=== PATIENT | male | born 1950 | race Caucasian/White ===

== ENCOUNTER → 2020-02-20 10:53 | Outpatient (BNVA) | payer MEDICARE, BC, SELFPAY | PROVIDERS: PCP Internal Medicine Endocrinology, Diabetes & Metabolism; Visit Provider Urology | DX: C61 Malignant neoplasm of prostate (principal); E29.1 Testicular hypofunction | CPT/HCPCS: 99212; Q3014 ==

== ENCOUNTER → 2020-08-20 10:01 | Outpatient (BNVA) | payer MEDICARE, SELFPAY | PROVIDERS: PCP Internal Medicine Endocrinology, Diabetes & Metabolism; Visit Provider Urology | DX: C61 Malignant neoplasm of prostate (principal); E29.1 Testicular hypofunction | CPT/HCPCS: 99212 ==

== ENCOUNTER → 2021-04-07 11:38 | Outpatient (BNVA) | payer MEDICARE, BC, SELFPAY | PROVIDERS: PCP Internal Medicine Endocrinology, Diabetes & Metabolism; Visit Provider Urology | DX: Z13.89 Encounter for screening for other disorder (principal) | CPT/HCPCS: 99212 ==

== ENCOUNTER → 2021-10-28 11:50 | Outpatient (BNVA) | payer MEDICARE, BC, SELFPAY | PROVIDERS: PCP Internal Medicine Endocrinology, Diabetes & Metabolism; Visit Provider Urology | DX: E29.1 Testicular hypofunction (principal); C61 Malignant neoplasm of prostate | CPT/HCPCS: Q3014 ==

== ENCOUNTER → 2022-07-20 15:16 | Outpatient (BNVA) | payer MEDICARE, BC, SELFPAY | PROVIDERS: PCP Internal Medicine Endocrinology, Diabetes & Metabolism; Visit Provider Urology | DX: E29.1 Testicular hypofunction (principal); R39.15 Urgency of urination; C61 Malignant neoplasm of prostate | CPT/HCPCS: 99212 ==

== ENCOUNTER 2023-02-08 11:40 | Outpatient (AMB) | payer MEDICARE, BC, SELFPAY ==
--- NOTE | 2023-02-08 11:42 | MHC.OFFVIS ---
Intake Intake Visit Reasons: 6m/labs(set) Intake Note: Patient is Present for Follow Up LABS Urology Medication: Tadalafil, testosterone Antibiotic Allergies: None Blood Thinners: None Allergies No Known Allergies Allergy (Verified 02/08/23 11:46) Medication List - Last Reconciled 02/08/23 by Dante Lemus MD allopurinol 300 mg PO DAILY atorvastatin 80 mg PO DAILY carvedilol 12.5 mg PO BID carvedilol 6.25 mg PO BID colchicine 0.6 mg PO DAILY dorzolamide-timolol 22.3-6.8 mg/mL 1 drp ophthalmic-Right BID fluoxetine 20 mg PO DAILY gabapentin 1,200 mg PO BID imipramine HCl 50 mg PO BID 90 days insulin syringe-needle U-100 (BD Insulin Syringe) As directed ketoconazole 2% topical DAILY PRN ketorolac 0.5% 1 drp ophthalmic (eye) QID latanoprost 0.005% 1 drp ophthalmic-Right DAILY lisinopril 5 mg PO DAILY nitroglycerin mg sublingual ondansetron HCl 4 mg PO Q8H prednisone 10 mg PO QAM spironolactone 25 mg PO DAILY syringe with needle As directed tadalafil 5 mg PO DAILY 90 days testosterone cypionate (Depo-Testosterone) 60 mg (0.3 mL) subcut QWEEK 4 weeks HPI HPI Comments History of Present Illness Details J Carlos is a pleasant male. He is a patient of Dr Dillon. He is seen for the following urologic conditions - hypogonadism - prostate cancer Follow-up from use of daily tadalafil Bladder has stabilized Has refill Will continue on testosterone represcribed Labs 04/15 PSA <0.1, T 400, 02/12 <0.1 T 380 Symptoms remain stable Continue with low-dose testosterone 6 month follow-up lab work Accompanied by Stephanie. She has run out of estradiol and requesting refill. Hypogonadism: T at 0.3 cc subcu weekly Tuesday He presents today for further evaluation and followup of his hypogonadism. Initial symptoms include erectile dysfunction Yes decreased libido Yes change in mood/depression Yes in muscle size/strength Yes increased fatigue/malaise Yes increased abdominal fat No tender breasts/gynecomastia No hair loss No osteopenia No The onset of symptoms has been gradual, over the past few years. 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 Therapeutic plan continue current medication - review in 6m. Prostate cancer: Grade group 3 radical prostatectomy 2008 For ED instructions given for use of MUSE. Can try sildenafil 200 mg. This is the maximum dose. Prescription provided. Prostate cancer was diagnosed 2008 Dr Lemus. Diagnosis was reached by needle biopsy, for elevated PSA, PSA at diagnosis 5.4. The [place] grade is 4+3 = 7, at surgery. TNM Classification of Malignant Tumours (TNM) T1c. The D'Spark[place] (NCCN) risk category is Intermediate Risk (PSA 10-20, Gl 7, T2). Initial therapy included Primary treatment, Prostatectomy (RRP/Robotic) 2008 , Additional treatment, Observation. Recent labs included a PSA (prostate-specific antigen) 2015, < 0.1 05/07 , a PSA (prostate-specific antigen), < 0.1 03/10 , a PSA (prostate-specific antigen), < 0.1 09/07 , a PSA (prostate-specific antigen), < 0.1 08/10 PSA < 0.1, 02/09 <0.1 - 08/11 <0.1 Therapeutic plan: Continue with surveillance [facility] Medical History Gout Hypercholesterolemia Depression Hypogonadism in male Stress incontinence, male HTN (hypertension) Glaucoma Erectile dysfunction after radical prostatectomy Prostate cancer Surgical History History of surgery Review of Systems Const Denies chills and Denies fever(s) Card Reports no additional complaints and Denies syncope Resp Denies cough GI Denies abdominal pain and Denies heartburn Reports as per HPI and Denies change in libido Neuro Denies syncope Psych Denies change in libido Endo Denies change in libido Physical Exam Const General: cooperative, healthy appearing, comfortable and no acute distress Orientation/consciousness: patient oriented x3 HEENT Face and sinus: Yes normal facial exam Mouth: moist mucous membranes Neck Neck: Yes normal visual inspection, Yes full ROM and Yes trachea midline Chest Chest palpation & inspection: normal inspection of the chest Resp Effort & Inspection: normal respiratory effort, able to speak in complete sentences and no respiratory distress GI Inspection: Yes normal to inspection Back/Spine/Pelvis Cervical Spine: normal cervical lordosis Thoracic/Lumbar Spine: thoracic and lumbar spine normal to inspection Skin General skin exam: no rashes or lesions noted Neuro General: patient oriented x3, gait normal, tone normal and moves all extremities Extrem General: Yes normal to inspection and Yes capillary refill normal Assessment & Plan Assessment & Plan (1) Hypogonadism in male: Code(s): E29.1 - Testicular hypofunction (2) Prostate cancer: Code(s): C61 - Malignant neoplasm of prostate Plan Six month follow-up Orders: Orders Prostate Specific Antigen 6 Months E29.1 - Testicular hypofunction Testosterone, Total 6 Months E29.1 - Testicular hypofunction Complete Blood Count no Diff 6 Months E29.1 - Testicular hypofunction Patient Instructions: Imaging studies, laboratory and physical exam results were discussed and reviewed in detail. No major barriers to patient understanding were identified. An opportunity to ask questions regarding the treatment plan was provided. All questions were answered. The patient expressed understanding and agreement with the above treatment plan. The patient is aware they should contact our office by phone for worsening of their current condition or the appearance of new urologic symptoms. Compliance is encouraged with any medications and followup testing that is ordered. It is a privilege to participate in the urologic care of your patient. If you have any questions or concerns regarding treatment for the above conditions, or other urologic issues, please do not hesitate to contact me. The office telephone contact is [phone]. This note is constructed using voice recognition software. While every effort has been made to ensure accuracy players assistant errors may have been included. Yours sincerely, Dr Dante Lemus MD, [facility] - Urology Providers of Expert, Compassionate Care for the Genitourinary System Coding Level of Care Code Est Pt Level 3 (56557) Diagnoses Hypogonadism in male E29.1 Prostate cancer C61
== END 2023-02-08 12:27 | disposition home or self-care (01) ==
PROVIDERS: Visit Provider Urology
DX: E29.1 Testicular hypofunction (principal); C61 Malignant neoplasm of prostate
CPT/HCPCS: 99213

== ENCOUNTER → 2023-02-08 11:40 | Outpatient (BNVA) | payer MEDICARE, BC, OTHER, SELFPAY | PROVIDERS: Visit Provider Urology | DX: E29.1 Testicular hypofunction (principal); C61 Malignant neoplasm of prostate | CPT/HCPCS: 99212 ==

== ENCOUNTER 2024-01-06 14:18 | Outpatient (AMB) | payer MEDICARE, SELFPAY ==
--- NOTE | 2024-01-06 16:10 | MHC.OFFVIS ---
Intake Visit Reasons: PSA/Testo/cbc follow up(set) Intake Note: Patient is present for Telephone Labs follow up= PSA/TESTO/CBC Urology Med: Testosterone, Tadalafil Antibiotic Allergy: None Blood Thinner: None PSA: 11/18/23- <0.1 Testosterone: 11/18/23 61 Hemoglobin A1C 11.8 Application Systems Administrator Required: No Accompanied by: Self / Same As Patient Allergies No Known Allergies Allergy (Verified 01/06/24 16:10) HPI Comments Details: J Carlos is a pleasant male. He is a patient of Dr Dillon. He is seen for the following urologic conditions - hypogonadism - prostate cancer Telemedicine Evaluation 15 min Consultation DoxLensAR Arkesh Video attempted Restarted testosterone last month Labs from October extremely low Bladder is continued to show stabilization with daily tadalafil Does occasionally have episodes where he urinates excessive amounts Labs 04/15 PSA <0.1, T 400, 02/12 <0.1 T 380, 11/14 T 61 <0.1 Symptoms remain stable Continue with low-dose testosterone 6 month follow-up lab work Hypogonadism: T at 0.3 cc subcu weekly Wed He presents today for further evaluation and followup of his hypogonadism. Initial symptoms include erectile dysfunction Yes decreased libido Yes change in mood/depression Yes in muscle size/strength Yes increased fatigue/malaise Yes The onset of symptoms has been gradual, over the past few years. 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 Therapeutic plan continue current medication - review in 6m. Prostate cancer: Grade group 3 radical prostatectomy 2008 For ED instructions given for use of MUSE. Can try sildenafil 200 mg. This is the maximum dose. Prescription provided. Prostate cancer was diagnosed 2008 Dr Lemus. Diagnosis was reached by needle biopsy, for elevated PSA, PSA at diagnosis 5.4. The [place] grade is 4+3 = 7 at surgery. TNM Classification of Malignant Tumours (TNM) T1c. The D'Sparkle (NCCN) risk category is Intermediate Risk (PSA 10-20, Gl 7, T2). Initial therapy included Primary treatment, Prostatectomy (RRP/Robotic) 2008 , Additional treatment, Observation. Recent labs included a PSA (prostate-specific antigen) 2015, < 0.1 05/07 , a PSA (prostate-specific antigen), < 0.1 03/10 , a PSA (prostate-specific antigen), < 0.1 09/07 , a PSA (prostate-specific antigen), < 0.1 08/10 PSA < 0.1, 02/09 <0.1 - 08/11 <0.1 Therapeutic plan: Continue with surveillance [facility] Medical History Gout Hypercholesterolemia Depression Hypogonadism in male Stress incontinence, male HTN (hypertension) Glaucoma Erectile dysfunction after radical prostatectomy Prostate cancer Surgical History History of surgery Review of Systems Const All systems reviewed & are unremarkable except as noted in HPI and below Reports no additional complaints Resp Reports no additional complaints GI Reports no additional complaints Reports as per HPI Musc Reports no additional complaints Physical Exam Telemedicine evaluation Appropriate responses Regular breathing rate and rhythm HEENT Head: Yes normal to inspection Ears: hearing grossly normal bilaterally Eyes General: appearance normal, both eyes and all related structures Neck Neck: Yes normal visual inspection Chest Chest palpation & inspection: normal inspection of the chest Resp Effort & Inspection: normal respiratory effort and able to speak in complete sentences Telehealth Telehealth Telehealth Platform: [facility] Location of provider rendering services: practice address Location of patient: address on file Patient Identification confirmed using: Name, : Yes Telehealth method: video Patient verbally consented to treatment: Yes Patient verbally consented to billing insurance company: Yes Patient informed of any privacy concerns related to visit: Yes Minutes spent on Phone/Video with Pt.: 15 Assessment & Plan Assessment & Plan (1) Prostate cancer: Code(s): C61 - Malignant neoplasm of prostate Category: Medical (2) Urinary urgency: Code(s): R39.15 - Urgency of urination Category: Medical Plan Five month follow-up lab work Orders: Orders Prostate Specific Antigen 5 Months E29.1 - Testicular hypofunction Testosterone, Total 5 Months E29.1 - Testicular hypofunction Complete Blood Count no Diff 5 Months E29.1 - Testicular hypofunction Medications: Discontinued imipramine HCl Discontinued Reason: Patient Completed Course 50 mg PO BID 90 days 180 tabs 2RF Patient Instructions: Imaging studies, laboratory and physical exam results were discussed and reviewed in detail. No major barriers to patient understanding were identified. An opportunity to ask questions regarding the treatment plan was provided. All questions were answered. The patient expressed understanding and agreement with the above treatment plan. The patient is aware they should contact our office by phone for worsening of their current condition or the appearance of new urologic symptoms. Compliance is encouraged with any medications and followup testing that is ordered. It is a privilege to participate in the urologic care of your patient. If you have any questions or concerns regarding treatment for the above conditions, or other urologic issues, please do not hesitate to contact me. The office telephone contact is [phone]. This note is constructed using voice recognition software. While every effort has been made to ensure accuracy arranger assembler errors may have been included. Yours sincerely, Dr Dante Lemus MD, [facility] - Urology Providers of Expert, Compassionate Care for the Genitourinary System Coding Level of Care Code Tele Est Pt Level 4 (30778) Diagnoses Prostate cancer C61 Urinary urgency R39.15
--- OUTSIDE RECORDS SUMMARY | 2024-01-13 12:01 | XMS_ITS | Continuity of Care Document ---
Author Organization [facility] Address [address] [place] [id number]- Care Team Providers Care Mineralogy Teacher Name Role Phone Eve Warren MD, Larissa Medina Primary Care Physic sophia [place] [facility] [place]): [place] 02/10/23 [facility] [address] [place] [id number]- Attending Physician: Isidoro Marx MD Allergies, Adverse Reactions, Alerts No Known Allergies Immunizations Given and Recorded Vaccine Date Status Refusal Reason influenza virus vaccine, inactivated 11/27/14 Give n pneumococcal 23-valent vaccine 1 12/15/10 Given 1Early/Late Reason: Other: Medications acetaminophen 500 mg oral tablet 2 tablet = 1,000 mg, By Mouth, Every 6 hours, 0 Refills, Maintenance, 02/03/23 11:28:00 EST, Partial fill upon patient request if the prescription is for a schedule II opioid drug. Start Date: 02/03/23 Status: Ordered acetaminophen-oxycodone 325 mg-7.5 mg oral tablet 1 tablet, By Mouth, 3 times a day, PRN Pain , Severe, (UP TO THREE TIMES DAILY) Start Date: 04/25/22 Status: Ordered allopurinol 300 mg oral tablet 300 mg, 1, tablet, By Mouth, Daily, Maintenance, 11/19/21 12:17:00 EDT, Partial fill upon patient request if the prescription is for a schedule II opioid drug. Start Date: 11/19/21 Status: Ordered amLODIPine 5 mg oral tablet 1 tablet, By Mouth, Daily, # 90 tablet, 3 Refills, Maintenance, 12/14/22 7:57:00 EDT, [id number], 178, cm, 10/15/22 8:07:00 EDT, Height, 99.3, kg, 08/22/22 14:01:00 EDT, Dry Weight Start Date: 12/14/22 Status: Ordered aspirin 81 mg oral delayed release tablet 81 mg, 1, tablet, By Mouth, Daily, Maintenance, 04/25/22 13:00:00 EST, Partial fill upon patient request if the prescription is for a schedule II opioid drug. Start Date: 04/25/22 Status: Ordered atorvastatin 80 mg oral tablet 1 tablet, By Mouth, Daily, # 90 tablet, 3 Refills, Maintenance, 11/22/22 7:50:00 EDT, [id number], 178, cm, 10/15/22 8:07:00 EDT, Height, 99.3, kg, 08/22/22 14:01:00 EDT, Dry Weight Start Date: 11/22/22 Status: Ordered carvedilol 12.5 mg oral tablet 1, tablet, By Mouth, 2 times a day, # 180 tablet, Refills 3, Maintenance, 02/10/23 15:08:00 EST, Route to Pharmacy Electronically, [id number], 178, cm, 02/03/23 11:28:00 EST, Height, 99.3, kg, 08/22/22 14:01:00 EDT, Dry Weight Start Date: 02/10/23 Status: Ordered CeleBREX 50 mg oral capsule 1 capsule = 50 mg, By Mouth, 2 times a day, 0 Refills, Maintenance, 10/15/22 8:17:00 EDT, Partial fill upon patient request if the prescription is for a schedule II opioid drug. Start Date: 10/15/22 Status: Ordered Chondroitin-Glucosamine 1 tablet, By Mouth, 2 times a day, Maintenance, 04/25/22 13:09:00 EST, Partial fill upon patient request if the prescription is for a schedule II opioid drug. Start Date: 04/25/22 Status: Ordered donepezil 5 mg oral tablet 1, tablet, By Mouth, Daily at bedtime, # 90 tablet, Refills 1, Maintenance, 11/10/22 14:37:00 EDT, Route to Pharmacy Electronically, [id number], 178, cm, 10/15/22 8:07:00 EDT, Height, 99.3, kg, 08/22/22 14:01:00 EDT, Dry Weight Start Date: 11/10/22 Status: Ordered dorzolamide-timolol 2.23%-0.68% ophthalmic solution 1 drops, Eye, Right, 2 times a day Start Date: 11/19/21 Status: Ordered duloxetine 30 mg oral enteric coated capsule 1 capsule = 30 mg, By Mouth, Daily, start taking from 11/28/21, # 30 capsule, 0 Refills, Maintenance, 11/28/21 9:00:00 EDT, [facility], Partial fill upon patient request if the prescription is for a schedule II opioid drug., 187, cm, 10/0... Start Date: 11/28/21 Status: Ordered furosemide 40 mg oral tablet See Instructions, 1 TABLET BY MOUTH EVERY TUESDAY, TUESDAY AND TUESDAY, # 39 tablet, Refills 1, Maintenance, 01/24/23 7:47:00 EST, Instructions Replace Required Details, Route to Pharmacy Electronically, [id number], 178, cm, 10/15/22 8:07:00 EDT,... Start Date: 01/24/23 Status: Ordered gabapentin 300 mg oral capsule 900 mg, 3, capsule, By Mouth, 2 times a day, # 180 capsule, Refills 5, Tot. Refills 5, Maintenance,10/15/22 8:33:00 EDT, Route to Pharmacy Electronically, [facility]/pharmacy #[id number], 178, cm, 10/15/22 8:07:00 EDT, Height, 99.3, kg, 08/22/22 14:01:00 EDT, Dry... Start Date: 10/15/22 Stop Date: 04/13/23 Status: Ordered latanoprost 0.005% ophthalmic solution 1 drops, Eye, Right, Daily at bedtime, 0 Refills, Maintenance, 01/01/18 18:46:39 EST Start Date: 01/01/18 Status: Ordered Multivitamin 1 tab, By Mouth, Daily, 0 Refills, Maintenance, 01/01/18 20:23:10 EST Start Date: 01/01/18 Status: Ordered naloxone 4 mg/0.1 mL nasal spray = 4 mg, Naris, Right, Once, may repeat every 2 to 3 minutes until patient responds, # 2 each, 0 Refills, Soft Stop, 08/22/22 16:30:00 EDT, [facility], Partial fill upon patient request if the prescription is for a schedule II opioid drug... Start Date: 08/22/22 Status: Ordered nitroglycerin 0.4 mg sublingual tablet 1 tablet = 0.4 mg, Sublingual, Every 5 minutes, PRN for chest pain, not to exceed 3 doses/15 min--if pain persists, seek medical attention, # 100 tablet, 1 Refills, Maintenance, 05/29/21 14:41:00 EDT, Tablet, [facility]/pharmacy #[id number], 186, cm, 05/29/21 14:1... Start Date: 05/29/21 Status: Ordered Potassium Chloride (Eqv-K-Tab) 20 mEq oral tablet, extended release 2 tablet = 40 mEq, By Mouth, Every Tuesday, Tuesday and Tuesday, Maintenance, 04/25/22 13:05:00 EST, Partial fill upon patient request if the prescription is for a schedule II opioid drug. Start Date: 04/25/22 Status: Ordered potassium chloride 10 mEq oral tablet, extended release = 20 mEq, By Mouth, Once, # 30 capsule, 0 Refills, Soft Stop, 02/10/23 15:02:00 EST, ER Tablet, [facility]/pharmacy #[id number], Partial fill upon patient request if the prescription is for a schedule II opioid drug., 178, cm, 02/03/23 11:28:00 EST, Height, 99.3,... Start Date: 02/10/23 Status: Ordered rocío stockings 15 to 20 rocío stockings 15 to 20, See Instructions, # 1 each, Refills 0, Tot. Refills 0, Maintenance, rocío stockings 15-20 mmHg, 11/24/21 11:14:00 EDT, Supply, 187, cm, 11/24/21 7:18:00 EDT, Height, 91, kg, 11/20/21 17:55:00 EDT, Dry Weight Start Date: 11/24/21 Status: Ordered Testosterone Cypionate 200 mg/mL intramuscular solution 0.2 mL = 40 mg, Intramuscular, Every Tuesday Start Date: 11/19/21 Status: Ordered thiamine 100 mg oral tablet 100 mg, 1, tablet, By Mouth, 2 times a day, # 60 tablet, Refills 0, Tot. Refills 0, Maintenance, 11/24/21 11:13:00 EDT, Route to Pharmacy Electronically, [facility], Partial fill upon patient request if the prescription is for a schedule... Start Date: 11/24/21 Stop Date: 12/24/21 Status: Ordered Vitamin B12 1 tablet, By Mouth, Daily, Maintenance, 11/19/21 12:36:00 EDT, Partial fill upon patient request ifthe prescription is for a schedule II opioid drug. Start Date: 11/19/21 Status: Ordered Vitamin C 500 mg oral tablet 1 tablet = 500 mg, By Mouth, Daily, 0 Refills, Maintenance, 01/01/18 20:21:31 EST Start Date: 01/01/18 Status: Ordered Vitamin D3 1000 intl units oral capsule 1 capsule = 1,000 International_Units, By Mouth, Daily, 0 Refills, Maintenance, 02/03/18 14:16:59 EST, Capsule Start Date: 02/03/18 Status: Ordered Problem List Condition Confirmation Course Effective Dates Status Health St atus Informant Chronic kidney disease, stage 3 Confirmed Active Coronary artery disease Confirmed Active COVID-19 1 Confirmed 11/24/21 Active Hypertension Confirmed Active Hypokalemia Confirmed Active Cognitive impairment Confirmed Active Obese class I Confirmed Active 1Problem added by Discern Expert Vital Signs Most recent to oldest [Reference Range]: 1 2 Height 178 cm (02/03/23 11:28 AM) 178 cm (02/03/23 11:17 AM) Weight 96.3 kg (02/03/23 11:17 AM) Oxygen Saturation [94-100 %] 99 % (02/03/23 11:17 AM) Pulse Rate [55-90 bpm] 84 bpm (02/03/23 11:28 AM) 80 bpm (02/03/23 11:17 AM) Body Mass Index [18.5-24.99 kg/m2] 30.39 kg/m2 *>HHI* (02/03/23 11:17 AM) Blood Pressure [90-138/55-84 mm Hg] 127/ 74mm Hg (02/03/23 11:28 AM) 142/72mm Hg *H* (02/03/23 11:17 AM) Mode of Delivery (Oxygen) Room air (02/03/23 11:17 AM) Blood pressure sites Arm, right (02/03/23 11:28 AM) Arm, left (02/03/23 11:17 AM) Weight Obtained Via Bed scale (02/03/23 11:17 AM) Social History Social History Type Response Smoking Status Never smoker; Tobacc o user in household: No entered on: 09/03/14 Sex Cardiology Outpatient Note * Araseli CABEZAS, Isidoro Perry: PERFORM Event Display: Cardiology Note Office Authored Date: [id number] Patient: ??KRISTEN BRONSON ? Age:??72 Years?Sex:??Male?:??1950?? Indication for Consult JORDIN follow up History of Present Illness/Interval History It was a pleasure seeing??Kristen??in follow-up.?? He is accompanied by his .?? He had??COVID 15days ago. ??Presented as mostly GI symptoms, especially nausea.?? His had??pulmonary symptoms.??They were both positive for COVID.?? Neither required hospitalization. ??Both are back to baseline now.?? Kristen??has left hip??replacement surgery planned for March [address] Thompson??at [facility]. Review of Systems 10+ system ROS performed, pertinent positives and negatives in HPI and below. ??See scanned patientquestionnaire. Physical Exam Vitals & Measurements HR:??84??(Peripheral)?? BP:??127/74?? SpO2:??99%?? HT:??178??cm?? WT:??96.3??kg?? BMI:??30.39?? Weight lb/oz: 212 lb 5 oz Gen: pleasant, in no distress on room air Resp: lungs clear to auscultation bilaterally CV: normal rate, regular rhythm, no murmurs rubs or gallops. Ext: ??No JVD. ??No lower extremity edema. No carotid bruits.?? Assessment/Plan 72-year-old male with past medical history as below presents for follow-up.?? Had COVID-19 about 2 weeks ago, otherwise doing well from a cardiovascular standpoint. ??Denies??chest pain or shortness of breath with exertion. ??Plan for??left total hip replacement??March 16, 2023 as above. ??Based on the Joseph??perioperative risk calculator, Kristen's expected risks??of intra or??perioperative myocardial infarction or cardiac arrest is??less than 1%. ??This is considered low risk. ??Would??proceed with surgery with no further cardiovascular testing??if this risk is acceptable??to the surgeon. ?? Coronary artery disease: Continue aspirin, high intensity statin Hypertension: Well-controlled. ??Continue amlodipine,??carvedilol??at current doses Class I obesity: Recommend weight loss via diet and exercise. ??He is hoping that??his ability to exercise will be significantly improved after??his hip replacement. ?? 1.??Coronary artery disease 2.??Chronic kidney disease, stage 3 3.??COVID-19 4.??Hypertension 5.??Hypokalemia 6.??Obese class I Total Time Spent I personally spent a total of??33 minutes, including both [id number] and [id number]-face time onthe date of the encounter, addressing the above diagnoses. ? The above note was prepared with the help of voice recognition software. Please excuse any grammatical or spelling errors that may have occurred. ?? Thank you for involving me in the care of this patient. ??Please do not hesitate to contact me withquestions or concerns. ?? Isidoro Marx MD [facility] [phone] ?? [address] [place] [address] Allergies NKA Home Medications acetaminophen 500 mg oral tablet, 1000 mg= 2 tablet, By Mouth, Every 6 hours acetaminophen-oxycodone 325 mg-7.5 mg oral tablet, 1 tablet, By Mouth, 3 times a day, PRN allopurinol 300 mg oral tablet, 300 mg= 1 tablet, By Mouth, Daily amLODIPine 5 mg oral tablet, 1 tablet, By Mouth, Daily aspirin 81 mg oral delayed release tablet, 81 mg= 1 tablet, By Mouth, Daily atorvastatin 80 mg oral tablet, 1 tablet, By Mouth, Daily CeleBREX 50 mg oral capsule, 50 mg= 1 capsule, By Mouth, 2 times a day Chondroitin-Glucosamine, 1 tablet, By Mouth, 2 times a day Coreg 12.5 mg oral tablet, 12.5 mg= 1 tablet, By Mouth, 2 times a day, 3 refills donepezil 5 mg oral tablet, 1 tablet, By Mouth, Daily at bedtime dorzolamide-timolol 2.23%-0.68% ophthalmic solution, 1 drops, Eye, Right, 2 times a day duloxetine 30 mg oral enteric coated capsule, 30 mg= 1 capsule, By Mouth, Daily furosemide 40 mg oral tablet, See Instructions gabapentin 300 mg oral capsule, 900 mg= 3 capsule, By Mouth, 2 times a day, 5 refills latanoprost 0.005% ophthalmic solution, 1 drops, Eye, Right, Daily at bedtime Multivitamin, 1 tab, By Mouth, Daily naloxone 4 mg/0.1 mL nasal spray, 4 mg, Naris, Right, Once nitroglycerin 0.4 mg sublingual tablet, 0.4 mg= 1 tablet, Sublingual, Every 5 minutes, PRN, 1 refills Potassium Chloride (Eqv-K-Tab) 20 mEq oral tablet, extended release, 40 mEq= 2 tablet, By Mouth, Every Tuesday, Tuesday and Tuesday rocío stockings 15 to 20, See Instructions Testosterone Cypionate 200 mg/mL intramuscular solution, 40 mg= 0.2 mL, Intramuscular, Every Tuesday thiamine 100 mg oral tablet, 100 mg= 1 tablet, By Mouth, 2 times a day Vitamin B12, 1 tablet, By Mouth, Daily Vitamin C 500 mg oral tablet, 500 mg= 1 tablet, By Mouth, Daily Vitamin D3 1000 intl units oral capsule, 1000 International_Units= 1 capsule, By Mouth, Daily Lab Results Cardiology Labs WBC: 8.7 k/mm3 (01/24/23) RBC:??4.34 m/mm3??Low (01/24/23) Hgb:??13.5 Gm/dL??Low (01/24/23) Hct: 42.8 % (01/24/23) MCV:??98.6 femtoliters??High (01/24/23) MCH: 31.1 pg (01/24/23) MCHC:??31.5 g/dL??Low (01/24/23) Platelet Count: 228 k/mm3 (01/24/23) RDW-SD:??60.4 femtoliters??High (01/24/23) Nucleated RBC (Automated): 0 #/100 WBC'S (01/24/23) Abs. Neut: 6.4 k/mm3 (01/24/23) Abs. Lymph: 1.3 k/mm3 (01/24/23) Abs. Pinal: 0.8 k/mm3 (01/24/23) Abs. Eo: 0.3 k/mm3 (01/24/23) Abs. Baso: 0.1 k/mm3 (01/24/23) Neut %: 72.7 % (01/24/23) Pinal %: 8.7 % (01/24/23) Eos %: 2.9 % (01/24/23) Baso %: 0.7 % (01/24/23) Imm Gran: 0.5 % (01/24/23) Abs. Imm Gran: 0 k/mm3 (01/24/23) INR:??1.2??High (04/25/22) Protime (PT):??13 seconds??High (04/25/22) Sodium: 145 mmol/L (01/24/23) Potassium: 3.8 mmol/L (01/24/23) Chloride: 106 mmol/L (01/24/23) Bicarbonate Level: 28 mmol/L (01/24/23) Glucose Level:??140 mg/dL??High (01/24/23) BUN: 15 mg/dL (01/24/23) Creatinine-Blood: 1.1 mg/dL (01/24/23) Calcium: 9.2 mg/dL (01/24/23) Protein, Total: 6.2 Gm/dL (01/24/23) Albumin: 4.2 Gm/dL (01/24/23) Alkaline Phosphatase: 114 units/L (01/24/23) AST (SGOT): 17 units/L (01/24/23) ALT (SGPT): 14 units/L (01/24/23) Bilirubin, Total: 0.3 mg/dL (01/24/23) Nt-Probnp:??1890 pg/mL??High (04/25/22) TSH: 1.29 uIU/mL (06/30/22) Diagnostic Impression ECG ECG 12-Lead ?? 07:45:19 Please click on pdf link to open report ?? Signed By: Linus Laughlin MD ?? ECG 12-Lead ?? 07:45:19 Ventricular Rate: 90 BPM Atrial Rate: 90 BPM P-R Interval: 190 ms QRS Duration: 90 ms Q-T Interval: 368 ms QTC Calculation(Bazett): 450 ms P Phoenix: 64 degrees R Phoenix: 1 degrees T Phoenix: 68 degrees Normal sinus rhythm Possible Inferior infarct , age undetermined Abnormal ECG When compared with ECG of 19-NOV-2021 03:57, T wave inversion no longer evident in Inferior leads Nonspecific T wave abnormality now evident in Lateral leads Confirmed by LINUS LAUGHLIN ([id number]) on 04/25/2022 9:17:53 AM ?? Homer: LINUS LAUGHLIN ?? Signed By: Linus Laughlin MD Echo Echocardiogram - Complete ?? 09:16:39 Summary The left ventricle is poorly visualized but improved with contrast enhancement. The apical views are still foreshortened. The left ventricular size is normal. The left ventricular wall thickness is mildly increased. There is mild concentric left ventricular hypertrophy. The LV systolic function is normal . The left ventricular ejection fraction is 60-65 %. There are no regional wall motion abnormalities. Unable to assess diastolic function . ?? The aortic valve is trileaflet . The non-coronary cusp is mildly thickened and calcified . The aortic valve leaflet opening is mildly decreased . There is no significant aortic stenosis. There is no aortic regurgitation. ?? The right ventricle is poorly visualized. The right ventricle is normal in size. Right ventricular systolic function appears preserved. ?? The tricuspid valve is grossly normal. There is moderate tricuspid valve regurgitation. ?? The pulmonary artery systolic pressure estimation is 33 mmHg plus right atrial pressure. ?? Comparison Comparison is made to the study of March 14, 2018. There is moderate tricuspid valve regurgitation. ?? Signature ?? Signed By: Moon CABEZAS, Jerry Andrews Problem List/Past Medical History Ongoing Chronic kidney disease, stage 3 Cognitive impairment Coronary artery disease COVID-19 Hypertension Hypokalemia Obese class I Procedure/Surgical History No qualifying data available. Social History Alcohol Use: Current. Frequency: Daily. Type: Beer. Alcohol use in household: Yes. Tobacco Never smoker, Tobacco user in household: No. Family History Mother: Cancer of breast Father: Liver cancer ?-NOV-2015 23:30:20<$> Brother: Cancer of prostate Patient Care team information Care Team Personnel Name: Christiano Hernandez RN Position: [facility] RN Member Role: Primary Care Nurse Name: Nova Soto RN Position: [facility] ED RN W/OE and Tasks Member Role: Primary Care Nurse Name: Larissa Griggs MD Position: [facility] Physician - Endocrinology Member Role: PCP Address: Address: [address] [place] [address] [facility] [place] [address]- Name: Zara Gongora Position: [facility] Outreach Member Role: Lifetime Consulting Physician Name: China Gomez Position: [facility] RN Member Role: Primary Care Nurse Name: Arpit Davis RN Position: [facility] ED RN W/OE and Tasks Member Role: Primary Care Nurse Name: Gala Schwartz RN Position: [facility] RN Member Role: Primary Care Nurse Name: Marc Sidhu DO Position: [facility] Renal MD Member Role: Lifetime Consulting Physician Address: Address: [address] [place] [address] [address] [facility] [place], [place] [address] Name: Abraham MURRELL, Lonnie Perry Position: [facility] RN Member Role: Primary Care Nurse Name: Jason Anand RN Position: [facility] RN Member Role: Primary Care Nurse Name: Jannette Boyer RN Position: [facility] SN RN Member Role: Primary Care Nurse Name: Sarina Del Rio RN Position: [facility] Onco RN Member Role: Primary Care Nurse Care Team Related Persons Name: TRINIDAD CRUMP Name: ELICIA BRONSON Address: home [address] [place] [address]
--- OUTSIDE RECORDS SUMMARY | 2024-01-13 12:01 | XMS_ITS | Continuity of Care Document ---
Author Organization [facility] ter Address [address] [place] [id number]- Care Team Providers Care Dish Stacker Name Role Phone Eve Warren MD, Larissa Medina Primary Care Physic sophia Encounter [facility] [place] Date(s): 06/21/23 - 06/21/[address] [address]- Encounter Diagnosis Arthritis of right hip(Final) - 06/21/23 Discharge Disposition: A-D/C Home Attending Physician: Rossy Gonzales MD Admitting Physician: Rossy Gonzales MD Referring Physician: Not on Staff, Referring MD Allergies, Adverse Reactions, Alerts No Known [...] opioid drug. Start Date: 02/03/23 Status: Ordered allopurinol 300 mg oral tablet 300 mg, 1, tablet, By Mouth, Daily, Maintenance, 11/19/21 12:17:00 EDT, Partial fill upon patient request if the prescription is for a schedule II opioid drug. Start Date: 11/19/21 Status: Ordered amLODIPine 5 mg oral tablet 5 mg, By Mouth, Daily, Refills 0, Maintenance, 03/17/23 8:20:00 EST, Partial fill upon patient request if the prescription is for a schedule II opioid drug. Start Date: 03/17/23 Status: Ordered Aspirin Tablet 325 mg, By Mouth, 2 times a day, Refills 0, Maintenance, 03/17/23 8:19:00 EST, Partial fill upon patient request if the prescription is for a schedule II opioid drug. Start Date: 03/17/23 Status: Ordered atorvastatin 80 mg oral tablet 1 tablet, By Mouth, Daily, # 90 tablet, 3 Refills, Maintenance, 11/22/22 7:50:00 EDT, [id number], 178, cm, 10/15/22 8:07:00 EDT, Height, 99.3, kg, 08/22/22 14:01:00 EDT, Dry Weight Start Date: 11/22/22 Status: Ordered carvedilol 12.5 mg oral tablet 1, tablet, By Mouth, 2 times a day, # 180 tablet, Refills 3, Maintenance, 02/10/23 15:08:00 EST, Route to Pharmacy Electronically, [id number], 178, cm, 02/03/23 11:28:00 EST, Height, 99.3, kg, 08/22/22 14:01:00 EDT, Dry Weight Start Date: 02/10/23 Status: Ordered celecoxib 200 mg oral capsule = 200 mg, By Mouth, Daily, Paitent was taking at home, monitor kidney function, 0 Refills, Maintenance, 03/17/23 8:19:00 EST, Capsule, Partial fill upon patient request if the prescription is for a schedule II opioid drug. Start Date: 03/17/23 Status: Ordered Colace Capsule 100 mg, 1, capsule, By Mouth, 2 times a day, Refills 0, Maintenance, 03/17/23 8:20:00 EST, Partial fill upon patient request if the prescription is for a schedule II opioid drug. Start Date: 03/17/23 Status: Ordered donepezil 5 mg oral tablet 1, tablet, By Mouth, Daily at bedtime, # 90 tablet, Refills 1, Maintenance, 11/10/22 14:37:00 EDT, Route to Pharmacy Electronically, [id number], 178, cm, 10/15/22 8:07:00 EDT, Height, 99.3, kg, 08/22/22 14:01:00 EDT, Dry Weight Start Date: 11/10/22 Status: Ordered dorzolamide-timolol 2.23%-0.68% ophthalmic solution 1 drops, Eye, Right, 2 times a day Start Date: 11/19/21 Status: Ordered duloxetine 30 mg oral enteric coated capsule 1 capsule = 30 mg, By Mouth, Daily, start taking from 11/28/21, # 30 capsule, 0 Refills, Maintenance, 11/28/21 9:00:00 EDT, [facility], Partial fill upon patient request if the prescription is for a schedule II opioid drug., 187, cm, 100... Start Date: 11/28/21 Status: Ordered furosemide 40 mg oral tablet See Instructions, 1 TABLET BY MOUTH EVERY TUESDAY, TUESDAY AND TUESDAY, # 39 tablet, Refills 1, Maintenance, 01/24/23 7:47:00 EST, Instructions Replace Required Details, Route to Pharmacy Electronically, [id number], 178, cm, 10/15/22 8:07:00 EDT,... Start Date: 01/24/23 Status: Ordered gabapentin 300 mg oral capsule 900 mg, 3, capsule, By Mouth, 2 times a day, # 180 capsule, Refills 5, Tot. Refills 5, Maintenance,10/15/22 8:33:00 EDT, Route to Pharmacy Electronically, [facility]/pharmacy #[id number], 178, cm, 10/15/22 8:07:00 EDT, Height, 99.3, kg, 08/22/22 14:01:00 EDT, Dry... Start Date: 10/15/22 Stop Date: 04/13/23 Status: Ordered gabapentin 300 mg oral capsule 900 mg, 3, capsule, By Mouth, 2 times a day, # 180 capsule, Refills 5, Tot. Refills 5, Maintenance,05/19/23 12:29:00 EDT, Route to Pharmacy Electronically, [id number], 186, cm, 04/20/23 21:24:00 EST, Height, 95.5, kg, 04/20/23 21:24:... Start Date: 05/19/23 Stop Date: 11/15/23 Status: Ordered latanoprost 0.005% ophthalmic solution 1 drops, Eye, Right, Daily at bedtime, 0 Refills, Maintenance, 01/01/18 18:46:39 EST Start Date: 01/01/18 Status: Ordered lidocaine 5% topical film 2 patch, Topically, Daily, remove patches after 12 hours, # 30 patch, 0 Refills, Maintenance, 04/20/23 19:59:00 EST, Film, [facility]/pharmacy #[id number], Partial fill upon patient request if the prescription isfor a schedule II opioid drug., 2 patch Topically D... Start Date: 04/20/23 Status: Ordered MorPHINE Inj 8 mg, Injection, Intramuscular, Every 4 hours, PRN for Pain , Severe, Routine, 06/21/23 15:58:00 EDT Start Date: 06/21/23 Stop Date: 06/28/23 Status: Ordered nitroglycerin 0.4 mg sublingual tablet 1 tablet = 0.4 mg, Sublingual, Every 5 minutes, PRN for chest pain, not to exceed 3 doses/15 min--if pain persists, seek medical attention, # 100 tablet, 1 Refills, Maintenance, 05/29/21 14:41:00 EDT, Tablet, [facility]/pharmacy #[id number], 186, cm, 05/29/21 14:1... Start Date: 05/29/21 Status: Ordered oxyCODONE 5 mg oral capsule 1 capsule = 5 mg, By Mouth, Every 6 hours, PRN for pain, # 28 capsule, 0 Refills, Maintenance, 04/20/23 19:53:00 EST, Capsule, [facility]/pharmacy #[id number], Partial fill upon patient request if the prescription is for a schedule II opioid drug., 186, cm, ... Start Date: 04/20/23 Status: Ordered oxyCODONE 5 mg oral tablet 5 mg, 1, tablet, By Mouth, Every 6 hours, PRN, # 7 tablet, Refills 0, Tot. Refills 0, Acute 06/22/23 15:30:00 EDT, as needed for pain, 06/21/23 15:29:00 EDT, Route to Pharmacy Electronically, [facility], Partial fill upon patient request... Start Date: 06/21/23 Stop Date: 06/22/23 Status: Ordered pantoprazole 40 mg oral delayed release tablet = 40 mg, By Mouth, Daily, 0 Refills, Maintenance, 03/17/23 8:20:00 EST, EC Tablet Start Date: 03/17/23 Status: Ordered Potassium Chloride (Eqv-K-Tab) 20 mEq oral tablet, extended release 2 tablet = 40 mEq, By Mouth, Every Tuesday, Tuesday and Tuesday, # 26 tablet, 0 Refills, Maintenance, 05/18/23 15:11:00 EDT, ER Tablet, [facility]/pharmacy #[id number], Partial fill upon patient request if the prescription is for a schedule II opioid drug., 186, c... Start Date: 05/18/23 Status: Ordered Potassium Chloride (Eqv-K-Tab) 20 mEq oral tablet, extended release See Instructions, 2 TABLET BY MOUTH EVERY TUESDAY, TUESDAY AND TUESDAY, # 26 tablet, 0 Refills, Maintenance, 05/30/23 13:43:00 EDT, [id number], 186, cm, 05/25/23 14:56:00 EDT, Height, 95.5, kg, 04/20/23 21:24:00 EST, Dry Weight Start Date: 05/30/23 Status: Ordered tadalafil 5 mg oral tablet TAKE ONE TABLET BY MOUTH EVERY DAY FOR BLADDED URGE Start Date: 02/11/23 Status: Ordered rocío stockings 15 to 20 rocío stockings 15 to 20, See Instructions, # 1 each, Refills 0, Tot. Refills 0, Maintenance, rocío stockings 15-20 mmHg, 11/24/21 11:14:00 EDT, Supply, 187, cm, 11/24/21 7:18:00 EDT, Height, 91, kg, 11/20/21 17:55:00 EDT, Dry Weight Start Date: 11/24/21 Status: Ordered Testosterone Cypionate 200 mg/mL intramuscular solution 0.3, Intramuscular, Every Tuesday Start Date: 11/19/21 Status: Ordered thiamine 100 mg oral tablet 100 mg, 1, tablet, By Mouth, 2 times a day, # 60 tablet, Refills 0, Tot. Refills 0, Maintenance, 11/24/21 11:13:00 EDT, Route to Pharmacy Electronically, [facility], Partial fill upon patient [...] Hypokalemia Confirmed Active Cognitive impairment Confirmed Active 1Problem added by Discern Expert Vital Signs Most recent to oldest [Reference Range]: 1 2 3 Height 186 cm (06/21/23 3:46 PM) 186 cm (06/21/23 2:53 PM) Oxygen Saturation [94-100 %] 98 % (06/21/23 3:46 PM) 99 % (06/21/23 2:53 PM) Pulse Rate [55-90 bpm] 77 bpm (06/21/23 3:46 PM) 78 bpm (06/21/23 2:53 PM) Blood Pressure [90-138/55-84 mm Hg] 158/70mm Hg *H* (06/21/23 3:46 PM) 159/79mm Hg *H* (06/21/23 2:53 PM) Respiratory Rate [16-30 br/min] 18 br/min (06/21/23 4:08 PM) 18 br/min (06/21/23 3:46 PM) 16 br/min (06/21/23 2:53 PM) Temperature [96.8-100.4 DegF] 98.1 DegF (06/21/23 3:46 PM) 97.9 DegF (06/21/23 2:53 PM) Mode of Delivery (Oxygen) Room air (06/21/23 3:46 PM) Room air (06/21/23 2:53 PM) Blood pressure sites Arm, left (06/21/23 3:46 PM) Arm, left (06/21/23 2:53 PM) Temperature Route Oral (06/21/23 3:46 PM) Oral (06/21/23 2:53 PM) Dry Weight 102 kg (06/21/23 3:46 PM) 102 kg (06/21/23 2:53 PM) Dry Weight Obtained Via Patient/family s tated (06/21/23 2:53 PM) Social History Social History Type Response Smoking Status Never smoker; Tobacc o user in household: No entered on: 09/03/14 Sex Patient Care team information Care Team Personnel Name: Christiano Hernandez RN Position: [facility] RN Member Role: Primary Care Nurse Name: Nova Soto RN Position: [facility] ED RN W/OE and Tasks Member Role: Primary Care Nurse Name: Larissa Griggs MD Position: [facility] Physician - Endocrinology Member Role: PCP Address: Address: [address] [place] [address] [facility] [place], [place] [address] Name: Zara Gongora Position: [facility] Outreach Member Role: Lifetime Consulting Physician Name: China Gomez Position: [facility] RN Member Role: Primary Care Nurse Name: Arpit Davis RN Position: [facility] ED RN W/OE and Tasks Member Role: Primary Care Nurse Name: Gala Schwartz RN Position: [facility] RN Member Role: Primary Care Nurse Name: Marc Sidhu DO Position: [facility] Renal MD Member Role: Lifetime Consulting Physician Address: Address: [address] [place], [place] [address] [place], [place] [address] Name: Lonnie Rosario RN Position: [facility] RN Member Role: Primary Care Nurse Name: Jason Anand RN Position: [facility] RN Member Role: Primary Care Nurse Name: Jannette Boyer RN Position: [facility] AMB Nurse Member Role: Primary Care Nurse Name: Toby Shafer RN Position: [facility] RN Member Role: Primary Care Nurse Name: Lesa Oneill RN Position: [facility] RN Member Role: Primary Care Nurse Name: Sarina Del Rio RN Position: [facility] Onco RN Member Role: Primary Care Nurse Name: Larissa Griggs MD Position: [facility] Physician - Endocrinology Med Service: Endocrinology Member Role: Primary Care Physician Address: Address: [address] [place] [address] [place] [address]- Care Team Related Persons Name: TRINIDAD CRUMP Name: ELICIA BRONSON Address: home [address] [id number]
--- OUTSIDE RECORDS SUMMARY | 2024-01-13 12:02 | XMS_ITS | Continuity of Care Document ---
Author Organization [facility] Address [address] [place] [id number]- Care Team Providers Care Radial Drill Operator Name Role Phone Eve Warren MD, Larissa Medina Primary Care Physic sophia Encounter [facility] [place] Date(s): 02/05/22 - 03/07/22 [facility] [address] [place] [id number]- [place] Allergies, Adverse Reactions, Alerts No Known Allergies Immunizations Given and Recorded Vaccine Date Status Refusal Reason influenza virus vaccine, inactivated 11/27/14 Give n pneumococcal 23-valent vaccine 1 12/15/10 Given 1Early/Late Reason: Other: Medications allopurinol 300 mg oral tablet 300 mg, 1, tablet, By Mouth, Daily, # 30 capsule, Maintenance, 11/19/21 12:17:00 EDT, Partial fill upon patient request if the prescription is for a schedule II opioid drug. Start Date: 11/19/21 Status: Ordered amLODIPine 5 mg oral tablet 1 tablet = 5 mg, By Mouth, Daily, # 90 tablet, 3 Refills, Maintenance, 12/17/21 15:20:00 EDT, Tablet, [facility]/pharmacy #[id number], Partial fill upon patient request if the prescription is for a schedule II opioid drug., 187, cm, 11/24/21 7:18:00 EDT, Height, 9... Start Date: 12/17/21 Stop Date: 12/12/22 Status: Ordered aspirin 81 mg oral delayed release tablet 162 mg, 2, tablet, By Mouth, Daily, Refills 3, Maintenance, 10/23/21 15:22:00 EDT, Partial fill upon patient request if the prescription is for a schedule II opioid drug. Start Date: 10/23/21 Stop Date: 01/21/22 Status: Ordered atorvastatin 80 mg oral tablet 1 tablet, By Mouth, Daily, # 90 tablet, 3 Refills, Maintenance, 11/03/21 16:31:00 EDT, [id number], 186, cm, 10/23/21 14:57:00 EDT, Height, 88.1, kg, 07/01/21 14:48:00 EDT, Dry Weight Start Date: 11/03/21 Status: Ordered Chondroitin = 800 mg, By Mouth, Daily, 0 Refills, Maintenance, 01/07/22 13:54:00 EST, Partial fill upon patientrequest if the prescription is for a schedule II opioid drug. Start Date: 01/07/22 Status: Ordered Coreg 12.5 mg oral tablet 12.5 mg, 1, tablet, By Mouth, 2 times a day, # 180 tablet, Refills 3, Tot. Refills 3, Maintenance, 12/17/21 15:20:00 EDT, Route to Pharmacy Electronically, [facility]/pharmacy #[id number], Partial fill upon patient request if the prescription is for a schedule II... Start Date: 12/17/21 Stop Date: 12/12/22 Status: Ordered dorzolamide-timolol 2.23%-0.68% ophthalmic solution 1 drops, Eye, Right, 2 times a day Start Date: 11/19/21 Status: Ordered duloxetine 30 mg oral enteric coated capsule 1 capsule = 30 mg, By Mouth, Daily, start taking from 11/28/21, # 30 capsule, 0 Refills, Maintenance, 11/28/21 9:00:00 EDT, [facility], Partial fill upon patient request if the prescription is for a schedule II opioid drug., 187, cm, 10/0... Start Date: 11/28/21 Status: Ordered furosemide 40 mg oral tablet 1, tablet, By Mouth, Daily, PRN, LEG SWELLING., # 30 tablet, Refills 3, Maintenance, NEEDED, 02/16/22 7:39:00 EST, Route to Pharmacy Electronically, [id number], 187, cm, 01/26/22 11:24:00 EST, Height, 91, kg, 11/20/21 17:55:00 EDT, Dry Weight Start Date: 02/16/22 Status: Ordered gabapentin 300 mg oral capsule 600 mg, 2, capsule, By Mouth, 2 times a day, # 120 capsule, Refills 5, Tot. Refills 5, Maintenance,02/10/22 15:57:00 EST, [id number] fill upon patient request if the prescription is for a schedule II... Start Date: 02/10/22 Status: Ordered Glucosamine Chondroitin 1 tablet, By Mouth, Daily, 0 Refills, Maintenance, 03/01/19 8:33:00 EST Start Date: 03/01/19 Status: Ordered latanoprost 0.005% ophthalmic solution 1 drops, Eye, Right, Daily at bedtime, 0 Refills, Maintenance, 01/01/18 18:46:39 EST Start Date: 01/01/18 Status: Ordered Multivitamin 1 tab, By Mouth, Daily, 0 Refills, Maintenance, 01/01/18 20:23:10 EST Start Date: 01/01/18 Status: Ordered nitroglycerin 0.4 mg sublingual tablet 1 tablet = 0.4 mg, Sublingual, Every 5 minutes, PRN for chest pain, not to exceed 3 doses/15 min--if pain persists, seek medical attention, # 100 tablet, 1 Refills, Maintenance, 05/29/21 14:41:00 EDT, Tablet, [facility]/pharmacy #[id number], 186, cm, 05/29/21 14:1... Start Date: 05/29/21 Status: Ordered oxyCODONE 5 mg oral tablet 7.5 mg, 1.5, tablet, By Mouth, 3 times a day, Refills 0, Tot. Refills 0 Start Date: 11/19/21 Status: Ordered Potassium Chloride (Eqv-K-Tab) 20 mEq oral tablet, extended release See Instructions, PRN with diuretic, 2 tablet By Mouth Daily 30 days while taking furosemide (Lasix), # 60 capsule, 3 Refills, Maintenance, 02/05/22 15:19:00 EST, [facility]/pharmacy #[id number], 187, cm, 01/26/22 11:24:00 EST, Height, 91, kg, 11/20/21 17:55:00 ED... Start Date: 02/05/22 Status: Ordered rocío stockings 15 to 20 rocío stockings 15 to 20, See Instructions, # 1 each, Refills 0, Tot. Refills 0, Maintenance, rocío stockings 15-20 mmHg, 11/24/21 11:14:00 EDT, Supply, 187, cm, 11/24/21 7:18:00 EDT, Height, 91, kg, 11/20/21 17:55:00 EDT, Dry Weight Start Date: 11/24/21 Status: Ordered Testosterone Cypionate 200 mg/mL intramuscular solution 40 MG (0.2 ML) SUBCUTANEOUSLY EVERY WEEK FOR 4 WEEKS Start Date: 11/19/21 Status: Ordered thiamine 100 mg oral tablet 100 mg, 1, tablet, By Mouth, 2 times a day, # 60 tablet, Refills 0, Tot. Refills 0, Maintenance, 11/24/21 11:13:00 EDT, Route to Pharmacy Electronically, [facility], Partial fill upon patient [...] 1 tablet = 500 mg, By Mouth, 2 times a day, 0 Refills, Maintenance, 01/01/18 20:21:31 EST Start [...] Active Hypertension Confirmed Active Hypokalemia Confirmed Active 1Problem added by Discern Expert Social History Social History Type Response Smoking Status Never smoker; Tobacc o user in household: No entered on: 09/03/14 Sex Patient Care team information Care Team Personnel Name: Elva Briseno RN Position: S RN Member Role: Primary Care Nurse Name: Christinao Hernandez RN Position: S RN Member Role: Primary Care Nurse Name: Nova Soto RN Position: [facility] ED RN W/OE and Tasks Member Role: Primary Care Nurse Name: Larissa Griggs MD Position: [facility] Physician (General Medicine) Member Role: PCP Address: Address: [address] [place] [address] [place] [address]- Name: Zara Gongora Position: [facility] Outreach Member Role: Lifetime Consulting Physician Name: China Gomez Position: [facility] RN Member Role: Primary Care Nurse Name: Arpit Davis RN Position: [facility] ED RN W/OE and Tasks Member Role: Primary Care Nurse Name: Gala Schwartz RN Position: [facility] RN Member Role: Primary Care Nurse Name: Marc Sidhu DO Position: [facility] Renal MD Member Role: Lifetime Consulting Physician Address: Address: [address] [place] [address] [address] [facility] [place] [address]- Name: Jannette Boyer RN Position: [facility] RN Member Role: Primary Care Nurse Name: Quang MURRELL, Sarina Gandara Position: [facility] Onco RN Member Role: Primary Care Nurse Care Team Related Persons Name: TRINIDAD CRUMP Name: ELICIA BRONSON Address: home [address] [place] [address]
--- OUTSIDE RECORDS SUMMARY | 2024-01-13 12:02 | XMS_ITS | Continuity of Care Document ---
Author Organization [facility] Address [address], [address] d Floor, [address] [place] [address]- Care Team Providers Care Cooky Machine Operator Name Role Phone Eve Warren MD, Larissa Medina Primary Care Physic sophia Encounter [facility] [place] Date(s[place] 04/19/23 - 05/19/23 [facility] [address], [address] [place] [address]- Attending Physician: Cristiano Prado Admitting Physician: AdmCristiano buenrostro Referring Physician: AdmtrCristiano Allergies, Adverse Reactions, Alerts No Known Allergies [...] Refills, Maintenance, 11/22/22 7:50:00 EDT, [facility], 178, cm, 10/15/22 8:07:00 EDT, Height, 99.3, kg, 08/22/22 14:01:00 EDT, Dry Weight Start Date: 11/22/22 Status: Ordered carvedilol 12.5 mg oral tablet 1, tablet, By Mouth, 2 times a day, # 180 tablet, Refills 3, Maintenance, 02/10/23 15:08:00 EST, Route to Pharmacy Electronically, [facility], 178, cm, 02/03/23 11:28:00 EST, Height, 99.3, [...] 11/10/22 14:37:00 EDT, Route to Pharmacy Electronically, [facility], 178, cm, 10/15/22 8:07:00 EDT, Height, 99.3, kg, 08/22/22 14:01:00 EDT, Dry Weight Start Date: 11/10/22 Status: Ordered dorzolamide-timolol 2.23%-0.68% ophthalmic solution 1 drops, Eye, Right, 2 times a day Start Date: 11/19/21 Status: Ordered duloxetine 30 mg oral enteric coated capsule 1 capsule = 30 mg, By Mouth, Daily, start taking from 11/28/21, # 30 capsule, 0 Refills, Maintenance, 11/28/21 9:00:00 EDT, [facility], Partial fill upon patient request if the prescription is for a schedule II opioid drug., 187, cm, 0... Start Date: 11/28/21 Status: Ordered furosemide 40 mg oral tablet See Instructions, 1 TABLET BY MOUTH EVERY TUESDAY, TUESDAY AND TUESDAY, # 39 tablet, Refills 1, Maintenance, 01/24/23 7:47:00 EST, Instructions Replace Required Details, Route to Pharmacy Electronically, [facility], 178, cm, 10/15/22 8:07:00 EDT,... Start Date: 01/24/23 Status: Ordered gabapentin 300 mg oral capsule 900 mg, 3, capsule, By Mouth, 2 times a day, # 180 capsule, Refills 5, Tot. Refills 5, Maintenance,10/15/22 8:33:00 EDT, Route to Pharmacy Electronically, [facility]/pharmacy #[id number], 178, cm, 10/15/22 8:07:00 EDT, Height, 99.3, kg, 08/22/22 14:01:00 EDT, Dry... Start Date: 10/15/22 Stop Date: 04/13/23 Status: Ordered gabapentin 300 mg oral capsule 900 mg, 3, capsule, By Mouth, 2 times a day, # 180 capsule, Refills 5, Tot. Refills 5, Maintenance,05/19/23 12:29:00 EDT, Route to Pharmacy Electronically, [facility] #[id number], 186, cm, 04/20/23 21:24:00 EST, Height, 95.5, kg, 04/20/23 21:24:... Start Date: 05/19/23 Stop Date: 11/15/23 Status: Ordered latanoprost 0.005% ophthalmic solution 1 drops, Eye, Right, Daily at bedtime, 0 Refills, Maintenance, 01/01/18 18:46:39 EST Start Date: 01/01/18 Status: Ordered lidocaine 5% topical film 2 patch, Topically, Daily, remove patches after 12 hours, # 30 patch, 0 Refills, Maintenance, 04/20/23 19:59:00 EST, Film, [facility]/pharmacy #0750, Partial fill upon patient request if the prescription isfor a schedule II opioid drug., 2 patch Topically D... Start Date: 04/20/23 Status: Ordered nitroglycerin 0.4 mg sublingual tablet 1 tablet = 0.4 mg, Sublingual, Every 5 minutes, PRN for chest pain, not to exceed 3 doses/15 min--if pain persists, seek medical attention, # 100 tablet, 1 Refills, Maintenance, 05/29/21 14:41:00 EDT, Tablet, [facility]/pharmacy #[id number], 186, cm, 05/29/21 14:1... Start Date: 05/29/21 Status: Ordered oxyCODONE 5 mg oral capsule 1 capsule = 5 mg, By Mouth, Every 6 hours, PRN for pain, # 28 capsule, 0 Refills, Maintenance, 04/20/23 19:53:00 EST, Capsule, [facility]/pharmacy #0750, Partial fill upon patient request if the prescription is for a schedule II opioid drug., 186, cm, ... Start Date: 04/20/23 Status: Ordered pantoprazole 40 mg oral delayed release tablet = 40 mg, By Mouth, Daily, 0 Refills, Maintenance, 03/17/23 8:20:00 EST, EC Tablet Start Date: 03/17/23 Status: Ordered Potassium Chloride (Eqv-K-Tab) 20 mEq oral tablet, extended release 2 tablet = 40 mEq, By Mouth, Every Tuesday, Tuesday and Tuesday, # 26 tablet, 0 Refills, Maintenance, 05/18/23 15:11:00 EDT, ER Tablet, [facility]/pharmacy #[id number], Partial fill upon patient request if the prescription is for a schedule II opioid drug., 186, c... Start Date: 05/18/23 Status: Ordered tadalafil 5 mg oral tablet [...] 11/24/21 11:13:00 EDT, Route to Pharmacy Electronically, [facility], Partial fill upon patient request [...] Most recent to oldest [Reference Range]: 1 Height 186 cm (12/12/18 4:36 PM) Weight 97.0 kg (12/12/18 4:36 PM) Social History Social History Type Response Smoking Status Never smoker; Tobacc o user in household: No entered on: 09/03/14 Sex Patient Care team information Care Team Personnel Name: Christiano Hernandez RN Position: [facility] RN Member Role: Primary Care Nurse Name: Nova Soto RN Position: [facility] ED RN W/OE and Tasks Member Role: Primary Care Nurse Name: Larissa Griggs MD Position: [facility] Physician - Endocrinology Member Role: PCP Address: Address: [address] [place] [address] [place] [address]- [place] Name: Zara Gongora Position: S Outreach Member Role: Lifetime Consulting Physician Name: China Gomez Position: S RN Member Role: Primary Care Nurse Name: Arpit Davis RN Position: [facility] ED RN W/OE and Tasks Member Role: Primary Care Nurse Name: Gala Schwartz RN Position: [facility] RN Member Role: Primary Care Nurse Name: Marc Sidhu DO Position: [facility] Renal MD Member Role: Lifetime Consulting Physician Address: Address: [address] [place], [place] [address] [place] [place] [address]- Name: Lonnie Rosario RN Position: [facility] RN Member Role: Primary Care Nurse Name: Jason Anand RN Position: [facility] RN Member Role: Primary Care Nurse Name: Jannette Boyer RN Position: [facility] SN RN Member Role: Primary Care Nurse Name: Toby Shafer RN Position: [facility] RN Member Role: Primary Care Nurse Name: Lesa Oneill RN Position: [facility] RN Member Role: Primary Care Nurse Name: Sarina Del Rio RN Position: [facility] Onco RN Member Role: Primary Care Nurse Care Team Related Persons Name: ALISIA TRINIDAD Name: ELICIA BRONSON Address: [address] [place] [address]
--- OUTSIDE RECORDS SUMMARY | 2024-01-13 12:02 | XMS_ITS | Continuity of Care Document ---
Author Organization [facility] Address [address] [place] [address]- Care Team Providers Care Patient Service Coordinator Name Role Phone Larissa Griggs MD Primary Care Physic sophia Encounter [facility] [place] Date(s): 04/20/23 - 04/20/[address] [address]- Encounter Diagnosis Right hip pain(Final) - 04/20/23 Discharge Disposition: A-D/C Home Attending Physician: Chantal Butler DO Admitting Physician: Chantal Butler DO Referring Physician: Not on Staff, Referring MD [...] Refills, Maintenance, 11/22/22 7:50:00 EDT, [facility], 178, cm, 10/15/22 8:07:00 EDT, Height, 99.3, kg, 08/22/22 14:01:00 EDT, Dry Weight Start Date: 11/22/22 Status: Ordered carvedilol 12.5 mg oral tablet 1, tablet, By Mouth, 2 times a day, # 180 tablet, Refills 3, Maintenance, 02/10/23 15:08:00 EST, Route to Pharmacy Electronically, [facility], 178, cm, 02/03/23 11:28:00 EST, Height, 99.3, [...] 11/10/22 14:37:00 EDT, Route to Pharmacy Electronically, [facility], 178, cm, 10/15/22 8:07:00 EDT, Height, 99.3, kg, 08/22/22 14:01:00 EDT, Dry Weight Start Date: 11/10/22 Status: Ordered dorzolamide-timolol 2.23%-0.68% ophthalmic solution 1 drops, Eye, Right, 2 times a day Start Date: 11/19/21 Status: Ordered duloxetine 30 mg oral enteric coated capsule 1 capsule = 30 mg, By Mouth, Daily, start taking from 11/28/21, # 30 capsule, 0 Refills, Maintenance, 11/28/21 9:00:00 EDT, [facility], Partial fill upon patient request if the prescription is for a schedule II opioid drug., 187, cm, 10/0... Start Date: 11/28/21 Status: Ordered furosemide 40 mg oral tablet See Instructions, 1 TABLET BY MOUTH EVERY TUESDAY, TUESDAY AND TUESDAY, # 39 tablet, Refills 1, Maintenance, 01/24/23 7:47:00 EST, Instructions Replace Required Details, Route to Pharmacy Electronically, [facility] 49589, 178, cm, 10/15/22 8:07:00 EDT,... Start Date: 01/24/23 Status: Ordered gabapentin 300 mg oral capsule 900 mg, 3, capsule, By Mouth, 2 times a day, # 180 capsule, Refills 5, Tot. Refills 5, Maintenance,10/15/22 8:33:00 EDT, Route to Pharmacy Electronically, [facility]/pharmacy #[id number], 178, cm, 10/15/22 8:07:00 [...] 0 Refills, Maintenance, 04/20/23 19:59:00 EST, Film, [facility]/pharmacy #0750, Partial fill upon patient request if the prescription isfor a schedule II opioid drug., 2 patch Topically D... Start Date: 04/20/23 Status: Ordered MorPHINE Inj 4 mg, Injection, Intramuscular, Once, Routine, 04/20/23 21:00:00 EST, Stop date 04/20/23 21:00:00 EST Start Date: 04/20/23 Stop Date: 04/20/23 Status: Completed nitroglycerin 0.4 mg sublingual tablet 1 tablet = 0.4 mg, Sublingual, Every 5 minutes, PRN for chest pain, not to exceed 3 doses/15 min--if pain persists, seek medical attention, # 100 tablet, 1 Refills, Maintenance, 05/29/21 14:41:00 EDT, Tablet, [facility]/pharmacy #1070, 186, cm, 05/29/21 14:1... Start Date: 05/29/21 Status: Ordered oxyCODONE 5 mg oral capsule 1 capsule = 5 mg, By Mouth, Every 6 hours, PRN for pain, # 28 capsule, 0 Refills, Maintenance, 04/20/23 19:53:00 EST, Capsule, [facility]/pharmacy #0750, Partial fill upon patient request if [...] opioid drug. Start Date: 04/25/22 Status: Ordered tadalafil 5 mg oral tablet TAKE ONE TABLET BY MOUTH EVERY DAY FOR BLADDED URGE Start Date: 02/11/23 Status: Ordered orcío stockings 15 to 20 rocío stockings 15 [...] 11/24/21 11:13:00 EDT, Route to Pharmacy Electronically, [facility], Partial fill upon patient [...] Range]: 1 2 3 Height 186 cm (04/20/23 9:24 PM) 186 cm (04/20/23 4:23 PM) 186 cm (04/20/23 4:07 PM) Weight 95.5 kg (04/20/23 9:24 PM) 95.5 kg (04/20/23 4:23 PM) 95.5 kg (04/20/23 4:07 PM) Oxygen Saturation [94-100 %] 97 % (04/20/23 4:07 PM) 95 % (04/20/23 4:03 PM) Pulse Rate [55-90 bpm] 104 bpm *H* (04/20/23 4:07 PM) 69 bpm (04/20/23 4:03 PM) Body Mass Index [18.5-24.99 kg/m2] 27.6 kg/m2 *H* (04/20/23 4:07 PM) Blood Pressure [90-138/55-84 mm Hg] 181/101mm Hg *H* (04/20/23 4:07 PM) Respiratory Rate [16-30 br/min] 17 br/min (04/20/23 8:52 PM) 18 br/min (04/20/23 4:07 PM) Temperature [96.8-100.4 DegF] 97.1 DegF (04/20/23 4:07 PM) Mode of Delivery (Oxygen) Room air (04/20/23 4:07 PM) Room air (04/20/23 4:03 PM) Blood pressure sites Arm, left (04/20/23 4:07 PM) Temperature Route Oral (04/20/23 4:07 PM) Dry Weight 95.5 kg (04/20/23 9:24 PM) 95.5 kg (04/20/23 4:23 PM) 95.5 kg (04/20/23 4:07 PM) Weight Obtained Via Patient/family state d (04/20/23 4:07 PM) Dry Weight Obtained Via Patient/family s tated (04/20/23 4:07 PM) Social History Social History Type Response Smoking Status Never smoker; Tobacc o user in household: No entered on: 09/03/14 Sex Patient Care team information Care Team Personnel Name: Christiano Hernandez RN Position: [facility] RN Member Role: Primary Care Nurse Name: Nova Soto RN Position: [facility] ED RN W/OE and Tasks Member Role: Primary Care Nurse Name: Larissa Griggs MD Position: [facility] Physician - Endocrinology Member Role: PCP Address: Address: [address] [place] [address] [facility] [address] Name: Zara Gongora Position: S Outreach Member Role: Lifetime Consulting Physician Name: China Gomez Position: [facility] RN Member Role: Primary Care Nurse Name: Arpit Davis RN Position: [facility] ED RN W/OE and Tasks Member Role: Primary Care Nurse Name: Gala Schwartz RN Position: S RN Member Role: Primary Care Nurse Name: Marc Sidhu DO Position: [facility] Renal MD Member Role: Lifetime Consulting Physician Address: Address: [address] [facility] [address] [facility] [place] [address]- [place] Name: Abraham RN, Lonnie Perry Position: [facility] RN Member Role: Primary Care Nurse Name: Jason Anand RN Position: [facility] RN Member Role: Primary Care Nurse Name: Jannette Boyer RN Position: [facility] SN RN Member Role: Primary Care Nurse Name: Toby Shafer RN Position: [facility] RN Member Role: Primary Care Nurse Name: Lesa Oneill RN Position: [facility] RN Member Role: Primary Care Nurse Name: Quang MURRELL, Sarina Gandara Position: [facility] Onco RN Member Role: Primary Care Nurse Name: Eev Warren MD, Larissa Medina Position: [facility] Physician - Endocrinology Med Service: Endocrinology Member Role: Primary Care Physician Address: Address: [address] [facility] [place] [address]- [place] Care Team Related Persons Name: TRINIDAD CRUMP Name: ELICIA BRONSON Address: home [address] [place] [address]
--- OUTSIDE RECORDS SUMMARY | 2024-01-13 12:02 | XMS_ITS | Continuity of Care Document ---
Author Organization [facility] ter Address [address] [place] [address]- Care Team Providers Care Safety Clothing And Equipment Developer Name Role Phone Eve Warren MD, Larissa Medina Primary Care Physic sophia Encounter 10/15/23 - 10/16/[address] [address] Attending Physician: Not on Staff, Attending MD Referring Physician: Not on Staff, Referring [...] Daily, # 90 tablet, 3 Refills, Maintenance, 06/30/23 10:54:00 EDT, [facility] #[id number], 186, cm, 06/21/23 15:46:00 EDT, Height, 102, kg, 06/21/23 15:46:00 EDT, Dry Weight Start Date: 06/30/23 Status: Ordered carvedilol 12.5 mg oral tablet 1, tablet, By Mouth, 2 times a day, # 180 tablet, Refills 3, Maintenance, 02/10/23 15:08:00 EST, Route to Pharmacy Electronically, [facility], 178, cm, 02/03/23 11:28:00 EST, Height, 99.3, [...] bedtime, # 90 tablet, Refills 1, Maintenance, 09/05/23 15:11:00 EDT, Route to Pharmacy Electronically, [facility] 495[facility], 185, cm, 08/09/23 6:22:00 EDT, Height, 97.8, kg, 08/08/23 14:44:00 EDT, Dry Weight Start Date: 09/05/23 Status: Ordered dorzolamide-timolol 2.23%-0.68% ophthalmic solution 1 drops, Eye, Right, 2 times a day Start Date: 11/19/21 Status: Ordered duloxetine 30 mg oral enteric coated capsule 1 capsule = 30 mg, By Mouth, Daily, start taking from 11/28/21, # 30 capsule, 0 Refills, Maintenance, 11/28/21 9:00:00 EDT, [facility], Partial fill upon patient request if the prescription is for a schedule II opioid drug., 187, cm, 10/0... Start Date: 11/28/21 Status: Ordered Eliquis 2.5 mg oral tablet 1 tablet = 2.5 mg, By Mouth, 2 times a day, # 60 tablet, 0 Refills, Maintenance, 08/09/23 8:46:00 EDT, Tablet, [facility], Partial fill upon patient request if the prescription is for aschedule II opioid drug., 185, cm, 08/09/23 6:22:00... Start Date: 08/09/23 Stop Date: 09/08/23 Status: Ordered furosemide 40 mg oral tablet See Instructions, 1 TABLET BY MOUTH EVERY TUESDAY, TUESDAY AND TUESDAY, # 39 tablet, Refills 1, Maintenance, 01/24/23 7:47:00 EST, Instructions Replace Required Details, Route to Pharmacy Electronically, [facility] 32909, 178, cm, 10/15/22 8:07:00 EDT,... Start Date: 01/24/23 Status: Ordered gabapentin 300 mg oral capsule 900 mg, 3, capsule, By Mouth, 2 times a day, # 180 capsule, Refills 5, Tot. Refills 5, Maintenance,10/15/22 8:33:00 EDT, Route to Pharmacy Electronically, [facility]/pharmacy #[id number], 178, cm, 10/15/22 8:07:00 EDT, Height, 99.3, kg, 08/22/22 14:01:00 EDT, Dry... Start Date: 10/15/22 Stop Date: 04/13/23 Status: Ordered latanoprost 0.005% ophthalmic solution 1 drops, Eye, Right, Daily at bedtime, 0 Refills, Maintenance, 01/01/18 18:46:39 EST Start Date: 01/01/18 Status: Ordered nitroglycerin 0.4 mg sublingual tablet 1 tablet = 0.4 mg, Sublingual, Every 5 minutes, PRN for chest pain, not to exceed 3 doses/15 min--if pain persists, seek medical attention, # 100 tablet, 1 Refills, Maintenance, 05/29/21 14:41:00 EDT, Tablet, [facility]/pharmacy #[id number], 186, cm, 05/29/21 14:1... Start Date: 05/29/21 Status: Ordered pantoprazole 40 mg oral delayed release tablet 1 tablet = 40 mg, By Mouth, Daily, # 30 tablet, 0 Refills, Maintenance, 08/08/23 8:48:00 EDT, [facility] Tablet Start Date: 08/08/23 Status: Ordered Potassium Chloride (Eqv-K-Tab) 20 mEq oral tablet, extended release See Instructions, 2 TABLET BY MOUTH EVERY TUESDAY, TUESDAY AND TUESDAY, # 26 tablet, 11 Refills, Maintenance, 09/21/23 16:08:00 EDT, [facility]/pharmacy #[id number], 185, cm, 08/09/23 6:22:00 EDT, Height, 97.8, kg, 08/08/23 14:44:00 EDT, Dry Weight Start Date: 09/21/23 Status: Ordered tadalafil 5 mg oral tablet [...] 11/24/21 11:13:00 EDT, Route to Pharmacy Electronically, [facility], Partial fill upon patient request if [...] Team Personnel Name: Christiano Hernandez RN Position: [facility] RN Member Role: Primary Care Nurse Name: Nova Soto RN Position: [facility] ED RN W/OE and Tasks Member Role: Primary Care Nurse Name: Larissa Griggs MD Position: [facility] Physician - Endocrinology Member Role: PCP Address: Address: [address] [place] [address] [place] [address]- Name: Zara Gongora Position: [facility] Outreach Member Role: Lifetime Consulting Physician Name: China Gomez Position: [facility] RN Member Role: Primary Care Nurse Name: Arpit Davis RN Position: [facility] ED RN W/OE and Tasks Member Role: Primary Care Nurse Name: Gala Schwartz RN Position: [facility] RN Member Role: Primary Care Nurse Name: Marc Sidhu DO Position: [facility] Renal MD Member Role: Lifetime Consulting Physician Address: Address: [address] [place] [address] [address] [facility] [place] [address]- Name: Meseret Rosario RN Position: [facility] RN Member Role: Primary Care Nurse Name: Lonnie Rosario RN Position: [facility] RN Member Role: Primary Care Nurse Name: Kirby Zavala RN Position: [facility] RN Member Role: Primary Care Nurse Name: Jason Anand RN Position: [facility] RN Member Role: Primary Care Nurse Name: Jannette Boyer RN Position: [facility] AMB Nurse Member Role: Primary Care Nurse Name: Toby Shafer RN Position: [facility] RN Member Role: Primary Care Nurse Name: Lesa Oneill RN Position: [facility] RN Member Role: Primary Care Nurse Name: Sarina Del Rio RN Position: [facility] Onco RN Member Role: Primary Care Nurse Care Team Related Persons Name: TRINIDAD CRUMP Name: ELICIA BRONSON Address: home [address] [id number]
--- OUTSIDE RECORDS SUMMARY | 2024-01-13 12:02 | XMS_ITS | Continuity of Care Document ---
Author Organization [facility] Address [address] [place] [address]- Care Team Providers Care Regulatory Coordinator Name Role Phone Eve Warren MD, Larissa Medina Primary Care Physic sophia Encounter [facility] [place] Date(s): 12/28/21 - 01/27/[address] [address]- Attending Physician: Cristiano Prado Admitting Physician: Cristiano Prado Referring Physician: AdmtrCristiano Allergies, Adverse Reactions, Alerts [...] 3 Refills, Maintenance, 12/17/21 15:20:00 EDT, Tablet, [id number], Partial fill upon patient request if [...] tablet, 3 Refills, Maintenance, 11/03/21 16:31:00 EDT, [facility]ORE 81061, 186, cm, 10/23/21 14:57:00 EDT, Height, 88.1, [...] 12/17/21 15:20:00 EDT, Route to Pharmacy Electronically, [facility]/pharmacy #[id number], Partial fill upon patient request [...] capsule, 0 Refills, Maintenance, 11/28/21 9:00:00 EDT, [facility], Partial fill upon patient request if the prescription is for a schedule II opioid drug., 187, cm, 10/0... Start Date: 11/28/21 Status: Ordered furosemide 40 mg oral tablet 40 mg, 1, tablet, By Mouth, Daily, PRN, # 30 tablet, Refills 3, Tot. Refills 3, Maintenance, leg swelling, 01/22/22 9:53:00 EST, Route to Pharmacy Electronically, [facility]/pharmacy #[id number], Partial fill upon patient request if the prescription is for a sched... Start Date: 01/22/22 Stop Date: 05/22/22 Status: Ordered gabapentin 300 mg oral capsule 600 mg, 2, capsule, By Mouth, 2 times a day, Refills 0, Maintenance, 11/23/21 12:48:00 EDT, Partialfill upon patient request if the prescription is for a schedule II opioid drug. Start Date: 11/23/21 Status: Ordered Glucosamine Chondroitin 1 tablet, By [...] 1 Refills, Maintenance, 05/29/21 14:41:00 EDT, Tablet, [facility]/pharmacy #[id number], 186, cm, 05/29/21 14:1... Start [...] (Lasix), # 60 capsule, 3 Refills, Maintenance, 01/22/22 9:55:00 EST, [facility]/pharmacy #[id number], Partial fill uponpatient request if the prescription is for a schedu... Start Date: 01/22/22 Status: Ordered rocío stockings 15 to 20 [...] 11/24/21 11:13:00 EDT, Route to Pharmacy Electronically, [facility], Partial fill upon patient [...] RN Member Role: Primary Care Nurse Name: Christiano Hernandez RN Position: S RN Member Role: Primary Care Nurse Name: Nova Soto RN Position: [facility] ED RN W/OE and Tasks Member Role: Primary Care Nurse Name: Eve Warren MD, Larissa Medina Position: [facility] Physician (General Medicine) Member Role: PCP Address: Address: [address] [place] [address] [place] [address]- Name: Zara Gongora Position: [facility] Outreach Member Role: Lifetime Consulting Physician Name: China Gomez Position: [facility] RN Member Role: Primary Care Nurse Name: Arpit Davis RN Position: [facility] ED RN W/OE and Tasks Member Role: Primary Care Nurse Name: Gala Schwartz RN Position: [facility] RN Member Role: Primary Care Nurse Name: Marc Sidhu DO Position: [facility] Renal MD Member Role: Lifetime Consulting Physician Address: Address: [address] [place], [place] [address] [place] [address]- Name: Jannette Boyer RN Position: [facility] RN Member Role: Primary Care Nurse Name: Sarina Del Rio RN Position: [facility] Onco RN Member Role: Primary Care Nurse Care Team Related Persons Name: TRINIDAD CRUMP Name: ELICIA BRONSON Address: home [address] [place] [address]
--- OUTSIDE RECORDS SUMMARY | 2024-01-13 12:02 | XMS_ITS | Continuity of Care Document ---
Author Organization [facility] Address [address] [place] [address]- Care Team Providers Care Quill Machine Operator Name Role Phone vEe Warren MD, Larissa Medina Primary Care Physic sophia [place] [facility] [place] - 06/17/[address] [address]- Attending Physician: Gertrude SOUZA, Jesús Villareal Allergies, Adverse Reactions, Alerts No Known Allergies Immunizations Given and Recorded Vaccine Date Status Refusal Reason influenza virus vaccine, inactivated 11/27/14 Give n pneumococcal 23-valent vaccine 1 12/15/10 Given 1Early/Late Reason: Other: Medications acetaminophen-oxycodone 325 mg-7.5 mg oral tablet 1 [...] tablet, 3 Refills, Maintenance, 11/03/21 16:31:00 EDT, [facility], 186, cm, 10/23/21 14:57:00 EDT, Height, 88.1, kg, 07/01/21 14:48:00 EDT, Dry Weight Start Date: 11/03/21 Status: Ordered Chondroitin-Glucosamine 1 tablet, By Mouth, 2 times a day, Maintenance, 04/25/22 13:09:00 EST, Partial fill upon patient request if the prescription is for a schedule II opioid drug. Start Date: 04/25/22 Status: Ordered Coreg 12.5 mg oral tablet 12.5 mg, 1, tablet, By Mouth, 2 times a day, # 180 tablet, Refills 3, Tot. Refills 3, Maintenance, 12/17/21 15:20:00 EDT, Route to Pharmacy Electronically, [facility]/pharmacy #[id number], Partial fill upon patient request if [...] capsule, 0 Refills, Maintenance, 11/28/21 9:00:00 EDT, [facility], Partial fill upon patient request if the prescription is for a schedule II opioid drug., 187, cm, 10/0... Start Date: 11/28/21 Status: Ordered furosemide 40 mg oral tablet 40 mg, 1, tablet, By Mouth, Every Tuesday, Tuesday and Tuesday, Maintenance, 04/25/22 13:04:00 EST,Partial fill upon patient request if the prescription is for a schedule II opioid drug. Start Date: 04/25/22 Status: Ordered gabapentin 300 mg oral capsule 600 mg, 2, capsule, By Mouth, 2 times a day, # 120 capsule, Refills 5, Tot. Refills 5, Maintenance,02/10/22 15:57:00 EST, [id number] Partial fill upon patient request if the prescription is for a schedule II... Start Date: 02/10/22 Status: Ordered latanoprost 0.005% ophthalmic solution 1 [...] 1 Refills, Maintenance, 05/29/21 14:41:00 EDT, [id number], cm, 05/29/21 14:1... Start Date: 05/29/21 Status: Ordered Potassium Chloride (Eqv-K-Tab) 20 mEq oral tablet, extended release 2 tablet = 40 mEq, By Mouth, Every Tuesday, Tuesday and Tuesday, Maintenance, 04/25/22 13:05:00 EST, Partial fill upon patient request if the prescription is for a schedule II opioid drug. Start Date: 04/25/22 Status: Ordered rocío stockings 15 to 20 [...] 11/24/21 11:13:00 EDT, Route to Pharmacy Electronically, [facility], Partial fill upon patient request [...] MD Position: [facility] Physician (General Medicine) Member Role: PCP Address: Address: [address] [place] [address] [facility] [address] Name: Zara Gongora Position: [facility] Outreach Member Role: Lifetime Consulting Physician Name: China Gomez Position: [facility] RN Member Role: Primary Care Nurse Name: Arpit Davis RN Position: [facility] ED RN W/OE and Tasks Member Role: Primary Care Nurse Name: Gala Schwartz RN Position: [facility] RN Member Role: Primary Care Nurse Name: Marc Sidhu DO Position: [facility] Renal MD Member Role: Lifetime Consulting Physician Address: Address: [address] [place] [address] [address] [facility] [place], [place] [address] Name: Abraham MURRELL, Lonnie Perry Position: [facility] RN Member Role: Primary Care Nurse Name: Jason Anand RN Position: [facility] RN Member Role: Primary Care Nurse Name: Sarina Del Rio RN Position: [facility] Onco RN Member Role: Primary Care Nurse Name: Emmie Vera Position: [facility] RN Member Role: Primary Care Nurse Care Team Related Persons Name: TRINIDAD CRUMP Name: ELICIA BRONSON Address: home [address] [place] [address]
--- OUTSIDE RECORDS SUMMARY | 2024-01-13 12:02 | XMS_ITS | Continuity of Care Document ---
Author Organization [facility] Address [address] [place] [address]- Care Team Providers Care High School Principal Name Role Phone Eve Warren MD, Larissa Medina Primary Care Physic sophia Encounter [facility] Date(s): 09/03/20 - 10/03/20 [facility] [address] [place] [id number]- Allergies, Adverse Reactions, Alerts Substance Reaction Severity Status NKA Active Immunizations Given and Recorded Vaccine Date Status Refusal Reason influenza virus vaccine, inactivated 11/27/14 Give n pneumococcal 23-valent vaccine 1 12/15/10 Given 1Early/Late Reason: Other: Medications allopurinol 100 mg oral tablet 100 mg, 1, tablet, By Mouth, 3 times a day, Refills 0, Maintenance, 01/01/18 18:43:12 EST Start Date: 01/01/18 Status: Ordered aspirin 500 mg oral tablet 1 tablet = 500 mg, By Mouth, 2 times a day before breakfast and dinne, # 60 tablet, 11 Refills, Maintenance, 05/02/20 17:20:00 EST, Partial fill upon patient request if the prescription is for a schedule II opioid drug. Start Date: 05/02/20 Stop Date: 06/01/20 Status: Ordered atorvastatin 80 mg oral tablet 1 tablet = 80 mg, By Mouth, Daily, # 90 tablet, 3 Refills, Maintenance, 02/12/20 11:35:00 EST, Tablet, [facility]/pharmacy #[id number], 186, cm, 10/19/19 15:51:00 EDT, Height, 97, kg, 06/16/18 9:43:00 EDT, Dry Weight Start Date: 02/12/20 Stop Date: 02/06/21 Status: Ordered colchicine 0.6 mg oral tablet 0.6 mg, 1, tablet, By Mouth, Daily, Refills 0, Maintenance, 01/01/18 18:45:03 EST Start Date: 01/01/18 Status: Ordered Coreg 12.5 mg oral tablet 12.5 mg, 1, tablet, By Mouth, 2 times a day, # 180 tablet, Refills 3, Tot. Refills 3, Maintenance, 05/02/20 13:32:00 EST, Route to Pharmacy Electronically, [facility]/pharmacy #[id number], Partial fill upon patient request if the prescription is for a schedule II... Start Date: 05/02/20 Stop Date: 04/27/21 Status: Ordered Ferrous Sulfate ER See Instructions, takes 65 mg (2 tabs) daily, Refills 0, Maintenance, 01/01/18 20:20:23 EST, Instructions Replace Required Details Start Date: 01/01/18 Status: Ordered gabapentin 300 mg oral capsule 1,200 mg, 4, capsule, By Mouth, 2 times a day, # 240 capsule, Refills 4, Tot. Refills 4, Maintenance, 02/07/20 14:17:00 EST, Route to Pharmacy Electronically, [facility]/pharmacy #[id number], Partial fill upon patient request if the prescription is for a schedule... Start Date: 02/07/20 Stop Date: 07/06/20 Status: Ordered gabapentin 300 mg oral capsule 2 capsule = 600 mg, By Mouth, Daily at bedtime, 0 Refills, Maintenance, 11/26/14 5:22:25 EDT, Capsule Start Date: 11/26/14 Status: Ordered Glucosamine Chondroitin By Mouth, Daily, 0 Refills, Maintenance, 03/01/19 8:33:00 EST Start Date: 03/01/19 Status: Ordered latanoprost 0.005% ophthalmic solution 1 drops, Eye, Right, Daily before dinner, 0 Refills, Maintenance, 01/01/18 18:46:39 EST Start Date: 01/01/18 Status: Ordered lisinopril 5 mg oral tablet 5 mg, 1, tablet, By Mouth, Daily, # 30 tablet, Refills 11, Tot. Refills 11, Maintenance, 01/15/20 14:41:00 EST, Route to Pharmacy Electronically, [facility]/pharmacy #[id number], 186, cm, 10/19/19 15:51:00 EDT, Height, 97, kg, 06/16/18 9:43:00 EDT, Dry Weight Start Date: 01/15/20 Stop Date: 01/09/21 Status: Ordered loperamide 2 mg oral tablet, chewable 1 tablet = 2 mg, Chew, 2 times a day, PRN for loose stool, # 20 tablet, 0 Refills, Maintenance, 08/16/19 18:31:00 EDT, Chew Tablet, [facility]/pharmacy #[id number], 1 tablet Chew 2 times a day,PRN:for loose stool, 186, cm, 03/02/19 8:12:00 EST, Height, 97, kg, 04/... Start Date: 08/16/19 Status: Ordered Multivitamin 1 tab, By Mouth, Daily, 0 Refills, Maintenance, 01/01/18 20:23:10 EST Start Date: 01/01/18 Status: Ordered nitroglycerin 0.4 mg sublingual tablet 1 tablet = 0.4 mg, Sublingual, Every 5 minutes, PRN for chest pain, not to exceed 3 doses/15 min--if pain persists, seek medical attention, # 100 tablet, 1 Refills, Maintenance, 07/17/19 11:37:00 EDT, Tablet, [facility]/pharmacy #[id number], 186, cm, 03/02/19 8:12... Start Date: 07/17/19 Status: Ordered oxyCODONE 5 mg oral tablet TAKE ONE CAPSULE EVERY 8 HOURS NEEDED FOR PAIN*FILL 12/27/17* Start Date: 01/01/18 Status: Ordered spironolactone 50 mg oral tablet 0.5 tablet = 25 mg, By Mouth, Daily, # 30 tablet, 0 Refills, Maintenance, 02/03/18 15:08:51 EST, Tablet Start Date: 02/03/18 Stop Date: 06/01/20 Status: Ordered Testosterone Enanthate 200 mg/mL intramuscular solution INJECT 1 1/4 ML INTRAMUSCULARLY ONCE PER WEEK Start Date: 01/01/18 Status: Ordered Timolol 0.25% Ophth 1 drop, Eye, Right, 2 times a day, Refills 0, Maintenance, 01/01/18 20:11:52 EST Start Date: 01/01/18 Status: Ordered Tofranil 50 mg oral tablet 1 tablet = 50 mg, By Mouth, 2 times a day, 0 Refills, Maintenance, 02/03/15 9:04:10 EST Start Date: 02/03/15 Status: Ordered Vitamin C 500 mg oral tablet 1 tablet = 500 mg, By Mouth, 2 times a day, 0 Refills, Maintenance, 01/01/18 20:21:31 EST Start Date: 01/01/18 Status: Ordered Vitamin D3 1000 intl units oral capsule 1 capsule = 1,000 International_Units, By Mouth, Daily, # 75 capsule, 0 Refills, Maintenance, 02/03/18 14:16:59 EST, Capsule Start Date: 02/03/18 Status: Ordered Zofran 4 mg oral tablet 1 tablet = 4 mg, By Mouth, Every 8 hours, # 12 tablet, 0 Refills, Maintenance, 08/16/19 18:31:00 EDT, Tablet, [facility]/pharmacy #[id number], 186, cm, 03/02/19 8:12:00 EST, Height, 97, kg, 06/16/18 9:43:00 EDT, Dry Weight Start Date: 08/16/19 Status: Ordered Problem List Condition Effective Dates Status Health Status Inform ant Coronary artery disease(Confirmed) Active Hypertension(Confirmed) Active Hypokalemia(Confirmed) Active Social History Social History Type Response Smoking Status Never smoker; Tobacc o user in household: No entered on: 09/03/14 Sex
--- OUTSIDE RECORDS SUMMARY | 2024-01-13 12:02 | XMS_ITS | Continuity of Care Document ---
Author Organization [facility] Address [address] [place] [address]- Care Team Providers Care Linux Network Engineer Name Role Phone Larissa Griggs MD Primary Care Physic sophia [place] [facility] [place](s): 03/09/22 - 03/16/[address] [address]- Attending Physician: Jesús Loredo NP Referring Physician: Larissa Griggs MD Allergies, Adverse Reactions, Alerts No Known [...] 3 Refills, Maintenance, 12/17/21 15:20:00 EDT, Tablet, [facility]/pharmacy #[id number], Partial fill upon [...] tablet, 3 Refills, Maintenance, 11/03/21 16:31:00 EDT, [id number], 186, cm, 10/23/21 14:57:00 EDT, Height, 88.1, [...] 12/17/21 15:20:00 EDT, Route to Pharmacy Electronically, [facility]/pharmacy #[id number], Partial fill upon [...] capsule, 0 Refills, Maintenance, 11/28/21 9:00:00 EDT, [facility], Partial fill upon patient request if the prescription is for a schedule II opioid drug., 187, cm, 10/0... Start Date: 11/28/21 Status: Ordered furosemide 40 mg oral tablet 1, tablet, By Mouth, Daily, PRN, LEG SWELLING., # 30 tablet, Refills 3, Maintenance, NEEDED, 02/16/22 7:39:00 EST, Route to Pharmacy Electronically, [facility] [id number], 187, cm, 01/26/22 11:24:00 EST, Height, 91, kg, 11/20/21 17:55:00 EDT, Dry Weight Start Date: 02/16/22 Status: Ordered gabapentin 300 mg oral capsule 600 mg, 2, capsule, By Mouth, 2 times a day, # 120 capsule, Refills 5, Tot. Refills 5, Maintenance,02/10/22 15:57:00 EST, [id number] fill upon patient request [...] 1 Refills, Maintenance, 05/29/21 14:41:00 EDT, Tablet, [facility]/pharmacy #[id number], 186, cm, 05/29/21 14:1... [...] capsule, 3 Refills, Maintenance, 02/05/22 15:19:00 EST, [facility]/pharm[facility] #[id number], 187, cm, 01/26/22 11:24:00 EST, [...] 11/24/21 11:13:00 EDT, Route to Pharmacy Electronically, [facility], Partial fill upon patient [...] recent to oldest [Reference Range]: 1 Height 187 cm (01/26/22 11:24 AM) Weight 87.0 kg (01/26/22 11:24 AM) Social History Social History Type Response Smoking Status Never smoker; Tobacc o user in household: No entered on: 09/03/14 Sex Patient Care team information Care Team Personnel Name: Elva Briseno RN Position: S RN Member Role: Primary Care Nurse Name: Christiano Hernandez RN Position: [facility] RN Member Role: Primary Care Nurse Name: Nova Soto RN Position: [facility] ED RN W/OE and Tasks Member Role: Primary Care Nurse Name: Larissa Griggs MD Position: [facility] Physician (General Medicine) Member Role: PCP Address: Address: [address] [place] [address] [facility] [place] [address]- Name: Zara Gongora Position: [facility] Outreach Member Role: Lifetime Consulting Physician Name: China Gomez Position: [facility] RN Member Role: Primary Care Nurse Name: Arpit Davis RN Position: [facility] ED RN W/OE and Tasks Member Role: Primary Care Nurse Name: Gala Schwartz RN Position: [facility] RN Member Role: Primary Care Nurse Name: Marc Sidhu DO Position: [facility] Renal MD Member Role: Lifetime Consulting Physician Address: Address: [address] [place] [address] [address] [facility] [place] [address]- Name: Jannette Boyer RN Position: [facility] RN Member Role: Primary Care Nurse Name: Sarina Del Rio RN Position: [facility] Onco RN Member Role: Primary Care Nurse Care Team Related Persons Name: TRINIDAD CRUMP Name: ELICIA BRONSON Address: home [address] [place] [address]
--- OUTSIDE RECORDS SUMMARY | 2024-01-13 12:02 | XMS_ITS | Continuity of Care Document ---
Author Organization [facility] Address [address] [facility], [address] d Floor, [address] [place] [address]- Care Team Providers Care Vest Busheler Name Role Phone Eve Warren MD, Larissa Medina Primary Care Physic sophia Encounter [facility] [place] Date(s): 02/28/19 - 09/19/19 [facility] [address], [address], [address] [place] [address] [facility] Attending Physician: Rosaura Broderick MD Admitting Physician: Rosaura Broderick MD Allergies, Adverse Reactions, Alerts Substance Reaction Severity Status NKA Active Immunizations Given and Recorded Vaccine Date Status Refusal Reason influenza virus vaccine, inactivated 11/27/14 Give n pneumococcal 23-valent vaccine 1 12/15/10 Given 1Early/Late Reason: Other: Medications allopurinol 100 mg oral tablet 100 mg, 1, tablet, By Mouth, 3 times a day, Refills 0, Maintenance, 01/01/18 18:43:12 EST Start Date: 01/01/18 Status: Ordered aspirin 81 mg oral tablet 1 tablet = 81 mg, By Mouth, Daily, 0 Refills, Maintenance, 01/01/18 18:44:36 EST Start Date: 01/01/18 Status: Ordered atorvastatin 80 mg oral tablet 1 tablet = 80 mg, By Mouth, Daily, # 90 tablet, 3 Refills, Maintenance, 02/20/19 13:23:00 EST, Tablet, [id number], 186, cm, 01/30/19 9:20:00 EST, Height, 97, kg, 06/16/18 9:43:00 EDT, Dry Weight Start Date: 02/20/19 Status: Ordered clopidogrel 75 mg oral tablet 75 mg, 1, tablet, By Mouth, Daily, # 30 tablet, Refills 11, Tot. Refills 11, Maintenance, 01/22/19 9:48:15 EST, Route to Pharmacy Electronically, [id number], [facility] #[id number] Start Date: 01/22/19 Stop Date: 01/17/20 Status: Ordered colchicine 0.6 mg oral tablet 0.6 mg, 1, tablet, By Mouth, Daily, Refills 0, Maintenance, 01/01/18 18:45:03 EST Start Date: 01/01/18 Status: Ordered Coreg 6.25 mg oral tablet 6.25 mg, 1, tablet, By Mouth, 2 times a day, # 60 tablet, Refills 11, Tot. Refills 11, Maintenance,02/01/19 9:26:07 EST, Route to Pharmacy Electronically, [id number], [facility]acy #[id number], 186, cm, 01/30/19 9:20:58 EST, Height... Start Date: 02/01/19 Status: Ordered Ferrous Sulfate ER See Instructions, [...] tablet, Refills 11, Tot. Refills 11, Maintenance, 01/22/19 9:48:35 EST, Route to Pharmacy Electronically, [id number], [facility] #[id number] Start Date: 01/22/19 Stop Date: 01/17/20 Status: Ordered loperamide 2 mg oral tablet, chewable 1 tablet = 2 mg, Chew, 2 times a day, PRN for loose stool, # 20 tablet, 0 Refills, Maintenance, 08/16/19 18:31:00 EDT, Chew Tablet, [facility] #[id number], 1 tablet Chew 2 times a [...] 1 Refills, Maintenance, 07/17/19 11:37:00 EDT, Tablet, [facility] #[id number], 186, cm, 03/02/19 8:12... Start Date: 07/17/19 Status: Ordered oxyCODONE 5 mg oral tablet TAKE ONE CAPSULE EVERY 8 HOURS NEEDED FOR PAIN*FILL 12/27/17* Start Date: 01/01/18 Status: Ordered spironolactone 50 mg oral tablet 1 tablet = 50 mg, By Mouth, Daily, # 30 tablet, 0 Refills, Maintenance, 02/03/18 15:08:51 EST, Tablet Start Date: 02/03/18 Status: Ordered Testosterone Enanthate 200 mg/mL intramuscular [...] 0 Refills, Maintenance, 08/16/19 18:31:00 EDT, Tablet, [id number], 186, cm, 03/02/19 8:12:00 EST, Height, [...]
--- OUTSIDE RECORDS SUMMARY | 2024-01-13 12:02 | XMS_ITS | Continuity of Care Document ---
Author Organization [facility] Address [address] [place] [address]- Care Team Providers Care Smasher Hand Name Role Phone Eve Warren MD, Larissa Medina Primary Care Physic sophia Encounter [facility] [place] Date(s): 02/11/23 - 03/13/23 [facility] [address] [place] [address]- Attending Physician: Cristiano Prado Admitting Physician: AdmCristiano [...] opioid drug. Start Date: 11/19/21 Status: Ordered aspirin 81 mg oral delayed release tablet 81 mg, 1, tablet, By Mouth, Daily, Maintenance, 04/25/22 13:00:00 EST, Partial fill upon patient request if the prescription is for a schedule II opioid drug. Start Date: 04/25/22 Status: Ordered atorvastatin 80 mg oral tablet 1 tablet, By Mouth, Daily, # 90 tablet, 3 Refills, Maintenance, 11/22/22 7:50:00 EDT, [facility] 05692, 178, cm, 10/15/22 8:07:00 EDT, Height, 99.3, kg, 08/22/22 14:01:00 EDT, Dry Weight Start Date: 11/22/22 Status: Ordered carvedilol 12.5 mg oral tablet 1, tablet, By Mouth, 2 times a day, # 180 tablet, Refills 3, Maintenance, 02/10/23 15:08:00 EST, Route to Pharmacy Electronically, [facility] 24427, 178, cm, 02/03/23 11:28:00 EST, Height, 99.3, [...] 11/10/22 14:37:00 EDT, Route to Pharmacy Electronically, [facility] 20096, 178, cm, 10/15/22 8:07:00 EDT, Height, 99.3, kg, 08/22/22 14:01:00 EDT, Dry Weight Start Date: 11/10/22 Status: Ordered dorzolamide-timolol 2.23%-0.68% ophthalmic solution 1 drops, Eye, Right, 2 times a day Start Date: 11/19/21 Status: Ordered duloxetine 30 mg oral enteric coated capsule 1 capsule = 30 mg, By Mouth, Daily, start taking from 11/28/21, # 30 capsule, 0 Refills, Maintenance, 11/28/21 9:00:00 EDT, [facility], Partial fill upon patient request if the prescription is for a schedule II opioid drug., 187, cm, 10/0... Start Date: 11/28/21 Status: Ordered furosemide 40 mg oral tablet See Instructions, 1 TABLET BY MOUTH EVERY TUESDAY, TUESDAY AND TUESDAY, # 39 tablet, Refills 1, Maintenance, 01/24/23 7:47:00 EST, Instructions Replace Required Details, Route to Pharmacy Electronically, [facility] 35917, 178, cm, 10/15/22 8:07:00 EDT,... Start Date: 01/24/23 Status: Ordered gabapentin 300 mg oral capsule 900 mg, 3, capsule, By Mouth, 2 times a day, # 180 capsule, Refills 5, Tot. Refills 5, Maintenance,10/15/22 8:33:00 EDT, Route to Pharmacy Electronically, [facility]/pharmacy #[id number], 178, cm, 10/15/22 8:07:00 EDT, [...] 1 Refills, Maintenance, 05/29/21 14:41:00 EDT, Tablet, [facility]/pharmacy #[id number], 186, cm, 05/29/21 14:1... [...] 11/24/21 11:13:00 EDT, Route to Pharmacy Electronically, [facility] 3, Partial fill upon patient request if [...] Team Personnel Name: Christiano Hernandez RN Position: [facility] RN Member Role: Primary Care Nurse Name: Nova Soto RN Position: [facility] ED RN W/OE and Tasks Member Role: Primary Care Nurse Name: Larissa Griggs MD Position: [facility] Physician - Endocrinology Member Role: PCP Address: Address: [address] [place] [address] [place] [address]- Name: Zara Gongora Position: [facility] Outreach Member Role: Lifetime Consulting Physician Name: China Gomez Position: [facility] RN Member Role: Primary Care Nurse Name: Arpit Davis RN Position: [facility] ED RN W/OE and Tasks Member Role: Primary Care Nurse Name: Gala Schwartz RN Position: [facility] RN Member Role: Primary Care Nurse Name: Marc Sidhu DO Position: [facility] Renal MD Member Role: Lifetime Consulting Physician Address: Address: [address] [place], [place] [address] [place] [address]- Name: Lonnie Rosario RN Position: [facility] RN Member Role: Primary Care Nurse Name: Jason Anand RN Position: [facility] RN Member Role: Primary Care Nurse Name: Jannette Boyer RN Position: [facility] SN RN Member Role: Primary Care Nurse Name: Sarina Del Rio RN Position: [facility] Onco RN Member Role: Primary Care Nurse Care Team Related Persons Name: ALISIA TRINIDAD Name: AIYANA ELICIA Address: home [address] [place] [address]
--- OUTSIDE RECORDS SUMMARY | 2024-01-13 12:02 | XMS_ITS | Continuity of Care Document ---
Author Organization [facility] Address [address] [place] [phone]- Care Team Providers Care Nuclear Scientist Name Role Phone Eve [place] MD, Larissa Medina Primary Care Physic sophia Encounter [facility] Date(s): 09/21/23 - 10/21/23 [facility] [address] [place] [address]- [place] Allergies, Adverse Reactions, Alerts No Known [...] tablet, 3 Refills, Maintenance, 06/30/23 10:54:00 EDT, [facility][id number], 186, cm, 06/21/23 15:46:00 EDT, Height, 102, kg, 06/21/23 15:46:00 EDT, Dry Weight Start Date: 06/30/23 Status: Ordered carvedilol 12.5 mg oral tablet 1, tablet, By Mouth, 2 times a day, # 180 tablet, Refills 3, Maintenance, 02/10/23 15:08:00 EST, Route to Pharmacy Electronically, [facility], 178, cm, 02/03/23 11:28:00 EST, Height, 99.3, [...] 09/05/23 15:11:00 EDT, Route to Pharmacy Electronically, [facility] 96100, 185, cm, 08/09/23 6:22:00 EDT, Height, 97.8, kg, 08/08/23 14:44:00 EDT, Dry Weight Start Date: 09/05/23 Status: Ordered dorzolamide-timolol 2.23%-0.68% ophthalmic solution 1 drops, Eye, Right, 2 times a day Start Date: 11/19/21 Status: Ordered duloxetine 30 mg oral enteric coated capsule 1 capsule = 30 mg, By Mouth, Daily, start taking from 11/28/21, # 30 capsule, 0 Refills, Maintenance, 11/28/21 9:00:00 EDT, [facility], Partial fill upon patient request if the prescription is for a schedule II opioid drug., 187, cm, 10/0... Start Date: 11/28/21 Status: Ordered Eliquis 2.5 mg oral tablet 1 tablet = 2.5 mg, By Mouth, 2 times a day, # 60 tablet, 0 Refills, Maintenance, 08/09/23 8:46:00 EDT, Tablet, [facility], Partial fill upon patient request if the prescription is for aschedule II opioid drug., 185, cm, 08/09/23 6:22:00... Start Date: 08/09/23 Stop Date: 09/08/23 Status: Ordered furosemide 40 mg oral tablet See Instructions, 1 TABLET BY MOUTH EVERY TUESDAY, TUESDAY AND TUESDAY, # 39 tablet, Refills 1, Maintenance, 01/24/23 7:47:00 EST, Instructions Replace Required Details, Route to Pharmacy Electronically, [facility], 178, cm, 10/15/22 8:07:00 EDT,... Start Date: 01/24/23 Status: Ordered gabapentin 300 mg oral capsule 900 mg, 3, capsule, By Mouth, 2 times a day, # 180 capsule, Refills 5, Tot. Refills 5, Maintenance,10/15/22 8:33:00 EDT, Route to Pharmacy Electronically, [facility]/pharmacy #[id number], 178, cm, 10/15/22 8:07:00 EDT, Height, [...] 1 Refills, Maintenance, 05/29/21 14:41:00 EDT, Tablet, [facility]/pharmacy #[id number], 186, cm, 05/29/21 14:1... Start Date: [...] tablet, 11 Refills, Maintenance, 09/21/23 16:08:00 EDT, [facility]/pharmacy #[id number], 185, cm, 08/09/23 6:22:00 EDT, Height, [...] 11/24/21 11:13:00 EDT, Route to Pharmacy Electronically, [facility], Partial fill upon patient request if [...] Team Personnel Name: Christiano Hernandez RN Position: [facility] RN Member Role: Primary Care Nurse Name: Nova Soto RN Position: [facility] ED RN W/OE and Tasks Member Role: Primary Care Nurse Name: Larissa Griggs MD Position: [facility] Physician - Endocrinology Member Role: PCP Address: Address: [address] [place] [address] [place] [address]- Name: Zara Gongora Position: [facility] Outreach Member Role: Lifetime Consulting Physician Name: China Gomez Position: [facility] RN Member Role: Primary Care Nurse Name: Arpit Davis RN Position: [facility] ED RN W/OE and Tasks Member Role: Primary Care Nurse Name: Gala Schwartz RN Position: [facility] RN Member Role: Primary Care Nurse Name: Marc Sidhu DO Position: [facility] Renal MD Member Role: Lifetime Consulting Physician Address: Address: [address] [place], [place] [address] [place] [address]- Name: Meseret Rosario RN Position: [facility] RN Member Role: Primary Care Nurse Name: Lonnie Rosario RN Position: [facility] RN Member Role: Primary Care Nurse Name: Kirby Zavala RN Position: [facility] RN Member Role: Primary Care Nurse Name: Jason Anand RN Position: [facility] RN Member Role: Primary Care Nurse Name: Jannette Boyer RN Position: [facility] AMB Nurse Member Role: Primary Care Nurse Name: Toby Shafer RN Position: [facility] RN Member Role: Primary Care Nurse Name: Lesa Oneill RN Position: [facility] RN Member Role: Primary Care Nurse Name: Sarina Del Rio RN Position: [facility] Onco RN Member Role: Primary Care Nurse Care Team Related Persons Name: TRINIDAD CRUMP Name: ELICIA BRONSON Address: home [address] [place], [place] [id number]
--- OUTSIDE RECORDS SUMMARY | 2024-01-13 12:02 | XMS_ITS | Continuity of Care Document ---
Author Organization [facility] Address [address] [place] [address]- Care Team Providers Care Flat Clothier Name Role Phone Eve [place] MD, Larissa Medina Primary Care Physic sophia Encounter [facility] Date(s): 05/10/23 - 07/09/[address] [address]- Attending Physician: Dante Thompson MD Admitting Physician: Dante Thompson MD Referring Physician: Dante Thompson MD Allergies, Adverse Reactions, Alerts No Known [...] tablet, 3 Refills, Maintenance, 06/30/23 10:54:00 EDT, [facility] #[id number], 186, cm, 06/21/23 15:46:00 EDT, Height, 102, kg, 06/21/23 15:46:00 EDT, Dry Weight Start Date: 06/30/23 Status: Ordered carvedilol 12.5 mg oral tablet 1, tablet, By Mouth, 2 times a day, # 180 tablet, Refills 3, Maintenance, 02/10/23 15:08:00 EST, Route to Pharmacy Electronically, [facility] 26229, 178, cm, 02/03/23 11:28:00 EST, Height, 99.3, [...] 11/10/22 14:37:00 EDT, Route to Pharmacy Electronically, [facility] 46868, 178, cm, 10/15/22 8:07:00 EDT, Height, 99.3, kg, 08/22/22 14:01:00 EDT, Dry Weight Start Date: 11/10/22 Status: Ordered dorzolamide-timolol 2.23%-0.68% ophthalmic solution 1 drops, Eye, Right, 2 times a day Start Date: 11/19/21 Status: Ordered duloxetine 30 mg oral enteric coated capsule 1 capsule = 30 mg, By Mouth, Daily, start taking from 11/28/21, # 30 capsule, 0 Refills, Maintenance, 11/28/21 9:00:00 EDT, [facility], Partial fill upon patient request if the prescription is for a schedule II opioid drug., 187, cm, 100... Start Date: 11/28/21 Status: Ordered furosemide 40 mg oral tablet See Instructions, 1 TABLET BY MOUTH EVERY TUESDAY, TUESDAY AND TUESDAY, # 39 tablet, Refills 1, Maintenance, 01/24/23 7:47:00 EST, Instructions Replace Required Details, Route to Pharmacy Electronically, [facility] 39829, 178, cm, 10/15/22 8:07:00 EDT,... Start Date: 01/24/23 Status: Ordered gabapentin 300 mg oral capsule 900 mg, 3, capsule, By Mouth, 2 times a day, # 180 capsule, Refills 5, Tot. Refills 5, Maintenance,10/15/22 8:33:00 EDT, Route to Pharmacy Electronically, [facility]/pharmacy #[id number], 178, cm, 10/15/22 8:07:00 EDT, Height, 99.3, kg, 08/22/22 14:01:00 EDT, Dry... Start Date: 10/15/22 Stop Date: 04/13/23 Status: Ordered gabapentin 300 mg oral capsule 900 mg, 3, capsule, By Mouth, 2 times a day, # 180 capsule, Refills 5, Tot. Refills 5, Maintenance,05/19/23 12:29:00 EDT, Route to Pharmacy Electronically, [facility] #[id number], 186, cm, 04/20/23 21:24:00 EST, Height, 95.5, kg, 04/20/23 21:24:... Start Date: 05/19/23 Stop Date: 11/15/23 Status: Ordered latanoprost 0.005% ophthalmic solution 1 drops, Eye, Right, Daily at bedtime, 0 Refills, Maintenance, 01/01/18 18:46:39 EST Start Date: 01/01/18 Status: Ordered lidocaine 5% topical film 2 patch, Topically, Daily, remove patches after 12 hours, # 30 patch, 0 Refills, Maintenance, 04/20/23 19:59:00 EST, Film, [facility]/pharmacy #0750, Partial fill upon patient request [...] 1 Refills, Maintenance, 05/29/21 14:41:00 EDT, Tablet, [facility]/pharmacy #[id number], 186, cm, 05/29/21 14:1... Start Date: 05/29/21 Status: Ordered oxyCODONE 5 mg oral capsule 1 capsule = 5 mg, By Mouth, Every 6 hours, PRN for pain, # 28 capsule, 0 Refills, Maintenance, 04/20/23 19:53:00 EST, Capsule, [facility]/pharmacy #0750, Partial fill upon patient request [...] Refills, Maintenance, 05/18/23 15:11:00 EDT, ER Tablet, [facility]/pharmacy #[id number], Partial fill upon patient request if the prescription is for a schedule II opioid drug., 186, c... Start Date: 05/18/23 Status: Ordered Potassium Chloride (Eqv-K-Tab) 20 mEq oral tablet, extended release See Instructions, 2 TABLET BY MOUTH EVERY TUESDAY, TUESDAY AND TUESDAY, # 26 tablet, 0 Refills, Maintenance, 05/30/23 13:43:00 EDT, [facility]ORE 09701, 186, cm, 05/25/23 14:56:00 EDT, Height, 95.5, [...] 11/24/21 11:13:00 EDT, Route to Pharmacy Electronically, [facility], Partial fill upon patient [...] Team Personnel Name: Christiano Hernandez RN Position: [facility] RN Member Role: Primary Care Nurse Name: Nova Soto RN Position: [facility] ED RN W/OE and Tasks Member Role: Primary Care Nurse Name: Larissa Griggs MD Position: [facility] Physician - Endocrinology Member Role: PCP Address: Address: [address] [place] [address] [place] [address]- Name: Zara Gongora Position: [facility] Outreach Member Role: Lifetime Consulting Physician Name: China Gomez Position: [facility] RN Member Role: Primary Care Nurse Name: Arpit Davis RN Position: [facility] ED RN W/OE and Tasks Member Role: Primary Care Nurse Name: Gala Schwartz RN Position: S RN Member Role: Primary Care Nurse Name: Marc Sidhu DO Position: [facility] Renal MD Member Role: Lifetime Consulting Physician Address: Address: [address] [place] [address] [address] [facility] [place] [address]- Name: Lonnie Rosario RN Position: [facility] RN Member Role: Primary Care Nurse Name: Jason Anand RN Position: [facility] RN Member Role: Primary Care Nurse Name: Jannette Boyer RN Position: [facility] AMB Nurse Member Role: Primary Care Nurse Name: Toby Shafer RN Position: [facility] RN Member Role: Primary Care Nurse Name: Lesa Oneill RN Position: [facility] RN Member Role: Primary Care Nurse Name: Sarina Del Rio RN Position: [facility] Onco RN Member Role: Primary Care Nurse Care Team Related Persons Name: TRINIDAD CRUMP Name: ELICIA BRONSON Address: home [address] [place] [address]
--- OUTSIDE RECORDS SUMMARY | 2024-01-13 12:02 | XMS_ITS | Continuity of Care Document ---
Author Organization [facility] Address [address] [facility], [address] Floor, [address] [place] [address]- Care Team Providers Care Deputy Director Name Role Phone Eve [place] MD, Larissa Medina Primary Care Physic sophia Encounter [facility] Date(s): 08/19/22 - 09/18/22 [facility] [address], [address], [address] [place] [address]- Allergies, Adverse Reactions, Alerts No Known Allergies [...] tablet, 3 Refills, Maintenance, 11/03/21 16:31:00 EDT, [facility] 71588, 186, cm, 10/23/21 14:57:00 EDT, Height, 88.1, [...] 12/17/21 15:20:00 EDT, Route to Pharmacy Electronically, [facility]/pharmacy #[id number], Partial fill upon patient request if the prescription is for a schedule II... Start Date: 12/17/21 Stop Date: 12/12/22 Status: Ordered donepezil 5 mg oral tablet 1, tablet, By Mouth, Daily at bedtime, # 30 tablet, Refills 5, Maintenance, 07/30/22 16:18:00 EDT, Route to Pharmacy Electronically, [facility] 61990, 187, cm, 05/27/22 14:44:00 EDT, Height, 98, kg, 04/26/22 0:21:00 EST, Dry Weight Start Date: 07/30/22 Status: Ordered dorzolamide-timolol 2.23%-0.68% ophthalmic solution 1 drops, Eye, Right, 2 times a day Start Date: 11/19/21 Status: Ordered duloxetine 30 mg oral enteric coated capsule 1 capsule = 30 mg, By Mouth, Daily, start taking from 11/28/21, # 30 capsule, 0 Refills, Maintenance, 11/28/21 9:00:00 EDT, [facility], Partial fill upon patient request [...] Status: Ordered gabapentin 300 mg oral capsule 2, capsule, By Mouth, 2 times a day, # 120 capsule, Refills 5, Maintenance, 08/19/22 14:52:00 EDT, Route to Pharmacy Electronically, [facility] 63965, 187, cm, 05/27/22 14:44:00 EDT, Height, 98, kg, 04/26/22 0:21:00 EST, Dry Weight Start Date: 08/19/22 Status: Ordered latanoprost 0.005% ophthalmic solution 1 [...] 0 Refills, Soft Stop, 08/22/22 16:30:00 EDT, [facility], Partial fill upon patient request if the prescription is for a schedule II opioid drug... Start Date: 08/22/22 Status: Ordered nitroglycerin 0.4 mg sublingual tablet 1 tablet = 0.4 mg, Sublingual, Every 5 minutes, PRN for chest pain, not to exceed 3 doses/15 min--if pain persists, seek medical attention, # 100 tablet, 1 Refills, Maintenance, 05/29/21 14:41:00 EDT, Tablet, [facility]/pharmacy #[id number], 186, cm, 05/29/21 14:1... Start Date: [...] 11/24/21 11:13:00 EDT, Route to Pharmacy Electronically, [facility], Partial fill upon patient request [...] Team Personnel Name: Christiano Hernandez RN Position: [facility] RN Member Role: Primary Care Nurse Name: Nova Soto RN Position: [facility] ED RN W/OE and Tasks Member Role: Primary Care Nurse Name: Larissa Griggs MD Position: [facility] Physician - Endocrinology Member Role: PCP Address: Address: [address] [place] [address] [place] [address]- Name: Zara Gongora Position: [facility] Outreach Member Role: Lifetime Consulting Physician Name: China Gomez Position: [facility] RN Member Role: Primary Care Nurse Name: Arpit Davis RN Position: [facility] ED RN W/OE and Tasks Member Role: Primary Care Nurse Name: Gala Schwartz RN Position: [facility] RN Member Role: Primary Care Nurse Name: Marc Sidhu DO Position: [facility] Renal MD Member Role: Lifetime Consulting Physician Address: Address: [address] [place], [place] [address] [place] [address]- Name: Lonnie Rosario RN Position: [facility] RN Member Role: Primary Care Nurse Name: Jason Anand RN Position: [facility] RN Member Role: Primary Care Nurse Name: Sarina Del Rio RN Position: [facility] Onco RN Member Role: Primary Care Nurse Care Team Related Persons Name: TRINIDAD CRUMP Name: ELICIA BRONSON Address: [place] [address]
--- OUTSIDE RECORDS SUMMARY | 2024-01-13 12:02 | XMS_ITS | Continuity of Care Document ---
Author Organization [facility] Address [address] [place] [address]- Care Team Providers Care Manufacturing Engineering Technologist Name Role Phone Eve [place] MD, Larissa Medina Primary Care Physic sophia Encounter [facility] Date(s): 05/27/22 - 06/26/22 [facility] [address] [place], [place] [id number]- Attending Physician: Cristiano Prado Admitting Physician: Cristiano Prado Referring Physician: Cristiano Prado Allergies, Adverse Reactions, Alerts No Known Allergies [...] tablet, 3 Refills, Maintenance, 11/03/21 16:31:00 EDT, [facility] 05590, 186, cm, 10/23/21 14:57:00 EDT, Height, 88.1, [...] 12/17/21 15:20:00 EDT, Route to Pharmacy Electronically, [facility]/pharmacy #[id number], Partial fill upon patient request if [...] capsule, 0 Refills, Maintenance, 11/28/21 9:00:00 EDT, [facility], Partial fill upon [...] Maintenance,02/10/22 15:57:00 EST, Route to Pharmacy Electronically, [facility]/pharmacy #[id number], Partial fill upon patient request if [...] 1 Refills, Maintenance, 05/29/21 14:41:00 EDT, Tablet, [facility]/pharmacy #1070, 186, cm, 05/29/21 14:1... Start Date: [...] 11/24/21 11:13:00 EDT, Route to Pharmacy Electronically, [facility], Partial fill upon [...] Griggs MD Position: [facility] Physician (General Medicine) Member Role: PCP Address: Address: [address] [place] [address] Name: Zara Gongora Position: [facility] [...] Member Role: Lifetime Consulting Physician Address: Address: [address] [place] [address] [address] [facility] [place] [place] [address] Name: Abraham MURRELL, Lonnie Perry Position: [facility] RN Member Role: Primary Care Nurse Name: Jason Anand RN Position: [facility] RN Member Role: Primary Care Nurse Name: Sarina Del Rio RN Position: [facility] Onco RN Member Role: Primary Care Nurse Name: Emmie Vera Position: [facility] RN Member Role: Primary Care Nurse Care Team Related Persons Name: TRINIDAD CRUMP Name: ELICIA BRONSON Address: home [address] [place] [address]
--- OUTSIDE RECORDS SUMMARY | 2024-01-13 12:02 | XMS_ITS | Continuity of Care Document ---
Author Organization [facility] Address [address] [place] [address]- Care Team Providers Care Manager Brand Name Role Phone Eve [place] MD, Larissa Medina Primary Care Physic sophia Encounter [facility] Date(s): 01/25/22 - 02/24/[address] [address]- Attending Physician: Cristiano Prado Admitting Physician: AdmCristiano [...] tablet, 3 Refills, Maintenance, 11/03/21 16:31:00 EDT, [facility] ST[facility] 50427, 186, cm, 10/23/21 14:57:00 EDT, Height, 88.1, [...] 12/17/21 15:20:00 EDT, Route to Pharmacy Electronically, [facility]/pharmacy #[id number], Partial fill upon patient request [...] capsule, 0 Refills, Maintenance, 11/28/21 9:00:00 EDT, [facility], Partial fill upon patient request if the prescription is for a schedule II opioid drug., 187, cm, 10/0... Start Date: 11/28/21 Status: Ordered furosemide 40 mg oral tablet 1, tablet, By Mouth, Daily, PRN, LEG SWELLING., # 30 tablet, Refills 3, Maintenance, NEEDED, 02/16/22 7:39:00 EST, Route to Pharmacy Electronically, [facility] 54221, 187, cm, 01/26/22 11:24:00 EST, Height, 91, kg, 11/20/21 17:55:00 EDT, Dry Weight Start Date: 02/16/22 Status: Ordered gabapentin 300 mg oral capsule 600 mg, 2, capsule, By Mouth, 2 times a day, # 120 capsule, Refills 5, Tot. Refills 5, Maintenance,02/10/22 15:57:00 EST, Route to Pharmacy Electronically, [facility]/pharmacy #[id number], Partial fill upon patient request [...] 1 Refills, Maintenance, 05/29/21 14:41:00 EDT, Tablet, [facility]/pharmacy #[id number], 186, cm, 05/29/21 14:1... Start [...] capsule, 3 Refills, Maintenance, 02/05/22 15:19:00 EST, [facility]/pharmacy #[id number], 187, cm, 01/26/22 11:24:00 EST, [...] 11/24/21 11:13:00 EDT, Route to Pharmacy Electronically, [facility], Partial fill upon patient request [...] Team Personnel Name: Elva Briseno RN Position: [facility] RN Member Role: Primary Care Nurse Name: Christiano Hernandez RN Position: [facility] RN Member Role: Primary Care Nurse Name: Nova Soto RN Position: [facility] ED RN W/OE and Tasks Member Role: Primary Care Nurse Name: Larissa Griggs MD Position: [facility] Physician (General Medicine) Member Role: PCP Address: Address: [address] [place] [address]- Name: Zara Gongora Position: [facility] Outreach Member Role: Lifetime Consulting Physician Name: China Gomez Position: [facility] RN Member Role: Primary Care Nurse Name: Arpit Davis RN Position: [facility] ED RN W/OE and Tasks Member Role: Primary Care Nurse Name: Gala Schwartz RN Position: S RN Member Role: Primary Care Nurse Name: Marc Sidhu DO Position: [facility] Renal MD Member Role: Lifetime Consulting Physician Address: Address: [address] [place], [place] [address] [place] [address]- Name: Jannette Boyer RN Position: [facility] RN Member Role: Primary Care Nurse Name: Sarina Del Rio RN Position: [facility] Onco RN Member Role: Primary Care Nurse Care Team Related Persons Name: TRINIDAD CRUMP Name: ELICIA BRONSON Address: home [address] [place] [address]
--- OUTSIDE RECORDS SUMMARY | 2024-01-13 12:03 | XMS_ITS | Continuity of Care Document ---
Author Organization [facility] Address [address] [place] [address]- Care Team Providers Care Online Merchant Name Role Phone Eve Warren MD, Larissa Medina Primary Care Physic sophia Encounter [facility] [place] Date(s): 02/04/21 - 03/06/21 [facility] [address] [place] [address]- [place] Allergies, Adverse Reactions, Alerts No Known [...] Daily, # 90 tablet, 3 Refills, Maintenance, 02/04/21 14:50:00 EST, Tablet, [id number], 186, cm, 11/27/20 13:22:00 EDT, Height Start Date: 02/04/21 Stop Date: 01/30/22 Status: Ordered colchicine 0.6 mg oral tablet 0.6 mg, 1, tablet, By Mouth, Daily, Refills 0, Maintenance, 01/01/18 18:45:03 EST Start Date: 01/01/18 Status: Ordered Coreg 12.5 mg oral tablet 12.5 mg, 1, tablet, By Mouth, 2 times a day, # 180 tablet, Refills 3, Tot. Refills 3, Maintenance, 05/02/20 13:32:00 EST, Route to Pharmacy Electronically, [facility]/pharmacy #[id number], Partial fill upon patient request if the prescription is for a schedule II... Start Date: 05/02/20 Stop Date: 04/27/21 Status: Ordered Ferrous Sulfate ER See Instructions, takes 65 mg (2 tabs) daily, Refills 0, Maintenance, 01/01/18 20:20:23 EST, Instructions Replace Required Details Start Date: 01/01/18 Status: Ordered gabapentin 300 mg oral capsule 4, capsule, By Mouth, 2 times a day, X30 DAYS., # 240 capsule, Refills 5, Route to Pharmacy Electronically, [facility] STORE [id number], 186, cm, 11/27/20 13:22:00 EDT, Height Start Date: 12/29/20 Status: Ordered Glucosamine Chondroitin By Mouth, Daily, 0 Refills, Maintenance, 03/01/19 8:33:00 EST Start Date: 03/01/19 Status: Ordered Hysingla ER 30 mg oral tablet, extended release 1 tablet = 30 mg, By Mouth, Every 24 hours, do not crush or chew, 0 Refills, Maintenance, 11/07/20 13:50:00 EDT, ER Tablet, Partial fill upon patient request if the prescription is for a schedule II opioid drug. Start Date: 11/07/20 Status: Ordered latanoprost 0.005% ophthalmic solution 1 drops, Eye, Right, Daily before dinner, 0 Refills, Maintenance, 01/01/18 18:46:39 EST Start Date: 01/01/18 Status: Ordered lisinopril 5 mg oral tablet 5 mg, 1, tablet, By Mouth, Daily, # 30 tablet, Refills 11, Tot. Refills 11, Maintenance, 01/05/21 13:15:00 EST, Route to Pharmacy Electronically, [facility]/pharmacy #[id number], 186, cm, 11/27/20 13:22:00 EDT, Height Start Date: 01/05/21 Stop Date: 12/31/21 Status: Ordered loperamide 2 mg oral tablet, chewable 1 tablet = 2 mg, Chew, 2 times a day, PRN for loose stool, # 20 tablet, 0 Refills, Maintenance, 08/16/19 18:31:00 EDT, Chew Tablet, [facility]/pharmacy #[id number], 1 tablet Chew 2 times a [...] 1 Refills, Maintenance, 07/17/19 11:37:00 EDT, Tablet, [facility]/pharmacy #[id number], 186, cm, 03/02/19 8:12... Start Date: 07/17/19 Status: Ordered oxyCODONE 5 mg oral tablet TAKE ONE CAPSULE EVERY 8 HOURS NEEDED FOR PAIN*FILL 12/27/17* Start Date: 01/01/18 Status: Ordered PROzac 20 mg oral capsule 20 mg, 1, capsule, By Mouth, Daily, # 30 capsule, Refills 0, Maintenance, 11/07/20 13:50:00 EDT, Partial fill upon patient request if the prescription is for a schedule II opioid drug. Start Date: 11/07/20 Status: Ordered spironolactone 50 mg oral tablet [...] 0 Refills, Maintenance, 08/16/19 18:31:00 EDT, Tablet, [facility]/pharmacy #[id number], 186, cm, 03/02/19 8:12:00 EST, Height, 97, kg, 06/16/18 9:43:00 EDT, Dry Weight Start Date: 08/16/19 Status: Ordered Problem List Condition Effective Dates Status Health Status Inform ant Chronic kidney disease, stag e 3(Confirmed) Active Coronary artery disease(Confirmed) Active Hypertension(Confirmed) Active Hypokalemia(Confirmed) Active Social History Social History Type Response Smoking Status Never smoker; Tobacc o user in household: No entered on: 09/03/14 Sex
--- OUTSIDE RECORDS SUMMARY | 2024-01-13 12:03 | XMS_ITS | Continuity of Care Document ---
Author Organization [facility] Address [address] [place] [address]- Care Team Providers Care School Standards Coach Name Role Phone Eve Warren MD, Larissa Medina Primary Care Physic sophia Encounter [facility] [place] Date(s): 08/02/23 - 09/01/23 [facility] [address] [place] [address]- Attending Physician: Cristiano Prado Admitting Physician: AdmtrCristiano Referring Physician: AdmtrCristiano Allergies, Adverse Reactions, Alerts [...] tablet, 3 Refills, Maintenance, 06/30/23 10:54:00 EDT, [facility] #[id number], 186, cm, 06/21/23 15:46:00 EDT, Height, 102, kg, 06/21/23 15:46:00 EDT, Dry Weight Start Date: 06/30/23 Status: Ordered carvedilol 12.5 mg oral tablet 1, tablet, By Mouth, 2 times a day, # 180 tablet, Refills 3, Maintenance, 02/10/23 15:08:00 EST, Route to Pharmacy Electronically, [facility] [id number], 178, cm, 02/03/23 11:28:00 EST, Height, 99.3, [...] 11/10/22 14:37:00 EDT, Route to Pharmacy Electronically, [facility] STORE [id number], 178, cm, 10/15/22 8:07:00 EDT, Height, 99.3, kg, 08/22/22 14:01:00 EDT, Dry Weight Start Date: 11/10/22 Status: Ordered dorzolamide-timolol 2.23%-0.68% ophthalmic solution 1 drops, Eye, Right, 2 times a day Start Date: 11/19/21 Status: Ordered duloxetine 30 mg oral enteric coated capsule 1 capsule = 30 mg, By Mouth, Daily, start taking from 11/28/21, # 30 capsule, 0 Refills, Maintenance, 11/28/21 9:00:00 EDT, [facility], Partial fill upon patient request if the prescription is for a schedule II opioid drug., 187, cm, 10/0... Start Date: 11/28/21 Status: Ordered Eliquis 2.5 mg oral tablet 1 tablet = 2.5 mg, By Mouth, 2 times a day, # 60 tablet, 0 Refills, Maintenance, 08/09/23 8:46:00 EDT, Tablet, [facility], Partial fill upon patient request if the prescription is for aschedule II opioid drug., 185, cm, 08/09/23 6:22:00... Start Date: 08/09/23 Stop Date: 09/08/23 Status: Ordered furosemide 40 mg oral tablet See Instructions, 1 TABLET BY MOUTH EVERY TUESDAY, TUESDAY AND TUESDAY, # 39 tablet, Refills 1, Maintenance, 01/24/23 7:47:00 EST, Instructions Replace Required Details, Route to Pharmacy Electronically, [facility] STORE [id number], 178, cm, 10/15/22 8:07:00 EDT,... Start Date: 01/24/23 Status: Ordered gabapentin 300 mg oral capsule 900 mg, 3, capsule, By Mouth, 2 times a day, # 180 capsule, Refills 5, Tot. Refills 5, Maintenance,10/15/22 8:33:00 EDT, Route to Pharmacy Electronically, [facility]/pharmacy #[id number], 178, cm, 10/15/22 8:07:00 EDT, [...] 1 Refills, Maintenance, 05/29/21 14:41:00 EDT, Tablet, [facility]/pharmacy #[id number], 186, cm, 05/29/21 14:1... Start [...] TUESDAY, # 26 tablet, 0 Refills, Maintenance, 08/23/23 15:15:00 EDT, [facility]/pharmacy #[id number], 185, cm, 08/09/23 6:22:00 EDT, Height, 97.8, kg, 08/08/23 14:44:00 EDT, Dry Weight Start Date: 08/23/23 Status: Ordered tadalafil 5 mg oral tablet [...] 11/24/21 11:13:00 EDT, Route to Pharmacy Electronically, [facility], Partial fill upon patient [...] Team Personnel Name: Christiano Hernandez RN Position: [facility] RN Member Role: Primary Care Nurse Name: Nova Soto RN Position: [facility] ED RN W/OE and Tasks Member Role: Primary Care Nurse Name: Larissa Griggs MD Position: [facility] Physician - Endocrinology Member Role: PCP Address: Address: [address] [place] [address] [place] [address]- Name: Zara Gongora Position: [facility] Outreach Member Role: Lifetime Consulting Physician Name: China Gomez Position: [facility] RN Member Role: Primary Care Nurse Name: Arpit Davis RN Position: [facility] ED RN W/OE and Tasks Member Role: Primary Care Nurse Name: Gala Schwartz RN Position: [facility] RN Member Role: Primary Care Nurse Name: Marc Sidhu DO Position: [facility] Renal MD Member Role: Lifetime Consulting Physician Address: Address: [address] [place], [place] [address] [place] [address]- Name: Meseret Rosario RN Position: [facility] RN Member Role: Primary Care Nurse Name: Lonnie Rosario RN Position: [facility] RN Member Role: Primary Care Nurse Name: Kirby Zavala RN Position: [facility] RN Member Role: Primary Care Nurse Name: Jason Anand RN Position: [facility] RN Member Role: Primary Care Nurse Name: Jannette Boyer RN Position: [facility] AMB Nurse Member Role: Primary Care Nurse Name: Toby Shafer RN Position: [facility] RN Member Role: Primary Care Nurse Name: Lesa Oneill RN Position: [facility] RN Member Role: Primary Care Nurse Name: Quang MURRELL Sarina Gandara Position: [facility] RN Member Role: Primary Care Nurse Care Team Related Persons Name: TRINIDAD CRUMP Name: ELICIA BRONSON Address: home [address] [place], [place] [id number]
--- OUTSIDE RECORDS SUMMARY | 2024-01-13 12:03 | XMS_ITS | Continuity of Care Document ---
Author Organization [facility] Address [address] [place] [address]- Care Team Providers Care Propagation Worker Name Role Phone Eve Warren MD, Larissa Medina Primary Care Physic sophia Encounter [facility] [place] Date(s): 08/02/23 - 08/09/23 [facility] [address] [place] [address]- Attending Physician: Willa CABEZAS, Vadim Zarate Referring Physician: Jay CABEZAS, Dante Ceron Allergies, Adverse Reactions, Alerts No Known Allergies [...] tablet, 3 Refills, Maintenance, 06/30/23 10:54:00 EDT, [facility] #[id number], 186, cm, 06/21/23 15:46:00 EDT, Height, 102, kg, 06/21/23 15:46:00 EDT, Dry Weight Start Date: 06/30/23 Status: Ordered carvedilol 12.5 mg oral tablet 1, tablet, By Mouth, 2 times a day, # 180 tablet, Refills 3, Maintenance, 02/10/23 15:08:00 EST, Route to Pharmacy Electronically, [facility] [id number], 178, cm, 02/03/23 11:28:00 EST, Height, 99.3, [...] 11/10/22 14:37:00 EDT, Route to Pharmacy Electronically, [facility] 60734, 178, cm, 10/15/22 8:07:00 EDT, Height, 99.3, kg, 08/22/22 14:01:00 EDT, Dry Weight Start Date: 11/10/22 Status: Ordered dorzolamide-timolol 2.23%-0.68% ophthalmic solution 1 drops, Eye, Right, 2 times a day Start Date: 11/19/21 Status: Ordered duloxetine 30 mg oral enteric coated capsule 1 capsule = 30 mg, By Mouth, Daily, start taking from 11/28/21, # 30 capsule, 0 Refills, Maintenance, 11/28/21 9:00:00 EDT, [facility], Partial fill upon patient request if the prescription is for a schedule II opioid drug., 187, cm, 10/0... Start Date: 11/28/21 Status: Ordered Eliquis 2.5 mg oral tablet 1 tablet = 2.5 mg, By Mouth, 2 times a day, # 60 tablet, 0 Refills, Maintenance, 08/09/23 8:46:00 EDT, Tablet, [facility], Partial fill upon patient request if the prescription is for aschedule II opioid drug., 185, cm, 08/09/23 6:22:00... Start Date: 08/09/23 Stop Date: 09/08/23 Status: Ordered furosemide 40 mg oral tablet See Instructions, 1 TABLET BY MOUTH EVERY TUESDAY, TUESDAY AND TUESDAY, # 39 tablet, Refills 1, Maintenance, 01/24/23 7:47:00 EST, Instructions Replace Required Details, Route to Pharmacy Electronically, [facility] STORE [id number], 178, cm, 10/15/22 8:07:00 EDT,... Start Date: 01/24/23 Status: Ordered gabapentin 300 mg oral capsule 900 mg, 3, capsule, By Mouth, 2 times a day, # 180 capsule, Refills 5, Tot. Refills 5, Maintenance,10/15/22 8:33:00 EDT, Route to Pharmacy Electronically, [facility]/pharmacy #[id number], 178, cm, 10/15/22 8:07:00 EDT, [...] Maintenance, 05/29/21 14:41:00 EDT, Tablet, [facility]/pharmacy #[id number], 186, cm, 05/29/21 14:1... Start Date: 05/29/21 Status: Ordered oxyCODONE 5 mg oral tablet See Instructions, PRN, Take 1-2 tablets every 4 hours as needed for moderate to severe pain., # 84 tablet, Refills 0, Tot. Refills 0, Acute 08/18/23 8:00:00 EDT, Pain , Moderate, 08/09/23 8:48:00 EDT, Instructions Replace Required Details, Route to Ph... Start Date: 08/09/23 Stop Date: 08/18/23 Status: Ordered pantoprazole 40 mg oral delayed release tablet 1 tablet = 40 mg, By Mouth, Daily, # 30 tablet, 0 Refills, Maintenance, 08/08/23 8:48:00 EDT, [facility] Tablet Start Date: 08/08/23 Status: Ordered Potassium Chloride (Eqv-K-Tab) 20 mEq oral tablet, extended release See Instructions, 2 TABLET BY MOUTH EVERY TUESDAY, TUESDAY AND TUESDAY, # 26 tablet, 0 Refills, Maintenance, 07/21/23 11:34:00 EDT, [id number], 186, cm, 06/21/23 15:46:00 EDT, Height, 102, kg, 06/21/23 15:46:00 EDT, Dry Weight Start Date: 07/21/23 Status: Ordered tadalafil 5 mg oral tablet [...] 11/24/21 11:13:00 EDT, Route to Pharmacy Electronically, [facility], Partial fill upon patient request if the prescription is for a schedule... Start Date: 11/24/21 Stop Date: 12/24/21 Status: Ordered traMADol 50 mg oral tablet See Instructions, PRN Pain , Mild, take 1-2 tablets every 6 hours as needed for mild pain. not to exceed 400 mg/day, # 56 tablet, 0 Refills, Acute 08/17/23 8:00:00 EDT, 08/09/23 8:49:00 EDT, Tablet, [facility], Partial fill upon patien... 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 Completed Vital Signs Most recent to oldest [Reference Range]: 1 Height 186 cm (08/02/23 1:13 PM) Weight 96.4 kg (08/02/23 1:13 PM) Oxygen Saturation [94-100 %] 100 % (08/02/23 1:13 PM) Pulse Rate [55-90 bpm] 76 bpm (08/02/23 1:13 PM) Body Mass Index [18.5-24.99 kg/m2] 27.86 kg/m2 *H* (08/02/23 1:13 PM) Blood Pressure [90-138/55-84 mm Hg] 138/ 59mm Hg (08/02/23 1:13 PM) Respiratory Rate [16-30 br/min] 18 br/mi n (08/02/23 1:13 PM) Blood pressure sites Arm, left (6/11/24 1:13 PM) Weight Obtained Via Standing scale (08/02/23 1:13 PM) Social History Social History Type Response Smoking Status Never smoker; Tobacc o user in household: No entered on: 09/03/14 Sex EKG study * Event Display: ECG 12-Lead Authored Date: Please click on pdf link to open report * Event Display: ECG 12-Lead Authored Date: Ventricular Rate: 71 BPM Atrial Rate: 71 BPM P-R Interval: 174 ms QRS Duration: 90 ms Q-T Interval: 440 ms QTC Calculation(Bazett): 478 ms P Acton: 42 degrees R Acton: -14 degrees T Acton: 61 degrees Normal sinus rhythm with sinus arrhythmia Right atrial enlargement Inferior infarct , age undetermined Cannot rule out Anterior infarct (cited on or before 02-AUG-2023) Abnormal ECG When compared with ECG of 11-FEB-2023 12:32, Premature ventricular complexes are no longer Present QT has lengthened Confirmed by Lonnie Bean ([id number]) on 08/02/2023 1:30:17 PM [place]: Lonnie Bean Patient Care team information Care Team Personnel Name: Christiano Hernandez RN Position: [facility] RN Member Role: Primary Care Nurse Name: Nova Soto RN Position: [facility] ED RN W/OE and Tasks Member Role: Primary Care Nurse Name: Larissa Griggs MD Position: [facility] Physician - Endocrinology Member Role: PCP Address: Address: [address] [place] [address] [place] [address]- Name: Zara Gongora [facility] [...] Member Role: Lifetime Consulting Physician Address: Address: [address] [place], [place] [address] [place] [address]- Name: Meseret Rosario RN Position: [facility] RN Member Role: Primary Care Nurse Name: Lonnie Rosario RN Position: [facility] RN Member Role: Primary Care Nurse Name: Kirby Zavala RN Position: [facility] RN Member Role: Primary Care Nurse Name: Jason Anand RN Position: [facility] RN Member Role: Primary Care Nurse Name: Jannette Boyer RN Position: [facility] AMB Nurse Member Role: Primary Care Nurse Name: Toby Shafer RN Position: [facility] RN Member Role: Primary Care Nurse Name: Lesa Oneill RN Position: [facility] RN Member Role: Primary Care Nurse Name: Sarina Del Rio RN Position: [facility] Onco RN Member Role: Primary Care Nurse Care Team Related Persons Name: TRINIDAD CRUMP Name: ELICIA BRONSON Address: home [address] [place] [address]
--- OUTSIDE RECORDS SUMMARY | 2024-01-13 12:03 | XMS_ITS | Continuity of Care Document ---
Author Organization [facility] ter Address [address] [place] [address]- Care Team Providers Care Men'S Garment Fitter Name Role Phone Eve Warren MD, Larissa Medina Primary Care Physic sophia Encounter [facility] [place] Date(s): 06/09/23 - 07/09/[address] [address] Attending Physician: Cristiano Prado Admitting Physician: AdmtrCristiano [...] EDT, [facility] #[id number], 186, cm, 06/21/23 15:46:00 EDT, Height, 102, kg, 06/21/23 15:46:00 EDT, Dry Weight Start Date: 06/30/23 Status: Ordered carvedilol 12.5 mg oral tablet 1, tablet, By Mouth, 2 times a day, # 180 tablet, Refills 3, Maintenance, 02/10/23 15:08:00 EST, Route to Pharmacy Electronically, [facility] [id number], 178, cm, 02/03/23 11:28:00 EST, Height, 99.3, [...] 11/10/22 14:37:00 EDT, Route to Pharmacy Electronically, [facility] 66606, 178, cm, 10/15/22 8:07:00 EDT, Height, 99.3, kg, 08/22/22 14:01:00 EDT, Dry Weight Start Date: 11/10/22 Status: Ordered dorzolamide-timolol 2.23%-0.68% ophthalmic solution 1 drops, Eye, Right, 2 times a day Start Date: 11/19/21 Status: Ordered duloxetine 30 mg oral enteric coated capsule 1 capsule = 30 mg, By Mouth, Daily, start taking from 11/28/21, # 30 capsule, 0 Refills, Maintenance, 11/28/21 9:00:00 EDT, [facility], Partial fill upon patient request if the prescription is for a schedule II opioid drug., 187, cm, 100... Start Date: 11/28/21 Status: Ordered furosemide 40 mg oral tablet See Instructions, 1 TABLET BY MOUTH EVERY TUESDAY, TUESDAY AND TUESDAY, # 39 tablet, Refills 1, Maintenance, 01/24/23 7:47:00 EST, Instructions Replace Required Details, Route to Pharmacy Electronically, [facility] 101[facility], 178, cm, 10/15/22 8:07:00 EDT,... Start Date: 01/24/23 Status: Ordered gabapentin 300 mg oral capsule 900 mg, 3, capsule, By Mouth, 2 times a day, # 180 capsule, Refills 5, Tot. Refills 5, Maintenance,10/15/22 8:33:00 EDT, Route to Pharmacy Electronically, [facility]/pharmacy #[id number], 178, cm, 10/15/22 8:07:00 EDT, Height, 99.3, kg, 08/22/22 14:01:00 EDT, Dry... Start Date: 10/15/22 Stop Date: 04/13/23 Status: Ordered gabapentin 300 mg oral capsule 900 mg, 3, capsule, By Mouth, 2 times a day, # 180 capsule, Refills 5, Tot. Refills 5, Maintenance,05/19/23 12:29:00 EDT, Route to Pharmacy Electronically, [facility] #[id number], 186, cm, 04/20/23 21:24:00 EST, Height, 95.5, kg, 04/20/23 21:24:... Start Date: 05/19/23 Stop Date: 11/15/23 Status: Ordered latanoprost 0.005% ophthalmic solution 1 drops, Eye, Right, Daily at bedtime, 0 Refills, Maintenance, 01/01/18 18:46:39 EST Start Date: 01/01/18 Status: Ordered lidocaine 5% topical film 2 patch, Topically, Daily, remove patches after 12 hours, # 30 patch, 0 Refills, Maintenance, 04/20/23 19:59:00 EST, Film, [facility]/pharmacy #0750, Partial fill upon patient request if the prescription isfor a schedule II opioid drug., 2 patch Topically D... Start Date: 04/20/23 Status: Ordered nitroglycerin 0.4 mg sublingual tablet 1 tablet = 0.4 mg, Sublingual, Every 5 minutes, PRN for chest pain, not to exceed 3 doses/15 min--if pain persists, seek medical attention, # 100 tablet, 1 Refills, Maintenance, 05/29/21 14:41:00 EDT, Tablet, [facility]/pharmacy #[id number], 186, cm, 05/29/21 14:1... Start Date: 05/29/21 Status: Ordered oxyCODONE 5 mg oral capsule 1 capsule = 5 mg, By Mouth, Every 6 hours, PRN for pain, # 28 capsule, 0 Refills, Maintenance, 04/20/23 19:53:00 EST, Capsule, [facility]/pharmacy #0750, Partial fill upon patient request if [...] Refills, Maintenance, 05/18/23 15:11:00 EDT, ER Tablet, [facility]/pharmacy #[id number], Partial fill upon patient request if the prescription is for a schedule II opioid drug., 186, c... Start Date: 05/18/23 Status: Ordered Potassium Chloride (Eqv-K-Tab) 20 mEq oral tablet, extended release See Instructions, 2 TABLET BY MOUTH EVERY TUESDAY, TUESDAY AND TUESDAY, # 26 tablet, 0 Refills, Maintenance, 05/30/23 13:43:00 EDT, [facility] [id number], 186, cm, 05/25/23 14:56:00 EDT, Height, 95.5, [...] 11/24/21 11:13:00 EDT, Route to Pharmacy Electronically, [facility], Partial fill upon [...] Team Personnel Name: Christiano Hernandez RN Position: [facility] RN Member Role: Primary Care Nurse Name: Nova Soto RN Position: [facility] ED RN W/OE and Tasks Member Role: Primary Care Nurse Name: Larissa Griggs MD Position: [facility] Physician - Endocrinology Member Role: PCP Address: Address: [address] [place] [address] [facility] [place] [address]- Name: Zara Gongora Position: [facility] Outreach Member Role: Lifetime Consulting Physician Name: China Gomez Position: [facility] RN Member Role: Primary Care Nurse Name: Arpit Davis RN Position: [facility] ED RN W/OE and Tasks Member Role: Primary Care Nurse Name: Gala Schwartz RN Position: S RN Member Role: Primary Care Nurse Name: Marc Sidhu DO Position: [facility] Renal MD Member Role: Lifetime Consulting Physician Address: Address: [address] [place] [address] [address] [facility] [place] [address]- Name: Lonnie Rosario RN Position: [facility] RN Member Role: Primary Care Nurse Name: Jason Anand RN Position: [facility] RN Member Role: Primary Care Nurse Name: Jannette Boyer RN Position: [facility] AMB Nurse Member Role: Primary Care Nurse Name: Toby Shafer RN Position: [facility] RN Member Role: Primary Care Nurse Name: Lesa Oneill RN Position: [facility] RN Member Role: Primary Care Nurse Name: Sarina Del Rio RN Position: [facility] Onco RN Member Role: Primary Care Nurse Care Team Related Persons Name: TRINIDAD CRUMP Name: ELICIA BRONSON Address: [address] [place] [address]
--- OUTSIDE RECORDS SUMMARY | 2024-01-13 12:03 | XMS_ITS | Continuity of Care Document ---
Author Organization [facility] ter Address [address] [place] [address]- Care Team Providers Care Licensed Mental Health Counselor Name Role Phone Eve Warren MD, Larissa Medina Primary Care Physic sophia Encounter [facility] Date(s): 08/22/22 - 08/22/[address] [address]- Encounter Diagnosis Left hip pain(Final) - 08/22/22 Discharge Disposition: A-D/C Home Attending Physician: Jasmyne Mcintosh DO Admitting Physician: Jasmyne Mcintosh DO Referring Physician: Not on Staff, Referring [...] tablet, 3 Refills, Maintenance, 11/03/21 16:31:00 EDT, [facility] ST[facility] [id number], 186, cm, 10/23/21 14:57:00 EDT, Height, 88.1, [...] 12/17/21 15:20:00 EDT, Route to Pharmacy Electronically, [facility]/pharmacy #[id number], Partial fill upon patient request if the prescription is for a schedule II... Start Date: 12/17/21 Stop Date: 12/12/22 Status: Ordered donepezil 5 mg oral tablet 1, tablet, By Mouth, Daily at bedtime, # 30 tablet, Refills 5, Maintenance, 07/30/22 16:18:00 EDT, Route to Pharmacy Electronically, [facility] [id number], 187, cm, 05/27/22 14:44:00 EDT, Height, 98, kg, 04/26/22 0:21:00 EST, Dry Weight Start Date: 07/30/22 Status: Ordered dorzolamide-timolol 2.23%-0.68% ophthalmic solution 1 drops, Eye, Right, 2 times a day Start Date: 11/19/21 Status: Ordered duloxetine 30 mg oral enteric coated capsule 1 capsule = 30 mg, By Mouth, Daily, start taking from 11/28/21, # 30 capsule, 0 Refills, Maintenance, 11/28/21 9:00:00 EDT, [facility], Partial fill upon patient [...] 08/19/22 14:52:00 EDT, Route to Pharmacy Electronically, [facility] [id number], 187, cm, 05/27/22 14:44:00 EDT, Height, 98, kg, 04/26/22 0:21:00 EST, Dry Weight Start Date: 08/19/22 Status: Ordered latanoprost 0.005% ophthalmic solution 1 drops, Eye, Right, Daily at bedtime, 0 Refills, Maintenance, 01/01/18 18:46:39 EST Start Date: 01/01/18 Status: Ordered morphine 15 mg oral tablet, immediate release 1 tablet = 15 mg, By Mouth, Every 8 hours, PRN as needed for pain, for 3 days, # 10 tablet, 0 Refills, Acute 08/25/22 16:26:00 EDT, 08/22/22 16:26:00 EDT, Tablet, [facility], Partial fill upon patient request if the prescription is for a... Start Date: 08/22/22 Stop Date: 08/25/22 Status: Ordered Multivitamin 1 tab, By Mouth, Daily, 0 Refills, Maintenance, 01/01/18 20:23:10 EST Start Date: 01/01/18 Status: Ordered naloxone 4 mg/0.1 mL nasal spray = 4 mg, Naris, Right, Once, may repeat every 2 to 3 minutes until patient responds, # 2 each, 0 Refills, Soft Stop, 08/22/22 16:30:00 EDT, [facility], Partial fill upon patient request if the prescription is for a schedule II opioid drug... Start Date: 08/22/22 Status: Ordered nitroglycerin 0.4 mg sublingual tablet 1 tablet = 0.4 mg, Sublingual, Every 5 minutes, PRN for chest pain, not to exceed 3 doses/15 min--if pain persists, seek medical attention, # 100 tablet, 1 Refills, Maintenance, 05/29/21 14:41:00 EDT, Tablet, [facility]/pharmacy #[id number], 186, cm, 05/29/21 14:1... Start Date: 05/29/21 Status: Ordered Potassium Chloride (Eqv-K-Tab) 20 mEq oral tablet, extended release 2 tablet = 40 mEq, By Mouth, Every Tuesday, Tuesday and Tuesday, Maintenance, 04/25/22 13:05:00 EST, Partial fill upon patient request if the prescription is for a schedule II opioid drug. Start Date: 04/25/22 Status: Ordered Senna 8.6 mg oral tablet 8.6 mg, 1, tablet, By Mouth, Daily at bedtime, for 14 days, # 14 tablet, Refills 0, Tot. Refills 0,Acute, 09/05/22 16:26:00 EDT, 08/22/22 16:26:00 EDT, Route to Pharmacy Electronically, [facility], Partial fill upon patient request if t... Start Date: 08/22/22 Stop Date: 09/05/22 Status: Ordered rocío stockings 15 to 20 [...] 11/24/21 11:13:00 EDT, Route to Pharmacy Electronically, [facility], Partial fill upon patient [...] Confirmed Active 1Problem added by Discern Expert Results Radiology Reports * Exam Date Time Procedure Performing Provider Status 08/22/22 3:50 PM XR Hip w/Pelvis 2-3 View Left Grace Carr (Verified) Notes: (XR Hip w/Pelvis 2-3 View Left) Reason For Exam: With Pain;Trauma RESULT: XR Hip w/Pelvis 2-3 View Left XR Hip w/Pelvis 2-3 View Left Hx of Present Illness: pt c o one week of L hip pain, pt reports injuries in the past but no recentinjury. pt had a cortisone injection on 07 16 with no relief. pt was taking Meloxicam for pain, stopped med due to blood in stools. pt had one small BM with bright red blood.; Reason: Trauma; With Pain; Clinical Question(s): Fracture COMPARISON: None. FINDINGS: There is no fracture or dislocation. Bilateral hip osteoarthritis, left worse than right. There is moderate narrowing of the joint spaces with subchondral sclerosis and osteophytes. Moderate degenerative changes in the left sacroiliac joint. There are numerous pelvic phleboliths. Surgical clips are seen in the visualized scrotum. IMPRESSION: Degenerative changes but no acute abnormality. WSN: [id number] Ordering Physician: Jasmyne Mcintosh Dictated By: Apryl Mills MD Dictated Date/Time: 08/22/22 4:01 pm Reviewed By: Apryl Mills MD Signed By: Apryl Mills MD Signed Date/Time: 08/22/22 4:01 pm Transcribed By: MY Transcribed Date/Time: 08/22/22 3:58 pm Vital Signs Most recent to oldest [Reference Range]: 1 2 3 Height 178 cm (08/22/22 2:01 PM) 178 cm (08/22/22 12:11 PM) Oxygen Saturation [94-100 %] 99 % (08/22/22 4:43 PM) 99 % (08/22/22 12:11 PM) 98 % (08/22/22 12:00 PM) Pulse Rate [55-90 bpm] 78 bpm (08/22/22 4:43 PM) 68 bpm (08/22/22 12:11 PM) 119 bpm *H* (08/22/22 12:00 PM) Blood Pressure [90-138/55-84 mm Hg] 158/88mm Hg *H* (08/22/22 4:43 PM) 161/89mm Hg *H* (08/22/22 12:11 PM) Respiratory Rate [16-30 br/min] 18 br/min (08/22/22 4:43 PM) 18 br/min (08/22/22 12:11 PM) Temperature [96.8-100.4 DegF] 98.4 DegF (08/22/22 4:43 PM) 98.2 DegF (08/22/22 12:11 PM) Mode of Delivery (Oxygen) Room air (08/22/22 4:43 PM) Room air (08/22/22 12:11 PM) Room air (08/22/22 12:00 PM) Blood pressure sites Arm, left (08/22/22 4:43 PM) Arm, left (08/22/22 12:11 PM) Temperature Route Oral (08/22/22 4:43 PM) Oral (08/22/22 12:11 PM) Dry Weight 99.3 kg (08/22/22 2:01 PM) 99.3 kg (08/22/22 12:11 PM) Dry Weight Obtained Via Standing scale (08/22/22 12:11 PM) Social History Social History Type Response Smoking Status Never smoker; Tobacc o user in household: No entered on: 09/03/14 Sex Note * Gayle Aguilar DO: PERFORM Event Display: Patient Education Leaflets Authored Date: [id number] Osteoarthritis ?? [id number] Osteoarthritis Osteoarthritis happens??when the cartilage in a joint becomes damaged and worn. This may be from age, wear and tear, overuse of the joint, obesity, or other problems. Osteoarthritis??can affect any joint, but it's most common in??hands, knees, spine, hips, and feet. Symptoms include joint stiffness, and pain. It's also called degenerative joint disease. Home care ??? When a joint is more sore than usual, rest it for 1 or 2 days. ??? Heat can help relieve stiffness. Take a hot bath or apply a heating pad for up to 30 minutes at a time. If symptoms are worse in the morning, using heat just after awakening can help relax the muscle and soothe the joints.? Ice helps relieve pain. It's often used after activity. Use a cold pack wrapped in a thin cloth on the joint for 10 to 15 minutes at a time.? Alternating hot and cold can also help relieve pain. Try this for 20 minutes at a time, several times per day. ??? Exercise helps prevent the muscles and ligaments around the joint from becoming weak.??It also helps maintain function in the joint.??Be as active as you can. Talk to your healthcare provider about what activity program is bestfor you. ??? Excess weight puts a lot of extra strain on weight-bearing joints of the lower back, hips, knees, feet, and ankles. If you are overweight, talk to your provider about a safe and effective weight loss program. ??? Use anti-inflammatory medicines as prescribed for pain. This includes acetaminophen or NSAIDs (nonsteroidal anti-inflammatory drugs) such as ibuprofen or naproxen. Don't take NSAIDs if your provider has told you that you can't take NSAIDS because of other health problems. If needed, topical or injected medicines may be advised. Talk with your provider if these choices aren't enough to manage your pain. Follow the directions on all xmos-kir-phstrxc medicines. If you're t aking NSAIDs routinely, talk to your provider. ??? Talk with your provider about devices that mighthelp improve your function and reduce pain. ??? Talk with your provider about physical therapy to help strengthen your joints and the nearby muscles. ?? Follow-up care Follow up with your healthcare provider, or as advised. ?? When to get medical advice Call your healthcare provider right away if any of the following occur: ??? Redness or swelling of a painful joint ??? Discharge or pus from a painful joint ??? Fever of??100.4??F (38??C)??or higher,or as directed by your healthcare provider ??? Joint pain that gets worse ??? Decreased ability to move the joint or bear weight on the joint ?? Last Reviewed Date: 2021 ?? 1843-7113 [employer]. All rights reserved. This information is not intended as a substitute for professional medical care. Always follow your healthcare professional's instructions. ?? * Gayle Aguilar DO Jillian: PERFORM Event Display: Patient Education Leaflets Authored Date: [id number] All About Arthritis ?? All About Arthritis - Video Arthritis refers to a group of disorders that involve the body???s joints and have similar symptoms, including pain, stiffness, and swelling. Learn about the different types of arthritis and their treatment. To view the video go to this web address: [email or web address] Or, scan this QR code with your smart phone Last Reviewed Date: 2019 ?? 2898-5197 [employer]. All rights reserved. This information is not intended as a substitute for professional medical care. Always follow your healthcare professional's instructions. ?? * Gayle Aguilar DO: PERFORM Event Display: Patient Education Leaflets Authored Date: [id number] Physical Therapy Referral ?? 250 ?? This page is FOR PRESCRIBERS Only, ? DO NOT GIVE TO THE PATIENT? Physical Therapy Referral Program for Management of Pain In an effort to reduce narcotic use, some of our ED patients will benefit from a direct [facility].?? [facility] will see INSURED patients and has a system in place to avoid sending follow up paperwork to the ED prescribers.? Note: Non-[facility] physical therapy services will probably NOT be able to handle ED generated PT referrals. ?? Patients should still follow up with their PCP as soon as possible regarding their ongoing care. Inform patients that [facility] care will discuss insurance when they call.?? Some insurance plans limit the amount of PT a patient can receive each year. ?? Complete the FIRST PAGE of the patient???s referral sheet. [place] or write in diagnosis Modify the timing for treatment, if needed List any major precautions (i.e.?? Non-weight bearing limb), if needed Sign, date and print your name at the bottom ? Physical Therapy Referral Form Patient Instructions: You are being referred to physical therapy.?? This form is your referral and MUST be brought to your appointment. You need to call to set up your appointment. ?? This form can be used at any [facility] Therapy location.?? A list of locations is attached.?? 1)?? DIAGNOSIS/ICD-10 ([place] one) Cervicalgia: M54.2 ? Strain of muscle, fascia and tendon at neck level: S16.1XXD? Radiculopathy, cervical region: M54.12? Mid back pain: M54.9 ? Low back pain:?? M54.5 Strain of muscle, fascia and tendon of lower back: S39.012D Radiculopathy, lumbosacral region: M54.17 Other:? 2)? [? ]? Evaluate and Treat 2 Times/Week for 4 weeks as needed [? ]?Other: 3)? [? ]? No Precautions [? ]?Precautions: ?? I hereby certify these services as medically necessary for the patient???s plan of care. Physician???s Signature Date Physician Name (printed)? Locations You can call any location below.?? Tell them you were seen in a [facility] Emergency Department and have a referral form.?? Remember to bring your referral form with you to the appointment. JOANNA Dukes [address]? JOANNA Webb [address] [place] [address], [address]? [address] Phone: [phone]? JOANNA [place]ter ? [place] [address]? [address] ? [place] [address]? [place] [address]? [address] ? [place] [address]? [place] [address]? [address]? [facility] ? [address] ? Patient Care team information Care Team Personnel Name: Christiano Hernandez RN Position: S RN Member Role: Primary Care Nurse Name: Nova Soto RN Position: [facility] ED RN W/OE and Tasks Member Role: Primary Care Nurse Name: Larissa Griggs MD Position: [facility] Physician - Endocrinology Member Role: PCP Address: Address: [address] [place] [address] [facility] [place] [address]- Name: Zara Gongora Position: S Outreach Member Role: Lifetime Consulting Physician Name: China Gomez Position: S RN Member Role: Primary Care Nurse Name: Arpit Davis RN Position: [facility] ED RN W/OE and Tasks Member Role: Primary Care Nurse Name: Gala Schwartz RN Position: S RN Member Role: Primary Care Nurse Name: Marc Sidhu DO Position: [facility] Renal MD Member Role: Lifetime Consulting Physician Address: Address: [address] [place] [address] [address] [facility] [place] [address]- Name: Abraham MURRELL, Lonnie Perry Position: [facility] RN Member Role: Primary Care Nurse Name: Jason Anand RN Position: [facility] RN Member Role: Primary Care Nurse Name: Quang MURRELL, Sarina Gandara Position: [facility] Onco RN Member Role: Primary Care Nurse Name: Emmie Vera Position: [facility] RN Member Role: Primary Care Nurse Name: Gayle Aguilar DO Position: [facility] Resident Member Role: ED Resident Address: Address: [address] [place] [address]- Name: Eloy Blevins RN Position: [facility] ED RN W/OE and Tasks Member Role: Patient Care Provider Name: Jasmyne Mcintosh DO Position: [facility] ED Medicine MD Member Role: Admitting Physician Address: Address: [address] [place] [address]- Care Team Related Persons Name: TRINIDAD CRUMP Name: ELICIA BRONSON Address: home [address] [place] [address]
--- OUTSIDE RECORDS SUMMARY | 2024-01-13 12:03 | XMS_ITS | Continuity of Care Document ---
Author Organization [facility] ter Address [address] [place] [address]- Care Team Providers Care Maintenance And Engineering Manager Name Role Phone Eve Warren MD, Larissa Medina Primary Care Physic sophia Encounter [facility] Date(s): 08/16/19 - 08/16/[address] [address]- [facility] Encounter Diagnosis Diarrhea(Final) - 08/16/19 Discharge Disposition: A-D/C Home Attending Physician: Kenneth Meza MD Admitting Physician: Kenneth Meza MD Referring Physician: Not on Staff, Referring MD Allergies, Adverse Reactions, Alerts Substance Reaction [...] 01/22/19 9:48:15 EST, Route to Pharmacy Electronically, [id number], [facility]/pharmacy #[id number] Start Date: 01/22/19 Stop Date: 01/17/20 Status: Ordered colchicine 0.6 mg oral tablet 0.6 mg, 1, tablet, By Mouth, Daily, Refills 0, Maintenance, 01/01/18 18:45:03 EST Start Date: 01/01/18 Status: Ordered Coreg 6.25 mg oral tablet 6.25 mg, 1, tablet, By Mouth, 2 times a day, # 60 tablet, Refills 11, Tot. Refills 11, Maintenance,02/01/19 9:26:07 EST, Route to Pharmacy Electronically, [id number], [facility]/pharmacy #[id number], 186, cm, 01/30/19 9:20:58 EST, Height... [...] 01/22/19 9:48:35 EST, Route to Pharmacy Electronically, [id number], [facility]/pharmacy #[id number] Start Date: 01/22/19 Stop Date: 01/17/20 Status: Ordered loperamide 2 mg oral tablet, chewable 1 tablet = 2 mg, Chew, 2 times a day, PRN for loose stool, # 20 tablet, 0 Refills, Maintenance, 08/16/19 18:31:00 EDT, Chew Tablet, [facility]/pharmacy #[id number], 1 tablet Chew 2 times [...] 1 Refills, Maintenance, 07/17/19 11:37:00 EDT, Tablet, [facility]/pharmacy #1070, 186, cm, 03/02/19 8:12... Start [...] artery disease(Confirmed) Active Hypertension(Confirmed) Active Hypokalemia(Confirmed) Active Vital Signs Most recent to oldest [Reference Range]: 1 2 Oxygen Saturation [94-100 %] 98 % (08/16/19 4:49 PM) 98 % (08/16/19 4:39 PM) Pulse Rate [55-90 bpm] 88 bpm (08/16/19 4:49 PM) 114 bpm *H* (08/16/19 4:39 PM) Blood Pressure [90-138/55-84 mm Hg] 175/ 80mm Hg *H* (08/16/19 4:49 PM) Respiratory Rate [16-30 br/min] 17 br/mi n (08/16/19 4:39 PM) Temperature [96.8-100.4 DegF] 98.7 DegF (08/16/19 4:49 PM) Mode of Delivery (Oxygen) Room air (08/16/19 4:49 PM) Blood pressure sites Arm, right (08/16/19 4:49 PM) Temperature Route Oral (08/16/19 4:49 PM) Social History Social History Type Response Smoking Status Never smoker; Tobacc o user in household: No entered on: 09/03/14 Sex
--- OUTSIDE RECORDS SUMMARY | 2024-01-13 12:03 | XMS_ITS | Continuity of Care Document ---
Author Organization [facility] Address [address] [place] [address]- Care Team Providers Care Legal Operations Manager Name Role Phone Eve Warren MD, Larissa Medina Primary Care Physic sophia Encounter [facility] Date(s): 12/17/21 - 01/16/22 [facility] [address] [place] [address]- [place] Allergies, Adverse Reactions, Alerts No Known [...] 3 Refills, Maintenance, 12/17/21 15:20:00 EDT, Tablet, [facility]/pharmacy #[id number], Partial fill upon patient request [...] tablet, 3 Refills, Maintenance, 11/03/21 16:31:00 EDT, [facility] 29813, 186, cm, 10/23/21 14:57:00 EDT, Height, 88.1, [...] 12/17/21 15:20:00 EDT, Route to Pharmacy Electronically, [facility]/pharmacy #[id number], Partial fill upon patient request [...] capsule, 0 Refills, Maintenance, 11/28/21 9:00:00 EDT, [facility], Partial fill upon patient request if the prescription is for a schedule II opioid drug., 187, cm, 10/0... Start Date: 11/28/21 Status: Ordered gabapentin 300 mg oral capsule [...] 1 Refills, Maintenance, 05/29/21 14:41:00 EDT, Tablet, [facility]/pharmacy #1070, 186, cm, 05/29/21 14:1... Start Date: 05/29/21 Status: Ordered oxyCODONE 5 mg oral tablet 7.5 mg, 1.5, tablet, By Mouth, 3 times a day, Refills 0, Tot. Refills 0 Start Date: 11/19/21 Status: Ordered rocío stockings 15 to 20 [...] 11/24/21 11:13:00 EDT, Route to Pharmacy Electronically, [facility], Partial fill upon patient request [...] Team Personnel Name: Elva Briseno RN Position: [facility] RN Member Role: Primary Care Nurse Name: Christiano Hernandez RN Position: [facility] RN Member Role: Primary Care Nurse Name: Nova Soto RN Position: [facility] ED RN W/OE and Tasks Member Role: Primary Care Nurse Name: Larissa Griggs MD Position: [facility] Physician (General Medicine) Member Role: PCP Address: Address: [address] [place] [address] [place] [address]- Name: Zara Gongora Position: [facility] Outreach Member Role: Lifetime Consulting Physician Name: China Gomez Position: [facility] RN Member Role: Primary Care Nurse Name: Arpit Davis RN Position: [facility] ED RN W/OE and Tasks Member Role: Primary Care Nurse Name: Gala Schwartz RN Position: S RN Member Role: Primary Care Nurse Name: Marc Sidhu DO Position: [facility] Renal MD Member Role: Lifetime Consulting Physician Address: Address: [address] [place] [address] [address] [facility] [place] [address]- Name: Jannette Boyer RN Position: S RN Member Role: Primary Care Nurse Name: Sarina Del Rio RN Position: [facility] Onco RN Member Role: Primary Care Nurse Care Team Related Persons Name: TRINIDAD CRUMP Name: ELICIA BRONSON Address: home [address] [place] [address]
--- OUTSIDE RECORDS SUMMARY | 2024-01-13 12:03 | XMS_ITS | Continuity of Care Document ---
Author Organization [facility] Address [address] [place] [address]- Care Team Providers Care Lending Activities Supervisor Name Role Phone Eve Warren MD, Larissa Medina Primary Care Physic sophia Encounter [facility] Date(s): 06/15/22 - 07/15/[address] [address]- Attending Physician: Cristiano Prado Admitting Physician: AdmtrCristiano [...] 3 Refills, Maintenance, 12/17/21 15:20:00 EDT, Tablet, [facility]/pharmacy #[id number], Partial fill upon patient request [...] tablet, 3 Refills, Maintenance, 11/03/21 16:31:00 EDT, [facility] STORE [id number], 186, cm, 10/23/21 14:57:00 EDT, Height, 88.1, [...] 12/17/21 15:20:00 EDT, Route to Pharmacy Electronically, [facility]/pharmacy #[id number], Partial fill upon patient request if the prescription is for a schedule II... Start Date: 12/17/21 Stop Date: 12/12/22 Status: Ordered donepezil 5 mg oral tablet 5 mg, 1, tablet, By Mouth, Daily at bedtime, # 30 tablet, Refills 1, Tot. Refills 1, Maintenance, 07/05/22 10:14:00 EDT, Route to Pharmacy Electronically, [facility]/pharmacy #[id number], Partial fill upon patient request if the prescription is for a schedule II o... Start Date: 07/05/22 Status: Ordered dorzolamide-timolol 2.23%-0.68% ophthalmic solution 1 drops, Eye, Right, 2 times a day Start Date: 11/19/21 Status: Ordered duloxetine 30 mg oral enteric coated capsule 1 capsule = 30 mg, By Mouth, Daily, start taking from 11/28/21, # 30 capsule, 0 Refills, Maintenance, 11/28/21 9:00:00 EDT, [facility], Partial fill upon patient request [...] Maintenance,02/10/22 15:57:00 EST, Route to Pharmacy Electronically, [facility]/pharmacy #[id number], Partial fill upon patient request [...] 1 Refills, Maintenance, 05/29/21 14:41:00 EDT, Tablet, [facility]/pharmacy #[id number], 186, cm, 05/29/21 14:1... Start [...] 11/24/21 11:13:00 EDT, Route to Pharmacy Electronically, [facility], Partial fill upon patient [...] Team Personnel Name: Christiano Hernandez RN Position: [facility] RN Member Role: Primary Care Nurse Name: Nova Soto RN Position: [facility] ED RN W/OE and Tasks Member Role: Primary Care Nurse Name: Larissa rGiggs MD Position: [facility] Physician (General Medicine) Member Role: PCP Address: Address: [address] [place] [address] [facility] [place] [address]- Name: Zara Gongora Position: [facility] Outreach Member Role: Lifetime Consulting Physician Name: China Gomez Position: [facility] RN Member Role: Primary Care Nurse Name: Arpit Davis RN Position: [facility] ED RN W/OE and Tasks Member Role: Primary Care Nurse Name: Gala Schwartz RN Position: [facility] RN Member Role: Primary Care Nurse Name: Marc Sidhu DO Position: [facility] Renal MD Member Role: Lifetime Consulting Physician Address: Address: [address] [place] [address] [address] [facility] [place] [address]- Name: Abraham MURRELL, Lonnie Perry Position: [facility] RN Member Role: Primary Care Nurse Name: Jason Anand RN Position: [facility] RN Member Role: Primary Care Nurse Name: Quang MURRELL, Sarina Gandara Position: [facility] Onco RN Member Role: Primary Care Nurse Name: Emmie Vera Position: [facility] RN Member Role: Primary Care Nurse Care Team Related Persons Name: TRINIDAD CRUMP Name: ELICIA BRONSON Address: home [address] [place] [address]
--- OUTSIDE RECORDS SUMMARY | 2024-01-13 12:03 | XMS_ITS | Continuity of Care Document ---
Author Organization [facility] Address [address] [place] [address]- Care Team Providers Care Dry Charge Process Attendant Name Role Phone Eve Warren MD, Larissa Medina Primary Care Physic sophia Encounter [facility] [place] [place] Date(s): 11/27/21 - 12/27/[address] [address]- Allergies, Adverse Reactions, Alerts No Known Allergies [...] 3 Refills, Maintenance, 12/17/21 15:20:00 EDT, Tablet, [facility]/pharmacy #[id number], Partial fill upon patient [...] tablet, 3 Refills, Maintenance, 11/03/21 16:31:00 EDT, [facility] STORE [id number], 186, cm, 10/23/21 14:57:00 EDT, Height, 88.1, kg, 07/01/21 14:48:00 EDT, Dry Weight Start Date: 11/03/21 Status: Ordered Coreg 12.5 mg oral tablet 12.5 mg, 1, tablet, By Mouth, 2 times a day, # 180 tablet, Refills 3, Tot. Refills 3, Maintenance, 12/17/21 15:20:00 EDT, Route to Pharmacy Electronically, [facility]/pharmacy #[id number], Partial fill upon patient [...] capsule, 0 Refills, Maintenance, 11/28/21 9:00:00 EDT, [facility], Partial fill upon patient [...] 1 Refills, Maintenance, 05/29/21 14:41:00 EDT, Tablet, [facility]/pharmacy #[id number], 186, cm, 05/29/21 [...] 11/24/21 11:13:00 EDT, Route to Pharmacy Electronically, [facility], Partial fill upon patient [...] on: 09/03/14 Sex Patient Care team information Personnel Name: Eve Warren MD, Larissa Medina Address: Address: [address] [place] [address] [facility] [place], [place] [address]
--- OUTSIDE RECORDS SUMMARY | 2024-01-13 12:03 | XMS_ITS | Continuity of Care Document ---
Author Organization [facility] Address Unknown Care Team Providers Care Timber Hewer Name Role Phone Eve Warren MD, Larissa Medina Primary Care Physic sophia [id number] Date(s): 02/27/21 - 03/29/21 [facility] Allergies, Adverse Reactions, Alerts No Known Allergies [...] 3 Refills, Maintenance, 02/04/21 14:50:00 EST, Tablet, [facility]/pharmacy #[id number], 186, cm, 11/27/20 13:22:00 EDT, Height [...] 05/02/20 13:32:00 EST, Route to Pharmacy Electronically, [facility]/pharmacy #[id number], Partial fill upon patient request if [...] capsule, Refills 5, Route to Pharmacy Electronically, [facility] STORE 12659, 186, cm, 11/27/20 13:22:00 EDT, Height Start [...] 01/05/21 13:15:00 EST, Route to Pharmacy Electronically, [facility]/pharmacy #[id number], 186, cm, 11/27/20 13:22:00 EDT, Height Start Date: 01/05/21 Stop Date: 12/31/21 Status: Ordered loperamide 2 mg oral tablet, chewable 1 tablet = 2 mg, Chew, 2 times a day, PRN for loose stool, # 20 tablet, 0 Refills, Maintenance, 08/16/19 18:31:00 EDT, Chew Tablet, [facility]/pharmacy #[id number], 1 tablet Chew 2 times a [...] 1 Refills, Maintenance, 07/17/19 11:37:00 EDT, Tablet, [facility]/pharmacy #[id number], 186, cm, 03/02/19 8:12... Start Date: [...]
--- OUTSIDE RECORDS SUMMARY | 2024-01-13 12:03 | XMS_ITS | Continuity of Care Document ---
Author Organization [facility] Address [address] [place] [address]- Care Team Providers Care Inspector Aligning Name Role Phone Eve Warren MD, Larissa Medina Primary Care Physic sophia Encounter [facility] Date(s): 11/10/22 - 01/09/23 [facility] [address] [place], [place] [address] Attending Physician: Vadim Crouch MD Admitting Physician: Vadim Crouch MD Referring Physician: Dante Thompson MD Allergies, [...] Refills, Maintenance, 12/14/22 7:57:00 EDT, [facility] STORE [id number], 178, cm, 10/15/22 8:07:00 EDT, Height, 99.3, [...] tablet, 3 Refills, Maintenance, 11/22/22 7:50:00 EDT, [facility] STORE 94237, 178, cm, 10/15/22 8:07:00 EDT, Height, 99.3, kg, 08/22/22 14:01:00 EDT, Dry Weight Start Date: 11/22/22 Status: Ordered CeleBREX 50 mg oral capsule [...] 12/17/21 15:20:00 EDT, Route to Pharmacy Electronically, [facility]/pharmacy #[id number], Partial fill upon patient request if the prescription is for a schedule II... Start Date: 12/17/21 Stop Date: 12/12/22 Status: Ordered donepezil 5 mg oral tablet 1, tablet, By Mouth, Daily at bedtime, # 90 tablet, Refills 1, Maintenance, 11/10/22 14:37:00 EDT, Route to Pharmacy Electronically, [facility] STORE 62590, 178, cm, 10/15/22 8:07:00 EDT, Height, 99.3, kg, 08/22/22 14:01:00 EDT, Dry Weight Start Date: 11/10/22 Status: Ordered dorzolamide-timolol 2.23%-0.68% ophthalmic solution 1 drops, Eye, Right, 2 times a day Start Date: 11/19/21 Status: Ordered duloxetine 30 mg oral enteric coated capsule 1 capsule = 30 mg, By Mouth, Daily, start taking from 11/28/21, # 30 capsule, 0 Refills, Maintenance, 11/28/21 9:00:00 EDT, [facility], Partial fill upon patient request if the prescription is for a schedule II opioid drug., 187, cm, 10/0... Start Date: 11/28/21 Status: Ordered furosemide 40 mg oral tablet 40 mg, 1, tablet, By Mouth, Every Tuesday, Tuesday and Tuesday, # 13 tablet, Refills 3, Tot. Refills 3, Maintenance, 09/20/22 16:42:00 EDT, Route to Pharmacy Electronically, [facility]/pharmacy #[id number], Partial fill upon patient request if the prescription is... Start Date: 09/20/22 Status: Ordered gabapentin 300 mg oral capsule [...] 0 Refills, Soft Stop, 08/22/22 16:30:00 EDT, [facility], Partial fill upon patient request [...] 11/24/21 11:13:00 EDT, Route to Pharmacy Electronically, [facility], Partial fill upon [...] Team Personnel Name: Christiano Hernandez RN Position: [facility] RN Member Role: Primary Care Nurse Name: Nova Soto RN Position: [facility] ED RN W/OE and Tasks Member Role: Primary Care Nurse Name: Larissa Griggs MD Position: [facility] Physician - Endocrinology Member Role: PCP Address: Address: [address] [place] [address] [facility] [place], [place] [address] Name: Zara Gongora Position: [facility] Outreach Member Role: Lifetime Consulting Physician Name: China Gomez Position: [facility] RN Member Role: Primary Care Nurse Name: Arpit Davis RN Position: [facility] ED RN W/OE and Tasks Member Role: Primary Care Nurse Name: Gala Schwartz RN Position: [facility] RN Member Role: Primary Care Nurse Name: Marc Sidhu DO Position: [facility] Renal MD Member Role: Lifetime Consulting Physician Address: Address: [address] [place] [address] [address] [facility] [place] [address]- Name: Lonnie Rosario RN Position: [facility] RN Member Role: Primary Care Nurse Name: Jason Anand RN Position: S RN Member Role: Primary Care Nurse Name: Jannette Boyer RN Position: [facility] SN RN Member Role: Primary Care Nurse Name: Sarina Del Rio RN Position: [facility] Onco RN Member Role: Primary Care Nurse Care Team Related Persons Name: ALISIA TRINIDAD Name: ELICIA BRONSON Address: home [address] [place] [address]
--- OUTSIDE RECORDS SUMMARY | 2024-01-13 12:03 | XMS_ITS | Continuity of Care Document ---
Author Organization [facility] Address [address] [place] [address]- Care Team Providers Care Armored Car Messenger Name Role Phone Eve Warren MD, Larissa Medina Primary Care Physic sophia Encounter [facility] Date(s): 09/20/22 - 10/20/22 [facility] [address] [place] [address] [place] Allergies, Adverse Reactions, Alerts No Known [...] tablet, 3 Refills, Maintenance, 11/03/21 16:31:00 EDT, [facility] STORE 53366, 186, cm, 10/23/21 14:57:00 EDT, Height, 88.1, kg, 07/01/21 14:48:00 EDT, Dry Weight Start Date: 11/03/21 Status: Ordered CeleBREX 50 mg oral capsule [...] 12/17/21 15:20:00 EDT, Route to Pharmacy Electronically, [facility]/pharmacy #[id number], Partial fill upon patient request if the prescription is for a schedule II... Start Date: 12/17/21 Stop Date: 12/12/22 Status: Ordered donepezil 5 mg oral tablet 1, tablet, By Mouth, Daily at bedtime, # 30 tablet, Refills 5, Maintenance, 07/30/22 16:18:00 EDT, Route to Pharmacy Electronically, [facility] STORE 27412, 187, cm, 05/27/22 14:44:00 EDT, Height, 98, kg, 04/26/22 0:21:00 EST, Dry Weight Start Date: 07/30/22 Status: Ordered dorzolamide-timolol 2.23%-0.68% ophthalmic solution 1 drops, Eye, Right, 2 times a day Start Date: 11/19/21 Status: Ordered duloxetine 30 mg oral enteric coated capsule 1 capsule = 30 mg, By Mouth, Daily, start taking from 11/28/21, # 30 capsule, 0 Refills, Maintenance, 11/28/21 9:00:00 EDT, [facility], Partial fill upon patient request if the prescription is for a schedule II opioid drug., 187, cm, 10/0... Start Date: 11/28/21 Status: Ordered furosemide 40 mg oral tablet 40 mg, 1, tablet, By Mouth, Every Tuesday, Tuesday and Tuesday, # 13 tablet, Refills 3, Tot. Refills 3, Maintenance, 09/20/22 16:42:00 EDT, Route to Pharmacy Electronically, [facility]/pharmacy #[id number], Partial fill upon patient request if the prescription is... Start Date: 09/20/22 Status: Ordered gabapentin 300 mg oral capsule 900 mg, 3, capsule, By Mouth, 2 times a day, # 180 capsule, Refills 5, Tot. Refills 5, Maintenance,10/15/22 8:33:00 EDT, Route to Pharmacy Electronically, [facility]/pharmacy #[id number], 178, cm, 10/15/22 8:07:00 EDT, [...] 0 Refills, Soft Stop, 08/22/22 16:30:00 EDT, [facility], Partial fill upon patient request if the prescription is for a schedule II opioid drug... Start Date: 08/22/22 Status: Ordered nitroglycerin 0.4 mg sublingual tablet 1 tablet = 0.4 mg, Sublingual, Every 5 minutes, PRN for chest pain, not to exceed 3 doses/15 min--if pain persists, seek medical attention, # 100 tablet, 1 Refills, Maintenance, 05/29/21 14:41:00 EDT, Tablet, [facility]/pharmacy #[id number], 186, cm, 05/29/21 14:1... Start [...] 11/24/21 11:13:00 EDT, Route to Pharmacy Electronically, [facility] 3, Partial fill upon patient request [...] Team Personnel Name: Christiano Hernandez RN Position: [facility] RN Member Role: Primary Care Nurse Name: Nova Soto RN Position: [facility] ED RN W/OE and Tasks Member Role: Primary Care Nurse Name: Larissa Griggs MD Position: [facility] Physician - Endocrinology Member Role: PCP Address: Address: [address] [place] [address] [facility] [place], [place] [address] Name: Zara Gongora Position: [facility] Outreach Member Role: Lifetime Consulting Physician Name: China Gomez Position: [facility] RN Member Role: Primary Care Nurse Name: Arpit Davis RN Position: [facility] ED RN W/OE and Tasks Member Role: Primary Care Nurse Name: Gala Schwartz RN Position: [facility] RN Member Role: Primary Care Nurse Name: Marc Sihdu DO Position: [facility] Renal MD Member Role: Lifetime Consulting Physician Address: Address: [address] [place], [place] [address] [place] [address]- Name: Lonnie Rosario RN Position: [facility] RN Member Role: Primary Care Nurse Name: Jason Anand RN Position: S RN Member Role: Primary Care Nurse Name: Jannette Boyer RN Position: [facility] SN RN Member Role: Primary Care Nurse Name: Sarina Del Rio RN Position: [facility] Onco RN Member Role: Primary Care Nurse Care Team Related Persons Name: ALISIA TRINIDAD Name: ELICIA BRONSON Address: [place] [address]
--- OUTSIDE RECORDS SUMMARY | 2024-01-13 12:03 | XMS_ITS | Continuity of Care Document ---
Author Organization [facility] Address [address] [place] [address]- Care Team Providers Care Linen Room Custodian Name Role Phone Larissa Griggs MD Primary Care Physic sophia Encounter [facility] [place] Date(s): 12/28/21 - 01/04/22 [facility] [address] [place] [address]- Attending Physician: Janell Kovacs MD Admitting Physician: Janell Kovacs MD Referring Physician: Larissa Griggs MD Allergies, Adverse [...] tablet, 3 Refills, Maintenance, 11/03/21 16:31:00 EDT, [facility] STORE 60549, 186, cm, 10/23/21 14:57:00 EDT, Height, 88.1, kg, 07/01/21 14:48:00 EDT, Dry Weight Start Date: 11/03/21 Status: Ordered Coreg 12.5 mg oral tablet 12.5 mg, 1, tablet, By Mouth, 2 times a day, # 180 tablet, Refills 3, Tot. Refills 3, Maintenance, 12/17/21 15:20:00 EDT, Route to Pharmacy Electronically, [facility]/pharmacy #[id number], Partial fill upon patient [...] capsule, 0 Refills, Maintenance, 11/28/21 9:00:00 EDT, [facility], Partial fill upon patient [...] 1 Refills, Maintenance, 05/29/21 14:41:00 EDT, Tablet, [facility]/pharmacy #[id number], 186, cm, 05/29/21 14:1... [...] 11/24/21 11:13:00 EDT, Route to Pharmacy Electronically, [facility], Partial fill upon patient [...] oldest [Reference Range]: 1 Height 187 cm (12/28/21 1:40 PM) Weight 86.1 kg (12/28/21 1:40 PM) Oxygen Saturation [94-100 %] 98 % (12/28/21 1:40 PM) Pulse Rate [55-90 bpm] 65 bpm (12/28/21 1:40 PM) Body Mass Index [18.5-24.99 kg/m2] 24.62 kg/m2 (12/28/21 1:40 PM) Blood Pressure [90-138/55-84 mm Hg] 147/ 64mm Hg *H* (12/28/21 1:40 PM) Blood pressure sites Arm, left (12/28/21 1:40 PM) Weight Obtained Via Bed scale (12/28/21 1:40 PM) Social History Social History Type Response Smoking Status Never smoker; Tobacc o user in household: No entered on: 09/03/14 Sex Patient Care team information Care Team Personnel Name: Elva Briseno RN Position: [facility] RN Member Role: Primary Care Nurse Name: Christiano Hernandez RN Position: [facility] RN Member Role: Primary Care Nurse Name: Nova Soto RN Position: [facility] ED RN W/OE and Tasks Member Role: Primary Care Nurse Name: Larissa Griggs MD Position: [facility] Physician (General Medicine) Member Role: PCP Address: Address: [address] [place] [address] [facility] [address] Name: Zara Gongora Position: [facility] Outreach Member Role: Lifetime Consulting Physician Name: China Gomez Position: [facility] RN Member Role: Primary Care Nurse Name: Arpit Davis RN Position: [facility] ED RN W/OE and Tasks Member Role: Primary Care Nurse Name: Gala Schwartz RN Position: [facility] RN Member Role: Primary Care Nurse Name: Marc Sidhu DO Position: [facility] Renal MD Member Role: Lifetime Consulting Physician Address: Address: [address] [place], [place] [address] [place], [place] [address] Name: Jannette Boyer RN Position: [facility] RN Member Role: Primary Care Nurse Name: Quang MURRELL, Sarina Gandara Position: [facility] Onco RN Member Role: Primary Care Nurse Care Team Related Persons Name: TRINIDAD CRUMP Name: ELICIA BRONSON Address: [place] [address]
--- OUTSIDE RECORDS SUMMARY | 2024-01-13 12:03 | XMS_ITS | Continuity of Care Document ---
Author Organization [facility] Address [address] [place] [address]- Care Team Providers Care Conduit Installer Name Role Phone Larissa Griggs MD Primary Care Physic sophia En[place] [facility] [place](s): 08/21/21 - 12/19/21 [facility] [address] [place] [address]- Attending Physician: Isidoro Marx MD Referring Physician: Larissa Griggs MD Allergies, [...] 3 Refills, Maintenance, 12/17/21 15:20:00 EDT, Tablet, [facility]/pharmacy #[id number], Partial fill upon patient request if [...] 3 Refills, Maintenance, 11/03/21 16:31:00 EDT, [facility] STORE [id number], 186, cm, 10/23/21 14:57:00 EDT, Height, 88.1, kg, 07/01/21 14:48:00 EDT, Dry Weight Start Date: 11/03/21 Status: Ordered Coreg 12.5 mg oral tablet 12.5 mg, 1, tablet, By Mouth, 2 times a day, # 180 tablet, Refills 3, Tot. Refills 3, Maintenance, 12/17/21 15:20:00 EDT, Route to Pharmacy Electronically, [facility]/pharmacy #[id number], Partial fill upon patient request if [...] capsule, 0 Refills, Maintenance, 11/28/21 9:00:00 EDT, [facility], Partial fill upon patient request [...] Refills, Maintenance, 05/29/21 14:41:00 EDT, Tablet, [facility]/pharmacy #[id number], 186, cm, 05/29/21 14:1... Start Date: [...] 11/24/21 11:13:00 EDT, Route to Pharmacy Electronically, [facility], Partial fill upon patient request [...] Eve Warren MD, Larissa Medina Address: Address: [address] [place] [address] [facility] [place], [place] [address]
--- OUTSIDE RECORDS SUMMARY | 2024-01-13 12:03 | XMS_ITS | Continuity of Care Document ---
Author Organization [facility] Address [address] [place] [id number]- Care Team Providers Care Environmental Research Scientist Name Role Phone Eve Warren MD, Larissa Medina Primary Care Physic sophia [place] [facility] [place] 05/02/20 - 05/09/20 [facility] [address] [place] [id number]- Encounter Diagnosis Coronary artery disease(Discharge Diagnosis) - 05/02/20 Hypertension(Discharge Diagnosis) - 05/02/20 Hypokalemia(Discharge Diagnosis) - 05/02/20 Attending Physician: Isidoro Marx MD Referring Physician: Larissa Griggs MD Allergies, Adverse Reactions, Alerts Substance Reaction [...] 3 Refills, Maintenance, 02/12/20 11:35:00 EST, Tablet, [id number], 186, cm, 10/19/19 15:51:00 EDT, Height, 97, [...] 05/02/20 13:32:00 EST, Route to Pharmacy Electronically, [facility]/pharmacy #[id number], Partial fill upon patient request [...] 02/07/20 14:17:00 EST, Route to Pharmacy Electronically, [facility]/pharmacy #[id number], Partial fill upon patient request [...] By Mouth, Daily, # 30 tablet, Refills 11 Tot. Refills 11, Maintenance, 01/15/20 14:41:00 EST, Route to Pharmacy Electronically, [facility]/pharmacy #[id number], 186, cm, 10/19/19 15:51:00 EDT, Height, 97, kg, 06/16/18 9:43:00 EDT, Dry Weight Start Date: 01/15/20 Stop Date: 01/09/21 Status: Ordered loperamide 2 mg oral tablet, chewable 1 tablet = 2 mg, Chew, 2 times a day, PRN for loose stool, # 20 tablet, 0 Refills, Maintenance, 08/16/19 18:31:00 EDT, Chew Tablet, [facility]/pharmacy #[id number], 1 tablet Chew 2 times a day,PRN:for loose stool, 186, cm, 03/02/19 8:12:00 EST, Height, 97, kg, ... Start Date: 08/16/19 Status: Ordered Multivitamin 1 tab, By Mouth, Daily, 0 Refills, Maintenance, 01/01/18 20:23:10 EST Start Date: 01/01/18 Status: Ordered nitroglycerin 0.4 mg sublingual tablet 1 tablet = 0.4 mg, Sublingual, Every 5 minutes, PRN for chest pain, not to exceed 3 doses/15 min--if pain persists, seek medical attention, # 100 tablet, 1 Refills, Maintenance, 07/17/19 11:37:00 EDT, Tablet, [facility]/pharmacy #[id number], 186, cm, 03/02/19 8:12... Start [...] 0 Refills, Maintenance, 08/16/19 18:31:00 EDT, Tablet, [facility]/pharmacy #[id number], 186, cm, 03/02/19 8:12:00 EST, Height, 97, kg, 06/16/18 9:43:00 EDT, Dry Weight Start Date: 08/16/19 Status: Ordered Problem List Condition Effective Dates Status Health Status Inform ant Coronary artery disease(Confirmed) Active Hypertension(Confirmed) Active Hypokalemia(Confirmed) Active Diagnosis Diagnosis Type Effective Dates Health Status Clinical Service Informant Coronary artery disease Discharge Diagnosis 05/02/20 Hypertension Discharge Diagnosis 05/02/20 Hypokalemia Discharge Diagnosis 05/02/20 Social History Social History Type Response Smoking Status Never smoker; Tobacc o user in household: No entered on: 09/03/14 Sex
--- OUTSIDE RECORDS SUMMARY | 2024-01-13 12:03 | XMS_ITS | Continuity of Care Document ---
Author Organization [facility] Address [address] [facility], [address] d Floor, [address] [place] [id number]- Care Team Providers Care Ramp Service Employee Name Role Phone Eve Warren MD, Larissa Medina Primary Care Physic vivek Encounter [facility] [place] Date(s): 01/19/23 - 05/19/23 [facility] [address], [address] [place] [address]- Attending Physician: Vivek Mcfarlane MD Admitting Physician: Vivek Mcfarlane MD Allergies, Adverse Reactions, Alerts No Known [...] Refills, Maintenance, 11/22/22 7:50:00 EDT, [id number], 178, cm, 10/15/22 8:07:00 EDT, Height, 99.3, kg, 08/22/22 14:01:00 EDT, Dry Weight Start Date: 11/22/22 Status: Ordered carvedilol 12.5 mg oral tablet 1, tablet, By Mouth, 2 times a day, # 180 tablet, Refills 3, Maintenance, 02/10/23 15:08:00 EST, Route to Pharmacy Electronically, [facility], 178, cm, 02/03/23 11:28:00 EST, Height, 99.3, [...] 11/10/22 14:37:00 EDT, Route to Pharmacy Electronically, [facility], 178, cm, 10/15/22 8:07:00 EDT, Height, 99.3, kg, 08/22/22 14:01:00 EDT, Dry Weight Start Date: 11/10/22 Status: Ordered dorzolamide-timolol 2.23%-0.68% ophthalmic solution 1 drops, Eye, Right, 2 times a day Start Date: 11/19/21 Status: Ordered duloxetine 30 mg oral enteric coated capsule 1 capsule = 30 mg, By Mouth, Daily, start taking from 11/28/21, # 30 capsule, 0 Refills, Maintenance, 11/28/21 9:00:00 EDT, [facility], Partial fill upon patient request if the prescription is for a schedule II opioid drug., 187, cm, 0... Start Date: 11/28/21 Status: Ordered furosemide 40 mg oral tablet See Instructions, 1 TABLET BY MOUTH EVERY TUESDAY, TUESDAY AND TUESDAY, # 39 tablet, Refills 1, Maintenance, 01/24/23 7:47:00 EST, Instructions Replace Required Details, Route to Pharmacy Electronically, [id number], 178, cm, 10/15/22 8:07:00 EDT,... Start Date: 01/24/23 Status: Ordered gabapentin 300 mg oral capsule 900 mg, 3, capsule, By Mouth, 2 times a day, # 180 capsule, Refills 5, Tot. Refills 5, Maintenance,10/15/22 8:33:00 EDT, Route to Pharmacy Electronically, [facility]/pharmacy #[id number], 178, cm, 10/15/22 8:07:00 EDT, Height, 99.3, kg, 08/22/22 14:01:00 EDT, Dry... Start Date: 10/15/22 Stop Date: 04/13/23 Status: Ordered gabapentin 300 mg oral capsule 900 mg, 3, capsule, By Mouth, 2 times a day, # 180 capsule, Refills 5, Tot. Refills 5, Maintenance,05/19/23 12:29:00 EDT, Route to Pharmacy Electronically, [id number], 186, cm, 04/20/23 21:24:00 EST, Height, 95.5, kg, 04/20/23 21:24:... Start Date: 05/19/23 Stop Date: 11/15/23 Status: Ordered latanoprost 0.005% ophthalmic solution 1 drops, Eye, Right, Daily at bedtime, 0 Refills, Maintenance, 01/01/18 18:46:39 EST Start Date: 01/01/18 Status: Ordered lidocaine 5% topical film 2 patch, Topically, Daily, remove patches after 12 hours, # 30 patch, 0 Refills, Maintenance, 04/20/23 19:59:00 EST, Film, [facility]/pharmacy #0750, Partial fill upon patient [...] 1 Refills, Maintenance, 05/29/21 14:41:00 EDT, Tablet, [facility]/pharmacy #[id number], 186, cm, 05/29/21 14:1... Start Date: 05/29/21 Status: Ordered oxyCODONE 5 mg oral capsule 1 capsule = 5 mg, By Mouth, Every 6 hours, PRN for pain, # 28 capsule, 0 Refills, Maintenance, 04/20/23 19:53:00 EST, Capsule, [facility]/pharmacy #0750, Partial fill upon patient [...] Refills, Maintenance, 05/18/23 15:11:00 EDT, ER Tablet, [facility]/pharmacy #[id number], Partial fill upon patient [...] 11/24/21 11:13:00 EDT, Route to Pharmacy Electronically, [facility], Partial fill upon patient [...] Team Personnel Name: Christiano Hernandez RN Position: [facility] RN Member Role: Primary Care Nurse Name: Nova Soto RN Position: [facility] ED RN W/OE and Tasks Member Role: Primary Care Nurse Name: Larissa Griggs MD Position: [facility] Physician - Endocrinology Member Role: PCP Address: Address: [address] [place] [address] [facility] [address]- Name: aZra Gongora Position: S Outreach Member Role: Lifetime Consulting Physician Name: China Gomez Position: S RN Member Role: Primary Care Nurse Name: Arpit Davis RN Position: [facility] ED RN W/OE and Tasks Member Role: Primary Care Nurse Name: Gala Schwartz RN Position: S RN Member Role: Primary Care Nurse Name: Macr Sidhu DO Position: [facility] Renal MD Member Role: Lifetime Consulting Physician Address: Address: [address] [place] [address] [address] [facility] [place] [address]- Name: Abraham RNLonnie Position: [facility] RN Member Role: Primary Care Nurse Name: Jason Anand RN Position: [facility] RN Member Role: Primary Care Nurse Name: Jannette Boyer RN Position: [facility] SN RN Member Role: Primary Care Nurse Name: Toby Shafer RN Position: S RN Member Role: Primary Care Nurse Name: Lesa Oneill RN Position: [facility] RN Member Role: Primary Care Nurse Name: Sarina Del Rio RN Position: [facility] Onco RN Member Role: Primary Care Nurse Care Team Related Persons Name: TRINIDAD CRUMP Name: ELICIA BRONSON Address: home [address] [place] [address]
--- OUTSIDE RECORDS SUMMARY | 2024-01-13 12:03 | XMS_ITS | Continuity of Care Document ---
Author Organization [facility] Address [address] [place] [phone]- Care Team Providers Care Qa Test Analyst Name Role Phone Larissa Griggs MD Primary Care Physic sophia Encounter [facility] [place](s): 05/27/22 - 06/03/22 [facility] [address] [place] [id number]- Encounter Diagnosis Coronary artery disease(Discharge Diagnosis) - 05/27/22 Chronic kidney disease, stage 3(Discharge Diagnosis) - 05/27/22 Hypertension(Discharge Diagnosis) - 05/27/22 Cognitive impairment(Discharge Diagnosis) - 05/27/22 Attending Physician: Isidoro Marx MD Referring Physician: [...] tablet, 3 Refills, Maintenance, 11/03/21 16:31:00 EDT, [facility] 298[facility], 186, cm, 10/23/21 14:57:00 EDT, Height, 88.1, [...] 12/17/21 15:20:00 EDT, Route to Pharmacy Electronically, [facility]/pharmacy #[id number], Partial fill upon [...] capsule, 0 Refills, Maintenance, 11/28/21 9:00:00 EDT, [facility], Partial fill upon [...] Maintenance,02/10/22 15:57:00 EST, Route to Pharmacy Electronically, [facility]/pharmacy #[id number], Partial fill upon [...] 1 Refills, Maintenance, 05/29/21 14:41:00 EDT, Tablet, [facility]/pharmacy #[id number], 186, cm, 05/29/21 [...] 11/24/21 11:13:00 EDT, Route to Pharmacy Electronically, [facility], Partial fill upon [...] Confirmed Active 1Problem added by Discern Expert Diagnosis Diagnosis Type Effective Dates Health Status Clinical Service Informant Coronary artery disease Discharge Diagnosis 05/27/22 Chronic kidney disease, stage 3 Discharge Diagnosis 05/27/22 Hypertension Discharge Diagnosis 05/27/22 Cognitive impairment Discharge Diagnosis 05/27/22 Vital Signs Most recent to oldest [Reference Range]: 1 Height 187 cm (05/27/22 2:44 PM) Weight 96 kg (05/27/22 2:44 PM) Oxygen Saturation [94-100 %] 100 % (05/27/22 2:44 PM) Pulse Rate [55-90 bpm] 66 bpm (05/27/22 2:44 PM) Body Mass Index [18.5-24.99 kg/m2] 27.45 kg/m2 *H* (05/27/22 2:44 PM) Blood Pressure [90-138/55-84 mm Hg] 132/ 80mm Hg (05/27/22 2:44 PM) Blood pressure sites Arm, right (05/27/22 2:44 PM) Social History Social History Type Response Smoking Status Never smoker; Tobacc o user in household: No entered on: 09/03/14 Sex Cardiology Outpatient Note * Araseli CABEZAS, Isidoro Perry: PERFORM Event Display: Cardiology Note Office Authored Date: Patient: ??KRISTEN BRONSON ? Age:??71 Years?Sex:??Male?:??1950?? Indication for Consult follow up care History of Present Illness/Interval History It was a pleasure seeing Kristen in follow-up. ??He is accompanied by his .?? He has been hospitalized twice (both times at [facility])??since our last visit. ??In November he was hospitalized with COVID-19.?? His states that the care was terrible and that they were very dissatisfied. ??He was also hospitalized??in early April after presenting with??pneumonia.?? He was treated with antibiotics and discharged.?? He states that I feel great. Just discharged from home care. ??Blood pressure control was difficult in the hospital but it is??now better than it has been in a while. ??Also??he had??significant peripheral edema which is vastly improved and he has recently??decreased??furosemide to 3 times a week at the??instruction of his PCP.? Review of Systems 10+ system ROS performed, pertinent positives and negatives in HPI and below. ??See scanned patientquestionnaire. Physical Exam Vitals & Measurements MA:??66?? BP:??132/80?? SpO2:??100%?? HT:??187??cm?? WT:??96??kg?? BMI:??27.45?? Weight lb/oz: 211 lb 10 oz Gen: pleasant, in no distress on room air Resp: lungs clear to auscultation bilaterally CV: normal rate, regular rhythm, no murmurs rubs or gallops. Ext: ??No JVD. ??No lower extremity edema. No carotid bruits.?? Assessment/Plan 71-year-old male with history of coronary disease, CKD 3, hypertension,??and cognitive impairment??unclear cause possibly??dementia versus alcohol use presents for follow-up.?? 2 hospitalizations with acute illness,??first for??COVID-19 in November 2021 and??more recently for pneumonia??as above. ??D oing remarkably well now considering. ??Blood pressure is as well-controlled as I have seen it in the recent past.?? Edema has basically resolved. ??He feels well. ??We will make no changes??at this time. 1.??Coronary artery disease Continue aspirin indefinitely, high intensity statin. 2.??Chronic kidney disease, stage 3 Continue furosemide??3 times per week??as listed above.?? Instructed??to weigh every day, if more than 2 pound weight gain in 1 day or 5 pounds in a week should increase furosemide back to daily and??let my clinic and his PCP know 3.??Hypertension Good control on current medications, no changes. ??If hypertensive in the future could consider??increasing amlodipine 4.??Cognitive impairment Seems to be relatively stable. ??No obvious culprits on his list of??cardiovascular medications. 6-month follow-up with me Total Time Spent I personally spent a total of??33 minutes, including both aibb-jb-uroz and pbj-dkqw-bt-face time onthe date of the encounter, addressing the above diagnoses. ? The above note was prepared with the help of voice recognition software. Please excuse any grammatical or spelling errors that may have occurred. ?? Thank you for involving me in the care of this patient. ??Please do not hesitate to contact me withquestions or concerns. ?? Isidoro Marx MD [facility] [phone] ?? [address] [id number] Allergies NKA Home Medications acetaminophen-oxycodone 325 mg-7.5 mg oral tablet, 1 tablet, By Mouth, 3 times a day, PRN, (UP TO THREE TIMES DAILY) allopurinol 300 mg oral tablet, 300 mg= 1 tablet, By Mouth, Daily amLODIPine 5 mg oral tablet, 5 mg= 1 tablet, By Mouth, Daily, 3 refills aspirin 81 mg oral delayed release tablet, 81 mg= 1 tablet, By Mouth, Daily atorvastatin 80 mg oral tablet, 1 tablet, By Mouth, Daily Chondroitin-Glucosamine, 1 tablet, By Mouth, 2 times a day Coreg 12.5 mg oral tablet, 12.5 mg= 1 tablet, By Mouth, 2 times a day, 3 refills dorzolamide-timolol 2.23%-0.68% ophthalmic solution, 1 drops, Eye, Right, 2 times a day duloxetine 30 mg oral enteric coated capsule, 30 mg= 1 capsule, By Mouth, Daily, start taking from 11/28/21 furosemide 40 mg oral tablet, 40 mg= 1 tablet, By Mouth, Every Tuesday, Tuesday and Tuesday gabapentin 300 mg oral capsule, 600 mg= 2 capsule, By Mouth, 2 times a day, 5 refills latanoprost 0.005% ophthalmic solution, 1 drops, Eye, Right, Daily at bedtime Multivitamin, 1 tab, By Mouth, Daily nitroglycerin 0.4 mg sublingual tablet, 0.4 mg= 1 tablet, Sublingual, Every 5 minutes, PRN, 1 refills, not to exceed 3 doses/15 min--if pain persists, seek medical attention Potassium Chloride (Eqv-K-Tab) 20 mEq oral tablet, extended release, 40 mEq= 2 tablet, By Mouth, Every Tuesday, Tuesday and Tuesday rocío stockings 15 to 20, See Instructions, rocío stockings 15-20 mmHg Testosterone Cypionate 200 mg/mL intramuscular solution, 40 [...] By Mouth, Daily Lab Results Cardiology Labs WBC:??11.6 k/mm3??High (05/03/22) RBC:??3.79 m/mm3??Low (05/03/22) Hgb:??11.7 Gm/dL??Low (05/03/22) Hct:??35.7 %??Low (05/03/22) MCV:??94.2 femtoliters??High (05/03/22) MCH: 30.9 pg (05/03/22) MCHC:??32.8 g/dL??Low (05/03/22) Platelet Count: 395 k/mm3 (05/03/22) RDW-SD:??52.9 femtoliters??High (05/03/22) Nucleated RBC (Automated): 0 #/100 WBC'S (05/03/22) Abs. Neut:??8.1 k/mm3??High (05/03/22) Abs. Lymph: 1.8 k/mm3 (05/03/22) Abs. [place]: 0.7 k/mm3 (05/03/22) Abs. Eo:??0.6 k/mm3??High (05/03/22) Abs. Baso: 0.1 k/mm3 (05/03/22) Neut %: 70.2 % (05/03/22) [place] %: 5.7 % (05/03/22) Eos %: 4.9 % (05/03/22) Baso %: 0.6 % (05/03/22) Imm Gran: 2.8 % (05/03/22) Abs. Imm Gran: 0.3 k/mm3 (05/03/22) INR:??1.2??High (04/25/22) Protime (PT):??13 seconds??High (04/25/22) Sodium: 139 mmol/L (05/03/22) Potassium:??3.4 mmol/L??Low (05/03/22) Chloride: 100 mmol/L (05/03/22) Bicarbonate Level: 27 mmol/L (05/03/22) Glucose Level:??101 mg/dL??High (04/29/22) BUN: 8 mg/dL (05/03/22) Creatinine-Blood: 0.9 mg/dL (05/03/22) Calcium: 8.8 mg/dL (04/29/22) Protein, Total:??5.4 Gm/dL??Low (04/29/22) Albumin:??3 Gm/dL??Low (04/29/22) Alkaline Phosphatase:??139 units/L??High (04/29/22) AST (SGOT):??45 units/L??High (04/29/22) ALT (SGPT): 38 units/L (04/29/22) Bilirubin, Total: 0.7 mg/dL (04/29/22) Troponin T Quant: <0.01 (11/19/21) Nt-Probnp:??1890 pg/mL??High (04/25/22) TSH: 0.47 uIU/mL (11/19/21) Free T4: 1.13 ng/dL (06/19/21) Diagnostic Impression ECG ECG 12-Lead ?? 07:45:19 Please click on pdf link to open report ?? Signed By: Linus Laughlin MD ?? ECG 12-Lead ?? 07:45:19 Ventricular Rate: 90 BPM Atrial Rate: 90 BPM P-R Interval: 190 ms QRS Duration: 90 ms Q-T Interval: 368 ms QTC Calculation(Bazett): 450 ms P Warren: 64 degrees R Warren: 1 degrees T Warren: 68 degrees Normal sinus rhythm Possible Inferior infarct , age undetermined Abnormal ECG When compared with ECG of 19-NOV-2021 03:57, T wave inversion no longer evident in Inferior leads Nonspecific T wave abnormality now evident in Lateral leads Confirmed by LINUS LAUGHLIN ([id number]) on 04/25/2022 9:17:53 AM ?? [place]: LINUS LAUGHLIN ?? Signed By: Linus Laughlin [...] impairment Coronary artery disease COVID-19 Hypertension Hypokalemia Historical No qualifying data Procedure/Surgical History No qualifying data available. Social History Alcohol Use: Current. Frequency: Daily. Type: Beer. Alcohol use in household: Yes., 04/26/2022 Tobacco Never smoker, Tobacco user in household: No., 09/03/2014 Family History Mother: Cancer of breast Father: Liver cancer ?05-DEC-2015 23:30:20<$> Brother: Cancer of prostate Patient Care team information Care Team Personnel Name: Christiano Hernandez RN Position: [facility] RN Member Role: Primary Care Nurse Name: Nova Soto RN Position: [facility] ED RN W/OE and Tasks Member Role: Primary Care Nurse Name: Larissa Griggs MD Position: [facility] Physician (General Medicine) Member Role: PCP Address: Address: [address] [place] [address] [facility] [place] [address]- Name: Zara Gongora Position: [facility] Outreach Member Role: Lifetime Consulting Physician Name: Cora Johns RN Position: [facility] RN Member Role: Primary Care Nurse Name: China Gomez Position: [facility] RN Member Role: Primary Care Nurse Name: Arpit Davis RN Position: [facility] ED RN W/OE and Tasks Member Role: Primary Care Nurse Name: Gala Schwartz RN Position: [facility] RN Member Role: Primary Care Nurse Name: Marc Sidhu DO Position: [facility] Renal MD Member Role: Lifetime Consulting Physician Address: Address: [address] [place] [address] [address] [facility] [place] [address]- Name: Lonnie Rosario RN Position: [facility] RN Member Role: Primary Care Nurse Name: Jason Anand RN Position: [facility] RN Member Role: Primary Care Nurse Name: Sarina Del Rio RN Position: [facility] Onco RN Member Role: Primary Care Nurse Name: Emmie Vera Position: S RN Member Role: Primary Care Nurse Care Team Related Persons Name: TRINIDAD CRUMP Name: ELICIA BRONSON Address: home [address] [place] [address]
--- OUTSIDE RECORDS SUMMARY | 2024-01-13 12:03 | XMS_ITS | Continuity of Care Document ---
Author Organization [facility] ter Address [address] [place] [address]- Care Team Providers Care Automotive Maintenance Technician Name Role Phone Eve Warren MD, Larissa Medina Primary Care Physic sophia Encounter [facility] Date(s): 02/02/19 - 02/02/[address] [address]- [facility] Attending Physician: Dante Lemus MD Allergies, Adverse Reactions, Alerts Substance Reaction [...] = 80 mg, By Mouth, Daily, # 30 tablet, 11 Refills, Maintenance, Tablet, Route to Pharmacy Electronically, [id number], [facility]/pharmacy #[id number] Start Date: 02/18/18 Status: Ordered clopidogrel 75 mg oral tablet 75 mg, 1, tablet, By Mouth, Daily, # 30 tablet, Refills 11, Tot. Refills 11, Maintenance, 01/22/19 9:48:15 EST, Route to Pharmacy Electronically, [id number], [facility]/pharmacy #[id number] Start Date: 01/22/19 Stop Date: 01/17/20 Status: Ordered colchicine 0.6 mg oral tablet 0.6 mg, 1, tablet, By Mouth, Daily, Refills 0, Maintenance, 01/01/18 18:45:03 EST Start Date: 01/01/18 Status: Ordered Coreg 6.25 mg oral tablet 6.25 mg, 1, tablet, By Mouth, 2 times a day, # 60 tablet, Refills 11, Tot. Refills 11, Maintenance,02/01/19 9:26:07 EST, Route to Pharmacy Electronically, [id number], [facility]/pharmacy #[id number], 186, cm, 01/30/19 9:20:58 EST, Height... [...] EDT, Capsule Start Date: 11/26/14 Status: Ordered latanoprost 0.005% ophthalmic solution 1 drops, Eye, Right, Daily before dinner, 0 Refills, Maintenance, 01/01/18 18:46:39 EST Start Date: 01/01/18 Status: Ordered lisinopril 5 mg oral tablet 5 mg, 1, tablet, By Mouth, Daily, # 30 tablet, Refills 11, Tot. Refills 11, Maintenance, 01/22/19 9:48:35 EST, Route to Pharmacy Electronically, [id number], [facility]/pharmacy #[id number] Start Date: 01/22/19 Stop Date: 01/17/20 Status: Ordered Multivitamin 1 tab, By Mouth, Daily, 0 Refills, Maintenance, 01/01/18 20:23:10 EST Start Date: 01/01/18 Status: Ordered nitroglycerin 0.4 mg sublingual tablet 1 tablet = 0.4 mg, Sublingual, Every 5 minutes, PRN for chest pain, not to exceed 3 doses/15 min--if pain persists, seek medical attention, # 100 tablet, 11 Refills, Maintenance, 06/16/18 10:29:48 EDT, Tablet Start Date: 06/16/18 Status: Ordered oxyCODONE 5 mg oral tablet TAKE ONE CAPSULE EVERY 8 HOURS NEEDED FOR PAIN*FILL 12/27/17* Start Date: 01/01/18 Status: Ordered Silvadene 1% cream 1 application, Topically, Daily, right great toe burn, # 50 Gm, 0 Refills, Maintenance, 01/01/18 20:25:42 EST, Cream Start Date: 01/01/18 Status: Ordered Spironolactone By Mouth, 0 Refills, Maintenance, 02/03/18 15:08:09 EST Start Date: 02/03/18 Status: Ordered spironolactone 50 mg oral tablet [...] EST, Capsule Start Date: 02/03/18 Status: Ordered Vitamin D3 oral tablet 1 tablet = 400 International_Units, By Mouth, Daily, # 30 tablet, 0 Refills, Maintenance, 01/01/18 20:28:23 EST, Tablet Start Date: 01/01/18 Status: Ordered Problem List Condition Effective Dates Status Health Status Inform ant Coronary artery disease(Confirmed) Active Hypertension(Confirmed) Active Hypokalemia(Confirmed) Active Social History Social History Type Response Smoking Status Never smoker; Tobacc o user in household: No entered on: 09/03/14 Sex
--- OUTSIDE RECORDS SUMMARY | 2024-01-13 12:04 | XMS_ITS | Continuity of Care Document ---
Author Organization [facility] ter Address [address] [place] [id number]- Care Team Providers Care Curtain Roller Assembler Name Role Phone Eve Warren MD, Larissa Medina Primary Care Physic soph[place] [facility] [place] 12/14/[address] [address]- Allergies, Adverse Reactions, Alerts No Known Allergies [...] tablet, 3 Refills, Maintenance, 06/30/23 10:54:00 EDT, [id number], 186, cm, 06/21/23 15:46:00 EDT, Height, 102, kg, 06/21/23 15:46:00 EDT, Dry Weight Start Date: 06/30/23 Status: Ordered carvedilol 12.5 mg oral tablet 1, tablet, By Mouth, 2 times a day, # 180 tablet, Refills 3, Maintenance, 02/10/23 15:08:00 EST, Route to Pharmacy Electronically, [id number], 178, cm, 02/03/23 11:28:00 EST, Height, 99.3, [...] 09/05/23 15:11:00 EDT, Route to Pharmacy Electronically, [id number], 185, cm, 08/09/23 6:22:00 EDT, Height, 97.8, kg, 08/08/23 14:44:00 EDT, Dry Weight Start Date: 09/05/23 Status: Ordered dorzolamide-timolol 2.23%-0.68% ophthalmic solution 1 drops, Eye, Right, 2 times a day Start Date: 11/19/21 Status: Ordered duloxetine 30 mg oral enteric coated capsule 1 capsule = 30 mg, By Mouth, Daily, start taking from 11/28/21, # 30 capsule, 0 Refills, Maintenance, 11/28/21 9:00:00 EDT, [facility], Partial fill upon patient request if the prescription is for a schedule II opioid drug., 187, cm, 10/0... Start Date: 11/28/21 Status: Ordered Eliquis 2.5 mg oral tablet 1 tablet = 2.5 mg, By Mouth, 2 times a day, # 60 tablet, 0 Refills, Maintenance, 08/09/23 8:46:00 EDT, Tablet, [facility], Partial fill upon [...] Required Details, Route to Pharmacy Electronically, [id number], 178, cm, 10/15/22 8:07:00 EDT,... Start Date: 01/24/23 Status: Ordered gabapentin 300 mg oral capsule 900 mg, 3, capsule, By Mouth, 2 times a day, # 180 capsule, Refills 5, Tot. Refills 5, Maintenance,10/15/22 8:33:00 EDT, Route to Pharmacy Electronically, [facility]/pharmacy #[id number], 178, cm, 10/15/22 8:07:00 [...] Refills, Maintenance, 05/29/21 14:41:00 EDT, Tablet, [facility]/pharmacy #[id number], 186, cm, 05/29/21 14:1... [...] tablet, 11 Refills, Maintenance, 09/21/23 16:08:00 EDT, [facility]/pharmacy #[id number], 185, cm, 08/09/23 6:22:00 EDT, [...] 11/24/21 11:13:00 EDT, Route to Pharmacy Electronically, [facility], Partial fill upon patient request [...] International_Units, By Mouth, Daily, 0 Refills, Maintenance, 12/14/18 14:16:59 EST, Capsule Start Date: 02/03/18 Status: [...] Team Personnel Name: Christiano Hernandez RN Position: [facility] RN Member Role: Primary Care Nurse Name: Nova Soto RN Position: [facility] ED RN W/OE and Tasks Member Role: Primary Care Nurse Name: Larissa Griggs MD Position: [facility] Physician - Endocrinology Member Role: PCP Address: Address: [address] [place] [address] [place] [address]- Name: Zara Gongora Position: [facility] Outreach Member Role: Lifetime Consulting Physician Name: China Gomez Position: [facility] RN Supv Member Role: Primary Care Nurse Name: Arpit Davis RN Position: [facility] ED RN W/OE and Tasks Member Role: Primary Care Nurse Name: Gala Schwartz RN Position: [facility] RN Member Role: Primary Care Nurse Name: Marc Sidhu DO Position: [facility] Renal MD Member Role: Lifetime Consulting Physician Address: Address: [address] [place] [address] [address] [facility] [place] [address]- Name: Meseret Rosario RN Position: [facility] RN Member Role: Primary Care Nurse Name: Lonnie Rosario RN Position: [facility] RN Member Role: Primary Care Nurse Name: Kirby Zavala RN Position: [facility] RN Member Role: Primary Care Nurse Name: Jason Anand RN Position: [facility] RN Member Role: Primary Care Nurse Name: Jannette Boyer RN Position: [facility] AMB Nurse Member Role: Primary Care Nurse Name: Toby Shafer RN Position: [facility] RN Member Role: Primary Care Nurse Name: Lesa Oneill RN Position: [facility] RN Member Role: Primary Care Nurse Name: Sarina Del Rio RN Position: [facility] Onco RN Member Role: Primary Care Nurse Care Team Related Persons Name: TRINIDAD CRUMP Name: ELICIA BRONSON Address: [address] [place] [address]
--- OUTSIDE RECORDS SUMMARY | 2024-01-13 12:04 | XMS_ITS | Continuity of Care Document ---
Author Organization [facility] Address Unknown Care Team Providers Care Family Day Carer Name Role Phone Eve Warren MD, Larissa Medina Primary Care Physic sophia Encounter [facility] [id number] Date(s): 06/18/21 - 07/18/21 [facility] Attending Physician: Cristiano Prado Admitting Physician: Cristiano [...] 18:43:12 EST Start Date: 01/01/18 Status: Ordered atorvastatin 80 mg oral tablet 1 tablet = 80 mg, By Mouth, Daily, # 90 tablet, 3 Refills, Maintenance, 02/04/21 14:50:00 EST, Tablet, [facility]/pharmacy #[id number], 186, cm, 11/27/20 13:22:00 EDT, Height Start Date: 02/04/21 Stop Date: 01/30/22 Status: Ordered Coreg 6.25 mg oral tablet 6.25 mg, 1, tablet, By Mouth, 2 times a day, # 180 tablet, Refills 3, Tot. Refills 3, Maintenance, 07/09/21 11:14:00 EDT, Route to Pharmacy Electronically, [facility]/pharmacy #[id number], Partial fill upon patient request if the prescription is for a schedule II... Start Date: 07/09/21 Stop Date: 07/04/22 Status: Ordered Ferrous Sulfate ER See Instructions, takes 65 mg (2 tabs) daily, Refills 0, Maintenance, 01/01/18 20:20:23 EST, Instructions Replace Required Details Start Date: 01/01/18 Status: Ordered gabapentin 300 mg oral capsule 4, capsule, By Mouth, 2 times a day, X30 DAYS., # 240 capsule, Refills 5, Tot. Refills 5, 06/23/21 12:42:00 EDT, Route to Pharmacy Electronically, [facility]/pharmacy #[id number], 186, cm, 06/18/21 14:24:00 EDT, Height Start Date: 06/23/21 Status: Ordered Glucosamine Chondroitin By Mouth, Daily, [...] EST, Tablet Start Date: 02/03/18 Stop Date: 4/11/21 Status: Ordered Testosterone Enanthate 200 mg/mL intramuscular [...] Date: 02/03/18 Status: Ordered Problem List Condition Effective Dates [...]
--- OUTSIDE RECORDS SUMMARY | 2024-01-13 12:04 | XMS_ITS | Continuity of Care Document ---
Author Organization [facility] ter Address [address] [place] [id number]- Care Team Providers Care Experimental Flight Test Mechanic Name Role Phone Eve Warren MD, Larissa Medina Primary Care Physic sophia Encounter [facility] Date(s): 04/25/22 - 05/03/[address] [id number]- Encounter Diagnosis Pneumonia(Final) - 04/25/22 Hypoxia(Final) - 04/25/22 Discharge Disposition: A-Transfer VNA/Home Health Attending Physician: Arvind CABEZAS, Mora Admitting Physician: Omer Faria MD Referring Physician: Not on Staff, Referring [...] Date: 12/17/21 Stop Date: 12/12/22 Status: Ordered amLODIPine 5 mg oral tablet 5 mg, Tablet, By Mouth, 05/03/22 9:00:00 EDT Start Date: 05/03/22 Stop Date: 05/03/22 Status: Completed amoxicillin-clavulanate 875 mg-125 mg oral tablet = 875 mg, By Mouth, 2 times a day, for 2 days, # 4 tablet, 0 Refills, Acute 05/05/22 9:34:00 EDT, 05/03/22 9:34:00 EDT, Tablet, [facility]/pharmacy #[id number], Partial fill upon patient request if the prescription is for a schedule II opioid drug., 187, cm, 05/03... Start Date: 05/03/22 Stop Date: 05/05/22 Status: Ordered aspirin 81 mg oral delayed release tablet 81 mg, 1, tablet, By Mouth, Daily, Maintenance, 04/25/22 13:00:00 EST, Partial fill upon patient request if the prescription is for a schedule II opioid drug. Start Date: 04/25/22 Status: Ordered atorvastatin 80 mg oral tablet 1 tablet, By Mouth, Daily, # 90 tablet, 3 Refills, Maintenance, 11/03/21 16:31:00 EDT, [id number], 186, cm, 10/23/21 14:57:00 EDT, Height, 88.1, [...] 12/17/21 15:20:00 EDT, Route to Pharmacy Electronically, [facility]/pharmacy #[id number], Partial fill upon patient request if the prescription is for a schedule II... Start Date: 12/17/21 Stop Date: 12/12/22 Status: Ordered Coreg 12.5 mg oral tablet 12.5 mg, Tablet, By Mouth, 05/03/22 9:00:00 EDT Start Date: 05/03/22 Stop Date: 05/03/22 Status: Completed dorzolamide-timolol 2.23%-0.68% ophthalmic solution 1 drops, Eye, Right, 2 times a day Start Date: 11/19/21 Status: Ordered doxycycline monohydrate 100 mg oral tablet = 100 mg, By Mouth, Every 12 hours, for 2 days, # 4 tablet, 0 Refills, Acute 05/05/22 9:35:00 EDT, 05/03/22 9:35:00 EDT, Tablet, [facility]/pharmacy #[id number], Partial fill upon patient request if the prescription is for a schedule II opioid drug., 187, cm, 04/21... Start Date: 05/03/22 Stop Date: 05/05/22 Status: Ordered duloxetine 30 mg oral enteric coated capsule 1 capsule = 30 mg, By Mouth, Daily, start taking from 11/28/21, # 30 capsule, 0 Refills, Maintenance, 11/28/21 9:00:00 EDT, [facility], Partial fill upon patient request if the prescription is for a schedule II opioid drug., 187, cm, ... Start Date: 11/28/21 Status: Ordered furosemide 40 [...] Maintenance,02/10/22 15:57:00 EST, Route to Pharmacy Electronically, [facility]/pharmacy #[id number], Partial fill upon patient request if the prescription is for a schedule II... Start Date: 02/10/22 Status: Ordered Gabapentin 50 mg/ml Liquid 300 mg, Liquid, By Mouth, 05/03/22 9:00:00 EDT Start Date: 05/03/22 Stop Date: 05/03/22 Status: Completed latanoprost 0.005% ophthalmic solution 1 drops, Eye, [...] Refills, Maintenance, 05/29/21 14:41:00 EDT, Tablet, [facility]/pharmacy #[id number], 186, cm, 05/29/21 14:1... Start [...] 11/24/21 11:13:00 EDT, Route to Pharmacy Electronically, [facility], Partial fill upon patient request [...] Active 1Problem added by Discern Expert Results Orders for Microbiology Reports Name Date Blood Culture 04/25/22 Blood Culture #2 04/25/22 Microbiology Reports TEST:Blood Culture STATUS:Auth (Verified) BODY SITE: SOURCE:Blood COLLECTED DATE/TIME:04/25/22 3:15 PM Blood Culture SPECIMEN DESCRIPTION : BLOOD R HAND SPECIAL REQUESTS : NONE CULTURE : NO GROWTH 5 DAYS. REPORT STATUS : FINAL 04/30/2022 TEST:Blood Culture, Second Order STATUS:Auth (Verified) BODY SITE: SOURCE:Blood COLLECTED DATE/TIME:04/25/22 3:15 PM Blood Culture, Second Order SPECIMEN DESCRIPTION : BLOOD R ARM SPECIAL REQUESTS : NONE CULTURE : NO GROWTH 5 DAYS. REPORT STATUS : FINAL 04/30/2022 Radiology Reports * Exam Date Time Procedure Performing Provider Status 04/30/22 10:20 AM Chest Portable Luis Alfredo Kulkarni; Auth (Verified) Notes: (Chest Portable) Reason For Exam: persistebtly increased O 2 requirement;Other: RESULT: Chest Portable Chest Portable INDICATION: Shortness of breath, increased oxygen requirement. COMPARISON: Multiple prior radiographs, most recent 04/25/2022. FINDINGS: LINES AND TUBES: None. LUNGS AND PLEURA: Slightly increased airspace opacities in the mid and lower lung regions. New hazy opacification of the right upper lung. Small left pleural effusion. No pneumothorax. HEART, MEDIASTINUM AND TAVO: Mild prominence of the cardiac silhouette, unchanged. BONES AND SOFT TISSUES: No acute abnormality. IMPRESSION: Slightly increased airspace opacities in the mid and lower lung regions as well as new hazy opacification of the right upper lung, concerning for worsening pneumonia. Small left pleural effusion. I have personally reviewed the images and I agree with this report. WSN: [id number] Ordering Physician: Mora Samuels Dictated By: Toby De Leon MD Dictated Date/Time: 04/30/22 11:33 a Reviewed By: Gerson Servin MD, V Signed By: Gerson Servin MD, V Signed Date/Time: 04/30/22 11:38 am Transcribed By: MY Transcribed Date/Time: 04/30/22 11:31 am * Exam Date Time Procedure Performing Provider Status 04/28/22 7:[address] Chest W/O Contrast Teer Dailey; Auth (Verified) Notes: (CT Chest W/O Contrast) Reason For Exam: Respiratory Failure;Other: RESULT: CT Chest W/O Contrast CT Chest W/O Contrast INDICATION: Reason: Other:; Respiratory Failure; Clinical Question(s): Chronic Interstitial Lung Disease; Order Comment: TECHNIQUE: Helical CT scan of the chest without IV contrast, formatted in 3 planes. Weight-based protocol was performed using automatic exposure control. CTDIvol Body: 7.60 mGy, DLP Body: 490 mGy*cm. COMPARISON: None. FINDINGS: Cooking Casing And Drying Supervisor view findings, lines and tubes: None. Trachea and airways: Patent without evidence of tracheal or endobronchial lesion. Lungs and pleura: There are prominent bilateral groundglass opacities both lungs. I do not see evidence of honeycombing. Trace pleural fluid identified. Differential includes pneumonia and pulmonary edema. No bronchiectasis appreciated. Mediastinum and tavo: No mass or hematoma. No mediastinal or hilar lymphadenopathy. No esophageal abnormality. Heart: Moderate cardiomegaly. No pericardial effusion. Aorta: No aortic aneurysm. Pulmonary arteries: Normal caliber. Chest wall soft tissues: No acute abnormality. Diaphragm: Intact. Upper abdomen: No significant abnormality. Bones: No acute abnormality. IMPRESSION: Bilateral groundglass opacities with trace bilateral pleural effusions. Findings most suggestive ofpneumonia. Pulmonary edema is also in the differential. No findings to indicate interstitial lung disease. WSN: [id number] Ordering Physician: Sari Bob Dictated By: Adam Rene MD Dictated Date/Time: 04/28/22 11:27 p Reviewed By: Adam Rene MD Signed By: Adam Rene MD Signed Date/Time: 04/28/22 11:27 pm Transcribed By: MY Transcribed Date/Time: 04/28/22 11:23 pm * Exam Date Time Procedure Performing Provider Status 04/25/22 8:19 AM Chest 2 Views Frontal and Lat Carlyle i , Rachel F; Auth (Verified) Notes: (Chest 2 Views Frontal and Lat) Reason For Exam: Shortness of Breath, Fever;Other: RESULT: Chest 2 Views Frontal and Lat Chest 2 Views Frontal and Lat Hx of Present Illness: reports having a sinus infection for the past 3d. endorses h a, sob, cough, nasal congestion, sore throat, headache. 101.5 temp upon arrival. denies use of antipyretics.; Reason: Other:; Shortness of Breath, Fever; Clinical Question(s): Pneumonia COMPARISON: None. FINDINGS: LINES AND TUBES: None. LUNGS AND PLEURA: There are airspace opacities in the mid to lower lung ruth bilaterally. There is mild blunting of the right costophrenic angle compatible with a small pleural effusion. There is pulmonary vascular congestion. There is no evidence of a pneumothorax. HEART, MEDIASTINUM AND TAVO: The cardiomediastinal silhouette is prominent. BONES AND SOFT TISSUES: No acute abnormality. IMPRESSION: Bilateral patchy airspace lung opacities. Differential considerations include pneumonia versus other infectious, inflammatory or neoplastic etiologies. Mild pulmonary vascular congestion. Findings suggestive of a small right pleural effusion. WSN: [id number] Ordering Physician: Rossy Fong Dictated By: Shellie Dunaway MD Dictated Date/Time: 04/25/22 8:32 am Reviewed By: Shellie Dunaway MD Signed By: Shellie Dunaway MD Signed Date/Time: 04/25/22 8:32 am Transcribed By: MY Transcribed Date/Time: 04/25/22 8:27 am Vital Signs Most recent to oldest [Reference Range]: 1 2 3 Height 187 cm (05/03/22 2:59 AM) 187 cm (05/02/22 11:28 PM) 187 cm (05/02/22 3:48 PM) Weight 94.9 kg (04/28/22 3:00 PM) 89.0 kg (04/26/22 12:00 AM) Oxygen Saturation [94-100 %] 94 % (05/03/22 11:00 AM) 91 % *L* (05/03/22 7:00 AM) 96 % (05/03/22 2:59 AM) Pulse Rate [55-90 bpm] 77 bpm (05/03/22 11:00 AM) 84 bpm (05/03/22 7:58 AM) 86 bpm (05/03/22 7:00 AM) Blood Pressure [90-138/55-84 mm Hg] 135/72mm Hg (05/03/22 11:00 AM) 132/68mm Hg (05/03/22 8:00 AM) 132/68mm Hg (05/03/22 7:58 AM) Respiratory Rate [16-30 br/min] 18 br/min (05/03/22 11:00 AM) 19 br/min (05/03/22 8:56 AM) 18 br/min (05/03/22 7:56 AM) Temperature [96.8-100.4 DegF] 97.9 DegF (05/03/22 11:00 AM) 97.7 DegF (05/03/22 7:00 AM) 98.0 DegF (05/03/22 2:59 AM) Liters per Minute 3 L/min (04/30/22 9:00 AM) 5 L/min (04/30/22 3:47 AM) 5 L/min (04/30/22 12:08 AM) Mode of Delivery (Oxygen) Room air (05/03/22 11:00 AM) Room air (05/03/22 7:00 AM) Room air (05/03/22 2:59 AM) Blood pressure sites Arm, right (05/03/22 11:00 AM) Arm, right (05/03/22 7:00 AM) Arm, right (05/03/22 2:59 AM) Temperature Route Oral (05/03/22 11:00 AM) Oral (05/03/22 7:00 AM) Oral (05/03/22 2:59 AM) Dry Weight 98 kg (04/26/22 12:21 AM) Weight Obtained Via Bed scale (04/28/22 3:00 PM) Bed scale (04/26/22 12:21 AM) Social History Social History Type Response Smoking Status Never smoker; Tobacc o user in household: No entered on: 09/03/14 Sex History and physical note * Ayad CABEZAS, Richie Coon: PERFORM Event Display: History and Physical Hospital Authored Date: Patient: ??KRISTEN BRONSON ? Age:??71 Years?Sex:??Male?:??1950?? Chief Complaint/Reason for Consultation Cough, SOB History of Present Illness This is a 71 yo M with a history of mild cognitive impairment/early dementia, CAD, HTN, JORDIN on CPAP, chronic low back pain on opiates, gout, OCD, prostate Ca s/p prostatectomy. He comes into the hospital with cough, SOB and hypoxia. ?? The patient is A+Ox3 but defers to his to give most of the history. She tells me that 4 days prior to admission the patient had some upper respiratory symptoms including nasal congestion and sinus pain. The day prior to admission the patient developed a cough and mild SOB. His checked an O2 sat which was 85% but the patient refused to come to the hospital He did agree to come to the hospital today ?? In the ED the patient the patient was found to be febrile with sats of 88% on room air CXR was consistent with multifocal pneumonia He has received ceftriaxone and azithromycin His oxygen saturation has improved with placement of O2 via a face mask ?? SHx lives with non-smoker 1-2 beers per day no illicit drugs walks without cane/walker ?? FHx Father with CAD Review of Systems ?Constitutional:??fevers. no chills/rigors ?Eyes: no pain, no vision changes ?ENT: no ear pain, no change in hearing ?Cardiovasc: no chest pain, no palpitations, no PND, no orthopnoea ?Resp:??cough with some phlegm. 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 Vital Signs?? Temperature: 99.3 DegF (04/25/22 13:22:00) Temperature Route: Oral (04/25/22 13:22:00) Pulse Rate: 89 bpm (04/25/22 07:39:00) Respiratory Rate: 18 br/min (04/25/22 15:34:00) Systolic Blood Pressure: 122 mm Hg (04/25/22 15:25:00) Diastolic Blood Pressure: 77 mm Hg (04/25/22 15:25:00) Blood pressure sites: Arm, left (04/25/22 15:25:00) Mean Arterial Pressure: 87 mm Hg (04/25/22 07:39:00) Pulse Pressure: 45 mm Hg (04/25/22 15:25:00) Oxygen Saturation: 97 % (04/25/22 15:25:00) Liters per Minute: 5 L/min (04/25/22 15:25:00) Mode of Delivery (Oxygen): Simple face mask (04/25/22 15:25:00) Early Warning Score: 6 (04/25/22 15:35:46) ? Intake/Output? 04/25 09:49 04/25 07:00 04/24 07:00 04/23 07:00 04/22 07:00 ?? 04/25 16:13 04/25 16:13 04/25 06:59 04/24 06:59 04/23 06:59 Intake ?200 ?200 ?0 ?0 ?0 Output ?0 ?0 ?0 ?0 ?0 Net Total ?200 ?200 ?0 ?0 ?0 ? Physical Exam General:??no acute distress Mental Status:??Oriented to person, place and time. Normal affect. Head:??Normocephalic. Ear, Nose and Throat:??Oropharynx clear, mucous membranes dry Neck:??Supple, Full range of motion. Respiratory:??bilateral crackles Cardiovascular:??Heart sounds normal. No thrills. Regular rate and rhythm, no murmurs Gastrointestinal:??Abdomen soft, non-tender, non-distended. Normal bowel sounds Genitourinary:??No costovertebral angle tenderness. Neurologic:??Cranial nerves II-XII grossly intact. power 5/5 throughout. Sensation intact bilaterally. Skin:??No rashes or lesions. Musculoskeletal:??No gross deformities. Normal range of motion. Lymphatics:??Palpation of neck reveals no swelling or tenderness of neck nodes Ext trace oedema Assessment/Plan Assessment:??This is a 71 yo M with a history of mild cognitive impairment/early dementia, CAD, HTN, JORDIN on CPAP, chronic low back pain on opiates, gout, OCD, prostate Ca s/p prostatectomy. He comes into the hospital with cough, SOB and hypoxia. Found to have evidence of sepsis secondary to community acquired pneumonia ?? Acute respiratory failure with hypoxia (J96.01):??. Sepsis (A41.9):??. Pneumonia (J18.9):?? Presents with fever, cough and SOB Hypoxic to 88% on room air WCC 19 and elevated procalcitonin multi-focal infiltrates on CXR Plan: Ceftriaxone, azithromycin wean O2 as able obtain BCs, sputum culture and urinary??antigens ?? Acute kidney injury (N17.9): Baseline Cr of around 1 Cr 1.3 on presentation will hold diuretic at present avoid nephrotoxins and monitor ?? HTN (hypertension) (I10): on amlodipine and carvedilol at home will hold amlodipine at present monitor BP ?? Coronary artery disease (I25.10): continue aspirin, statin and beta eddie ?? Chronic back pain (M54.9): continue oxycodone and gabapentin ?? Glaucoma (H40.9): continue eye drops ?? VTE Prophylaxis:??enoxaparin ?VTE Prophylaxis Assessment:??VTE Prophylaxis Ordered ?? Code Status:??Full - discussed with patient and ?Order Code Status:??Code Status Ordered Histories Allergies Allergies ?(Active and Proposed Allergies Only) NKA? (Severity: Unknown severity, Onset: Unknown) ? Past Medical History/Problem List Active Problems??(5) Chronic kidney disease, stage 3 Coronary artery disease COVID-19 Hypertension Hypokalemia ? Past Surgical History No surgery history documented. ? Social History Tobacco Details:??Never smoker, Tobacco user in household: No. ? Family History Mother: Cancer of breast Father: Liver cancer ?05-DEC-2015 23:30:20<$> Brother: Cancer of prostate ? Medications Home Medications Allopurinol (allopurinol 300 mg oral tablet)?300?Milligram?1?tablet?By Mouth?Daily Amlodipine (amLODIPine 5 mg oral tablet)?1?tab(s)?5?Milligram?By Mouth?Daily?for 90?Days Ascorbic Acid (Vitamin C 500 mg oral tablet)?1?tab(s)?500?Milligram?By Mouth?Daily Aspirin (aspirin 81 mg oral delayed release tablet)?81?Milligram?1?tablet?By Mouth?Daily Atorvastatin (atorvastatin 80 mg oral tablet)?1?tab(s)?By Mouth?Daily Carvedilol (Coreg 12.5 mg oral tablet)?12.5?Milligram?1?tablet?By Mouth?2 times aday?for 90?Days Cholecalciferol (Vitamin D3 1000 intl units oral capsule)?1?capsule?1,000?InternationalUnit?By Mouth?Daily Chondroitin-Glucosamine?1?tab(s)?By Mouth?2 times a day Cyanocobalamin (Vitamin B12)?1?tab(s)?By Mouth?Daily Dorzolamide-Timolol Ophthalmic (dorzolamide-timolol 2.23%-0.68% ophthalmic solution)?1?Drops?Eye, Right?2 times a day Duloxetine (duloxetine 30 mg oral enteric coated capsule)?1?capsule?30?Milligram?By Mouth?Daily?start taking from 11/28/21 Furosemide (furosemide 40 mg oral tablet)?40?Milligram?1?tablet?By Mouth?Every Tuesday, Tuesday and Tuesday Gabapentin (gabapentin 300 mg oral capsule)?600?Milligram?2?capsule?By Mouth?2 times a day Latanoprost Ophthalmic (latanoprost 0.005% ophthalmic solution)?1?Drops?Eye, Right?Daily at bedtime Miscellaneous Rx (rocío stockings 15 to 20)?See Instructions?rocío stockings 15-20 mmHg Multivitamin?1 tab?By Mouth?Daily Nitroglycerin (nitroglycerin 0.4 mg sublingual tablet)?1?tab(s)?0.4?Milligram?Sublingual?Every 5 minutes?as needed?for chest pain?not to exceed 3 doses/15 min--if pain persists, seek medical attention Oxycodone / Acetaminophen (acetaminophen-oxycodone 325 mg-7.5 mg oral tablet)?1?tab(s)?By Mouth?3 times a day?as needed?Pain , Severe?(UP TO THREE TIMES DAILY) Potassium Chloride (Potassium Chloride (Eqv-K-Tab) 20 mEq oral tablet, extended release)?2?tab(s)?40?Milliequivalent?By Mouth?Every Tuesday, Tuesday and Tuesday Testosterone (Testosterone Cypionate 200 mg/mL intramuscular solution)?0.2?Milliliter?40?Milligram?Intramuscular?Every Tuesday Thiamine (thiamine 100 mg oral tablet)?100?Milligram?1?tablet?By Mouth?2 times a day?for 30?Days ? Results Recent Labs BLOOD COUNT & DIFF WBC 19.5 k/mm3 (High)?? 04/25/2022 08:42 RBC 4.07 m/mm3 (Low)?? 04/25/2022 08:42 Hgb 13.0 Gm/dL (Low)?? 04/25/2022 08:42 Hct 38.4 % (Low)?? 04/25/2022 08:42 MCV 94.3 femtoliters (High)?? 04/25/2022 08:42 MCH 31.9 pg ()?? 04/25/2022 08:42 MCHC 33.9 g/dL ()?? 04/25/2022 08:42 Platelet Count 203 k/mm3 ()?? 04/25/2022 08:42 RDW-SD 47.9 femtoliters (High)?? 04/25/2022 08:42 MPV 11.8 femtoliters ()?? 04/25/2022 08:42 Nucleated RBC (Automated) 0.0 #/100 WBC'S ()?? 04/25/2022 08:42 Abs. NRBC 0.0 k/mm3 ()?? 04/25/2022 08:42 Abs. Neut 16.8 k/mm3 (High)?? 04/25/2022 08:42 Abs. Lymph 1.0 k/mm3 ()?? 04/25/2022 08:42 Abs. Callaway 1.2 k/mm3 ()?? 04/25/2022 08:42 Abs. Eo 0.0 k/mm3 ()?? 04/25/2022 08:42 Abs. Baso 0.0 k/mm3 ()?? 04/25/2022 08:42 Neut % 44.0 % ()?? 04/25/2022 08:42 Lymph % 3.0 % (Low)?? 04/25/2022 08:42 Callaway % 6.0 % ()?? 04/25/2022 08:42 Eos % 0.0 % ()?? 04/25/2022 08:42 Baso % 0.0 % ()?? 04/25/2022 08:42 Metamyelocyte % 3.0 % (High)?? 04/25/2022 08:42 Band % 42.0 % (High)?? 04/25/2022 08:42 Atypical Lymph % 2.0 % ()?? 04/25/2022 08:42 Platelet Estimate ADEQUATE ()?? 04/25/2022 08:42 ?? CARDIAC Nt-Probnp 1890 pg/mL (High)?? 04/25/2022 08:43 High Sensitivity Troponin (HSTnT) 25 ng/L (High)?? 04/25/2022 10:47 ?? CHEM GENERAL Sodium 139 mmol/L ()?? 04/25/2022 08:43 Potassium 3.0 mmol/L (Low)?? 04/25/2022 08:43 Chloride 98 mmol/L ()?? 04/25/2022 08:43 Bicarbonate Level 28 mmol/L ()?? 04/25/2022 08:43 Anion Gap 13 ()?? 04/25/2022 08:43 Glucose Level 121 mg/dL (High)?? 04/25/2022 08:43 BUN 27 mg/dL (High)?? 04/25/2022 08:43 Creatinine-Blood 1.3 mg/dL (High)?? 04/25/2022 08:43 Estimated GFR Creatinine 58 ML/MIN/1.73 M2 ()?? 04/25/2022 08:43 Calcium 8.8 mg/dL ()?? 04/25/2022 08:43 Protein, Total 5.0 Gm/dL (Low)?? 04/25/2022 12:09 Albumin 3.1 Gm/dL (Low)?? 04/25/2022 12:09 Alkaline Phosphatase 96 units/L ()?? 04/25/2022 12:09 AST (SGOT) 26 units/L ()?? 04/25/2022 12:09 ALT (SGPT) 16 units/L ()?? 04/25/2022 12:09 Bilirubin, Total 0.4 mg/dL ()?? 04/25/2022 12:09 Bilirubin, Direct 0.2 mg/dL ()?? 04/25/2022 12:09 Bilirubin, Indirect 0.2 mg/dL ()?? 04/25/2022 12:09 Lactate 1.8 mmol/L ()?? 04/25/2022 12:09 ?? COAG INR 1.2 (High)?? 04/25/2022 12:09 Protime (PT) 13.0 seconds (High)?? 04/25/2022 12:09 ?? HEME OTHER Hold Blue Top SPECIMEN DISCARDED AFTER 4 HOURS. ()?? 04/25/2022 08:42 ?? MISC. CHEMISTRY Procalcitonin 3.70 ng/mL ()?? 04/25/2022 12:09 ?? VIROLOGY Influenza A PCR NEGATIVE ()?? 04/25/2022 08:46 Influenza B PCR NEGATIVE ()?? 04/25/2022 08:46 RSV PCR NEGATIVE ()?? 04/25/2022 08:46 COVID-19 PCR Specimen Source NASAL ()?? 04/25/2022 08:46 COVID-19 PCR Result NEGATIVE ()?? 04/25/2022 08:46 ? Imaging(s) ?Chest 2 Views Frontal and Lat ?? 04/25/2022 08:19??by Gume CABEZAS, [facility] ? FINDINGS: ?? LINES AND TUBES: None. ?? LUNGS AND PLEURA: There are airspace opacities in the mid to lower lung ruth bilaterally. There is mild blunting of the right costophrenic angle compatible with a small pleural effusion. There is pulmonary vascular congestion. There is no evidence of a pneumothorax. ?? HEART, MEDIASTINUM AND TAVO: The cardiomediastinal silhouette is prominent. ?? BONES AND SOFT TISSUES: No acute abnormality. ?? IMPRESSION: ?? Bilateral patchy airspace lung opacities. Differential considerations include pneumonia versus other infectious, inflammatory or neoplastic etiologies. ?? Mild pulmonary vascular congestion. ?? Findings suggestive of a small right pleural effusion. ? EKG study * Event Display: EKG Authored Date: * Event Display: EKG Authored Date: * Event Display: ECG 12-Lead Authored Date: Please click on pdf link to open report * Event Display: ECG 12-Lead Authored Date: Ventricular Rate: 90 BPM Atrial Rate: 90 BPM P-R Interval: 190 ms QRS Duration: 90 ms Q-T Interval: 368 ms QTC Calculation(Bazett): 450 ms P [place]: 64 degrees R [place]: 1 degrees T [place]: 68 degrees Normal sinus rhythm Possible Inferior infarct , age undetermined Abnormal ECG When compared with ECG of 19-NOV-2021 03:57, T wave inversion no longer evident in Inferior leads Nonspecific T wave abnormality now evident in Lateral leads Confirmed by BRUNILDA LAUGHLIN ([id number]) on 04/25/2022 9:17:53 AM [place]: BRUNILDA LAUGHLIN Note * Event Display: Cardiac Rhythm Strips Authored Date: * Rachel Madera RN: PERFORM Event Display: Discharge/Transfer Note Hospital Authored Date: [id number] Nursing Discharge Note Entered On: 05/03/2022 15:20 EDT Performed On: 05/03/2022 15:19 EDT by Rachel Madera RN Nursing Discharge Note 2 Discharge Time : 05/03/2022 14:40 EDT Discharge Level of Care at Discharge : Homehealth/VNA Discharge VNA/Hospice/Home Care([id number]) : Juarez Thomas ([facility]) Patient Left Unit Via : Wheelchair Patient Accompanied Off Unit with : Significant other, Responsible adult DC Instructions Provided & Signed by Pt : Yes Patient Understands D/C Instructions : Yes Verbalized Understanding of D/C Plan By : Significant other Patient Instructions Discharge Signed : Yes Discharge Comments : PIV discontinued; Discharge paperwork education done; patient sent with all belongings including I.S. and acapella. Did Pt have Specialty Bed or Wound Vac : Tarsha Madera RN, Rachel - 05/03/2022 15:19 EDT * Arvind CABEZAS, Trevonedilma: MODIFY, PERFORM Event Display: Discharge/Transfer Note Hospital Authored Date: [id number] Patient: ??KRISTEN BRONSON ? Age:??71 Years?Sex:??Male?:??1950?? Patient Information Discharge Location: W4 Primary Care Physician: Eve Warren MD, Larissa Medina Admit Date/Time: 04/25/22 09:49 Discharge Disposition Discharge Disposition: ?? Discharge Diagnosis ?? Community acquired pneumonia (J18.9) Sepsis (A41.9) Acute respiratory failure with hypoxia (J96.01) Diarrhea (R19.7) Hypokalemia (E87.6) Delirium (R41.0) Acute kidney injury (N17.9) Chronic back pain (M54.9) Coronary artery disease (I25.10) Glaucoma (H40.9) HTN (hypertension) (I10) _ Discharge Medications Allopurinol (allopurinol 300 mg oral tablet)?300?Milligram?1?tablet?By Mouth?Daily Amlodipine (amLODIPine 5 mg oral tablet)?1?tab(s)?5?Milligram?By Mouth?Daily?for 90?Days Amoxicillin-Clavulanate (amoxicillin-clavulanate 875 mg-125 mg oral tablet)?875?Milligram?By Mouth?2 times a day?for 2?Days Ascorbic Acid (Vitamin C 500 mg oral tablet)?1?tab(s)?500?Milligram?By Mouth?Daily Aspirin (aspirin 81 mg oral delayed release tablet)?81?Milligram?1?tablet?By Mouth?Daily Atorvastatin (atorvastatin 80 mg oral tablet)?1?tab(s)?By Mouth?Daily Carvedilol (Coreg 12.5 mg oral tablet)?12.5?Milligram?1?tablet?By Mouth?2 times aday?for 90?Days Cholecalciferol (Vitamin D3 1000 intl units oral capsule)?1?capsule?1,000?InternationalUnit?By Mouth?Daily Chondroitin-Glucosamine?1?tab(s)?By Mouth?2 times a day Cyanocobalamin (Vitamin B12)?1?tab(s)?By Mouth?Daily Dorzolamide-Timolol Ophthalmic (dorzolamide-timolol 2.23%-0.68% ophthalmic solution)?1?Drops?Eye, Right?2 times a day Doxycycline (doxycycline monohydrate 100 mg oral tablet)?100?Milligram?By Mouth?Every 12 hours?for 2?Days Duloxetine (duloxetine 30 mg oral enteric coated capsule)?1?capsule?30?Milligram?By Mouth?Daily?start taking from 11/28/21 Furosemide (furosemide 40 mg oral tablet)?40?Milligram?1?tablet?By Mouth?Every Tuesday, Tuesday and Tuesday Gabapentin (gabapentin 300 mg oral capsule)?600?Milligram?2?capsule?By Mouth?2 times a day Latanoprost Ophthalmic (latanoprost 0.005% ophthalmic solution)?1?Drops?Eye, Right?Daily at bedtime Miscellaneous Rx (rocío stockings 15 to 20)?See Instructions?rocío stockings 15-20 mmHg Multivitamin?1 tab?By Mouth?Daily Nitroglycerin (nitroglycerin 0.4 mg sublingual tablet)?1?tab(s)?0.4?Milligram?Sublingual?Every 5 minutes?as needed?for chest pain?not to exceed 3 doses/15 min--if pain persists, seek medical attention Oxycodone / Acetaminophen (acetaminophen-oxycodone 325 mg-7.5 mg oral tablet)?1?tab(s)?By Mouth?3 times a day?as needed?Pain , Severe?(UP TO THREE TIMES DAILY) Potassium Chloride (Potassium Chloride (Eqv-K-Tab) 20 mEq oral tablet, extended release)?2?tab(s)?40?Milliequivalent?By Mouth?Every Tuesday, Tuesday and Tuesday Testosterone (Testosterone Cypionate 200 mg/mL intramuscular solution)?0.2?Milliliter?40?Milligram?Intramuscular?Every Tuesday Thiamine (thiamine 100 mg oral tablet)?100?Milligram?1?tablet?By Mouth?2 times a day?for 30?Days ? Medications Started Augmentin 875/125 Mg p.o. twice daily??for 2 more days, Doxycycline 100 mg p.o. twice daily??for 2 more days???to complete??10 days of therapy Medications Discontinued None Doses Changed None PCP Follow-Up/Heads-Up Follow-up resolution of pneumonia and diarrhea Future Appointments Tuesday 1:30 PM EDT ?? With: Gertrude SOUZA, Jesús Villareal Where: [facility] [address] [place] [address]- 2022 2:40 PM EDT ?? With: Araseli CABEZAS, Isidoro Perry Where: [facility] [address] [facility] [address] [place] [address]- Hospital Course ?? 71 yo M with a history of mild cognitive impairment/dementia, CAD, HTN, JORDIN on CPAP, chronic low back pain on opiates, gout, OCD, prostate Ca s/p prostatectomy. He comes into the hospital with cough, SOB and hypoxia. Found to have evidence of pneumonia. ?? Acute respiratory failure with hypoxia (J96.01): . Sepsis (A41.9): . Community acquired pneumonia (J18.9): ?? Presents with fever, cough and SOB. Hypoxic to 88% on room air. WBC elevated, procalcitonin level 3.7. Chest x-ray showed multifocal infiltrates. MRSA PCR positive. Extended viral respiratory panel??negative.??Strep pneumonia/ Legionella urine antigen negative. Blood cx NTD. S/p Azihtro 500 mg qd x 3 days 04/25-04/27. - IV Vanc??and Zosyn?? was started, now??deescalated to po??, -??F/u final sputum ,Blood culture results neg - Procalcitonin- 3.70 - Oxygen as needed, wean off, was on 5 l NC, weaned off now - CT chest- Bilateral groundglass opacities with trace bilateral pleural effusions. Findings most suggestive of pneumonia. Pulmonary edema is also in the differential. ?No findings to indicate interstitial lung disease. -Patient has remained afebrile,??WBC has since improved,??remains off oxygen, switched to??p.o. Augmentin and Doxy, BC, no growth, vitals remain??stable To complete??treatment with??Augmentin and doxycycline??over next??2 days,??on discharge??to complete??10 days of therapy??(given extensive??changes on??CT??chest, due to pneumonia) ?? Hypokalemia? Replete K , replete as needed mag wnl, few beats of vtach were reported, no recurrences ?? Diarrhea ?? Secondary likely to antibiotic use,??C. difficile tested negative Continues to have few loose stools, as??on antibiotics Potassium is being repleted??as needed We will give??p.o.??KCl 20 mEq??for next??few days,??while he still continues to have few loose stools Adequate hydration recommended ?? Altered mental status/agitation delirium Moderate dementia Alcohol use ?? Mental status worsened likely due to acute medical issues versus hospital- acquired delirium. Alcohol consumption has significant decreased over the last years as per with only 1-2 beers at a time and last drink about 7 days prior to admission - doubt alcohol withdrawal. - Reorientation - 1:1 - Restraints as needed (pt pulling out lines) - Avoid sedatives / benzodiazepines / antihistamines / anticholinergics.?? improved, holding off on??Leti consult, no suggestible need as patient's mental status is at baseline ?? CKD stage III ?? Baseline??creatinine of 1.3. Stable. -??Avoid nephrotoxins, -??Monitor BMP ???renal function stable Will resume Lasix as per outpatient schedule??discharge ? HTN (hypertension) (I10): ?? -??Continue amlodipine, Coreg, Lasix 3x/week ?? Coronary artery disease (I25.10): ?? - continue aspirin, statin and beta eddie ? Chronic back pain (M54.9): ?? -??scheduled oxycodone 7.5 every 8 hours along with gabapentin 600 every 12 hours. Due to patient'sconfusion, oxycodone changed to 5 mg every 8 hours as needed -??Continue scheduled gabapentin 300 every 12 hours at decreased dose Opioids as per??schedule??prior to admission, no prescriptions given ? Glaucoma (H40.9): - continue eye drops ? Discharge Planning:??home with services??as per PT recommendation ?? Above documentation was done using [employer] software, please do not hesitate to contact the author for clarification of any unintentional errors, should it be needed ? Objective Assessment and Plan ? Vital Signs?? Temperature: 97.7 DegF (05/03/22 07:00:00) Temperature Route: Oral (05/03/22 07:00:00) Pulse Rate: 84 bpm (05/03/22 07:58:00) Respiratory Rate: 18 br/min (05/03/22 07:56:00) Systolic Blood Pressure: 132 mm Hg (05/03/22 08:00:00) Diastolic Blood Pressure: 68 mm Hg (05/03/22 08:00:00) Blood pressure sites: Arm, right (05/03/22 07:00:00) Mean Arterial Pressure: 96 mm Hg (05/03/22 02:59:00) Pulse Pressure: 80 mm Hg (05/03/22 07:00:00) Oxygen Saturation:??91 %??Low (05/03/22 07:00:00) Mode of Delivery (Oxygen): Room air (05/03/22 07:00:00) Early Warning Score: 4 (05/03/22 08:16:08) ? . Physical Exam General: Alert,??awake and communicative, improved mental status,??speaking in??full sentences, frail/fatigued in no acute distress. HEENT Normocephalic. Pupils are equal, round and reactive to light. Extraocular muscles intact. Oropharynx clear, moist mucous membranes moist.?? Neck: Supple, Full range of motion. Trachea midline. No JVD or bruits. Respiratory:??Improved bilateral air entry,??scattered crackles,??decreased breath sounds at bases Cardiovascular: S1-S2 regular, no MRG Gastrointestinal: Abdomen soft, non-tender, non-distended. Normal bowel sounds. No pulsatile mass. No hepatosplenomegaly. Extremities: No lower extremity pitting pedal edema. No cyanosis or clubbing. Neurologic: Gross intact motor and sensory exam,??speaking full sentences, no obvious facial droop,??mental status improving.?? Pending Results Add On Lab Order ordered on 04/25/2022 Add On Lab Order ordered on 04/30/2022 Add On Lab Order ordered on 04/30/2022 BUN ordered on 04/30/2022 CBC w/ Differential ordered on 05/03/2022 COVID-19 (2019 Novel Coronavirus) PCR ordered on 05/03/2022 Creatinine ordered on 04/30/2022 Electrolytes ordered on 04/30/2022 Sputum Culture w/ Gram Smear ordered on 04/27/2022 Post Discharge Care Diet: Cardiac diet Activity: Ambulate with assistance ??as per PT instructions at home Code Status: ?? Full Resuscitation Condition: Good Prognosis: Good Discharge ?05/03/22 11:10:00 EDT Discharge Prescriptions ?ePrescribed, ??05/03/22 11:10:00 EDT Home Health Face to Face ^HomeHealthFTF Results Discharge Labs BACTERIOLOGY MRSA PCR Result Positive, MRSA target DNA detected. ()?? 04/27/2022 08:30 S Aureus ??PCR Result Positive, SA target DNA detected. ()?? 04/27/2022 08:30 ?? BLOOD COUNT & DIFF WBC 13.1 k/mm3 (High)?? 05/02/2022 03:28 RBC 3.78 m/mm3 (Low)?? 05/02/2022 03:28 Hgb 11.4 Gm/dL (Low)?? 05/02/2022 03:28 Hct 35.1 % (Low)?? 05/02/2022 03:28 MCV 92.9 femtoliters ()?? 05/02/2022 03:28 MCH 30.2 pg ()?? 05/02/2022 03:28 MCHC 32.5 g/dL (Low)?? 05/02/2022 03:28 Platelet Count 349 k/mm3 ()?? 05/02/2022 03:28 RDW-SD 51.2 femtoliters (High)?? 05/02/2022 03:28 MPV 10.0 femtoliters ()?? 05/02/2022 03:28 Nucleated RBC (Automated) 0.0 #/100 WBC'S ()?? 05/02/2022 03:28 Abs. NRBC 0.0 k/mm3 ()?? 05/02/2022 03:28 Abs. Neut 9.1 k/mm3 (High)?? 05/02/2022 03:28 Abs. Lymph 1.8 k/mm3 ()?? 05/02/2022 03:28 Abs. Callaway 0.9 k/mm3 ()?? 05/02/2022 03:28 Abs. Eo 0.5 k/mm3 (High)?? 05/02/2022 03:28 Abs. Baso 0.1 k/mm3 ()?? 05/02/2022 03:28 Neut % 70.0 % ()?? 05/02/2022 03:28 Lymph % 14.1 % (Low)?? 05/02/2022 03:28 Callaway % 6.7 % ()?? 05/02/2022 03:28 Eos % 3.7 % ()?? 05/02/2022 03:28 Baso % 0.6 % ()?? 05/02/2022 03:28 Promyelocyte % 1.0 % ()?? 04/29/2022 05:54 Myelocytes % 3.0 % ()?? 05/01/2022 03:32 Metamyelocyte % 4.0 % (High)?? 05/01/2022 03:32 Band % 1.0 % ()?? 05/01/2022 03:32 Atypical Lymph % 1.0 % ()?? 04/30/2022 00:30 RBC Morphology MODERATE ()?? 04/29/2022 05:54 Platelet Estimate ADEQUATE ()?? 05/01/2022 03:32 Platelet Comment MODERATE ()?? 04/28/2022 01:13 Imm Gran 4.9 % ()?? 05/02/2022 03:28 Abs. Imm Gran 0.6 k/mm3 ()?? 05/02/2022 03:28 ?? CARDIAC Nt-Probnp 1890 pg/mL (High)?? 04/25/2022 08:43 High Sensitivity Troponin (HSTnT) 25 ng/L (High)?? 04/25/2022 10:47 ?? CHEM GENERAL Sodium 143 mmol/L ()?? 05/02/2022 03:28 Potassium 3.5 mmol/L (Low)?? 05/02/2022 03:28 Chloride 103 mmol/L ()?? 05/02/2022 03:28 Bicarbonate Level 30 mmol/L (High)?? 05/02/2022 03:28 Anion Gap 10 ()?? 05/02/2022 03:28 Glucose Level 101 mg/dL (High)?? 04/29/2022 05:54 BUN 11 mg/dL ()?? 05/02/2022 03:28 Creatinine-Blood 0.9 mg/dL ()?? 05/02/2022 03:28 Estimated GFR Creatinine 87 ML/MIN/1.73 M2 ()?? 05/02/2022 03:28 Calcium 8.8 mg/dL ()?? 04/29/2022 05:54 Magnesium 2.0 mg/dL ()?? 04/30/2022 10:44 Protein, Total 5.4 Gm/dL (Low)?? 04/29/2022 05:54 Albumin 3.0 Gm/dL (Low)?? 04/29/2022 05:54 AG Ratio 1.3 ()?? 04/29/2022 05:54 Alkaline Phosphatase 139 units/L (High)?? 04/29/2022 05:54 AST (SGOT) 45 units/L (High)?? 04/29/2022 05:54 ALT (SGPT) 38 units/L ()?? 04/29/2022 05:54 Bilirubin, Total 0.7 mg/dL ()?? 04/29/2022 05:54 Bilirubin, Direct 0.2 mg/dL ()?? 04/25/2022 12:09 Bilirubin, Indirect 0.2 mg/dL ()?? 04/25/2022 12:09 Lactate 1.8 mmol/L ()?? 04/25/2022 12:09 ? COAG INR 1.2 (High)?? 04/25/2022 12:09 Protime (PT) 13.0 seconds (High)?? 04/25/2022 12:09 ?? HEME OTHER Hold Blue Top SPECIMEN DISCARDED AFTER 4 HOURS. ()?? 04/25/2022 08:42 ? MISC. CHEMISTRY Ammonia, Venous 27 ??mole/L ()?? 04/26/2022 17:25 Procalcitonin 0.65 ng/mL ()?? 04/29/2022 05:54 ?? SEROLOGY INF DISEASE C.difficile Toxin Negative. C.Difficile bacterial antigen and toxin not detected. A (N)?? 05/01/2022 14:37 Legionella pneumophila Antigen NEGATIVE ()?? 04/25/2022 13:30 S. Pneumococcus Urinary Ag NEGATIVE ()?? 04/25/2022 13:30 ? TOXICOLOGY/TDM Vancomycin Level, Random 6.7 mg/L (Low)?? 04/30/2022 10:44 ? VIROLOGY Influenza A PCR NEGATIVE ()?? 04/25/2022 08:46 Influenza B PCR NEGATIVE ()?? 04/25/2022 08:46 RSV PCR NEGATIVE ()?? 04/25/2022 08:46 Adenovirus by PCR NEGATIVE ()?? 04/27/2022 08:30 Coronavirus 229E by PCR (not COVID-19) NEGATIVE ()?? 04/27/2022 08:30 Coronavirus HKU1 by PCR (not COVID-19) NEGATIVE ()?? 04/27/2022 08:30 Coronavirus NL63 by PCR (not COVID-19) NEGATIVE ()?? 04/27/2022 08:30 Coronavirus OC43 by PCR (not COVID-19) NEGATIVE ()?? 04/27/2022 08:30 Human Metapneumovirus by PCR NEGATIVE ()?? 04/27/2022 08:30 Rhinovirus/Enterovirus by PCR NEGATIVE ()?? 04/27/2022 08:30 Influenza A by PCR NEGATIVE ()?? 04/27/2022 08:30 Influenza B by PCR NEGATIVE ()?? 04/27/2022 08:30 Parainfluenza 1 by PCR NEGATIVE ()?? 04/27/2022 08:30 Parainfluenza 2 by PCR NEGATIVE ()?? 04/27/2022 08:30 Parainfluenza 3 by PCR NEGATIVE ()?? 04/27/2022 08:30 Parainfluenza 4 by PCR NEGATIVE ()?? 04/27/2022 08:30 RSV by PCR NEGATIVE ()?? 04/27/2022 08:30 Bordetella Pertussis by PCR NEGATIVE ()?? 04/27/2022 08:30 Chlamydophila Pneumoniae by PCR NEGATIVE ()?? 04/27/2022 08:30 Mycoplasma Pneumoniae by PCR NEGATIVE ()?? 04/27/2022 08:30 COVID-19 PCR Specimen Source NASAL ()?? 04/29/2022 05:30 COVID-19 PCR Result NEGATIVE ()?? 04/29/2022 05:30 COVID-19 (SARS-CoV-2) by PCR NEGATIVE ()?? 04/27/2022 08:30 Bordetella Parapertussis by PCR NEGATIVE ()?? 04/27/2022 08:30 ? _45 minutes spent on discharge * Ladonna Mccormack RN: PERFORM Event Display: Patient Education/Instruction Authored Date: [id number] Inpatient Adult Discharge Instructions [address] [address] Name: KRISTEN BRONSON : 1950 Visit: 04/25/2022 09:49:00 Current Date: 05/03/2022 12:45 Account: [id number] Inpatient Adult Discharge Instructions We would like to thank you for allowing us to assist you with your healthcare needs. The following includes patient education materials and information regarding your injury/illness. Our entire staffstrives to provide an excellent experience for our patients and their families. PLEASE ENSURE YOU FOLLOW-UP PER THE INSTRUCTIONS BELOW! ?? YOUR OPINION IS IMPORTANT TO US! Please complete the survey you may receive by mail or email. Your feedback will be used to make improvements to the healthcare experiences of our patients and their families. Surveys are administered by [email or web address] ?? If further treatment with your primary care physician or another doctor is recommended, it is important for you to keep the appointment. Call your primary care physician or return to the Emergency Department immediately if your condition worsens, fails to improve, or new symptoms develop. If you need to find a doctor, you can call [facility] [employer] for a referral at [phone] or toll free at [phone]) or log in to [email or web address].. ?? You can view and manage your care through the patient portal or by using a health care crissy of your choosing. [employer] is a website that allows you to securely view your medical information including your hospital discharge summary, office visit summaries, medications and follow-up visits. You can also request appointments, renew medications, and request access to your medical information using a health care crissy of your choosing, or just ask a question. You can enroll at [email or web address] or register during your next office visit. You have been discharged from [facility], Patient Care Unit: W4. If you have any questions regarding these instructions after you leave, please call us and we will be happy to assist you. [facility] Your Care Team Attending Physician Mora Samuels MD Discharging Providers Mora Samuels MD Reason for Admission Cough, SOB Your Diagnosis Sepsis Pneumonia Hypoxia Acute respiratory failure with hypoxia HTN (hypertension) Coronary artery disease Glaucoma Chronic back pain Acute kidney injury Community acquired pneumonia Diarrhea Hypokalemia Delirium Tests Performed Below is a partial list of the tests performed during your hospitalization. You may have had other tests and procedures not included in this list. Please discuss all test results with your provider. Ammonia Venous Basic Metabolic Panel Blood Urea Nitrogen BUN CBC w/ Differential Cdiff Rapid Toxin Assay Comprehensive Metabolic Panel COVID-19 (2019 Novel Coronavirus) PCR COVID-19, RSV, and Flu A/B, Rapid PCR Creatinine Electrolytes HEPATIC FUNCTION PANEL High??Sensitivity??Troponin T Hold Blue Top Tube Lactate Level Legionella Antigen Urine Lytes Magnesium Level MRSA PCR Nasal Swab Potassium Level ProBNP Procalcitonin Level PT (INR) Respiratory Pathogen PCR with COVID-19 Sputum Culture w/ Gram Smear?-- Results Pending -- Strep Pneumoniae Urinary Ag VANC-RANDOM CT Chest W/O Contrast CXR Portable XR Chest 2 Views Frontal and Lat ? You will be contacted within 72 hours with your results. Primary Care Provider Larissa Griggs MD Advance Directive Health Care Proxy on File Yes - Health Care Proxy Discharge Vitals Temperature: 97.9 DegF Height: 187 cm Pulse Rate: 77 bpm Weight: 94.9 kg Respiratory Rate: 18 br/min ?? Systolic Blood Pressure: 135 mm Hg ?? Diastolic Blood Pressure: 72 mm Hg ?? Oxygen Saturation: 94 % ?? Studies Pending All tests and labs ordered during this hospital stay have been completed unless listed below. Please discuss all pending results with your provider listed above in these instructions. ?? Add On Lab Order BUN COVID-19 (2019 Novel Coronavirus) PCR Creatinine Electrolytes Sputum Culture w/ Gram Smear What to do next Instructions From Your Doctor Discharge Orders Diet:??Cardiac diet Activity:??Ambulate with assistance as per PT instructions at home Code Status:?? Full Resuscitation Condition:??Good Prognosis:??Good Scheduled Follow-Up Appointments Tuesday 1:30 PM EDT ?? With: Gertrude SOUZA, Jesús Villareal Where: [facility] [address] [place] [address]- 2022 2:40 PM EDT ?? With: Araseli CABEZAS, Isidoro Perry Where: [facility] [address] [facility] [address] [place] [address]- Discharge Medications KRISTEN BRONSON :1950 Visit Date:04/25/2022 Medications: Please continue your medications until treatment is completed or stopped by your provider. Medications not listed below should be discontinued. Discuss any questions related to medications with your provider. What How Much When Why Instructions Next Dose New Amoxicillin-Clavulanate (amoxicillin-clavulanate 875 mg-125 mg oral tablet) 875 Milligram Oral Twice a day Duration: [address] [facility]/pharmacy #[id number] Tonight 8pm New Doxycycline (doxycycline monohydrate 100 mg oral tablet) 100 Milligram Oral Every 12 hours Duration: [address] [facility]/pharmacy #[id number] Tonight 8pm Unchanged Allopurinol (allopurinol 300 mg oral tablet) 1 tab(s) Oral Daily Tuesday Unchanged Amlodipine (amLODIPine 5 mg oral tablet) 1 tab(s) Oral Daily Duration: 90 Days Tuesday Unchanged Ascorbic Acid (Vitamin C 500 mg oral tablet) 1 tab(s) Oral Daily Tuesday Unchanged Aspirin (aspirin 81 mg oral delayed release tablet) 1 tab(s) Oral Daily Tuesday Unchanged Atorvastatin (atorvastatin 80 mg oral tablet) 1 tab(s) Oral Daily Tuesday Unchanged Carvedilol (Coreg 12.5 mg oral tablet) 1 tab(s) Oral Twice a day Duration: 90 Days Tonight 9pm Unchanged Cholecalciferol (Vitamin D3 1000 intl units oral capsule) 1 capsule Oral Daily Tuesday Unchanged Chondroitin-Glucosamine 1 tab(s) Oral Twice a day Tonight 9pm Unchanged Cyanocobalamin (Vitamin B12) 1 tab(s) Oral Daily Tuesday Unchanged Dorzolamide-Timolol Ophthalmic (dorzolamide-timolol 2.23%-0.68% ophthalmic solution) 1 Drops Right eye Twice a day Tonight 9pm Unchanged Duloxetine (duloxetine 30 mg oral enteric coated capsule) 1 capsule Oral Daily ?? Tuesday 9a Unchanged Furosemide (furosemide 40 mg oral tablet) 1 tab(s) Oral Tuesday, Tuesday and Tuesday 9am Unchanged Gabapentin (gabapentin 300 mg oral capsule) 2 capsule Oral Twice a day Tonight 9pm Unchanged Latanoprost Ophthalmic (latanoprost 0.005% ophthalmic solution) 1 Drops Right eye Daily at Bedtime Tonight 9pm Unchanged Multivitamin 1 tab Oral Daily Tuesday Unchanged Nitroglycerin (nitroglycerin 0.4 mg sublingual tablet) 1 tab(s) Sublingual Every 5 minutes as needed for for chest pain Coronary artery disease not to exceed 3 doses/ 15 min--if pain persists, seek medical attention ?? Unchanged Oxycodone / Acetaminophen (acetaminophen-oxycodone 325 mg-7.5 mg oral tablet) 1 tab(s) Oral 3 times a day as needed for Pain , Severe (UP TO THREE TIMES DAILY) ?? as needed Unchanged Potassium Chloride (Potassium Chloride (Eqv-K-Tab) 20 mEq oral tablet, extended release) 2 tab(s) Oral Tuesday, Tuesday and Tuesday 9a Unchanged Testosterone (Testosterone Cypionate 200 mg/ mL intramuscular solution) 0.2 Milliliter Intramuscular Every Tuesday Unchanged Thiamine (thiamine 100 mg oral tablet) 1 tab(s) Oral Twice a day Duration: 30 Days Tonight 9pm Pharmacy Information [facility]/pharmacy #[id number]: [address], [place] [id number] [phone] - 2011 Test Results Below is a partial list of the most recent Laboratory test results done prior to this discharge. You may have had other tests and procedures not included in this list. Please discuss all test resultswith your provider. Ammonia Venous (04/26/2022) ???Ammonia, Venous - 27 ??mole/L Basic Metabolic Panel (04/25/2022) ???Sodium - 139 mmol/L???Potassium - 3.0 mmol/L???Chloride - 98 mmol/L???Bicarbonate Level - 28 mmol/L???Anion Gap - 13???Glucose Level - 121 mg/dL???BUN - 27 mg/dL???Creatinine-Blood - 1.3 mg/dL???Estimated GFR Creatinine - 58 ML/MIN/1.73 M2???Calcium - 8.8 mg/dL Blood Urea Nitrogen (04/26/2022) ???BUN - 28 mg/dL BUN (05/03/2022) ???BUN - 8 mg/dL CBC w/ Differential (05/03/2022) ???WBC - 11.6 k/mm3???RBC - 3.79 m/mm3???Hgb - 11.7 Gm/dL???Hct - 35.7 %???MCV - 94.2 femtoliters???MCH - 30.9 pg???MCHC - 32.8 g/dL???Platelet Count - 395 k/mm3???RDW-SD - 52.9 femtoliters???MPV - 10.4 femtoliters???Nucleated RBC (Automated) - 0.0 #/100 WBC'S???Abs. NRBC - 0.0 k/mm3???Abs. Neut - 8.1 k/mm3???Abs. Lymph - 1.8 k/mm3???Abs. Callaway - 0.7 k/mm3???Abs. Eo - 0.6 k/mm3???Abs. Baso - 0.1 k/mm3???Neut % - 70.2 %???Lymph % - 15.8 %???Callaway % - 5.7 %???Eos % - 4.9 %???Baso % - 0.6 %???Imm Gran - 2.8 %???Abs. Imm Gran - 0.3 k/mm3 Cdiff Rapid Toxin Assay (05/01/2022) ???C.difficile Toxin - Negative. C.Difficile bacterial antigen and toxin not detected. A Comprehensive Metabolic Panel (04/29/2022) ???Sodium - 143 mmol/L???Potassium - 3.1 mmol/L???Chloride - 99 mmol/L???Bicarbonate Level - 30 mmol/L???Anion Gap - 14???Glucose Level - 101 mg/dL???BUN - 17 mg/dL???Creatinine-Blood - 1.0 mg/dL???Estimated GFR Creatinine - 82 ML/MIN/1.73 M2???Calcium - 8.8 mg/dL???Protein, Total - 5.4 Gm/dL???Albumin - 3.0 Gm/dL???AG Ratio - 1.3???Alkaline Phosphatase - 139 units/L???AST (SGOT) - 45 units/L???ALT (SGPT) - 38 units/L???Bilirubin, Total - 0.7 mg/dL COVID-19 (2019 Novel Coronavirus) PCR (04/29/2022) ???COVID-19 PCR Specimen Source - NASAL???COVID-19 PCR Result - NEGATIVE COVID-19, RSV, and Flu A/B, Rapid PCR (04/25/2022) ???Influenza A PCR - NEGATIVE???Influenza B PCR - NEGATIVE???RSV PCR - NEGATIVE???COVID-19 PCR Specimen Source - NASAL???COVID-19 PCR Result - NEGATIVE Creatinine (05/03/2022) ???Creatinine-Blood - 0.9 mg/dL???Estimated GFR Creatinine - 90 ML/MIN/1.73 M2 Electrolytes (05/03/2022) ???Sodium - 139 mmol/L???Potassium - 3.4 mmol/L???Chloride - 100 mmol/L???Bicarbonate Level - 27 mmol/L???Anion Gap - 12 HEPATIC FUNCTION PANEL (04/25/2022) ???Protein, Total - 5.0 Gm/dL???Albumin - 3.1 Gm/dL???Alkaline Phosphatase - 96 units/L???AST (SGOT) - 26 units/L???ALT (SGPT) - 16 units/L???Bilirubin, Total - 0.4 mg/dL???Bilirubin, Direct - 0.2 mg/dL???Bilirubin, Indirect - 0.2 mg/dL High??Sensitivity??Troponin T (04/25/2022) ???High Sensitivity Troponin (HSTnT) - 25 ng/L Hold Blue Top Tube (04/25/2022) ???Hold Blue Top - SPECIMEN DISCARDED AFTER 4 HOURS. Lactate Level (04/25/2022) ???Lactate - 1.8 mmol/L Legionella Antigen Urine (04/25/2022) ???Legionella pneumophila Antigen - NEGATIVE Lytes (04/28/2022) ???Sodium - 142 mmol/L???Potassium - 3.3 mmol/L???Chloride - 99 mmol/L???Bicarbonate Level - 33 mmol/L???Anion Gap - 10 Magnesium Level (04/30/2022) ???Magnesium - 2.0 mg/dL MRSA PCR Nasal Swab (04/27/2022) ???MRSA PCR Result - Positive, MRSA target DNA detected.???S Aureus PCR Result - Positive, SA target DNA detected. Potassium Level (04/30/2022) ???Potassium - 3.2 mmol/L ProBNP (04/25/2022) ???Nt-Probnp - 1890 pg/mL Procalcitonin Level (04/29/2022) ???Procalcitonin - 0.65 ng/mL PT (INR) (04/25/2022) ???INR - 1.2???Protime (PT) - 13.0 seconds Respiratory Pathogen PCR with COVID-19 (04/27/2022) ???Adenovirus by PCR - NEGATIVE???Coronavirus 229E by PCR (not COVID-19) - NEGATIVE???Coronavirus HKU1 by PCR (not COVID-19) - NEGATIVE???Coronavirus NL63 by PCR (not COVID-19) - NEGATIVE???Coronavirus OC43 by PCR (not COVID-19) - NEGATIVE???Human Metapneumovirus by PCR - NEGATIVE???Rhinovirus/Enterovirus by PCR - NEGATIVE???Influenza A by PCR - NEGATIVE???Influenza B by PCR - NEGATIVE???Parainfluenza 1 by PCR - NEGATIVE???Parainfluenza 2 by PCR - NEGATIVE???Parainfluenza 3 by PCR - NEGATIVE???Parainfluenza 4 by PCR - NEGATIVE???RSV by PCR - NEGATIVE???Bordetella Pertussis by PCR - NEGATIVE??? Chlamydophila Pneumoniae by PCR - NEGATIVE???Mycoplasma Pneumoniae by PCR - NEGATIVE???COVID-19 (SARS-CoV-2) by PCR - NEGATIVE???Bordetella Parapertussis by PCR - NEGATIVE Strep Pneumoniae Urinary Ag (04/25/2022) ???S. Pneumococcus Urinary Ag - NEGATIVE VANC-RANDOM (04/30/2022) ???Vancomycin Level, Random - 6.7 mg/L Allergies (NKA means No Known Allergies) NKA Problems Active Problems??(5) Chronic kidney disease, stage 3?? Coronary artery disease?? COVID-19?? Hypertension?? Hypokalemia?? Education Materials Below is the list of Educational Leaflet Providered with your Discharge Instructions. Valuables and Belongings I fully understand and agree that [facility] accepts no responsibility for all my personal property including clothing, toilet articles, radios, jewelry, dentures, hearing aids, rings, money, or any other property that is in my possession or is brought to me after admission. I understand certain valuables may be placed in a hospital safe for a short period of time. I understand that the hospital is not liable for loss or damage due to accident, fire, or other natural occurrence while said property is in the safe. I accept full responsibility for any personal property that I keep with me, and will not hold the hospital responsible in case of loss or disappearance. I acknowledge that i have been encouraged to send valuables and belongings home. ?? Review of Valuable and Belonging List: With patient, With witness Possessions released to: belongings sent to w4 04/28 at 1500 Date for Pt to Sign Valuables/Belongings: 04/28/22 15:06:00 ?? Other Discharge Information ? Case Management Discharge Plan?? Discharge Plan?? Discharge Agency Information?? Discharge Level of Care at Discharge: Homehealth/VNA Name of Agency #1: [facility] ([facility]) Phone:[phone]- Discharge VNA/Hospice/Home Care: [facility] ([facility]) Service Categories #1: Physical Therapy, Retirement ?? Service Comments #1: [facility] will contact you 24/48hrs after discharge to arrange an in home visit. If you do not hear from them with in this time frame, please call the number provided ?? Pulmonary Rehab Status?? Pulmonary Rehab Discharge Status?? CPAP/BiPAP Mask Type: Full CPAP/BiPAP Mask Size: Medium Respiratory Rate: 18 br/min ? Common Emergency Awareness Tips IS IT A STROKE? Act FAST and Check for these signs: FACE Does the face look uneven? ARM Does one arm drift down? SPEECH Does their speech sound strange? TIME Call at any sign of stroke ?? Heart Attack Signs Chest discomfort: Most heart attacks involve discomfort in the center of the chest and lasts more than a few minutes, or goes away and comes back. It can feel like uncomfortable pressure, squeezing, fullness or pain. Discomfort in upper body: Symptoms can include pain or discomfort in one or both arms, back, neck, jaw or stomach. Shortness of breath: With or without discomfort. Other signs: Breaking out in a cold sweat, nausea, or lightheaded. Remember, MINUTES DO MATTER. If you experience any of these heart attack warning signs, call to get immediate medical attention! ?? Smoking can increase your chances of developing chronic health problems and can cause harmful effects to other family members in your house. If you smoke, you are strongly encouraged to quit. Please call [facility] at [phone] or [phone] ([phone]) or log in to [email or web address] for referrals to smoking cessation programs. ?? The National Suicide Prevention Hotline is available 13/09 if you or someone you know needs to find a reason to keep living. By calling 5-384-954-[employer] (4323) you'll be connected to a skilled, trained counselor at a crisis center in your area. INPATIENT DISCHARGE INSTRUCTIONS SIGNATURE PAGE AIYANAJERAMIEKRISTEN Location:[facility] Registration Date and Time:04/25/2022 09:49 EST Primary Care Physician: Eve Warren MD, Larissa Medina, I KRISTEN BRONSON, have received the above patient education materials/instructions and have verbalized understanding. If ambulance or transport services are being used I further acknowledge being given a choice of service. ?? If you need to contact me, please call me at this number: . Patient/Hostage Negotiator Name: Patient/Hostage Negotiator Signature: Relationship to Patient: Witness Name/Signature: Date: * [facility] , CIS S: TRANSCRIBE Gume CABEZAS, Shellie O: VERIFY Event Display: Result: Authored Date: [id number] Chest 2 Views Frontal and Lat Hx of Present Illness: reports having a sinus infection for the past 3d. endorses h a, sob, cough, nasal congestion, sore throat, headache. 101.5 temp upon arrival. denies use of antipyretics.; Reason: Other:; Shortness of Breath, Fever; Clinical Question(s): Pneumonia COMPARISON: None. FINDINGS: LINES AND TUBES: None. LUNGS AND PLEURA: There are airspace opacities in the mid to lower lung ruth bilaterally. There is mild blunting of the right costophrenic angle compatible with a small pleural effusion. There is pulmonary vascular congestion. There is no evidence of a pneumothorax. HEART, MEDIASTINUM AND TAVO: The cardiomediastinal silhouette is prominent. BONES AND SOFT TISSUES: No acute abnormality. IMPRESSION: Bilateral patchy airspace lung opacities. Differential considerations include pneumonia versus other infectious, inflammatory or neoplastic etiologies. Mild pulmonary vascular congestion. Findings suggestive of a small right pleural effusion. WSN: [id number] Ordering Physician: Rossy Fong Dictated By: Shellie Dunaway MD Dictated Date/Time: 04/25/22 8:32 am Reviewed By: Shellie Dunaway MD Signed By: Shellie Dunaway MD Signed Date/Time: 04/25/22 8:32 am Transcribed By: MY Transcribed Date/Time: 04/25/22 8:27 am Hospital Progress note * Mora Samuels MD: PERFORM Event Display: Progress Note Hospital Authored Date: Patient: ??KRISTEN BRONSON ? Age:??71 Years?Sex:??Male?:??1950?? Subjective Saw patient at bedside??05/02 Feeling much better Patient wants to go home Leukocytosis improved,??however??PT to reevaluate patient PT OT evaluated patient later in the evening,??patient was able to navigate stairs, home with services??was later recommended However??per coordination with in the morning,??she wanted??home services to be set up,??due to being on later discharge in the evening,?? was??not comfortable getting him home??in the evening Review of Systems Denies any discomfort Improved cough No fevers/respiratory discomfort No acute events reported per staff Objective Vital Signs?? Temperature: 98.1 DegF (05/02/22 15:48:00) Temperature Route: Oral (05/02/22 15:48:00) Pulse Rate: 73 bpm (05/02/22 15:48:00) Respiratory Rate: 18 br/min (05/02/22 15:48:00) Systolic Blood Pressure:??149 mm Hg??High (05/02/22 15:48:00) Diastolic Blood Pressure: 59 mm Hg (05/02/22 15:48:00) Blood pressure sites: Arm, right (05/02/22 15:48:00) Mean Arterial Pressure: 89 mm Hg (05/02/22 15:48:00) Pulse Pressure: 90 mm Hg (05/02/22 15:48:00) Oxygen Saturation: 99 % (05/02/22 15:48:00) Mode of Delivery (Oxygen): Room air (05/02/22 15:48:00) Early Warning Score: 0 (05/02/22 15:48:13) ? Physical Exam General: Alert,??awake and communicative, improved mental status,??speaking in??full sentences, frail/fatigued in no acute distress. HEENT Normocephalic. Pupils are equal, round and reactive to light. Extraocular muscles intact. Oropharynx clear, moist mucous membranes moist.?? Neck: Supple, Full range of motion. Trachea midline. No JVD or bruits. Respiratory:??Improved bilateral air entry,??scattered crackles,??decreased breath sounds at bases Cardiovascular: S1-S2 regular, no MRG Gastrointestinal: Abdomen soft, non-tender, non-distended. Normal bowel sounds. No pulsatile mass. No hepatosplenomegaly. Extremities: No lower extremity pitting pedal edema. No cyanosis or clubbing. Neurologic: Gross intact motor and sensory exam,??speaking full sentences, no obvious facial droop,??mental status improving.?? Results Abnormal Labs ?? BLOOD COUNT & DIFF ??Abs. Eo ??0.5 k/mm3 (High) ??05/02/2022 03:28 ??Abs. Imm Gran ??0.6 k/mm3 () ??05/02/2022 03:28 ??Abs. NRBC ??0.0 k/mm3 () ??05/02/2022 03:28 ??Abs. Neut ??9.1 k/mm3 (High) ??05/02/2022 03:28 ??Hct ??35.1 % (Low) ??05/02/2022 03:28 ??Hgb ??11.4 Gm/dL (Low) ??05/02/2022 03:28 ??Imm Gran ??4.9 % () ??05/02/2022 03:28 ??Lymph % ??14.1 % (Low) ??05/02/2022 03:28 ??MCHC ??32.5 g/dL (Low) ??05/02/2022 03:28 ??Nucleated RBC (Automated) ??0.0 #/100 WBC'S () ??05/02/2022 03:28 ??RBC ??3.78 m/mm3 (Low) ??05/02/2022 03:28 ??RDW-SD ??51.2 femtoliters (High) ??05/02/2022 03:28 ??WBC ??13.1 k/mm3 (High) ??05/02/2022 03:28 ? CHEM GENERAL ??Bicarbonate Level ??30 mmol/L (High) ??05/02/2022 03:28 ??Estimated GFR Creatinine ??87 ML/MIN/1.73 M2 () ??05/02/2022 03:28 ??Potassium ??3.5 mmol/L (Low) ??05/02/2022 03:28 ? Note: Critical results are displayed in red. ? CBC, CBC w/Diff?? CBC?? Differential?? WBC:??13.1 k/mm3??High (:28) Abs. Neut:??9.1 k/mm3??High (:) RBC:??3.78 m/mm3??Low (:28) Abs. Lymph: 1.8 k/mm3 (:28) Hct:??35.1 %??Low (:28) Abs. Callaway: 0.9 k/mm3 (:) RDW-SD:??51.2 femtoliters??High (:28) Abs. Eo:??0.5 k/mm3??High (:28) Nucleated RBC (Automated): 0 #/100 WBC'S (:) Abs. Baso: 0.1 k/mm3 (:) Abs. NRBC: 0 k/mm3 (:) Neut %: 70 % (:) ?? Lymph %:??14.1 %??Low (:) ?? Callaway %: 6.7 % (:28) ?? Eos %: 3.7 % (:) ?? Baso %: 0.6 % (:) ?? Imm Gran: 4.9 % (:) ?? Abs. Imm Gran: 0.6 k/mm3 (:) ? BMP, Mg, and Phos Anion Gap: 10 (:) Bicarbonate Level:??30 mmol/L??High (:) BUN: 11 mg/dL (:) Chloride: 103 mmol/L (:) Creatinine-Blood: 0.9 mg/dL (:) Estimated GFR Creatinine: 87 ML/MIN/1.73 M2 (:) Potassium:??3.5 mmol/L??Low (:) Sodium: 143 mmol/L (:) ?? LFT?? No qualifying data available. ?? Assessment/Plan 71 yo M with a history of mild cognitive impairment/dementia, CAD, HTN, JORDIN on CPAP, chronic low back pain on opiates, gout, OCD, prostate Ca s/p prostatectomy. He comes into the hospital with cough, SOB and hypoxia. Found to have evidence of pneumonia. ?? Acute respiratory failure with hypoxia (J96.01): . Sepsis (A41.9): . Pneumonia (J18.9): ?? Presents with fever, cough and SOB. Hypoxic to 88% on room air. WBC elevated, procalcitonin level 3.7. Chest x-ray showed multifocal infiltrates. MRSA PCR positive. Extended viral respiratory panel??negative.??Strep pneumonia/ Legionella urine antigen negative. Blood cx NTD. S/p Azihtro 500 mg qd x 3 days 04/25-04/27. - IV Vanc??and Zosyn?? was started, now??deescalated to po??, -??F/u final sputum ,Blood culture results neg - Procalcitonin- 3.70 - Oxygen as needed, wean off, was on 5 l NC, weaned off now - CT chest- Bilateral groundglass opacities with trace bilateral pleural effusions. Findings most suggestive of pneumonia. Pulmonary edema is also in the differential. ?No findings to indicate interstitial lung disease. ?? 05/02-improved WBC,??remains??afebrile, off oxygen, on p.o. Augmentin and Doxy, BC remain??neg , vitals stable ?? Hypokalemia? Replete K , replete as needed ?? mag wnl, few beats of vtach were reported ?? Diarrhea ?? Few loose stools yesterday Diarrhea worsened today replete electrolytes,??rule out Cdiff ?? 05/02-C. difficile negative, diarrhea resolved ?? Altered mental status/agitation delirium Moderate dementia Alcohol use ?? Mental status worsened likely due to acute medical issues versus hospital- acquired delirium. Alcohol consumption has significant decreased over the last years as per with only 1-2 beers at a time and last drink about 7 days prior to admission - doubt alcohol withdrawal. - Reorientation - 1:1 - Restraints as needed (pt pulling out lines) - Avoid sedatives / benzodiazepines / antihistamines / anticholinergics.?? 04/30- improved, holding Leti to see him for now, may see him on Tuesday if needed, no aguggestible need currently ?? CKD stage III ?? Baseline??creatinine of 1.3. Stable. -??Avoid nephrotoxins, -??Monitor BMP ???renal function stable Will resume Lasix as per outpatient schedule ?? Hypokalemia ?? Replete K , monitor electrolytes ?? 05/02???replete potassium ?? HTN (hypertension) (I10): ?? -??Continue amlodipine, Coreg, Lasix 3x/week ?? Coronary artery disease (I25.10): ?? - continue aspirin, statin and beta eddie ? Chronic back pain (M54.9): ?? -??scheduled oxycodone 7.5 every 8 hours along with gabapentin 600 every 12 hours. Due to patient'sconfusion, oxycodone changed to 5 mg every 8 hours as needed -??Continue scheduled gabapentin 300 every 12 hours at decreased dose ? Glaucoma (H40.9): - continue eye drops ? Discharge Planning:?? is planning on taking him back home tomorrow,??PT evaluated patient, recommends??home with services??(patient was able to navigate stairs),??plan to switch to??PO abx,, diarrhea??resolved??C. difficile negative,, electrolyte repletion , ? * Chantal Saucedo RN: VERIFY, PERFORM, SIGN Event Display: Progress Note Hospital Authored Date: Patient: KRISTEN BRONSON Age: 71 years Sex: Male : 1950 Associated Diagnoses: None Author: Chantal Saucedo RN Findings Narrative/Incidental Patient is alert and oriented times 4. Patient took all medications this morning and refused cough syrup. Patient is in a chair watching tv. Call ordaz is within reach. Patient is on telly nsr hr 78. Patient is a possible discharge today and will work with pt today, was at the bedside with patient. Patient is stable at this time safety precautions in place no interventions needed at this moment. . Discharge Information Rehabilitation Discharge : Rehab Discharge Index 04/29/2022 9:00 EST Comments on treatment indicated 71 y/o M presents to the hospital with cough, SOBand hypoxia. Found to have evidence of sepsis secondary to community acquired pneumonia WBAT. See for transfers, gait, therex and balance. Rec rehab. Walker: distance 10-20 Distance pt will ambulate ~50' with RW and good balance Full chart review completed Yes Hospital course Hospital course Plan of care PT Gait training, Transfer training, Therapeutic exercise, Functional Activities, Balance training * Arvind CABEZAS, Mora: PERFORM Event Display: Progress Note Hospital Authored Date: [id number] Patient: ??KRISTEN BRONSON ? Age:??71 Years?Sex:??Male?:??1950?? Subjective Saw patient at bedside??3/ Continues to have diarrhea has had 3??loose??watery stools this morning Patient??was weaned off oxygen,??will switch to p.o. antibiotics this morning,??as leukocytosis improving, afebrile, C. difficile??testing??pending,??under isolation Review of Systems Denies any abdominal discomfort Denies any nausea vomiting Improved??mental status,??breathing status, Continues to have some loose watery stools, no bleeding in stools No fevers reported Objective Vital Signs?? Temperature: 97.7 DegF (05/01/22 07:42:00) Temperature Route: Oral (05/01/22 07:42:00) Pulse Rate: 87 bpm (05/01/22 09:13:00) Respiratory Rate: 18 br/min (05/01/22 12:58:00) Systolic Blood Pressure:??140 mm Hg??High (05/01/22 09:13:00) Systolic Blood Pressure:??140 mm Hg??High (05/01/22 09:13:00) Diastolic Blood Pressure: 70 mm Hg (05/01/22 09:13:00) Diastolic Blood Pressure: 70 mm Hg (05/01/22 09:13:00) Blood pressure sites: Arm, left (05/01/22 07:42:00) Mean Arterial Pressure: 93 mm Hg (05/01/22 07:42:00) Pulse Pressure: 70 mm Hg (05/01/22 07:42:00) Oxygen Saturation: 95 % (05/01/22 07:42:00) Mode of Delivery (Oxygen): Room air (05/01/22 07:42:00) Early Warning Score: 7 (05/01/22 13:00:29) ? Physical Exam General: Alert,??awake and communicative, improved mental status,??speaking in??full sentences, frail/fatigued in no acute distress. HEENT Normocephalic. Pupils are equal, round and reactive to light. Extraocular muscles intact. Oropharynx clear, moist mucous membranes moist.?? Neck: Supple, Full range of motion. Trachea midline. No JVD or bruits. Respiratory:??Improved bilateral air entry,??scattered crackles,??decreased breath sounds at bases Cardiovascular: S1-S2 regular, no MRG Gastrointestinal: Abdomen soft, non-tender, non-distended. Normal bowel sounds. No pulsatile mass. No hepatosplenomegaly. Extremities: No lower extremity pitting pedal edema. No cyanosis or clubbing. Neurologic: Gross intact motor and sensory exam,??speaking full sentences, no obvious facial droop,??mental status improving.?? Results Abnormal Labs ?? BLOOD COUNT & DIFF ??Abs. Baso ??0.2 k/mm3 (High) ??05/01/2022 03:32 ??Abs. NRBC ??0.0 k/mm3 () ??05/01/2022 03:32 ??Abs. Neut ??14.5 k/mm3 (High) ??05/01/2022 03:32 ??Hct ??35.0 % (Low) ??05/01/2022 03:32 ??Hgb ??11.6 Gm/dL (Low) ??05/01/2022 03:32 ??Lymph % ??9.0 % (Low) ??05/01/2022 03:32 ??Metamyelocyte % ??4.0 % (High) ??05/01/2022 03:32 ??Callaway % ??2.0 % (Low) ??05/01/2022 03:32 ??Myelocytes % ??3.0 % () ??05/01/2022 03:32 ??Neut % ??78.0 % (High) ??05/01/2022 03:32 ??Nucleated RBC (Automated) ??0.1 #/100 WBC'S () ??05/01/2022 03:32 ??Platelet Estimate ??ADEQUATE () ??05/01/2022 03:32 ??RBC ??3.78 m/mm3 (Low) ??05/01/2022 03:32 ??RDW-SD ??50.0 femtoliters (High) ??05/01/2022 03:32 ??WBC ??18.3 k/mm3 (High) ??05/01/2022 03:32 ? CHEM GENERAL ??Bicarbonate Level ??30 mmol/L (High) ??05/01/2022 03:32 ??Estimated GFR Creatinine ??80 ML/MIN/1.73 M2 () ??05/01/2022 03:32 ??Potassium ??3.2 mmol/L (Low) ??05/01/2022 03:32 ? Note: Critical results are displayed in red. ? CBC, CBC w/Diff?? CBC?? Differential?? WBC:??18.3 k/mm3??High (03:32) Abs. Neut:??14.5 k/mm3??High (03:32) RBC:??3.78 m/mm3??Low (03:32) Abs. Lymph: 1.7 k/mm3 (03:32) Hct:??35 %??Low (03:32) Abs. Callaway: 0.4 k/mm3 (03:32) RDW-SD:??50 femtoliters??High (03:32) Abs. Eo: 0.4 k/mm3 (03:32) Nucleated RBC (Automated): 0.1 #/100 WBC'S (:32) Abs. Baso:??0.2 k/mm3??High (03:32) Abs. NRBC: 0 k/mm3 (03:32) Neut %:??78 %??High (03:32) ?? Lymph %:??9 %??Low (03:32) ?? Callaway %:??2 %??Low (03:32) ?? Eos %: 2 % (03:32) ?? Baso %: 1 % (03:32) ?? Myelocytes %: 3 % (03:32) ?? Metamyelocyte %:??4 %??High (03:32) ?? Band %: 1 % (03:32) ?? Platelet Estimate: ADEQUATE (03:32) ? BMP, Mg, and Phos Anion Gap: 11 (03:32) Bicarbonate Level:??30 mmol/L??High (03:32) BUN: 12 mg/dL (03:32) Chloride: 99 mmol/L (03:32) Creatinine-Blood: 1 mg/dL (03:32) Estimated GFR Creatinine: 80 ML/MIN/1.73 M2 (03:32) Potassium:??3.2 mmol/L??Low (03:32) Sodium: 140 mmol/L (03:32) ?? LFT?? No qualifying data available. ?? Assessment/Plan ?? 71 yo M with a history of mild cognitive impairment/dementia, CAD, HTN, JORDIN on CPAP, chronic low back pain on opiates, gout, OCD, prostate Ca s/p prostatectomy. He comes into the hospital with cough, SOB and hypoxia. Found to have evidence of pneumonia. ?? Acute respiratory failure with hypoxia (J96.01): . Sepsis (A41.9): . Pneumonia (J18.9): ?? Presents with fever, cough and SOB. Hypoxic to 88% on room air. WBC elevated, procalcitonin level 3.7. Chest x-ray showed multifocal infiltrates. MRSA PCR positive. Extended viral respiratory panel??negative.??Strep pneumonia/ Legionella urine antigen negative. Blood cx NTD. S/p Azihtro 500 mg qd x 3 days 04/25-04/27. - IV Vanc??and Zosyn?? was started, now??deescalated to po??, -??F/u final sputum ,Blood culture results neg - Procalcitonin- 3.70 - Oxygen as needed, wean off, was on 5 l NC, weaned off now - CT chest- Bilateral groundglass opacities with trace bilateral pleural effusions. Findings most suggestive of pneumonia. Pulmonary edema is also in the differential. ?No findings to indicate interstitial lung disease. ?? 05/01-?? improving WBC ,afebrile, clinically improving, weaned off??O 2 , will dc vanc and zosyn for now, change to Augmentin and Doxy, BC neg , vitals stable ?? Hypokalemia? Replete K , replete as needed ?? mag wnl, few beats of vtach were reported ?? Diarrhea ?? Few loose stools yesterday Diarrhea worsened today replete electrolytes,??rule out Cdiff ?? Altered mental status/agitation delirium Moderate dementia Alcohol use ?? Mental status worsened likely due to acute medical issues versus hospital- acquired delirium. Alcohol consumption has significant decreased over the last years as per with only 1-2 beers at a time and last drink about 7 days prior to admission - doubt alcohol withdrawal. - Reorientation - 1:1 - Restraints as needed (pt pulling out lines) - Avoid sedatives / benzodiazepines / antihistamines / anticholinergics.?? 04/30- improved, holding Leti to see him for now, may see him on Tuesday if needed, no aguggestible need currently ?? CKD stage III ?? Baseline??creatinine of 1.3. Stable. -??Avoid nephrotoxins, -??Monitor BMP ???renal function stable ?? Hypokalemia ?? Replete K , monitor electrolytes ?? HTN (hypertension) (I10): ?? -??Continue amlodipine, Coreg, Lasix 3x/week ?? Coronary artery disease (I25.10): ?? - continue aspirin, statin and beta eddie ? Chronic back pain (M54.9): ?? -??scheduled oxycodone 7.5 every 8 hours along with gabapentin 600 every 12 hours. Due to patient'sconfusion, oxycodone changed to 5 mg every 8 hours as needed -??Continue scheduled gabapentin 300 every 12 hours at decreased dose ? Glaucoma (H40.9): - continue eye drops ? Discharge Planning:?? is planning on taking him back home once recovered,??PT - recommends rehab, switched to PO abx,, diarrhea ongoing, electrolyte repletion , pending Cdiff ? Portable XR Chest Views * [facility] , CIS S: TRANSCRIBE Moises CABEZAS, Toby: NAOMI Servin MD, Gerson V: VERIFY Event Display: Result: Authored Date: Chest Portable INDICATION: Shortness of breath, increased oxygen requirement. COMPARISON: Multiple prior radiographs, most recent 04/25/2022. FINDINGS: LINES AND TUBES: None. LUNGS AND PLEURA: Slightly increased airspace opacities in the mid and lower lung regions. New hazy opacification of the right upper lung. Small left pleural effusion. No pneumothorax. HEART, MEDIASTINUM AND TAVO: Mild prominence of the cardiac silhouette, unchanged. BONES AND SOFT TISSUES: No acute abnormality. IMPRESSION: Slightly increased airspace opacities in the mid and lower lung regions as well as new hazy opacification of the right upper lung, concerning for worsening pneumonia. Small left pleural effusion. I have personally reviewed the images and I agree with this report. WSN: [id number] Ordering Physician: Mora Samuels Dictated By: Toby De Leon MD Dictated Date/Time: 04/30/22 11:33 a Reviewed By: Gerson Servin MD, V Signed By: Gerson Servin MD, V Signed Date/Time: 04/30/22 11:38 am Transcribed By: MY Transcribed Date/Time: 04/30/22 11:[address] Chest WO contrast * [facility] , CIS S: TRANSCRIBE Adam Rene MD: VERIFY Event Display: Result: Authored Date: [id number] CT Chest W/O Contrast INDICATION: Reason: Other:; Respiratory Failure; Clinical Question(s): Chronic Interstitial Lung Disease; Order Comment: TECHNIQUE: Helical CT scan of the chest without IV contrast, formatted in 3 planes. Weight-based protocol was performed using automatic exposure control. CTDIvol Body: 7.60 mGy, DLP Body: 490 mGy*cm. COMPARISON: None. FINDINGS: [employer] Supervisor view findings, lines and tubes: None. Trachea and airways: Patent without evidence of tracheal or endobronchial lesion. Lungs and pleura: There are prominent bilateral groundglass opacities both lungs. I do not see evidence of honeycombing. Trace pleural fluid identified. Differential includes pneumonia and pulmonary edema. No bronchiectasis appreciated. Mediastinum and tavo: No mass or hematoma. No mediastinal or hilar lymphadenopathy. No esophageal abnormality. Heart: Moderate cardiomegaly. No pericardial effusion. Aorta: No aortic aneurysm. Pulmonary arteries: Normal caliber. Chest wall soft tissues: No acute abnormality. Diaphragm: Intact. Upper abdomen: No significant abnormality. Bones: No acute abnormality. IMPRESSION: Bilateral groundglass opacities with trace bilateral pleural effusions. Findings most suggestive ofpneumonia. Pulmonary edema is also in the differential. No findings to indicate interstitial lung disease. WSN: [id number] Ordering Physician: Sari Bob Dictated By: Adam Rene MD Dictated Date/Time: 04/28/22 11:27 p Reviewed By: Adam Rene MD Signed By: Adam Rene MD Signed Date/Time: 04/28/22 11:27 pm Transcribed By: MY Transcribed Date/Time: 04/28/22 11:23 pm Patient Care team information Care Team Personnel Name: Elva Briseno RN Position: [facility] RN Member Role: Primary Care Nurse Name: Christiano Hernandez RN Position: [facility] RN Member Role: Primary Care Nurse Name: Nova Soto RN Position: [facility] ED RN W/OE and Tasks Member Role: Primary Care Nurse Name: Larissa Griggs MD Position: [facility] Physician (General Medicine) Member Role: PCP Address: Address: [address] [facility] [place] [address]- [place] Name: Zara Gongora Position: [facility] Outreach Member Role: Lifetime Consulting Physician Name: Cora Johns RN Position: [facility] RN Member Role: Primary Care Nurse Name: China Gomez Position: [facility] RN Member Role: Primary Care Nurse Name: Arpit Davis RN Position: [facility] ED RN W/OE and Tasks Member Role: Primary Care Nurse Name: Gala Schwartz RN Position: [facility] RN Member Role: Primary Care Nurse Name: Marc Sidhu DO Position: [facility] Renal MD Member Role: Lifetime Consulting Physician Address: Address: [address] [place] [address] [address] [facility] [place] [address]- Name: Lonnie Rosario RN Position: [facility] RN Member Role: Primary Care Nurse Name: Jason Anand RN Position: [facility] RN Member Role: Primary Care Nurse Name: Sarina Del Rio RN Position: [facility] Onco RN Member Role: Primary Care Nurse Name: Emmie Vera Position: [facility] RN Member Role: Primary Care Nurse Name: Rishi GRIMES Attending Position: [facility] ED Medicine MD Name: Rossy Fong MD Position: [facility] Resident Member Role: ED Resident Address: Address: [address] [place] [address] [place] [address]- [place] Name: Valerie Sauceda RN Position: [facility] ED RN W/OE and Tasks Member Role: Patient Care Provider Name: Jenny Koehler Position: [facility] ED OA Charge Member Role: ED Associate Name: Kelsey Brewer Position: [facility] ED TA [facility] Member Role: Patient Care Provider Care Team Related Persons Name: TRINIDAD CRUMP Name: ELICIA BRONSON Address: home [address] [place] [address]
--- OUTSIDE RECORDS SUMMARY | 2024-01-13 12:04 | XMS_ITS | Continuity of Care Document ---
Author Organization [facility] Address [address] [place] [address]- Care Team Providers Care Cytopathologist Name Role Phone Eve Warren MD, Larissa Medina Primary Care Physic sophia Encounter [facility] Date(s): 01/31/20 - 03/01/20 [facility] [address] [place] [phone]- Allergies, Adverse Reactions, Alerts Substance Reaction Severity [...] Refills, Maintenance, 02/12/20 11:35:00 EST, Tablet, [id number], 186, cm, 10/19/19 15:51:00 EDT, Height, [...] 60 tablet, Refills 11, Tot. Refills 11, Maintenance,01/31/20 10:05:00 EST, Route to Pharmacy Electronically, [facility]acy #[id number], 186, cm, 10/19/19 15:51:00 EDT, Height, 97, kg, 06/16/18 9:43:00 EDT, Dry... Start Date: 01/31/20 Status: Ordered Ferrous Sulfate ER See Instructions, takes 65 mg (2 tabs) daily, Refills 0, Maintenance, 01/01/18 20:20:23 EST, Instructions Replace Required Details Start Date: 01/01/18 Status: Ordered gabapentin 300 mg oral capsule 1,200 mg, 4, capsule, By Mouth, 2 times a day, # 240 capsule, Refills 4, Tot. Refills 4, Maintenance, 02/07/20 14:17:00 EST, [id number] Partial fill upon patient request [...] 01/15/20 14:41:00 EST, Route to Pharmacy Electronically, [facility]/pharmacy #[id number], 186, cm, 10/19/19 15:51:00 EDT, Height, 97, kg, 06/16/18 9:43:00 EDT, Dry Weight Start Date: 01/15/20 Stop Date: 01/09/21 Status: Ordered loperamide 2 mg oral tablet, chewable 1 tablet = 2 mg, Chew, 2 times a day, PRN for loose stool, # 20 tablet, 0 Refills, Maintenance, 08/16/19 18:31:00 EDT, Chew Tablet, [facility]/pharmacy #[id number], 1 tablet Chew 2 times [...] 1 Refills, Maintenance, 07/17/19 11:37:00 EDT, Tablet, [facility]/pharmacy #[id number], 186, cm, 03/02/19 8:12... Start [...] 0 Refills, Maintenance, 08/16/19 18:31:00 EDT, Tablet, [facility]/pharmacy #[id number], 186, cm, 03/02/19 8:12:00 EST, [...]
--- OUTSIDE RECORDS SUMMARY | 2024-01-13 12:04 | XMS_ITS | Continuity of Care Document ---
Author Organization [facility] Address [address] [place] [address]- Care Team Providers Care Certified Adaptive Physical Educator Name Role Phone Eve Warren MD, Larissa Medina Primary Care Physic sophia Encounter [facility] Date(s): 05/20/23 - 09/17/23 [facility] [address] [place], [place] [id number]- Attending Physician: Araseli CABEZAS, Isidoro Perry Referring Physician: Larissa Griggs MD Allergies, Adverse [...] tablet, 3 Refills, Maintenance, 06/30/23 10:54:00 EDT, [id number], 186, cm, 06/21/23 15:46:00 EDT, Height, 102, kg, 06/21/23 15:46:00 EDT, Dry Weight Start Date: 06/30/23 Status: Ordered carvedilol 12.5 mg oral tablet 1, tablet, By Mouth, 2 times a day, # 180 tablet, Refills 3, Maintenance, 02/10/23 15:08:00 EST, Route to Pharmacy Electronically, [id number], 178, cm, 02/03/23 11:28:00 EST, Height, 99.3, [...] 09/05/23 15:11:00 EDT, Route to Pharmacy Electronically, [id number], 185, cm, 08/09/23 6:22:00 EDT, Height, 97.8, kg, 08/08/23 14:44:00 EDT, Dry Weight Start Date: 09/05/23 Status: Ordered dorzolamide-timolol 2.23%-0.68% ophthalmic solution 1 drops, Eye, Right, 2 times a day Start Date: 11/19/21 Status: Ordered duloxetine 30 mg oral enteric coated capsule 1 capsule = 30 mg, By Mouth, Daily, start taking from 11/28/21, # 30 capsule, 0 Refills, Maintenance, 11/28/21 9:00:00 EDT, [facility], Partial fill upon patient request if the prescription is for a schedule II opioid drug., 187, cm, 10/0... Start Date: 11/28/21 Status: Ordered Eliquis 2.5 mg oral tablet 1 tablet = 2.5 mg, By Mouth, 2 times a day, # 60 tablet, 0 Refills, Maintenance, 08/09/23 8:46:00 EDT, Tablet, [facility], Partial fill upon patient request if the prescription is for aschedule II opioid drug., 185, cm, 08/09/23 6:22:00... Start Date: 08/09/23 Stop Date: 09/08/23 Status: Ordered furosemide 40 mg oral tablet See Instructions, 1 TABLET BY MOUTH EVERY TUESDAY, TUESDAY AND TUESDAY, # 39 tablet, Refills 1, Maintenance, 01/24/23 7:47:00 EST, Instructions Replace Required Details, Route to Pharmacy Electronically, [facility] [id number], 178, cm, 10/15/22 8:07:00 EDT,... Start Date: 01/24/23 Status: Ordered gabapentin 300 mg oral capsule 900 mg, 3, capsule, By Mouth, 2 times a day, # 180 capsule, Refills 5, Tot. Refills 5, Maintenance,10/15/22 8:33:00 EDT, Route to Pharmacy Electronically, [facility]/pharmacy #[id number], 178, cm, 10/15/22 8:07:00 EDT, [...] Refills, Maintenance, 05/29/21 14:41:00 EDT, Tablet, [facility]/pharmacy #[id number], 186, cm, 05/29/21 14:1... Start [...] tablet, 0 Refills, Maintenance, 08/23/23 15:15:00 EDT, [facility]/pharmacy #[id number], 185, cm, 08/09/23 6:22:00 EDT, [...] 11/24/21 11:13:00 EDT, Route to Pharmacy Electronically, [facility], Partial fill upon patient request [...] Personnel Name: Christiano Hernandez RN Position: [facility] RN Member Role: Primary Care Nurse Name: Nova Soto RN Position: [facility] ED RN W/OE and Tasks Member Role: Primary Care Nurse Name: Larissa Griggs MD Position: [facility] Physician - Endocrinology Member Role: PCP Address: Address: [address] [place] [address] [facility] [place], [place] [address] Name: Zara Gongora Position: [facility] Outreach Member Role: Lifetime Consulting Physician Name: China Gomez Position: [facility] RN Member Role: Primary Care Nurse Name: Arpit Davis RN Position: [facility] ED RN W/OE and Tasks Member Role: Primary Care Nurse Name: Gala Schwartz RN Position: [facility] RN Member Role: Primary Care Nurse Name: Marc Sidhu DO Position: [facility] Renal MD Member Role: Lifetime Consulting Physician Address: Address: [address] [place] [address] [address] [facility] [place] [address]- Name: Meseret Rosario RN Position: [facility] RN Member Role: Primary Care Nurse Name: Lonnie Rosario RN Position: [facility] RN Member Role: Primary Care Nurse Name: Kirby Zavala RN Position: [facility] RN Member Role: Primary Care Nurse Name: Jason Anand RN Position: [facility] RN Member Role: Primary Care Nurse Name: Jannette Boyer RN Position: [facility] AMB Nurse Member Role: Primary Care Nurse Name: Toby Shafer RN Position: [facility] RN Member Role: Primary Care Nurse Name: Lesa Oneill RN Position: [facility] RN Member Role: Primary Care Nurse Name: Sarina Del Rio RN Position: [facility] Onco RN Member Role: Primary Care Nurse Care Team Related Persons Name: TRINIDAD CRUMP Name: ELICIA BRONSON Address: home [address] [address]
--- OUTSIDE RECORDS SUMMARY | 2024-01-13 12:04 | XMS_ITS | Continuity of Care Document ---
Author Organization [facility] Address [address] [place] [address]- Care Team Providers Care Machine Set Up Name Role Phone Eve Warren MD, Larissa Medina Primary Care Physic sophia Encounter [facility] Date(s): 07/09/21 - 08/08/21 [facility] [address] [place] [phone]- [place] Allergies, Adverse Reactions, Alerts No Known [...] 3 Refills, Maintenance, 02/04/21 14:50:00 EST, Tablet, [facility]/pharmacy #[id number], 186, cm, 11/27/20 13:22:00 EDT, Height Start Date: 02/04/21 Stop Date: 01/30/22 Status: Ordered Coreg 6.25 mg oral tablet 6.25 mg, 1, tablet, By Mouth, 2 times a day, # 180 tablet, Refills 3, Tot. Refills 3, Maintenance, 07/09/21 11:14:00 EDT, Route to Pharmacy Electronically, [facility]/pharmacy #[id number], Partial fill upon patient [...] 06/23/21 12:42:00 EDT, Route to Pharmacy Electronically, [facility]/pharmacy #[id number], 186, cm, 06/18/21 14:24:00 [...] 1 Refills, Maintenance, 05/29/21 14:41:00 EDT, Tablet, [facility]/pharmacy #1620, 186, cm, 05/29/21 14:1... Start Date: 05/29/21 [...]
--- OUTSIDE RECORDS SUMMARY | 2024-01-13 12:04 | XMS_ITS | Continuity of Care Document ---
Author Organization [facility] Address [address] [place] [phone]- Care Team Providers Care Engineering Executive Name Role Phone Eve Warren MD, Larissa Medina Primary Care Physic sophia Encounter [facility] Date(s): 05/18/23 - 06/17/23 [facility] [address] [place] [phone]- [place] Allergies, Adverse Reactions, Alerts No Known [...] tablet, 3 Refills, Maintenance, 11/22/22 7:50:00 EDT, [facility] 10363, 178, cm, 10/15/22 8:07:00 EDT, Height, 99.3, kg, 08/22/22 14:01:00 EDT, Dry Weight Start Date: 11/22/22 Status: Ordered carvedilol 12.5 mg oral tablet 1, tablet, By Mouth, 2 times a day, # 180 tablet, Refills 3, Maintenance, 02/10/23 15:08:00 EST, Route to Pharmacy Electronically, [facility], 178, cm, 02/03/23 11:28:00 EST, Height, 99.3, [...] 11/10/22 14:37:00 EDT, Route to Pharmacy Electronically, [facility] 575[facility], 178, cm, 10/15/22 8:07:00 EDT, Height, 99.3, kg, 08/22/22 14:01:00 EDT, Dry Weight Start Date: 11/10/22 Status: Ordered dorzolamide-timolol 2.23%-0.68% ophthalmic solution 1 drops, Eye, Right, 2 times a day Start Date: 11/19/21 Status: Ordered duloxetine 30 mg oral enteric coated capsule 1 capsule = 30 mg, By Mouth, Daily, start taking from 11/28/21, # 30 capsule, 0 Refills, Maintenance, 11/28/21 9:00:00 EDT, [facility], Partial fill upon patient request if the prescription is for a schedule II opioid drug., 187, cm, 0... Start Date: 11/28/21 Status: Ordered furosemide 40 mg oral tablet See Instructions, 1 TABLET BY MOUTH EVERY TUESDAY, TUESDAY AND TUESDAY, # 39 tablet, Refills 1, Maintenance, 01/24/23 7:47:00 EST, Instructions Replace Required Details, Route to Pharmacy Electronically, [facility] 92194, 178, cm, 10/15/22 8:07:00 EDT,... Start Date: 01/24/23 Status: Ordered gabapentin 300 mg oral capsule 900 mg, 3, capsule, By Mouth, 2 times a day, # 180 capsule, Refills 5, Tot. Refills 5, Maintenance,10/15/22 8:33:00 EDT, Route to Pharmacy Electronically, [facility]/pharmacy #[id number], 178, cm, 10/15/22 8:07:00 EDT, Height, 99.3, kg, 08/22/22 14:01:00 EDT, Dry... Start Date: 10/15/22 Stop Date: 04/13/23 Status: Ordered gabapentin 300 mg oral capsule 900 mg, 3, capsule, By Mouth, 2 times a day, # 180 capsule, Refills 5, Tot. Refills 5, Maintenance,05/19/23 12:29:00 EDT, Route to Pharmacy Electronically, [facility] #[id number], 186, cm, 04/20/23 21:24:00 EST, Height, 95.5, kg, 04/20/23 21:24:... Start Date: 05/19/23 Stop Date: 11/15/23 Status: Ordered latanoprost 0.005% ophthalmic solution 1 drops, Eye, Right, Daily at bedtime, 0 Refills, Maintenance, 01/01/18 18:46:39 EST Start Date: 01/01/18 Status: Ordered lidocaine 5% topical film 2 patch, Topically, Daily, remove patches after 12 hours, # 30 patch, 0 Refills, Maintenance, 04/20/23 19:59:00 EST, Film, [facility]/pharmacy #0750, Partial fill upon patient [...] Refills, Maintenance, 05/29/21 14:41:00 EDT, Tablet, [facility]/pharmacy #1070, 186, willie, 05/29/21 14:1... Start Date: 05/29/21 Status: Ordered oxyCODONE 5 mg oral capsule 1 capsule = 5 mg, By Mouth, Every 6 hours, PRN for pain, # 28 capsule, 0 Refills, Maintenance, 04/20/23 19:53:00 EST, Capsule, [facility]/pharmacy #0750, Partial fill upon patient request if the prescription is for a schedule II opioid drug., 186willie, ... Start Date: 04/20/23 Status: Ordered pantoprazole [...] Refills, Maintenance, 05/18/23 15:11:00 EDT, ER Tablet, [facility]/pharmacy #[id number], Partial fill upon patient request if the prescription is for a schedule II opioid drug., 186, c... Start Date: 05/18/23 Status: Ordered Potassium Chloride (Eqv-K-Tab) 20 mEq oral tablet, extended release See Instructions, 2 TABLET BY MOUTH EVERY TUESDAY, TUESDAY AND TUESDAY, # 26 tablet, 0 Refills, Maintenance, 05/30/23 13:43:00 EDT, [facility], 186, willie, 05/25/23 14:56:00 EDT, Height, 95.5, kg, 04/20/23 [...] 11/24/21 11:13:00 EDT, Route to Pharmacy Electronically, [facility], Partial fill upon patient [...] Name: Nova Soto RN Position: [facility] ED RN W/OE and Tasks Member Role: Primary Care Nurse Name: Larissa Griggs MD Position: [facility] Physician - Endocrinology Member Role: PCP Address: Address: [address] [place] [address] [place] [address]- [place] Name: Zara Gongora Position: [facility] Outreach Member Role: Lifetime Consulting Physician Name: China Gomez Position: [facility] RN Member Role: Primary Care Nurse Name: Arpit Davis RN Position: [facility] ED RN W/OE and Tasks Member Role: Primary Care Nurse Name: Gala Schwartz RN Position: [facility] RN Member Role: Primary Care Nurse Name: Marc Sidhu DO Position: [facility] Renal MD Member Role: Lifetime Consulting Physician Address: Address: [address] [place] [address] [address] [facility] [place] [address]- Name: Lonnie Rosario RN Position: [facility] RN Member Role: Primary Care Nurse Name: Jason Anand RN Position: [facility] RN Member Role: Primary Care Nurse Name: Jannette Boyer RN Position: [facility] AMB Nurse Member Role: Primary Care Nurse Name: Toby Shafer RN Position: [facility] RN Member Role: Primary Care Nurse Name: Lesa Oneill RN Position: [facility] RN Member Role: Primary Care Nurse Name: Sarina Del Rio RN Position: [facility] Onco RN Member Role: Primary Care Nurse Care Team Related Persons Name: ALISIA TRINIDAD Name: ELICIA BRONSON Address: home [address] [place] [address]
--- OUTSIDE RECORDS SUMMARY | 2024-01-13 12:04 | XMS_ITS | Continuity of Care Document ---
Author Organization [facility] Address [address] [facility], [address] Floor, [address] [place] [phone]- Care Team Providers Care Awning Finisher Name Role Phone Eve Warren MD, Larissa Medina Primary Care Physic sophia Encounter [facility] Date(s): 11/10/22 - 12/10/22 [facility] [address], [address], [address] [place] [phone]- Allergies, Adverse Reactions, Alerts No Known Allergies [...] tablet, 3 Refills, Maintenance, 11/22/22 7:50:00 EDT, [facility] 04048, 178, cm, 10/15/22 8:07:00 EDT, Height, 99.3, [...] 12/17/21 15:20:00 EDT, Route to Pharmacy Electronically, [facility]acy #[id number], Partial fill upon patient request if the prescription is for a schedule II... Start Date: 12/17/21 Stop Date: 12/12/22 Status: Ordered donepezil 5 mg oral tablet 1, tablet, By Mouth, Daily at bedtime, # 90 tablet, Refills 1, Maintenance, 11/10/22 14:37:00 EDT, Route to Pharmacy Electronically, [facility] 77139, 178, cm, 10/15/22 8:07:00 EDT, Height, 99.3, kg, 08/22/22 14:01:00 EDT, Dry Weight Start Date: 11/10/22 Status: Ordered dorzolamide-timolol 2.23%-0.68% ophthalmic solution 1 drops, Eye, Right, 2 times a day Start Date: 11/19/21 Status: Ordered duloxetine 30 mg oral enteric coated capsule 1 capsule = 30 mg, By Mouth, Daily, start taking from 11/28/21, # 30 capsule, 0 Refills, Maintenance, 11/28/21 9:00:00 EDT, [facility], Partial fill upon patient request if the prescription is for a schedule II opioid drug., 187, cm, 10/0... Start Date: 11/28/21 Status: Ordered furosemide 40 mg oral tablet 40 mg, 1, tablet, By Mouth, Every Tuesday, Tuesday and Tuesday, # 13 tablet, Refills 3, Tot. Refills 3, Maintenance, 09/20/22 16:42:00 EDT, Route to Pharmacy Electronically, [facility]/pharmacy #[id number], Partial fill upon patient request if the prescription is... Start Date: 09/20/22 Status: Ordered gabapentin 300 mg oral capsule 900 mg, 3, capsule, By Mouth, 2 times a day, # 180 capsule, Refills 5, Tot. Refills 5, Maintenance,10/15/22 8:33:00 EDT, Route to Pharmacy Electronically, [facility]/pharmacy #[id number], 178, cm, 10/15/22 8:07:00 EDT, [...] 0 Refills, Soft Stop, 08/22/22 16:30:00 EDT, [facility], Partial fill upon patient request if the prescription is for a schedule II opioid drug... Start Date: 08/22/22 Status: Ordered nitroglycerin 0.4 mg sublingual tablet 1 tablet = 0.4 mg, Sublingual, Every 5 minutes, PRN for chest pain, not to exceed 3 doses/15 min--if pain persists, seek medical attention, # 100 tablet, 1 Refills, Maintenance, 05/29/21 14:41:00 EDT, Tablet, [facility]/pharmacy #[id number], 186, cm, 05/29/21 14:1... Start [...] 11/24/21 11:13:00 EDT, Route to Pharmacy Electronically, [facility], Partial fill upon patient [...] Team Personnel Name: Christiano Hernandez RN Position: [facility] RN Member Role: Primary Care Nurse Name: Nova Soto RN Position: [facility] ED RN W/OE and Tasks Member Role: Primary Care Nurse Name: Larissa Griggs MD Position: [facility] Physician - Endocrinology Member Role: PCP Address: Address: [address] [place] [address] [facility] [place], [place] [address] Name: Zara Gongora Position: [facility] Outreach Member Role: Lifetime Consulting Physician Name: China Gomez Position: [facility] RN Member Role: Primary Care Nurse Name: Arpit Davis RN Position: [facility] ED RN W/OE and Tasks Member Role: Primary Care Nurse Name: Gala Schwartz RN Position: [facility] RN Member Role: Primary Care Nurse Name: Marc Sidhu DO Position: [facility] Renal MD Member Role: Lifetime Consulting Physician Address: Address: [address] [place], [place] [address] [place] [address]- Name: Lonnie Rosario RN Position: [facility] RN Member Role: Primary Care Nurse Name: Jason Anand RN Position: S RN Member Role: Primary Care Nurse Name: Jannette Boyer RN Position: [facility] SN RN Member Role: Primary Care Nurse Name: Sarina Del Rio RN Position: [facility] Onco RN Member Role: Primary Care Nurse Care Team Related Persons Name: TRINIDAD CRUMP Name: ELICIA BRONSON Address: home [address] [place] [address]
--- OUTSIDE RECORDS SUMMARY | 2024-01-13 12:04 | XMS_ITS | Continuity of Care Document ---
Author Organization [facility] Address [address] [facility], [address] Floor, [address] [place] [id number]- Care Team Providers Care Testing And Regulating Technician Name Role Phone Eve Warren MD, Larissa Medina Primary Care Physic sophia [place] [facility] [place]): [place] - [place]/22 [facility] [address], [address], [address] [place] [id number] [[email or web address]] Attending Physician: Cristiano Prado Admitting Physician: AdmCristiano buenrostro Referring Physician: Admtr, Cristiano Allergies, Adverse Reactions, Alerts No Known Allergies [...] 16:31:00 EDT, [facility] STORE [id number], 186, cm, 10/23/21 14:57:00 EDT, Height, 88.1, [...] capsule, 0 Refills, Maintenance, 11/28/21 9:00:00 EDT, [facility], Partial fill upon patient request if the prescription is for a schedule II opioid drug., 187, cm, 10/0... Start Date: 11/28/21 Status: Ordered furosemide 40 mg oral tablet 40 mg, 1, tablet, By Mouth, Daily, PRN, # 30 tablet, Refills 3, Tot. Refills 3, Maintenance, leg swelling, 01/22/22 9:53:00 EST, Route to Pharmacy Electronically, [facility] [...] capsule, 3 Refills, Maintenance, 02/05/22 15:19:00 EST, [facility]/pharmacy #[id number], 187, cm, 01/26/22 11:24:00 EST, Height, [...] 11/24/21 11:13:00 EDT, Route to Pharmacy Electronically, [facility], Partial fill upon patient [...] Name: Elva Briseno RN Position: [facility] RN Member Role: Primary Care Nurse Name: Christiano Hernandez RN Position: S RN Member Role: Primary Care Nurse Name: Nova Soto RN Position: [facility] ED RN W/OE and Tasks Member Role: Primary Care Nurse Name: Larissa Griggs MD Position: [facility] Physician (General Medicine) Member Role: PCP Address: Address: [address] [place] [address] [place] [address]- Name: Zara Gongora Position: [facility] Outreach Member Role: Lifetime Consulting Physician Name: China Gomez Position: [facility] RN Member Role: Primary Care Nurse Name: Arpit Davis RN Position: [facility] ED RN W/OE and Tasks Member Role: Primary Care Nurse Name: Gala Schwartz RN Position: [facility] RN Member Role: Primary Care Nurse Name: Marc Sidhu DO Position: [facility] Renal MD Member Role: Lifetime Consulting Physician Address: Address: [address] [place], [place] [address] [place] [address]- Name: Jannette Boyer RN Position: [facility] RN Member Role: Primary Care Nurse Name: Sarina Del Rio RN Position: [facility] Onco RN Member Role: Primary Care Nurse Care Team Related Persons Name: TRINIDAD CRUMP Name: ELICIA BRONSON Address: [place] [address]
--- OUTSIDE RECORDS SUMMARY | 2024-01-13 12:04 | XMS_ITS | Continuity of Care Document ---
Author Organization [facility] ter Address [address] [place] [id number]- Care Team Providers Care Assurance Auditor Name Role Phone Eve Warren MD, Larissa Medina Primary Care Physic sophia Encounter [facility] Date(s): 08/08/23 - 08/09/[address] [address]- Discharge Disposition: A-Transfer VNA/Home Health Attending Physician: Dante Thompson MD Admitting Physician: [...] tablet, 3 Refills, Maintenance, 06/30/23 10:54:00 EDT, [id number], 186, cm, 06/21/23 15:46:00 EDT, Height, 102, kg, 06/21/23 15:46:00 EDT, Dry Weight Start Date: 06/30/23 Status: Ordered carvedilol 12.5 mg oral tablet 1, tablet, By Mouth, 2 times a day, # 180 tablet, Refills 3, Maintenance, 02/10/23 15:08:00 EST, Route to Pharmacy Electronically, [id number], 178, cm, 02/03/23 11:28:00 EST, Height, 99.3, kg, 08/22/22 14:01:00 EDT, Dry Weight Start Date: 02/10/23 Status: Ordered carvedilol 12.5 mg oral tablet 12.5 mg, Tablet, By Mouth, 08/09/23 9:00:00 EDT Start Date: 08/09/23 Stop Date: 08/09/23 Status: Completed celecoxib 200 mg oral capsule = 200 [...] 11/10/22 14:37:00 EDT, Route to Pharmacy Electronically, [id number], 178, cm, 10/15/22 8:07:00 EDT, Height, 99.3, kg, 08/22/22 14:01:00 EDT, Dry Weight Start Date: 11/10/22 Status: Ordered dorzolamide-timolol 2.23%-0.68% ophthalmic solution 1 drops, Eye, Right, 2 times a day Start Date: 11/19/21 Status: Ordered duloxetine 30 mg oral enteric coated capsule 1 capsule = 30 mg, By Mouth, Daily, start taking from 11/28/21, # 30 capsule, 0 Refills, Maintenance, 11/28/21 9:00:00 EDT, [facility], Partial fill upon patient request if the prescription is for a schedule II opioid drug., 187, cm, ... Start Date: 11/28/21 Status: Ordered Eliquis 2.5 mg oral tablet 1 tablet = 2.5 mg, By Mouth, 2 times a day, # 60 tablet, 0 Refills, Maintenance, 08/09/23 8:46:00 EDT, Tablet, [facility], Partial fill upon patient request if the prescription is for aschedule II opioid drug., 185, cm, 08/09/23 6:22:00... Start Date: 08/09/23 Stop Date: 09/08/23 Status: Ordered furosemide 40 mg oral tablet See Instructions, 1 TABLET BY MOUTH EVERY TUESDAY, TUESDAY AND TUESDAY, # 39 tablet, Refills 1, Maintenance, 01/24/23 7:47:00 EST, Instructions Replace Required Details, Route to Pharmacy Electronically, [id number], 178, cm, 10/15/22 8:07:00 EDT,... Start Date: 01/24/23 Status: Ordered gabapentin 300 mg oral capsule 900 mg, 3, capsule, By Mouth, 2 times a day, # 180 capsule, Refills 5, Tot. Refills 5, Maintenance,10/15/22 8:33:00 EDT, Route to Pharmacy Electronically, [facility] #[id number], 178, cm, 10/15/22 8:07:00 EDT, Height, 99.3, kg, 08/22/22 14:01:00 EDT, Dry... Start Date: 10/15/22 Stop Date: 04/13/23 Status: Ordered gabapentin 300 mg oral capsule 900 mg, Capsule, By Mouth, 08/09/23 9:00:00 EDT Start Date: 08/09/23 Stop Date: 08/09/23 Status: Completed latanoprost 0.005% ophthalmic solution 1 [...] Refills, Maintenance, 05/29/21 14:41:00 EDT, Tablet, [facility] #[id number], 186, cm, 05/29/21 14:1... Start [...] Date: 08/09/23 Stop Date: 08/18/23 Status: Ordered OxyCODONE IR Tablet 10 mg, Tablet, By Mouth, Every 4 hours, PRN for Pain , Severe, Routine, 08/08/23 12:29:00 EDT Start Date: 08/08/23 Stop Date: 08/09/23 Status: Discontinued pantoprazole 40 mg oral delayed release tablet 1 tablet = 40 mg, By Mouth, Daily, # 30 tablet, 0 Refills, Maintenance, 08/08/23 8:48:00 EDT, EC Tablet Start Date: 08/08/23 Status: Ordered Potassium Chloride (Eqv-K-Tab) 20 mEq oral tablet, extended release See Instructions, 2 TABLET BY MOUTH EVERY TUESDAY, TUESDAY AND TUESDAY, # 26 tablet, 0 Refills, Maintenance, 07/21/23 11:34:00 EDT, [id number], 186, cm, 06/21/23 15:46:00 EDT, Height, 102, [...] 11/24/21 11:13:00 EDT, Route to Pharmacy Electronically, [facility], Partial fill upon patient request if the prescription is for a schedule... Start Date: 11/24/21 Stop Date: 12/24/21 Status: Ordered traMADol 50 mg oral tablet See Instructions, PRN Pain , Mild, take 1-2 tablets every 6 hours as needed for mild pain. not to exceed 400 mg/day, # 56 tablet, 0 Refills, Acute 08/17/23 8:00:00 EDT, 08/09/23 8:49:00 EDT, Tablet, [facility], Partial fill upon patien... [...] Exam Date Time Procedure Performing Provider Status 08/08/23 1:01 PM Pelvis 1 or 2 Views Rycox southi , Jacquel ine; Auth (Verified) Notes: (Pelvis 1 or 2 Views) Reason For Exam: Postop Prosthesis RESULT: Pelvis 1 or 2 Views Pelvis 1 or 2 Views, 1 view Reason: Postop Prosthesis; Clinical Question(s): Status of Hip Prosthesis; Special Instructions: RIGHT Hip - To be done in PACU COMPARISON: Multiple prior studies, most recently March 16, 2023. FINDINGS: Early postoperative frontal views following right hip total arthroplasty with expected subcutaneousemphysema but no evidence of hardware complication. Left hip arthroplasty hardware is noted. Vasectomy clips. Mild to moderate degenerative changes of the lumbar spine. IMPRESSION: Expected early postoperative appearance following right hip total arthroplasty without evidence of hardware complication. WSN: [id number] Ordering Physician: Isidoro Cantu Dictated By: Richie Saucedo MD Dictated Date/Time: 08/08/23 5:22 pm Reviewed By: Richie Saucedo MD Signed By: Richie Saucedo MD Signed Date/Time: 08/08/23 5:22 pm Transcribed By: MY Transcribed Date/Time: 08/08/23 5:21 pm * Exam Date Time Procedure Performing Provider Status 08/08/23 11:32 AM C-Arm < 1 Hour Diann Soto; Juan Joés ( Verified) Notes: (C-Arm < 1 Hour) Reason For Exam: RT HIP OA Right Anterior Hip RESULT: C-Arm < 1 Hour Pelvis 1 or 2 Views, C-Arm < 1 Hour INDICATION: Reason: OA RT HIP COMPARISONS: None TECHNIQUE: Fluoroscopy support was provided. There was no radiologist in attendance. FLUOROSCOPY TIME: 08.4 seconds EXPOSURE: .5076 Gycm2 (Dose Area Product) TECHNOLOGIST TIME: 33 minutes FINDINGS: Multiple fluoroscopic images of the lower pelvis are obtained by the portable image intensifier in the operating room are available for review and interpretation. A cementless total right hip arthroplasty has been performed using computer- assisted musculoskeletal navigational techniques and software. The acetabular and femoral components of it could position. Please refer to the operative report for more details. Old cementless left hip arthroplasty. IMPRESSION: See above. WSN: [id number] Ordering Physician: Dante Thompson Dictated By: Gerson Servin MD, V Dictated Date/Time: 08/08/23 12:23 p Reviewed By: Gerson Servin MD, V Signed By: Gerson Servin MD, V Signed Date/Time: 08/08/23 12:23 pm Transcribed By: MY Transcribed Date/Time: 08/08/23 12:20 pm * Exam Date Time Procedure Performing Provider Status 08/08/23 11:32 AM Pelvis 1 or 2 Views Marc Nieves ; Juan José (Verified) Notes: (Pelvis 1 or 2 Views) Reason For Exam: OA RT HIP RESULT: Pelvis 1 or 2 Views Pelvis 1 or 2 Views, C-Arm < 1 Hour INDICATION: Reason: OA RT HIP COMPARISONS: None TECHNIQUE: Fluoroscopy support was provided. There was no radiologist in attendance. FLUOROSCOPY TIME: 08.4 seconds EXPOSURE: .5076 Gycm2 (Dose Area Product) TECHNOLOGIST TIME: 33 minutes FINDINGS: Multiple fluoroscopic images of the lower pelvis are obtained by the portable image intensifier in the operating room are available for review and interpretation. A cementless total right hip arthroplasty has been performed using computer- assisted musculoskeletal navigational techniques and software. The acetabular and femoral components of it could position. Please refer to the operative report for more details. Old cementless left hip arthroplasty. IMPRESSION: See above. WSN: [id number] Ordering Physician: Dante Thompson Dictated By: Gerson Servin MD, V Dictated Date/Time: 08/08/23 12:23 p Reviewed By: Gerson Servin MD, V Signed By: Gerson Servin MD, V Signed Date/Time: 08/08/23 12:23 pm Transcribed By: MY Transcribed Date/Time: 08/08/23 12:20 pm Vital Signs Most recent to oldest [Reference Range]: 1 2 3 Height 185 cm (08/09/23 6:22 AM) 185 cm (08/09/23 2:40 AM) 185 cm (08/08/23 11:20 PM) Weight 97.8 kg (08/08/23 2:44 PM) Oxygen Saturation [94-100 %] 97 % (08/09/23 6:22 AM) 98 % (08/09/23 2:40 AM) 98 % (08/09/23 1:27 AM) Pulse Rate [55-90 bpm] 8 bpm *L* (08/09/23 7:06 AM) 78 bpm (08/09/23 6:22 AM) 75 bpm (08/09/23 2:40 AM) Body Mass Index [18.5-24.99 kg/m2] 28.58 kg/m2 *H* (08/08/23 2:44 PM) Blood Pressure [90-138/55-84 mm Hg] 147/64mm Hg *H* (08/09/23 7:06 AM) 147/67mm Hg *H* (08/09/23 6:22 AM) 156/62mm Hg *H* (08/09/23 2:40 AM) Respiratory Rate [16-30 br/min] 18 br/min (08/09/23 10:46 AM) 18 br/min (08/09/23 8:07 AM) 18 br/min (08/09/23 8:06 AM) Temperature [96.8-100.4 DegF] 97.5 DegF (08/09/23 6:22 AM) 97.7 DegF (08/09/23 2:40 AM) 98.0 DegF (08/08/23 11:20 PM) Liters per Minute 1 L/min (08/08/23 1:30 PM) 1 L/min (08/08/23 1:00 PM) Mode of Delivery (Oxygen) Room air (08/09/23 6:22 AM) CPAP (08/09/23 2:40 AM) Room air (08/08/23 11:20 PM) Blood pressure sites Arm, left (08/09/23 6:22 AM) Arm, left (08/09/23 2:40 AM) Arm, left (08/08/23 11:20 PM) Temperature Route Oral (08/09/23 6:22 AM) Axillary (08/09/23 2:40 AM) Oral (08/08/23 11:20 PM) Dry Weight 97.8 kg (08/08/23 2:44 PM) 97.8 kg (08/08/23 9:45 AM) Dry Weight Obtained Via Standing scale (08/08/23 9:45 AM) Social History Social History Type Response Smoking Status Never smoker; Tobacc o user in household: No entered on: 09/03/14 Sex History and physical note * Event Display: History and Physical Hospital Authored Date: * Anna Berry NP: MODIFY Event Display: History and Physical Hospital Authored Date: [id number] SURGICAL HISTORY AND PHYSICAL DATE: 08/08/2023 PRIMARY DIAGNOSIS: Osteoarthritis of the right hip. REASON FOR ADMISSION: The patient is being admitted for right total anterior hip arthroplasty by Dr. Thompson on 08/08/2023. HISTORY OF PRESENT ILLNESS: Mr. Munguia is a very pleasant 72-year-old male well known to the practice with complaints of right sided hip pain. He had his previous left hip replaced in 02/2023. He was discharged to rehab the next day. He has been very happy with the outcome of his left hip. He did recently suffer a fall in June and reported increased pain to his left hip, which was evaluated by Dr. Thompson and found not to have a fracture. He states that his left hip is feeling better and now reports increasing pain to his right hip. He also has bilateral bruising to his knees from his fall. The patient has failed anti- inflammatory pain medications, Tylenol, and home exercise program and he is now ready to pursue a right total anterior hip arthroplasty for definite relief of pain from his osteoarthritis and is scheduled for 08/08/2023. PAST MEDICAL HISTORY: 1. 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 2. Prostate cancer. He is status post prostatectomy and now reports urinary incontinence. 3. History of previous spontaneous left sided pneumothorax. 4. Past ruptured cervical disk with surgical treatment and residual chronic back pain. 5. History of adenomatous polyps and diverticulosis. 6. Obstructive sleep apnea, where the patient wears a CPAP at night. He will bring his settings with him to the hospital. 7. Early stages of dementia. 8. Hard of hearing without hearing aids. 9. Gout. 10. OCD. 11. Chronic kidney disease stage III, where the patient takes Celebrex at baseline. 12. Slight cognitive impairment. 13. Obesity with a BMI of 31.4. 14. Duodenal ulcer. The patient was following up with GI. He is currently on iron replacement and Protonix. PAST SURGICAL HISTORY: 1. He had a left hip replaced by Dr. Thompson in 02/2023. He was discharged to rehab on postoperative day #1 as his , who is recovering from a tib-fib surgery. 2. Radical prostatectomy. 3. History of disk surgery. 4. Cardiac catheterization in 2018. 5. Right thoracotomy. 6. Right hand pin. 7. Skin cancer removal. 8. Right rotator cuff repair in 2018. MEDICATIONS: Current list of medications includes, 1. Lipitor 80 mg once daily. 2. Carvedilol 12.5 mg twice a day. 3. Allopurinol 300 mg in the morning. 4. Gabapentin 300 mg, he takes 3 capsules twice a day. 5. Aricept 5 mg at bedtime. 6. Cymbalta 30 mg in the morning. 7. Tadalafil 5 mg, he uses 1 tablet every day for bladder urgency. 8. Lasix. He uses 40 mg Tuesday, Tuesday, and Tuesday. 9. Potassium chloride 20 mEq one tab Tuesday, Tuesday, and Tuesday. 10. Latanoprost eyedrops 0.005% one drop to right eye every day. 11. Dorzolamide HCL/timolol maleate one drop to right eye twice a day. 12. Glucosamine and chondroitin and a multivitamin, which he has discontinued in preparation for surgery. 13. Vitamin C. 14. Vitamin D. 15. Vitamin B. 16. Celebrex 200 mg daily. 17. Protonix 40 mg daily. 18. Testosterone cypionate 0.3 mg injection once weekly. 19. Tylenol as needed for pain. 20. Aspirin 81 mg. 21. Iron 65 mg daily. 22. Robaxin 750 mg q.i.d. as needed. 23. Zyrtec 10 mg as needed. ALLERGIES: No known drug allergies. 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 He lives with his . He has 2 children. One of which had a hip replacement by Dr. Thompson. He admits to two alcoholic beveragesa day. Denies any tobacco or illicit drug use. PHYSICIANS: The patient's primary care physician is Dr. Larissa Dillon. He also follows with Dr. Marx from Cardiology. REVIEW OF SYSTEMS: The patient reports baseline neuropathy. He has a little bit of short-term memory issues. He has baseline urinary incontinence and chronic back pain. Denies any current issues withhis skin. PHYSICAL EXAMINATION: VITAL SIGNS: Height is 71 inches tall, weight is 210 pounds. Temperature is 96.7, blood pressure 150/85, and pulse is 66. GENERAL: Alert and oriented. Normal insight, affect, and grooming. SKIN: Intact without rash or lesions. Nails without clubbing or cyanosis. Left hip with a well-healed incision. NECK: Supple. No lymphadenopathy. CHEST: Lungs are clear to auscultation bilaterally and breathing is unlabored. CARDIOVASCULAR: Heart has a regular rate and rhythm with normal S1, S2. No murmurs, rubs or gallopsappreciated. ABDOMEN: Obese, soft, nontender. EXTREMITIES: Lower extremities, the patient has a negative straight leg raise test bilaterally. Bilateral knees currently with full range of motion with minimal pain due to his fall and bruising. Right hip without erythema, abrasion or edema noted. Skin temperature is normal and swelling is not present. Lower extremity alignment is neutral. The patient is not experiencing hip tenderness to palpation, no pain with log roll. No pain in the lower back or sacroiliac. The patient is not experiencingradiating pain, no pop or click. Range of motion, extension is 0 degrees, flexion is 100-110 degrees, internal rotation and flexion is 5-15 degrees, external rotation and flexion is 30-35 degrees, abd uction is 30-40 degrees and adduction is 10-15 degrees. Calves are supple and nontender. Ankle motion is satisfactory. Pedal pulses palpable bilaterally and skin about the feet is intact. PREOPERATIVE DIAGNOSTIC DATA: Orthopedic x-rays demonstrate end-stage osteoarthritis of the right hip. There is [id number] articulation, subchondral sclerosis, and osteophyte formation. EKG Sinus rhythm with sinus arrhythmia with a right atrial enlargement with an inferior infarct ageundetermined. LABORATORY DATA: CBCs demonstrate an RBCs 2.94 with an H&H 12.6 and 37.4 chemistry panel withinnormal limits glucose is 108 hemoglobin A1c is 5.98 PTT is 23 ASSESSMENT AND PLAN: The patient has advanced osteoarthritis of the right hip and is now scheduled for right total anterior hip arthroplasty by Dr. Thompson in 08/08/2023. The patient On the med consultation for preoperative clearance who considered the patient's risk for major adverse cardiac events as low. He has a low pulmonary risk as well. He is at a high risk for delirium and standard precautions should be placed. The patient will receive IV TXA and be placed on Eliquis 2.5 mg twice a dayfor 30 days due to his recent diagnosis of duodenal ulcer. He denies any current dental infections.We will order a CPAP for him while he is inpatient and monitor him on pulse ox overnight. The patient is already taking Celebrex, and therefore, he should continue and we will monitor his kidney function. We will monitor him on telemetry throughout his length of stay. Discharge plans will be to home with services at this time. He will stay overnight. He has been counseled regarding the risks and benefits of the proposed procedure. His questions have been answered and he acknowledges understanding. The patient wishes to proceed with surgery. CONTACTS: His , Elicia, with a phone number of [phone] and a cell phone number of [phone]. Prescriptions given at time of the visit include tramadol, Colace, and Tylenol. He will require a prescription for Eliquis and pain medicine upon discharge from the hospital. Dictated by: Anna Berry N.P. Signing Clinician: Dante Thompson M.D. Dictated: 08/02/2023 11:48:35 Transcribed: 08:03:19 AM Transcribed by: JOSE/ZOHAIB DocID: [id number] PRELIMINARY REPORT UNLESS MANUALLY/ELECTRONICALLY SIGNED Cardiology * Event Display: Cardiac Rhythm Strips Authored Date: Hospital Progress note * Meseret Rosario RN: PERFORM, SIGN, VERIFY Event Display: Progress Note Hospital Authored Date: [id number] Patient: KRISTEN MUNGUIA Age: 72 years Sex: Male : 1950 Associated Diagnoses: None Author: Meseret Rosario RN Findings Problem Related to Alteration in Musculoskeletal : Alteration in Musculoskeletal Func/new 08/09/2023 1:00 EDT Alteration in Musculoskeletal Related to Mobility, Total joint replacement, Other: R anterior hip 08/07 Dr. Thompson Goals & Outcomes, Musculoskeletal Affected extremity will maintain color/motion/sensation, Pt able to perform ADL's to best of ability, Pt demonstrates precautions/exercise/ transfers per protocol, Pt will ambulate safely with assistive device, Pt will be free from complications of immobility, Pt will demonstrate ability to participate in ADL's, Pt will report acceptable level of comfort/painrelief Interventions, Musculoskeletal Monitor patients ambulation status, monitor Color/Motion/Sensation, Encourage deep breathing & coughing exercises, Teach & Encourage use of Incentive spirometer, Teach pt/caregiver on use of pain scale, Teach Pt/caregiver on safety precautions Goals/Interventions, Musculoskeletal Yes Musculoskeletal, Problem Start 08/08/2023 18:28 Reviewed Plan with, Musculoskeletal Patient Patient Progression, Musculoskeletal Pt progressing according to plan . Evaluation P-as per musculoskeletal plan of care I-as per updated plan of care E-Patient is alert and oriented x4, POD 1 right hip. Incision is surgical aquacel that is clean, dry and intact this morning. Anterior approach Dr. Thompson. He is ambulating with a walker and cleared PT/OT this morning for home with [facility]. He has +1 edema to the ankles bilaterally. His pain has been well controlled with oxycodone 10mg po q 4 hours and tylenol. He is voiding in the BR, his LBM is reported to be 6/12 and at this time he emptied out with a lot of loose stool. I offered miralax and MOM this am, he was adamant to not take. He does have +BS all 4 quadrants. Vitals and labs are stable. Discharge summary reviewed with patient. IV discontinued without complication. Escorted to [facility] by staff member. . * Kirby Zavala RN: PERFORM, SIGN, VERIFY Event Display: Progress Note Hospital Authored Date: Patient: KRISTEN MUNGUIA Age: 72 years Sex: Male : 1950 Associated Diagnoses: None Author: Kirby Zavala RN Findings Problem Related to Alteration in Comfort : Alteration in Comfort/new 08/09/2023 1:00 EDT Alteration in Comfort Related to Surgery Goals & Outcomes: Comfort Pt will report acceptable level of comfort & pain control, Pt will state importance of adhering to pain strategy regime, Pt will demonstrate necessary skills to manage pain, Non-verbal indicators will indicate comfort/pain control Interventions Implemented: Comfort Assess pain using appropriate pain scale/tools, Assess aggravating factors & prevent them accordingly, Assess alleviating factors & promote them accordingly Goals/Interventions, Comfort Yes Comfort, Problem Start 08/09/2023 1:29 Reviewed plan with, Comfort Patient Patient Progression, Comfort Plan Initiation Comfort, Problem Ongoing Yes . Alteration in Musculoskeletal : Alteration in Musculoskeletal Func/new 08/09/2023 1:00 EDT Alteration in Musculoskeletal Related to Mobility, Total joint replacement, Other: R anterior hip 08/07 Dr. Thompson Goals & Outcomes, Musculoskeletal Affected extremity will maintain color/motion/sensation, Pt able to perform ADL's to best of ability, Pt demonstrates precautions/exercise/ transfers per protocol, Pt will ambulate safely with assistive device, Pt will be free from complications of immobility, Pt will demonstrate ability to participate in ADL's, Pt will report acceptable level of comfort/painrelief Interventions, Musculoskeletal Monitor patients ambulation status, monitor Color/Motion/Sensation, Encourage deep breathing & coughing exercises, Teach & Encourage use of Incentive spirometer, Teach pt/caregiver on use of pain scale, Teach Pt/caregiver on safety precautions BH Goals/Interventions, Musculoskeletal Yes Musculoskeletal, Problem Start 08/08/2023 18:28 Reviewed Plan with, Musculoskeletal Patient Patient Progression, Musculoskeletal Pt progressing according to plan . Evaluation P: Alteration in comfort/ Alteration in musculoskeletal I: as listed above interventions E: Post-op day 1 right anterior THR. Alert and oriented x3. No sob, encouraged use of incentive spirometer, use CPAP at night. On laboratory monitor, SR, HR 80's- 90's, with trace of pedal edema, +pp. Nonausea or vomiting, last BM 08/02/13, given scheduled bowel meds. Right anterior aquacel dressing CDI, with bruising, +cms, with strong D/P flexion. Ambulating with the use of walker with 1-2 assist, gait steady. Medicated with scheduled acetaminophen and prn oxycodone for 8/10 pain with relief. Voiding good amount of clear yellow urine. Wearing compression boots and will start on eliquis POD1 forDVT prophylaxis. Right elbow and forearm with abrasions from recent fall, right hand with edema. Resting quietly at this time. Call light within reach and know how to use it.. * Juan MURRELL, Benito: PERFORM, SIGN, VERIFY Event Display: Progress Note Hospital Authored Date: [id number] Patient: KRISTEN MUNGUIA Age: 72 years Sex: Male : 1950 Associated Diagnoses: None Author: Juan MURRELL, Benito Findings Problem Related to Alteration in Musculoskeletal : Alteration in Musculoskeletal Func/new 08/08/2023 18:00 EDT Alteration in Musculoskeletal Related to Total joint replacement, Other: R anterior hip 08/07 Dr. Thompson Goals & Outcomes, Musculoskeletal Affected extremity will maintain color/motion/sensation, Pt able to perform ADL's to best of ability, Pt demonstrates precautions/exercise/ transfers per protocol, Pt will ambulate safely with assistive device, Pt will be free from complications of immobility, Pt will demonstrate ability to participate in ADL's, Pt will report acceptable level of comfort/painrelief Interventions, Musculoskeletal Monitor patients ambulation status, monitor Color/Motion/Sensation, Assist with repositioning, Encourage deep breathing & coughing exercises, Notify MD immediately if tissue perfusion deteriorates, Obtain assistive devices as needed, Teach & Encourage use of Incentive spirometer, Teach Pt/caregiver on ADL's & adaptive equipment, Teach Pt/caregiver on exercises, Teach pt/caregiver on use of pain scale, Teach Pt/caregiver complications of immobility, Teach Pt/caregiver techniques to increase mobility, Teach Pt/caregiver on safety precautions BH Goals/Interventions, Musculoskeletal Yes Musculoskeletal, Problem Start 08/08/2023 18:28 Reviewed Plan with, Musculoskeletal Patient Patient Progression, Musculoskeletal Pt progressing according to plan . Evaluation P: Alteration in musculoskeletal system I: See above for updated careplan E: Patient up from [facility] at 1500 s/p right anterior hip replacement by Dr. Thompson. Patient with +PF/DF, +CMS, +pedal pulses bilaterally to lower extremities. Aquacell to right hip clean, dry and intact. Patient able to ambulate times 2 asisst with use of rollgin walker from stretcher to chair in ro om, slightly unsteady gait. Patient with 7-8/10 pain to right hip, medicated with 5mg Oxycodone, scheduled Tylenol and scheduled Gabapentin with fair effect. Patient voiding large amounts in urinal without difficulty. Patient reporting multiplr recent falls, scrapes throughout RUE and back from falls. Patient without SOB/CP, VSS. +bowel sounds, abdomen soft/nontender, LBm 08/02, patient reporting long bout of diarrhea in days leading up to 08/02 and has not had bowel movement since. Patient with afternoon PT session, to be reevaluated for discharge home in AM by PT/OT. Plan of care ongoing. . Discharge Information Case Management Discharge Plan : Case Management Discharge Plan Data 08/08/2023 11:35 EDT Discharge Level of Care at Discharge Homehealth/VNA Service Categories #1 Occupational Therapy, Physical Therapy Service Comments #1 [facility] will contact you to set up a visit time after discharge. Please call [phone] if you don't hear from them. Rehabilitation Discharge : Rehab Discharge Index 08/08/2023 15:49 EDT Comments on treatment indicated OT to address ADL's, transfers, safetty, AE edu Full chart review completed Yes Hospital course PROCEDURE: Pt s/p right anterior hip arthroplasty by Dr. Thompson on 08/08/2023. Transfer tub/shower OT Plan Supervision 08/08/2023 15:11 EDT Comments on treatment indicated 72 F with early dementia right total anterior hip arthroplasty by Dr. Thompson on 08/08/2023. WBAT. PT for strength, endurance, ambulation, balance, stairs. Rec home c serv Distance pt will ambulate 50 ft Full chart review completed Yes Hospital course Hospital course Other findings see comment Plan of care PT Gait training, Transfer training, Therapeutic exercise, Functional Activities, Balance training Note * Meseret Rosario RN: PERFORM Event Display: Discharge/Transfer Note Hospital Authored Date: [id number] Nursing Discharge Note Entered On: 08/09/2023 12:28 EDT Performed On: 08/09/2023 12:27 EDT by Meseret Rosario RN Nursing Discharge Note 2 Discharge Time : 08/09/2023 12:27 EDT Discharge Level of Care at Discharge : Homehealth/VNA Patient Left Unit Via : Wheelchair Patient Accompanied Off Unit with : Other: PCT DC Instructions Provided & Signed by Pt : Yes Patient Understands D/C Instructions : Yes Patient Instructions Discharge Signed : Yes Did Pt have Specialty Bed or Wound Vac : No Meseret Rosario RN - 08/09/2023 12:27 EDT * Anna Berry NP: PERFORM, SIGN, VERIFY Event Display: Discharge/Transfer Note Hospital Authored Date: [id number] Patient: KRISTEN MUNGUIA Age: 72 years Sex: Male : 1950 Associated Diagnoses: None Author: Jamal SOUZA, Anna Discharge Summary Admission Date: 08/08/2023 Discharge Date: 08/09/2023 Admitting Diagnosis: Right hip osteoarthritis Discharge Diagnosis: Right hip osteoarthritis Final Diagnosis : Right hip osteoarthritis Procedure: Right total hip arthroplasty Surgeon: Dr. Dante Thompson Past Medical History: 1. 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 2. Prostate cancer. He is status post prostatectomy and now reports urinary incontinence. 3. History of previous spontaneous left sided pneumothorax. 4. Past ruptured cervical disk with surgical treatment and residual chronic back pain. 5. History of adenomatous polyps and diverticulosis. 6. Obstructive sleep apnea, where the patient wears a CPAP at night. He will bring his settings with him to the hospital. 7. Early stages of dementia. 8. Hard of hearing without hearing aids. 9. Gout. 10. OCD. 11. Chronic kidney disease stage III, where the patient takes Celebrex at baseline. 12. Slight cognitive impairment. 13. Obesity with a BMI of 31.4. 14. Duodenal ulcer. The patient was following up with GI. He is currently on iron replacement and Protonix. PAST SURGICAL HISTORY: 1. He had a left hip replaced by Dr. Thompson in 02/2023. He was discharged to rehab on postoperative day #1 as his , who is recovering from a tib-fib surgery. 2. Radical prostatectomy. 3. History of disk surgery. 4. Cardiac catheterization in 2018. 5. Right thoracotomy. 6. Right hand pin. 7. Skin cancer removal. 8. Right rotator cuff repair in 2018. Orthopedics: The patient is status post right total hip arthroplasty. It is anticipated that they will be discharged home today pending PT, OT clearance. The patient is doing well from a surgical standpoint. Their incision is healing well. Neurovascular status is intact. Calves are supple and nontender. Making good progress with Physical Therapy and Occupational therapy. Supervision with ambulation walking 30 feet , ambulating with a walker WBAT. Pain is well controlled on their current regimen, Acetaminophen 650 mg every 6 hours, Tramadol as needed for mild pain, and Oxycodone as needed for moderate to severe pain. a Patient is tolerating this well. They will be sent home with a prescription for this medication. Prescription: Tramadol 50 mg tablet. Take 1-2 tablets every 6 hours as needed for pain x 7 days. # 56 tablet. Oxycodone IR 5mg tablet. Take 1-2 tablets every 4 hours as needed for pain x 7 days. # 84 tablet. Hospital course: Relatively uneventful medically. The patient denies any nausea or vomiting and has been able to tolerate their diet. Pain is controlled now. Patient is voiding spontaneously. + bowel sounds. Bowels medications given with anticipation of a BM. No other issues. No calf tenderness. Current Medication List: Acetaminophen (acetaminophen 500 mg oral tablet) 2 tab(s) 1,000 Milligram By Mouth Every 6 hours Allopurinol (allopurinol 300 mg oral tablet) 300 Milligram 1 tablet By Mouth Daily Amlodipine (amLODIPine 5 mg oral tablet) 5 Milligram By Mouth Daily apixaban (Eliquis 2.5 mg oral tablet) 1 tab(s) 2.5 Milligram By Mouth 2 times a day for 30 Days Ascorbic Acid (Vitamin C 500 mg oral tablet) 1 tab(s) 500 Milligram By Mouth Daily Atorvastatin (atorvastatin 80 mg oral tablet) 1 tab(s) By Mouth Daily Carvedilol (carvedilol 12.5 mg oral tablet) 1 tablet By Mouth 2 times a day Celecoxib (celecoxib 200 mg oral capsule) 200 Milligram By Mouth Daily Paitent was taking at home, monitor kidney function Cholecalciferol (Vitamin D3 1000 intl units oral capsule) 1 capsule 1,000 International Unit By Mouth Daily Cyanocobalamin (Vitamin B12) 1 tab(s) By Mouth Daily Donepezil (donepezil 5 mg oral tablet) 1 tablet By Mouth Daily at bedtime Dorzolamide-Timolol Ophthalmic (dorzolamide-timolol 2.23%-0.68% ophthalmic solution) 1 Drops Eye, Right 2 times a day Duloxetine (duloxetine 30 mg oral enteric coated capsule) 1 capsule 30 Milligram By Mouth Daily start taking from 11/28/21 Furosemide (furosemide 40 mg oral tablet) See Instructions 1 TABLET BY MOUTH EVERY TUESDAY, TUESDAY AND TUESDAY Gabapentin (gabapentin 300 mg oral capsule) 900 Milligram 3 capsule By Mouth 2 times a day for 30 Days Latanoprost Ophthalmic (latanoprost 0.005% ophthalmic solution) 1 Drops Eye, Right Daily at bedtime Miscellaneous Rx (rocío stockings 15 to 20) See Instructions rocío stockings 15-20 mmHg Nitroglycerin (nitroglycerin 0.4 mg sublingual tablet) 1 tab(s) 0.4 Milligram Sublingual Every 5 minutes as needed for chest pain not to exceed 3 doses/15 min--if pain persists, seek medical attention Oxycodone (oxyCODONE 5 mg oral tablet) See Instructions as needed Take 1-2 tablets every 4 hours asneeded for moderate to severe pain. Pain , Moderate Pantoprazole (pantoprazole 40 mg oral delayed release tablet) 1 tab(s) 40 Milligram By Mouth Daily Potassium Chloride (Potassium Chloride (Eqv-K-Tab) 20 mEq oral tablet, extended release) See Instructions 2 TABLET BY MOUTH EVERY TUESDAY, TUESDAY AND TUESDAY tadalafil (tadalafil 5 mg oral tablet) TAKE ONE TABLET BY MOUTH EVERY DAY FOR BLADDED URGE Testosterone (Testosterone Cypionate 200 mg/mL intramuscular solution) 0.3 Intramuscular Every Tuesday Thiamine (thiamine 100 mg oral tablet) 100 Milligram 1 tablet By Mouth 2 times a day for 30 Days Tramadol (traMADol 50 mg oral tablet) See Instructions as needed Pain , Mild take 1-2 tablets every6 hours as needed for mild pain. not to exceed 400 mg/day Allergies: Allergies (Active and Proposed Allergies Only) NKA (Severity: Unknown severity, Onset: Unknown) Current Labs: Basic Metabolic Panel: Hematology: Sodium: 141 mmol/L (08/09/23) Hgb: 10.9 Gm/dL (08/09/23) Potassium (POC): 3.8 mmol/L (08/09/23) Hemoglobin A1C (Monitoring): ------ Phosphorus: ------ WBC: 14.5 k/mm3 (08/09/23) Magnesium: ------ Platelets: 142 k/mm3 (08/09/23) BUN (POC) POC Cartridge: 14 mg/dL (08/09/23) INR Level: ------ Creatinine-Blood: 0.86 mg/dL (08/09/23) Creatinine Clearance: ------ Additional - Last 24 Hours Abs. NRBC: 0.0 k/mm3 (08/09/23) Anion Gap: 12 (08/09/23) Bicarbonate Level: 27 mmol/L (08/09/23) BUN: BUN (08/09/23) Chloride: 102 mmol/L (08/09/23) Creatinine, Blood: Creatinine, Blood (08/09/23) Est Creatinine Clearance: 84.76 (08/09/23) Estimated GFR Creatinine: 91 ML/MIN/1.73 M2 (08/09/23) Hct: 33.4 % (08/09/23) MCH: 31.8 pg (08/09/23) MCHC: 32.6 g/dL (08/09/23) MCV: 97.4 femtoliters (08/09/23) MPV: 11.4 femtoliters (08/09/23) Nucleated RBC (Automated): 0.0 #/100 WBC'S (08/09/23) RBC: 3.43 m/mm3 (08/09/23) RDW-SD: 53.5 femtoliters (08/09/23) DVT prophylaxis Eliquis 2.5 mg p o bid x 30 days Disposition: Anticipates being discharged today to home. Follow up at [facility] in two weeks , patient is aware of this. The patient has an Aquacel dressing in place. They may shower with it and the dressing can be discontinued on POD 14. Oxycodone is meant to be used sparingly and for breakthrough pain. It is encouraged to use tramadolin between doses of oxycodone in order to try and reduce the amount and frequency of oxycodone thatyou need to take. Ice and elevation are keller to controlling pain after a knee replacement surgery. If you are having enough pain that you need to take oxycodone please make sure you are elevating yourknee above your heart and applying ice liberally. Discharge Information Admission Date: 08/08/2023 Principal Discharge Diagnosis Discharge Plan Discharge Disposition Discharge: home with VNA. Home Health Face to Face I certify that this patient is under my care and that I or an allowed non- physician practitioner working with me, had a [id number] encounter with the patient on this date: 08/09/2023. The encounter with the patient was in whole, or in part, for the following medical condition, whichis the primary reason for home health care: Osteoarthritis of right hip. Physical Therapy: Functional mobility training, Home exercise program to strengthen, increase ROM, Falls prevention training. Occupational Therapy: ADL Management, Fall prevention training. Homebound due to: Inability to leave home without assistance/supervision, Inability to ambulate without assistance. Physician Signature: Jay CABEZAS, Dante Burgess * Abraham MURRELL, Meseret: PERFORM Event Display: Patient Education/Instruction Authored Date: [id number] Inpatient Adult Discharge Instructions. [address] [address] Name: KRISTEN MUNGUIA : 1950?? Visit: 08/08/2023 06:12?? Current Date: 08/09/2023 10:54 ?? Account: [id number]?? Inpatient Adult Discharge Instructions We would like [...] and their families. Surveys are administered by [employer] ?? If further treatment with your primary care physician or another doctor is recommended, it is important for you to keep the appointment. Call your primary care physician or return to the Emergency Department immediately if your condition worsens, fails to improve, or new symptoms develop. If you need to find a doctor, you can call [facility] [employer] Link for a referral at [phone] or toll free at [phone]) or log in to [email or web address].. ?? [facility], in keeping with [facility] guidance, no longer requires face masks for staff, patientsor visitors in most situations. Similiar to time spent indoors at other locations, there is the chance that you were exposed to repiratory viruses during your time with us (such as flu or COVID-19). If you develop symptoms concerning for a viral respiratory infection, please seek testing (and treatment if indicated) from your medical provider or home test kit. ?? You can view and manage your care through the patient portal or by using a health care crissy of your choosing. [employer] is a website that allows you to securely view your medical information including your hospital discharge summary, office visit summaries, medications and follow-up visits. You can also request appointments, renew medications, and request access to your medical information using a health care crissy of your choosing, or just ask a question. You can enroll at [email or web address] or register during your next office visit. You have been discharged from [facility], Patient Care Unit: SW7??. If you have any questions regarding these instructions, including results of studies pending, afteryou leave, please call us and we will be happy to assist you 13/09. [facility] Your Care Team Attending Physician Jay CABEZAS, Dante Ceron?? Consulting Providers Jay CABEZAS, Dante Ceron?? Discharging Providers Jamal SOUZA, Anna Your Diagnosis Osteoarthritis of right hip Tests Performed Below is a partial list of the tests performed during your hospitalization. You may have had other tests and procedures not included in this list. Please discuss all test results with your provider. BUN CBC Creatinine Electrolytes XR C-Arm < 1 Hour XR Pelvis 1 or 2 Views BUN?? CBC?? Creatinine?? Electrolytes?? Pathology Tissue Request ()?? Primary Care Provider Eve Warren MD, Larissa Medina? Advance Directive Health Care Proxy on File Yes - Health Care Proxy Discharge Vitals Temperature: 97.5 DegF Height: 185 cm Pulse Rate:??8 bpm??Low Weight: 97.8 kg Respiratory Rate: 18 br/min Body Mass Index:??28.58 kg/m2??High Systolic Blood Pressure:??147 mm Hg??High Body surface area: 2.24 Diastolic Blood Pressure: 64 mm Hg ?? Oxygen Saturation: 97 % ?? Studies Pending All studies ordered during this hospital stay have been completed unless listed below. Please discuss all pending results with your provider listed above in these instructions. ?? BUN?? CBC?? Creatinine?? Electrolytes?? Pathology Tissue Request ()?? What to do next Instructions From Your Doctor ?? Orders?? Unit Discharge Criteria Met, ??08/09/23 8:52:00 EDT?? Prescriptions??, ??08/09/23 8:52:00 EDT?? Scheduled Follow-Up Appointments 2023 9:20 AM EDT ?? With: Araseli CABEZAS, Isidoro Perry Where: [facility] [address] [place] [address] [address] [place] [address]- Status: Pending You Need to Schedule the Following Appointments Follow Up with??[facility] When:??Within 1 to 2 weeks Discharge Medications KRISTEN MUNGUIA :1950 Visit Date:08/08/2023 Medications: Please continue your medications until treatment is completed or stopped by your provider. Medications not listed below should be discontinued. Discuss any questions related to medications with your provider. What How Much When Why Instructions Next Dose New apixaban (Eliquis 2.5 mg oral tablet) 1 tab(s) Oral Twice a day Duration: 30 Days Pickup at [facility] 3 Next due tonight 8pm New Oxycodone (oxyCODONE 5 mg oral tablet) See instructions Take 1-2 tablets every 4 hours as needed for moderate to severe pain., As needed for Pain , Moderate ?? Pickup at [facility] 3 Took 10mg at 11am ?? Due 3pm today New Tramadol (traMADol 50 mg oral tablet) See instructions take 1-2 tablets every 6 hours as needed for mild pain. not to exceed 400 mg/ day, As needed for Pain , Mild ?? Pickup at [facility] 3 You did not take today. For mild pain ?? *Do not take at the very same time as oxycodone, space out doses if you take this medicine as can make you too sleepy. ? Changed Gabapentin (gabapentin 300 mg oral capsule) 3 capsule Oral Twice a day Duration: 30 Days Due today 8pm Unchanged Acetaminophen (acetaminophen 500 mg oral tablet) 2 tab(s) Oral Every 6 hours Due today at 5pm Unchanged Allopurinol (allopurinol 300 mg oral tablet) 1 tab(s) Oral Daily Due 08/09 9am Unchanged Amlodipine (amLODIPine 5 mg oral tablet) 5 Milligram Oral Daily Due 08/09 9am Unchanged Ascorbic Acid (Vitamin C 500 mg oral tablet) 1 tab(s) Oral Daily Due 08/09 9am Unchanged Atorvastatin (atorvastatin 80 mg oral tablet) 1 tab(s) Oral Daily Due 08/09 9am Unchanged Carvedilol (carvedilol 12.5 mg oral tablet) 1 tab(s) Oral Twice a day Due today at 8pm Unchanged Celecoxib (celecoxib 200 mg oral capsule) 200 Milligram Oral Daily Paitent was taking at home, monitor kidney function ?? Due 08/09 9am Unchanged Cholecalciferol (Vitamin D3 1000 intl units oral capsule) 1 capsule Oral Daily Due 08/09 9am Unchanged Cyanocobalamin (Vitamin B12) 1 tab(s) Oral Daily Due 08/09 9am Unchanged Donepezil (donepezil 5 mg oral tablet) 1 tab(s) Oral Daily at Bedtime Due tonight at 9pm Unchanged Dorzolamide-Timolol Ophthalmic (dorzolamide-timolol 2.23%-0.68% ophthalmic solution) 1 Drops Right eye Twice a day Unchanged Duloxetine (duloxetine 30 mg oral enteric coated capsule) 1 capsule Oral Daily start taking from ?? Unchanged Furosemide (furosemide 40 mg oral tablet) See instructions 1 TABLET BY MOUTH EVERY TUESDAY, TUESDAY AND TUESDAY ?? Take on Tuesday and Tuesday this week Unchanged Latanoprost Ophthalmic (latanoprost 0.005% ophthalmic solution) 1 Drops Right eye Daily at Bedtime Unchanged Miscellaneous Rx (rocío stockings 15 to 20) See instructions rocío stockings 15-20 mmHg ?? Unchanged Nitroglycerin (nitroglycerin 0.4 mg sublingual tablet) 1 tab(s) Sublingual Every 5 minutes as needed for for chest pain Coronary artery disease not to exceed 3 doses/ 15 min--if pain persists, seek medical attention ?? Unchanged Pantoprazole (pantoprazole 40 mg oral delayed release tablet) 1 tab(s) Oral Daily Due 08/09 9pm Unchanged Potassium Chloride (Potassium Chloride (Eqv-K-Tab) 20 mEq oral tablet, extended release) See instructions 2 TABLET BY MOUTH EVERY TUESDAY, TUESDAY AND TUESDAY ?? As directed Unchanged tadalafil (tadalafil 5 mg oral tablet) TAKE ONE TABLET BY MOUTH EVERY DAY FOR BLADDED URGE ?? Unchanged Testosterone (Testosterone Cypionate 200 mg/ mL intramuscular solution) 0.3 Intramuscular Every Tuesday Unchanged Thiamine (thiamine 100 mg oral tablet) 1 tab(s) Oral Twice a day Duration: 30 Days Due 08/09 8pm Pharmacy Information [facility] 3: [address] [place] [place], [place] [id number] [phone] ?? What How Much When Comments Stop Taking Aspirin (aspirin 81 mg oral capsule) 1 capsule Oral Daily do not exceed 48 capsules in 24 hours ?? Prescription Given During Visit Oxycodone (oxyCODONE 5 mg oral tablet) - , # 84 tablet, 0 Refills, Take 1-2 tablets every 4 hours as needed for moderate to severe pain., [facility] 3, [address] [place] [phone]?? Tramadol (traMADol 50 mg oral tablet) - , # 56 tablet, 0 Refills, take 1-2 tablets every 6 hours asneeded for mild pain. not to exceed 400 mg/day, [facility] 3, [address] [place] [phone]?? apixaban (Eliquis 2.5 mg oral tablet) - 1 tablet = 2.5 mg, By Mouth, 2 times a day, # 60 tablet, 0 Refills, [facility] 3, [address] [place] [phone]?? Laboratory Results Below is a partial list of the most recent Laboratory test results done prior to this discharge. You may have had other tests and procedures not included in this list. Please discuss all test resultswith your provider. Est Creatinine Clearance - 84.76 mL/min (08/09/2023) BUN (08/09/2023) ???BUN - 14 mg/dL CBC (08/09/2023) ???WBC - 14.5 k/mm3???RBC - 3.43 m/mm3???Hgb - 10.9 Gm/dL???Hct - 33.4 %???MCV - 97.4 femtoliters???MCH - 31.8 pg???MCHC - 32.6 g/dL???Platelet Count - 142 k/mm3???RDW-SD - 53.5 femtoliters???MPV - 11.4 femtoliters???Nucleated RBC (Automated) - 0.0 #/100 WBC'S???Abs. NRBC - 0.0 k/mm3 Creatinine (08/09/2023) ???Creatinine-Blood - 0.86 mg/dL???Estimated GFR Creatinine - 91 ML/MIN/1.73 M2 Electrolytes (08/09/2023) ???Sodium - 141 mmol/L???Potassium - 3.8 mmol/L???Chloride - 102 mmol/L???Bicarbonate Level - 27 mmol/L???Anion Gap - 12 Allergies (NKA means No Known Allergies) NKA Problems Active Problems??(6) Chronic kidney disease, stage 3?? Cognitive impairment?? Coronary artery disease?? COVID-19?? Hypertension?? Hypokalemia?? Education Materials Below is the list of Educational Leaflet Providered with your Discharge Instructions. Valuables and Belongings I fully understand and agree that [facility] accepts no responsibility for all my personal [...] Review of Valuable and Belonging List: With patient Disposition of Belongings: Other: PACU closet Date for Pt to Sign Valuables/Belongings: 08/08/23 14:46:00 ?? Other Discharge Information ? Case Management Discharge Plan?? Discharge Plan?? Discharge Agency Information?? Discharge Level of Care at Discharge: Homehealth/VNA Service Categories #1: Occupational Therapy, Physical Therapy ?? Service Comments #1: [facility] will contact you to set up a visit time after discharge. Please call [phone] if you don't hear from them. ?? Pulmonary Rehab Status?? Pulmonary Rehab Discharge Status?? CPAP/BiPAP Mask Type: Full CPAP/BiPAP Mask Size: Large Respiratory Rate: 18 br/min ? Common Emergency [...] are strongly encouraged to quit. Please call [facility] [employer] Link at [phone] or [phone] ([phone]) or log in to [email or web address] for referrals to smoking cessation programs. ?? 391 Suicide & Crisis Lifeline is available 13/09 if you or someone you know needs to find a reason to keep living. By calling 479 you'll be connected to a skilled, trained counselor at a crisis center in your area. INPATIENT DISCHARGE INSTRUCTIONS SIGNATURE PAGE AIYANAKRISTEN PENG Location:[facility] Registration Date and Time:08/08/2023 06:12 EDT Primary Care Physician: Eve Warren MD, Larissa Medina, Attending Physician: Jay CABEZAS, Dante Ceron, I KRISTEN MUNGUIA, have received the above patient education materials/instructions and have verbalized understanding. If ambulance or transport services are being used I further acknowledge being given a choice of service. ?? If you need to contact me, please call me at this number: . Patient/Research Epidemiologist Name: Patient/Research Epidemiologist Signature: Relationship to Patient: Witness Name/Signature: Date: Patient Care team information Care Team Personnel Name: Christiano Hernandez RN Position: [facility] RN Member Role: Primary Care Nurse Name: Nova Soto RN Position: [facility] ED RN W/OE and Tasks Member Role: Primary Care Nurse Name: Larissa Griggs MD Position: [facility] Physician - Endocrinology Member Role: PCP Address: Address: [address] [place] [address] [facility] [place] [address]- Name: Zara Gongora Position: S Outreach Member Role: [employer] Consult[employer] Physician Name: China Gomez Position: [facility] RN Member Role: Primary Care Nurse Name: Arpit Davis RN Position: [facility] ED RN W/OE and Tasks Member Role: Primary Care Nurse Name: Gala Schwartz RN Position: [facility] RN Member Role: Primary Care Nurse Name: Marc Sidhu DO Position: [facility] Renal MD Member Role: Lifetime Consulting Physician Address: Address: [address] [place], [place] [address] [place] [address]- Name: Meseret Rosario RN Position: [facility] RN Member Role: Primary Care Nurse Name: Lonnie Rosario RN Position: [facility] RN Member Role: Primary Care Nurse Name: Kirby Zavala RN Position: [facility] RN Member Role: Primary Care Nurse Name: Jason Anand RN Position: [facility] RN Member Role: Primary Care Nurse Name: Jannette Boyer RN Position: [facility] AMB Nurse Member Role: Primary Care Nurse Name: Toby Shafer RN Position: [facility] RN Member Role: Primary Care Nurse Name: Lesa Oneill RN Position: [facility] RN Member Role: Primary Care Nurse Name: Sarina Del Rio RN Position: [facility] Onco RN Member Role: Primary Care Nurse Care Team Related Persons Name: TRINIDAD CRUMP Name: ELICIA MUNGUIA Address: [place] [address]
--- OUTSIDE RECORDS SUMMARY | 2024-01-13 12:04 | XMS_ITS | Continuity of Care Document ---
Author Organization [facility] Address [address] [place] [id number]- Care Team Providers Care Case Management Manager Name Role Phone Eve Warren MD, Larissa Medina Primary Care Physic sophia Encounter [facility] Date(s): 01/15/20 - 02/14/20 [facility] [address] [place] [id number]- Allergies, Adverse Reactions, Alerts Substance Reaction Severity [...] Maintenance,01/31/20 10:05:00 EST, Route to Pharmacy Electronically, [facility]/pharmacy #[id number], 186, cm, 10/19/19 15:51:00 EDT, [...] 02/07/20 14:17:00 EST, [facility] 01/15/20 14:41:00 EST, Route to Pharmacy Electronically, [facility]/pharmacy #[id number], 186, cm, 10/19/19 15:51:00 EDT, Height, 97, kg, 06/16/18 9:43:00 EDT, Dry Weight Start Date: 01/15/20 Stop Date: 01/09/21 Status: Ordered loperamide 2 mg oral tablet, chewable 1 tablet = 2 mg, Chew, 2 times a day, PRN for loose stool, # 20 tablet, 0 Refills, Maintenance, 08/16/19 18:31:00 EDT, Chew Tablet, [facility]/pharmacy #[id number], 1 tablet Chew 2 times [...] 1 Refills, Maintenance, 07/17/19 11:37:00 EDT, Tablet, [facility]/pharmacy #[id number], 186, cm, 03/02/19 8:12... Start [...] 0 Refills, Maintenance, 08/16/19 18:31:00 EDT, Tablet, [facility]/pharmacy #[id number], 186, cm, 03/02/19 8:12:00 EST, [...]
--- OUTSIDE RECORDS SUMMARY | 2024-01-13 12:04 | XMS_ITS | Continuity of Care Document ---
Author Organization [facility] Address [address] [place] [id number]- Care Team Providers Care Human Relations Professor Name Role Phone Larissa Griggs MD Primary Care Physic sophia Encounter [facility] Date(s): 09/04/21 - 02/24/22 [facility] [address] [place] [id number]- Attending Physician: Tracy Keller MD Admitting Physician: Tracy Keller MD Referring Physician: Larissa Griggs MD Allergies, [...] Refills, Maintenance, 11/03/21 16:31:00 EDT, [id number], 186, cm, 10/23/21 14:57:00 EDT, Height, 88.1, [...] EDT, Route to Pharmacy Electronically, [facility]/pharmacy #[id number], Partial fill upon patient request if [...] capsule, 0 Refills, Maintenance, 11/28/21 9:00:00 EDT, [facility], Partial fill upon patient request if the prescription is for a schedule II opioid drug., 187, cm, 10/0... Start Date: 11/28/21 Status: Ordered furosemide 40 mg oral tablet 1, tablet, By Mouth, Daily, PRN, LEG SWELLING., # 30 tablet, Refills 3, Maintenance, NEEDED, 02/16/22 7:39:00 EST, Route to Pharmacy Electronically, [id number], 187, cm, 01/26/22 11:24:00 EST, Height, 91, kg, 11/20/21 17:55:00 EDT, Dry Weight Start Date: 02/16/22 Status: Ordered gabapentin 300 mg oral capsule 600 mg, 2, capsule, By Mouth, 2 times a day, # 120 capsule, Refills 5, Tot. Refills 5, Maintenance,02/10/22 15:57:00 EST, [id number], Partial fill upon patient request if [...] Maintenance, 05/29/21 14:41:00 EDT, Tablet, [facility]/pharmacy #[id number], 186, cm, 05/29/21 14:1... Start Date: [...] capsule, 3 Refills, Maintenance, 02/05/22 15:19:00 EST, [facility]/pharmacy #[id number], 187, cm, 01/26/22 11:24:00 EST, Height, [...] 11/24/21 11:13:00 EDT, Route to Pharmacy Electronically, [facility], Partial fill upon patient request if [...] Team Personnel Name: Elva Briseno RN Position: [facility] RN Member Role: Primary Care Nurse Name: Christiano Hernandez RN Position: S RN Member Role: Primary Care Nurse Name: Nova Soto RN Position: [facility] ED RN W/OE and Tasks Member Role: Primary Care Nurse Name: Larissa Griggs MD Position: [facility] Physician (General Medicine) Member Role: PCP Address: Address: [address] [place] [address] [place] [address]- Name: Zara Gongora Position: [facility] Outreach Member Role: Lifetime Consulting Physician Name: China Gomez Position: [facility] RN Member Role: Primary Care Nurse Name: Arpit Davis RN Position: [facility] ED RN W/OE and Tasks Member Role: Primary Care Nurse Name: Gala Schwartz RN Position: S RN Member Role: Primary Care Nurse Name: Marc Sidhu DO Position: [facility] Renal MD Member Role: Lifetime Consulting Physician Address: Address: [address] [place], [place] [address] [place] [address]- Name: Jannette Boyer RN Position: S RN Member Role: Primary Care Nurse Name: Sarina Del Rio RN Position: [facility] Onco RN Member Role: Primary Care Nurse Care Team Related Persons Name: TRINIDAD CRUMP Name: ELICIA BRONSON Address: home [address] [place] [address]
--- OUTSIDE RECORDS SUMMARY | 2024-01-13 12:04 | XMS_ITS | Continuity of Care Document ---
Author Organization [facility] ter Address [address] [place] [id number]- Care Team Providers Care Ground Hand Name Role Phone Eve Warren MD, Larissa Medina Primary Care Physic sophia Encounter [facility] Date(s): 03/16/23 - 03/17/[address] [address] Discharge Disposition: A-Transfer SNF Attending Physician: Dante Thompson MD Admitting Physician: [...] opioid drug. Start Date: 02/03/23 Status: Ordered Acetaminophen Tablet 650 mg, Tablet, By Mouth, 03/17/23 15:00:00 EST Start Date: 03/17/23 Stop Date: 03/17/23 Status: Completed allopurinol 300 mg oral tablet 300 mg, [...] opioid drug. Start Date: 03/17/23 Status: Ordered amLODIPine 5 mg oral tablet 5 mg, Tablet, By Mouth, Hold for: SBP less than 130, 03/17/23 9:00:00 EST Start Date: 03/17/23 Stop Date: 03/17/23 Status: Completed Aspirin Tablet 325 mg, By Mouth, 2 times a day, Refills 0, Maintenance, 03/17/23 8:19:00 EST, Partial fill upon patient request if the prescription is for a schedule II opioid drug. Start Date: 03/17/23 Status: Ordered atorvastatin 80 mg oral tablet 1 tablet, By Mouth, Daily, # 90 tablet, 3 Refills, Maintenance, 11/22/22 7:50:00 EDT, [id number], 178, cm, 10/15/22 8:07:00 EDT, Height, 99.3, kg, 08/22/22 14:01:00 EDT, Dry Weight Start Date: 11/22/22 Status: Ordered carvedilol 12.5 mg oral tablet 1, tablet, By Mouth, 2 times a day, # 180 tablet, Refills 3, Maintenance, 02/10/23 15:08:00 EST, Route to Pharmacy Electronically, [id number], 178, cm, 02/03/23 11:28:00 EST, Height, 99.3, kg, 08/22/22 14:01:00 EDT, Dry Weight Start Date: 02/10/23 Status: Ordered carvedilol 12.5 mg oral tablet 12.5 mg, Tablet, By Mouth, 03/17/23 9:00:00 EST Start Date: 03/17/23 Stop Date: 03/17/23 Status: Completed celecoxib 200 mg oral capsule [...] 11/10/22 14:37:00 EDT, Route to Pharmacy Electronically, [id number], 178, cm, 10/15/22 8:07:00 EDT, Height, 99.3, [...] Replace Required Details, Route to Pharmacy Electronically, [facility], 178, cm, 10/15/22 8:07:00 EDT,... Start Date: 01/24/23 Status: Ordered gabapentin 300 mg oral capsule 900 mg, 3, capsule, By Mouth, 2 times a day, # 180 capsule, Refills 5, Tot. Refills 5, Maintenance,10/15/22 8:33:00 EDT, Route to Pharmacy Electronically, [id number], 178, cm, 10/15/22 8:07:00 EDT, Height, [...] tablet, Refills 0, Tot. Refills 0, Acute 03/24/23 8:00:00 EST, Pain , Severe, 03/17/23 8:18:00 EST, Instructions Replace Required Details, Print Requisi... Start Date: 03/17/23 Stop Date: 03/24/23 Status: Ordered OxyCODONE IR Tablet 10 mg, Tablet, By Mouth, Every 4 hours, PRN for Pain , Severe, Routine, 03/16/23 14:46:00 EST Start Date: 03/16/23 Stop Date: 03/23/23 Status: Ordered pantoprazole 40 mg oral delayed [...] EDT, Route to Pharmacy Electronically, [facility], Partial fill upon patient request if the prescription is for a schedule... Start Date: 11/24/21 Stop Date: 12/24/21 Status: Ordered traMADol 50 mg oral tablet See Instructions, PRN Pain , Mild, Take 1-2 tablets every 6 hours as needed for mild pain not to exceed 400 mg/day, # 56 tablet, 0 Refills, Acute 03/24/23 8:00:00 EST, 03/17/23 8:17:00 EST, Tablet, Partial fill upon patient request if the prescripti... Start Date: 03/17/23 Stop Date: 03/24/23 Status: Ordered Vitamin B12 1 tablet, By [...] Exam Date Time Procedure Performing Provider Status 03/16/23 3:55 PM Pelvis 1 or 2 Views Reeter , Ronaldo; Aut h (Verified) Notes: (Pelvis 1 or 2 Views) Reason For Exam: Postop Prosthesis RESULT: Pelvis 1 or 2 Views Pelvis 1 or 2 Views Reason: Postop Prosthesis; Clinical Question(s): Status of Hip Prosthesis; Special Instructions: LEFT Hip - To be done in PACU COMPARISON: 08/22/2022. FINDINGS: A single postop frontal view of the pelvis obtained postoperatively shows evidence of a cementless left hip arthroplasty appearing since the prior examination with the acetabular and femoral components in excellent position. There are expected postoperative changes laterally. ? Possible vasectomies. Moderate degenerative change right hip with marginal spurring of the lateral acetabulum. This is stable in appearance. IMPRESSION: Satisfactory post operative appearance of a cementless left hip arthroplasty as described above. WSN: [id number] Ordering Physician: Shahab Trevizo Dictated By: Gerson Servin MD, V Dictated Date/Time: 03/16/23 4:02 pm Reviewed By: Gerson Servin MD, V Signed By: Gerson Servin MD, V Signed Date/Time: 03/16/23 4:02 pm Transcribed By: MY Transcribed Date/Time: 03/16/23 4:00 pm * Exam Date Time Procedure Performing Provider Status 03/16/23 1:47 PM C-Arm < 1 Hour Virgen Riley; Juan José (Verified) Notes: (C-Arm < 1 Hour) Reason For Exam: Left Anterior Hip RESULT: C-Arm < 1 Hour Pelvis 1 or 2 Views, C-Arm < 1 Hour INDICATION: Reason: osteoarthritis, left total hip replacement, anterior approach COMPARISONS: None TECHNIQUE: Fluoroscopy support was provided. There was no radiologist in attendance. FLUOROSCOPY TIME: 09.2 seconds EXPOSURE: 0.5365 Gycm2 (Dose Area Product) TECHNOLOGIST TIME: 30 minutes FINDINGS: Multiple fluoroscopic images of the lower pelvis are obtained by the portable image intensifier into the were submitted for review and interpretation. A cementless total left hip arthroplasty was performed using computer aided musculoskeletal navigational techniques. The acetabular and femoral components and in excellent position. Please refer to the operative report for more details. IMPRESSION: See above. WSN: [id number] Ordering Physician: Dante Thompson Dictated By: Gerson Servin MD, V Dictated Date/Time: 03/16/23 1:54 pm Reviewed By: Gerson Servin MD, V Signed By: Gerson Servin MD, V Signed Date/Time: 03/16/23 1:54 pm Transcribed By: MY Transcribed Date/Time: 03/16/23 1:52 pm * Exam Date Time Procedure Performing Provider Status 03/16/23 1:47 PM Pelvis 1 or 2 Views Virgen Riley; Auth (Verified) Notes: (Pelvis 1 or 2 Views) Reason For Exam: osteoarthritis, left total hip replacement, anterior approach RESULT: Pelvis 1 or 2 Views Pelvis 1 or 2 Views, C-Arm < 1 Hour INDICATION: Reason: osteoarthritis, left total hip replacement, anterior approach COMPARISONS: None TECHNIQUE: Fluoroscopy support was provided. There was no radiologist in attendance. FLUOROSCOPY TIME: 09.2 seconds EXPOSURE: 0.5365 Gycm2 (Dose Area Product) TECHNOLOGIST TIME: 30 minutes FINDINGS: Multiple fluoroscopic images of the lower pelvis are obtained by the portable image intensifier into the were submitted for review and interpretation. A cementless total left hip arthroplasty was performed using computer aided musculoskeletal navigational techniques. The acetabular and femoral components and in excellent position. Please refer to the operative report for more details. IMPRESSION: See above. WSN: [id number] Ordering Physician: Dante Thompson Dictated By: Gerson Servin MD, V Dictated Date/Time: 03/16/23 1:54 pm Reviewed By: Gerson Servin MD, V Signed By: Gerson Servin MD, V Signed Date/Time: 03/16/23 1:54 pm Transcribed By: MY Transcribed Date/Time: 03/16/23 1:52 pm Vital Signs Most recent to oldest [Reference Range]: 1 2 3 Height 185 cm (03/17/23 12:49 PM) 185 cm (03/17/23 6:31 AM) 185 cm (03/17/23 2:48 AM) Weight 98 kg (03/16/23 4:54 PM) 99.3 kg (03/16/23 4:45 PM) Oxygen Saturation [94-100 %] 100 % (03/17/23 12:49 PM) 98 % (03/17/23 6:31 AM) 96 % (03/17/23 3:18 AM) Pulse Rate [55-90 bpm] 66 bpm (03/17/23 12:49 PM) 76 bpm (03/17/23 8:42 AM) 76 bpm (03/17/23 6:31 AM) Body Mass Index [18.5-24.99 kg/m2] 28.63 kg/m2 *H* (03/16/23 4:54 PM) 29.01 kg/m2 *H* (03/16/23 4:45 PM) Blood Pressure [90-138/55-84 mm Hg] 138/56mm Hg (03/17/23 12:49 PM) 154/56mm Hg *H* (03/17/23 8:42 AM) 154/56mm Hg *H* (03/17/23 8:42 AM) Respiratory Rate [16-30 br/min] 18 br/min (03/17/23 3:55 PM) 18 br/min (03/17/23 3:54 PM) 18 br/min (03/17/23 2:08 PM) Temperature [96.8-100.4 DegF] 98.3 DegF (03/17/23 12:49 PM) 98 DegF (03/17/23 6:31 AM) 98.7 DegF (03/17/23 2:48 AM) Mode of Delivery (Oxygen) Room air (03/17/23 12:49 PM) Room air (03/17/23 6:31 AM) Nasal CPAP (03/17/23 2:48 AM) Blood pressure sites Arm, left (03/17/23 12:49 PM) Arm, left (03/17/23 6:31 AM) Arm, left (03/17/23 2:48 AM) Temperature Route Oral (03/17/23 12:49 PM) Oral (03/17/23 6:31 AM) Oral (03/17/23 2:48 AM) Dry Weight 98 kg (03/16/23 4:54 PM) 99.3 kg (03/16/23 4:45 PM) Weight Obtained Via Patient/family stated (03/16/23 4:54 PM) Patient/family stated (03/16/23 4:45 PM) Dry Weight Obtained Via Patient/family stated (03/16/23 4:54 PM) Patient/family stated (03/16/23 4:45 PM) Social History Social History Type Response Smoking Status Never smoker; Tobacc o user in household: No entered on: 09/03/14 Sex Note * Event Display: Adult Preadmission Health Questionnaire Authored Date: * Lesa Oneill RN: PERFORM Event Display: Discharge/Transfer Note Hospital Authored Date: [id number] Nursing Discharge Note Entered On: 03/17/2023 15:56 EST Performed On: 03/17/2023 15:55 EST by Lesa Oneill RN Nursing Discharge Note 2 Discharge Time : 03/17/2023 15:50 EST Discharge Level of Care at Discharge : [facility] facility Discharge Nursing Homes/Rehab Facilities : [facility] Patient Left Unit Via : Wheelchair Patient Accompanied Off Unit with : Responsible adult DC Instructions Provided & Signed by Pt : Yes Patient Understands D/C Instructions : Yes Patient Instructions Discharge Signed : Yes Did Pt have Specialty Bed or Wound Vac : No Lesa Oneill RN - 03/17/2023 15:55 EST * Anna Berry NP: PERFORM, SIGN, VERIFY Kel Layton NP: MODIFY, SIGN Kel Layton NP: SIGN Event Display: Discharge/Transfer Note Hospital Authored Date: [id number] Patient: KRISTEN MUNGUIA Age: 72 years Sex: Male : 1950 Associated Diagnoses: None Author: Anna Berry NP Discharge Summary Admission Date: March 16, 2023 Discharge Date: March 17, 2023 Admitting Diagnosis: Left hip osteoarthritis Discharge Diagnosis: Left hip osteoarthritis Final Diagnosis : Left hip osteoarthritis Procedure: Left total hip arthroplasty Surgeon: Dr. Dante Thompson Past Medical History: 1. 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 2. Prostate cancer. He is status post prostatectomy and now reports urinary incontinence. 3. Previous spontaneous left sided pneumothorax. 4. Past ruptured cervical disk with surgical treatment and residual chronic back pain. 5. History of adenomatous polyps in diverticulosis. 6. Obstructive sleep apnea, where the patient wears a CPAP at night. 7. Early stages of dementia. 8. Hard of hearing without hearing aids. 9. Gout. 10. OCD. 11. Chronic kidney disease stage III. 12. Slight cognitive impairment. 13. Obesity with a BMI of 31.4. PAST SURGICAL HISTORY: 1. Radical prostatectomy. 2. History of disk surgery. 3. Cardiac catheterization in 2018. 4. Right thoracotomy. 5. Right hand pin. 6. Skin cancer removal. 7. Right rotator cuff repair in 2018. Orthopedics: The patient is status post left total hip arthroplasty. It is anticipated that they will be discharged to rehab today pending PT, OT clearance. The patient is doing well from a surgical standpoint. Their incision is healing well. Neurovascular status is intact. Calves are supple and non tender. Making good progress with Physical Therapy and Occupational therapy. Supervision with ambulation walking 30 feet , ambulating with a walker WBAT. Pain is well controlled on their current regimen, Acetaminophen 650 mg every 6 hours, Celebrex 200mg daily, Tramadol as needed for mild pain, andOxycodone as needed for moderate to severe pain. a Patient is tolerating this well. They will be sent to rehab with a prescription for this medication. Prescription: Tramadol 50 mg tablet. Take 1-2 tablets every 6 hours as needed for pain x 7 days. # 56 tablet. Oxycodone IR 5mg tablet. Take 1-2 tablets every 4 hours as needed for pain x 7 days. # 84 tablet. Hospital course: Relatively uneventful medically. Telemetry stable throughout length of stay. Patient was taking Celebrex prior to surgery. He was cautioned to monitor his kidney function while concurrently taking Celebrex due to his chronic kidney disease. The patient denies any nausea or vomiting [...] oral tablet) 5 Milligram By Mouth Daily Ascorbic Acid (Vitamin C 500 mg oral tablet) 1 tab(s) 500 Milligram By Mouth Daily Aspirin (Aspirin Tablet) 325 Milligram By Mouth 2 times a day Atorvastatin (atorvastatin 80 mg oral tablet) 1 tab(s) By Mouth Daily Carvedilol (carvedilol 12.5 mg oral tablet) 1 tablet By Mouth 2 times a day Celecoxib (celecoxib 200 mg oral capsule) 200 Milligram By Mouth Daily Patient was taking at home, monitor kidney function Cholecalciferol (Vitamin D3 1000 intl units oral capsule) 1 capsule 1,000 International Unit By Mouth Daily Cyanocobalamin (Vitamin B12) 1 tab(s) By Mouth Daily Docusate (Colace Capsule) 100 Milligram 1 capsule By Mouth 2 times a day Donepezil (donepezil 5 mg oral tablet) 1 [...] for moderate to severe pain. Pain , Severe Pantoprazole (pantoprazole 40 mg oral delayed release tablet) 40 Milligram By Mouth Daily Potassium Chloride (Potassium Chloride (Eqv-K-Tab) 20 mEq oral tablet, extended release) 2 tab(s) 40 Milliequivalent By Mouth Every Tuesday, Tuesday and Tuesday tadalafil (tadalafil 5 mg oral tablet) TAKE ONE TABLET BY MOUTH EVERY DAY FOR BLADDED URGE Testosterone (Testosterone Cypionate 200 mg/mL intramuscular solution) 0.3 Intramuscular Every Tuesday Thiamine (thiamine 100 mg oral tablet) 100 Milligram 1 tablet By Mouth 2 times a day for 30 Days Tramadol (traMADol 50 mg oral tablet) See Instructions as needed Pain , Mild Take 1-2 tablets every6 hours as needed for mild pain not to exceed 400 mg/day Allergies: Allergies (Active and Proposed Allergies Only) NKA (Severity: Unknown severity, Onset: Unknown) Current Labs: Basic Metabolic Panel: Hematology: Sodium: 137 mmol/L (03/17/23) Hgb: 11.6 Gm/dL (03/17/23) Potassium (POC): 4.3 mmol/L (03/17/23) Hemoglobin A1C (Monitoring): ------ Phosphorus: ------ WBC: 14.4 k/mm3 (03/17/23) Magnesium: ------ Platelets: 161 k/mm3 (03/17/23) BUN (POC) POC Cartridge: 12 mg/dL (03/17/23) INR Level: ------ Creatinine-Blood: 1.0 mg/dL (03/17/23) Creatinine Clearance: ------ Additional - Last 24 Hours Abs. NRBC: 0.0 k/mm3 (03/17/23) Anion Gap: 10 (03/17/23) Bicarbonate Level: 28 mmol/L (03/17/23) BUN: BUN (03/17/23) Chloride: 99 mmol/L (03/17/23) Creatinine, Blood: Creatinine, Blood (03/17/23) Est Creatinine Clearance: 72.89 (03/17/23) Estimated GFR Creatinine: 83 ML/MIN/1.73 M2 (03/17/23) Glucose, POC: Glucose, POC (03/16/23) Hct: 35.3 % (03/17/23) MCH: 31.5 pg (03/17/23) MCHC: 32.9 g/dL (03/17/23) MCV: 95.9 femtoliters (03/17/23) MPV: 11.9 femtoliters (03/17/23) Nucleated RBC (Automated): 0.0 #/100 WBC'S (03/17/23) RBC: 3.68 m/mm3 (03/17/23) RDW-SD: 49.8 femtoliters (03/17/23) Surgical Pathology: Surgical Pathology (03/16/23) DVT prophylaxis ASA EC 325 mg p o bid x 30 days Disposition: Anticipates being discharged today to rehab. Follow up at [facility] in two weeks , patient is aware of this. The patient has an Aquacel dressing in place. They may shower with it and the dressing can be discontinued on POD 14. Stay at the rehab is expected to be less than 30 days. Discharge Information Admission Date: 03/16/2023 Principal Discharge Diagnosis Discharge Plan Discharge Disposition Discharge: . * Rebecca Ramires RN: PERFORM, SIGN, VERIFY Event Display: Case Management Discharge Plan Authored Date: [id number] Patient: KRISTEN MUNGUIA Age: 72 years Sex: Male : 1950 Associated Diagnoses: None Author: Rebecca Ramires RN Discharge Plan Case Management Discharge Plan : Case Management Discharge Plan Data 03/17/2023 14:26 EST Discharge Level of Care at Discharge [facility] Discharge Nursing Homes/Rehab Facilities Hernesto Zarate [facility] Discharge Arranged Transport Date/Time 03/17/2023 15:30 Mode of Transportation Arranged Other Agency Public Health Program Manager #1 Intake Service Categories #1 Occupational Therapy, Physical Therapy Service Comments #1 You are going to rehab at [facility] in [place]. Name of Person Notified of Transfer Pt. and Elicia Munguia * Nino MURRELL, Lesa Medina: PERFORM, MODIFY Event Display: Patient Education/Instruction Authored Date: [id number] Inpatient Adult Discharge Instructions [address] [address] Name: KRISTEN MUNGUIA : 1950 Visit: 03/16/2023 13:46:00 Current Date: 03/17/2023 15:18 Account: [id number] Inpatient Adult Discharge Instructions We would like [...] and their families. Surveys are administered by [employer] ?? If further treatment with your primary care physician or another doctor is recommended, it is important for you to keep the appointment. Call your primary care physician or return to the Emergency Department immediately if your condition worsens, fails to improve, or new symptoms develop. If you need to find a doctor, you can call [facility] Link for a referral at [phone] or toll free at [phone]) or log in to [email or web address] ?? [facility], in keeping with [facility] guidance, no longer requires face masks [...] a health care crissy of your choosing. [employer] is a website that allows you to securely view your medical information including your hospital discharge summary, office visit summaries, medications and follow-up visits. You can also request appointments, renew medications, and request access to your medical information using a health care crissy of your choosing, or just ask a question. You can enroll at [email or web address] or register during your next office visit. You have been discharged from [facility], Patient Care Unit: SW7. If you have any questions regarding these instructions after you leave, please call us and we will be happy to assist you. [facility] Your Care Team Attending Physician Jay CABEZAS, Dante Ceron Consulting Providers Jay CABEZAS, Dante Ceron Discharging Providers Jamal SOUZA, Anna Reason for Admission OA LEFT HIP VANCE Your Diagnosis Unilateral primary osteoarthritis, left hip Tests Performed Below is a partial list of the tests performed during your hospitalization. You may have had other tests and procedures not included in this list. Please discuss all test results with your provider. [id number] BUN CBC Creatinine Electrolytes GLUCOSE POC XR C-Arm < 1 Hour XR Pelvis 1 or 2 Views Primary Care Provider Eve Warren MD, Larissa Medina Advance Directive Health Care Proxy on File Yes - Health Care Proxy Discharge Vitals Temperature: 98.3 DegF Height: 185 cm Pulse Rate: 66 bpm Weight: 98 kg Respiratory Rate: 18 br/min Body Mass Index:??28.63 kg/m2??High Systolic Blood Pressure: 138 mm Hg Body surface area: 2.24 Diastolic Blood Pressure: 56 mm Hg ?? Oxygen Saturation: 100 % ?? Studies Pending All tests and labs ordered during this hospital stay have been completed unless listed below. Please discuss all pending results with your provider listed above in these instructions. ?? BUN CBC Creatinine Electrolytes What to do next Instructions From Your Doctor Discharge Orders Scheduled Follow-Up Appointments Tuesday 8:15 AM EST ?? With: Maeve CABEZAS, Sophia Andrews Where: [facility] [address] [place] [address], [address] [place] [id number]- Status: Pending Tuesday 3:00 PM EDT ?? With: Bethanie CABEZAS, Janell Cope Where: [facility] [address] [place] [address] [place] [id number]- Status: Pending You Need to Schedule the Following Appointments Follow Up with??[facility] When:??Within 1 to 2 weeks Where: [address] [place] [address] [address] [place] [address]- Discharge Medications KRISTEN MUNGUIA :1950 Visit Date:03/16/2023 Medications: Please continue your medications until treatment is completed or stopped by your provider. Medications not listed below should be discontinued. Discuss any questions related to medications with your provider. What How Much When Why Instructions Next Dose New Amlodipine (amLODIPine 5 mg oral tablet) 5 Milligram Oral Daily am tomorrow New Docusate (Colace Capsule) 100 Milligram Oral Twice a day hold for loose stool 8pm todigh New Oxycodone (oxyCODONE 5 mg oral tablet) See instructions Take 1-2 tablets every 4 hours as needed for moderate to severe pain., As needed for Pain , Severe ?? Printed Prescription 6pm tonight New Pantoprazole (pantoprazole 40 mg oral delayed release tablet) 40 Milligram Oral Daily am tomorrow New Tramadol (traMADol 50 mg oral tablet) See instructions Take 1-2 tablets every 6 hours as needed for mild pain not to exceed 400 mg/ day, As needed for Pain , Mild ?? Printed Prescription as directed Changed Aspirin (Aspirin Tablet) 325 Milligram Oral Twice a day 8pm tonight Changed Celecoxib (celecoxib 200 mg oral capsule) 200 Milligram Oral Daily Paitent was taking at home, monitor kidney function ?? am tomorrow Unchanged Acetaminophen (acetaminophen 500 mg oral tablet) 2 tab(s) Oral Every 6 hours 8pm tonight Unchanged Allopurinol (allopurinol 300 mg oral tablet) 1 tab(s) Oral Daily am tomorrow Unchanged Ascorbic Acid (Vitamin C 500 mg oral tablet) 1 tab(s) Oral Daily am tomorrow Unchanged Atorvastatin (atorvastatin 80 mg oral tablet) 1 tab(s) Oral Daily am tomorrow Unchanged Carvedilol (carvedilol 12.5 mg oral tablet) 1 tab(s) Oral Twice a day 8pm today Unchanged Cholecalciferol (Vitamin D3 1000 intl units oral capsule) 1 capsule Oral Daily am tomorrow Unchanged Cyanocobalamin (Vitamin B12) 1 tab(s) Oral Daily am tomorrow Unchanged Donepezil (donepezil 5 mg oral tablet) 1 tab(s) Oral Daily at Bedtime bedtime today Unchanged Dorzolamide-Timolol Ophthalmic (dorzolamide-timolol 2.23%-0.68% ophthalmic solution) 1 Drops Right eye Twice a day pm tonight Unchanged Duloxetine (duloxetine 30 mg oral enteric coated capsule) 1 capsule Oral Daily start taking from ?? am tomorrow Unchanged Furosemide (furosemide 40 mg oral tablet) See instructions 1 TABLET BY MOUTH EVERY TUESDAY, TUESDAY AND TUESDAY ?? as directed Unchanged Gabapentin (gabapentin 300 mg oral capsule) 3 capsule Oral Twice a day Duration: 30 Days pm tonight Unchanged Latanoprost Ophthalmic (latanoprost 0.005% ophthalmic solution) 1 Drops Right eye Daily at Bedtime bedtime Unchanged Miscellaneous Rx (rocío stockings 15 to 20) See instructions bedtime rocío stockings 15-20 mmHg ?? Unchanged Nitroglycerin (nitroglycerin 0.4 mg sublingual tablet) 1 tab(s) Sublingual Every 5 minutes as needed for for chest pain Coronary artery disease not to exceed 3 doses/ 15 min--if pain persists, seek medical attention ?? as needed Unchanged Potassium Chloride (Potassium Chloride (Eqv-K-Tab) 20 mEq oral tablet, extended release) 2 tab(s) Oral Tuesday, Tuesday and Tuesday as directed Unchanged tadalafil (tadalafil 5 mg oral tablet) TAKE ONE TABLET BY MOUTH EVERY DAY FOR BLADDED URGE ?? as directed Unchanged Testosterone (Testosterone Cypionate 200 mg/ mL intramuscular solution) 0.3 Intramuscular Every Tuesday as directed Unchanged Thiamine (thiamine 100 mg oral tablet) 1 tab(s) Oral Twice a day Duration: 30 Days as directed ?? What How Much When Comments Stop Taking Chondroitin-Glucosamine 1 tab(s) Oral Twice a day Stop Taking Multivitamin 1 tab Oral Daily Test Results Below is a partial list of the most recent Laboratory test results done prior to this discharge. You may have had other tests and procedures not included in this list. Please discuss all test resultswith your provider. Est Creatinine Clearance - 72.89 mL/min (03/17/2023) [address] (03/16/2023) ? ?Surgical Pathology - Patient Name: KRISTEN MUNGUIA
Lab
Patient : 1950 (Age: 72)
Collection Date: 03/16/2023
Accession Date: 03/16/2023
Sign Out Date: 03/16/2023

T issue Source:
1:LEFT FEMORAL HEAD

Final Diagnosis:<br/& gt;Femoral head, left, excision:
- Femoral head with degenerative changes of articular cartilaginous surface and eburnation consistent with severe osteoarthritis (gross examination).

Primary Pathologist:Luis Alfredo Duncan M.D.
electronicallysigned out by: Luis Alfredo Duncan M.D. / PARRISH

Clinical History:
Osteoarthritis left hip

Gross Description:
Labeled left femoral head . Received in formalin is a 5.2 x 4.5x 4.5 cm femoral head with up to 1.7 cm of attached femoral neck. The margin of transection is smooth. The articular surface ranges from pink-red, granular to barragan-yellow, glistening. Minimal eburnation and pitting are present. Osteophytes are identified. Sectioning reveals yellow-red, trabecular cut surfaces. No sections are submitted. Gross exam only. (KM)*

Phone #: [phone], On-Call Pathologist: [id number] BUN (03/17/2023) ???BUN - 12 mg/dL CBC (03/17/2023) ???WBC - 14.4 k/mm3???RBC - 3.68 m/mm3???Hgb - 11.6 Gm/dL???Hct - 35.3 %???MCV - 95.9 femtoliters???MCH - 31.5 pg???MCHC - 32.9 g/dL???Platelet Count - 161 k/mm3???RDW-SD - 49.8 femtoliters???MPV - 11.9 femtoliters???Nucleated RBC (Automated) - 0.0 #/100 WBC'S???Abs. NRBC - 0.0 k/mm3 Creatinine (03/17/2023) ???Creatinine-Blood - 1.0 mg/dL???Estimated GFR Creatinine - 83 ML/MIN/1.73 M2 Electrolytes (03/17/2023) ???Sodium - 137 mmol/L???Potassium - 4.3 mmol/L???Chloride - 99 mmol/L???Bicarbonate Level - 28 mmol/L???Anion Gap - 10 GLUCOSE POC (03/16/2023) ???Glucose, POC - 245 mg/dL Allergies (NKA means No Known Allergies) NKA Problems Active Problems??(6) Chronic kidney disease, stage 3?? Cognitive impairment?? Coronary artery disease?? COVID-19?? Hypertension?? Hypokalemia?? Education Materials Below is the list of Educational Leaflet Providered with your Discharge Instructions. Valuables and Belongings I fully understand and agree that [facility] accepts no responsibility for all my [...] of Valuable and Belonging List: With patient Possessions released to: to pacu Date for Pt to Sign Valuables/Belongings: 03/16/23 12:44:00 ?? Other Discharge Information ? Case Management Discharge Plan?? Discharge Plan?? Discharge Agency Information?? Discharge Level of Care at Discharge: [facility] Agency Public Health Program Manager #1: Intake Mode of Transportation Arranged: Other Service Categories #1: Occupational Therapy, Physical Therapy Discharge Arranged Transport Date/Time: 03/17/23 15:30:00 Service Comments #1: You are going to rehab at [facility] Discharge Nursing Homes/Rehab Facilities: [facility] Name of Person Notified of Transfer: Pt. and Elicia Munguia ?? Pulmonary Rehab Status?? Pulmonary Rehab Discharge Status?? CPAP/BiPAP Mask Type: Nasal CPAP/BiPAP Mask Size: Medium Respiratory Rate: 18 [...] are strongly encouraged to quit. Please call [facility] [email or web address] Link at [phone] or [phone] ([phone]) or log in to [email or web address] for referrals to smoking cessation programs. ?? 888 Suicide & Crisis Lifeline is available 13/09 if you or someone you know needs to find a reason to keep living. By calling 047 you'll be connected to a skilled, trained counselor at a crisis center in your area. INPATIENT DISCHARGE INSTRUCTIONS SIGNATURE ROSETTA AIYANAJERAMIEKRISTEN Location:[facility] Registration Date and Time:03/16/2023 13:46 EST Primary Care Physician: Eve Warren MD, Larissa Medina, Attending Physician: Jay CABEZAS, Dante Ceron, I KRISTEN MUNGUIA, have received the above patient education materials/instructions and have verbalized understanding. If ambulance or transport services are being used I further acknowledge being given a choice of service. ?? If you need to contact me, please call me at this number: . Patient/Teacher Home Therapy Name: Patient/Teacher Home Therapy Signature: Relationship to Patient: Witness Name/Signature: Date: * Lesa Oneill RN: PERFORM Event Display: Patient Education Leaflets Authored Date: [id number] Total Hip Replacement Discharge Instructions ?? 666 Total Hip Replacement Discharge Instructions ? Please read and review your Total Hip Replacement Book for detailed information ??? Your appetite may be decreased but try to maintain a good balanced diet Incision ?Your incision is closed with absorbable stitches and surgical glue. ?The dressing is waterproof. You may shower the next day. ??? Your dressing will stay on for 1-2 weeks ?You cannot go in a bath, pool, ocean, pond, gallo or jacuzzi for 6 weeks. This is to reduce your risk of infection ? You may have some numbness around the incision. This is normal and will improve with time. Some patients have numbness that does not completely go away. ??? You may have skin discoloration (yellowish or bruising) around your incision which may develop. ??? Ice and elevation ? Ice is important to help keep swelling down. ?Keep your leg elevated as much as possible. ?Ice your hip 4 times a day for 20 minutes each time. Be sure not to put the ice/ice pack directly on your skin. Use a dishtowel or something similar between your skin and the ice. ??? Nelli Solares, and Dixie???Riley patients: The blue wedge is to be used between your knees when sleeping and sitting in a chair for the first few weeks. This keeps your hip in the proper position ? Moving ? Moving is especially important. This helps to prevent blood clots. Take short frequent walks. ? Exercises as per physical therapy ??? No driving until approved by your surgeon ??? Continue to move your foot up and down, these exercises help to prevent blood clots and help to decrease swelling in your hip. ?? When to call the Surgeon?CALL [phone] ? If you have shortness of breath or chestpain, call 911 or go to the nearest emergency department. ??? If you have drainage and/or redness around your wound. ??? If you have a fever greater than 101.5 (38.5 degrees Celsius). ??? If you havepersistent calf pain or swelling (This could be a blood clot). ??? If your pain is worsening. ? If you have any difficulty with urination or burning with urination. ?? * Nino MURRELL, Lesa Medina: PERFORM Event Display: Patient Education Leaflets Authored Date: [id number] Total Hip Replacement Discharge Instructions ?? 666 Total Hip Replacement Discharge Instructions ? Please read and review your Total Hip Replacement Book for detailed information ??? Your appetite may be decreased but try to maintain a good balanced diet Incision ?Your incision is closed with absorbable stitches and surgical glue. ?The dressing is waterproof. You may shower the next day. ??? Your dressing will stay on for 1-2 weeks ?You cannot go in a bath, pool, ocean, pond, gallo or jacuzzi for 6 weeks. This is to reduce your risk of infection ? You may have some numbness around the incision. This is normal and will improve with time. Some patients have numbness that does not completely go away. ??? You may have skin discoloration (yellowish or bruising) around your incision which may develop. ??? Ice and elevation ? Ice is important to help keep swelling down. ?Keep your leg elevated as much as possible. ?Ice your hip 4 times a day for 20 minutes each time. Be sure not to put the ice/ice pack directly on your skin. Use a dishtowel or something similar between your skin and the ice. ??? Nelli Solares, and Dixie???Riley patients: The blue wedge is to be used between your knees when sleeping and sitting in a chair for the first few weeks. This keeps your hip in the proper position ? Moving ? Moving is especially important. This helps to prevent blood clots. Take short frequent walks. ? Exercises as per physical therapy ??? No driving until approved by your surgeon ??? Continue to move your foot up and down, these exercises help to prevent blood clots and help to decrease swelling in your hip. ?? When to call the Surgeon?CALL [phone] ? If you have shortness of breath or chestpain, call 911 or go to the nearest emergency department. ??? If you have drainage and/or redness around your wound. ??? If you have a fever greater than 101.5 (38.5 degrees Celsius). ??? If you havepersistent calf pain or swelling (This could be a blood clot). ??? If your pain is worsening. ? If you have any difficulty with urination or burning with urination. ?? Cardiology * Event Display: Cardiac Rhythm Strips Authored Date: * Event Display: Cardiac Rhythm Strips Authored Date: Hospital Progress note * Nino MURRELL, Lesa Medina: PERFORM, MODIFY, SIGN, VERIFY Event Display: Progress Note Hospital Authored Date: Patient: KRISTEN MUNGUIA Age: 72 years Sex: Male : 1950 Associated Diagnoses: None Author: Lesa Oneill RN Findings Problem Related to Alteration in Musculoskeletal : Alteration in Musculoskeletal Func/new 03/17/2023 9:00 EST Alteration in Musculoskeletal Related to Mobility, Orthopedic Procedure, Total joint replacement, Other: A-L THR 03/[address] Thompson Goals & Outcomes, Musculoskeletal Affected extremity will maintain color/motion/sensation, Pt able to perform ADL's to best of ability, Pt demonstrates precautions/exercise/ transfers per protocol, Pt will ambulate safely with assistive device, Pt will be free from complications of immobility, Pt will demonstrate ability to participate in ADL's, Pt will report acceptable level of comfort/painrelief Interventions, Musculoskeletal monitor Color/Motion/Sensation, Teach pt/caregiver on use of pain scale Goals/Interventions, Musculoskeletal Yes Musculoskeletal, Problem Start 03/16/2023 21:00 Reviewed Plan with, Musculoskeletal Patient Patient Progression, Musculoskeletal Pt progressing according to plan . Nursing Data Biophysical Data. Narrative/Incidental Pt a&ox3, hx of early dimentia noted, bed and chair alarm activated, Lungs clear, i/s encouraged, tele monitor, NSR, HR 70's, Pt denies cp or sob, abd soft, +bs +flatus,thanh PO, LBM 1/3. Pt recused colace and miralax, left hip aquacel dressing cd&i, asa for DVT prophylaxis, Plan for home vs rehab when discharged.. Evaluation Good pain control with tylenol 650, gabapent 900 and oxy 10 mg, Pt rates pain 5/10 +pp +cap refill,+df.pf. * Toby Shafer RN: PERFORM, MODIFY, MODIFY, SIGN, VERIFY Event Display: Progress Note Hospital Authored Date: [id number] Patient: KRISTEN MUNGUIA Age: 72 years Sex: Male : 1950 Associated Diagnoses: None Author: Toby Shafer RN Findings Problem Related to Alteration in Comfort : Alteration in Comfort/new 03/16/2023 21:00 EST Alteration in Comfort Related to Surgery, Other: A-L THR 03/16 with De. Thompson Goals & Outcomes: Comfort Pt will report [...] accordingly Goals/Interventions, Comfort Yes Comfort, Problem Start 03/16/2023 21:00 Reviewed plan with, Comfort Patient, Children Patient Progression, Comfort Plan Initiation Comfort, Problem Ongoing Yes . Alteration in Musculoskeletal : Alteration in Musculoskeletal Func/new 03/16/2023 21:00 EST Alteration in Musculoskeletal Related to Mobility, Orthopedic Procedure, Total joint replacement, Other: A-L THR 03/[address] Thompson Goals & Outcomes, Musculoskeletal Affected [...] of immobility, Teach Pt/caregiver techniques to increase mobility Goals/Interventions, Musculoskeletal Yes Musculoskeletal, Problem Start 03/16/2023 21:00 Reviewed Plan with, Musculoskeletal Patient, Children Patient Progression, Musculoskeletal Plan Initiation . Nursing Data Vital Signs : VITAL SIGNS SECTION 03/17/2023 2:48 EST Early Warning Score 0.00 03/17/2023 2:48 EST Temperature 98.7 DegF Temperature Route Oral Pulse Rate 68 bpm Respiratory Rate 17 br/min Systolic Blood Pressure 124 mm Hg Diastolic Blood Pressure 50 mm Hg L Blood pressure sites Arm, left Mean Arterial Pressure 75 mm Hg Pulse Pressure 74 mm Hg Oxygen Saturation 96 % Mode of Delivery (Oxygen) Nasal CPAP . Narrative/Incidental Patient is A/Ox 3. VVS. Patient is assist x 1 with a walker. CTA. No complaints of CP or SOB. Patient complained of 8/10 pain managed with PRN Oxycodone with positive effect. Patient tolerated all medications whole. pvc monitor in place showing NSR ~80's. Patient voiding in urinal without issue. Last BM on 03/15. +BS abdomen is SRNT. No complaints of N/V. Left hip aquacel C/D/I with A block in place. +CMS. +PP, +PF, +DF. C-boots on. All safety measures in place. Bed in lowest position withwheels locked. Call ordaz on bed and within reach and frequent, purposeful rounding completed. Patient resting comfortably in bed, rise and fall of chest noted. No further issues at this time. CPAP onovernight. . * Alma Shelton RN: SIGN, VERIFY, PERFORM Event Display: Progress Note Hospital Authored Date: Patient: KRISTEN MUNGUIA Age: 72 years Sex: Male : 1950 Associated Diagnoses: None Author: Alma Shelton RN Findings Evaluation Pt arrived from [facility] approximately 4:54PM s/p L aTHR on 03/16 by , +PP, +CMS, D/P flexion, denies numbness, tingling, or calf pain. Pt able to ambulate from stretcher Aquacel on anterior hip, CDI, no s/sx of bleeding or infection noted. Ambulate with 1 assist with walker, steady gait noted. Pt A+Ox4, forgetful at times but redirectable, hx of slight cognitive impairment, early stage dementia, speech is clear, follows simple and complex commands. Visual field intact. Pt takes pills whole with water, tolerating well. Denies TORREZ, dizziness, N/V. NSR on telemetry, no edema noted. LS CTA,denies CP, SOB, no s/sx of respiratory distress noted. Continent for bowel and bladder, last BM 03/15/2023, +BSx4, soft and nontender abdomen noted. Voiding without pain or difficulty using urinal. C/O 9/10 R hip pain, PRN 0.5mg IV Dilaudid administered as ordered, ice pack applied, +effect. IV access on L wrist patent. Aspirin for DVT prophylaxis, Cboots in place. Pending PT/OT evaluation. Bed inlowest position, bed alarm on functioning, call ordaz in reach, hourly rounding maintained, will continue to monitor and document changes in CIS. Pt's daughter at bedside(Cecile Miles [phone]) stating pt [facility](d/t dementia, pt's can't take care of patient), will pass to lead coater, ok to call her overnight if help needed. Patient Care team information Care Team Personnel Name: Christiano Hernandez RN Position: S RN Member Role: Primary Care Nurse Name: Nova Soto RN Position: [facility] ED RN W/OE and Tasks Member Role: Primary Care Nurse Name: Larissa Griggs MD Position: [facility] Physician - Endocrinology Member Role: PCP Address: Address: [address] [place] [address] [place] [address]- Name: Zara Gongora Position[facility] Member Role: Lifetime Consulting Physician Address: Address: [address] [place], [place] [address] [place] [address]- Name: Lonnie Rosario RN Position: S RN Member Role: Primary Care Nurse Name: Jason Anand RN Position: S RN Member Role: Primary Care Nurse Name: Jannette Boyer RN Position: [facility] SN RN Member Role: Primary Care Nurse Name: Toby Shafer RN Position: S RN Member Role: Primary Care Nurse Name: Lesa Oneill RN Position: S RN Member Role: Primary Care Nurse Name: Sarina Del Rio RN Position: [facility] Onco RN Member Role: Primary Care Nurse Care Team Related Persons Name: CECILE MILES Name: AIYANAELICIA Address: [place] [address]
--- OUTSIDE RECORDS SUMMARY | 2024-01-13 12:04 | XMS_ITS | Continuity of Care Document ---
Author Organization [facility] Address [address] [place] [id number]- Care Team Providers Care Forestry Supervisor Name Role Phone Eve Warren MD, Larissa Medina Primary Care Physic sophia Encounter [facility] Date(s): 01/05/21 - 02/04/21 [facility] [address] [place] [id number]- [place] Allergies, Adverse Reactions, Alerts Substance Reaction Severity [...] 3 Refills, Maintenance, 02/04/21 14:50:00 EST, Tablet, [facility]/pharmacy #[id number], 186, cm, 11/27/20 13:22:00 EDT, Height [...] 05/02/20 13:32:00 EST, Route to Pharmacy Electronically, [facility]/pharmacy #[id number], Partial fill upon patient request [...] capsule, Refills 5, Route to Pharmacy Electronically, [id number], 186, cm, 11/27/20 13:22:00 EDT, Height Start [...] 01/05/21 13:15:00 EST, Route to Pharmacy Electronically, [facility]/pharmacy #[id number], 186, cm, 11/27/20 13:22:00 EDT, Height Start Date: 01/05/21 Stop Date: 12/31/21 Status: Ordered loperamide 2 mg oral tablet, chewable 1 tablet = 2 mg, Chew, 2 times a day, PRN for loose stool, # 20 tablet, 0 Refills, Maintenance, 08/16/19 18:31:00 EDT, Chew Tablet, [facility]/pharmacy #[id number], 1 tablet Chew 2 times [...] 1 Refills, Maintenance, 07/17/19 11:37:00 EDT, Tablet, [facility]/pharmacy #[id number], 186, cm, 03/02/19 8:12... Start [...] 0 Refills, Maintenance, 08/16/19 18:31:00 EDT, Tablet, [facility]/pharmacy #[id number], 186, cm, 03/02/19 8:12:00 EST, [...]
--- OUTSIDE RECORDS SUMMARY | 2024-01-13 12:04 | XMS_ITS | Continuity of Care Document ---
Author Organization [facility] Address [address] [facility], [address] Floor, [address] [place] [id number]- Care Team Providers Care Label Designer Name Role Phone Eve Warren MD, Larissa Medina Primary Care Physic sophia Encounter [facility] Date(s): 01/23/20 - 03/08/20 [facility] [address], [address], [address] [place] [address]- Attending Physician: Sophia Mcfarlane MD Admitting Physician: Sophia Mcfarlane MD Allergies, Adverse Reactions, Alerts Substance Reaction [...] Maintenance,01/31/20 10:05:00 EST, Route to Pharmacy Electronically, [facility]/pharmacy #[id number], 186, cm, 10/19/19 15:51:00 EDT, Height, [...] 02/07/20 14:17:00 EST, Route to Pharmacy Electronically, [facility]/pharmacy #[id number], Partial fill upon patient request if [...] 01/15/20 14:41:00 EST, Route to Pharmacy Electronically, [facility]/pharmacy #[id number], 186, cm, 10/19/19 15:51:00 EDT, Height, 97, kg, 06/16/18 9:43:00 EDT, Dry Weight Start Date: 01/15/20 Stop Date: 01/09/21 Status: Ordered loperamide 2 mg oral tablet, chewable 1 tablet = 2 mg, Chew, 2 times a day, PRN for loose stool, # 20 tablet, 0 Refills, Maintenance, 08/16/19 18:31:00 EDT, Chew Tablet, [facility]/pharmacy #[id number], 1 tablet Chew 2 times a day,PRN:for loose stool, 186, cm, 03/02/19 8:12:00 EST, Height, 97, kg, 04... Start Date: 08/16/19 Status: Ordered Multivitamin 1 tab, By Mouth, Daily, 0 Refills, Maintenance, 01/01/18 20:23:10 EST Start Date: 01/01/18 Status: Ordered nitroglycerin 0.4 mg sublingual tablet 1 tablet = 0.4 mg, Sublingual, Every 5 minutes, PRN for chest pain, not to exceed 3 doses/15 min--if pain persists, seek medical attention, # 100 tablet, 1 Refills, Maintenance, 07/17/19 11:37:00 EDT, Tablet, [facility]/pharmacy #[id number], 186, cm, 03/02/19 8:12... Start Date: [...] 0 Refills, Maintenance, 08/16/19 18:31:00 EDT, Tablet, [facility]/pharmacy #[id number], 186, cm, 03/02/19 8:12:00 EST, Height, [...]
--- OUTSIDE RECORDS SUMMARY | 2024-01-13 12:04 | XMS_ITS | Continuity of Care Document ---
Author Organization [facility] Address Unknown Care Team Providers Care Merchandising Execution Associate Name Role Phone Eve Warren MD, Larissa Medina Primary Care Physic sophia [id number] Date[facility]18[facility]21 - 04/17/21 [facility] Allergies, Adverse Reactions, Alerts No [...] 3 Refills, Maintenance, 02/04/21 14:50:00 EST, Tablet, [facility]/pharmacy #[id number], 186, cm, 11/27/20 13:22:00 EDT, [...] 05/02/20 13:32:00 EST, Route to Pharmacy Electronically, [facility]/pharmacy #[id number], Partial fill upon patient [...] capsule, Refills 5, Route to Pharmacy Electronically, [facility] [id number], 186, cm, 11/27/20 13:22:00 EDT, Height Start [...] 01/05/21 13:15:00 EST, Route to Pharmacy Electronically, [facility]/pharmacy #[id number], 186, cm, 11/27/20 13:22:00 EDT, Height Start Date: 01/05/21 Stop Date: 12/31/21 Status: Ordered loperamide 2 mg oral tablet, chewable 1 tablet = 2 mg, Chew, 2 times a day, PRN for loose stool, # 20 tablet, 0 Refills, Maintenance, 08/16/19 18:31:00 EDT, Chew Tablet, [facility]/pharmacy #[id number], 1 tablet Chew 2 times [...] 1 Refills, Maintenance, 07/17/19 11:37:00 EDT, Tablet, [facility]/pharmacy #[id number], 186, cm, 03/02/19 8:12... Start [...]
--- OUTSIDE RECORDS SUMMARY | 2024-01-13 12:05 | XMS_ITS | Continuity of Care Document ---
Author Organization [facility] ter Address [address] [place] [address]- Care Team Providers Care Geography Head Name Role Phone Eve Warren MD, Larissa Medina Primary Care Physic sophia Encounter [facility] Date(s): 02/02/23 - 03/04/[address] [address] Attending Physician: Cristiano Prado Admitting Physician: AdmCristiano [...] tablet, 3 Refills, Maintenance, 11/22/22 7:50:00 EDT, [facility] STORE [id number], 178, cm, 10/15/22 8:07:00 EDT, Height, 99.3, kg, 08/22/22 14:01:00 EDT, Dry Weight Start Date: 11/22/22 Status: Ordered carvedilol 12.5 mg oral tablet 1, tablet, By Mouth, 2 times a day, # 180 tablet, Refills 3, Maintenance, 02/10/23 15:08:00 EST, Route to Pharmacy Electronically, [facility] 10818, 178, cm, 02/03/23 11:28:00 EST, Height, 99.3, [...] 11/10/22 14:37:00 EDT, Route to Pharmacy Electronically, [facility] 10961, 178, cm, 10/15/22 8:07:00 EDT, Height, 99.3, [...] Refills, Maintenance, 11/28/21 9:00:00 EDT, [facility], Partial fill upon patient request if the prescription is for a schedule II opioid drug., 187, cm, 10/0... Start Date: 11/28/21 Status: Ordered furosemide 40 mg oral tablet See Instructions, 1 TABLET BY MOUTH EVERY TUESDAY, TUESDAY AND TUESDAY, # 39 tablet, Refills 1, Maintenance, 01/24/23 7:47:00 EST, Instructions Replace Required Details, Route to Pharmacy Electronically, [facility] STORE [id number], 178, cm, 10/15/22 8:07:00 EDT,... Start Date: 01/24/23 Status: Ordered gabapentin 300 mg oral capsule 900 mg, 3, capsule, By Mouth, 2 times a day, # 180 capsule, Refills 5, Tot. Refills 5, Maintenance,10/15/22 8:33:00 EDT, Route to Pharmacy Electronically, [facility]/pharmacy #[id number], 178, cm, 10/15/22 8:07:00 [...] 1 Refills, Maintenance, 05/29/21 14:41:00 EDT, Tablet, [facility]/pharmacy #[id number], 186, cm, 05/29/21 14:1... [...] EDT, Route to Pharmacy Electronically, [facility], Partial fill upon [...] Team Personnel Name: Christiano Hernandez RN Position: [facility] RN Member Role: Primary Care Nurse Name: Nova Soto RN Position: [facility] ED RN W/OE and Tasks Member Role: Primary Care Nurse Name: Larissa Griggs MD Position: [facility] Physician - Endocrinology Member Role: PCP Address: Address: [address] [place] [address] [place] [address]- Name: Zara Gongora Position: [facility] Outreach Member Role: Lifetime Consulting Physician Name: China Gomez Position: [facility] RN Member Role: Primary Care Nurse Name: Arpit Davis RN Position: [facility] ED RN W/OE and Tasks Member Role: Primary Care Nurse Name: Gala Schwartz RN Position: [facility] RN Member Role: Primary Care Nurse Name: Marc Sidhu DO Position: [facility] Renal MD Member Role: Lifetime Consulting Physician Address: Address: [address] [place], [place] [address] [place] [address]- Name: Lonnie Rosario RN Position: [facility] RN Member Role: Primary Care Nurse Name: Jason Anand RN Position: [facility] RN Member Role: Primary Care Nurse Name: Jannette Boyer RN Position: [facility] SN RN Member Role: Primary Care Nurse Name: Sarina Del Rio RN Position: [facility] Onco RN Member Role: Primary Care Nurse Care Team Related Persons Name: ALISIA TRINIDAD Name: AIYANA ELICIA Address: home [address] [place] [address]
--- OUTSIDE RECORDS SUMMARY | 2024-01-13 12:05 | XMS_ITS | Continuity of Care Document ---
Author Organization [facility] Address [address] [place] [address]- Care Team Providers Care Stocking Inspector Name Role Phone Eve Warren MD, Larissa Medina Primary Care Physic sophia Encounter [facility] Date(s): 02/11/23 - 02/18/23 [facility] [address], [place] [address] Attending Physician: Willa CABEZAS, Vadim Zarate Referring Physician: Dante Thompson MD Allergies, Adverse [...] Refills, Maintenance, 11/22/22 7:50:00 EDT, [facility], 178, cm, 10/15/22 8:07:00 EDT, Height, 99.3, kg, 08/22/22 14:01:00 EDT, Dry Weight Start Date: 11/22/22 Status: Ordered carvedilol 12.5 mg oral tablet 1, tablet, By Mouth, 2 times a day, # 180 tablet, Refills 3, Maintenance, 02/10/23 15:08:00 EST, Route to Pharmacy Electronically, [facility] 96837, 178, cm, 02/03/23 11:28:00 EST, Height, 99.3, [...] 11/10/22 14:37:00 EDT, Route to Pharmacy Electronically, [facility] 26785, 178, cm, 10/15/22 8:07:00 EDT, Height, 99.3, kg, 08/22/22 14:01:00 EDT, Dry Weight Start Date: 11/10/22 Status: Ordered dorzolamide-timolol 2.23%-0.68% ophthalmic solution 1 drops, Eye, Right, 2 times a day Start Date: 11/19/21 Status: Ordered duloxetine 30 mg oral enteric coated capsule 1 capsule = 30 mg, By Mouth, Daily, start taking from 11/28/21, # 30 capsule, 0 Refills, Maintenance, 11/28/21 9:00:00 EDT, [facility], Partial fill upon patient request if the prescription is for a schedule II opioid drug., 187, cm, 10/0... Start Date: 11/28/21 Status: Ordered furosemide 40 mg oral tablet See Instructions, 1 TABLET BY MOUTH EVERY TUESDAY, TUESDAY AND TUESDAY, # 39 tablet, Refills 1, Maintenance, 01/24/23 7:47:00 EST, Instructions Replace Required Details, Route to Pharmacy Electronically, [facility] 09854, 178, cm, 10/15/22 8:07:00 EDT,... Start Date: 01/24/23 Status: Ordered gabapentin 300 mg oral capsule 900 mg, 3, capsule, By Mouth, 2 times a day, # 180 capsule, Refills 5, Tot. Refills 5, Maintenance,10/15/22 8:33:00 EDT, [id number] 178, cm, 10/15/22 8:07:00 EDT, Height, [...] 11/24/21 11:13:00 EDT, Route to Pharmacy Electronically, [facility], Partial fill upon patient request if [...] Procedure Date Related Diagnosis Body Site Status History of radical prostatectomy Completed Vital Signs Most recent to oldest [Reference Range]: 1 Height 178 cm (02/11/23 12:15 PM) Weight 99.6 kg (02/11/23 12:15 PM) Oxygen Saturation [94-100 %] 97 % (02/11/23 12:15 PM) Pulse Rate [55-90 bpm] 72 bpm (02/11/23 12:15 PM) Body Mass Index [18.5-24.99 kg/m2] 31.44 kg/m2 *>HHI* (02/11/23 12:15 PM) Blood Pressure [90-138/55-84 mm Hg] 144/ 70mm Hg *H* (02/11/23 12:15 PM) Respiratory Rate [16-30 br/min] 16 br/mi n (02/11/23 12:15 PM) Blood pressure sites Arm, left (02/11/23 12:15 PM) Weight Obtained Via Standing scale (02/11/23 12:15 PM) Social History Social History Type Response Smoking Status Never smoker; Tobacc o user in household: No entered on: 09/03/14 Sex EKG study * Event Display: ECG 12-Lead Authored Date: Please click on pdf link to open report * Event Display: ECG 12-Lead Authored Date: Ventricular Rate: 62 BPM Atrial Rate: 62 BPM P-R Interval: 182 ms QRS Duration: 92 ms Q-T Interval: 414 ms QTC Calculation(Bazett): 420 ms P [place]: 47 degrees R [place]: -9 degrees T [place]: 57 degrees Sinus rhythm with marked sinus arrhythmia with occasional Premature ventricular complexes Right atrial enlargement Abnormal ECG When compared with ECG of 25-APR-2022 20:31, Fusion complexes are no longer Present Premature ventricular complexes are now Present Vent. rate has decreased BY 43 BPM Confirmed by YIN DAVIS ([id number]) on 02/11/2023 3:23:42 PM Payette: YIN DAVIS Patient Care team information Care Team Personnel Name: Christiano Hernandez RN Position: S RN Member Role: Primary Care Nurse Name: Nova Soto RN Position: [facility] ED RN W/OE and Tasks Member Role: Primary Care Nurse Name: Larissa Griggs MD Position: [facility] Physician - Endocrinology Member Role: PCP Address: Address: [address] [place] [address] [place] [address]- Name: Rolan Zara Position: [facility] Outreach Member Role: Lifetime Consulting Physician Name: China Gomez Position: [facility] RN Member Role: Primary Care Nurse Name: Arpit Davis RN Position: [facility] ED RN W/OE and Tasks Member Role: Primary Care Nurse Name: Gala Schwartz RN Position: S RN Member Role: Primary Care Nurse Name: Marc Sidhu DO Position: [facility] Renal MD Member Role: Lifetime Consulting Physician Address: Address: [address] [place] [address] [address] [facility] [place] [address]- Name: Lonnie Rosario RN Position: [facility] RN Member Role: Primary Care Nurse Name: Jason Anand RN Position: [facility] RN Member Role: Primary Care Nurse Name: Jannette Boyer RN Position: [facility] SN RN Member Role: Primary Care Nurse Name: Sarina Del Rio RN Position: [facility] Onco RN Member Role: Primary Care Nurse Care Team Related Persons Name: TRINIDAD CRUMP Name: ELICIA BRONSON Address: home [address] [place] [address]
--- OUTSIDE RECORDS SUMMARY | 2024-01-13 12:05 | XMS_ITS | Continuity of Care Document ---
Author Organization [facility] Address [address] [facility], [address] d Floor, [address] [place] [address]- Care Team Providers Care Recreation Therapy Teacher Name Role Phone Eve Warren MD, Larissa Medina Primary Care Physic sophia Encounter [facility] Date(s): 02/10/22 - 03/12/22 [facility] [address], [address] Floor, [address] [place] [address]- Allergies, Adverse Reactions, Alerts No Known Allergies [...] Maintenance, 12/17/21 15:20:00 EDT, Tablet, [facility]/pharmacy #[id number], Partial fill upon patient [...] Refills, Maintenance, 11/03/21 16:31:00 EDT, [facility], 186, cm, 10/23/21 14:57:00 EDT, Height, 88.1, [...] EDT, Route to Pharmacy Electronically, [facility]/pharmacy #[id number], Partial fill upon patient [...] capsule, 0 Refills, Maintenance, 11/28/21 9:00:00 EDT, [facility], Partial fill upon patient request if the prescription is for a schedule II opioid drug., 187, cm, 10/0... Start Date: 11/28/21 Status: Ordered furosemide 40 mg oral tablet 1, tablet, By Mouth, Daily, PRN, LEG SWELLING., # 30 tablet, Refills 3, Maintenance, NEEDED, 02/16/22 7:39:00 EST, Route to Pharmacy Electronically, [facility] STORE 02106, 187, cm, 01/26/22 11:24:00 EST, Height, 91, kg, 11/20/21 17:55:00 EDT, Dry Weight Start Date: 02/16/22 Status: Ordered gabapentin 300 mg oral capsule 600 mg, 2, capsule, By Mouth, 2 times a day, # 120 capsule, Refills 5, Tot. Refills 5, Maintenance,02/10/22 15:57:00 EST, [id number] Partial fill upon patient request [...] Maintenance, 05/29/21 14:41:00 EDT, Tablet, [facility]/pharmacy #[id number], 186, cm, 05/29/21 14:1... [...] 3 Refills, Maintenance, 02/05/22 15:19:00 EST, [facility]/pharmacy #[id number], 187, cm, 01/26/22 11:24:00 EST, Height, [...] 11/24/21 11:13:00 EDT, Route to Pharmacy Electronically, [facility], Partial fill upon patient [...] Member Role: Primary Care Nurse Name: Nova Soot RN Position: [facility] ED RN W/OE and Tasks Member Role: Primary Care Nurse Name: Larissa Griggs MD Position: [facility] Physician (General Medicine) Member Role: PCP Address: Address: [address] [place] [address] [place] [address]- Name: Zara Gongora Position: [facility] Outreach Member Role: Lifetime Consulting Physician Name: China Gomez Position: [facility] RN Member Role: Primary Care Nurse Name: Arpit Davis RN Position: [facility] ED RN W/OE and Tasks Member Role: Primary Care Nurse Name: Gala Schwartz RN Position: [facility] RN Member Role: Primary Care Nurse Name: Marc Sidhu DO Position: [facility] Renal MD Member Role: Lifetime Consulting Physician Address: Address: [address] [place], [place] [address] [place] [address]- Name: Jannette Boyer RN Position: S RN Member Role: Primary Care Nurse Name: Sarina Del Rio RN Position: [facility] Onco RN Member Role: Primary Care Nurse Care Team Related Persons Name: TRINIDAD CRUMP Name: ELICIA BRONSON Address: home [address] [place] [address]
--- OUTSIDE RECORDS SUMMARY | 2024-01-13 12:05 | XMS_ITS | Continuity of Care Document ---
Author Organization [facility] Address [address] [place] [address]- Care Team Providers Care Ship Cleaner Name Role Phone Eve Warren MD, Larissa Medina Primary Care Physic sophia Encounter [facility] Date(s): 10/19/19 - 10/26/19 [facility] [address] [place] [address] [facility] Encounter Diagnosis Coronary artery disease(Discharge Diagnosis) - 10/19/19 Hypertension(Discharge Diagnosis) - 10/19/19 Hypokalemia(Discharge Diagnosis) - 10/19/19 Heart failure with reduced ejection fraction(Discharge Diagnosis) - 10/19/19 Attending Physician: Isidoro Marx MD Referring Physician: [...] Dry Weight Start Date: 02/20/19 Status: Ordered colchicine 0.6 mg oral tablet 0.6 mg, 1, tablet, By Mouth, Daily, Refills 0, Maintenance, 01/01/18 18:45:03 EST Start Date: 01/01/18 Status: Ordered Coreg 6.25 mg oral tablet 6.25 mg, 1, tablet, By Mouth, 2 times a day, # 60 tablet, Refills 11, Tot. Refills 11, Maintenance,02/01/19 9:26:07 EST, Route to Pharmacy Electronically, [id number], [facility]/pharmacy #[id number], 186, cm, 01/30/19 9:20:58 EST, Height... [...] 01/22/19 9:48:35 EST, Route to Pharmacy Electronically, [id number], [facility]/pharmacy #[id number] Start Date: 01/22/19 Stop Date: 01/17/20 Status: Ordered loperamide 2 mg oral tablet, chewable 1 tablet = 2 mg, Chew, 2 times a day, PRN for loose stool, # 20 tablet, 0 Refills, Maintenance, 08/16/19 18:31:00 EDT, Chew Tablet, [facility]/pharmacy #[id number], 1 tablet Chew 2 times a [...] Refills, Maintenance, 07/17/19 11:37:00 EDT, Tablet, [facility]/pharmacy #1070, 186, cm, 03/02/19 8:12... Start Date: [...] Service Informant Coronary artery disease Discharge Diagnosis 10/19/19 Hypertension Discharge Diagnosis 10/19/19 Hypokalemia Discharge Diagnosis 10/19/19 Heart failure with reduced ejection fraction Discharge Diagnosis 10/19/19 Vital Signs Most recent to oldest [Reference Range]: 1 Height 186 cm (10/19/19 3:51 PM) Weight 91.5 kg (10/19/19 3:51 PM) Oxygen Saturation [94-100 %] 98 % (10/19/19 3:51 PM) Pulse Rate [55-90 bpm] 84 bpm (10/19/19 3:51 PM) Body Mass Index [18.5-24.99] 26.45 *H* (10/19/19 3:51 PM) Blood Pressure [90-138/55-84 mm Hg] 124/ 68mm Hg (10/19/19 3:51 PM) Temperature [96.8-100.4 DegF] 98.0 DegF (10/19/19 3:51 PM) Blood pressure sites Arm, right (10/19/19 3:51 PM) Temperature Route Temporal (10/19/19 3:51 PM) Social History Social History Type Response Smoking Status Never smoker; Tobacc o user in household: No entered on: 09/03/14 Sex
--- OUTSIDE RECORDS SUMMARY | 2024-01-13 12:05 | XMS_ITS | Continuity of Care Document ---
Author Organization [facility] Address [address] [place] [address]- Care Team Providers Care Commercial Manager Name Role Phone Eve Warren MD, Larissa Medina Primary Care Physic sophia En[place] [facility] Date(s): 02/05/22 - 03/07/22 [facility] [address] [place] [address]- [place] Allergies, Adverse Reactions, Alerts No Known [...] 3 Refills, Maintenance, 12/17/21 15:20:00 EDT, Tablet, [facility]/pharmacy #[id number], Partial fill upon patient request [...] tablet, 3 Refills, Maintenance, 11/03/21 16:31:00 EDT, [facility] STORE 81367, 186, cm, 10/23/21 14:57:00 EDT, Height, 88.1, [...] 15:20:00 EDT, Route to Pharmacy Electronically, [facility]/pharmacy #[id number], Partial fill upon patient request [...] capsule, 0 Refills, Maintenance, 11/28/21 9:00:00 EDT, [facility], Partial fill upon patient request if the prescription is for a schedule II opioid drug., 187, cm, 10/0... Start Date: 11/28/21 Status: Ordered furosemide 40 mg oral tablet 1, tablet, By Mouth, Daily, PRN, LEG SWELLING., # 30 tablet, Refills 3, Maintenance, NEEDED, 02/16/22 7:39:00 EST, Route to Pharmacy Electronically, [facility] STORE 27454, 187, cm, 01/26/22 11:24:00 EST, Height, 91, kg, 11/20/21 17:55:00 EDT, Dry Weight Start Date: 02/16/22 Status: Ordered gabapentin 300 mg oral capsule 600 mg, 2, capsule, By Mouth, 2 times a day, # 120 capsule, Refills 5, Tot. Refills 5, Maintenance,02/10/22 15:57:00 EST, Route [facility] Pharmacy Electron[facility], [facility] [...] capsule, 3 Refills, Maintenance, 02/05/22 15:19:00 EST, [facility]/pharmacy #[id number], 187, cm, 01/26/22 11:24:00 EST, Height, [...] 11/24/21 11:13:00 EDT, Route to Pharmacy Electronically, [facility], Partial fill upon [...] Nurse Name: Nova Soto RN Position: [facility] ED RN W/OE and Tasks Member Role: Primary Care Nurse Name: Larissa Griggs MD Position: [facility] Physician (General Medicine) Member Role: PCP Address: Address: [address] [place] [address] [place] [address]- Name: Zara Gongora Position: [facility] Outreach Member Role: Lifetime Consulting Physician Name: China Gomez Position: [facility] RN Member Role: Primary Care Nurse Name: Arpit Davis RN Position: [facility] ED RN W/OE and Tasks Member Role: Primary Care Nurse Name: Gala Schwartz RN Position: [facility] RN Member Role: Primary Care Nurse Name: Marc Sidhu DO Position: [facility] Renal MD Member Role: Lifetime Consulting Physician Address: Address: [address] [place] [address] [address] [facility] [place] [address]- Name: Jannette Boyer RN Position: [facility] RN Member Role: Primary Care Nurse Name: Quang MURRELL, Sarina Gandara Position: [facility] Onco RN Member Role: Primary Care Nurse Care Team Related Persons Name: TRINIDAD CRUMP Name: ELICIA BRONSON Address: home [address] [place] [address]
--- OUTSIDE RECORDS SUMMARY | 2024-01-13 12:05 | XMS_ITS | Continuity of Care Document ---
Author Organization [facility] Address [address] [place] [address]- Care Team Providers Care Mixing Tumbler Operator Name Role Phone Eve Warren MD, Larissa Medina Primary Care Physic sophia Encounter [facility] Date(s): 11/20/21 - 12/20/[address] [address] Allergies, Adverse Reactions, Alerts No Known Allergies [...] 3 Refills, Maintenance, 12/17/21 15:20:00 EDT, Tablet, [facility]/pharmacy #[id number], Partial fill upon patient request [...] tablet, 3 Refills, Maintenance, 11/03/21 16:31:00 EDT, [facility] STORE 96941, 186, cm, 10/23/21 14:57:00 EDT, Height, 88.1, kg, 07/01/21 14:48:00 EDT, Dry Weight Start Date: 11/03/21 Status: Ordered Coreg 12.5 mg oral tablet 12.5 mg, 1, tablet, By Mouth, 2 times a day, # 180 tablet, Refills 3, Tot. Refills 3, Maintenance, 12/17/21 15:20:00 EDT, Route to Pharmacy Electronically, [facility]/pharmacy #[id number], Partial fill upon patient request [...] capsule, 0 Refills, Maintenance, 11/28/21 9:00:00 EDT, [facility], Partial fill upon [...] 1 Refills, Maintenance, 05/29/21 14:41:00 EDT, Tablet, [facility]/pharmacy #[id number], 186, cm, 05/29/21 14:1... Start [...] 11/24/21 11:13:00 EDT, Route to Pharmacy Electronically, [facility], Partial fill upon [...] Eve Warren MD, Larissa Medina Address: Address: [address] [place] [address] [facility] [place], [place] [address]
--- OUTSIDE RECORDS SUMMARY | 2024-01-13 12:05 | XMS_ITS | Continuity of Care Document ---
Author Organization [facility] Address [address] [place] [phone]- Care Team Providers Care Dance Director Name Role Phone Eve Warren MD, Larissa Medina Primary Care Physic sophia Encounter [facility] Date(s): 06/30/23 - 07/30/23 [facility] [address] [place] [address]- [place] Allergies, Adverse Reactions, Alerts No Known [...] tablet, 3 Refills, Maintenance, 06/30/23 10:54:00 EDT, [facility] #[id number], 186, cm, 06/21/23 15:46:00 EDT, Height, 102, kg, 06/21/23 15:46:00 EDT, Dry Weight Start Date: 06/30/23 Status: Ordered carvedilol 12.5 mg oral tablet 1, tablet, By Mouth, 2 times a day, # 180 tablet, Refills 3, Maintenance, 02/10/23 15:08:00 EST, Route to Pharmacy Electronically, [facility], 178, cm, 02/03/23 11:28:00 EST, Height, 99.3, [...] 11/10/22 14:37:00 EDT, Route to Pharmacy Electronically, [facility], 178, cm, 10/15/22 8:07:00 EDT, Height, 99.3, kg, 08/22/22 14:01:00 EDT, Dry Weight Start Date: 11/10/22 Status: Ordered dorzolamide-timolol 2.23%-0.68% ophthalmic solution 1 drops, Eye, Right, 2 times a day Start Date: 11/19/21 Status: Ordered duloxetine 30 mg oral enteric coated capsule 1 capsule = 30 mg, By Mouth, Daily, start taking from 11/28/21, # 30 capsule, 0 Refills, Maintenance, 11/28/21 9:00:00 EDT, [facility], Partial fill upon patient request if the prescription is for a schedule II opioid drug., 187, cm, 100... Start Date: 11/28/21 Status: Ordered furosemide 40 mg oral tablet See Instructions, 1 TABLET BY MOUTH EVERY TUESDAY, TUESDAY AND TUESDAY, # 39 tablet, Refills 1, Maintenance, 01/24/23 7:47:00 EST, Instructions Replace Required Details, Route to Pharmacy Electronically, [facility], 178, cm, 10/15/22 8:07:00 EDT,... Start Date: 01/24/23 Status: Ordered gabapentin 300 mg oral capsule 900 mg, 3, capsule, By Mouth, 2 times a day, # 180 capsule, Refills 5, Tot. Refills 5, Maintenance,10/15/22 8:33:00 EDT, Route to Pharmacy Electronically, [facility]/pharmacy #1070, 178, cm, 10/15/22 8:07:00 EDT, Height, 99.3, kg, 08/22/22 14:01:00 EDT, Dry... Start Date: 10/15/22 Stop Date: 04/13/23 Status: Ordered gabapentin 300 mg oral capsule 900 mg, 3, capsule, By Mouth, 2 times a day, # 180 capsule, Refills 5, Tot. Refills 5, Maintenance,05/19/23 12:29:00 EDT, [id number], 186, cm, 04/20/23 21:24:00 EST, Height, 95.5, [...] Refills, Maintenance, 04/20/23 19:59:00 EST, Film, [facility]/pharmacy #0750, Partial fill upon patient request if [...] Refills, Maintenance, 05/29/21 14:41:00 EDT, Tablet, [facility]/pharmacy #1070, 186, cm, 05/29/21 14:1... Start Date: 05/29/21 Status: Ordered oxyCODONE 5 mg oral capsule 1 capsule = 5 mg, By Mouth, Every 6 hours, PRN for pain, # 28 capsule, 0 Refills, Maintenance, 04/20/23 19:53:00 EST, Capsule, [facility]/pharmacy #0750, Partial fill upon patient request if [...] Refills, Maintenance, 07/21/23 11:34:00 EDT, [facility], 186, cm, 06/21/23 15:46:00 EDT, Height, 102, [...] 11/24/21 11:13:00 EDT, Route to Pharmacy Electronically, [facility], Partial fill upon patient [...] Team Personnel Name: Christiano Hernandez RN Position: [facility] RN Member Role: Primary Care Nurse Name: Nova Soto RN Position: [facility] ED RN W/OE and Tasks Member Role: Primary Care Nurse Name: Larissa Griggs MD Position: [facility] Physician - Endocrinology Member Role: PCP Address: Address: [address] [place] [address] [facility] [address] Name: Zara Gongora Position: [facility] Outreach Member Role: Lifetime Consulting Physician Name: China Gomez Position: [facility] RN Member Role: Primary Care Nurse Name: Arpit Davis RN Position: [facility] ED RN W/OE and Tasks Member Role: Primary Care Nurse Name: Gala Schwartz RN Position: [facility] RN Member Role: Primary Care Nurse Name: Marc Sidhu DO Position: [facility] Renal MD Member Role: Lifetime Consulting Physician Address: Address: [address] [place] [address] [address] [facility] [place], [place] [address] Name: Lonnie Rosario RN Position: [facility] RN Member Role: Primary Care Nurse Name: Jason Anand RN Position: [facility] RN Member Role: Primary Care Nurse Name: Jannette Boyer RN Position: [facility] AMB Nurse Member Role: Primary Care Nurse Name: Toby Shafer RN Position: [facility] RN Member Role: Primary Care Nurse Name: Lesa Oneill RN Position: [facility] RN Member Role: Primary Care Nurse Name: Sarina Del Rio RN Position: [facility] Onco RN Member Role: Primary Care Nurse Care Team Related Persons Name: TRINIDAD CRMUP Name: ELICIA BRONSON Address: [address] [place] [address]
--- OUTSIDE RECORDS SUMMARY | 2024-01-13 12:05 | XMS_ITS | Continuity of Care Document ---
Author Organization [facility] Address [address] [place] [address]- Care Team Providers Care Lamp Cleaner Name Role Phone Eve Warren MD, Larissa Medina Primary Care Physic sophia Encounter [facility] [place] Date(s): 07/20/23 - 08/19/23 [facility] [address] [place] [address]- [place] Allergies, Adverse Reactions, Alerts No Known [...] tablet, 3 Refills, Maintenance, 06/30/23 10:54:00 EDT, [facility][id number], 186, cm, 06/21/23 15:46:00 EDT, Height, 102, kg, 06/21/23 15:46:00 EDT, Dry Weight Start Date: 06/30/23 Status: Ordered carvedilol 12.5 mg oral tablet 1, tablet, By Mouth, 2 times a day, # 180 tablet, Refills 3, Maintenance, 02/10/23 15:08:00 EST, Route to Pharmacy Electronically, [facility], 178, cm, 02/03/23 11:28:00 EST, Height, 99.3, [...] 11/10/22 14:37:00 EDT, Route to Pharmacy Electronically, [facility], 178, cm, 10/15/22 8:07:00 EDT, Height, 99.3, kg, 08/22/22 14:01:00 EDT, Dry Weight Start Date: 11/10/22 Status: Ordered dorzolamide-timolol 2.23%-0.68% ophthalmic solution 1 drops, Eye, Right, 2 times a day Start Date: 11/19/21 Status: Ordered duloxetine 30 mg oral enteric coated capsule 1 capsule = 30 mg, By Mouth, Daily, start taking from 11/28/21, # 30 capsule, 0 Refills, Maintenance, 11/28/21 9:00:00 EDT, [facility], Partial fill upon patient request if the prescription is for a schedule II opioid drug., 187, cm, 10/0... Start Date: 11/28/21 Status: Ordered Eliquis 2.5 mg oral tablet 1 tablet = 2.5 mg, By Mouth, 2 times a day, # 60 tablet, 0 Refills, Maintenance, 08/09/23 8:46:00 EDT, Tablet, [facility], Partial fill upon patient request if the prescription is for aschedule II opioid drug., 185, cm, 08/09/23 6:22:00... Start Date: 08/09/23 Stop Date: 09/08/23 Status: Ordered furosemide 40 mg oral tablet See Instructions, 1 TABLET BY MOUTH EVERY TUESDAY, TUESDAY AND TUESDAY, # 39 tablet, Refills 1, Maintenance, 01/24/23 7:47:00 EST, Instructions Replace Required Details, Route to Pharmacy Electronically, [facility] 611[facility], 178, cm, 10/15/22 8:07:00 EDT,... Start Date: 01/24/23 Status: Ordered gabapentin 300 mg oral capsule 900 mg, 3, capsule, By Mouth, 2 times a day, # 180 capsule, Refills 5, Tot. Refills 5, Maintenance,10/15/22 8:33:00 EDT, Route to Pharmacy Electronically, [facility]/pharmacy #[id number], 178, cm, 10/15/22 8:07:00 EDT, [...] Refills, Maintenance, 05/29/21 14:41:00 EDT, Tablet, [facility]/pharmacy #[id number], 186, cm, 05/29/21 14:1... Start [...] Refills, Maintenance, 07/21/23 11:34:00 EDT, [facility], 186, cm, 06/21/23 15:46:00 EDT, Height, 102, [...] 11/24/21 11:13:00 EDT, Route to Pharmacy Electronically, [facility], Partial fill upon patient [...] Name: Nova Soto RN Position: [facility] ED RN W/OE and Tasks Member Role: Primary Care Nurse Name: Larissa Griggs MD Position: [facility] Physician - Endocrinology Member Role: PCP Address: Address: [address] [place] [address] [facility] [address]- Name: Zara Gongora Position: [facility] Outreach Member Role: Lifetime Consulting Physician Name: China Gomez Position: [facility] RN Member Role: Primary Care Nurse Name: Arpit Davis RN Position: [facility] ED RN W/OE and Tasks Member Role: Primary Care Nurse Name: Gala Schwartz RN Position: [facility] RN Member Role: Primary Care Nurse Name: Marc Sidhu DO Position: [facility] Renal MD Member Role: Lifetime Consulting Physician Address: Address: [address] [place], [place] [address] [place] [address]- Name: Meseret Rosario RN Position: [facility] RN Member Role: Primary Care Nurse Name: Lonnie Rosario RN Position: [facility] RN Member Role: Primary Care Nurse Name: Kirby Zavala RN Position: [facility] RN Member Role: Primary Care Nurse Name: Jason Anand RN Position: S RN Member Role: Primary Care Nurse Name: Jannette Boyer RN Position: [facility] AMB Nurse Member Role: Primary Care Nurse Name: Toby Shafer RN Position: [facility] RN Member Role: Primary Care Nurse Name: Lesa Oneill RN Position: S RN Member Role: Primary Care Nurse Name: Sarina Del Rio RN Position: [facility] Onco RN Member Role: Primary Care Nurse Care Team Related Persons Name: TRINIDAD CRUMP Name: ELICIA BRONSON Address: [address] [place] [address]
--- OUTSIDE RECORDS SUMMARY | 2024-01-13 12:05 | XMS_ITS | Continuity of Care Document ---
Author Organization [facility] Address [address] [place] [address]- Care Team Providers Care Disease Education Specialist Name Role Phone Eve Warren MD, Larissa Medina Primary Care Physic sophia Encounter [facility] Date(s): 06/15/22 - 06/22/[address] [address]- Attending Physician: Gertrude SOUZA, Jesús Villareal Allergies, [...] tablet, 3 Refills, Maintenance, 11/03/21 16:31:00 EDT, [facility] 123[facility], 186, cm, 10/23/21 14:57:00 EDT, Height, 88.1, [...] 12/17/21 15:20:00 EDT, Route to Pharmacy Electronically, [facility]/pharmacy #[id number], Partial fill upon patient [...] capsule, 0 Refills, Maintenance, 11/28/21 9:00:00 EDT, [facility] 3, Partial fill upon patient request [...] Maintenance,02/10/22 15:57:00 EST, [id number] Partial fill upon patient request if [...] Refills, Maintenance, 05/29/21 14:41:00 EDT, Tablet, [facility]/pharmacy #[id number], 186, cm, 05/29/21 14:1... Start Date: [...] 11/24/21 11:13:00 EDT, Route to Pharmacy Electronically, [facility], Partial fill upon patient [...] Team Personnel Name: Christiano Hernandez RN Position: [facility] RN Member Role: Primary Care Nurse Name: Nova Soto RN Position: [facility] ED RN W/OE and Tasks Member Role: Primary Care Nurse Name: Larissa Griggs MD Position: [facility] Physician (General Medicine) Member Role: PCP Address: Address: [address] [place] [address] [facility] [address] Name: Zara Gongora Position: [facility] Outreach Member Role: Lifetime Consulting Physician Name: China Gomez Position: [facility] RN Member Role: Primary Care Nurse Name: Arpit Davis RN Position: [facility] ED RN W/OE and Tasks Member Role: Primary Care Nurse Name: Gala Schwartz RN Position: [facility] RN Member Role: Primary Care Nurse Name: Marc Sidhu DO Position: [facility] Renal MD Member Role: Lifetime Consulting Physician Address: Address: [address] [place] [address] [address] [facility] [place], [place] [address] Name: Abraham MURRELL, Lonnie Perry Position: [facility] RN Member Role: Primary Care Nurse Name: Jason Anand RN Position: [facility] RN Member Role: Primary Care Nurse Name: Sarina Del Rio RN Position: [facility] Onco RN Member Role: Primary Care Nurse Name: Emmie Vera Position: [facility] RN Member Role: Primary Care Nurse Care Team Related Persons Name: TRINIDAD CRUMP Name: ELICIA BRONSON Address: [address] [place] [address]
--- OUTSIDE RECORDS SUMMARY | 2024-01-13 12:05 | XMS_ITS | Continuity of Care Document ---
Author Organization [facility] Address [address] [place] [phone]- Care Team Providers Care Checkroom Chief Name Role Phone Eve Warren MD, Larissa Medina Primary Care Physic sophia [place] [facility] [place] 02/05/22 - 03/07/22 [facility] [address] [place] [phone]- [place] Allergies, Adverse Reactions, Alerts No Known [...] 3 Refills, Maintenance, 12/17/21 15:20:00 EDT, Tablet, [facility]/pharmacy #[id number], Partial fill upon patient request if [...] tablet, 3 Refills, Maintenance, 11/03/21 16:31:00 EDT, [facility] 22130, 186, cm, 10/23/21 14:57:00 EDT, Height, 88.1, [...] 12/17/21 15:20:00 EDT, Route to Pharmacy Electronically, [facility]/pharmacy #[id number], Partial fill upon patient request if [...] capsule, 0 Refills, Maintenance, 11/28/21 9:00:00 EDT, [facility], Partial fill upon patient request if the prescription is for a schedule II opioid drug., 187, cm, 10/0... Start Date: 11/28/21 Status: Ordered furosemide 40 mg oral tablet 1, tablet, By Mouth, Daily, PRN, LEG SWELLING., # 30 tablet, Refills 3, Maintenance, NEEDED, 02/16/22 7:39:00 EST, Route to Pharmacy Electronically, [facility]607, 187, cm, 01/26/22 11:24:00 EST, Height, 91, kg, 11/20/21 17:55:00 EDT, Dry Weight Start Date: 02/16/22 Status: Ordered gabapentin 300 mg oral capsule 600 mg, 2, capsule, By Mouth, 2 times a day, # 120 capsule, Refills 5, Tot. Refills 5, Maintenance,02/10/22 15:57:00 EST, [id number] Partial fill upon patient request [...] 1 Refills, Maintenance, 05/29/21 14:41:00 EDT, Tablet, [facility]/pharmacy #1070, 186, cm, 05/29/21 14:1... Start Date: [...] capsule, 3 Refills, Maintenance, 02/05/22 15:19:00 EST, [facility]/pharmacy #[id number], 187, cm, 01/26/22 11:24:00 EST, Height, [...] 11/24/21 11:13:00 EDT, Route to Pharmacy Electronically, [facility], Partial fill upon patient [...] Medicine) Member Role: PCP Address: Address: [address] [place] [address] [place] [address]- Name: Zara Gonogra Position: [facility] Outreach Member Role: Lifetime Consulting Physician Name: China Gomez Position: [facility] RN Member Role: Primary Care Nurse Name: Arpit Davis RN Position: [facility] ED RN W/OE and Tasks Member Role: Primary Care Nurse Name: Gala Schwartz RN Position: [facility] RN Member Role: Primary Care Nurse Name: Marc Sidhu DO Position: [facility] Renal MD Member Role: Lifetime Consulting Physician Address: Address: [address] [place] [address] [address] [facility] [place] [address]- Name: Jannette Boyer RN Position: [facility] RN Member Role: Primary Care Nurse Name: Quang MURRELL, Sarina Gandara Position: [facility] Onco RN Member Role: Primary Care Nurse Care Team Related Persons Name: TRINIDAD CRUMP Name: ELICIA BRONSON Address: home [address] [place] [address]
--- OUTSIDE RECORDS SUMMARY | 2024-01-13 12:05 | XMS_ITS | Continuity of Care Document ---
Author Organization [facility] Address [address] [place] [address]- Care Team Providers Care Acute Care Nurse Name Role Phone Eve Warren MD, Larissa Medina Primary Care Physic sophia [place] [facility](s[place] 03/30/22 - 06/03/[address] [address]- Attending Physician: Gertrude SOUZA, Jesús Villareal Allergies, [...] tablet, 3 Refills, Maintenance, 11/03/21 16:31:00 EDT, [facility] 02315, 186, cm, 10/23/21 14:57:00 EDT, Height, 88.1, [...] 12/17/21 15:20:00 EDT, Route to Pharmacy Electronically, [facility]/pharmacy #[id number], Partial fill [...] Maintenance, 11/28/21 9:00:00 EDT, [facility], Partial fill [...] Maintenance,02/10/22 15:57:00 EST, [id number] Partial fill upon patient request [...] 05/29/21 14:41:00 EDT, Tablet[id number] 186, cm, 05/29/21 14:1... Start [...] MD Position: [facility] Physician (General Medicine) Member Role: PCP Address: Address: [address] [place] [address] [facility] [address] Name: Zara Gongora Position: [facility] Outreach Member Role: Lifetime Consulting Physician Name: Cora Johns RN Position: [facility] RN Member Role: Primary Care Nurse Name: China Gomez [facility] [...] Role: Lifetime Consulting Physician Address: Address: [address] [place] [address] [address] [facility] [place], [place] [address] Name: Abraham MURRELL, Lonnie Perry Position: S RN Member Role: Primary Care Nurse Name: Jason Anand RN Position: [facility] RN Member Role: Primary Care Nurse Name: Sarina Del Rio RN Position: [facility] Onco RN Member Role: Primary Care Nurse Name: Emmie Vera Position: [facility] RN Member Role: Primary Care Nurse Care Team Related Persons Name: TRINIDAD CRUMP Name: ELICIA BRONSON Address: [place] [address]
--- OUTSIDE RECORDS SUMMARY | 2024-01-13 12:05 | XMS_ITS | Continuity of Care Document ---
Author Organization [facility] Address [address] [place] [address]- Care Team Providers Care Post Acute Care Nurse Name Role Phone Larissa Griggs MD Primary Care Physic sophia Encounter [facility] Date(s): 10/23/21 - 10/30/21 [facility] [address] [place] [phone]- Encounter Diagnosis Coronary artery disease(Discharge Diagnosis) - 10/23/21 Hypertension(Discharge Diagnosis) - 10/23/21 Chronic kidney disease, stage 3(Discharge Diagnosis) - 10/23/21 Attending Physician: Isidoro Marx MD Referring Physician: [...] 01/01/18 Status: Ordered aspirin 81 mg oral delayed release tablet 162 mg, 2, tablet, By Mouth, Daily, # 30 tablet, Refills 3, Maintenance, 10/23/21 15:22:00 EDT, Partial [...] 07/09/21 11:14:00 EDT, Route to Pharmacy Electronically, [facility]/pharmacy #[id number], Partial fill upon patient request if [...] 06/23/21 12:42:00 EDT, Route to Pharmacy Electronically, [facility]/pharmacy #0150, 186, cm, 06/18/21 14:24:00 EDT, Height Start [...] Maintenance, 05/29/21 14:41:00 EDT, Tablet, [facility]/pharmacy #[id number], 186, cm, 05/29/21 14:1... Start Date: 05/29/21 [...] opioid drug. Start Date: 11/07/20 Status: Ordered Testosterone Enanthate 200 mg/mL intramuscular [...] Service Informant Coronary artery disease Discharge Diagnosis 10/23/21 Hypertension Discharge Diagnosis 10/23/21 Chronic kidney disease, stage 3 Discharge Diagnosis 10/23/21 Vital Signs Most recent to oldest [Reference Range]: 1 2 Height 186 cm (10/23/21 2:57 PM) 186 cm (10/23/21 2:54 PM) Weight 87.3 kg (10/23/21 2:54 PM) Pulse Rate [55-90 bpm] 73 bpm (10/23/21 2:54 PM) Body Mass Index [18.5-24.99] 25.23 *H* (10/23/21 2:54 PM) Blood Pressure [90-138/55-84 mm Hg] 169/ 78mm Hg *H* (10/23/21 2:57 PM) 172/84mm Hg *H* (10/23/21 2:54 PM) Blood pressure sites Arm, right (10/23/21 2:57 PM) Arm, left (10/23/21 2:54 PM) Social History Social History Type Response Smoking Status Never smoker; Tobacc o user in household: No entered on: 09/03/14 Sex Care Team Personnel Name: Eve Warren MD, Larissa Medina Address: [address] [place] [address] [facility] [address]
--- OUTSIDE RECORDS SUMMARY | 2024-01-13 12:05 | XMS_ITS | Continuity of Care Document ---
Author Organization [facility] Address [address] [place] [address]- Care Team Providers Care Case Filler Name Role Phone Eve Warren MD, Larissa Medina Primary Care Physic sophia Encounter [facility] [place] Date(s): 05/25/19 - 06/01/[address] [address]- [facility] Attending Physician: Yasmin Salcido MD Admitting Physician: Yasmin Salcido MD Referring Physician: Larissa Griggs MD Allergies, [...] 01/22/19 9:48:15 EST, Route to Pharmacy Electronically, [id number], [facility]/pharmacy #[id number] Start Date: 01/22/19 Stop Date: 01/17/20 Status: Ordered colchicine 0.6 mg oral tablet 0.6 mg, 1, tablet, By Mouth, Daily, Refills 0, Maintenance, 01/01/18 18:45:03 EST Start Date: 01/01/18 Status: Ordered Coreg 6.25 mg oral tablet 6.25 mg, 1, tablet, By Mouth, 2 times a day, # 60 tablet, Refills 11, Tot. Refills 11, Maintenance,02/01/19 9:26:07 EST, Route to Pharmacy Electronically, [id number], [facility]/pharmacy #[id number], 186, cm, 01/30/19 9:20:58 EST, Height... [...] 01/22/19 9:48:35 EST, Route to Pharmacy Electronically, [id number], [facility]/pharmacy #[id number] Start Date: 01/22/19 Stop Date: 01/17/20 [...]
--- OUTSIDE RECORDS SUMMARY | 2024-01-13 12:05 | XMS_ITS | Continuity of Care Document ---
Author Organization [facility] Address [address] [facility], 3r d Floor, [address] [place] [address]- Care Team Providers Care Cake Mixer Name Role Phone Eve Warren MD, Larissa Medina Primary Care Physic sophia Encounter [facility] [place] Date(s): 11/25/21 - 12/25/21 [facility] [address], 3rd Floor, [address] [place] [address]- Allergies, Adverse Reactions, Alerts No Known Allergies [...] Maintenance, 12/17/21 15:20:00 EDT, Tablet, [facility]/pharmacy #[id number], Partial fill upon patient [...] Refills, Maintenance, 11/03/21 16:31:00 EDT, [facility] STORE [id number], 186, cm, 10/23/21 14:57:00 EDT, Height, 88.1, kg, 07/01/21 14:48:00 EDT, Dry Weight Start Date: 11/03/21 Status: Ordered Coreg 12.5 mg oral tablet 12.5 mg, 1, tablet, By Mouth, 2 times a day, # 180 tablet, Refills 3, Tot. Refills 3, Maintenance, 12/17/21 15:20:00 EDT, Route to Pharmacy Electronically, [facility]/pharmacy #[id number], Partial fill upon patient [...] capsule, 0 Refills, Maintenance, 11/28/21 9:00:00 EDT, [facility], Partial fill upon patient [...] Maintenance, 05/29/21 14:41:00 EDT, Tablet, [facility]/pharmacy #[id number], 186, cm, 05/29/21 14:1... [...] 11/24/21 11:13:00 EDT, Route to Pharmacy Electronically, [facility], Partial fill upon patient [...] Eve Warren MD, Larissa Medina Address: Address: [address] [place] [address] [facility], [place] [address]
--- OUTSIDE RECORDS SUMMARY | 2024-01-13 12:05 | XMS_ITS | Continuity of Care Document ---
Author Organization [facility] ter Address [address] [place] [id number]- Care Team Providers Care Angle Shear Set Up Operator Name Role Phone Eve Warren MD, Larissa Medina Primary Care Physic sophia [place] [facility] [place] Date(s): 11/22/21 - 11/24/[address] [id number] Discharge Disposition: A-D/C Home Attending Physician: Kelvin CABEZAS, Lee Ann Admitting Physician: Arvind CABEZAS, Trevonedilma Referring Physician: Not on Staff, Referring MD [...] = 5 mg, By Mouth, Daily, # 30 tablet, 0 Refills, Maintenance, 11/24/21 11:11:00 EDT, Tablet, [facility], Partial fill upon patient request if the prescription is for a scheduleII opioid drug., 187, cm, 11/24/21 7:18:00 EDT, Hei... Start Date: 11/24/21 Stop Date: 12/24/21 Status: Ordered amLODIPine 5 mg oral tablet 5 mg, Tablet, By Mouth, 11/24/21 9:00:00 EDT Start Date: 11/24/21 Stop Date: 11/24/21 Status: Completed aspirin 81 mg oral delayed release tablet [...] Refills, Maintenance, 11/03/21 16:31:00 EDT, [facility] STORE [id number], 186, cm, 10/23/21 14:57:00 EDT, Height, 88.1, kg, 07/01/21 14:48:00 EDT, Dry Weight Start Date: 11/03/21 Status: Ordered Coreg 12.5 mg oral tablet 12.5 mg, 1, tablet, By Mouth, 2 times a day, # 60 tablet, Refills 0, Tot. Refills 0, Maintenance, 11/24/21 11:07:00 EDT, Route to Pharmacy Electronically, [facility], Partial fill upon patient request if the prescription is for a schedul... Start Date: 11/24/21 Status: Ordered Coreg 12.5 mg oral tablet 12.5 mg, Tablet, By Mouth, 11/24/21 9:00:00 EDT Start Date: 11/24/21 Stop Date: 11/24/21 Status: Completed dorzolamide-timolol 2.23%-0.68% ophthalmic solution 1 drops, Eye, Right, 2 times a day Start Date: 11/19/21 Status: Ordered duloxetine 30 mg oral enteric coated capsule 1 capsule = 30 mg, By Mouth, Daily, start taking from 11/28/21, # 30 capsule, 0 Refills, Maintenance, 11/28/21 9:00:00 EDT, [facility], Partial fill upon patient [...] opioid drug. Start Date: 11/23/21 Status: Ordered gabapentin 300 mg oral capsule 600 mg, Capsule, By Mouth, 11/24/21 9:00:00 EDT Start Date: 11/24/21 Stop Date: 11/24/21 Status: Completed Glucosamine Chondroitin 1 tablet, By Mouth, Daily, [...] Maintenance, 05/29/21 14:41:00 EDT, Tablet, [facility]/pharmacy #[id number], 186, cm, 05/29/21 14:1... Start Date: 05/29/21 Status: Ordered oxyCODONE 5 mg oral tablet 7.5 mg, 1.5, tablet, By Mouth, 3 times a day, Refills 0, Tot. Refills 0 Start Date: 11/19/21 Status: Ordered oxyCODONE 5 mg oral tablet 7.5 mg, Tablet, By Mouth, Every 8 hours, PRN for Pain , Severe, Routine, 11/19/21 14:23:00 EDT Start Date: 11/19/21 Stop Date: 11/24/21 Status: Discontinued rocío stockings 15 to 20 rocío stockings [...] 11/24/21 11:13:00 EDT, Route to Pharmacy Electronically, [facility], Partial fill upon patient [...] Exam Date Time Procedure Performing Provider Status 11/19/21 3:43 AM Chest 2 Views Frontal and Lat Jie Muniz; Auth (Verified) Notes: (Chest 2 Views Frontal and Lat) Reason For Exam: Chest Pain;Other: RESULT: Chest 2 Views Frontal and Lat Chest 2 Views Frontal and Lat HX OF PRESENT ILLNESS: covid + at home; Reason: Chest pain COMPARISON: 07/04/2018 FINDINGS: LINES AND TUBES: None. LUNGS AND PLEURA: Clear lungs. Normal pulmonary vascularity. No pleural effusion. No pneumothorax. HEART, MEDIASTINUM AND KAREN: Heart is normal in size. Normal mediastinal and hilar contour. BONES AND SOFT TISSUES: No acute abnormality. No significant change in expansile lesion in the left posterior sixth rib. Suture anchors in the right shoulder. IMPRESSION: No evidence of acute abnormality. WSN: [id number] Ordering Physician: Rossy Gonzales Dictated By: Vernon Lowe MD Dictated Date/Time: 11/19/21 7:55 am Reviewed By: Vernon Lowe MD Signed By: Vernon Lowe MD Signed Date/Time: 11/19/21 7:55 am Transcribed By: MY Transcribed Date/Time: 11/19/21 7:53 am Vital Signs Most recent to oldest [Reference Range]: 1 2 3 Height 187 cm (11/24/21 7:18 AM) 187 cm (11/24/21 4:13 AM) 187 cm (11/23/21 7:42 PM) Weight 91 kg (11/20/21 3:00 PM) 91 kg (11/19/21 11:37 AM) 91 kg (11/19/21 4:54 AM) Oxygen Saturation [94-100 %] 100 % (11/24/21:18 AM) 96 % (11/24/21 4:13 AM) 98 % (11/23/21 7:42 PM) Pulse Rate [55-90 bpm] 74 bpm (11/24/21 9:02 AM) 78 bpm (11/24/21 8:30 AM) 74 bpm (11/24/21 7:18 AM) Body Mass Index [18.5-24.99 kg/m2] 26.02 kg/m2 *H* (11/20/21 3:00 PM) 26.02 kg/m2 *H* (11/19/21 11:37 AM) 26.02 kg/m2 *H* (11/19/21 4:54 AM) Blood Pressure [90-138/55-84 mm Hg] 154/76mm Hg *H* (11/24/21 10:43 AM) 154/76mm Hg *H* (11/24/21 9:03 AM) 154/76mm Hg *H* (11/24/21 9:02 AM) Respiratory Rate [16-30 br/min] 18 br/min (11/24/21 10:43 AM) 18 br/min (11/24/21 9:04 AM) 18 br/min (11/24/21 9:02 AM) Temperature [96.8-100.4 DegF] 98.5 DegF (11/24/21 7:18 AM) 98.3 DegF (11/24/21 4:13 AM) 97.3 DegF (11/23/21 7:42 PM) Liters per Minute 0 L/min (11/19/21 11:37 AM) Mode of Delivery (Oxygen) Room air (11/24/21 7:18 AM) Room air (11/24/21 4:13 AM) Room air (11/23/21 7:42 PM) Blood pressure sites Arm, left (11/24/21 7:18 AM) Arm, right (11/24/21 4:13 AM) Arm, left (11/23/21 7:42 PM) Temperature Route Oral (11/24/21 7:18 AM) Oral (11/24/21 4:13 AM) Oral (11/23/21 7:42 PM) Dry Weight 91 kg (11/20/21 3:00 PM) 91 kg (11/19/21 11:37 AM) 91 kg (11/19/21 4:54 AM) Weight Obtained Via Patient/family state d (11/19/21 12:46 AM) Dry Weight Obtained Via Patient/family s tated (11/19/21 12:46 AM) Social History Social History Type Response Smoking Status Never smoker; Tobacc o user in household: No entered on: 09/03/14 Sex Note * BHSPowerscribe , CIS S: TRANSCRIBE Vernon Lowe MD S: VERIFY Event Display: Result: Authored Date: [id number] Chest 2 Views Frontal and Lat HX OF PRESENT ILLNESS: covid + at home; Reason: Chest pain COMPARISON: 07/04/2018 FINDINGS: LINES AND TUBES: None. LUNGS AND PLEURA: Clear lungs. Normal pulmonary vascularity. No pleural effusion. No pneumothorax. HEART, MEDIASTINUM AND KAREN: Heart is normal in size. Normal mediastinal and hilar contour. BONES AND SOFT TISSUES: No acute abnormality. No significant change in expansile lesion in the left posterior sixth rib. Suture anchors in the right shoulder. IMPRESSION: No evidence of acute abnormality. WSN: [id number] Ordering Physician: Rossy Gonzales Dictated By: Vernon Lowe MD Dictated Date/Time: 11/19/21 7:55 am Reviewed By: Vernon Lowe MD Signed By: Vernon Lowe MD Signed Date/Time: 11/19/21 7:55 am Transcribed By: MY Transcribed Date/Time: 11/19/21 7:53 am Patient Care team information Personnel Name: Larissa Griggs MD Address: Address: [address] [place] [address] [facility] [address]
--- OUTSIDE RECORDS SUMMARY | 2024-01-13 12:05 | XMS_ITS | Continuity of Care Document ---
Author Organization [facility] Address [address] [place] [address]- Care Team Providers Care Machinist 2Nd Shift Name Role Phone Eve Warren MD, Larissa Medina Primary Care Physic sophia [place] [facility] [place] Date(s): 02/10/23 - 03/12/23 [facility] [address] [place] [address]- [place] Allergies, Adverse Reactions, Alerts No Known [...] Refills, Maintenance, 11/22/22 7:50:00 EDT, [id number], 178, cm, 10/15/22 8:07:00 EDT, Height, 99.3, kg, 08/22/22 14:01:00 EDT, Dry Weight Start Date: 11/22/22 Status: Ordered carvedilol 12.5 mg oral tablet 1, tablet, By Mouth, 2 times a day, # 180 tablet, Refills 3, Maintenance, 02/10/23 15:08:00 EST, Route to Pharmacy Electronically, [facility] 28149, 178, cm, 02/03/23 11:28:00 EST, Height, 99.3, [...] 11/10/22 14:37:00 EDT, Route to Pharmacy Electronically, [facility] ST[facility] 75493, 178, cm, 10/15/22 8:07:00 EDT, Height, 99.3, kg, 08/22/22 14:01:00 EDT, Dry Weight Start Date: 11/10/22 Status: Ordered dorzolamide-timolol 2.23%-0.68% ophthalmic solution 1 drops, Eye, Right, 2 times a day Start Date: 11/19/21 Status: Ordered duloxetine 30 mg oral enteric coated capsule 1 capsule = 30 mg, By Mouth, Daily, start taking from 11/28/21, # 30 capsule, 0 Refills, Maintenance, 11/28/21 9:00:00 EDT, [facility], Partial fill upon patient request if the prescription is for a schedule II opioid drug., 187, cm, 10/0... Start Date: 11/28/21 Status: Ordered furosemide 40 mg oral tablet See Instructions, 1 TABLET BY MOUTH EVERY TUESDAY, TUESDAY AND TUESDAY, # 39 tablet, Refills 1, Maintenance, 01/24/23 7:47:00 EST, Instructions Replace Required Details, Route to Pharmacy Electronically, [facility] STORE 64265, 178, cm, 10/15/22 8:07:00 EDT,... Start Date: 01/24/23 Status: Ordered gabapentin 300 mg oral capsule 900 mg, 3, capsule, By Mouth, 2 times a day, # 180 capsule, Refills 5, Tot. Refills 5, Maintenance,10/15/22 8:33:00 EDT, [id number], cm, 10/15/22 8:07:00 EDT, Height, [...] 1 Refills, Maintenance, 05/29/21 14:41:00 EDT, Tablet, [facility]/pharmacy #[id number], 186, cm, 05/29/21 [...] 11/24/21 11:13:00 EDT, Route to Pharmacy Electronically, [facility], Partial fill upon patient [...] Care Nurse Name: Nova Soto RN Position: [facility] ED RN W/OE and Tasks Member Role: Primary Care Nurse Name: Eve Warren MD, Larissa Medina Position: [facility] Physician - Endocrinology Member Role: PCP Address: Address: [address] [place] [address] [place] [address]- Name: Zara Gongora Position: S Outreach Member Role: Lifetime Consulting Physician Name: China Gomez Position: [facility] RN Member Role: Primary Care Nurse Name: Arpit Davis RN Position: [facility] ED RN W/OE and Tasks Member Role: Primary Care Nurse Name: Gala Schwartz RN Position: [facility] RN Member Role: Primary Care Nurse Name: Marc Sidhu DO Position: [facility] Renal MD Member Role: Lifetime Consulting Physician Address: Address: [address] [place], [place] [address] [place] [address]- Name: Lonnie Rosario RN Position: [facility] RN Member Role: Primary Care Nurse Name: Jason Anand RN Position: [facility] RN Member Role: Primary Care Nurse Name: Jannette Boyer RN Position: [facility] SN RN Member Role: Primary Care Nurse Name: Sarina Del Rio RN Position: [facility] Onco RN Member Role: Primary Care Nurse Care Team Related Persons Name: TRINIDAD CRUMP Name: ELICIA BRONSON Address: home [address] [place] [address]
--- OUTSIDE RECORDS SUMMARY | 2024-01-13 12:05 | XMS_ITS | Continuity of Care Document ---
Author Organization [facility] Address [address] [place] [address] [place] [address]- Care Team Providers Care Termite Control Representative Name Role Phone Eve Warren MD, Larissa Medina Primary Care Physic sophia En[place] [facility] [place](s): 05/25/23 - 06/01/23 [facility] [address] [address]- Attending Physician: Janell Kovacs MD Admitting Physician: [...] Refills, Maintenance, 11/22/22 7:50:00 EDT, [facility], 178, cm, 10/15/22 8:07:00 EDT, Height, 99.3, kg, 08/22/22 14:01:00 EDT, Dry Weight Start Date: 11/22/22 Status: Ordered carvedilol 12.5 mg oral tablet 1, tablet, By Mouth, 2 times a day, # 180 tablet, Refills 3, Maintenance, 02/10/23 15:08:00 EST, Route to Pharmacy Electronically, [facility] 99585, 178, cm, 02/03/23 11:28:00 EST, Height, 99.3, [...] 11/10/22 14:37:00 EDT, Route to Pharmacy Electronically, [facility] 22722, 178, cm, 10/15/22 8:07:00 EDT, Height, 99.3, [...] Refills, Maintenance, 11/28/21 9:00:00 EDT, [facility], Partial fill upon patient request if the prescription is for a schedule II opioid drug., 187, cm, 100... Start Date: 11/28/21 Status: Ordered furosemide 40 mg oral tablet See Instructions, 1 TABLET BY MOUTH EVERY TUESDAY, TUESDAY AND TUESDAY, # 39 tablet, Refills 1, Maintenance, 01/24/23 7:47:00 EST, Instructions Replace Required Details, Route to Pharmacy Electronically, [facility] 96789, 178, cm, 10/15/22 8:07:00 EDT,... Start Date: 01/24/23 Status: Ordered gabapentin 300 mg oral capsule 900 mg, 3, capsule, By Mouth, 2 times a day, # 180 capsule, Refills 5, Tot. Refills 5, Maintenance,10/15/22 8:33:00 EDT, Route to Pharmacy Electronically, [facility]/pharmacy #[id number], 178, cm, 10/15/22 8:07:00 EDT, Height, 99.3, kg, 08/22/22 14:01:00 EDT, Dry... Start Date: 10/15/22 Stop Date: 04/13/23 Status: Ordered gabapentin 300 mg oral capsule 900 mg, 3, capsule, By Mouth, 2 times a day, # 180 capsule, Refills 5, Tot. Refills 5, Maintenance,05/19/23 12:29:00 EDT, Route to Pharmacy Electronically, [facility] #[id number], 186, cm, 04/20/23 21:24:00 EST, Height, 95.5, kg, 04/20/23 21:24:... Start Date: 05/19/23 Stop Date: 11/15/23 Status: Ordered latanoprost 0.005% ophthalmic solution 1 drops, Eye, Right, Daily at bedtime, 0 Refills, Maintenance, 01/01/18 18:46:39 EST Start Date: 01/01/18 Status: Ordered lidocaine 5% topical film 2 patch, Topically, Daily, remove patches after 12 hours, # 30 patch, 0 Refills, Maintenance, 04/20/23 19:59:00 EST, Film, [facility]/pharmacy #0750, Partial fill upon patient request if the prescription isfor a schedule II opioid drug., 2 patch Topically D... Start Date: 04/20/23 Status: Ordered nitroglycerin 0.4 mg sublingual tablet 1 tablet = 0.4 mg, Sublingual, Every 5 minutes, PRN for chest pain, not to exceed 3 doses/15 min--if pain persists, seek medical attention, # 100 tablet, 1 Refills, Maintenance, 05/29/21 14:41:00 EDT, Tablet, [facility]/pharmacy #[id number], 186, cm, 05/29/21 14:1... Start Date: 05/29/21 Status: Ordered oxyCODONE 5 mg oral capsule 1 capsule = 5 mg, By Mouth, Every 6 hours, PRN for pain, # 28 capsule, 0 Refills, Maintenance, 04/20/23 19:53:00 EST, Capsule, [facility]/pharmacy #0750, Partial fill upon patient request if [...] Refills, Maintenance, 05/18/23 15:11:00 EDT, ER Tablet, [facility]/pharmacy #[id number], Partial fill upon patient request if the prescription is for a schedule II opioid drug., 186, c... Start Date: 05/18/23 Status: Ordered Potassium Chloride (Eqv-K-Tab) 20 mEq oral tablet, extended release See Instructions, 2 TABLET BY MOUTH EVERY TUESDAY, TUESDAY AND TUESDAY, # 26 tablet, 0 Refills, Maintenance, 05/30/23 13:43:00 EDT, [facility] STORE 62552, 186, cm, 05/25/23 14:56:00 EDT, Height, 95.5, [...] EDT, Route to Pharmacy Electronically, [facility], Partial fill upon patient [...] oldest [Reference Range]: 1 Height 186 cm (05/25/23 2:56 PM) Weight 93.9 kg (05/25/23 2:56 PM) Oxygen Saturation [94-100 %] 97 % (05/25/23 2:56 PM) Pulse Rate [55-90 bpm] 62 bpm (05/25/23 2:56 PM) Body Mass Index [18.5-24.99 kg/m2] 27.14 kg/m2 *H* (05/25/23 2:56 PM) Blood Pressure [90-138/55-84 mm Hg] 158/ 79mm Hg *H* (05/25/23 2:56 PM) Mode of Delivery (Oxygen) Room air (05/25/23 2:56 PM) Blood pressure sites Arm, left (05/25/23 2:56 PM) Weight Obtained Via Bed scale (05/25/23 2:56 PM) Social History Social History Type Response Smoking Status Never smoker; Tobacc o user in household: No entered on: 09/03/14 Sex Patient Care team information Care Team Personnel Name: Christiano Hernandez RN Position: [facility] RN Member Role: Primary Care Nurse Name: Nova Soto RN Position: [facility] ED RN W/OE and Tasks Member Role: Primary Care Nurse Name: Larissa Griggs MD Position: [facility] Physician - Endocrinology Member Role: PCP Address: Address: [address] [place] [address] [facility] [address] Name: Zara Gongora Position: [facility] Outreach Member Role: Lifetime Consulting Physician Name: China Gomez Position: [facility] RN Member Role: Primary Care Nurse Name: Arpit Davis RN Position: [facility] ED RN W/OE and Tasks Member Role: Primary Care Nurse Name: Gala Schwartz RN Position: [facility] RN Member Role: Primary Care Nurse Name: Marc Sidhu DO Position: [facility] Renal MD Member Role: Lifetime Consulting Physician Address: Address: [address] [place], [place] [address] [place] [place] [address] Name: Lonnie Rosario RN Position: [facility] RN Member Role: Primary Care Nurse Name: Jason Anand RN Position: [facility] RN Member Role: Primary Care Nurse Name: Jannette Boyer RN Position: [facility] SN RN Member Role: Primary Care Nurse Name: Toby Shafer RN Position: [facility] RN Member Role: Primary Care Nurse Name: Lesa Oneill RN Position: [facility] RN Member Role: Primary Care Nurse Name: Sarina Del Rio RN Position: [facility] Onco RN Member Role: Primary Care Nurse Care Team Related Persons Name: TRINIDAD CRUMP Name: ELICIA BRONSON Address: home [address] [place] [address]
--- OUTSIDE RECORDS SUMMARY | 2024-01-13 12:05 | XMS_ITS | Continuity of Care Document ---
Author Organization [facility] Address [address] [facility], [address]r d Floor, [address] [place] [address]- Care Team Providers Care Steam And Gas Turbines Assembler Name Role Phone Eve Warren MD, Larissa Medina Primary Care Physic sophia Encounter [facility] Date(s): 01/22/20 - 02/21/20 [facility] [address], [address] Floor, [address] [place] [address]- Allergies, Adverse Reactions, Alerts Substance Reaction Severity [...] Maintenance,01/31/20 10:05:00 EST, Route to Pharmacy Electronically, [facility]/pharmacy #[id number], 186, cm, 10/19/19 15:51:00 EDT, Height, [...] 02/07/20 14:17:00 EST, [id number] Partial [facility] upon [...] 01/15/20 14:41:00 EST, Route to Pharmacy Electronically, [facility]/pharmacy #[id number], 186, cm, 10/19/19 15:51:00 EDT, Height, 97, kg, 06/16/18 9:43:00 EDT, Dry Weight Start Date: 01/15/20 Stop Date: 01/09/21 Status: Ordered loperamide 2 mg oral tablet, chewable 1 tablet = 2 mg, Chew, 2 times a day, PRN for loose stool, # 20 tablet, 0 Refills, Maintenance, 08/16/19 18:31:00 EDT, Chew Tablet, [facility]/pharmacy #[id number], 1 tablet Chew 2 [...] 1 Refills, Maintenance, 07/17/19 11:37:00 EDT, Tablet, [facility]/pharmacy #[id number], 186, cm, 03/02/19 8:12... [...]
--- OUTSIDE RECORDS SUMMARY | 2024-01-13 12:06 | XMS_ITS | Continuity of Care Document ---
Author Organization [facility] Address [address] [place] [address]- Care Team Providers Care Detacker Name Role Phone Eve Warren MD, Larissa Medina Primary Care Physic sophia [place] [facility] [place]/09/23 [facility] [address] [place], [place] [address] Attending Physician: Willa CABEZAS, Vadim Zarate Referring [...] Refills, Maintenance, 12/14/22 7:57:00 EDT, [id number], 178, cm, 10/15/22 8:07:00 EDT, Height, 99.3, [...] tablet, 3 Refills, Maintenance, 11/22/22 7:50:00 EDT, [facility] STORE 79539, 178, cm, 10/15/22 8:07:00 EDT, Height, 99.3, [...] to Pharmacy Electronically, [facility]/pharmacy #[id number], Partial fill upon patient request if the prescription is for a schedule II... Start Date: 12/17/21 Stop Date: 12/12/22 Status: Ordered donepezil 5 mg oral tablet 1, tablet, By Mouth, Daily at bedtime, # 90 tablet, Refills 1, Maintenance, 11/10/22 14:37:00 EDT, Route to Pharmacy Electronically, [facility] STORE 76154, 178, cm, 10/15/22 8:07:00 EDT, Height, 99.3, kg, 08/22/22 14:01:00 EDT, Dry Weight Start Date: 11/10/22 Status: Ordered dorzolamide-timolol 2.23%-0.68% ophthalmic solution 1 drops, Eye, Right, 2 times a day Start Date: 11/19/21 Status: Ordered duloxetine 30 mg oral enteric coated capsule 1 capsule = 30 mg, By Mouth, Daily, start taking from 10/8/22, # 30 capsule, 0 Refills, Maintenance, 11/28/21 9:00:00 EDT, [facility], Partial fill upon patient request if the prescription is for a schedule II opioid drug., 187, cm, 10/0... Start Date: 11/28/21 Status: Ordered furosemide 40 mg oral tablet 40 mg, 1, tablet, By Mouth, Every Tuesday, Tuesday and Tuesday, # 13 tablet, Refills 3, Tot. Refills 3, Maintenance, 09/20/22 16:42:00 EDT, Route to Pharmacy Electronically, [facility]/pharmacy #[id number], Partial fill upon patient request if the prescription is... Start Date: 09/20/22 Status: Ordered gabapentin 300 mg oral capsule 900 mg, 3, capsule, By Mouth, 2 times a day, # 180 capsule, Refills 5, Tot. Refills 5, Maintenance,10/15/22 8:33:00 EDT, Route to Pharmacy Electronically, [facility]/pharmacy #[id number], 178, cm, 10/15/22 8:07:00 EDT, Height, [...] 0 Refills, Soft Stop, 08/22/22 16:30:00 EDT, [facility], Partial fill upon patient [...] 11/24/21 11:13:00 EDT, Route to Pharmacy Electronically, [facility], Partial fill upon patient [...] Team Personnel Name: Christiano Hernandez RN Position: [facility] RN Member Role: Primary Care Nurse Name: Nova Soto RN Position: [facility] ED RN W/OE and Tasks Member Role: Primary Care Nurse Name: Larissa Griggs MD Position: [facility] Physician - Endocrinology Member Role: PCP Address: Address: [address] [place] [address] [facility] [place], [place] [address] Name: Zara Gongora Position: [facility] [...] Member Role: Lifetime Consulting Physician Address: Address: [address] [place], [place] [address] [place] [address]- Name: Lonnie Rosario RN Position: [facility] RN Member Role: Primary Care Nurse Name: Jason Anand RN Position: S RN Member Role: Primary Care Nurse Name: Jannette Boyer RN Position: [facility] SN RN Member Role: Primary Care Nurse Name: Sarina Del Rio RN Position: [facility] Onco RN Member Role: Primary Care Nurse Care Team Related Persons Name: TRINIDAD CRUMP Name: ELICIA BRONSON Address: [place] [address]
--- OUTSIDE RECORDS SUMMARY | 2024-01-13 12:06 | XMS_ITS | Continuity of Care Document ---
Author Organization [facility] Address [address] [place] [address]- Care Team Providers Care Neurology Hospitalist Name Role Phone Eve Warren MD, Larissa Medina Primary Care Physic sophia [place] [facility] [place] 01/20/22 - 02/19/22 [facility] [address] [place] [address] [place] Allergies, Adverse Reactions, Alerts No Known [...] 3 Refills, Maintenance, 12/17/21 15:20:00 EDT, Tablet, [facility]/pharmacy #[id number], Partial fill upon patient request [...] tablet, 3 Refills, Maintenance, 11/03/21 16:31:00 EDT, [facility] STORE 82079, 186, cm, 10/23/21 14:57:00 EDT, Height, 88.1, [...] 12/17/21 15:20:00 EDT, Route to Pharmacy Electronically, [facility]/pharmacy #[id number], Partial fill upon patient request [...] Refills, Maintenance, 11/28/21 9:00:00 EDT, [facility], Partial fill upon patient request if the prescription is for a schedule II opioid drug., 187, cm, 10/0... Start Date: 11/28/21 Status: Ordered furosemide 40 mg oral tablet 1, tablet, By Mouth, Daily, PRN, LEG SWELLING., # 30 tablet, Refills 3, Maintenance, NEEDED, 02/16/22 7:39:00 EST, Route to Pharmacy Electronically, [facility] STORE 17051, 187, cm, 01/26/22 11:24:00 EST, Height, 91, kg, 11/20/21 17:55:00 EDT, Dry Weight Start Date: 02/16/22 Status: Ordered gabapentin 300 mg oral capsule 600 mg, 2, capsule, By Mouth, 2 times a day, # 120 capsule, Refills 5, Tot. Refills 5, Maintenance,02/10/22 15:57:00 EST, [id number] Partial fill upon patient [...] 1 Refills, Maintenance, 05/29/21 14:41:00 EDT, Tablet, [facility]/pharmacy #[id number], 186, cm, 05/29/21 14:1... Start [...] capsule, 3 Refills, Maintenance, 02/05/22 15:19:00 EST, [facility]/pharmacy #[id number], 187, cm, 01/26/22 11:24:00 EST, [...] Care Nurse Name: Nova Soto RN Position: [facility] ED RN W/OE and Tasks Member Role: Primary Care Nurse Name: Larissa Griggs MD Position: [facility] Physician (General Medicine) Member Role: PCP Address: Address: [address] [place] [address] [place] [address]- Name: Zara Gongora Position: [facility] Outreach Member Role: Lifetime Consulting Physician Name: China Gomez Position: [facility] RN Member Role: Primary Care Nurse Name: Arpit Davis RN Position: [facility] ED RN W/OE and Tasks Member Role: Primary Care Nurse Name: Gala Schwartz RN Position: [facility] RN Member Role: Primary Care Nurse Name: Marc Sidhu DO Position: [facility] Renal MD Member Role: Lifetime Consulting Physician Address: Address: [address] [place] [address] [address] [facility] [place] [address]- Name: Jannette Boyer RN Position: [facility] RN Member Role: Primary Care Nurse Name: Quang MURRELL, Sarina Gandara Position: [facility] Onco RN Member Role: Primary Care Nurse Care Team Related Persons Name: TRINIDAD CRUMP Name: ELICIA BRONSON Address: home [address] [place] [address]
--- OUTSIDE RECORDS SUMMARY | 2024-01-13 12:06 | XMS_ITS | Continuity of Care Document ---
Author Organization [facility] Address [address] [place] [address] [place] [address]- Care Team Providers Care Cotton Converter Name Role Phone Eve Warren MD, Larissa Medina Primary Care Physic sophia Encounter [facility] Date(s): 05/25/23 - 06/24/23 [facility] [address] [address] Attending Physician: Cristiano Prado Admitting Physician: AdmCristiano [...] Refills, Maintenance, 11/22/22 7:50:00 EDT, [facility], 178, cm, 10/15/22 8:07:00 EDT, Height, 99.3, kg, 08/22/22 14:01:00 EDT, Dry Weight Start Date: 11/22/22 Status: Ordered carvedilol 12.5 mg oral tablet 1, tablet, By Mouth, 2 times a day, # 180 tablet, Refills 3, Maintenance, 02/10/23 15:08:00 EST, Route to Pharmacy Electronically, [facility] 50716, 178, cm, 02/03/23 11:28:00 EST, Height, 99.3, [...] 11/10/22 14:37:00 EDT, Route to Pharmacy Electronically, [facility] 64314, 178, cm, 10/15/22 8:07:00 EDT, Height, 99.3, [...] Replace Required Details, Route to Pharmacy Electronically, [facility] 70151, 178, cm, 10/15/22 8:07:00 EDT,... Start Date: 01/24/23 Status: Ordered gabapentin 300 mg oral capsule 900 mg, 3, capsule, By Mouth, 2 times a day, # 180 capsule, Refills 5, Tot. Refills 5, Maintenance,10/15/22 8:33:00 EDT, Route to Pharmacy Electronically, [facility]/pharmacy #[id number], 178, cm, 10/15/22 8:07:00 EDT, Height, 99.3, kg, 08/22/22 14:01:00 EDT, Dry... Start Date: 10/15/22 Stop Date: 04/13/23 Status: Ordered gabapentin 300 mg oral capsule 900 mg, 3, capsule, By Mouth, 2 times a day, # 180 capsule, Refills 5, Tot. Refills 5, Maintenance,05/19/23 12:29:00 EDT, Route to Pharmacy Electronically, [id number], 186, cm, 04/20/23 21:24:00 EST, Height, 95.5, kg, 04/20/23 21:24:... Start Date: 05/19/23 Stop Date: 11/15/23 Status: Ordered latanoprost 0.005% ophthalmic solution 1 drops, Eye, Right, Daily at bedtime, 0 Refills, Maintenance, 01/01/18 18:46:39 EST Start Date: 01/01/18 Status: Ordered lidocaine 5% topical film 2 patch, Topically, Daily, remove patches after 12 hours, # 30 patch, 0 Refills, Maintenance, 04/20/23 19:59:00 EST, Film, [facility]/pharmacy #[id number], Partial fill upon patient request [...] 1 Refills, Maintenance, 05/29/21 14:41:00 EDT, Tablet, [facility]/pharmacy #[id number], 186, cm, 05/29/21 14:1... Start Date: 05/29/21 Status: Ordered oxyCODONE 5 mg oral capsule 1 capsule = 5 mg, By Mouth, Every 6 hours, PRN for pain, # 28 capsule, 0 Refills, Maintenance, 04/20/23 19:53:00 EST, Capsule, [facility]/pharmacy #0750, Partial fill upon patient request [...] Refills, Maintenance, 05/18/23 15:11:00 EDT, ER Tablet, [facility]/pharmacy #[id number], Partial fill upon patient request if the prescription is for a schedule II opioid drug., 186, c... Start Date: 05/18/23 Status: Ordered Potassium Chloride (Eqv-K-Tab) 20 mEq oral tablet, extended release See Instructions, 2 TABLET BY MOUTH EVERY TUESDAY, TUESDAY AND TUESDAY, # 26 tablet, 0 Refills, Maintenance, 05/30/23 13:43:00 EDT, [facility] STORE 18545, 186, cm, 05/25/23 14:56:00 EDT, Height, 95.5, [...] Care Nurse Name: Nova Soto RN Position: [facility] ED RN W/OE and Tasks Member Role: Primary Care Nurse Name: Larissa Griggs MD Position: [facility] Physician - Endocrinology Member Role: PCP Address: Address: [address] [place] [address] [place] [address]- Name: Zara Gongora Position: [facility] Outreach Member Role: Lifetime Consulting Physician Name: China Gomez Position: [facility] RN Member Role: Primary Care Nurse Name: Arpit Davis RN Position: [facility] ED RN W/OE and Tasks Member Role: Primary Care Nurse Name: Gala Schwartz RN Position: S RN Member Role: Primary Care Nurse Name: Marc Sidhu DO Position: [facility] Renal MD Member Role: Lifetime Consulting Physician Address: Address: [address] [place] [address] [address] [facility] [place] [address]- Name: Lonnie Rosario RN Position: [facility] RN Member Role: Primary Care Nurse Name: Jason Anand RN Position: [facility] RN Member Role: Primary Care Nurse Name: Jannette Boyer RN Position: [facility] AMB Nurse Member Role: Primary Care Nurse Name: Toby Shafer RN Position: S RN Member Role: Primary Care Nurse Name: Lesa Oneill RN Position: [facility] RN Member Role: Primary Care Nurse Name: Sarina Del Rio RN Position: [facility] Onco RN Member Role: Primary Care Nurse Care Team Related Persons Name: TRINIDAD CRUMP Name: ELICIA BRONSON Address: home [address] [place] [address]
--- OUTSIDE RECORDS SUMMARY | 2024-01-13 12:06 | XMS_ITS | Continuity of Care Document ---
Author Organization [facility] Address [address] [place] [address]- Care Team Providers Care Main Galley Scullion Name Role Phone Larissa Griggs MD Primary Care Physic sophia [place] [facility] [place] 06/05/21 [facility] [address] [place] [address]- Encounter Diagnosis Coronary artery disease(Discharge Diagnosis) - 05/29/21 Chronic kidney disease, stage 3(Discharge Diagnosis) - 05/29/21 Hypertension(Discharge Diagnosis) - 05/29/21 Attending Physician: Isidoro Marx MD Referring Physician: [...] 3 Refills, Maintenance, 02/04/21 14:50:00 EST, Tablet, [facility]/pharmacy #[id number], 186, cm, 11/27/20 13:22:00 EDT, Height Start Date: 02/04/21 Stop Date: 01/30/22 Status: Ordered Coreg 12.5 mg oral tablet 6.25 mg, 0.5, tablet, By Mouth, 2 times a day, # 90 tablet, Refills 3, Tot. Refills 3, Maintenance,05/02/20 13:32:00 EST, Route to Pharmacy Electronically, [facility] [...] capsule, Refills 5, Route to Pharmacy Electronically, [facility] STORE 36103, 186, cm, 11/27/20 13:22:00 EDT, Height Start [...] 1 Refills, Maintenance, 05/29/21 14:41:00 EDT, Tablet, [facility]/pharmacy #[id number], 186, cm, 05/29/21 [...] Service Informant Coronary artery disease Discharge Diagnosis 05/29/21 Chronic kidney disease, stage 3 Discharge Diagnosis 05/29/21 Hypertension Discharge Diagnosis 05/29/21 Vital Signs Most recent to oldest [Reference Range]: 1 Height 186 cm (05/29/21 2:17 PM) Weight 84.8 kg (05/29/21 2:17 PM) Oxygen Saturation [94-100 %] 98 % (05/29/21 2:17 PM) Pulse Rate [55-90 bpm] 71 bpm (05/29/21 2:17 PM) Body Mass Index [18.5-24.99] 24.51 (05/29/21 2:17 PM) Blood Pressure [90-138/55-84 mm Hg] 114/ 66mm Hg (05/29/21 2:17 PM) Blood pressure sites Arm, left (05/29/21 2:17 PM) Social History Social History Type Response Smoking Status Never smoker; Tobacc o user in household: No entered on: 09/03/14 Sex
--- OUTSIDE RECORDS SUMMARY | 2024-01-13 12:06 | XMS_ITS | Continuity of Care Document ---
Author Organization [facility] Address [address] [facility], [address] d Floor, [address] [place] [address]- Care Team Providers Care Counterintelligence/Humint Specialist Name Role Phone Eve Warren MD, Larissa Medina Primary Care Physic sophia Encounter [facility] [place](s): 08/16/23 - 09/15/23 [facility] [address] [place] [address], [address] [place] [id number] Allergies, Adverse Reactions, Alerts No Known Allergies [...] tablet, 3 Refills, Maintenance, 06/30/23 10:54:00 EDT, [facility] #[id number], 186, cm, 06/21/23 15:46:00 EDT, Height, 102, kg, 06/21/23 15:46:00 EDT, Dry Weight Start Date: 06/30/23 Status: Ordered carvedilol 12.5 mg oral tablet 1, tablet, By Mouth, 2 times a day, # 180 tablet, Refills 3, Maintenance, 02/10/23 15:08:00 EST, Route to Pharmacy Electronically, [email or web address] 18142, 178, cm, 02/03/23 11:28:00 EST, Height, 99.3, [...] 09/05/23 15:11:00 EDT, Route to Pharmacy Electronically, [email or web address] 75678, 185, cm, 08/09/23 6:22:00 EDT, Height, 97.8, kg, 08/08/23 14:44:00 EDT, Dry Weight Start Date: 09/05/23 Status: Ordered dorzolamide-timolol 2.23%-0.68% ophthalmic solution 1 drops, Eye, Right, 2 times a day Start Date: 11/19/21 Status: Ordered duloxetine 30 mg oral enteric coated capsule 1 capsule = 30 mg, By Mouth, Daily, start taking from 11/28/21, # 30 capsule, 0 Refills, Maintenance, 11/28/21 9:00:00 EDT, [facility], Partial fill upon patient request if the prescription is for a schedule II opioid drug., 187, cm, 10/0... Start Date: 11/28/21 Status: Ordered Eliquis 2.5 mg oral tablet 1 tablet = 2.5 mg, By Mouth, 2 times a day, # 60 tablet, 0 Refills, Maintenance, 08/09/23 8:46:00 EDT, Tablet, [facility], Partial fill [...] Replace Required Details, Route to Pharmacy Electronically, [facility] 07981, 178, cm, 10/15/22 8:07:00 EDT,... Start Date: 01/24/23 Status: Ordered gabapentin 300 mg oral capsule 900 mg, 3, capsule, By Mouth, 2 times a day, # 180 capsule, Refills 5, Tot. Refills 5, Maintenance,10/15/22 8:33:00 EDT, Route to Pharmacy Electronically, [facility]/pharmacy #[id number], 178, cm, 10/15/22 8:07:00 EDT, [...] 1 Refills, Maintenance, 05/29/21 14:41:00 EDT, Tablet, [facility]/pharmacy #[id number], 186, cm, 05/29/21 14:1... Start [...] tablet, 0 Refills, Maintenance, 08/23/23 15:15:00 EDT, [facility]/pharmacy #[id number], 185, cm, 08/09/23 6:22:00 EDT, [...] 11/24/21 11:13:00 EDT, Route to Pharmacy Electronically, [facility], Partial fill [...] Team Personnel Name: Christiano Hernandez RN Position: [facility] RN Member Role: Primary Care Nurse Name: Nova Soto RN Position: [facility] ED RN W/OE and Tasks Member Role: Primary Care Nurse Name: Larissa Griggs MD Position: [facility] Physician - Endocrinology Member Role: PCP Address: Address: [address] [place] [address] [facility] [place] [address]- Name: Zara Gongora Position: [facility] Outreach Member Role: Lifetime Consulting Physician Name: China Gomez Position: [facility] RN Member Role: Primary Care Nurse Name: Arpit Davis RN Position: [facility] ED RN W/OE and Tasks Member Role: Primary Care Nurse Name: Gala Schwartz RN Position: [facility] RN Member Role: Primary Care Nurse Name: Marc Sidhu DO Position: [facility] Renal MD Member Role: Lifetime Consulting Physician Address: Address: [address] [place], [place] [address] [place] [address]- Name: Meseret Rosario RN Position: [facility] RN Member Role: Primary Care Nurse Name: Lonnie Rosario RN Position: [facility] RN Member Role: Primary Care Nurse Name: Kirby Zavala RN Position: [facility] RN Member Role: Primary Care Nurse Name: Jason Anand RN Position: [facility] RN Member Role: Primary Care Nurse Name: Jannette Boyer RN Position: [facility] AMB Nurse Member Role: Primary Care Nurse Name: Toby Shafer RN Position: [facility] RN Member Role: Primary Care Nurse Name: Lesa Oneill RN Position: [facility] RN Member Role: Primary Care Nurse Name: Sarina Del Rio RN Position: [facility] Onco RN Member Role: Primary Care Nurse Care Team Related Persons Name: TRINIDAD CRUMP Name: ELICIA BRONSON Address: home [address] [id number]
--- OUTSIDE RECORDS SUMMARY | 2024-01-13 12:06 | XMS_ITS | Continuity of Care Document ---
Author Organization [facility] Address [address] [place] [address]- Care Team Providers Care Regional Geodetic Advisor Name Role Phone Larissa Griggs MD Primary Care Physic sophia Encounter 07/22/22 - 07/29/22 [facility] [address], [address] [place] [address]- Attending Physician: Larissa Griggs MD Admitting Physician: Larissa Griggs MD Referring Physician: Larissa Griggs MD Allergies, [...] 11/03/21 16:31:00 EDT, [id number], 186, cm, 10/23/21 14:57:00 EDT, Height, 88.1, [...] 07/05/22 10:14:00 EDT, [facility], [facility] [...] Refills, Maintenance, 11/28/21 9:00:00 EDT, [facility], Partial fill upon patient [...] Maintenance,02/10/22 15:57:00 EST, Route to Pharmacy Electronically, [facility]/pharmacy [...] Exam Date Time Procedure Performing Provider Status 07/22/22 2:49 PM US Soft Tissue Head/Neck Fredo Louis in; Auth (Verified) Notes: (US Soft Tissue Head/Neck) Reason For Exam: E04.2 NONTOXIC MULTINODULAR GOITER RESULT: US Soft Tissue Head/Neck US Soft Tissue Head/Neck Reason: E04.2 NONTOXIC MULTINODULAR GOITER; Clinical Question(s): Other: COMPARISON: Multiple priors, most recent on 10/30/2018. FINDINGS: RIGHT THYROID LOBE: 6.3 x 2.5 x 2.7 cm, volume 22.3 cc, not significantly changed. Nodule findings detailed below. Surrounding thyroid demonstrates heterogeneous echotexture. Normal parenchymal vascularity. Nodule #1: Mid-gland, 2.1 x 1.3 x 1.6 cm cm, solid, isoechoic, not rhheau-[id number], ill-defined margin, no echogenic foci. TI-RADS Category 3. Only marginal increase in size since 2016, where it measured 1.9 cm. LEFT THYROID LOBE: 6.5 x 2.4 x 2.6 cm, volume 21.1 cc, left significantly changed. There are numerous nodules throughout the left lobe. Several of them are cystic with findings suggesting colloid cysts. Surrounding thyroid demonstrates heterogeneous echotexture. Normal parenchymal vascularity. Inventory Control Analyst nodule #1: Mid-gland, 1.6 x 1.1 x 1.1 cm cm, mixed cystic and solid, isoechoic, not mvqttv-gvka-qifu, smooth margin, no echogenic foci. TI- RADS Category 2. This nodule measured up to 1.1 cm previously in 2016. ISTHMUS: Thickness: 1 cm. IMPRESSION: Multinodular goiter. The index nodule in the right lobe measures up to 2.1 cm and demonstrates sonographic features of TI-RADS Category 3 nodule. The size has only marginally increased since 2016. Routine follow-up is not required per ACR guidelines. TI-RADS 2017 reference: Bashir FN, Lesly WD, Anatoly EG, et al. ACR Thyroid Imaging, Reporting and Data System (TI-RADS): White Paper of the ACR TI-RADS Committee. J Am Maddie Radiol. Volume 14, Issue 5 , 587 - 595. https://doi.org/10.1016/j.jacr.2017.01.046 ACR TI-RADS recommendations: TR1 and TR2: No FNA or follow-up. TR3: FNA if greater than 2.4 cm, follow-up if 1.5-2.4 cm in 1, 3 and 5 years. TR4: FNA if greater than 1.4 cm, follow-up if 1.0-1.4 cm in 1, 2, 3 and 5 years. TR5: FNA if greater than 0.9 cm, follow-up if 0.5-0.9 cm every year for 5 years. TI-RADS calculator: http://tiradscalculator.com/ WSN: [id number] Ordering Physician: Larissa Griggs Dictated By: Apryl Mills MD Dictated Date/Time: 07/22/22 4:12 pm Reviewed By: Apryl Mills MD Signed By: Apryl Mills MD Signed Date/Time: 07/22/22 4:12 pm Transcribed By: MY Transcribed Date/Time: 07/22/22 4:05 pm Social History Social History Type Response Smoking Status Never smoker; Tobacc o user in household: No entered on: 09/03/14 Sex US Head and neck soft tissue * BHSPowerscribe , CIS S: TRANSCRIBE Apryl Mills MD: VERIFY Event Display: Result: Authored Date: [id number] US Soft Tissue Head/Neck Reason: E04.2 NONTOXIC MULTINODULAR GOITER; Clinical Question(s): Other: COMPARISON: Multiple priors, most recent on 10/30/2018. FINDINGS: RIGHT THYROID LOBE: 6.3 x 2.5 x 2.7 cm, volume 22.3 cc, not significantly changed. Nodule findings detailed below. Surrounding thyroid demonstrates heterogeneous echotexture. Normal parenchymal vascularity. Nodule #1: Mid-gland, 2.1 x 1.3 x 1.6 cm cm, solid, isoechoic, not rclbna-jvls-ufvs, ill-defined margin, no echogenic foci. TI-RADS Category 3. Only marginal increase in size since 2016, where it measured 1.9 cm. LEFT THYROID LOBE: 6.5 x 2.4 x 2.6 cm, volume 21.1 cc, left significantly changed. There are numerous nodules throughout the left lobe. Several of them are cystic with findings suggesting colloid cysts. Surrounding thyroid demonstrates heterogeneous echotexture. Normal parenchymal vascularity. Inventory Control Analyst nodule #1: Mid-gland, 1.6 x 1.1 x 1.1 cm cm, mixed cystic and solid, isoechoic, not hmdwtp-dhvb-fcir, smooth margin, no echogenic foci. TI- RADS Category 2. This nodule measured up to 1.1 cm previously in 2016. ISTHMUS: Thickness: 1 cm. IMPRESSION: Multinodular goiter. The index nodule in the right lobe measures up to 2.1 cm and demonstrates sonographic features of TI-RADS Category 3 nodule. The size has only marginally increased since 2016. Routine follow-up is not required per ACR guidelines. TI-RADS 2017 reference: Izzysler FN, Lesly WD, Anatoly EG, et al. ACR Thyroid Imaging, Reporting and Data System (TI-RADS): White Paper of the ACR TI-RADS Committee. J Am Maddie Radiol. Volume 14, Issue 5 , 587 595. https://doi.org/10.1016/j.jacr.2017.01.046 ACR TI-RADS recommendations: TR1 and TR2: No FNA or follow-up. TR3: FNA if greater than 2.4 cm, follow-up if 1.5-2.4 cm in 1, 3 and 5 years. TR4: FNA if greater than 1.4 cm, follow-up if 1.0-1.4 cm in 1, 2, 3 and 5 years. TR5: FNA if greater than 0.9 cm, follow-up if 0.5-0.9 cm every year for 5 years. TI-RADS calculator: http://tiradscalculator.com/ WSN: [id number] Ordering Physician: Larissa Griggs Dictated By: Apryl Mills MD Dictated Date/Time: 07/22/22 4:12 pm Reviewed By: Apryl Mills MD Signed By: Apryl Mills MD Signed Date/Time: 07/22/22 4:12 pm Transcribed By: MY Transcribed Date/Time: 07/22/22 4:05 pm Patient Care team information Care Team Personnel Name: Christiano Hernandez RN Position: S RN Member Role: Primary Care Nurse Name: Nova Soto RN Position: [facility] ED RN W/OE and Tasks Member Role: Primary Care Nurse Name: Larissa Griggs MD Position: [facility] Physician - Endocrinology Member Role: PCP Address: Address: [address] [place] [address] [facility] [address] Name: Zara Gongora Position: [facility] Outreach Member Role: Lifetime Consulting Physician Name: China Gomez Position: [facility] RN Member Role: Primary Care Nurse Name: Arpit Davis RN Position: [facility] ED RN W/OE and Tasks Member Role: Primary Care Nurse Name: Gala Schwartz RN Position: [facility] RN Member Role: Primary Care Nurse Name: Marc Sidhu DO Position: [facility] Renal MD Member Role: Lifetime Consulting Physician Address: Address: [address] [place], [place] [address] [place] [address]- Name: Lonnie Rosario RN Position: [facility] RN Member Role: Primary Care Nurse Name: Jason Anand RN Position: [facility] RN Member Role: Primary Care Nurse Name: Sarina Del Rio RN Position: [facility] Onco RN Member Role: Primary Care Nurse Name: Emmie Vera Position: [facility] RN Member Role: Primary Care Nurse Name: Eve Warren MD, Larissa Medina Position: [facility] Physician - Endocrinology Med Service: Endocrinology Member Role: Referring Physician Address: Address: [address] [place] [address] [place] [address]- Care Team Related Persons Name: TRINIDAD CRUMP Name: ELICIA BRONSON Address: [address] [place] [address]
--- OUTSIDE RECORDS SUMMARY | 2024-01-13 12:06 | XMS_ITS | Continuity of Care Document ---
Author Organization [facility] Address [address], [address] [place] [id number]- Care Team Providers Care Editor News Name Role Phone Eve Warren MD, Larissa Medina Primary Care Physic sophia Encounter [facility] Date(s): 03/31/20 - 04/30/20 [facility] [address], [address], [address] [place] [address]- Attending Physician: AdmCristiano buenrostro Admitting Physician: AdmtrCristiano Referring Physician: Admtr, Ar8 Allergies, Adverse Reactions, Alerts Substance Reaction Severity [...] 3 Refills, Maintenance, 02/12/20 11:35:00 EST, Tablet, [facility]/pharmacy #[id number], 186, cm, 10/19/19 [...] Maintenance,01/31/20 10:05:00 EST, Route to Pharmacy Electronically, [facility]/pharmacy #[id number], 186, cm, 10/19/19 [...] Route to Pharmacy Electronically, [facility]/pharmacy #[id number], Partial fill upon [...] 01/15/20 14:41:00 EST, Route to Pharmacy Electronically, [facility]/pharmacy #[id number], 186, cm, 10/19/19 15:51:00 EDT, Height, 97, kg, 06/16/18 9:43:00 EDT, Dry Weight Start Date: 01/15/20 Stop Date: 01/09/21 Status: Ordered loperamide 2 mg oral tablet, chewable 1 tablet = 2 mg, Chew, 2 times a day, PRN for loose stool, # 20 tablet, 0 Refills, Maintenance, 08/16/19 18:31:00 EDT, Chew Tablet, [facility]/pharmacy #[id number], 1 tablet Chew [...] 1 Refills, Maintenance, 07/17/19 11:37:00 EDT, Tablet, [facility]/pharmacy #[id number], 186, cm, 03/02/19 [...] 0 Refills, Maintenance, 08/16/19 18:31:00 EDT, Tablet, [facility]/pharmacy #[id number], 186, cm, 03/02/19 [...]
--- OUTSIDE RECORDS SUMMARY | 2024-01-13 12:06 | XMS_ITS | Continuity of Care Document ---
Author Organization [facility] Address [address] [place] [id number]- Care Team Providers Care Smoke Tester Name Role Phone Larissa Griggs MD Primary Care Physic sophia En[place] [facility] Date(s): 11/07/20 - 11/14/20 [facility] [address] [place] [id number]- Encounter Diagnosis Coronary artery disease(Discharge Diagnosis) - 11/07/20 Hypertension(Discharge Diagnosis) - 11/07/20 Hypokalemia(Discharge Diagnosis) - 11/07/20 Chronic kidney disease, stage 3(Discharge Diagnosis) - 11/07/20 Attending Physician: Isidoro Marx MD Referring Physician: [...] Refills, Maintenance, 02/12/20 11:35:00 EST, Tablet, [id number], 186, cm, 10/19/19 15:51:00 EDT, Height, 97, [...] 05/02/20 13:32:00 EST, Route to Pharmacy Electronically, [facility]/pharmacy #[id number], Partial fill upon [...] 02/07/20 14:17:00 EST, Route to Pharmacy Electronically, [facility]/pharmacy #[id number], Partial fill upon [...] 01/15/20 14:41:00 EST, Route to Pharmacy Electronically, [facility]/pharmacy #[id number], 186, cm, 10/19/19 15:51:00 EDT, Height, 97, kg, 06/16/18 9:43:00 EDT, Dry Weight Start Date: 01/15/20 Stop Date: 01/09/21 Status: Ordered loperamide 2 mg oral tablet, chewable 1 tablet = 2 mg, Chew, 2 times a day, PRN for loose stool, # 20 tablet, 0 Refills, Maintenance, 08/16/19 18:31:00 EDT, Chew Tablet, [facility]/pharmacy #[id number], 1 tablet Chew [...] 1 Refills, Maintenance, 07/17/19 11:37:00 EDT, Tablet, [facility]/pharmacy #[id number], 186, cm, 03/02/19 [...] 0 Refills, Maintenance, 08/16/19 18:31:00 EDT, Tablet, [facility]/pharmacy #[id number], 186, cm, 03/02/19 8:12:00 EST, Height, 97, kg, 06/16/18 9:43:00 EDT, Dry Weight Start Date: 08/16/19 Status: Ordered Problem List Condition Effective Dates Status Health Status Inform ant Chronic kidney disease, stag e 3(Confirmed) Active Coronary artery disease(Confirmed) Active Hypertension(Confirmed) Active Hypokalemia(Confirmed) Active Diagnosis Diagnosis Type Effective Dates Health Status Clinical Service Informant Coronary artery disease Discharge Diagnosis 11/07/20 Hypertension Discharge Diagnosis 11/07/20 Hypokalemia Discharge Diagnosis 11/07/20 Chronic kidney disease, stage 3 Discharge Diagnosis 11/07/20 Vital Signs Most recent to oldest [Reference Range]: 1 Height 186 cm (11/07/20 1:39 PM) Weight 89.6 kg (11/07/20 1:39 PM) Oxygen Saturation [94-100 %] 99 % (11/07/20 1:39 PM) Pulse Rate [55-90 bpm] 70 bpm (11/07/20 1:39 PM) Body Mass Index [18.5-24.99] 25.9 *H* (11/07/20 1:39 PM) Blood Pressure [90-138/55-84 mm Hg] 126/ 64mm Hg (11/07/20 1:39 PM) Temperature [96.8-100.4 DegF] 98.1 DegF (11/07/20 1:39 PM) Blood pressure sites Arm, right (11/07/20 1:39 PM) Temperature Route Temporal (11/07/20 1:39 PM) Social History Social History Type Response Smoking Status Never smoker; Tobacc o user in household: No entered on: 09/03/14 Sex
== END 2024-01-06 16:30 | disposition home or self-care (01) ==
LOC: HO.HUSH 14:18
PROVIDERS: PCP Internal Medicine Endocrinology, Diabetes & Metabolism; Visit Provider Urology
DX: C61 Malignant neoplasm of prostate (principal); R39.15 Urgency of urination
CPT/HCPCS: 99214

== ENCOUNTER 2024-05-22 11:17 | Outpatient (AMB) | payer MEDICARE, OTHER, SELFPAY ==
--- NOTE | 2024-05-22 12:01 | A.OFFVIS_ITS ---
Intake Visit Reasons: 5M/ labs Intake Note: Patient is present for 5M/LABS Urology Medication:TESTOSTERONE,TADALAFIL,ALLOPURINOL Antibiotic Allergy:NONE Blood Thinner:NONE Machine Pan Greaser Required: No Allergies No Known Allergies Allergy (Verified 05/22/24 12:02) HPI Comments Details: J Carlos is a pleasant male. He is a patient of Dr Dillon. He is seen for the following urologic conditions - hypogonadism - prostate cancer Testosterone on-call Bladder is continued to show stabilization with daily tadalafil Does occasionally have episodes where he urinates excessive amounts Labs 04/15 PSA <0.1, T 400, 02/12 <0.1 T 380, 11/14 T 61 <0.1, 05/15 T 870 Symptoms remain stable Continue with low-dose testosterone 6 month follow-up lab work Hypogonadism: T at 0.3 cc subcu weekly Wed He presents today for further evaluation and followup of his hypogonadism. Initial symptoms include erectile dysfunction Yes decreased libido Yes change in mood/depression Yes in muscle size/strength Yes increased fatigue/malaise Yes The onset of symptoms has been gradual, over the past few years. 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 Therapeutic plan continue current medication - review in 6m. Prostate cancer: Grade group 3 radical prostatectomy 2008 For ED instructions given for use of MUSE. Can try sildenafil 200 mg. This is the maximum dose. Prescription provided. Prostate cancer was diagnosed 2008 Dr Lemus. Diagnosis was reached by needle biopsy, for elevated PSA, PSA at diagnosis 5.4. The Shaheen grade is 4+3 = 7 at surgery. TNM Classification of Malignant Tumours (TNM) T1c. The D'Sparkle (NCCN) risk category is Intermediate Risk (PSA 10-20, Gl 7, T2). Initial therapy included Primary treatment, Prostatectomy (RRP/Robotic) 2008 , Additional treatment, Observation. Recent labs included a PSA (prostate-specific antigen) 2015, < 0.1 05/07 , a PSA (prostate-specific antigen), < 0.1 03/10 , a PSA (prostate-specific antigen), < 0.1 09/07 , a PSA (prostate-specific antigen), < 0.1 08/10 PSA < 0.1, 02/09 <0.1 - 08/11 <0.1 Therapeutic plan: Continue with surveillance [facility] Medical History (Updated 05/22/24 @ 12:26 by Dante Lemus MD) Gout Hypercholesterolemia Depression Hypogonadism in male Stress incontinence, male HTN (hypertension) Glaucoma Erectile dysfunction after radical prostatectomy Prostate cancer Surgical History History of surgery Review of Systems Const Denies chills and Denies fever(s) Card Reports no additional complaints and Denies syncope Resp Denies cough GI Denies abdominal pain and Denies heartburn Reports as per HPI and Denies change in libido Neuro Denies syncope Psych Denies change in libido Endo Denies change in libido Physical Exam Const General: cooperative, healthy appearing, comfortable and no acute distress Orientation/consciousness: patient oriented x3 HEENT Face and sinus: Yes normal facial exam Mouth: moist mucous membranes Neck Neck: Yes normal visual inspection, Yes full ROM and Yes trachea midline Chest Chest palpation & inspection: normal inspection of the chest Resp Effort & Inspection: normal respiratory effort, able to speak in complete sentences and no respiratory distress GI Inspection: Yes normal to inspection Back/Spine/Pelvis Cervical Spine: normal cervical lordosis Thoracic/Lumbar Spine: thoracic and lumbar spine normal to inspection Skin General skin exam: no rashes or lesions noted Neuro General: patient oriented x3, gait normal, tone normal and moves all extremities Extrem General: Yes normal to inspection and Yes capillary refill normal Assessment & Plan Assessment & Plan (1) Hypogonadism in male: Code(s): E29.1 - Testicular hypofunction Category: Medical (2) Prostate cancer: Code(s): C61 - Malignant neoplasm of prostate Category: Medical (3) Erectile dysfunction after radical prostatectomy: Code(s): N52.31 - Erectile dysfunction following radical prostatectomy Category: Medical Plan Six-month follow-up lab work Orders: Orders Prostate Specific Antigen 6 Months E29.1 - Testicular hypofunction Testosterone, Total 6 Months E29.1 - Testicular hypofunction Complete Blood Count no Diff 6 Months E29.1 - Testicular hypofunction Medications: New sildenafil administer 60 minutes before intended activity - [id number] [facility] [id number] 100 mg PO ONCE PRN 30 tabs 1RF sexual activity 30 days N52.31 - Erectile dysfunction following radical prostatectomy Patient Instructions: This note is constructed using voice recognition software. While every effort has been made to ensure accuracy cement finishing supervisor errors may have been included. Imaging studies, laboratory and physical exam results were discussed and reviewed in detail. No major barriers to patient understanding were identified. An opportunity to ask questions regarding the treatment plan was provided. All questions were answered. The patient expressed understanding and agreement with the above treatment plan. The patient is aware they should contact our office by phone for worsening of their current condition or the appearance of new urologic symptoms. Compliance is encouraged with any medications and followup testing that is ordered. It is a privilege to participate in the urologic care of your patient. If you have any questions or concerns regarding treatment for the above conditions, or other urologic issues, please do not hesitate to contact me. The office telephone contact is [phone]. Sincerely, Dr Dante Lemus MD, [facility] - Urology Compassionate Specialist Care for the Genitourinary System Coding Level of Care Code Est Pt Level 3 (09578) Complex EM visit Add On G2211 Diagnoses Hypogonadism in male E29.1 Prostate cancer C61 Erectile dysfunction after radical prostatectomy N52.31
--- OUTSIDE RECORDS SUMMARY | 2024-05-22 13:39 | XMS_ITS | Clinical Summary ---
Author Organization [facility], Address [address] [place] [address] [place] [address] Phone Care Team Providers Care Director Stage Name Role Phone Larissa Dillon MD Primary Care Provider Allergies No known active allergies Medications acetaminophen (TYLENOL) 325 MG tablet Take 650 mg by mouth every 4 (four) hours if needed Active allopurinol (ZYLOPRIM) 300 MG tablet Take 300 mg by mouth 1 (one) time each day Active aspirin 81 MG tablet Take 81 mg by mouth 1 (one) time each day Active atorvastatin (LIPITOR) 80 MG tablet Take 80 mg by mouth 1 (one) time each day Active Cholecalciferol (VITAMIN D) 25 MCG (1000 UT) tablet Take 1,000 Units by mouth 1 (one) time each day Active colchicine 0.6 MG tablet Take 0.6 mg by mouth 1 (one) time each day Active gabapentin (NEURONTIN) 300 MG capsule Take 900 mg by mouth twice a day Active imipramine (TOFRANIL) 50 MG tablet Take 50 mg by mouth twice a day Active testosterone enanthate (DELATESTRYL) 200 MG/ML injection Inject into the shoulder, thigh, or buttocks every 14 (fourteen) days Active carvedilol (COREG) 12.5 MG tablet Take 12.5 mg by mouth in the morning and 12.5 mg in the evening. Take with meals. 12/24/2020 Active furosemide (LASIX) 40 MG tablet Take 40 mg by mouth 3 times weekly: Tue and Tuesday morning Active prochlorperazin e (COMPAZINE) 10 MG tablet Take 1 tablet (10 mg total) by mouth every 6 (six) hours if needed for vomiting or nausea 16 tablet 07/13/2022 Active amLODIPine (NORVASC) 5 MG tablet Take 5 mg by mouth 1 (one) time each day Active nitroglycerin (NITROSTAT) 0.[address] 0.4 mg under the tongue every 5 (five) minutes if needed for chest pain Active potassium chloride (KLOR-CON M20) 20 MEQ CR tablet Take 40 mEq by mouth 3 times weekly: Tue and Tuesday morning Do not crush or chew. 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 Chronic kidney disease, stage 2 (mild) 0 Essential hypertension Anemia Hypokalemia Hyperlipidemia Gout Diastolic dysfunction Coronary artery disease due to calcified coronar y lesion Resolved Problems Problem Noted Date Diagnosed Date Resolved Date Nausea 03/24/2022 03/02/2023 Hyponatremia 10/22/2022 Overview (06/25/2019): due to EtOH consumption beer potomania Cancer of skin 06/23/2021 Overview (01/02/2020): neck, head, scalp Carcinoma of prostate 2023 Encounters Date Type Department Care Team Description 02/29/2024 2:30 PM EST [facility] [address] [place] [phone] Marc Sidhu DO Hypertension secondary to endocrine disorder (Primary Dx); 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 (HCC); Hypokalemia; Diastolic dysfunction 02/28/2024 Documentation Only [facility] [address] [place] [phone] Marc Sidhu DO 02/28/2024 Documentation Only [facility] [address] [place] [phone] Marc Sidhu DO from Last 3 Months Immunizations Name Administration Dates Next Due Influenza Split High Dose Pr eservative Free IM 10/11/2019,11/28/2015,11/26/2014 Influenza, MDCK, PF, Quadrivalent 12/01/2018 Influenza, Unspecified 11/27/2014 Pneumococcal Conjugate 13-Valent 11/06/2015 Pneumococcal Polysaccharide 12/15/2010 Family History Medical History Relation Comments Prostate cancer Brother Liver cancer Father Breast cancer Mother Relation Status Comments Brother Father Mother Social History Tobacco Use Types Packs/Day Years Used Date Smoking Tobacco: Never Alcohol Use Standard Drinks/Week Comments Yes 0 (1 standard drink = 0.6 oz pure alcohol) Alcoholic Drinks/day: 1-2 drinks per day Sex and Gender Information Value Date Recorded Sex Assigned at Male 03/11/2023 3:55 PM EST Legal Sex Male 4:33 PM EST Gender Identity Male 03/11/2023 3:55 PM EST Sexual Orientation Not on file Last Filed Vital Signs Vital Sign Reading Time Taken Comments Blood Pressure 124/68 02/29/2024 2:58 PM EST Pulse 72 02/29/2024 2:58 PM EST Temperature - - Respiratory Rate - - Oxygen Saturation - - Inhaled Oxygen Concentration - - Weight 94.3 kg (208 lb) 11/01/2018 12:00 PM EDT Height 185.4 cm (6' 1 ) 11/01/2018 12:00 PM EDT Body Mass Index 27.44 11/01/2018 12:00 PM EDT Plan of Treatment Upcoming Encounters Date Type Department Care Team (Late st Contact Info) Description 11/02/2024 1:45 PM EDT Office Visit [facility], [address] [facility] [place] [phone] Marc Sidhu DO [address] [place] [phone] Health Maintenance Due Date Last Done Comments Colorectal Cancer Screening: Annual FOBT 1997 Colorectal Cancer Screening: Colonoscopy 1997 Colorectal Cancer Screening: Sigmoidoscopy 1997 Pneumococcal Vaccine: 65+ Years (3 of 3 - PPSV23 or PCV20) 01/01/2016 11/06/2015, 12/15/2010 Influenza Vaccine (#1) 2023 , 12/01/2018, 11/28/2015, Additional history exists Hepatitis B Vaccine Aged Out No longe r eligible based on patient's age to complete this topic Insurance MEDICARE [facility] Care Teams Director Stage Relationship Specialty Start Date End Date Larissa Dillon MD [address] [place] [address] [address] [place] [phone] PCP - General 12/26/18
--- OUTSIDE RECORDS SUMMARY | 2024-05-22 13:39 | XMS_ITS | Clinical Summary ---
Author Organization [address] Address [address] [place] [phone] Care Team Providers Care Semiconductor Processor Name Role Phone Larissa Dillon MD Primary Care Provider Allergies No known active allergies Medications acetaminophen (TYLENOL) 500 mg tablet 2 tablet NEEDED (route: oral) 08/09/2023 Active allopurinoL (ZYLOPRIM) 300 mg tablet 05/26/2023 Active ascorbic acid, vitamin C, (STRAWBERRY C) 500 mg Chew Take by mouth. Active atorvastatin (LIPITOR) 80 mg tablet 06/30/2023 Active carvediloL (COREG) 6.25 mg Immediate Release tablet Take 2 tablets (12.5 mg total) by mouth. Active CELEBREX 200 mg capsule Take by mouth. 03/17/2023 Active cholecalciferol , vitamin D3, 25 mcg (1,000 unit) tablet Take 1 tablet (1,000 Units total) by mouth daily. Active cyanocobalamin 1000 MCG tablet Take by mouth. Active donepeziL (ARICEPT) 5 mg tablet Take by mouth. 09/05/2023 Active dorzolamide-mariya oloL (COSOPT) 22.3-6.8 mg/mL ophthalmic solution Active DULoxetine (CYMBALTA) 30 mg capsule Take 1 capsule (30 mg total) by mouth daily. 10/31/2023 Active ferrous sulfate (FEOSOL) 325 mg (65 mg iron) tablet Take by mouth. Active gabapentin (NEURONTIN) 300 mg capsule Take by mouth. Active furosemide (LASIX) 40 mg tablet 01/24/2023 Active glucosamine-cho ndroitin 500-400 mg Cap Take 1 capsule by mouth daily. Active methocarbamoL (ROBAXIN) 750 mg tablet Take 1 tablet (750 mg total) by mouth 4 (four) times daily. Active pantoprazole (PROTONIX) 40 mg tablet Take 1 tablet (40 mg total) by mouth daily. Active testosterone enanthate (DELATESTRYL) 200 mg/mL injection Inject 0.25 mLs (50 mg total) into the muscle every 14 (fourteen) days. Active thiamine (VITAMIN B-1) 100 mg tablet Take 1 tablet (100 mg total) by mouth daily with breakfast. Active multivitamin with minerals tablet Take 1 tablet by mouth daily. Active tadalafiL (CIALIS) 5 mg tablet Take 1 tablet (5 mg total) by mouth as needed for erectile dysfunction. Active latanoprost (XALATAN) 0.005 % ophthalmic solution Place 1 drop into both eyes nightly. Active Active Problems No known active problems Social History Tobacco Use Types Packs/Day Years Used Date Smoking Tobacco: Never Passive Smoke Exposure: Never Smokeless Tobacco: Never Tobacco Cessation:Counseling Given: Not Answered Alcohol Use Standard Drinks/Week Comments Not Currently 0 (1 standard drink = 0.6 oz pur e alcohol) Sex and Gender Information Value Date Recorded Sex Assigned at Not on file Legal Sex Male 5:57 PM EDT Gender Identity Not on file Sexual Orientation Not on file Last Filed Vital Signs Vital Sign Reading Time Taken Comments Blood Pressure 159/88 11/10/2023 8:14 AM EDT Pulse 85 11/10/2023 8:14 AM EDT Temperature - - Respiratory Rate 18 11/10/2023 8:14 AM EDT Oxygen Saturation 96% 11/10/2023 8:14 AM EDT Inhaled Oxygen Concentration - - Weight 99.8 kg (220 lb) 11/10/2023 8:14 AM EDT Height 185.4 cm (6' 1 ) 11/10/2023 8:14 AM EDT Body Mass Index 29.03 11/10/2023 8:14 AM EDT Plan of Treatment Health Maintenance Due Date Last Done Comments HIV screening 1961 Hepatitis C screening 1966 Tetanus adult (Td q 10,TDAP once) 1968 Lipid disorder screening 1988 Colon cancer screening, Colonoscopy 1993 Diabetes screening 1993 Shingles vaccine (Shingrix) (1 of 2 - Shingrix (RZV) 2 Dose Standard Series) 1998 Pneumococcal Vaccine (50+ years) (3 of 3 - PPSV23 or PCV20) 11/05/2020 11/06/2015, 12/15/2010 Influenza vaccine 09/22/2023 10/11/2019, , 11/28/2015, Additional history exists RSV Immunization (1 - 1-dose 75+ series) 10/10/2023 Covid-19 vaccine series ( - 2023- season) 2023 Meningococcal Vaccine Aged Out No coleman dolly eligible based on patient's age to complete this topic Insurance MEDICARE [employer] MEDICARE [employer] MEDICARE [employer] Care Teams Semiconductor Processor Relationship Specialty Start Date End Date Larissa Dillon MD [address] [place] [address] [place] [phone] PCP - General Endocrinology, Diabetes & Metabolism 11/10/23
--- OUTSIDE RECORDS SUMMARY | 2024-05-22 13:39 | XMS_ITS | Encounter Summary ---
Author Organization [facility] Address [address] [place] [address] Phone Care Team Providers Care Physician Specialist Name Role Phone Larissa Dillon MD Primary Care Provider Encounter Details Date Type Department Care Team (Late st Contact Info) Description 06/23/2021 Documentation Only [facility] [address] [place] [address] Zara Gongora [address] [place] [address] Social History Tobacco Use Types Packs/Day Years [...] PM EST Sexual Orientation Not on file documented as of this encounter Plan of Treatment Upcoming Encounters Date Type Department Care Team (Late st Contact Info) Description 11/02/2024 1:45 PM EDT Office Visit [facility] [address] [place] [address] Marc Sidhu [address] [place] [address] documented as of this encounter Visit Diagnoses Not on filedocumented in this encounter Care Teams Physician Specialist Relationship Specialty Start Date End Date Larissa Dillon MD [address] [place] [address] PCP - General 12/26/18 documented as of this encounter
--- OUTSIDE RECORDS SUMMARY | 2024-05-22 13:39 | XMS_ITS | Encounter Summary ---
Author Organization [facility] Address [address] [place] [address] Phone Care Team Providers Care Oil And Gas Well Treatment Operator Name Role Phone Larissa Dillon MD Primary Care Provider Encounter Details Date Type Department Care Team (Late st Contact Info) Description 02/03/2023 Documentation Only [facility] [address] [facility] [address] Marc Sidhu DO [address] [facility] [place] [address] Social History Tobacco Use Types Packs/Day Years [...] Visit [facility] [address] [facility] [address] Marc Sidhu DO [address] [facility] [place] [address] documented as of this encounter Visit Diagnoses Not on filedocumented in this encounter Care Teams Oil And Gas Well Treatment Operator Relationship Specialty Start Date End Date Larissa Dillon MD [address] [address] [place] [address] PCP - General 12/26/18 documented as of this encounter
--- OUTSIDE RECORDS SUMMARY | 2024-05-22 13:39 | XMS_ITS | Clinical Summary ---
Author Organization [facility] Address [address] [place] [address] Care Team Providers Care Distribution Analyst Name Role Phone Larissa Dillon MD Primary Care Provid er Surgical History Surgery Date Site/Laterality Comments HAND SURGERY PROCEDURE:HAND SURGERY LUNG SURGERY PROCEDURE:LUNG SURGERY PLANTAR FASCIA SURGERY PROCEDURE:PLANTAR FASCIA SURGERY OTHER SURGICAL HISTORY PROCEDURE: PA ARTHRP ACETBLR/PROX FEM PROSTC AGRFT/ALGRFT ROTATOR CUFF REPAIR 03/2017 Right PROCEDURE: HISTORICAL ROTATOR CUFF REPAIR PROSTATE SURGERY 2008 PROCEDURE: HISTORICAL PROSTATE SURGERY; COMMENT: prostatectomy BACK SURGERY 10/19/2023 PROCEDURE: HISTORICAL BACK SURGERY; COMMENT: T11 kyphoplasty, Dr. Henderson Medical History Medical History Date Comments Cancer (CMS/HCC) DX:Cancer (HCC) Angina pectoris DX:Angina pector is (HCC) Hypertension DX:Hypertension Gout DX:Gout Heart attack (CMS/HCC) DX:Heart attack (HCC) Anxiety state DX:Anxiety state Depressive disorder DX:Depressiv e disorder Glaucoma DX:Glaucoma Essential hypertension DX:Essent ial hypertension Cataract DX:Cataract Heart attack (CMS/HCC) 2017 DX:Heart attack (HCC) Family History Medical History Relation Name Comments Cancer Brother Clotting disorder Brother Cancer Father Cancer Mother Relation Name Status Comments Brother Father Mother Social History Tobacco Use Types Packs/Day Years Used Date Smoking Tobacco: Never Smokeless Tobacco: Never Alcohol Use Standard Drinks/Week Comments No 0 (1 standard drink = 0.6 oz pur e alcohol) Sex and Gender Information Value Date Recorded Sex Assigned at Male 12/22/2023 1:20 PM EDT Legal Sex Male 1:18 AM EST Gender Identity Male 12/22/2023 1:20 PM EDT Sexual Orientation Straight 12/22/2023 1: 20 PM EDT Obstetrics History Last Filed Vital Signs Vital Sign Reading Time Taken Comments Blood Pressure - - Pulse - - Temperature - - Respiratory Rate - - Oxygen Saturation - - Inhaled Oxygen Concentration - - Weight 99.8 kg (220 lb) 10/21/2023 10:51 AM EDT Height 185.4 cm (6' 1 ) 10/21/2023 10:51 AM EDT Body Mass Index 29.03 10/21/2023 10:51 AM EDT Plan of Treatment Health Maintenance Due Date Last Done Comments COVID-19 Vaccine (#1) 1953 DTaP,Tdap,and Td Vaccines (1 - Tdap) 10/10/1967 Pneumococcal Vaccine: 50+ Ye ars (1 of 1 - PCV) 1998 Zoster Vaccines (1 of 2) 1998 Cholesterol Screening (Lipid Panel) 01/24/2022 Colorectal Cancer Screening: Colonoscopy 01/24/2022 Depression Screening 01/24/2022 Falls Risk Assessment 01/24/2022 Hepatitis C Screening 01/24/2022 Social Influencers of Health Screening 01/24/2022 RSV Immunization Patients 60 + Years Old (1 - 1-dose 75+ series) 10/10/2023 Influenza Vaccine (#1) 2023 HIB Vaccines Aged Out No longer eligi ble based on patient's age to complete this topic HPV Vaccines Aged Out No longer eligi ble based on patient's age to complete this topic Hepatitis A Vaccines Aged Out No long er eligible based on patient's age to complete this topic Hepatitis B Vaccines Aged Out No long er eligible based on patient's age to complete this topic IPV Vaccines Aged Out No longer eligi ble based on patient's age to complete this topic MMR Vaccines Aged Out No longer eligi ble based on patient's age to complete this topic Meningococcal ACWY Vaccine Aged Out N o longer eligible based on patient's age to complete this topic Meningococcal B Vacine Aged Out No lo nger eligible based on patient's age to complete this topic RSV Immunization Patients Un kang 20 months Aged Out No longer eligible b ased on patient's age to complete this topic Varicella Vaccines Aged Out No longer eligible based on patient's age to complete this topic Care Teams Distribution Analyst Relationship Specialty Start Date End Date Larissa Dillon MD [address] [place] [address] [address] [place] [phone] PCP - General Gastroenterology 04/08/20
--- OUTSIDE RECORDS SUMMARY | 2024-05-22 13:39 | XMS_ITS | Encounter Summary ---
Author Organization [facility] Address [address] [place] [address] Phone Care Team Providers Care Information Systems Architect Name Role Phone Larissa Dillon MD Primary Care Provider Encounter Details Date Type Department Care Team (Late st Contact Info) Description 01/24/2023 Documentation Only [facility] [address] [place] [address] Marc Sidhu DO [address] [facility] [place] [address] Social History Tobacco Use Types [...] Visit [facility] [address] [place] [address] Marc Sidhu DO [address] [facility] [place] [address] documented as of this encounter Visit Diagnoses Not on filedocumented in this encounter Care Teams Information Systems Architect Relationship Specialty Start Date End Date Larissa Dillon MD [address] [address] [place] [address] PCP - General 12/26/18 documented as of this encounter
--- OUTSIDE RECORDS SUMMARY | 2024-05-22 13:39 | XMS_ITS | Encounter Summary ---
Author Organization [facility] Address [address] [place] [address] Phone Care Team Providers Care Roller Mill Operator Name Role Phone Larissa Dillon MD Primary Care Provider Encounter Details Date Type Department Care Team (Late st Contact Info) Description 02/28/2024 Documentation Only [facility] [address] [place] [address] Marc Sidhu DO [address] [facility] [place] [address] Social History Tobacco Use Types [...] Visit [facility] [address] [place] [address] Marc Sidhu DO [address] [facility] [place] [address] documented as of this encounter Visit Diagnoses Not on filedocumented in this encounter Care Teams Roller Mill Operator Relationship Specialty Start Date End Date Larissa Dillon MD [address] [address] [place] [address] PCP - General 12/26/18 documented as of this encounter
--- OUTSIDE RECORDS SUMMARY | 2024-05-22 13:39 | XMS_ITS | Encounter Summary ---
Author Organization [facility] Address [address] [place] [address] Phone Care Team Providers Care Churn Driller Name Role Phone Larissa Dillon MD Primary Care Provider Encounter Details Date Type Department Care Team (Late st Contact Info) Description 04/19/2023 Documentation Only [facility] [address] [facility] [place] [address] Marc Sidhu DO [address] [facility] [place] [address] Social History Tobacco Use Types [...] Visit [facility] [address] [facility] [place] [address] Marc Sidhu DO [address] [facility] [place] [address] documented as of this encounter Visit Diagnoses Not on filedocumented in this encounter Care Teams Churn Driller Relationship Specialty Start Date End Date Larissa Dillon MD [address] [facility] [facility] [address] [place] [address] PCP - General 12/26/18 documented as of this encounter
--- OUTSIDE RECORDS SUMMARY | 2024-05-22 13:39 | XMS_ITS | Clinical Summary ---
Author Organization [facility] Address [address] [place] [address] Care Team Providers Care Security Controls Assessor Name Role Phone Larissa Dillon MD Primary Care Provid er Allergies No known active allergies Medications Medication Sig Dispensed Refills Start Date End Date Status allopurinol (ZYLOPRIM) 100 MG tablet Take 100 mg by mouth 3 (three) times a day. 0 02/13/2020 Active atorvastatin (LIPITOR) tablet 80 mg Take 80 mg by mouth daily. 0 02/12/2020 Active carvedilol (COREG) 6.25 MG tablet Take 6.25 mg by mouth 2 (two) times a day. 0 01/31/2020 Active COLCRYS 0.6 MG tablet Take 0.6 mg by mouth daily. 0 01/19/2020 Active dorzolamide-timolol (COSOPT) 22.3-6.8 MG/ML ophthalmic solution INSTILL 1 DROP IN RIGHT EYE TWICE A DAY 0 03/31/2020 Active gabapentin (NEURONTIN) 300 MG capsule Take 900 mg by mouth 2 (two) times a day. 0 03/02/2020 Active HYSINGLA ER 40 MG T24A Take 1 tablet by mouth daily. 0 03/31/2020 Active imipramine (TOFRANIL) 50 MG tablet 0 04/05/2020 Active ketoconazole (NIZORAL) 2 % shampoo USE DIRECTED WHEN NEEDED ONCE DAILY 0 03/17/2020 Active latanoprost (XALATAN) 0.005 % ophthalmic solution INSTILL 1 DROP INTO RIGHT EYE EVERY DAY 0 02/11/2020 Active lisinopril (PRINIVIL,ZESTRIL) tablet 5 mg Take 5 mg by mouth daily. 0 01/15/2020 Active oxyCODONE (ROXICODONE) 5 MG immediate release tablet Take 5 mg by mouth every 8 (eight) hours as needed. for pain 0 03/17/2020 Active spironolactone (ALDACTONE) tablet 25 mg Take 25 mg by mouth daily. 0 03/18/2020 Active testosterone cypionate (DEPO-TESTOSTERONE CYPIONATE) injection 200 mg/mL INJECT 0.2ML ONCE A WEEK FOR 4 WEEKS 0 02/20/2020 Active B-D TB SYRINGE 1CC/25GX5/8 25G X 5/8 1 ML MISC DIRECTED 0 02/20/2020 Active oxyCODONE-acetaminoph en (PERCOCET) 5-325 MG per tablet Take 1 tablet by mouth every 4 (four) hours as needed for pain. 12 tablet 0 07/27/2022 Active methylPREDNISolone (MEDROL DOSEPACK) 4 MG tablet follow package directions 21 tablet 0 08/06/2022 Active ibuprofen 800 MG tablet Take 1 tablet (800 mg total) by mouth every 8 (eight) hours as needed for pain for up to 15 doses. 15 tablet 0 05/10/2023 Active acetaminophen (TYLENOL) 325 MG tablet Take 3 tablets (975 mg total) by mouth every 8 (eight) hours as needed for pain for up to 15 doses. 15 tablet 0 05/10/2023 Active lidocaine (LIDODERM) 5 % Place 1 patch onto the skin daily. Remove & Discard patch within 12 hours or as directed by MD 30 patch 0 05/10/2023 Active ondansetron (ZOFRAN-ODT) 4 MG disintegrating tablet Take 1 tablet (4 mg total) by mouth every 8 (eight) hours as needed for nausea. 15 tablet 0 11/10/2023 Active Active Problems No known active problems Family History Medical History Relation Name Comments Cancer Brother Clotting disorder Brother Cancer Father Cancer Mother Relation Name Status Comments Brother Father Mother Social History Tobacco Use Types Packs/Day Years Used Date Smoking Tobacco: Never Smokeless Tobacco: Never Tobacco Cessation:Counseling Given: Not Answered Alcohol Use Standard Drinks/Week Comments No 0 (1 standard drink = 0.6 oz pur e alcohol) Sex and Gender Information Value Date Recorded Sex Assigned at Male 08/06/2022 11:41 AM EDT Gender Identity Not on file Sexual Orientation Not on file Job Start Date Occupation Industry Not on file Not on file Not on file Last Filed Vital Signs Vital Sign Reading Time Taken Comments Blood Pressure 171/93 11/10/2023 4:30 PM EDT Pulse 109 11/10/2023 4:30 PM EDT Temperature 36.7 ??C (98 ??F) 11/10/2023 4:30 PM EDT Respiratory Rate 20 11/10/2023 4:30 PM EDT Oxygen Saturation 95% 11/10/2023 4:30 PM EDT Inhaled Oxygen Concentration - - Weight 99.8 kg (220 lb) 11/10/2023 9:12 AM EDT Height 185.4 cm (6' 1 ) 11/10/2023 9:12 AM EDT Body Mass Index 29.03 11/10/2023 9:12 AM EDT Plan of Treatment Health Maintenance Due Date Last Done Comments Hepatitis C Screening 1950 Depression Screening 1960 Preventative Health Evaluation 1966 Colon Cancer Screening (Colonoscopy) 1993 Fall Risk Assessment 2013 RSV Adult > 60+ Yrs or (1 - 1-dose 75+ series) 10/10/2023 COVID-19 Vaccine (2 - season) 2023 07/24/2021 Influenza Vaccine (#1) 2023 2, 12/09/2020, 10/11/2019, Additional history exists DTap / Tdap / Td (2 - Td or Tdap) 08/14/2027 08/13/2017 Shingrix-Zoster Vaccine Completed 12/02/2017, 08/15 Pneumococcal Vaccine Completed 12/08/2017, 12/09/2016, 11/06/2015, Additional history exists Hepatitis B Vaccines Aged Out No long er eligible based on patient's age to complete this topic RSV Ped < 20 months Aged Out No longe r eligible based on patient's age to complete this topic Care Teams Security Controls Assessor Relationship Specialty Start Date End Date Larissa Dillon MD [address] [place] [address] Drive [address] [place] [address] PCP - General Gastroenterology 04/08/20
--- OUTSIDE RECORDS SUMMARY | 2024-05-22 13:39 | XMS_ITS | Clinical Summary ---
Author Organization [facility] Address [address] [place] [address] Care Team Providers Care Stain Remover Name Role Phone Unavailable Primary Care Provider Unavailabl e Social History Tobacco Use Types Packs/Day Years Used Date Smoking Tobacco: Never Assessed Sex and Gender Information Value Date Recorded Sex Assigned at Not on file Gender Identity Not on file Sexual Orientation Not on file Plan of Treatment Health Maintenance Due Date Last Done Comments Hepatitis C Virus Screening 1950 DTaP/Tdap/Td Vaccines (1 - Tdap) 10/10/1967 Pneumococcal Vaccines 50+ (1 of 1 - PCV) 1998 Zoster (Shingles) Vaccine (1 of 2) 1998 RSV Vaccine 60 years and older and Patients (1 - 1-dose 75+ series) 10/10/2023 COVID-19 Vaccine (2023- season) 2023 11/17/2022, 07/24/2021, 12/15/2020, Additional history exists Hepatitis B Vaccines Aged Out No long er eligible based on patient's age to complete this topic
--- OUTSIDE RECORDS SUMMARY | 2024-05-22 13:39 | XMS_ITS | Encounter Summary ---
Author Organization [facility] Address [address] [place] [address] Phone Care Team Providers Care Bobbin Winder Name Role Phone Larissa Dillon MD Primary Care Provider Encounter Details Date Type Department Care Team (Late st Contact Info) Description 02/28/2024 Documentation Only [facility] [address] [place] [place] [address] Marc Sidhu DO [address] [place] [address] Social History Tobacco Use Types [...] Visit [facility] [address] [place] [address] Marc Sidhu DO [address] [place] [address] documented as of this encounter Visit Diagnoses Not on filedocumented in this encounter Care Teams Bobbin Winder Relationship Specialty Start Date End Date Larissa Dillon MD [address] [place] [address] PCP - General 12/26/18 documented as of this encounter
--- OUTSIDE RECORDS SUMMARY | 2024-05-22 13:39 | XMS_ITS | Encounter Summary ---
Author Organization [facility] Address [address] [place] [address] Phone Care Team Providers Care Bpm Solution Architect Name Role Phone Larissa Dillon MD Primary Care Provider Encounter Details Date Type Department Care Team (Late st Contact Info) Description 08/31/2023 Documentation Only [facility] [address] [place] [address] [address]y [address] [place] [phone] Social History Tobacco Use Types Packs/Day [...] Visit [facility] [address] [place] [address] Marc Sidhu [address] [place] [address] documented as of this encounter Visit Diagnoses Not on filedocumented in this encounter Care Teams Bpm Solution Architect Relationship Specialty Start Date End Date Larissa Dillon MD [address] [place] [address] PCP - General 12/26/18 documented as of this encounter
--- OUTSIDE RECORDS SUMMARY | 2024-05-22 13:39 | XMS_ITS | Continuity of Care Document ---
Author Organization [facility] [address] [place] [address] Phone [phone] Care Team Providers Care Epic Trainer Name Role Phone Larissa Dillon M.D. Care Team Informati on Layout Designer [phone] Problems Active Problems Provider Date Adenocarcinoma of prostate Larissa pinto M.D. Onset: 03/19/2022 Essential hypertension Girma Brennan Onset: 03/19/2022 Multinodular goiter Larissa Dillon M.D. Onset: 03/19/2022 Dyslipidemia Larissa Dillon M.D. Ons et: 03/19/2022 Chronic back pain Larissa Dillon M.D. O nset: 03/19/2022 Posttraumatic stress disorder Larissa perez M.D. Onset: 03/19/2022 Anxiety Larissa Dillon M.D. Ons et: 03/19/2022 Depressive disorder Larissa Dillon M.D. Onset: 03/19/2022 Erectile dysfunction Lorene Brennan Onset: 03/19/2022 Glaucoma Larissa Dillon M.D. Ons et: 03/19/2022 Basal cell carcinoma of skin Larissa pablo M.D. Onset: 03/19/2022 Coronary atherosclerosis Larissa Dillon M.D. Onset: 03/19/2022 Osteoarthritis Larissa Dillon M.D. Ons et: 03/19/2022 Gout Larissa Dillon M.D. Ons et: 03/19/2022 Mixed sleep apnea Larissa Dillon M.D. O nset: 03/19/2022 Carpal tunnel syndrome Girma Brennan Onset: 03/19/2022 Steatohepatitis Larissa Dillon M.D. Ons et: 03/19/2022 Spontaneous pneumothorax Larissa Dillon M.D. Onset: 03/19/2022 Mild cognitive disorder Larissa Dillon M.D. Onset: 03/19/2022 Orthostatic hypotension Larissa Dillon M.D. Onset: 03/19/2022 Lumbar spondylosis Larissa Dillon M.D. Onset: 03/19/2022 History of non-ST segment el evation myocardial infarction Larissa Dillon M.D. Onset: 03/19/2022 Left ventricular hypertrophy Larissa pablo M.D. Onset: 03/19/2022 Chronic anemia Larissa Dillon M.D. Ons et: 03/19/2022 Hypogonadotropic hypogonadism Larissa perez M.D. Onset: 03/19/2022 Chronic kidney disease Girma Brennan Onset: 03/19/2022 Chronic kidney disease stage 2 Larissa greene M.D. Onset: 06/24/2023 Pathological fracture of vertebra Larissa Mars M.D. 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 05/17/2024 Iywaweq700ld/1.17ML Soln Prefill Syringe inject 2 syringes under the skin once every month for a total dose of 210 mg 7.02ml Larissa Dillon M.D. 04/26/2024 Nrpibptsykg1yr Tablets Dispers 1 tablet by mouth every 8 hours as needed for nausea 30tabs Larissa Dillon M.D. 11/21/2023 Potassium Chloride IY34Yan Tablets ER Take 2 tablets with furosemide 3 x week Larissa Dillon M.D. 06/30/2022 Vitamin C3989qj Tablets 1 by mouth twice daily 180tabs Larissa Dillon M.D. 12/18/2021 Duloxetine RMQ25wh Caps Part Take 1 Capsule By Mouth Every Day 90elvia Dillon M.D. 11/27/2021 Amlodipine Peifarrp6dr Tablets 1 by mouth every day Larissa Dillon M.D. 11/27/2021 Khcjfjktsl54.5mg Tablets 1 by mouth twice a day Larissa Dillon M.D. 11/27/2021 Glucosamine Chondroitin 1500 Qzxqhik0803But Capsules 1 by mouth twice a day Larissa Dillon M.D. Aspirin Ec Low Mcji35it Tablets 1 by mouth every day Larissa Dillon M.D. Multivitamin Adults 50+Adlt 50+ Tablets 1 by mouth every day Larissa Dillon M.D. Vitamin Z511670zok Tablets ER 1 by mouth every day Larissa Dillon M.D. Pantoprazole Eqmbms31yx Tablets DR 1 by mouth every day Unknown Ferrous Qiyhbox054(65Fe) mg Tablets 1 by mouth every day Larissa Dillon M.D. Ecoltcsvmt384ls Capsules take 3 tablets by mouth 2 times a day Unknown Donepezil HCL5mg Tablets take 1 tablet by mouth daily. Unknown Modharwtf0hz Tablets 1 by mouth every day Unknown Orrrbinfgol135fm Tablets 2 by mouth every other day alternating with 300 mg Unknown Vitamin P624nog (1000 Ut) Capsules 1 by mouth every day 100elvia Dillon M.D. Vitamin C500mg Chewtabs 1 by mouth twice a day Larissa Dillon M.D. Tylenol Extra Dbjigtzn253uu Tablets 2 by mouth three times a day as needed Larissa Dillon M.D. Nitroglycerin0.4mg Tablets Sub Please See Attached For Detailed Directions Unknown Testosterone Sggwwybpt687jx/ml Solution 0.3 ml q week Dante Lemus Latanoprost0.005% Solution apply one drop to each eye at bedtime. Lc San Atorvastatin Pwmhxiq94rs Tablets Take 1 Tablet By Mouth Every Day Unknown Ktogrlfgulw517zo Tablets Take 1 Tablet By Mouth Every Other Day Alternating With 200 MG Unknown Ijhaqvnpvh04bc Tablets 1 Tablet By Mouth 3 x week Unknown Dorzolamide HCL/Timolol Rhfylme70.3-6.8mg/ml Solution Instill 1 Drop Into Right Eye Twice Daily Lc San History Medications Oxycodone HCL5mg Taba 1 qhs prn 20tabs Larissa Warren M.D. 12/23/2023 - 12/26/2023 Pmmabhkmhqd9gi Tablets Dispers 1 tablet by mouth every 8 hours as needed for nausea 20tabs Larissa sanchez M.D. 06/13/2023 - 11/21/2023 Vital Signs Date Vital Result Comment 04/26/2024 2:37pm BP Systolic 134 mmHg BP Diastolic 70 mmHg Heart Rate 74 /min Height 73 inches 6'1 Weight 208.50 lb BMI (Body Mass Index) 27.5 kg/m2 Results Test Acquired Date Facility Test Result H/L Range Note Hemoglobin A1c 04/26/2024 Inhouse Hemoglobin A1c 5.8 Basic Metabolic Panel (8) 04/26/2024 [facility] Glucose 84 mg/dL 70-99 BUN 12 mg/dL 8-27 Creatinine 0.83 mg/dL 0.76-1.27 eGFR 91 mL/min/1.7 3 >59 BUN/Creatinine Ratio 14 10-24 Sodium 142 mmol/L 134-144 Potassium 3.6 mmol/L 3.5-5.2 Chloride 102 mmol/L 96-106 Carbon Dioxide, Total 25 mmol/L 20-29 Calcium 9.6 mg/dL 8.6-10.2 CBC With Differential/Pl atelet 04/26/2024 [facility] WBC 8.9 x10E3/uL 3.4-10.8 RBC 4.13 x10E6/uL Low 4.14-5.80 Hemoglobin 13.3 g/dL 13.0-17.7 Hematocrit 39.6 % 37.5-51.0 MCV 96 fL 79-97 MCH 32.2 pg 26.6-33.0 MCHC 33.6 g/dL 31.5-35.7 RDW 13.9 % 11.6-15.4 Platelets 178 x10E3/uL 150-450 Neutrophils 57 % Not Estab. Lymphs 22 % Not Estab. Monocytes 10 % Not Estab. Eos 10 % Not Estab. Basos 1 % Not Estab. Immature Cells TNP Neutrophils (Absolute) 5.1 x10E3/uL 1.4-7.0 Lymphs (Absolute) 1.9 x10E3/uL 0.7-3.1 Monocytes(Absol u te) 0.9 x10E3/uL 0.1-0.9 Eos (Absolute) 0.9 x10E3/uL High 0.0-0.4 Baso (Absolute) 0.1 x10E3/uL 0.0-0.2 Immature Granulocytes 0 % Not Estab. Immature Grans (Abs) 0.0 x10E3/uL 0.0-0.1 NRBC TNP Hematology Comments: TNP Glucose Fingerstick 04/26/2024 Inhouse Glucose Fingerstick 104 Calcium 02/10/2024 [facility] Calcium 9.3 mg/dL 8.6-10.2 Albumin 02/10/2024 [facility] Albumin 4.2 g/dL 3.8-4.8 Phosphorus 02/10/2024 [facility] Phosphorus 2.7 mg/dL Low 2.8-4.1 Calcium 01/12/2024 [facility] Calcium <pending> Albumin 01/12/2024 [facility] Albumin <pending> Phosphorus 01/12/2024 [facility] Phosphorus <pending> TSH Rfx on Abnormal to Free T4 01/11/2024 [facility] TSH Rfx on Abnormal to Free T4 0.773 uIU/mL 0.450-4.5 00 PTH, Intact 01/11/2024 [facility] PTH, Intact 44 pg/mL 15-65 Phosphorus 01/11/2024 [facility] Phosphorus 2.3 mg/dL Low 2.8-4.1 Vitamin D, 25-Hydroxy 01/11/2024 [facility] Vitamin D, 25-Hydroxy 47.7 ng/mL 30.0-100. 0 1 Hemoglobin A1c 01/11/2024 [facility] Hemoglobin A1c 5.6 % 4.8-5.6 2 CMP14 01/11/2024 [facility] Glucose 118 mg/dL High 70-99 BUN 6 mg/dL Low 8-27 Creatinine 0.73 mg/dL Low 0.76-1.27 eGFR 95 mL/min/1.7 3 >59 Sodium 146 mmol/L High 134-144 Potassium 4.1 mmol/L 3.5-5.2 Chloride 105 mmol/L 96-106 Carbon Dioxide, Total 25 mmol/L 20-29 Calcium 8.9 mg/dL 8.6-10.2 Protein, Total 5.5 g/dL Low 6.0-8.5 Albumin 3.4 g/dL Low 3.8-4.8 Globulin, Total 2.1 g/dL 1.5-4.5 Bilirubin, Total 0.3 mg/dL 0.0-1 .2 Alkaline Phosphatase 154 IU/L High 44-121 Ast (Sgot) 16 IU/L 0-40 Alt (SGPT) 11 IU/L 0-44 CBC With Differential/Pl atelet 01/11/2024 [facility] WBC 6.8 x10E3/uL 3.4-10.8 3 RBC 3.76 x10E6/uL Low 4.14-5.80 Hemoglobin 11.9 g/dL Low 13.0-17.7 Hematocrit 36.4 % Low 37.5-51.0 MCV 97 fL 79-97 MCH 31.6 pg 26.6-33.0 MCHC 32.7 g/dL 31.5-35.7 RDW 14.4 % 11.6-15.4 Platelets 275 x10E3/uL 150-450 Neutrophils 64 % Not Estab. Lymphs 19 % Not Estab. Monocytes 11 % Not Estab. Eos 5 % Not Estab. Basos 1 % Not Estab. Immature Cells TNP Neutrophils (Absolute) 4.4 x10E3/uL 1.4-7.0 Lymphs (Absolute) 1.3 x10E3/uL 0.7-3.1 Monocytes(Absol u te) 0.8 x10E3/uL 0.1-0.9 Eos (Absolute) 0.3 x10E3/uL 0.0-0.4 Baso (Absolute) 0.1 x10E3/uL 0.0-0.2 Immature Granulocytes 0 % Not Estab. Immature Grans (Abs) 0.0 x10E3/uL 0.0-0.1 NRBC TNP Hematology Comments: TNP Vitamin D, 25-Hydroxy 12/23/2023 [facility] Vitamin D, 25-Hydroxy <pending> PTH, Intact 12/23/2023 [facility] PTH, Intact <pending> Phosphorus 12/23/2023 [facility] Phosphorus <pending> TSH RFX On Abnormal To Free T4 12/23/2023 [facility] TSH RFX On Abnormal To Free T4 <pending> Glucose Fingerstick 12/23/2023 Inhouse Glucose Fingerstick 95 Basic Metabolic Panel (8) 11/24/2023 [facility] Glucose 117 mg/dL High 70-99 BUN 22 mg/dL 8-27 Creatinine 1.51 mg/dL High 0.76-1.27 eGFR 48 mL/min/1.7 3 Low >59 BUN/Creatinine Ratio 15 10-24 Sodium 138 mmol/L 134-144 Potassium 3.5 mmol/L 3.5-5.2 Chloride 99 mmol/L 96-106 Carbon Dioxide, Total 21 mmol/L 20-29 Calcium 8.8 mg/dL 8.6-10.2 Hemoglobin A1c 06/22/2023 Inhouse Hemoglobin A1c 6.4% TSH With Reflex To FT4 06/30/2022 [facility] TSH With Reflex To FT4 1.29 uIU/mL (0.4-4.2) 1 Vitamin D deficiency has been defined by the [place] of [employer] and an Endocrine Society practice guideline as a level of serum 25-OH vitamin D less than 20 ng/mL (1,2). The Endocrine Society went on to further define vitamin D insufficiency as a level between 21 and 29 ng/mL (2). 1. IOM ([place] of [employer]). 2010. Dietary reference intakes for calcium and D. [place]: The National Academies Press. 2. Mohan MF, Chance NC, Isaias TORREZ, et al. Evaluation, treatment, and prevention of vitamin D deficiency: an Endocrine Society clinical practice guideline. JCEM. 2010; 96(7):1911-30. 2 Prediabetes: 5.7 - 6 .4 Diabetes: >6.4 Glycemic control for adults with diabetes: <7.0 3 Effective January 23, 2024 profile [id number] WBC will be made non-orderable as a stand-alone order code. Procedures Date Code Description Status 04/26/2024 06764 Collection Of Venous Blood B y Venipuncture Completed 06/30/2022 22830 Collection Of Venous Blood B y Venipuncture Completed 05/04/2022 G0180 Physician Certification Serv ices, Per Certification Period Completed Medical Devices Description No Information Available Encounters Type Date Location Provider Dx Diagnosis Office Visit 02/28/2024 10:56a Main Office Larissa Dillon M.D. I10 Essential (primary) hypertension N18.30 Chronic kidney disea se, stage 3 unspecified Assessments Date Code Description Provider 04/26/2024 R73.03 Prediabetes Larissa Gleason M.D. 04/26/2024 D50.9 Iron deficiency anemia, unsp ecified Larissa Dillon M.D. 04/26/2024 I10 Essential (primary) hyperten krissy Larissa Dillon M.D. 04/26/2024 N18.2 Chronic kidney d isease, stage 2 (mild) Larissa Dillon M.D. 04/26/2024 M81.0 Age-related oste oporosis without current pathological fracture Larissa Dillon M.D. 04/26/2024 I25.10 Atherosclerotic heart disease of inupiat coronary artery without angina pectoris Larissa Dillon M.D. 04/26/2024 M15.9 Polyosteoarthritis, unspecif ied Larissa Dillon M.D. 04/26/2024 E04.2 Nontoxic multinodular goiter Larissa Dillon M.D. 04/26/2024 G31.84 Mild cognitive disorder NOS Larissa Dillon M.D. 04/26/2024 G47.33 Obstructive slee p apnea (adult) (pediatric) Larissa Dillon M.D. 04/26/2024 Z87.310 Personal history of (healed) osteoporosis fracture Larissa Dillon M.D. 04/26/2024 M47.896 Other spondylosis, lumbar re ariana Dillon M.D. Plan of Treatment Future Appointment(s):* 09/07/2024 2:30 pm - Larissa Dillon M.D. at Main Office 04/26/2024 - Larissa Dillon M.D.* R73.03 Prediabetes * D50.9 Iron deficiency anemia, unspecified * I10 Essential (primary) hypertension * N18.2 Chronic kidney disease, stage 2 (mild) * M81.0 Age-related osteoporosis without current pathological fracture * I25.10 Atherosclerotic heart disease of inupiat coronary artery without angina pectoris * M15.9 Polyosteoarthritis, unspecified * E04.2 Nontoxic multinodular goiter * G31.84 Mild cognitive disorder NOS * G47.33 Obstructive sleep apnea (adult) (pediatric) * Z87.310 Personal history of (healed) osteoporosis fracture * M47.896 Other spondylosis, lumbar region * Functional Status Description No Information Available Mental Status Description No Information Available Referrals Refer to Reason for Referral Status Appt Deuce e [facility] Psychiatric OCD Pat ient Declined 09/23/[address] [place] [address] [phone]
== END 2024-05-22 12:30 | disposition home or self-care (01) ==
LOC: HO.HUSH 11:17
PROVIDERS: PCP Internal Medicine Endocrinology, Diabetes & Metabolism; Visit Provider Urology
DX: E29.1 Testicular hypofunction (principal); C61 Malignant neoplasm of prostate; N52.31 Erectile dysfunction following radical prostatectomy
CPT/HCPCS: 99213; G2211

== ENCOUNTER → 2024-05-22 11:17 | Outpatient (BNVA) | payer MEDICARE, OTHER, SELFPAY | PROVIDERS: PCP Internal Medicine Endocrinology, Diabetes & Metabolism; Visit Provider Urology | DX: E29.1 Testicular hypofunction (principal); C61 Malignant neoplasm of prostate; N52.31 Erectile dysfunction following radical prostatectomy | CPT/HCPCS: 99212 ==

== ENCOUNTER 2025-01-03 09:01 | Outpatient (AMB) | payer MEDICARE, OTHER, SELFPAY ==
--- OUTSIDE RECORDS SUMMARY | 2025-01-01 11:15 | XMS_ITS | Encounter Summary ---
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 Name Role Phone Unavailable Primary Care Provider Unavailabl e Reason for Visit * Reason Comments Wound Care Encounter Details Date Type Department Care Team (Late st Contact Info) Description 01/01/2025 11:15 AM EST Office Visit [facility] [place] [address] [place] [address] Melinda Bhat, HARLEY [address] [place] [address] Pressure injury of back, stage 3 (CMS/HCC V24, CMS/HCC V28) (Primary Dx) Social History Tobacco Use Types Packs/Day Years [...] Orientation Straight 12/22/2023 1: 20 PM EDT documented as of this encounter Last Filed Vital Signs Vital Sign Reading Time Taken Comments Blood Pressure 169/81 01/01/2025 11:00 AM EST Patient took blood pressure meds 30 minutes ago. Asymptomatic. Pulse 74 01/01/2025 11:00 AM EST Temperature 36.9 C (98.5 F) 01/01/2025 11:00 AM EST Respiratory Rate 16 01/01/2025 11:0 0 AM EST Oxygen Saturation 98% 01/01/2025 11: 00 AM EST Inhaled Oxygen Concentration - - Weight - - Height - - Body Mass Index - - documented in this encounter Progress Notes * Pablo Martin RN - 01/01/2025 11:15 AM EST PHYSICIAN ORDERS and applied as treatment in wound care center at today's visit. Provider Order: Patient to return to office for Nurse visit to change dressings as needed. Date of 1950 Go to ER if present with fever, shaking, chills, increased redness, or excess drainage. If you have any questions or concerns, please contact the wound center at Dept: [phone] Additional tests ordered today: 12/24/24: placed order for wound vac [facility]: Fax orders to Home Health Change treatment to include Triad to periwound and primary dressing to Santyl Hand Hygiene: (W)sony hands before and after wound care. Call Wound Center at Dept: [phone] you have signs and symptoms of infection such as fever, chills, unusual or increased drainage, increasing odor, or unusual redness. WOUND #1 (Back) 3x per week by VNA Location of wound #1: Back Dressing Change Frequency: three times weekly Cleanse wound with: Normal saline NPWT White foam pack at 12 o'clock Changed 01/01/25 Type of Wound Vac:: Genadyne Constant pressure amount 150mmHG Sponge/ Dressing type: Hybrid foam(peel and place) please order White Foam: 1 Quantity of sponges: 1 Hybrid foam dressing 1 White foam wick to 12 o'clock tunnel Canister changed = NA Notes: If the vac is in the off position for greater than 2 hours, remove the wound vac and foam. Place moist gauze into wound bed. Then cover with dry dressing to cover wound bed. Call wound center or Home Care Agency. Off-Loading: Off Loading: Keep pressure off affected area as much as possible. Dancer pads recommended Education provided at today visit Diet: Increase protein intake Zinc 220mg daily to assist in wound healing. Vitamin C * Melinda Bhat NP - 01/01/2025 11:15 AM EST Images from the original note were not included. Office Visit Visit Date: 01/01/2025 Patient Name: J Carlos Munguia Date of : 1950 PCP: No primary care provider on file. HPI: 74-year-old male with history of hypertension, gout, S/P SC presents for follow-up evaluation and management of mid lower back ulceration. He has tolerated his dressing changes well. Awaiting closure of his back wound for right knee replacement. He is here today for VAC application. Denies feve r/chills Medical History[1] Problem List[2] Medications Ordered Prior to Encounter[3] ROS Review of Systems Constitutional: Negative. HENT: Negative. Respiratory: Negative. Cardiovascular: Negative. Gastrointestinal: Negative. Skin: Positive for wound. Psychiatric/Behavioral: Negative. Vital Signs: Visit Vitals BP (!) 169/81 Comment: Patient took blood pressure meds 30 minutes ago. Asymptomatic. Pulse 74 Temp 36.9 ??C (98.5 ??F) Resp 16 SpO2 98% Smoking Status Never PHYSICAL EXAM Physical Exam Constitutional: Appearance: Normal appearance. HENT: Head: Normocephalic and atraumatic. Cardiovascular: Rate and Rhythm: Normal rate. Pulmonary: Effort: Pulmonary effort is normal. Abdominal: Palpations: Abdomen is soft. Musculoskeletal: General: Normal range of motion. Skin: General: Skin is warm and dry. Findings: Wound present. Comments: Full-thickness wound of the mid back with tunneling extending to 6.9 cm at 12:00. No advancing erythema, streaking or purulence noted. Neurological: Mental Status: He is alert. Psychiatric: Mood and Affect: Mood normal. Behavior: Behavior normal. Wound: Chronic pressure wound of the mid back stable and without signs of infection. VAC therapy tobegin today. WOUND ASSESSMENT If photograph of wound not visible on this note, please check under Media tab. Wound Pressure Injury 09/03/24 Back Mid (Active) Wound Image 12/13/24 1318 Wound Bed Tissue Assessment Red 01/01/25 1100 Ramonita-Wound Assessment Erythematous 12/13/24 1300 Shape Irregular 01/01/25 1100 Wound Length (cm) 1.5 cm 01/01/25 1100 Wound Width (cm) 0.9 cm 01/01/25 1100 Wound Surface Area (cm^2) 1.06 cm^2 01/01/25 1100 Wound Depth (cm) 0.5 cm 01/01/25 1100 Wound Volume (cm^3) 0.353 cm^3 01/01/25 1100 Wound Healing % 75 01/01/25 1100 Drainage Description Serosanguineous 01/01/25 1100 Drainage Amount Moderate 01/01/25 1100 Treatments Cleansed;Site care 01/01/25 1100 Dressing Changed Changed 10/15/24 0900 Dressing Status Shadow 10/15/24 0900 Wound Bed Granulation (%) 90 % 01/01/25 1100 Wound Bed Slough (%) 10 % 01/01/25 1100 Tunneling 1.8 cm 12/13/24 1300 Tunneling Clock Position of Wound 12 o'clock 12/13/24 1300 Undermining 6.9 cm 01/01/25 1100 Underming Start Clock Position of Wound 12 o'clock 01/01/25 1100 Underming End Clock Position of Wound 12 o'clock 01/01/25 1100 Edges Well-defined edges 01/01/25 1100 Non-staged Wound Description Full thickness 01/01/25 1100 Pertinent Labs: No results found for: ALB , WBC , PREALBUMIN , HEMOGLOBIN A1C , POCT GLUCOSE Debridement Note: Procedures PLAN OF CARE 1. Pressure injury of back, stage 3 (CMS/HCC V24, CMS/[facility] V28) Provider Orders: Patient Instructions PHYSICIAN ORDERS and applied as treatment in wound care center at today's visit. Provider Order: Patient to return to office for Nurse visit to change dressings as needed. Date of 1950 Go to ER if present with fever, shaking, chills, increased redness, or excess drainage. If you have any questions or concerns, please contact the wound center at Dept: [phone] Additional tests ordered today: 12/24/24: placed order for wound vac Home Health: [facility]: Fax orders to Home Health Change treatment to include Triad to periwound and primary dressing to Santyl Hand Hygiene: (W)sony hands before and after wound care. Call Wound Center at Dept: [phone] you have signs and symptoms of infection such as fever, chills, unusual or increased drainage, increasing odor, or unusual redness. WOUND #1 (Back) 3x per week by VNA Location of wound #1: Back Dressing Change Frequency: three times weekly Cleanse wound with: Normal saline NPWT White foam pack at 12 o'clock Changed 01/01/25 Type of Wound Vac:: Genadyne Constant pressure amount 150mmHG Sponge/ Dressing type: Hybrid foam(peel and place) please order White Foam: 1 Quantity of sponges: 1 Hybrid foam dressing 1 White foam wick to 12 o'clock tunnel Canister changed = NA Notes: If the vac is in the off position for greater than 2 hours, remove the wound vac and foam. Place moist gauze into wound bed. Then cover with dry dressing to cover wound bed. Call wound center or Home Care Agency. Off-Loading: Off Loading: Keep pressure off affected area as much as possible. Dancer pads recommended Education provided at today visit Diet: Increase protein intake Zinc 220mg daily to assist in wound healing. Vitamin C Goals for the wound(s): -Healing goal is a reduction in wound volume of 30% at 4 weeks, 50% at 8 weeks, 75% at 12 weeks, and 100% at 16 weeks. Will continually reassess and adjust the treatment strategy if not on the healing curve. Potential to heal: Good potential to Heal Plan: Wound plan of care as above. All questions were answered to his satisfaction. He was counseled regarding my impressions, instructions for management, and the importance of compliance with treatment. The wound will be continually assessed for the presence of infection. If infection is suspected, appropriate intervention or referral to infection disease specialist will be considered. The patient has been educated concerning the need for increased protein in his diet for wound healing. It is also recommended that he work with his PCP to optimize his metabolic status and glycemic control as appropriate. Follow up in about 1 week (around 01/08/2025), or if symptoms worsen or fail to improve. 01/01/2025 12:37 PM RUY Bhat NP [1] Past Medical History: Diagnosis Date Angina pectoris ([facility] V24) DX:Angina pectoris (HCC) Anxiety state DX:Anxiety state Cancer ([facility] V24, [facility] V28) DX:Cancer (HCC) Cataract DX:Cataract Depressive disorder DX:Depressive disorder Essential hypertension DX:Essential hypertension Glaucoma DX:Glaucoma Gout DX:Gout Heart attack (CMS/HCC V24, [facility] V28) DX:Heart attack (HCC) Heart attack ([facility] V24, [facility] V28) 2017 DX:Heart attack (HCC) Hypertension DX:Hypertension [2] Patient Active Problem List Diagnosis Pressure injury of back, stage 3 ([facility] V24, [facility] V28) [3] Current Outpatient Medications on File Prior to Visit Medication Sig Dispense Refill acetaminophen (TYLENOL) 500 mg tablet Take 500 mg by mouth every 6 (six) hours. Indications: pain allopurinoL (ZYLOPRIM) 300 mg tablet Take 300 mg by mouth every other day. Indications: treatment to prevent acute gout attack amLODIPine (NORVASC) 5 mg tablet Take 5 mg by mouth 1 (one) time each day. Indications: high blood pressure ascorbic acid (VITAMIN C) 500 mg tablet Take 500 mg by mouth 1 (one) time each day. Indications: inadequate vitamin C aspirin 81 mg EC tablet Take 81 mg by mouth 1 (one) time each day. Indications: treatment to prevent a heart attack atorvastatin (LIPITOR) 80 mg tablet Take 80 mg by mouth at bedtime. Indications: high cholesterol brimonidine (ALPHAGAN) 0.2 % ophthalmic solution Administer 1 drop into the right eye 2 (two) timesa day. Indications: increased pressure in the eye, wide- angle glaucoma CALCIUM CITRATE ORAL Take 500 mg by mouth 2 (two) times a day. Indications: Dietary calcium deficiency carvediloL (COREG) 12.5 mg tablet Take 12.5 mg by mouth 2 (two) times a day with meals. Indications: high blood pressure cholecalciferol (VITAMIN D-3) 25 mcg (1,000 unit) tablet Take 1,000 Units by mouth 1 (one) time each day. Indications: prevention of vitamin D deficiency donepeziL (ARICEPT) 5 mg tablet Take 5 mg by mouth at bedtime. Indications: mild to moderate Alzheimer's type dementia dorzolamide HCl/timolol maleat (DORZOLAMIDE-TIMOLOL OPHT) Administer 1 drop into the right eye 2 (two) times a day. Indications: glaucoma, an increased pressure in the eye DULoxetine (CYMBALTA) [address] capsule Take 30 mg by mouth 1 (one) time each day. Indications: major depressive disorder ferrous sulfate 325 mg (65 mg elemental iron) tablet Take 325 mg by mouth 1 (one) time each day. Indications: anemia from inadequate iron folic acid (FOLVITE) 1 mg tablet Take 1 mg by mouth 1 (one) time each day. Indications: inadequate folic acid furosemide (LASIX) 40 mg tablet Take 40 mg by mouth 3 (three) times a week. ON Tuesday Indications: visible water retention gabapentin (NEURONTIN) 300 mg capsule Take 900 mg by mouth 1 (one) time each day. 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 Indications: vitamin deficiency glucosamine HCl 1,500 mg tablet Take 1,500 mg by mouth 1 (one) time each day. Indications: vitamin deficiency latanoprost (XALATAN) 0.005 % ophthalmic solution Administer 1 drop into the right eye at bedtime. Indications: wide-angle glaucoma METHOTREXATE ORAL Take 7.5 mg by mouth 1 (one) time per week. on tuesday Indications: pain associated with arthritis multivitamine, geriatric, (CENTRUM SILVER) tablet Take 1 tablet by mouth 1 (one) time each day. Indications: vitamin deficiency nitroglycerin (NITROSTAT) 0.[address] 0.4 mg under the tongue every 5 (five) minutes if needed for chest pain. Indications: acute attack of angina pantoprazole (PROTONIX) 40 mg EC tablet Take 1 tablet (40 mg total) by mouth 1 (one) time each day.90 tablet 1 polyethylene glycol (MIRALAX) 17 gram packet Take 17 g by mouth 1 (one) time each day. Indications:emptying of the bowel potassium chloride (KLOR-CON M20) 20 mEq CR tablet Take 40 mEq by mouth 3 (three) times a week. on tuesday and tuesday Indications: prevention of low potassium in the blood senna (SENOKOT) 8.6 mg tablet Take 1 tablet by mouth 2 (two) times a day. Indications: constipation tadalafiL (CIALIS) 5 mg tablet Take 5 mg by mouth 1 (one) time each day. Indications: enlarged prostate with urination problem testosterone cypionate (DEPOTESTOTERONE CYPIONATE) 200 mg/mL injection Inject 200 mg into the shoulder, thigh, or buttocks 1 (one) time per week. give 0.3ml on tuesday Indications: deficiency of a substance that promotes masculinization thiamine (VITAMIN B-1) 100 mg tablet Take 100 mg by mouth 2 (two) times a day. Indications: deficiency in thiamine or vitamin B1 No current facility-administered medications on file prior to visit. documented in this encounter Plan of Treatment Upcoming Encounters Date Type Department Care Team (Late st Contact Info) Description 01/07/2025 10:00 AM EST Office Visit [facility] [place] [address] [place] [id number] Melinda Bhat NP [address] [place] [address] 01/14/2025 10:00 AM EST Office Visit [facility] [place] [address] [place] [id number] Melinda Bhat NP [address] [place], [place] [id number] documented as of this encounter Goals Goal Patient Goal Type Associated Problems Recent Progress Patient-Stated? Author Decrease Wound Volume by X% by date (in notes) Care Plan Impaired Tissue No Pablo Martin RN Patient and Caregiver Understand Wound Care Education Care Plan Impaired Tissue No Pablo Martin call center operator volume breakdown reduced by X% by week 4 Care Plan Impaired Tissue No Pablo Martin RN Wound volume breakdown reduced by X% by week 8 Care Plan Impaired Tissue No Pablo Martin RN Wound volume breakdown reduced by X% by week 12 Care Plan Impaired Tissue No Pablo Martin RN Note: Wound to heal 80% by week 12 Quit using tobacco (cigarettes, smokeless, etc) Care Plan Education needed on impact of smoking on wound No Pablo Martin RN Reduce tobacco use (cigarettes, smokeless, etc) Care Plan Education needed on impact of smoking on wound No Pablo Martin RN Decrease Wound Volume by X% by date (in notes) Care Plan Education needed on impact of smoking on wound No Pablo Martin RN Patient and Caregiver Understand Wound Care Education Care Plan Education needed related to ulceration/compr omised skin integrity. No Pablo Martin RN documented as of this encounter Visit Diagnoses Diagnosis Pressure injury of back, stage 3 (CMS/[facility] V24, CMS/[facility] V28)- Primary documented in this encounter Additional Health Concerns Active Problems Noted Date Diagnosed Date Impaired Tissue 09/20/2024 Education needed on impact of smoking on wound 0 09/20/2024 Education needed related to ulceration/compromised skin integrity. 09/20/2024 documented as of this encounter
--- NOTE | 2025-01-03 09:22 | A.OFFVIS_ITS ---
Intake Visit Reasons: 6m/labs Intake Note: Patient is present for 6M/LABS Urology Medication:TESTOSTERONE,TADALAFIL,ALLOPURINOL Antibiotic Allergy:NONE Blood Thinner:NONE Labs done : 12/20/24 : PSA <0.1, Testosterone :29 Nut Tightener Required: No Accompanied by: Spouse Allergies No Known Allergies Allergy (Verified 01/03/25 09:23) HPI Comments Details: J Carlos is a pleasant male. He is a patient of Dr Dillon. He is seen for the following urologic conditions - hypogonadism - prostate cancer Testosterone has been low Has been unable to use hand dexterity to draw up and inject Does better when testosterone is higher We will see if xyosted is covered Bladder is continued to show stabilization with daily tadalafil Does occasionally have episodes where he urinates excessive amounts Labs 04/15 PSA <0.1, T 400, 02/12 <0.1 T 380, 11/14 T 61 <0.1, 05/15 T 870, 12/15 <0.1 T 29 Symptoms remain stable Continue with low-dose testosterone 6 month follow-up lab work Hypogonadism: T at 0.3 cc subcu weekly Wed He presents today for further evaluation and followup of his hypogonadism. Initial symptoms include erectile dysfunction Yes decreased libido Yes change in mood/depression Yes in muscle size/strength Yes increased fatigue/malaise Yes The onset of symptoms has been gradual, over the past few years. Laboratory results baseline, testosterone 85 ng 04/09 , testosterone 570, , PSA < 0.1, 09/06 , testosterone 440, , Hct 42, 03/10 , testosterone 596, Hct 43, 09/07 T 94 04/11 T 713 PSA < 0.1 CBC normal, 10/09 T 1200 PSA < 0.1, 02/08 T 700 08/10 T 500, 02/09 T850, 08/11 T 105, 04/13 T 399 PSA <0.1, 10/12 T 734 <0.1 39 Current therapy includes injectable exogenous testosterone - 0.2cc weekly subcutaneous Diagnosis based on history and laboratory results combined testicular ins ufficiency. Therapeutic plan continue current medication - review in 6m. Prostate cancer: Grade group 3 radical prostatectomy 2008 For ED instructions given for use of MUSE. Can try sildenafil 200 mg. This is the maximum dose. Prescription provided. Prostate cancer was diagnosed 2008 Dr Lemus. Diagnosis was reached by needle biopsy, for elevated PSA, PSA at diagnosis 5.4. The Shaheen grade is 4+3 = 7 at surgery. TNM Classification of Malignant Tumours (TNM) T1c. The D'Sparkle (NCCN) risk category is Intermediate Risk (PSA 10-20, Gl 7, T2). Initial therapy included Primary treatment, Prostatectomy (RRP/Robotic) 2008 , Additional treatment, Observation. Recent labs included a PSA (prostate-specific antigen) 2015, < 0.1 05/07 , a PSA (prostate-specific antigen), < 0.1 03/10 , a PSA (prostate-specific antigen), < 0.1 09/07 , a PSA (prostate-specific antigen), < 0.1 08/10 PSA < 0.1, 02/09 <0.1 - 08/11 <0.1 Therapeutic plan: Continue with surveillance [facility] Medical History (Updated 05/22/24 @ 12:26 by Dante Lemus MD) Gout Hypercholesterolemia Depression Hypogonadism in male Stress incontinence, male HTN (hypertension) Glaucoma Erectile dysfunction after radical prostatectomy Prostate cancer Surgical History History of surgery Review of Systems Const Denies chills and Denies fever(s) Card Reports no additional complaints and Denies syncope Resp Denies cough GI Denies abdominal pain and Denies heartburn Reports as per HPI and Denies change in libido Neuro Denies syncope Psych Denies change in libido Endo Denies change in libido Physical Exam Const General: cooperative, healthy appearing, comfortable and no acute distress Orientation/consciousness: patient oriented x3 HEENT Face and sinus: Yes normal facial exam Mouth: moist mucous membranes Neck Neck: Yes normal visual inspection, Yes full ROM and Yes trachea midline Chest Chest palpation & inspection: normal inspection of the chest Resp Effort & Inspection: normal respiratory effort, able to speak in complete sentences and no respiratory distress GI Inspection: Yes normal to inspection Back/Spine/Pelvis Cervical Spine: normal cervical lordosis Thoracic/Lumbar Spine: thoracic and lumbar spine normal to inspection Skin General skin exam: no rashes or lesions noted Neuro General: patient oriented x3, gait normal, tone normal and moves all extremities Extrem General: Yes normal to inspection and Yes capillary refill normal Assessment & Plan Assessment & Plan (1) Prostate cancer: Code(s): C61 - Malignant neoplasm of prostate Category: Medical (2) Hypogonadism in male: Code(s): E29.1 - Testicular hypofunction Category: Medical Plan Xyosted prescription Orders: Orders Testosterone, Total 5 Months E29.1 - Testicular hypofunction Prostate Specific Antigen 5 Months E29.1 - Testicular hypofunction Medications: New oxycodone Partial Fill upon patient request. 5 mg PO Q8H PRN 20 tabs 0RF pain 20 days E29.1 - Testicular hypofunction, N20.0 - Calculus of kidney Patient Instructions: This note is constructed using voice recognition software. While every effort has been made to ensure accuracy certified nurse practitioner errors may have been included. Imaging studies, laboratory and physical exam results were discussed and reviewed in detail. No major barriers to patient understanding were identified. An opportunity to ask questions regarding the treatment plan was provided. All questions were answered. The patient expressed understanding and agreement with the above treatment plan. The patient is aware they should contact our office by phone for worsening of their current condition or the appearance of new urologic symptoms. Compliance is encouraged with any medications and followup testing that is ordered. It is a privilege to participate in the urologic care of your patient. If you have any questions or concerns regarding treatment for the above conditions, or other urologic issues, please do not hesitate to contact me. The office telephone contact is [phone]. Sincerely, Dr Dante Lemus MD, [facility] - Urology Compassionate Specialist Care for the Genitourinary System Coding Level of Care Code Est Pt Level 3 (42740) Complex EM visit Add On G2211 Diagnoses Prostate cancer C61 Hypogonadism in male E29.1
--- OUTSIDE RECORDS SUMMARY | 2025-01-03 09:47 | XMS_ITS | Encounter Summary ---
Author Organization [facility] Address [address] [address] Phone Care Team Providers Care Bridges Supervisor Name Role Phone Larissa Dillon MD Primary Care Prov ider Larissa Dillon MD Unavailable + Gisela Martinez MD Unavailable Kaela Méndez Unavailable [phone] Reason for Visit * Reason Onset Date Comments Labs 12/10/2024 Encounter Details Date Type Department Care Team ([facility] st Contact Info) Description 12/10/2024 Telephone [facility] Pulmonary, Allergy and Critical Care Medicine [address] [place], [place] [id number] Diann [email or web address] Social History Tobacco Use Types Packs/Day Years Used Date Smoking Tobacco: Never Smokeless Tobacco: Never Alcohol Use Standard Drinks/Week Comments Yes 0 (1 standard drink = 0.6 oz pur e alcohol) 1-2 beers daily Education Answer Date Recorded Are you interested in more education? Not on ye e 06/18/2022 Are you concerned about learning? Not on file 06/18/2022 No 06/18/2022 No 06/18/2022 Digital Access Answer Date Recorded No 07/13/2022 No 07/13/2022 Reliable internet access at home? Not on file 07/13/2022 Device with a working camera? Not on file Sex and Gender Information Value Date Recorded Sex Assigned at Not on file Legal Sex Male 10:37 PM EDT Gender Identity Not on file Sexual Orientation Not on file documented as of this encounter Progress Notes * Rbeeka Stanton CMA - 12/10/2024 4:29 PM EDT Faxed via Surik[employer] to number provided * Diann Gregorio - 12/10/2024 3:18 PM EDT Pt is requesting that lab orders be resent to [facility] located in [place], [place]. Central Support Sybase Developer (Please do not reply to this user; this inbox is not monitored.) Thank you. documented in this encounter Plan of Treatment Upcoming Encounters Date Type Department Care Team (Late st Contact Info) Description 01/04/2025 9:00 AM EST Office Visit [facility] Rheumatology [address] [place] [address] [place] [address] Gisela Martinez MD [address] [place] [address], [address] [place] [address] [email or web address] documented as of this encounter Visit Diagnoses Not on filedocumented in this encounter Care Teams Bridges Supervisor Relationship Specialty Start Date End Date Larissa Dillon MD [address] [place] [address] [place] [address] PCP - General 12/09/16 Larissa Dillon MD [address] [place] [address] [place] [address] Historical LMR Provider 12/11/16 Gisela Martinez MD [address] [place] [address], [address] [place] [address] [email or web address] Historical LMR Provider 12/11/16 Kaela Méndez PA [address] [place] [address] [email or web address] Switchboard And Control Room Operator 06/23/20 documented as of this encounter Additional Source Comments The information contained in this document represents components of the legal health record. It is not the complete legal health record.[facility]
--- OUTSIDE RECORDS SUMMARY | 2025-01-03 09:48 | XMS_ITS | Encounter Summary ---
Author Organization [facility] Address [address] [place] [address] Phone Care Team Providers Care Exhaust Worker Name Role Phone Larissa Dillon MD Primary Care Provider Encounter Details Date Type Department Care Team (Late st Contact Info) Description 08/31/2023 Documentation Only [facility] [address] [place] [address] Destiny Nagy [address] [place] [phone] Social History Tobacco Use Types Packs/Day [...] on file documented as of this encounter Functional Status documented as of this encounter Plan of Treatment Upcoming Encounters Date Type Department Care Team (Late st Contact Info) Description 01/30/2025 4:15 PM EST Office Visit [facility] [address] [place] [address] Marc Sidhu [address] [place] [address] documented as of this encounter Visit Diagnoses Not on filedocumented in this encounter Care Teams Exhaust Worker Relationship Specialty Start Date End Date Larissa Dillon MD [address] [place] [address] [address] [place] [address] PCP - General 12/26/18 documented as of this encounter
--- OUTSIDE RECORDS SUMMARY | 2025-01-03 09:48 | XMS_ITS | Encounter Summary ---
Author Organization [facility] Address [address] [place] [address] Phone Care Team Providers Care Ortho Nurse Name Role Phone Larissa Dillon MD Primary Care Provider Encounter Details Date Type Department Care Team (Late st Contact Info) Description 04/19/2023 Documentation Only [facility] [address] [place] [address] Marc Sidhu DO [address] [place] [address] Social History Tobacco Use Types [...] Visit [facility] [address] [place] [address] Marc Sidhu DO [address] [place] [address] documented as of this encounter Visit Diagnoses Not on filedocumented in this encounter Care Teams Ortho Nurse Relationship Specialty Start Date End Date Larissa Dillon MD [address] [place] [address] [address] [place] [address] PCP - General 12/26/18 documented as of this encounter
--- OUTSIDE RECORDS SUMMARY | 2025-01-03 09:48 | XMS_ITS | Encounter Summary ---
Author Organization [facility] Address [address] [place] [address] Phone Care Team Providers Care Environmental Advisor Name Role Phone Larissa Dillon MD Primary Care Prov ider Larissa Dillon MD Unavailable + Gisela Martinez MD Unavailable [phone] Kaela Méndez Unavailable [phone] Reason for Referral * MRI/CAT Scan - Closed Specialty Diagnoses / Procedures Referred By Doug jacobs Referred To Contact Procedures MRI Outside Upper Extremity (No Interpretation) System, Provider Not In, [place] [address] Referral ID Status Reason Start Date Expiration Date Visits Re quested Visits Authorized [id number] Closed 08/09/2017 08/09/2018 1 1 Encounter Details Date Type Department Care Team (Late st Contact Info) Description 08/09/2017 Ancillary Orders [facility],Outside Imaging [address] [place] [address] System, Provider Not In, [facility] [address] [address] Social History Tobacco Use Types Packs/Day Years Used Date Smoking Tobacco: Never Smokeless Tobacco: Never Alcohol Use Standard Drinks/Week Comments Yes 2 (1 standard drink = 0.6 oz pur e alcohol) Weekly Sex and Gender Information Value Date Recorded Sex Assigned at Not on file Legal Sex Male 10:37 PM EDT Gender Identity Not on file Sexual Orientation Not on file documented as of this encounter Plan of Treatment Upcoming Encounters Date Type Department Care Team (Late st Contact Info) Description 01/04/2025 9:00 AM EST Office Visit [facility] Rheumatology [address] [place] [address] Gisela Martinez MD [address] [place] [address], [address] [place] [address] documented as of this encounter Results * MRI Outside Upper Extremity (No Interpretation) (03/03/2017 12:00 AM EST) Narrative SYSTEMGENERATED, DOCUMENTATION - 08/09/2017 10:36 AM EDT This study is for PACS storage only and not for interpretation. us Provider Not In System PhD IMG OUTSIDE IMAGING W /OUT INTERPRETATION Final Result documented in this encounter Visit Diagnoses Not on filedocumented in this encounter Care Teams Environmental Advisor Relationship Specialty Start Date End Date Larissa Dillon MD [address] [place] [address] [place] [address] PCP - General 12/09/16 Larissa Dillon MD [address] [place] [address] [place] [address] Historical LMR Provider 12/11/16 Gisela Martinez MD [address] [place] [address], [address] [place] [address] Historical LMR Provider 12/11/16 Kaeal Méndez PA [address] [place] [address] [place] [address] [email or web address] 06/23/20 documented as of this encounter Additional Source Comments The information contained in this document represents components of the legal health record. It is not the complete legal health record.[facility]
--- OUTSIDE RECORDS SUMMARY | 2025-01-03 09:48 | XMS_ITS | Clinical Summary ---
Author Organization [facility] Address [address] [place] [address] Care Team Providers Care Car Rental Agent Name Role Phone Unavailable Primary Care Provider Unavailabl e Social History Tobacco Use Types Packs/Day Years Used Date Smoking Tobacco: Never Assessed Sex and Gender Information Value Date Recorded Sex Assigned at Not on file Legal Sex Male 6:09 PM EST Gender Identity Not on file Sexual Orientation Not on file Plan of Treatment Health Maintenance Due Date Last Done Comments Advance Care Planning 1950 Hepatitis C Virus Screening 1950 DTaP/Tdap/Td Vaccines (1 - Tdap) 10/10/1967 Pneumococcal Vaccines 50+ (1 of 1 - PCV) 1998 Zoster (Shingles) Vaccine (1 of 2) 1998 RSV Vaccine 50 years and older and Patients (1 - 1-dose 75+ series) 10/10/2023 COVID-19 Vaccine ( - season) 2024 11/17/2022, 07/24/2021, 12/15/2020, Additional history exists Hepatitis B Vaccines Aged Out No long er eligible based on patient's age to complete this topic
--- OUTSIDE RECORDS SUMMARY | 2025-01-03 09:48 | XMS_ITS | Encounter Summary ---
Author Organization [facility] Address [address] [place] [address] Phone Care Team Providers Care Portrait Artist Name Role Phone Larissa Dillon MD Primary Care Provider Encounter Details Date Type Department Care Team (Late st Contact Info) Description 06/23/2021 Documentation Only [facility] [address] [place] [address] Zara Gongora [address] [place] [phone] Social History Tobacco Use Types Packs/Day [...] documented as of this encounter Functional Status * BP Location Answer Date of Assessment Author Left upper arm 06/24/2021 4:30 PM EDT Irma Sidhu DO * BP Location Answer Date of Assessment Author Left upper arm 06/24/2021 4:30 PM EDT Irma Sidhu DO documented as of this encounter Plan of Treatment Upcoming Encounters Date Type Department Care Team (Late st Contact Info) Description 01/30/2025 4:15 PM EST Office Visit [facility] [address] [place] [address] Marc Sidhu DO [address] [place] [phone] documented as of this encounter Visit Diagnoses Not on filedocumented in this encounter Care Teams Portrait Artist Relationship Specialty Start Date End Date Larissa Dillon MD [address] [place] [address] [address] [place] [address] PCP - General 12/26/18 documented as of this encounter
--- OUTSIDE RECORDS SUMMARY | 2025-01-03 09:48 | XMS_ITS | Clinical Summary ---
Author Organization [address] Address [address] [place] [phone] Care Team Providers Care Filler Sifter Machine Name Role Phone Larissa Dillon MD Primary [...] 10,TDAP once) 1968 Lipid disorder screening 1988 Diabetes screening 1993 Shingles vaccine (Shingrix) (1 of 2 - Shingrix (RZV) 2 Dose Standard Series) 1998 Pneumococcal Vaccine (50+ years) (3 of 3 - PCV20 or PCV21) 11/05/2020 11/06/2015, 12/15/2010 RSV Immunization (1 - 1-dose 75+ series) 10/10/2023 Influenza vaccine 09/21/2024 10/11/2019, , 11/28/2015, Additional history exists Covid-19 vaccine series (2024- season) 2024 Colon cancer screening, Colonoscopy Discontinued Meningococcal B Vaccine Aged Out No l onger eligible based on patient's age to complete this topic Meningococcal Vaccine Aged Out No coleman dolly eligible based on patient's age to complete this topic Insurance MEDICARE HUMANA MEDICARE HUMANA MEDICARE HU[employer] Care Teams Filler Sifter Machine Relationship Specialty Start Date End Date Larissa Dillon MD [address] [place] [address] [place] [address] PCP - General Endocrinology, Diabetes & Metabolism 11/10/23
--- OUTSIDE RECORDS SUMMARY | 2025-01-03 09:48 | XMS_ITS | Clinical Summary ---
Author Organization [facility] [address] [facility] Address [address] [place] [address] Phone Care Team Providers Care Case Loader Operator Name Role Phone Unavailable Primary Care Provider Unavailabl e Allergies No known active allergies Medications pantoprazole (PROTONIX) 40 mg EC tabletIndicatio ns:gastric ulcer Take 1 tablet (40 mg total) by mouth 1 (one) time each day. 90 tablet 1 05/30/19 25 Active polyethylene glycol (MIRALAX) 17 gram packetIndicatio ns:bowel evacuation Take 17 g by mouth 1 (one) time each day. Indications: emptying of the bowel 08/07/19 25 Active senna (SENOKOT) 8.6 mg tabletIndicatio ns:constipation Take 1 tablet by mouth 2 (two) times a day. Indications: constipation 08/07/19 25 Active allopurinoL (ZYLOPRIM) 300 mg tabletIndicatio ns:prevention of acute gout attack Take 300 mg by mouth every other day. Indications: treatment to prevent acute gout attack 08/07/19 25 Active acetaminophen (TYLENOL) 500 mg tabletIndicatio ns:pain Take 500 mg by mouth every 6 (six) hours. Indications: pain 08/07/19 25 Active amLODIPine (NORVASC) 5 mg tabletIndicatio ns:hypertension Take 5 mg by mouth 1 (one) time each day. Indications: high blood pressure 08/07/19 25 Active ascorbic acid (VITAMIN C) 500 mg tabletIndicatio ns:vitamin C deficiency Take 500 mg by mouth 1 (one) time each day. Indications: inadequate vitamin C 08/07/19 25 Active atorvastatin (LIPITOR) 80 mg tabletIndicatio ns:hypercholest erolemia Take 80 mg by mouth at bedtime. Indications: high cholesterol 08/07/19 25 Active CALCIUM CITRATE ORALIndications :Dietary calcium deficiency Take 500 mg by mouth 2 (two) times a day. Indications: Dietary calcium deficiency 08/07/19 25 Active folic acid (FOLVITE) 1 mg tabletIndicatio ns:folate deficiency Take 1 mg by mouth 1 (one) time each day. Indications: inadequate folic acid 08/07/19 25 Active thiamine (VITAMIN B-1) 100 mg tabletIndicatio ns:thiamine deficiency Take 100 mg by mouth 2 (two) times a day. Indications: deficiency in thiamine or vitamin B1 08/08/19 25 Active testosterone cypionate (DEPOTESTOTERON E CYPIONATE) 200 mg/mL injectionIndica tions:androgen deficiency Inject 200 mg into the shoulder, thigh, or buttocks 1 (one) time per week. give 0.3ml on tuesday Indications: deficiency of a substance that promotes masculinization 08/07/19 25 Active tadalafiL (CIALIS) 5 mg tabletIndicatio ns:benign prostatic hyperplasia with lower urinary tract sx Take 5 mg by mouth 1 (one) time each day. Indications: enlarged prostate with urination problem 08/07/19 25 Active potassium chloride (KLOR-CON M20) 20 mEq CR tabletIndicatio ns:hypokalemia prevention Take 40 mEq by mouth 3 (three) times a week. on tuesday and tuesday Indications: prevention of low potassium in the blood 08/08/19 25 Active multivitamine, geriatric, (CENTRUM SILVER) tabletIndicatio ns:vitamin deficiency Take 1 tablet by mouth 1 (one) time each day. Indications: vitamin deficiency 08/07/19 25 Active nitroglycerin (NITROSTAT) 0.4 mg SL tabletIndicatio ns:acute episode of anginal pain Place 0.4 mg under the tongue every 5 (five) minutes if needed for chest pain. Indications: acute attack of angina 08/07/19 25 Active METHOTREXATE ORALIndications :arthritic pain Take 7.5 mg by mouth 1 (one) time per week. on tuesday Indications: pain associated with arthritis 08/07/19 25 Active carvediloL (COREG) 12.5 mg tabletIndicatio ns:hypertension Take 12.5 mg by mouth 2 (two) times a day with meals. Indications: high blood pressure 08/07/19 25 Active latanoprost (XALATAN) 0.005 % ophthalmic solutionIndicat ions:open angle glaucoma Administer 1 drop into the right eye at bedtime. Indications: wide-angle glaucoma 08/08/19 25 Active cholecalciferol (VITAMIN D-3) 25 mcg (1,000 unit) tabletIndicatio ns:prevention of vitamin D deficiency Take 1,000 Units by mouth 1 (one) time each day. Indications: prevention of vitamin D deficiency 08/07/19 25 Active glucosamine HCl 1,500 mg tabletIndicatio ns:vitamin deficiency Take 1,500 mg by mouth 1 (one) time each day. Indications: vitamin deficiency 08/07/19 25 Active furosemide (LASIX) 40 mg tabletIndicatio ns:edema Take 40 mg by mouth 3 (three) times a week. ON Tuesday Indications: visible water retention 08/07/19 25 Active DULoxetine (CYMBALTA) [address] capsuleIndicati ons:major depressive disorder Take 30 mg by mouth 1 (one) time each day. 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 Indications: mild to moderate Alzheimer's type dementia 08/07/19 25 Active glucos sul 2KCl/msm/chond/ C/Mn (GLUCOSAMINE CHONDROITIN ORAL)Indication s:vitamin deficiency Take 1,200 mg by mouth 1 (one) time each day. Indications: vitamin deficiency 08/07/19 25 Active ferrous sulfate 325 mg (65 mg elemental iron) tabletIndicatio ns:iron deficiency anemia Take 325 mg by mouth 1 (one) time each day. Indications: anemia from inadequate iron 08/07/19 25 Active dorzolamide HCl/timolol maleat (DORZOLAMIDE-TI MOLOL OPHT)Indication s:glaucoma Administer 1 drop into the right eye 2 (two) times a day. Indications: glaucoma, an increased pressure in the eye 08/07/19 25 Active gabapentin (NEURONTIN) 300 mg capsuleIndicati ons:postherpeti c neuralgia Take 900 mg by mouth 1 (one) time each day. 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 Indications: treatment to prevent a heart attack 08/16/19 25 Active brimonidine (ALPHAGAN) 0.2 % ophthalmic solutionIndicat ions:ocular hypertension,op en angle glaucoma Administer 1 drop into the right eye 2 (two) times a day. Indications: increased pressure in the eye, wide-angle glaucoma 09/01/19 Active collagenase (SantyL) 250 unit/gram ointment Apply topically 1 (one) time each day. 30 g 2 09/21/19 25 025 Active Problems Problem Noted Date Diagnosed Date Pressure injury of back, stage 3 ([facility] V24, [facility] V28) 09/20/2024 Encounters Date Type Department Care Team Description 01/01/2025 11:15 AM EST Office Visit [facility] [address] [place] [phone] Melinda Bhat, REFRIGERATOR REPAIR TECHNICIAN Pressure injury of back, stage 3 ([facility] V24, CMS/HCC V28) (Primary Dx) 12/24/2024 11:00 AM EST Office Visit [facility] [address] [place] [phone] Melinda Bhat, REFRIGERATOR REPAIR TECHNICIAN Pressure injury of back, stage 3 (CMS/HCC V24, CMS/HCC V28) (Primary Dx) 12/13/2024 1:15 PM EDT Office Visit [facility] [address] [place] [phone] Melinda Bhat, REFRIGERATOR REPAIR TECHNICIAN Pressure injury of back, stage 3 (CMS/HCC V24, CMS/HCC V28) (Primary Dx) 11/29/2024 2:00 PM EDT Office Visit [facility] [place] [address] [place] [phone] Melinda Bhat, REFRIGERATOR REPAIR TECHNICIAN Pressure injury of back, stage 3 (CMS/HCC V24, CMS/HCC V28) (Primary Dx) 11/14/2024 12:30 PM EDT Office Visit [facility] [place] [address] [place] [phone] Melinda Bhat C, REFRIGERATOR REPAIR TECHNICIAN Pressure injury of back, stage 3 (CMS/HCC V24, CMS/HCC V28) (Primary Dx) 11/08/2024 2:00 PM EDT Office Visit [facility] [place] [address] [place] [phone] Melinda Bhat C, REFRIGERATOR REPAIR TECHNICIAN Pressure injury of back, stage 3 (CMS/HCC V24, CMS/HCC V28) (Primary Dx) 10/24/2024 2:00 PM EDT Office Visit [facility] [place] [address] [place] [phone] Melinda Bhat C, REFRIGERATOR REPAIR TECHNICIAN Pressure injury of back, stage 3 (CMS/HCC V24, CMS/HCC V28) (Primary Dx) 10/15/2024 8:45 AM EDT Office Visit [facility] [place] [address] [place] [phone] Melinda Bhat C, REFRIGERATOR REPAIR TECHNICIAN Pressure injury of back, stage 3 (CMS/HCC V24, CMS/HCC V28) (Primary Dx) 10/05/2024 Home Care Visit [facility] [address] [phone] Josselin Ramires RN 10/04/2024 1:30 PM EDT Office Visit [facility] [place] [address] [place] [phone] Melinda Bhat C, REFRIGERATOR REPAIR TECHNICIAN Pressure injury of back, stage 3 ([facility], [facility] V28) (Primary Dx) 10/04/2024 11:00 AM EDT Home Care Visit [facility] [address] [place] [phone] Larissa Warner RN 10/03/2024 1:15 PM EDT Home Care Visit [facility] [address] [place] [phone] Jeffrey Oneal LPN from Last 3 Months Surgical History Surgery Date Site/Laterality Comments HAND SURGERY PROCEDURE:HAND SURGERY LUNG SURGERY PROCEDURE:LUNG SURGERY PLANTAR FASCIA SURGERY PROCEDURE:PLANTAR FASCIA SURGERY OTHER SURGICAL HISTORY PROCEDURE: WI ARTHRP ACETBLR/PROX FEM PROSTC AGRFT/ALGRFT ROTATOR CUFF REPAIR 03/2017 Right PROCEDURE: HISTORICAL ROTATOR CUFF REPAIR PROSTATE SURGERY 2008 PROCEDURE: HISTORICAL PROSTATE SURGERY; COMMENT: prostatectomy BACK SURGERY 10/19/2023 PROCEDURE: HISTORICAL BACK SURGERY; COMMENT: T11 kyphoplasty, Dr. Henderson Medical History Medical History Date Comments Cancer ([facility], [facility] V28) DX:Cancer ([facility]) Angina pectoris ([facility] V24) DX :Angina pectoris ([facility]) Hypertension DX:Hypertension Gout DX:Gout Heart attack ([facility] V24, [facility] V28) DX:Heart attack ([facility]) Anxiety state DX:Anxiety state Depressive disorder DX:Depressiv e disorder Glaucoma DX:Glaucoma Essential hypertension DX:Essent ial hypertension Cataract DX:Cataract Heart attack ([facility] V24, [facility] V28) 2017 DX:Heart attack ([facility]) Family History Medical History Relation Name Comments [...] EST Inhaled Oxygen Concentration - - Weight 80.7 kg (178 lb) 10/01/2024 2:21 PM EDT Height 185.4 cm (6' 1 ) 08/06/2024 1:23 PM EDT Body Mass Index 23.48 08/06/2024 1:23 PM EDT Plan of Treatment Upcoming Encounters Date Type Department Care Team (Late st Contact Info) Description 01/07/2025 10:00 AM EST Office Visit [facility] [place] [address] [place] [phone] Melinda Bhat, REFRIGERATOR REPAIR TECHNICIAN [address] [place], [place] [phone] 01/14/2025 10:00 AM EST Office Visit [facility] [place] [address] [place] [phone] Melinda Bhat, REFRIGERATOR REPAIR TECHNICIAN [address] [place], [place] [phone] Health Maintenance Due Date Last Done Comments Hepatitis A Vaccines (1 of 2 - Risk 2-dose series) 10/10/1969 Hepatitis B Vaccines (1 of 3 - Risk 3-dose series) 2008 Cholesterol Screening (Lipid Panel) 01/24/2022 Hepatitis C Screening 01/24/2022 Medicare Annual Wellness Visit 01/24/2022 Social Influencers of Health Screening 01/24/2022 Depression Screening 02/22/2024 COVID-19 Vaccine ( season) 2024 11/18/2023, 11/17/2022, 07/24/2021, Additional history exists Influenza Vaccine (#1) 2024 , 11/17/2022, 12/14/2021, Additional history exists Hypertension/CHF/CAD Annual BMP Blood Test 11/09/2024 11/10/2023, 11/10/2023, 06/29/2023, Additional history exists Falls Risk Assessment 12/13/2025 12/13/2024, 025 DTaP,Tdap,and Td Vaccines (2 - Td or Tdap) 08/14/2027 08/13/2017 Zoster Vaccines Completed 12/02/2017, 08/15/2017 Pneumococcal Vaccine: 50+ Years Completed 12/08/2017, 12/09/2016, 11/06/2015, Additional history exists RSV Immunization Adult Patients Completed 04/17/2024 HIB Vaccines Aged Out No longer eligi [...] age to complete this topic Meningococcal B Vaccine Aged Out No l onger eligible based on patient's age to complete this topic RSV Immunization Patients Under 20 months Aged Out No longer eligible based on patient's age to complete this topic Varicella Vaccines Aged Out No longer eligible based on patient's age to complete this topic Goals Goal Patient Goal Type Associated Problems Recent Progress Patient-Stated? Author Decrease Wound Volume by X% by date (in notes) Care Plan Impaired Tissue Pablo Valenzuela, HANDY Patient and Caregiver Understand Wound Care Education Care Plan Impaired Tissue Pablo Valenzuela, demolition expert volume breakdown reduced by X% by week 4 Care Plan Impaired Tissue Pablo Valenzuela, demolition expert volume breakdown reduced by X% by week 8 Care Plan Impaired Tissue Pablo Valenzuela, demolition expert volume breakdown reduced by X% by week 12 Care Plan Impaired Tissue Pablo Valenzuela, RN Note: Wound to heal 80% by [...] omised skin integrity. No Pablo Martin RN Procedures Procedure Name Priority Date/Time Associated Diagnosis Comments DEBRIDEMENT Routine 12/13/2024 1:15 PM EDT Pressure injury of back, stage 3 (CMS/HCC V24, CMS/HCC V28) DEBRIDEMENT Routine 11/14/2024 12:30 PM EDT Pressure injury of back, stage 3 (CMS/HCC V24, CMS/HCC V28) DEBRIDEMENT Routine 11/08/2024 2:00 PM EDT Pressure injury of back, stage 3 (CMS/HCC V24, CMS/HCC V28) DEBRIDEMENT Routine 10/24/2024 2:00 PM EDT Pressure injury of back, stage 3 (CMS/HCC V24, CMS/HCC V28) DEBRIDEMENT Routine 10/15/2024 8:45 AM EDT Pressure injury of back, stage 3 (CMS/HCC V24, CMS/HCC V28) DEBRIDEMENT Routine 10/04/2024 1:30 PM EDT Pressure injury of back, stage 3 (CMS/HCC V24, CMS/HCC V28) from Last 3 Months Results * Debridement Pressure Injury Mid Back (12/13/2024 1:15 PM EDT) Narrative Melinda Bhat NP - 12/13/2024 1:15 PM EDT Melinda Bhat NP 12/13/2024 2:42 PM Debridement Pressure Injury Mid Back Performed by: Melinda Bhat NP Authorized by: Melinda Bhat NP Associated wounds: Wound Pressure Injury 09/03/24 Back Mid Consent: Consent obtained: Written Consent given by: Patient Risks discussed: Yes Time out: Immediately prior to the procedure a time out was called Time out performed at: 12/13/2024 2:08 PM Debridement Details: Performed by: HARLEY Type: conservative sharp Pain control: Lidocaine 5% Pain control administration: topical anesthesia Severity of Tissue Pre Debridement: Fat layer exposed Severity of Tissue Post Debridement: Fat layer exposed Time taken: 12/13/2024 1:00 PM Length (cm): 0.8 Width (cm): 0.9 Depth (cm): 0.3 Area (cm^2): 0.57 Time taken: 12/13/2024 1:01 PM Length (cm): 0.8 Width (cm): 0.9 Depth (cm): 0.3 Percent Debrided (%): 100 Surface Area (cm^2): 0.72 Area Debrided (cm^2): 0.72 Volume (cm^3): 0.22 Tissue and other material debrided: subcutaneous tissue Devitalized tissue debrided: exudate, fibrin and slough Instrument: Curette Amount of bleeding: small Hemostasis obtained with: Pressure Procedural pain: 0 Post-procedural pain: 0 Response to treatment: Procedure was tolerated well Melinda Bhat NP IN CLINIC/BEDSIDE ORDERABLES Final Result * Debridement Pressure Injury Mid Back (11/14/2024 12:30 PM EDT) Melinda Thomas NP - 11/14/2024 12:30 PM EDT Melinda Bhat NP 11/14/2024 1:40 PM Debridement Pressure Injury Mid Back Performed by: Melinda Bhat NP Authorized by: Melinda Bhat NP Associated wounds: Wound Pressure Injury 09/03/24 Back Mid Consent: Consent obtained: Written Consent given by: Patient Risks discussed: Yes Time out: Immediately prior to the procedure a time out was called Time out performed at: 11/14/2024 1:39 PM Debridement Details: Performed by: HARLEY Type: conservative sharp Pain control: Lidocaine 5% Pain control administration: topical anesthesia Severity of Tissue Pre Debridement: Fat layer exposed Severity of Tissue Post Debridement: Fat layer exposed Time taken: 11/14/2024 12:56 PM Length (cm): 1 Width (cm): 1 Depth (cm): 0.5 Area (cm^2): 1 Time taken: 11/14/2024 12:57 PM Length (cm): 1 Width (cm): 1 Depth (cm): 0.5 Percent Debrided (%): 100 Surface Area (cm^2): 1 Area Debrided (cm^2): 1 Volume (cm^3): 0.5 Tissue and other material debrided: subcutaneous tissue Devitalized tissue debrided: exudate, fibrin and slough Instrument: Curette Amount of bleeding: small Hemostasis obtained with: Pressure Procedural pain: 0 Post-procedural pain: 0 Response to treatment: Procedure was tolerated well us Melinda Bhat NP IN CLINIC/BEDSIDE ORDERABLES Final Result * Debridement Pressure Injury Mid Back (11/08/2024 2:00 PM EDT) Melinda Thomas NP - 11/08/2024 2:00 PM EDT Melinda Bhat NP 11/12/2024 9:30 AM Debridement Pressure Injury Mid Back Performed by: Melinda Bhat NP Authorized by: Melinda Bhat NP Associated wounds: Wound Pressure Injury 09/03/24 Back Mid Consent: Consent obtained: Written Consent given by: Patient Risks discussed: Yes Time out: Immediately prior to the procedure a time out was called Time out performed at: 11/08/2024 2:30 PM Debridement Details: Performed by: REFRIGERATOR REPAIR TECHNICIAN Type: conservative sharp Pain control: Lidocaine 5% Pain control administration: topical anesthesia Severity of Tissue Pre Debridement: Fat layer exposed Severity of Tissue Post Debridement: Fat layer exposed Time taken: 11/08/2024 2:00 PM Length (cm): 1 Width (cm): 1.1 Depth (cm): 0.5 Area (cm^2): 1.1 Time taken: 11/08/2024 2:01 PM Length (cm): 1 Width (cm): 1.1 Depth (cm): 0.5 Percent Debrided (%): 100 Surface Area (cm^2): 1.1 Area Debrided (cm^2): 1.1 Volume (cm^3): 0.55 Tissue and other material debrided: subcutaneous tissue Devitalized tissue debrided: exudate, fibrin and slough Instrument: Curette Amount of bleeding: small Hemostasis obtained with: Pressure Procedural pain: 2 Post-procedural pain: 0 Response to treatment: Procedure was tolerated well Melinda Bhat REFRIGERATOR REPAIR TECHNICIAN IN CLINIC/BEDSIDE ORDERABLES Final Result * Debridement Pressure Injury Mid Back (10/24/2024 2:00 PM EDT) Melinda Thomas NP - 10/24/2024 2:00 PM EDT Melinda Bhat NP 10/24/2024 4:15 PM Debridement Pressure Injury Mid Back Performed by: Melinda Bhat NP Authorized by: Melinda Bhat NP Associated wounds: Wound Pressure Injury 09/03/24 Back Mid Consent: Consent obtained: Written Consent given by: Patient Risks discussed: Yes Time out: Immediately prior to the procedure a time out was called Time out performed at: 10/24/2024 3:06 PM Debridement Details: Performed by: REFRIGERATOR REPAIR TECHNICIAN Type: conservative sharp Pain control: Lidocaine 5% Pain control administration: topical anesthesia Severity of Tissue Pre Debridement: Fat layer exposed Severity of Tissue Post Debridement: Fat layer exposed Time taken: 10/24/2024 2:00 PM Length (cm): 1.4 Width (cm): 1.9 Depth (cm): 0.3 Area (cm^2): 2.66 Time taken: 10/24/2024 2:01 PM Length (cm): 1.4 Width (cm): 1.9 Depth (cm): 0.5 Percent Debrided (%): 100 Surface Area (cm^2): 2.66 Area Debrided (cm^2): 2.66 Volume (cm^3): 1.33 Tissue and other material debrided: subcutaneous tissue Devitalized tissue debrided: exudate, fibrin and slough Instrument: Curette Amount of bleeding: small Hemostasis obtained with: Pressure Procedural pain: 0 Post-procedural pain: 0 Response to treatment: Procedure was tolerated well Result [facility] Melinda Bhat REFRIGERATOR REPAIR TECHNICIAN IN CLINIC/BEDSIDE ORDERABLES Final Result * Debridement Pressure Injury Mid Back (10/15/2024 8:45 AM EDT) Melinda Thomas NP - 10/15/2024 8:45 AM EDT Melinda Bhat NP 10/15/2024 9:57 AM Debridement Pressure Injury Mid Back Performed by: Melinda Bhat NP Authorized by: Melinda Bhat NP Associated wounds: Wound Pressure Injury 09/03/24 Back Mid Consent: Consent obtained: Written Consent given by: Patient Risks discussed: Yes Time out: Immediately prior to the procedure a time out was called Time out performed at: 10/15/2024 9:49 AM Debridement Details: Performed by: REFRIGERATOR REPAIR TECHNICIAN Type: conservative sharp Pain control: Lidocaine 5% Pain control administration: topical anesthesia Severity of Tissue Pre Debridement: Fat layer exposed Severity of Tissue Post Debridement: Fat layer exposed Time taken: 10/15/2024 9:00 AM Length (cm): 1.6 Width (cm): 2 Depth (cm): 0.2 Area (cm^2): 3.2 Time taken: 10/15/2024 9:01 AM Length (cm): 1.6 Width (cm): 2 Depth (cm): 0.2 Percent Debrided (%): 100 Surface Area (cm^2): 3.2 Area Debrided (cm^2): 3.2 Volume (cm^3): 0.64 Tissue and other material debrided: dermis, epidermis and subcutaneous tissue Devitalized tissue debrided: exudate, fibrin and slough Instrument: Curette Amount of bleeding: small Hemostasis obtained with: Pressure Procedural pain: 2 Post-procedural pain: 0 Response to treatment: Procedure was tolerated well Melinda Bhat NP IN CLINIC/BEDSIDE ORDERABLES Final Result * Debridement Pressure Injury Mid Back (10/04/2024 1:30 PM EDT) Melinda Thomas NP - 10/04/2024 1:30 PM EDT Melinda Bhat NP 10/04/2024 2:58 PM Debridement Pressure Injury Mid Back Performed by: Melinda Bhat NP Authorized by: Melinda Bhat NP Associated wounds: Wound Pressure Injury 09/03/24 Back Mid Consent: Consent obtained: Written Consent given by: Patient Risks discussed: Yes Time out: Immediately prior to the procedure a time out was called Time out performed at: 10/04/2024 2:55 PM Debridement Details: Performed by: REFRIGERATOR REPAIR TECHNICIAN Type: conservative sharp Pain control: Lidocaine 5% Pain control administration: topical anesthesia Severity of Tissue Pre Debridement: Fat layer exposed Severity of Tissue Post Debridement: Fat layer exposed Time taken: 10/04/2024 1:00 PM Length (cm): 1.8 Width (cm): 2 Depth (cm): 0.2 Area (cm^2): 3.6 Time taken: 10/04/2024 1:01 PM Length (cm): 1.8 Width (cm): 2 Depth (cm): 0.2 Percent Debrided (%): 100 Surface Area (cm^2): 3.6 Area Debrided (cm^2): 3.6 Volume (cm^3): 0.72 Tissue and other material debrided: dermis, epidermis and subcutaneous tissue Devitalized tissue debrided: exudate, fibrin and slough Instrument: Curette Amount of bleeding: small Hemostasis obtained with: Pressure Procedural pain: 2 Post-procedural pain: 0 Response to treatment: Procedure was tolerated well Melinda Bhat REFRIGERATOR REPAIR TECHNICIAN IN CLINIC/BEDSIDE ORDERABLES Final Result from Last 3 Months Additional Health Concerns Active Problems Noted Date Diagnosed Date Impaired Tissue 09/20/2024 Education needed on impact of smoking on wound 0 09/20/2024 Education needed related to ulceration/compromised skin integrity. 09/20/2024 Insurance MEDICARE [facility] Advance Directives * Full Code - Confirmed (Latest Code Status on File) Date Activated Date Inactivated Comments 08/06/2024 2:18 PM
--- OUTSIDE RECORDS SUMMARY | 2025-01-03 09:48 | XMS_ITS | Encounter Summary ---
Author Organization [facility], Address [address] [place] [address] Phone Care Team Providers Care Cullet Washer Name Role Phone Larissa Dillon MD Primary Care Provider Encounter Details Date Type Department Care Team (Late st Contact Info) Description 02/28/2024 Documentation Only [facility], [address] [place] [phone] Marc Sidhu DO [address] [place] [phone] Social History Tobacco Use Types Packs/Day Years [...] of this encounter Functional Status * BP Answer Date of Assessment Author Seymour/Shirley 02/29/2024 2:58 PM Irma Rodrigues DO * Pulse Answer Date of Assessment Author 70 02/29/2024 2:58 PM Irma Rodrigues DO * BP Answer Date of Assessment Author Seymour/Shirley 02/29/2024 2:58 PM Irma Rodrigues DO documented as of this encounter Plan of Treatment Upcoming Encounters Date Type Department Care Team (Late st Contact Info) Description 01/30/2025 4:15 PM EST Office Visit [facility], [address] [place] [phone] Marc Sidhu DO [address] [place] [phone] documented as of this encounter Visit Diagnoses Not on filedocumented in this encounter Care Teams Cullet Washer Relationship Specialty Start Date End Date Larissa Dillon MD [address] [place] [address] [address] [place] [address] PCP - General 12/26/18 documented as of this encounter
--- OUTSIDE RECORDS SUMMARY | 2025-01-03 09:48 | XMS_ITS | Clinical Summary ---
Author Organization [facility], Address [address] [place] [address] [place] [address] Phone Care Team Providers Care Enterprise Cloud Architect Name Role Phone Larissa Dillon MD [...] Encounters Date Type Department Care Team Description 10/31/2024 Telephone [facility], [address] [place] [address] Jas Monet [place] from Last 3 Months Immunizations Immunization Administration Dates Next Due Influenza Split High [...] Visit [facility], [address] [place] [address] Marc Sidhu DO [address] [facility] [place] [phone] Health Maintenance Due Date Last Done Comments Pneumococcal Vaccine: 50+ Years (3 of 3 - PCV20 or PCV21) 01/01/2016 11/06/2015, 12/15/2010 Influenza Vaccine (#1) 2024 0, 12/01/2018, 11/28/2015, Additional history exists Pneumococcal Vaccine: Peds (0 to 5 Years) and At-Risk Patients (6 to 49 Years) Discontinued 11/06/2015, 12/15/2010 Hepatitis B Vaccine Aged Out No longe r eligible based on patient's age to complete this topic Insurance Medicare [facility] Care Teams Enterprise Cloud Architect Relationship Specialty Start Date End Date Larissa Dillon MD [address] [place] [address] [address] [place] [address] PCP - General 12/26/18
--- OUTSIDE RECORDS SUMMARY | 2025-01-03 09:48 | XMS_ITS | Continuity of Care Document ---
Author Organization [facility] Address [address] [place] [address] Phone [phone] Care Team Providers Care Milanese Knitting Machine Operator Name Role Phone Larissa Dillon M.D. 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 12/14/2024 Methotrexate Sodium2.5mg Tablets 3/week Larissa Dillon M.D. 09/07/2024 Khywapq604ku/1.17ML Soln Prefill Syringe inject 2 syringes under the skin once every month for a total dose of 210 mg 7.02ml Larissa Dillon M.D. 04/26/2024 Lfrkzjolqiu4fj Tablets Dispers 1 tablet by mouth every 8 hours as needed for nausea 30tabs Larissa Dillon M.D. 11/21/2023 Potassium Chloride NH63Ign Tablets ER Take 2 tablets with furosemide 3 x week Larissa Dillon M.D. 06/30/2022 Vitamin U3028ih Tablets 1 by mouth twice daily 180tabs Larissa Dillon M.D. 12/18/[address] Part Take 1 Capsule By Mouth Every Day 90caps Larissa Dillon M.D. 11/27/2021 Amlodipine Pctbnbyt5ay Tablets 1 by mouth every day Larissa Dillon M.D. 11/27/2021 Bvaicxrohm22.5mg Tablets 1 by mouth twice a day Larissa Dillon M.D. 11/27/2021 Glucosamine Chondroitin 1500 Fyyjedy9394Iko Capsules 1 by mouth twice a day Larissa Dillon M.D. Nitroglycerin0.4mg Tablets Sub Please See Attached For Detailed Directions Unknown Multivitamin Adults 50+Adlt 50+ Tablets 1 by mouth every day Larissa Dillon M.D. Vitamin T310456xxm Tablets ER 1 by mouth every day Larissa Dillon M.D. Pantoprazole Slsina81yh Tablets DR 1 by mouth every day Unknown Ferrous Mheeymy608(65Fe) mg Tablets 1 by mouth every day Larissa Dillon M.D. Hnerjupabb927jt Capsules take 3 tablets by mouth 2 times a day Unknown Donepezil HCL5mg Tablets take 1 tablet by mouth daily. Unknown Qkcyizzqw2fk Tablets 1 by mouth every day Unknown Wuozytytcsd067cw Tablets 2 by mouth every other day alternating with 300 mg Unknown Vitamin C429doi (1000 Ut) Capsules 1 by mouth every day 100caps Larissa Dillon M.D. Vitamin C500mg Chewtabs 1 by mouth twice a day Larissa Dillon M.D. Tylenol Extra Shuuvold930be Tablets 2 by mouth three times a day as needed Larissa Dillon M.D. Aspirin Ec Low Zemv05zq Tablets DR 1 by mouth every day Larissa Dillon M.D. Testosterone Qthopqhug116la/ml Solution 0.3 ml q week Dante Lemus Latanoprost0.005% Solution apply one drop to each eye at bedtime. Lc San Atorvastatin Ododzyu81lm Tablets Take 1 Tablet By Mouth Every Day Unknown Wftfsqssyph830hz Tablets Take 1 Tablet By Mouth Every Other Day Alternating With 200 MG Unknown Mqbmkcbyke31jg Tablets 1 Tablet By Mouth 3 x week Unknown Dorzolamide HCL/Timolol Wvvgmfs22.3-6.8mg/ml Solution Instill 1 Drop Into Right Eye Twice Daily Lc San History Medications Oxycodone HCL5mg Taba may take one tablet twice daily as needed for severe pain only 15tabs Larissa sanchez M.D. 12/14/2024 - 12/14/2024 Vital Signs Date Vital Result Comment 09/07/2024 2:14pm BP Systolic 144 mmHg BP Diastolic 78 mmHg Heart Rate 79 /min Height 73 inches 6'1 Weight 181.00 lb BMI (Body Mass Index) 23.9 kg/m2 Results Test Acquired Date Facility Test Result H/L Range Note Glucose Fingerstick 09/07/2024 Inhouse Glucose Fingerstick 106 Hemoglobin A1c 09/07/2024 Inhouse Hemoglobin A1c 5.3% Glucose Fingerstick 04/26/2024 Inhouse Glucose Fingerstick 104 Hemoglobin A1c 04/26/2024 Inhouse Hemoglobin A1c 5.8 [...] x10E3/uL 0.0-0.1 NRBC TNP Hematology Comments: TNP Calcium 02/10/2024 [facility] Calcium 9.3 mg/dL 8.6-10.2 Albumin 02/10/2024 [facility] Albumin 4.2 g/dL 3.8-4.8 Phosphorus 02/10/2024 [facility] Phosphorus 2.7 mg/dL Low 2.8-4.1 Calcium 01/12/2024 [facility] Calcium <pending> Albumin 01/12/2024 [facility] Albumin <pending> Phosphorus 01/12/2024 [facility] Phosphorus <pending> PTH, Intact 01/11/2024 [facility] PTH, Intact 44 pg/mL 15-65 Phosphorus 01/11/2024 [facility] Phosphorus 2.3 mg/dL Low 2.8-4.1 TSH Rfx on Abnormal to Free T4 01/11/2024 [facility] TSH Rfx on Abnormal to Free T4 0.773 uIU/mL 0.450-4.5 00 Vitamin D, 25-Hydroxy 01/11/2024 [facility] Vitamin D, [...] 6.4% TSH With Reflex To FT4 06/30/2022 [facility] TSH With Reflex To FT4 1.29 uIU/mL (0.4-4.2) 1 Vitamin D deficiency has been defined by the [place] of [employer] and an Endocrine Society practice guideline as a level of serum 25-OH vitamin D less than 20 ng/mL (1,2). The Endocrine Society went on to further define vitamin D insufficiency as a level between 21 and 29 ng/mL (2). 1. IOM ([place] of Medicine). 2010. Dietary reference intakes for calcium and D. [place]: The National Academies Press. 2. Mohan MF, Chance BO, Isaias TORREZ, et al. Evaluation, treatment, and prevention of vitamin D deficiency: an Endocrine Society clinical practice guideline. JCEM. 2010; 96(7):1911-30. 2 Prediabetes: 5.7 - 6 .4 Diabetes: >6.4 Glycemic control for adults with diabetes: <7.0 3 Effective January 23, 2024 profile 135934 WBC will be made non-orderable as a stand-alone order code. Procedures Date Code Description Status 04/26/2024 69264 Collection Of Venous Blood B y Venipuncture Completed 06/30/2022 24306 Collection Of Venous Blood B y Venipuncture Completed 05/04/2022 G0180 Physician Certification Serv ices, Per Certification Period Completed Medical Devices Description No Information Available Encounters Type Date Location Provider Dx Diagnosis Office Visit 12/28/2024 1:47p Main Office Larissa Dillon M.D. I10 Essential (primary) hypertension N18.2 Chronic kidney disea se, stage 2 (mild) Assessments Date Code Description Provider 12/28/2024 I10 Essential (primary) hyperten krissy Larissa Dillon M.D. 12/28/2024 N18.2 Chronic kidney disease, stag e 2 (mild) Larissa Dillon M.D. Plan of Treatment Future Appointment(s):* 01/09/2025 2:45 pm - Larissa Dillon M.D. 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 * D50.9 Iron deficiency anemia, unspecified * N18.2 Chronic kidney disease, stage 2 (mild) * M81.0 Age-related osteoporosis without current pathological fracture * M15.9 Polyosteoarthritis, unspecified * E04.2 Nontoxic multinodular goiter * G47.33 Obstructive sleep apnea (adult) (pediatric) * Z87.310 Personal history of (healed) osteoporosis fracture * M47.896 Other spondylosis, lumbar region * G47.30 Sleep apnea, unspecified * K62.5 Hemorrhage of anus and rectum * I49.3 Ventricular premature depolarization * Functional Status Description No Information Available Mental Status Description No Information Available Referrals Refer to Dr Reason for Referral Status Appt Deuce e [facility] Cardiology frequent ventricular ectopy Schedu led 03/14/2025 [address] [facility] [address] [facility] [facility], [address] [place] [address] [phone] Zheng Montoya MD Spinal Cord Compress ion PATIENT IS SCHEDULED FOR MRI 09/29/24 Patient Declined [address] [place] [address] [phone] Patient Declined [facility] - [facility] MID AND LOWER BACK PAIN Patient Declined [address] [place] [address] [phone] [facility] Behavioral Adult Psychiatric OCD Pat ient Declined 09/23/2023 [address] [place], [place] [id number] [phone]
--- OUTSIDE RECORDS SUMMARY | 2025-01-03 09:48 | XMS_ITS ---
Care Plan Created on: January 03, 2025 J Carlos Munguia : 1950 Sex: Male Author Organization [facility] [address] Address [address] [place] [address] Phone Care Team Providers Care Aeronautical Products Sales Engineer Name Role Phone Unavailable Primary Care Provider Unavailabl e Active Problems Problem Noted Date Diagnosed Date Pressure injury of back, stage 3 (CMS/HCC V24, C MS/HCC V28) 09/20/2024 Additional Health Concerns Active Problems Noted Date Diagnosed Date Impaired Tissue 09/20/2024 Education needed on impact of smoking on wound 0 09/20/2024 Education needed related to ulceration/compromised skin integrity. 09/20/2024 Goals Goal Patient Goal Type Associated Problems [...] Care Plan Impaired Tissue No Pablo Martin brass cleaner volume breakdown reduced by X% by week 12 Care Plan Impaired Tissue No Pablo Martin RN Note: Wound to heal 80% by week 12 Quit using tobacco (cigarettes, smokeless, etc) Care Plan Education needed on impact of smoking on wound No Pablo Martin, HANDY Reduce tobacco use (cigarettes, smokeless, etc) Care Plan Education needed on impact of smoking on wound No Pablo Martin, RN Decrease Wound Volume by X% by date (in notes) Care Plan Education needed on impact of smoking on wound No Pablo Martin, RN Patient and Caregiver Understand Wound Care Education Care Plan Education needed related to ulceration/compr omised skin integrity. No Pablo Martin RN Interventions Care Plan Interventions Intervention Entry Date Outcome Provide caregiver with wound care procedure information 09/20/2024 Educate caregiver on proper wound care procedures 09/20/2024 Give provider list of wound care supplies 09/20/2024 Refill wound care supplies 09/20/2024 Send Wound Care Supplies 09/20/2024 Give provider list of wound care supplies 09/20/2024 Refill wound care supplies 09/20/2024 Send Wound Care Supplies 09/20/2024 Provide caregiver with wound care procedure information 09/20/2024 Educate caregiver on proper wound care procedures 09/20/2024 Document patient eligibility for HBO 09/20/2024 Assess patient for HBO treatment 09/20/2024 Record wound depth 09/20/2024 Record total wound area 09/20/2024 Measure wound progress 09/20/2024 Create an action plan identifying patient strengths and supports 09/20/2024 Establish quit date with patient 09/20/2024 Discuss prior cessation attempts 09/20/2024 Discuss preferred method of cessation and plan 09/20/2024 Discuss barriers to smoking cessation 09/20/2024 Discuss smoking status with patient 09/20/2024 Create an action plan identifying patient strengths and supports 09/20/2024 Establish quit date with patient 09/20/2024 Discuss prior cessation attempts 09/20/2024 Discuss preferred method of cessation and plan 09/20/2024 Discuss barriers to smoking cessation 09/20/2024 Discuss smoking status with patient 09/20/2024 Educate caregiver on proper wound care procedures 09/20/2024 Document patient eligibility for HBO 09/20/2024 Assess patient for HBO treatment 09/20/2024 Record wound depth 09/20/2024 Record total wound area 09/20/2024 Provide caregiver with wound care procedure information 09/20/2024 Educate caregiver on proper wound care procedures 09/20/2024 Document patient eligibility for HBO 09/20/2024 Assess patient for HBO treatment 09/20/2024 Record wound depth 09/20/2024 Record total wound area 09/20/2024 Measure wound progress 09/20/2024 Provide caregiver with wound care procedure information 09/20/2024 Educate caregiver on proper wound care procedures 09/20/2024 Document patient eligibility for HBO 09/20/2024 Assess patient for HBO treatment 09/20/2024 Record wound depth 09/20/2024 Record total wound area 09/20/2024 Measure wound progress 09/20/2024 Provide caregiver with wound care procedure information 09/20/2024 Educate caregiver on proper wound care procedures 09/20/2024 Give provider list of wound care supplies 09/20/2024 Refill wound care supplies 09/20/2024 Send Wound Care Supplies 09/20/2024 Give provider list of wound care supplies 09/20/2024 Refill wound care supplies 09/20/2024 Send Wound Care Supplies 09/20/2024 Provide caregiver with wound care procedure information 09/20/2024 Educate caregiver on proper wound care procedures 09/20/2024 Document patient eligibility for HBO 09/20/2024 Assess patient for HBO treatment 09/20/2024 Record wound depth 09/20/2024 Record total wound area 09/20/2024 Measure wound progress 09/20/2024 Related Goals and Interventions Goal Associated Intervent ions Decrease Wound Volume by X% by date (in notes) Give provider list of wound care supplie s; Refill wound care supplies; Send Wound Care Supplies; Provide caregiver with wound care procedure information; Educate caregiver on proper wound care procedures; Document patient eligibility for HBO; Assess patient for HBO treatment; Record wound depth; Record total wound area; Measure wound progress Patient and Caregiver Unders tand Wound Care Education Provide caregiver with wound care proced ure information; Educate caregiver on proper wound care procedures; Give provider list of wound care supplies; Refill wound care supplies; Send Wound Care Supplies Wound volume breakdown reduc ed by X% by week 4 Provide caregiver with wound care proced ure information; Educate caregiver on proper wound care procedures; Document patient eligibility for HBO; Assess patient for HBO treatment; Record wound depth; Record total wound area; Measure wound progress Wound volume breakdown reduc ed by X% by week 8 Provide caregiver with wound care proced ure information; Educate caregiver on proper wound care procedures; Document patient eligibility for HBO; Assess patient for HBO treatment; Record wound depth; Record total wound area; Measure wound progress Wound volume breakdown reduc ed by X% by week 12 Educate caregiver on proper wound care procedures; Document patient eligibility for HBO; Assess patient for HBO treatment; Record wound depth; Record total wound area Quit using tobacco (cigarett es, smokeless, etc) Create an action plan identifying patien t strengths and supports; Establish quit date with patient; Discuss prior cessation attempts; Discuss preferred method of cessation and plan; Discuss barriers to smoking cessation; Discuss smoking status with patient Reduce tobacco use (cigarett es, smokeless, etc) Create an action plan identifying patien t strengths and supports; Establish quit date with patient; Discuss prior cessation attempts; Discuss preferred method of cessation and plan; Discuss barriers to smoking cessation; Discuss smoking status with patient Decrease Wound Volume by X% by date (in notes) Give provider list of wound care supplie s; Refill wound care supplies; Send Wound Care Supplies; Provide caregiver with wound care procedure information; Educate caregiver on proper wound care procedures; Document patient eligibility for HBO; Assess patient for HBO treatment; Record wound depth; Record total wound area; Measure wound progress Patient and Caregiver Unders tand Wound Care Education Provide caregiver with wound care proced ure information; Educate caregiver on proper wound care procedures; Give provider list of wound care supplies; Refill wound care supplies; Send Wound Care Supplies
--- OUTSIDE RECORDS SUMMARY | 2025-01-03 09:48 | XMS_ITS | Encounter Summary ---
Author Organization [facility] Address [address] [place] [address] Phone Care Team Providers Care Body Stylist Name Role Phone Larissa Dillon MD Primary Care Prov ider Larissa Dillon MD Unavailable + Gisela Martinez MD Unavailable Kaela Méndez Unavailable [phone] Reason for Visit * Reason Onset Date Comments Same day Can 12/27/2024 Pt sick Encounter Details Date Type Department Care Team (Late st Contact Info) Description 12/27/2024 Telephone [facility] Rheumatology [address] [place] [address] Gisela Martinez MD [address] [facility], [address] [place] [address] [email or web address] Same day Can (Pt sick ) Social History Tobacco Use Types Packs/Day Years [...] as of this encounter Progress Notes * Kylie Yip - 12/27/2024 10:47 AM EST [facility] PEN Top Smart Phrases: 24-48 Hour No-Show Notice If caller not the patient: Name: Pt Relationship: Cancel Appt Visit Type: FOLLOW UP VISIT Cancelation Reason: Personal Reasons Cancelation Detail: Pt woke up sick today Was Appt Reschedule: Yes Awareness: I have reiterated our late cancellation policy to the caller. Agent Action: > Reason for Call: NO SHOW > Comment: Enter Cancel Appt date > Route: Route to FD if the No-Show is a future date. > Route: [facility] SDV and Sick Visit No-Show, route to RN for rescheduling. Do not reschedule. Call Center: Ensure the appt has been cancel from the future tab > Reiterate Scripting: Provide our late cancellation policy to the caller documented in this encounter Plan of Treatment Upcoming Encounters Date Type Department Care Team (Late st Contact Info) Description 01/04/2025 9:00 AM EST Office Visit [facility] Rhe[place] [address] Gisela Martinez MD [address] [facility] [place] [address] documented as of this encounter Visit Diagnoses Not on filedocumented in this encounter Care Teams Body Stylist Relationship Specialty Start Date End Date Larissa Dillon MD [address] [place] [address] [place] [address] PCP - General 12/09/16 Larissa Dillon MD [address] [place] [address] [address] [place] [address] Historical LMR Provider 12/11/16 Gisela Martinez MD [address] [place] [address], [address] [place] [address] [email or web address] Historical LMR Provider 12/11/16 Kaela Méndez PA [address] [place] [address] [place] [address] [email or web address] 06/23/20 documented as of this encounter Additional Source Comments The information contained in this document represents components of the legal health record. It is not the complete legal health record.[facility]
--- OUTSIDE RECORDS SUMMARY | 2025-01-03 09:48 | XMS_ITS | Encounter Summary ---
Author Organization [facility], Address [address] [place] [address] Phone Care Team Providers Care Engraver Ornamental Design Name Role Phone Larissa Dillon MD Primary Care Provider Encounter Details Date Type Department Care Team (Late st Contact Info) Description 02/28/2024 Documentation Only [facility], [address] [place] [phone] Marc Sidhu DO [address] [place] [phone] Social History Tobacco Use Types Packs/Day Years [...] Visit [facility], [address] [place] [address] Marc Sidhu DO [address] [place] [phone] documented as of this encounter Visit Diagnoses Not on filedocumented in this encounter Care Teams Engraver Ornamental Design Relationship Specialty Start Date End Date Larissa Dillon MD [address] [place] [address] [address] [place] [address] PCP - General 12/26/18 documented as of this encounter
--- OUTSIDE RECORDS SUMMARY | 2025-01-03 09:48 | XMS_ITS | Encounter Summary ---
Author Organization [facility] Address [address] [place] [address] Phone Care Team Providers Care Site Safety Manager Name Role Phone Larissa Dillon MD Primary Care Provider Encounter Details Date Type Department Care Team (Late st Contact Info) Description 02/03/2023 Documentation Only [facility] [address] [place] [address] Marc Sidhu DO [address] [place] [address] Social History Tobacco Use Types [...] Visit [facility] [address] [place] [address] Marc Sidhu DO [address] [place] [address] documented as of this encounter Visit Diagnoses Not on filedocumented in this encounter Care Teams Site Safety Manager Relationship Specialty Start Date End Date Larissa Dillon MD [address] [place] [address] [address] [place] [address] PCP - General 12/26/18 documented as of this encounter
--- OUTSIDE RECORDS SUMMARY | 2025-01-03 09:48 | XMS_ITS | Encounter Summary ---
Author Organization [facility] Address [address] [facility] [address] [place] [address] Phone Care Team Providers Care Stoneworking Belt Sander Name Role Phone Larissa Dillon MD Primary Care Prov ider Larissa Dillon MD Unavailable + Gisela Martinez MD Unavailable [phone] Kaela Méndez Unavailable [phone] Encounter Details Date Type Department Care Team (Late st Contact Info) Description 12/26/2024 Orders Only [facility] Rheumatology [address] [place] [address] Rebeka Stanton CMA [address] [place] [address] Idiopathic chronic gout of multiple sites without tophus; On allopurinol therapy Social History Tobacco Use Types Packs/Day Years [...] AM EST Office Visit [facility] Rheumatology [address] [place] [address] Gisela Martinez MD [address] [facility], [address] [place] [address] documented as of this encounter Procedures Procedure Name Priority Date/Time Associated Diagnosis Comments CBC AND DIFFERENTIAL Routine 12/26/2024 12:37 PM EST Idiopathic chronic gout of multiple sites without tophus On allopurinol therapy URIC ACID Routine 12/20/2024 2:06 PM EDT Idiopathic chronic gout of multiple sites without tophus On allopurinol therapy CBC AND DIFFERENTIAL Routine 12/20/2024 2:06 PM EDT Idiopathic chronic gout of multiple sites without tophus On allopurinol therapy SEDIMENTATION RATE (ESR) Routine 12/20/2024 2:06 PM EDT Idiopathic chronic gout of multiple sites without tophus On allopurinol therapy C-REACTIVE PROTEIN (CRP) Routine 12/20/2024 2:06 PM EDT Idiopathic chronic gout of multiple sites without tophus On allopurinol therapy COMPREHENSIVE METABOLIC PANEL (CMP) Routine 12/20/2024 2:05 PM EDT Idiopathic chronic gout of multiple sites without tophus On allopurinol therapy documented in this encounter Results * Uric Acid (12/20/2024 2:06 PM EDT) Blood (Blood) us Gisela Martinez MD LAB BLOOD BKR ORDERABLES Final Result EXTERNAL NON-INTERFACED REF LAB * CBC and Differential (12/20/2024 2:06 PM EDT) Blood (Blood) us Gisela Martinez MD LAB BLOOD BKR ORDERABLES Edited Result - Final Performing Organization Address [facility] de Phone Number EXTERNAL NON-INTERFACED REF LAB * Erythrocyte Sedimentation Rate (ESR) (12/20/2024 2:06 PM EDT) Blood (Blood) us Gisela Martinez MD LAB BLOOD BKR ORDERABLES Final Result Performing Organization Address [facility] de Phone Number EXTERNAL NON-INTERFACED REF LAB * C-Reactive Protein (CRP) (12/20/2024 2:06 PM EDT) Blood (Blood) Result Marta Martinez MD LAB BLOOD BKR ORDERABLES Final Result Performing Organization Address [facility] de Phone Number EXTERNAL NON-INTERFACED REF LAB * Comprehensive Metabolic Panel (CMP) (12/20/2024 2:05 PM EDT) Blood (Blood) Result Marta Martinez MD LAB BLOOD BKR ORDERABLES Final Result Performing Organization Address [facility] de Phone Number EXTERNAL NON-INTERFACED REF LAB documented in this encounter Visit Diagnoses Diagnosis Idiopathic chronic gout of multiple sites without tophus On allopurinol therapy documented in this encounter Care Teams Stoneworking Belt Sander Relationship Specialty Start Date End Date Larissa Dillon MD [address] [place] [address] [address] [place] [address] PCP - General 12/09/16 Larissa Dillon MD [address] [place] [address] [place] [address] Historical LMR Provider 12/11/16 Gisela Martinez MD [address] [place] [address], [address] [place] [address] [email or web address] Historical LMR Provider 12/11/16 Kaela Méndez PA [facility] [place] [address] [email or web address] Location Manager 06/23/20 documented as of this encounter Additional Source Comments The information contained in this document represents components of the legal health record. It is not the complete legal health record.[facility]
--- OUTSIDE RECORDS SUMMARY | 2025-01-03 09:49 | XMS_ITS | Encounter Summary ---
Author Organization [facility] Address [address] [place] [address] Phone Care Team Providers Care Reflector Driller And Deburrer Name Role Phone Larissa Dillon MD Primary Care Provider Encounter Details Date Type Department Care Team (Late st Contact Info) Description 01/24/2023 Documentation Only [facility] [address] [place] [address] Marc Sidhu DO [address] [facility] [place] [address] Social History Tobacco Use Types [...] Visit [facility] [address] [place] [address] Marc Sidhu DO [address] [facility] [place] [address] documented as of this encounter Visit Diagnoses Not on filedocumented in this encounter Care Teams Reflector Driller And Deburrer Relationship Specialty Start Date End Date Larissa Dillon MD [address] [place] [address] [address] [place] [address] PCP - General 12/26/18 documented as of this encounter
--- OUTSIDE RECORDS SUMMARY | 2025-01-03 09:49 | XMS_ITS | Clinical Summary ---
Author Organization [facility] Address [address] [place] [address] Care Team Providers Care Staff Readiness Officer Name Role Phone Larissa Dillon MD Primary [...] 109 11/10/2023 4:30 PM EDT Temperature 36.7 C (98 F) 11/10/2023 4:30 PM EDT Respiratory Rate 20 [...] Depression Screening 1960 Preventative Health Evaluation 1966 Fall Risk Assessment 2013 RSV Adult > 60+ Yrs or (1 - 1-dose 75+ series) 10/10/2023 COVID-19 Vaccine (2 - 2024- season) 2024 07/24/2021 Influenza Vaccine (#1) 2024 2, 12/09/2020, 10/11/2019, Additional history exists DTap [...] age to complete this topic Care Teams Staff Readiness Officer Relationship Specialty Start Date End Date Larissa Dillon MD [address] [place] [address] Drive [address] [place] [address] PCP - General Gastroenterology 04/08/20
--- OUTSIDE RECORDS SUMMARY | 2025-01-03 09:49 | XMS_ITS | Encounter Summary ---
Author Organization [facility] Address [address] [place] [address] [address] [place] [phone] Phone Care Team Providers Care Director Integrated Name Role Phone Larissa Dillon MD Primary Care Prov ider Larissa Dillon MD Unavailable + Gisela Martinez MD Unavailable [phone] Kaela Méndez Unavailable [phone] Encounter Details Date Type Department Care Team (Late st Contact Info) Description 08/18/2017 Procedure Pass [place] Admitting Dept - Virtual Department [address] [place] [address] Social History Tobacco Use Types Packs/Day Years Used Date Smoking Tobacco: Never Smokeless Tobacco: Never Alcohol Use Standard Drinks/Week Comments Yes 0 (1 standard drink = 0.6 oz pur e alcohol) 1-2 beers daily Sex and Gender Information Value Date Recorded Sex Assigned at Not on file Legal Sex Male 10:37 PM EDT Gender Identity Not on file Sexual Orientation Not on file documented as of this encounter Plan of Treatment Upcoming Encounters Date Type Department Care Team (Late st Contact Info) Description 01/04/2025 9:00 AM EST Office Visit [facility] Rheumatology [address] [place] [address] Gisela Martinez MD [address] [facility], [address] [place] [address] [email or web address] documented as of this encounter Visit Diagnoses Not on filedocumented in this encounter Care Teams Director Integrated Relationship Specialty Start Date End Date Larissa Dillon MD [address] [place] [address] [place] [address] PCP - General 12/09/16 Larissa Dillon MD [address] [place] [address] [place] [address] Historical LMR Provider 12/11/16 Gisela Martinez MD [address] [place] [address], [address] [place] [address] [email or web address] Historical LMR Provider 12/11/16 Kaela Méndez PA [address] [place], [place] [address] [address] [email or web address] 06/23/20 documented as of this encounter Additional Source Comments The information contained in this document represents components of the legal health record. It is not the complete legal health record.[facility]
--- OUTSIDE RECORDS SUMMARY | 2025-01-03 09:49 | XMS_ITS | Encounter Summary ---
Author Organization [facility] Address [address] [place] [address] [address] [place] [address] Phone Care Team Providers Care Manager Research Development Name Role Phone Larissa Dillon MD Primary Care Prov ider Larissa Dillon MD Unavailable + Gisela Martinez MD Unavailable Kaela Méndez Unavailable [phone] Encounter Details Date Type Department Care Team (Late st Contact Info) Description 08/09/2017 Procedure Pass [facility],Outside Imaging [address] [place] [address] Social History Tobacco Use Types Packs/Day Years [...] Description 01/04/2025 9:00 AM EST Office Visit [facility] Rheumatology [address] [place] [address] Gisela Martinez MD [address] [facility], [address] [place] [address] documented as of this encounter Visit Diagnoses Not on filedocumented in this encounter Care Teams Manager Research Development Relationship Specialty Start Date End Date Larissa Dillon MD [address] [place] [address] [address] [place] [address] PCP - General 12/09/16 Larissa Dillon MD [address] [place] [address] [address] [place] [address] Historical LMR Provider 12/11/16 Gisela Martinez MD [address] [place] [address], [address] [place] [address] [email or web address] Historical LMR Provider 12/11/16 Kaela Méndez PA [address] [place], [place] [address] [address] [email or web address] Marketing Director 06/23/20 documented as of this encounter Additional Source Comments The information contained in this document represents components of the legal health record. It is not the complete legal health record.[facility]
--- OUTSIDE RECORDS SUMMARY | 2025-01-03 09:49 | XMS_ITS | Clinical Summary ---
Author Organization [facility] Address [address] [place], [place] [id number] Phone Care Team Providers Care 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 Name Role Phone Larissa Dillon MD Primary Care Prov ider Larissa Dillon MD Unavailable + Gisela Martinez MD Unavailable Kaela Méndez Unavailable Allergies No known active allergies Medications dorzolamide-timolo l (COSOPT) 22.3-6.8 mg/mL ophthalmic solution Place 1 drop into the right eye 2 (two) times a day. Active latanoprost (XALATAN) 0.005 % ophthalmic solution Place 1 drop into the right eye daily. Active cholecalciferol (VITAMIN D3) 1,000 unit tablet Take 1,000 Units by mouth daily. Active nitroglycerin (NITROSTAT) 0.4 MG SL tablet Take 0.4 mg by mouth as needed. 1 01/12/20 18 Active BD TUBERCULIN SYRINGE 1 mL 25 gauge x 5/8 Syrg USE TO INJECT TESTOSTERONE 5 01/29/20 18 Active carvedilol (COREG) 6.25 MG tablet Take 12.5 mg by mouth 2 (two) times a day with meals. Active atorvastatin (LIPITOR) 80 MG tablet Take 80 mg by mouth daily. 11 02/28/19 19 Active glucosamine HCl/chondroitin matos (GLUCOSAMINE-CHOND ROITIN ORAL) Take 1 capsule by mouth daily. Glucosamine 1500mg/ Chondroitin 1200mg 1 tab daily Active amLODIPine (NORVASC) 5 MG tablet Take 5 mg by mouth daily. 12/22/19 22 Active DULoxetine (CYMBALTA) 30 MG capsule Take by mouth daily. 12/25/19 22 Active acetaminophen (TYLENOL) 500 MG tablet Take 1,500 mg by mouth daily. Active thiamine (VITAMIN B-1) 100 MG tablet Take 100 mg by mouth 2 (two) times a day. Active ascorbic acid (VITAMIN C ORAL) Take 1,000 mg by mouth daily. Active therapeutic multivitamin tablet Take 1 tablet by mouth daily. Active cyanocobalamin, vitamin B-12, 1000 MCG tablet Take 1,000 mcg by mouth daily. Active furosemide (LASIX) 40 MG tablet 3 days a week M W F 02/17/20 22 Active donepeziL (ARICEPT) 5 MG tablet Take 5 mg by mouth daily. 07/06/19 23 Active tadalafiL (CIALIS) 5 MG tablet TAKE ONE TABLET BY MOUTH DAILY FOR BLADDER URGE 07/22/19 23 Active testosterone cypionate (DEPO-TESTOTERONE) 200 mg/mL injection 0.3 mg every 7 days. Active potassium chloride SA (KLOR-CON M) 20 MEQ ER tablet Take 40 mEq by mouth 3 (three) times a week. Active aspirin 81 MG EC tablet Take 81 mg by mouth daily. Active ferrous sulfate 325 mg (65 mg burns paiute iron) tablet Take 325 mg by mouth daily with breakfast. Active pantoprazole (PROTONIX) 40 MG tablet Take 40 mg by mouth daily. 03/17/19 24 Active gabapentin (NEURONTIN) 300 MG capsuleIndications :Idiopathic chronic gout of multiple sites without tophus,Fibromyalgi a Take 3 caps every morning in addition to 1200 mg every evening 270 capsule 3 12/08/19 24 Active CALCIUM CITRATE ORAL Take 500 mg by mouth 2 (two) times a day. Active romosozumab-aqqg (EVENITY) 105 mg/1.17 mL subcutaneous syringe Inject 210 mg under the skin every 30 (thirty) days. Active folic acid (FOLVITE) 1 MG tablet Take 1 tablet (1 mg total) by mouth daily. 90 tablet 3 04/12/19 25 Active methotrexate 2.5 MG Oral tabletIndications: Inflammatory arthritis Take 3 tablets (7.5 mg total) by mouth every 7 days. 36 tablet 1 08/16/19 25 Active traMADoL (ULTRAM) 50 mg tabletIndications: Idiopathic chronic gout of multiple sites without tophus,Inflammator y arthritis,Primary osteoarthritis involving multiple joints,Toe injury, left, initial encounter Take 1 tablet (50 mg total) by mouth every 6 (six) hours as needed for pain (specific location in comments). 28 tablet 08/18/19 25 Active gabapentin (NEURONTIN) 600 MG tabletIndications: Primary osteoarthritis involving multiple joints Take 2 tabs every evening together with Gabapentin 900 mg every morning 60 tablet 11 09/18/19 25 Active allopurinol (ZYLOPRIM) 100 MG tabletIndications: Idiopathic chronic gout of multiple sites without tophus Take 2 tablets (200 mg total) by mouth every other day. 180 tablet 11/07/19 25 Active allopurinol (ZYLOPRIM) 300 MG tabletIndications: Idiopathic chronic gout of multiple sites without tophus Take 1 tablet (300 mg total) by mouth every other day. 90 tablet 11/07/19 25 Active Active Problems Problem Noted Date Diagnosed Date Encounter for monitoring of methotrexate therapy 08/15/2024 Assessment & Plan (09/09/2024 9:48 PM EDT): Carefully continue every several days as prescribed along with daily 1 mg of folic acid. Monitor for mouth sores, unusual abdominal pain, nausea, breathing difficulty, cough. Hold methotrexate whenever running fever, feeling sick or taking antibiotics. Complete entire antibiotic course and wait at least 48 hours after the last dose to make sure that infection does not recur before returning to its usual weekly dosing schedule. Return for monitoring labs-standing orders in [facility]. Hold methotrexate when getting vaccinations for 2 weekly doses. Refrain from drinking alcohol while taking methotrexate. Make sure to inform any new MD, PA, CARTOGRAPHIC DESIGNER about therapy with methotrexate particularly in emergency situations. Toe injury, left, initial encounter 08/15/2024 Other specified anemias 08/15/2024 Assessment & Plan (09/09/2024 9:50 PM EDT): Encouraged to continue daily iron pill along with good sources of dietary vitamin C, B12. Refrain from alcohol drinking Inflammatory arthritis 04/12/2024 Assessment & Plan (08/15/2024 1:46 PM EDT): Due to unbearable pain in his feet, progressive arthritic changes in multiple joints of hands he is interested in trying disease modifying antirheumatic therapy with methotrexate hoping for decreased rate of joint destruction related pain and stiffness. He is up to date on yearly influenza, COVID-19, pneumonia, Shingrix vaccination and plans to get RSV vaccine prior to starting weekly oral methotrexate at 7.5 mg along with daily folic acid 1 mg. I request monitoring labs after 4th weekly methotrexate dose-standing orders in [facility]. If he tolerates it well and labs do not show any signs of toxicity may need to gradually build up the dose to lowest necessary to achieve therapeutic effect. He is free to call in the interim with questions or problems and return in 4 months if no worsening Assessment & Plan (04/12/2024 9:55 PM EST): Due to unbearable pain in his feet, progressive arthritic changes in multiple joints of hands he is interested in trying disease modifying antirheumatic therapy with methotrexate hoping for decreased rate of joint destruction related pain and stiffness. He is up to date on yearly influenza, COVID-19, pneumonia, Shingrix vaccination and plans to get RSV vaccine prior to starting weekly oral methotrexate at 7.5 mg along with daily folic acid 1 mg. I request monitoring labs after 4th weekly methotrexate dose-standing orders in [facility]. If he tolerates it well and labs do not show any signs of toxicity may need to gradually build up the dose to lowest necessary to achieve therapeutic effect. 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 Avoid falls, injuries. Status post right hip replacement 09/01/2023 Assessment & Plan (09/08/2023 9:41 AM EDT): Continue regular PT guided exercises and follow-up closely with surgical team as scheduled on 09/20/2023. Current use of steroid medication 07/03/2023 Assessment & Plan (07/03/2023 8:12 PM EDT): I have reviewed with him and his multiple side effects including but not limited to increased risk of infection, bone osteonecrosis in the hips, knees or jaw, peptic ulcer, mood swings, increased intraocular and systemic pressure, diabetes, osteoporosis, fluid retention, increased appetite, bruising, hair thinning etc. I have not extended prednisone for him particularly as he plans to get R THR on 08/08/2023. Daily calcium and vitamin D supplementation. Regular weightbearing exercises. Fall prevention strategies. Skin breakdown 06/29/2023 Assessment & Plan (07/03/2023 8:07 PM EDT): Soak the foot in warm soapy water and gently massage to remove a tiny amount of developing pus. Keep it dry and clean on a pillow covered with sterile dressing that I provided for trip to home. Seek help if not better or worse. Swollen ankles 06/29/2023 Assessment & Plan (07/03/2023 8:08 PM EDT): Continue elevating ankles on a pillow above the heart level for 15-20 minutes every couple of hours. Use supportive stockings put first thing in the morning before taking legs of the bed. Carefully continue Lasix as prescribed if necessary. Status post left hip replacement 05/26/2023 Assessment & Plan (05/26/2023 10:50 PM EDT): Carefully continue PT guided regular exercising. Avoid falls, injuries and overuse. Trochanteric bursitis of left hip 07/16/2022 Assessment & Plan (07/27/2022 10:55 AM EDT): Procedure: After an informed oral consent, under sterile conditions using Ethyl chloride spray for local anesthesia I have injected 40 mg Kenalog and 2 cc 1% Lidocaine into Left trochanteric bursa uneventfully. Details of post-procedure care were explained to the patient in the office and given in writing. Provider: Gisela Martinez MD Patient: J Carlso Munguia : 1950 Date: 07/16/2022 Examples of exercises with pictures and detailed instructions printed for home use on regular basis after warm pack or warm shower. Advice given about COVID-19 virus infection 04/22 Assessment & Plan (05/19/2021 7:08 PM EDT): Due to his age and multiple medical conditions he is at greater risk for segundo Covid and would benefit from fourth COVID-19 vaccine dose 5 months after third vaccine dose. In case he contracts COVID-19 infection he should call within the first 24-48 hours to request monoclonal antibody treatment. Renal insufficiency 08/14/2020 Assessment & Plan (08/26/2020 7:38 AM EDT): Proper hydration strongly encouraged: 6-8 glasses (8 ounces each of fluids daily. Avoid NSAIDs, antibiotics and other nephrotoxic medications. Follow closely with PCP and instructional aide as scheduled. Quadriceps muscle rupture, right, sequela 2020 Tremor of both hands 06/04/2020 Assessment & Plan (06/14/2020 4:07 PM EDT): Continue close follow-up with treating neurologist and consider increasing gabapentin if needed. Hypokalemia 03/04/2020 Assessment & Plan (03/04/2020 8:24 PM EST): Encouraged to follow potassium rich diet-pamphlet on it printed for reference. Aspirin long-term use 12/24/2019 Assessment & Plan (08/15/2024 2:08 PM EDT): Avoid falls, injuries and cuts. Monitor for excessive bruising and bleeding. Assessment & Plan (04/12/2024 1:28 PM EST): Avoid falls, injuries and cuts. Monitor for excessive bruising and bleeding. Assessment & Plan (12/08/2023 1:57 PM EDT): Avoid falls, injuries and cuts. Monitor for excessive bruising and bleeding. Assessment & Plan (09/01/2023 11:19 AM EDT): Avoid falls, injuries and cuts. Monitor for excessive bruising and bleeding. Assessment & Plan (03/12/2022 11:55 AM EST): Avoid falls, injuries and cuts. Monitor for excessive bruising and bleeding. Assessment & Plan (05/14/2021 3:15 PM EDT): Avoid falls, injuries and cuts. Monitor for excessive bruising and bleeding. Assessment & Plan (09/25/2020 2:42 PM EDT): Avoid falls, injuries and cuts. Monitor for excessive bruising and bleeding. Assessment & Plan (08/26/2020 7:39 AM EDT): Avoid falls, injuries and cuts. Monitor for excessive bruising and bleeding. Assessment & Plan (06/04/2020 11:26 AM EDT): Avoid falls, injuries and cuts. Monitor for excessive bruising and bleeding. Assessment & Plan (03/03/2020 2:38 PM EST): Avoid falls, injuries and cuts. Monitor for excessive bruising and bleeding. Assessment & Plan (12/25/2019 10:15 PM EST): Avoid falls, injuries and cuts. Monitor for excessive bruising and bleeding. Nausea 09/19/2019 Assessment & Plan (09/21/2019 11:18 PM EDT): If severe okay to take Zofran every 6-8 hours. He is asking to have the prescription available on hand. Macrocytosis 09/19/2019 Assessment & Plan (12/25/2019 10:13 PM EST): He would benefit from taking vitamin B12 1000 mcg daily to bring the serum level closer to higher end of normal range (800-900 pg/ml) Assessment & Plan (09/21/2019 11:21 PM EDT): Check serum vitamin B12 to make sure that he does not need additional supplementation. Varicose veins of both lower extremities 020 Assessment & Plan (03/12/2022 11:56 AM EST): Continue wearing supportive stockings put first thing in the morning before taking legs off the bed. Assessment & Plan (05/19/2021 7:06 PM EDT): Continue wearing supportive stockings put first thing in the morning before taking legs off the bed. Assessment & Plan (09/21/2019 11:21 PM EDT): I have reassured J Carlos that currently I do not see signs of thrombophlebitis and encouraged him to start wearing supportive stockings put on first thing in the morning before he gets his legs off the bed. Regular walking. Keep body weight in ideal range for his height. On statin therapy 06/08/2018 Assessment & Plan (08/15/2024 2:08 PM EDT): Monitor for muscle tenderness, swelling and weakness Assessment & Plan (04/12/2024 1:28 PM EST): Monitor for muscle tenderness, swelling and weakness Assessment & Plan (12/08/2023 1:56 PM EDT): Monitor for muscle tenderness, swelling and weakness Assessment & Plan (09/01/2023 11:14 AM EDT): Monitor for muscle tenderness, swelling and weakness Assessment & Plan (09/25/2020 2:41 PM EDT): Monitor for muscle tenderness, swelling and weakness Assessment & Plan (08/26/2020 7:38 AM EDT): Monitor for muscle tenderness, swelling and weakness Assessment & Plan (06/04/2020 11:25 AM EDT): Monitor for muscle tenderness, swelling and weakness Assessment & Plan (03/03/2020 2:30 PM EST): Monitor for muscle tenderness, swelling and weakness Assessment & Plan (12/24/2019 2:36 PM EST): Monitor for muscle tenderness, swelling and weakness Assessment & Plan (09/21/2019 11:18 PM EDT): Monitor for muscle tenderness, swelling and weakness Assessment & Plan (04/26/2019 2:01 PM EST): Monitor for muscle tenderness, swelling and weakness Assessment & Plan (02/25/2019 6:50 PM EST): Monitor for muscle tenderness, swelling and weakness Assessment & Plan (09/10/2018 6:02 PM EDT): Take exactly as prescribed. Try not to take together with colchicine. Monitor for muscle tenderness, swelling and weakness Assessment & Plan (06/17/2018 2:16 PM EDT): Monitor for muscle tenderness, swelling and weakness Plantar fasciitis 04/21/2018 Personal history of MO (myocardial infarction) 0 03/13/2018 Assessment & Plan (04/26/2019 2:02 PM EST): Continue cardioprotective medications as prescribed by the general operations agent and follow-up closely as scheduled. Gentle, regular aerobic type of exercise. Assessment & Plan (02/25/2019 6:50 PM EST): Continue cardioprotective medications as prescribed by the general operations agent and follow-up closely as scheduled. Gentle, regular aerobic type of exercise. Assessment & Plan (09/10/2018 6:02 PM EDT): Continue cardioprotective medications as prescribed by the general operations agent and follow-up closely as scheduled. Gentle, regular aerobic type of exercise. Assessment & Plan (06/17/2018 2:16 PM EDT): Continue cardioprotective medications as prescribed by the general operations agent and follow-up closely as scheduled. Gentle, regular aerobic type of exercise. Fibromyalgia 03/13/2018 Assessment & Plan (08/15/2024 2:08 PM EDT): Carefully continue his gabapentin in addition to optimizing his regular exercise routine, body weight and relaxation/meditation sessions . He may benefit from reading book written by Dr Coy augustin addressing management strategies for patients with fibromyalgia utilizing mindfulness approach. Alfie chi versus gentle yoga or Pilates may provide additional benefit. Another useful source of information and managing chronic pain may come from the book written by Dr. Justine No Managing pain before it manages you . Assessment & Plan (04/12/2024 1:28 PM EST): Carefully continue his gabapentin in addition to optimizing his regular exercise routine, body weight and relaxation/meditation sessions . He may benefit from reading book written by Dr Coy augustin addressing management strategies for patients with fibromyalgia utilizing mindfulness approach. Alfie chi versus gentle yoga or Pilates may provide additional benefit. Another useful source of information and managing chronic pain may come from the book written by Dr. Justine No Managing pain before it manages you . Assessment & Plan (12/08/2023 1:56 PM EDT): Carefully continue his gabapentin in addition to optimizing his regular exercise routine, body weight and relaxation/meditation sessions . He may benefit from reading book written by Dr Coy augusitn addressing management strategies for patients with fibromyalgia utilizing mindfulness approach. Alfie chi versus gentle yoga or Pilates may provide additional benefit. Another useful source of information and managing chronic pain may come from the book written by Dr. Justine No Managing pain before it manages you . Assessment & Plan (09/08/2023 9:40 AM EDT): Carefully continue his gabapentin in addition to optimizing his regular exercise routine, body weight and relaxation/meditation sessions . He may benefit from reading book written by Dr Coy augustin addressing management strategies for patients with fibromyalgia utilizing mindfulness approach. Alfie chi versus gentle yoga or Pilates may provide additional benefit. Another useful source of information and managing chronic pain may come from the book written by Dr. Justine No Managing pain before it manages you . Assessment & Plan (05/26/2023 10:09 AM EDT): Carefully continue his gabapentin in addition to optimizing his regular exercise routine, body weight and relaxation/meditation sessions . He may benefit from reading book written by Dr Coy augustin addressing management strategies for patients with fibromyalgia utilizing mindfulness approach. Alfie chi versus gentle yoga or Pilates may provide additional benefit. Assessment & Plan (08/14/2021 12:35 PM EDT): Carefully continue his gabapentin in addition to optimizing his regular exercise routine, body weight and relaxation/meditation sessions . He may benefit from reading book written by Dr Coy augustin addressing management strategies for patients with fibromyalgia utilizing mindfulness approach. Alfie chi versus gentle yoga or Pilates may provide additional benefit. Assessment & Plan (05/19/2021 7:07 PM EDT): Carefully continue his gabapentin in addition to optimizing his regular exercise routine, body weight and relaxation/meditation sessions . He may benefit from reading book written by Dr Coy augustin addressing management strategies for patients with fibromyalgia utilizing mindfulness approach. Alfie chi versus gentle yoga or Pilates may provide additional benefit. Assessment & Plan (09/25/2020 2:41 PM EDT): Carefully continue his gabapentin in addition to optimizing his regular exercise routine, body weight and relaxation/meditation sessions . He may benefit from reading book written by Dr Coy augustin addressing management strategies for patients with fibromyalgia utilizing mindfulness approach. Alfie chi versus gentle yoga or Pilates may provide additional benefit. Assessment & Plan (06/04/2020 11:25 AM EDT): Carefully continue his gabapentin in addition to optimizing his regular exercise routine, body weight and relaxation/meditation sessions . He may benefit from reading book written by Dr Coy augustin addressing management strategies for patients with fibromyalgia utilizing mindfulness approach. Alfie chi versus gentle yoga or Pilates may provide additional benefit. Assessment & Plan (03/03/2020 2:32 PM EST): Carefully continue his gabapentin in addition to optimizing his regular exercise routine, body weight and relaxation/meditation sessions . He may benefit from reading book written by Dr Coy [facility] [employer] [facility] addressing management strategies for patients with fibromyalgia utilizing mindfulness approach. Alfie chi versus gentle yoga or Pilates may provide additional benefit. Assessment & Plan (12/25/2019 10:16 PM EST): Carefully continue his gabapentin in addition to optimizing his regular exercise routine, body weight and relaxation/meditation sessions . He may benefit from reading book written by Dr Coy Maldonado [employer] addressing management strategies for patients with fibromyalgia utilizing mindfulness approach. Alfie chi versus gentle yoga or Pilates may provide additional benefit. Assessment & Plan (09/21/2019 11:17 PM EDT): Carefully continue his gabapentin in addition to optimizing his regular exercise routine, body weight and relaxation/meditation sessions . He may benefit from reading book written by Dr Coy Maldonado [employer] addressing management strategies for patients with fibromyalgia utilizing mindfulness approach. Alfie chi versus gentle yoga or Pilates may provide additional benefit. Assessment & Plan (04/26/2019 2:01 PM EST): Carefully continue his gabapentin in addition to optimizing his regular exercise routine, body weight and relaxation/meditation sessions . He may benefit from reading book written by Dr Coy Maldonado [employer] addressing management strategies for patients with fibromyalgia utilizing mindfulness approach. Alfie chi versus gentle yoga or Pilates may provide additional benefit. Assessment & Plan (02/25/2019 6:49 PM EST): Carefully continue his gabapentin in addition to optimizing his regular exercise routine, body weight and relaxation/meditation sessions . He may benefit from reading book written by Dr Coy Maldon[employer] [facility] addressing management strategies for patients with fibromyalgia utilizing mindfulness approach. Alfie chi versus gentle yoga or Pilates may provide additional benefit. Assessment & Plan (09/10/2018 6:00 PM EDT): Carefully continue his gabapentin in addition to optimizing his regular exercise routine body weight and relaxation/meditation sessions . He may benefit from reading book written by Dr Coy Fisher [employer] [facility] addressing management strategies for patients with fibromyalgia utilizing mindfulness approach. Assessment & Plan (06/17/2018 2:13 PM EDT): We discussed the diagnosis of fibromyalgia, its natural history, and treatment. Specifically, we discussed that treatment requires many interventions and recognition that we are often unable to get patients completely pain free. Management of fibromyalgia requires patient engagement to address any underlying depression, anxiety, or sleep disorder. Further, patients are encouraged to engage in regular physical activity. Some studies have suggested that Alfie Chi is effective. Other physical activity may include water-based aerobics, gentle yoga , regular walking, biking etc. In terms of pharmacotherapy, there are many options, including tricyclic antidepressants, duloxetine, gabapentin or pregabalin, and cyclobenzaprine as well as other similar medications to those listed. In this case, the patient might carefully continue his gabapentin in addition to optimizing his regular exercise routine body weight and relaxation/meditation sessions . He may benefit from reading book written by Dr Coy Fisher [employer] [facility] addressing management strategies for patients with fibromyalgia utilizing mindfulness approach. Complete tear of right rotator cuff 02/07/2018 Infected tooth 12/08/2017 S/P rotator cuff repair 09/01/2017 Overview (09/01/2017): repair of supraspinatus and subscapularis with biceps tenodesis and labral debridement, subacromial decompression 08/18/[address] 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 Reminded not to drink alcohol or take qgly-ukq-orqwwvb NSAIDs while on Eliquis and recently found with bleed and rectal ulcers. Strategy for acute gouty attack reviewed today. Keep diary of gouty attacks with details regarding location, severity, length of inflammation and his treatment strategy. Get labs prior to next visit -standing orders in [facility]. Assessment & Plan (04/12/2024 9:56 PM EST): Continue proper hydration + Low purine diet and decrease daily allopurinol from 300 mg to alternating 300 mg every other day with 200 mg every other day. Reminded not to drink alcohol or take ziqc-iev-kqmunjr NSAIDs while on Eliquis and recently found with duodenal ulcer. Strategy for acute gouty attack reviewed today. Keep diary of gouty attacks with details regarding location, severity, length of inflammation and his treatment strategy. Get labs prior to next visit -standing orders in [facility]. Assessment & Plan (12/08/2023 1:39 PM EDT): Continue proper hydration + Low purine diet and daily allopurinol 300 mg. Reminded not to drink alcohol or take zaie-the-vbmdvde NSAIDs while on Eliquis and recently found with duodenal ulcer. Okay to carefully take colchicine 0.6 mg every other day as tolerated while on Lasix for feet swelling to prevent gouty attacks. Strategy for acute gouty attack reviewed today. Keep diary of gouty attacks with details regarding location, severity, length of inflammation and his treatment strategy. Get labs prior to next visit -standing orders in [facility]. Assessment & Plan (09/08/2023 9:32 AM EDT): Continue proper hydration + Low purine diet and daily allopurinol 300 mg. Reminded not to drink alcohol or take xuds-jeb-byupsci NSAIDs while on Eliquis and recently found with duodenal ulcer. Okay to carefully take colchicine 0.6 mg every other day as tolerated while on Lasix for feet swelling to prevent gouty attacks. Strategy for acute gouty attack reviewed today. Keep diary of gouty attacks with details regarding location, severity, length of inflammation and his treatment strategy. Get labs prior to next visit -standing orders in [facility]. Assessment & Plan (07/03/2023 8:01 PM EDT): Get labs today and prior to next visit -standing orders in [facility]. Continue proper hydration. Reminded not to drink alcohol or take eiua-voy-ezhvbva NSAIDs while on Plavix and since found with duodenal ulcer. Okay to carefully take colchicine 0.6 mg every other day as tolerated while on Lasix for feet swelling to prevent gouty attacks. Low purine diet. Strategy for acute gouty attack reviewed today. Keep diary of gouty attacks with details regarding location, severity, length of inflammation and his treatment strategy. Assessment & Plan (05/26/2023 10:48 PM EDT): Get labs prior to next visit in 12 wks-standing orders in [facility]. Continue proper hydration. Reminded not to drink alcohol or take geqa-ihf-ieadhlp NSAIDs while on Plavix. Low purine diet. Strategy for acute gouty attack reviewed today. Keep diary of gouty attacks with details regarding location, severity, length of inflammation and his treatment strategy. Assessment & Plan (07/16/2022 12:26 PM EDT): Get labs prior to next visit in 12 wks and make sure that I get the copy prior to visit or bring a copy himself if not getting it at [facility] associated location. Continue proper hydration. Reminded not to drink alcohol or take hcre-sjr-mxeaiqi NSAIDs while on Plavix. Low purine diet. Strategy for acute gouty attack reviewed today. Keep diary of gouty attacks with details regarding location, severity, length of inflammation and his treatment strategy. Assessment & Plan (03/12/2022 11:50 AM EST): Get labs prior to next visit in 12 wks and make sure that I get the copy prior to visit or bring a copy himself if not getting it at [facility] associated location. Continue proper hydration. Reminded not to drink alcohol or take lnog-afc-vephljw NSAIDs while on Plavix. Low purine diet. Strategy for acute gouty attack reviewed today. Keep diary of gouty attacks with details regarding location, severity, length of inflammation and his treatment strategy. Assessment & Plan (08/14/2021 12:30 PM EDT): Get labs prior to next visit in 12 wks and make sure that I get the copy prior to visit or bring a copy himself if not getting it at [facility] associated location. Continue proper hydration. Reminded not to drink alcohol or take vdax-ype-qbkvaqo NSAIDs while on Plavix. Low purine diet. Strategy for acute gouty attack reviewed today. Keep diary of gouty attacks with details regarding location, severity, length of inflammation and his treatment strategy. Assessment & Plan (05/19/2021 7:06 PM EDT): Get labs prior to next visit in 12 wks and make sure that I get the copy prior to visit or bring a copy himself if not getting it at [facility] associated location. Continue proper hydration. Reminded not to drink alcohol or take gqce-bcb-phumqas NSAIDs while on Plavix. Low purine diet. Strategy for acute gouty attack reviewed today. Keep diary of gouty attacks with details regarding location, severity, length of inflammation and his treatment strategy. Assessment & Plan (09/25/2020 2:40 PM EDT): Get labs prior to next visit in 6 wks and make sure that I get the copy prior to visit or bring a copy himself if not getting it at [facility] associated location. Continue proper hydration. Reminded not to drink alcohol or take kfak-zns-svzfekq NSAIDs while on Plavix. Low purine diet. Strategy for acute gouty attack reviewed today. Keep diary of gouty attacks with details regarding location, severity, length of inflammation and his treatment strategy. Assessment & Plan (08/26/2020 7:37 AM EDT): Get labs prior to next visit in 6 wks and make sure that I get the copy prior to visit or bring a copy himself if not getting it at [facility] associated location. Continue proper hydration. Reminded not to drink alcohol or take hfhn-gxq-xpuevwb NSAIDs while on Plavix. Low purine diet. Strategy for acute gouty attack reviewed today. Keep diary of gouty attacks with details regarding location, severity, length of inflammation and his treatment strategy. Assessment & Plan (06/14/2020 4:06 PM EDT): Get labs prior to next visit in 2 months and make sure that I get the copy prior to visit or bring a copy himself if not getting it at [facility] associated location. Continue proper hydration. Reminded not to drink alcohol or take xbwo-uzf-bxfydrd NSAIDs while on Plavix. Carefully continue 0.5 tablet colchicine 0.6 mg daily . Low purine diet. Strategy for acute gouty attack reviewed today. Keep diary of gouty attacks with details regarding location, severity, length of inflammation and his treatment strategy. Assessment & Plan (03/03/2020 2:29 PM EST): Get labs prior to next visit in 3 months. Continue proper hydration. Reminded not to drink alcohol or take wyxw-fvx-kpvtpfy NSAIDs while on Plavix. Return to 0.5 tablet colchicine 0.6 mg daily . Reviewed the need for limiting high purine products around the holidays such as turkey gravy, beer etc. Low purine diet. Strategy for acute gouty attack reviewed today. Keep diary of gouty attacks with details regarding location, severity, length of inflammation and his treatment strategy. Assessment & Plan (12/25/2019 10:15 PM EST): Get labs prior to next visit in 3 months. Continue proper hydration. Reminded not to drink alcohol or take swmd-sbz-pfslyzr NSAIDs while on Plavix. Return to 0.5 tablet colchicine 0.6 mg daily . Reviewed the need for limiting high purine products around the holidays such as turkey gravy, beer etc. Low purine diet. Strategy for acute gouty attack reviewed today. Keep diary of gouty attacks with details regarding location, severity, length of inflammation and his treatment strategy. Assessment & Plan (09/19/2019 11:18 AM EDT): Get labs prior to next visit in 3 months. Continue proper hydration. Reminded not to drink alcohol or take vvnq-oaz-vwaioxx NSAIDs while on Plavix. Return to 0.5 tablet colchicine 0.6 mg daily . Low purine diet. Strategy for acute gouty attack reviewed today. Keep diary of gouty attacks with details regarding location, severity, length of inflammation and his treatment strategy. Assessment & Plan (04/26/2019 1:58 PM EST): Get labs prior to next visit in 3 months. Continue proper hydration. Reminded not to drink alcohol or take gvas-ygy-cvxglhk NSAIDs while on Plavix. Return to 0.5 tablet colchicine 0.6 mg daily . Low purine diet. Strategy for acute gouty attack reviewed today. Keep diary of gouty attacks with details regarding location, severity, length of inflammation and his treatment strategy. Assessment & Plan (02/25/2019 6:47 PM EST): Get labs prior to next visit in 3 months. Continue proper hydration. Reminded not to drink alcohol or take crug-fso-tkkrynk NSAIDs while on Plavix. Return to 0.5 tablet colchicine 0.6 mg daily . Low purine diet. Strategy for acute gouty attack reviewed today. Keep diary of gouty attacks with details regarding location, severity, length of inflammation and his treatment strategy. Assessment & Plan (09/10/2018 6:01 PM EDT): Get labs prior to next visit in 2 months. Continue proper hydration. Reminded not to drink alcohol or take dtol-wmi-fbqbvyb NSAIDs while on Plavix. Return to 0.5 tablet colchicine 0.6 mg daily . Low purine diet. Strategy for acute gouty attack reviewed today. Keep diary of gouty attacks with details regarding location, severity, length of inflammation and his treatment strategy. Assessment & Plan (06/17/2018 2:07 PM EDT): Get labs prior to next visit in 3 months. Continue proper hydration. Reminded not to drink alcohol or take tmrf-kuf-zfimlfw NSAIDs while on Plavix. Reduce colchicine 0.3 mg= 0.5 tablet of 0.6 mg colchicine from daily to every other day. Low purine diet. Strategy for acute gouty attack reviewed today. On allopurinol therapy 03/16/2017 Assessment & Plan (08/15/2024 1:50 PM EDT): Take exactly as prescribed. Keep well-hydrated. Monitor for any skin rashes, discoloration, abdominal pain or unusual bruising. Return for monitoring labs every 2-3 months as requested. Assessment & Plan (04/12/2024 1:28 PM EST): Take exactly as prescribed. Keep well-hydrated. Monitor for any skin rashes, discoloration, abdominal pain or unusual bruising. Return for monitoring labs every 2-3 months as requested. Assessment & Plan (12/08/2023 1:56 PM EDT): Take exactly as prescribed. Keep well-hydrated. Monitor for any skin rashes, discoloration, abdominal pain or unusual bruising. Return for monitoring labs every 2-3 months as requested. Assessment & Plan (09/01/2023 11:14 AM EDT): Take exactly as prescribed. Keep well-hydrated. Monitor for any skin rashes, discoloration, abdominal pain or unusual bruising. Return for monitoring labs every 2-3 months as requested. Assessment & Plan (07/03/2023 8:04 PM EDT): Take exactly as prescribed. Keep well-hydrated. Monitor for any skin rashes, discoloration, abdominal pain or unusual bruising. Return for monitoring labs every 2-3 months as requested. Assessment & Plan (05/26/2023 10:09 AM EDT): Take exactly as prescribed. Keep well-hydrated. Monitor for any skin rashes, discoloration, abdominal pain or unusual bruising. Return for monitoring labs every 2-3 months as requested. Assessment & Plan (07/16/2022 12:27 PM EDT): Take exactly as prescribed. Keep well-hydrated. Monitor for any skin rashes, discoloration, abdominal pain or unusual bruising. Return for monitoring labs every 2-3 months as requested. Assessment & Plan (03/12/2022 11:56 AM EST): Take exactly as prescribed. Keep well-hydrated. Monitor for any skin rashes, discoloration, abdominal pain or unusual bruising. Return for monitoring labs every 2-3 months as requested. Assessment & Plan (08/14/2021 12:35 PM EDT): Take exactly as prescribed. Keep well-hydrated. Monitor for any skin rashes, discoloration, abdominal pain or unusual bruising. Return for monitoring labs every 2-3 months as requested. Assessment & Plan (05/14/2021 3:16 PM EDT): Take exactly as prescribed. Keep well-hydrated. Monitor for any skin rashes, discoloration, abdominal pain or unusual bruising. Return for monitoring labs every 2-3 months as requested. Assessment & Plan (09/25/2020 2:41 PM EDT): Take exactly as prescribed. Keep well-hydrated. Monitor for any skin rashes, discoloration, abdominal pain or unusual bruising. Return for monitoring labs every 2-3 months as requested. Assessment & Plan (08/26/2020 7:38 AM EDT): Take exactly as prescribed. Keep well-hydrated. Monitor for any skin rashes, discoloration, abdominal pain or unusual bruising. Return for monitoring labs every 2-3 months as requested. Assessment & Plan (06/04/2020 11:25 AM EDT): Take exactly as prescribed. Keep well-hydrated. Monitor for any skin rashes, discoloration, abdominal pain or unusual bruising. Return for monitoring labs every 2-3 months as requested. Assessment & Plan (03/03/2020 2:32 PM EST): Take exactly as prescribed. Keep well-hydrated. Monitor for any skin rashes, discoloration, abdominal pain or unusual bruising. Return for monitoring labs every 2-3 months as requested. Assessment & Plan (12/24/2019 2:37 PM EST): Take exactly as prescribed. Keep well-hydrated. Monitor for any skin rashes, discoloration, abdominal pain or unusual bruising. Return for monitoring labs every 2-3 months as requested. Assessment & Plan (09/21/2019 11:18 PM EDT): Take exactly as prescribed. Keep well-hydrated. Monitor for any skin rashes, discoloration, abdominal pain or unusual bruising. Return for monitoring labs every 2-3 months as requested. Assessment & Plan (04/26/2019 2:01 PM EST): Take exactly as prescribed. Keep well-hydrated. Monitor for any skin rashes, discoloration, abdominal pain or unusual bruising. Return for monitoring labs every 2-3 months as requested. Assessment & Plan (02/25/2019 6:49 PM EST): Take exactly as prescribed. Keep well-hydrated. Monitor for any skin rashes, discoloration, abdominal pain or unusual bruising. Return for monitoring labs every 2-3 months as requested. Assessment & Plan (09/10/2018 6:00 PM EDT): Take exactly as prescribed. Keep well-hydrated. Monitor for any skin rashes, discoloration, abdominal pain or unusual bruising. Return for monitoring labs every 2-3 months as requested. Assessment & Plan (06/17/2018 2:13 PM EDT): Take exactly as prescribed. Keep well-hydrated. Monitor for any skin rashes, discoloration, abdominal pain or unusual bruising. Return for monitoring labs every 2-3 months as requested. Primary osteoarthritis involving multiple joints 03/16/2017 Assessment & Plan (08/15/2024 1:47 PM EDT): Continue joint protection, energy conservation. Avoid falls, injuries, overuse. Gentle, regular exercise routine. Topical cream versus patch as needed. Keep body weight in ideal range for his height (closer to 190 pounds). Because of severe pain across L 2nd- 4th toes I requested x-rays to make sure that there is no structural abnormality such as stress fracture that was suspected based on eccentric cortical thickening of the second through fourth metatarsals. Due to his progressive low back, left-sided hip and feet pain that prevents him from daily activities he is interested in comprehensive pain management strategies therefore I have previously offered him a consultation at [facility] that he did not find very helpful. To reduce pain in his feet I encouraged him to use nightly foot spa with Epsom salt and gentle ROM exercises, followed by gentle massage and topical Arnica, Voltaren, Biofreeze versus Blue emu versus Malian dream. I encouraged him to carefully build up the dose of gabapentin at bedtime so he can sleep more restfully during the night from 900 mg to 1200 mg for a total of 2100 mg daily. Call if worse or with questions. Assessment & Plan (04/12/2024 9:50 PM EST): Continue joint protection, energy conservation. Avoid falls, injuries, overuse. Gentle, regular exercise routine. Topical cream versus patch as needed. Keep body weight in ideal range for his height (closer to 190 pounds). Because of severe pain across L 2nd- 4th toes I requested x-rays to make sure that there is no structural abnormality such as stress fracture that was suspected based on eccentric cortical thickening of the second through fourth metatarsals. Due to his progressive low back, left-sided hip and feet pain that prevents him from daily activities he is interested in comprehensive pain management strategies therefore I have previously offered him a consultation at [facility] that he did not find very helpful. To reduce pain in his feet I encouraged him to use nightly foot spa with Epsom salt and gentle ROM exercises, followed by gentle massage and topical Arnica, Voltaren, Biofreeze versus Blue emu versus Malian dream. I encouraged him to carefully build up the dose of gabapentin at bedtime so he can sleep more restfully during the night from 900 mg to 1200 mg for a total of 2100 mg daily. Call if worse or with questions. Assessment & Plan (12/08/2023 1:39 PM EDT): Continue joint protection, energy conservation. Avoid falls, injuries, overuse. Gentle, regular exercise routine. Topical cream versus patch as needed. Keep body weight in ideal range for his height (closer to 190 pounds). Because of severe pain across L 2nd- 4th toes I requested x-rays to make sure that there is no structural abnormality such as stress fracture that was suspected based on eccentric cortical thickening of the knees second through fourth metatarsals. Due to his progressive low back, left-sided hip and feet pain that prevents him from daily activities he is interested in comprehensive pain management strategies therefore I have previously offered him a consultation at [facility] that he did not find very helpful. To reduce pain in his feet I encouraged him to use nightly foot spa with Epsom salt and gentle ROM exercises, followed by gentle massage and topical Arnica, Voltaren, Biofreeze versus Blue emu versus Malian dream. I encouraged him to carefully build up the dose of gabapentin at bedtime so he can sleep more restfully during the night from 900 mg to 1200 mg for a total of 2100 mg daily. Call if worse or with questions. Assessment & Plan (09/08/2023 9:44 AM EDT): Continue joint protection, energy conservation. Avoid falls, injuries, overuse. Gentle, regular exercise routine. Topical cream versus patch as needed. Keep body weight in ideal range for his height (closer to 190 pounds). Because of severe pain across L 2nd- 4th toes I requested x-rays to make sure that there is no structural abnormality such as stress fracture that was suspected based on eccentric cortical thickening of the knees second through fourth metatarsals. Due to his progressive low back, left-sided hip and feet pain that prevents him from daily activities he is interested in comprehensive pain management strategies therefore I have previously offered him a consultation at [facility] that he did not find very helpful. To reduce pain in his feet I encouraged him to use nightly foot spa with Epsom salt and gentle ROM exercises, followed by gentle massage and topical Arnica, Voltaren, Biofreeze versus Blue emu versus Malian dream. I encouraged him to carefully build up the dose of gabapentin at bedtime so he can sleep more restfully during the night from 900 mg to 1200 mg for a total of 2100 mg daily. Call if worse or with questions. Assessment & Plan (07/03/2023 8:04 PM EDT): Continue joint protection, energy conservation. Avoid falls, injuries, overuse. Gentle, regular exercise routine. Topical cream versus patch as needed. Keep body weight in ideal range for his height (closer to 190 pounds). Because of severe pain across L 2nd- 4th toes I request x-rays to make sure that there is no structural abnormality such as stress fracture. Due to his progressive low back, left-sided hip and feet pain that prevents him from daily activities he is interested in comprehensive pain management strategies therefore I have previously offered him a consultation at [facility]. Call if worse or with questions. Assessment & Plan (05/26/2023 10:49 PM EDT): Joint protection, energy conservation. Avoid falls, injuries, overuse. Gentle, regular exercise routine. Topical cream versus patch as needed. Keep body weight in ideal range for his height (closer to 190 pounds). Due to his progressive low back, left-sided hip and feet pain that prevents him from daily activities despite current pain medication regimen he is interested in comprehensive pain management strategies therefore I have previously offered him a consultation at [facility]. Call if worse or with questions. Assessment & Plan (07/27/2022 10:57 AM EDT): Joint protection, energy conservation. Avoid falls, injuries, overuse. Gentle, regular exercise routine. Topical cream versus patch as needed. Keep body weight in ideal range for his height (closer to 190 pounds). Due to his progressive low back, left-sided hip and feet pain that prevents him from daily activities despite current pain medication regimen he is interested in comprehensive pain management strategies therefore I offered him a consultation at [facility]. Call if worse or with questions. Assessment & Plan (03/12/2022 11:55 AM EST): Joint protection, energy conservation. Avoid falls, injuries, overuse. Gentle, regular exercise routine. Topical cream versus patch as needed. Keep body weight in ideal range for his height (closer to 190 pounds). Call if worse or with questions. Assessment & Plan (08/14/2021 12:31 PM EDT): Joint protection, energy conservation. Avoid falls, injuries, overuse. Gentle, regular exercise routine. Topical cream versus patch as needed. Keep body weight in ideal range for his height (closer to 190 pounds). Call if worse or with questions. Assessment & Plan (05/14/2021 3:15 PM EDT): Joint protection, energy conservation. Avoid falls, injuries, overuse. Gentle, regular exercise routine. Topical cream versus patch as needed. Keep body weight in ideal range for his height (closer to 190 pounds). Call if worse or with questions. Assessment & Plan (09/25/2020 2:40 PM EDT): Joint protection, energy conservation. Avoid falls, injuries, overuse. Gentle, regular exercise routine. Topical cream versus patch as needed. Keep body weight in ideal range for his height (closer to 190 pounds). Call if worse or with questions. Assessment & Plan (08/26/2020 7:37 AM EDT): Joint protection, energy conservation. Avoid falls, injuries, overuse. Gentle, regular exercise routine. Topical cream versus patch as needed. Keep body weight in ideal range for his height (closer to 190 pounds). Call if worse or with questions. Assessment & Plan (06/04/2020 11:24 AM EDT): Joint protection, energy conservation. Avoid falls, injuries, overuse. Gentle, regular exercise routine. Topical cream versus patch as needed. Keep body weight in ideal range for his height (closer to 190 pounds). Call if worse or with questions. Assessment & Plan (03/03/2020 2:29 PM EST): Joint protection, energy conservation. Avoid falls, injuries, overuse. Gentle, regular exercise routine. Topical cream versus patch as needed. Keep body weight in ideal range for his height (closer to 190 pounds). Call if worse or with questions. Assessment & Plan (12/24/2019 2:36 PM EST): Joint protection, energy conservation. Avoid falls, injuries, overuse. Gentle, regular exercise routine. Topical cream versus patch as needed. Keep body weight in ideal range for his height (closer to 190 pounds). Call if worse or with questions. Assessment & Plan (09/21/2019 11:16 PM EDT): Joint protection, energy conservation. Avoid falls, injuries, overuse. Gentle, regular exercise routine. Topical cream versus patch as needed. Keep body weight in ideal range for his height (closer to 190 pounds). Call if worse or with questions. Assessment & Plan (04/26/2019 1:59 PM EST): Joint protection, energy conservation. Avoid falls, injuries, overuse. Gentle, regular exercise routine. Topical cream versus patch as needed. Keep body weight in ideal range for his height (closer to 190 pounds). Call if worse or with questions. Assessment & Plan (02/25/2019 6:47 PM EST): Joint protection, energy conservation. Avoid falls, injuries, overuse. Gentle, regular exercise routine. Topical cream versus patch as needed. Keep body weight in ideal range for his height (closer to 190 pounds). Call if worse or with questions. Assessment & Plan (09/10/2018 5:58 PM EDT): Joint protection, energy conservation. Avoid falls, injuries, overuse. Gentle, regular exercise routine. Topical cream versus patch as needed. Keep body weight in ideal range for his height (closer to 190 pounds). Call if worse or with questions. Assessment & Plan (06/17/2018 2:09 PM EDT): Joint protection, energy conservation. Avoid falls, injuries, overuse. Gentle, regular exercise routine. Topical cream versus patch as needed. Keep body weight in ideal range for his height (closer to 190 pounds). Call if worse or with questions. 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 Monitor for excessive bruising and bleeding. Assessment & Plan (04/26/2019 2:00 PM EST): Avoid falls, injuries and cuts. Monitor for excessive bruising and bleeding. Assessment & Plan (02/25/2019 6:51 PM EST): Avoid falls, injuries and cuts. Monitor for excessive bruising and bleeding. Trochanteric bursitis, left hip 12/08/2017 07/27/2022 On colchicine therapy 03/16/20172023 Assessment & Plan (08/29/2021 8:57 PM EDT): Reviewed strategy for acute gouty attack in details and reminded not to take more than 3 colchicine tablets within 24 hours during gout attack. He actually did not require colchicine for longer than couple of years. Assessment & Plan (06/04/2020 11:25 AM EDT): Take 0.5 tab Colchicine 0.6 mg daily Monitor for muscle tenderness or weakness. Keep well-hydrated. Reminded not to take more than 3 colchicine tablets within 24 hours during gout attack. Assessment & Plan (03/04/2020 8:23 PM EST): Take 0.5 tab Colchicine 0.6 mg daily Monitor for muscle tenderness or weakness. Keep well-hydrated. Reminded not to take more than 3 colchicine tablets within 24 hours during gout attack. Assessment & Plan (12/24/2019 2:36 PM EST): Take 0.5 tab Colchicine 0.6 mg daily Monitor for muscle tenderness or weakness. Keep well-hydrated. Reminded not to take more than 3 colchicine tablets within 24 hours. Assessment & Plan (09/21/2019 11:18 PM EDT): Take 0.5 tab Colchicine 0.6 mg daily Monitor for muscle tenderness or weakness. Keep well-hydrated. Reminded not to take more than 3 colchicine tablets within 24 hours. Assessment & Plan (04/26/2019 2:01 PM EST): Take 0.5 tab Colchicine 0.6 mg daily Monitor for muscle tenderness or weakness. Keep well-hydrated. Reminded not to take more than 3 colchicine tablets within 24 hours. Assessment & Plan (02/25/2019 6:50 PM EST): Take 0.5 tab Colchicine 0.6 mg daily Monitor for muscle tenderness or weakness. Keep well-hydrated. Reminded not to take more than 3 colchicine tablets within 24 hours. Assessment & Plan (09/07/2018 11:26 AM EDT): Take 0.5 tab Colchicine 0.6 mg daily Assessment & Plan (06/17/2018 2:15 PM EDT): Continue 0.5 tablet of colchicine 0.6 mg every other day. Keep diary of any acute gouty attack and his approach. Keep well-hydrated. Patient educated to monitor for muscle tenderness, swelling or atrophy/weakness, skin rashes or discoloration, abdominal pain, unusual bruising or fatigue. He is reminded that I want to make sure that he did not have any gouty attack for a good 12 months before tapering him off of colchicine. LFT elevation 03/16/2017 08/15/2017 Encounters Date Type Department Care Team Description 12/27/2024 Telephone [facility] Rheumatology [address] [place] [address] [place] [address] Gisela Martinez MD Same day Can (Pt sick ) 12/26/2024 Orders Only [facility] Rheumatology [address] [place] [address] [place] [address] Rebeka Stanton CMA Idiopathic chronic gout of multiple sites without tophus; On allopurinol therapy 12/10/2024 Telephone [facility], Allergy [facility] Critical [facility] Medicine [address] [place] [address] Diann Gregorio Labs 11/01/2024 Refill [facility] Rheumatology [address] [place] [address] [place] [address] Rebecca Austin MA 10/11/2024 Refill [facility] Rheumatology [address] [place] [address] [place] [address] Gisela Martinez MD Medication Refill from Last 3 Months Family History Medical History Relation Comments Infl. arthritis Father Infl. arthritis Mother Infl. arthritis Unspecified Relation Status Comments Father Mother Unspecified Social History Tobacco Use Types Packs/Day Years Used Date Smoking Tobacco: Never Smokeless Tobacco: Never Tobacco Cessation:Counseling Given: Not Answered Alcohol Use Standard Drinks/Week Comments Yes 0 [...] Sign Reading Time Taken Comments Blood Pressure 138/58 08/15/2024 1:10 PM EDT Pulse 70 04/12/2024 1:04 PM EST Temperature 36.5 C (97.7 F) 03/03/2020 1:42 PM EST Respiratory Rate 16 03/12/2022 11:17 AM EST Oxygen Saturation 93% 04/12/2024 1:04 PM EST Inhaled Oxygen Concentration - - Weight 83.1 kg (183 lb 3.2 oz) 08/15/2024 1:10 P M EDT Height 185.4 cm (6' 1 ) 04/12/2024 1:04 PM EST Body Mass Index 24.17 04/12/2024 1:04 PM EST Plan of Treatment Upcoming Encounters Date Type Department Care Team (Late st Contact Info) Description 01/04/2025 9:00 AM EST Office Visit [facility] Rheumatology [address] [place] [address] Gisela Martinez MD [address] [facility], [address] [place] [address] [email or web address] Health Maintenance Due Date Last Done Comments Adult Td,Tdap Booster 1950 LIPID PANEL 1948 COVID-19 VACCINE (#1) 1953 DEPRESSION SCREENING 1960 HEPATITIS C SCREENING 1966 ZOSTER VACCINES (1 of 2) 10/10/1967 PNEUMOCOCCAL VACCINES (50+ years) (2 of 2 - PCV) 12/16/2011 12/15/2010 RSV VACCINE (1 - 1-dose 75+ series) 10/10/2023 POTASSIUM LEVEL 06/28/2024 06/29/2023, 04/22, 03/16/2021, Additional history exists INFLUENZA VACCINE (#1) 2024 12/01/2018, 2014 CREATININE LEVEL 12/20/2025 12/20/2024, , 06/06/2024, Additional history exists SMOKING STATUS SCREENING (Once After 26 Yrs) Completed 08/15/2024 HEPATITIS A VACCINES Aged Out No long er eligible based on patient's age to complete this topic HIB VACCINES Aged Out No longer eligi ble based on patient's age to complete this topic IPV VACCINES Aged Out No longer eligi ble based on patient's age to complete this topic MENINGOCOCCAL VACCINES (ACWY) Aged Out No longer eligible based on patient's age to complete this topic MENINGOCOCCAL VACCINES (B) Aged Out N o longer eligible based on patient's age to complete this topic Medical Devices Implanted Type Area Medical Office Representative Device Identifier Shelf Expiration Date Model / Serial / Lot Screw Screw Description:Right thumb. [place] Suture 4.5mm Arthroscopy Reelx Stt Peek Stainless Steel Core Knotless Sharp Tip Expandable Sterile Bx/5ea - [id number] Implanted:Qty: 3 on 08/18/2017 by Ras Wong DO at [facility] Right: Shoulder [employer] 05/11/2019 [id number] / / [id number] [place] Suture 2 5.5mm Intraline Titanium Force Fiber - [id number] Implanted:Qty: 1 on 08/18/2017 by Ras Wong DO at [facility] Right: Shoulder [employer] 01/30/2019 [id number] / / [id number] [place] Suture 2 5.5mm Intraline Titanium Force Fiber - [id number] Implanted:Qty: 1 on 08/18/2017 by Ras Wong DO at 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 from Last 3 Months or Most Recently Relevant to Health Maintenance Results * Uric Acid (12/20/2024 2:06 PM EDT) Blood (Blood) Gisela Martinez MD LAB BLOOD BKR ORDERABLES Final Result Performing Organization Address [facility] Co de Phone Number EXTERNAL NON-INTERFACED REF LAB * CBC and Differential (12/20/2024 2:06 PM EDT) Blood (Blood) us Gisela Martinez MD LAB BLOOD BKR ORDERABLES Edited Result - Final Performing Organization Address [facility]/ZIP Co de Phone Number EXTERNAL NON-INTERFACED REF LAB * Erythrocyte Sedimentation Rate (ESR) (12/20/2024 2:06 PM EDT) Blood (Blood) us Gisela Martinez MD LAB BLOOD BKR ORDERABLES Final Result Performing Organization Address [facility] Co de Phone Number EXTERNAL NON-INTERFACED REF LAB * C-Reactive Protein (CRP) (12/20/2024 2:06 PM EDT) Blood (Blood) Gisela Martinez MD LAB BLOOD BKR ORDERABLES Final Result EXTERNAL NON-INTERFACED REF LAB * Comprehensive Metabolic Panel (CMP) (12/20/2024 2:05 PM EDT) Only the most recent of2 resultswithin the time period is included. Blood (Blood) Gisela Martinez MD LAB BLOOD BKR ORDERABLES Final Result Performing Organization Address City/[facility] Co de Phone Number EXTERNAL NON-INTERFACED REF LAB from Last 3 Months or Most Recently Relevant to Health Maintenance Insurance MEDICARE PART A & B [employer] MEDICARE SUPPLEMENT MEDICARE PART A & B [employer] MEDICARE SUPPLEMENT MEDICARE PART A & B MEDICARE PART A & B MEDICARE PART A & B [employer] MEDICARE SUPPLEMENT MEDICARE PART A & B MEDICARE PART A & B MEDICARE SUPPLEMENT MEDICARE PART A & B MEDICARE SUPPLEMENT MEDICARE PART A & B [facility] MEDICARE SUPPLEMENT Advance Directives For more information, please contact: [phone] (9AM - 5PM [facility]) Documents on File Type Date Recorded Patient Jumpbasting Facing Baster Expl anation Healthcare Proxy 08/19/2017 11:46 AM * Full Code (Presumed) (Latest Code Status on File) Date Activated Date Inactivated Comments 08/18/2017 6:51 AM 08/18/2017 5:15 PM Care Teams 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 Relationship Specialty Start Date End Date Larissa Dillon MD [address] [place] [address] [place] [address] PCP - General 12/09/16 Larissa Dillon MD [address] [place] [address] [address] [place] [address] Historical LMR Provider 12/11/16 Gisela Martinez MD [address] [place] [address], [address] [place] [address] [email or web address] Historical LMR Provider 12/11/16 Kaela Méndez PA [address] [place] [address] [place] [address] [email or web address] 06/23/20 Additional Source Comments The information contained in this document represents components of the legal health record. It is not the complete legal health record.[facility]
--- OUTSIDE RECORDS SUMMARY | 2025-02-04 19:00 | XMS_ITS | Clinical Summary ---
Author Organization Unknown Care Team Providers Care Wing Mailer Machine Operator Name Role Phone [facility] OFF[facility] CLAIM SPECIALIST, KARSON Unavailable Unavailable STAGER RN, KRISTEN Unavailable Unavailable MITCH EVENT DECORATOR/JAVA DESIGNER, ALEM Unavailable Unava gal CHAPMAN RN, JOSEFINA Unavailable Unavailable Payers Payer Name Policy Type Policy Number Effective Date Expira tion Date MEDICARE - [facility] - [facility] [id number] Problems Condition Name Condition Details Condition Category Status Onset Date Resolution Date Last Treatment Date Treating Clinician Comments PRESSURE ULCER OF OTHER SITE, STAGE 3 Active 2024-02 00:00: 00 HYPERTENSIVE CHRONIC KIDNEY DISEASE W STG 1-4/UNSP CHR KDNY Active 02-21 00:00: 00 CHRONIC KIDNEY DISEASE, STAGE 3A Active 02-21 00:00: 00 UNSP DEMENTIA, UNSPECIFIED SEVERITY, WITH MOOD DISTURB Active 02-21 00:00: 00 DEPRESSION, UNSPECIFIED Active 02-21 00:00: 00 UNSPECIFIED DEMENTIA, UNSPECIFIED SEVERITY, WITH ANXIETY Active 02-21 00:00: 00 UNSP DEMENTIA, UNSP SEVERITY, WITH OTHER BEHAVIORAL DISTURB Active 02-21 00:00: 00 OBSTRUCTIVE SLEEP APNEA (ADULT) (PEDIATRIC) Active 02-21 00:00: 00 VIRAL INTESTINAL INFECTION, UNSPECIFIED Active 02-21 00:00: 00 UNSP FRACTURE OF T11-T12 VERTEBRA, SUBS FOR FX W ROUTN HEAL Active 02-21 00:00: 00 HYPOKALEMIA Active 02-21 00:00: 00 GOUT, UNSPECIFIED Active 02-21 00:00: 00 HYPERLIPIDEM IA, UNSPECIFIED Active 02-21 00:00: 00 ATHSCL HEART DISEASE OF [place] CORONARY ARTERY W/O ANG PCTRS Active 02-21 00:00: 00 PENITENTIARY (CURRENT) USE OF ASPIRIN Active 02-21 00:00: 00 Allergies, Adverse Reactions, Alerts Allergy Name Allergy Type Status Severity Reaction(s) Onset Date Inactive Date Treating Clinician Comments NKA Propensity to adverse reactions Active 2024-11 14:12:4 1 Medications Ordered Medication Name Filled Medication Name Start Date Stop Date Current Medication? Ordering Clinician Indication Dosage Frequency Signature (SIG) Comments Components oxycodone 5 mg tablet 11-03 00:00: 00 05-02 23:59 :00 No [id number] 1.5 tablet 3 TIMES DAILY 1.5 tablet 3 TIMES DAILY (route: oral) Med Classific ation: Analgesic , Anti-infl ammatory or Antipyret ic atorvastati n 80 mg tablet 10-31 00:00: 00 05-02 23:59 :00 No [id number] 1 tablet DAILY 1 tablet DAILY (route: oral) Med Classific ation: Cardiovas cular Therapy Agents testosteron e cypionate 200 mg/mL intramuscul ar oil 10-29 00:00: 00 05-02 23:59 :00 No [id number] 40 mg 40 MG (02 ML) SUBCUTANEO USLY EVERY WEEK 40 mg 40 MG (02 ML) SUBCUTANEO USLY EVERY WEEK (route: intramuscu lar) Med Classific ation: Endocrine fluoxetine 20 mg capsule 10-28 00:00: 00 11-24 23:59 :00 No [id number] Per instruc tions EVERY DAY Per instructio ns EVERY DAY (route: oral) Med Classific ation: Central Nervous System Agents gabapentin 300 mg capsule 10-27 00:00: 00 05-02 23:59 :00 No [id number] 2 capsule 2 TIMES DAILY 2 capsule 2 TIMES DAILY (route: oral) Med Classific ation: Central Nervous System Agents allopurinol 300 mg tablet 2021-02 005 00:00: 00 05-02 23:59 :00 No [id number] 1 tablet DAILY 1 tablet DAILY (route: oral) Med Classific ation: Gout and Hyperuric emia Therapy amlodipine 5 mg tablet 2021-02 0-05 00:00: 00 05-02 23:59 :00 No [id number] 1 tablet DAILY 1 tablet DAILY (route: oral) Med Classific ation: Cardiovas cular Therapy Agents aspirin 81 mg tablet,rochelle yed release 2021-02 0-05 00:00: 00 05-02 23:59 :00 No [id number] 2 tablet DAILY 2 tablet DAILY (route: oral) Med Classific ation: Hematolog ical Agents carvedilol 12.5 mg tablet 2021-02 0-05 00:00: 00 05-02 23:59 :00 No [id number] 1 tablet 2 TIMES DAILY 1 tablet 2 TIMES DAILY (route: oral) Med Classific ation: Cardiovas cular Therapy Agents dorzolamide 22.3 mg-timolol 6.8 mg/mL eye drops 2021-02 0-05 00:00: 00 05-02 23:59 :00 No [id number] 1 drops 2 TIMES DAILY 1 drops 2 TIMES DAILY (route: ophthalmic (eye)) Med Classific ation: Ophthalmi c Agents Glucosamine Chondroitin 550 mg-30 mg-1 mg capsule 2021-02 0-05 00:00: 00 05-02 23:59 :00 No [id number] 1 capsule 2 TIMES DAILY 1 capsule 2 TIMES DAILY (route: oral) Med Classific ation: Alternati ve Therapy latanoprost (PF) 0.005 % eye drops 2021-02 0-05 00:00: 00 05-02 23:59 :00 No [id number] 1 drops BEDTIME 1 drops BEDTIME (route: ophthalmic (eye)) Med Classific ation: Ophthalmi c Agents mecobalamin (vitamin B12) 1,000 mcg disintegrat ing tablet,subl ingual 2021-02 0-05 00:00: 00 05-02 23:59 :00 No [id number] 1 tablet DAILY 1 tablet DAILY (route: sublingual ) Med Classific ation: Electroly te Balance-N utritiona l Products Multivitami n 50 Plus tablet 2021-02 0-05 00:00: 00 05-02 23:59 :00 No [id number] 1 tablet DAILY 1 tablet DAILY (route: oral) Med Classific ation: Electroly te Balance-N [employer]real [employer] l Products Nitrostat 0.4 mg sublingual tablet 2021-02 0-05 00:00: 00 05-02 23:59 :00 No [id number] 1 tablet NEEDED 1 tablet NEEDED (route: sublingual ) Med Classific ation: Cardiovas cular Therapy Agents thiamine HCl (vitamin B1) 100 mg tablet 2021-02 0-05 00:00: 00 05-02 23:59 :00 No [id number] 1 tablet 2 TIMES DAILY 1 tablet 2 TIMES DAILY (route: oral) Med Classific ation: Electroly te Balance-N utritiona l Products Vitamin C 500 mg tablet 2021-02 0 00:00: 00 05-02 23:59 :00 No [id number] 1 tablet 2 TIMES DAILY 1 tablet 2 TIMES DAILY (route: oral) Med Classific ation: Electroly te Balance-N [employer] l Products Vitamin D3 25 mcg (1,000 unit) tablet 2021-02 0-05 00:00: 00 05-02 23:59 :00 No [id number] 1 tablet DAILY 1 tablet DAILY (route: oral) Med Classific ation: Electroly te Balance-N theRight[employer]a l Products Cymbalta 30 mg capsule,del ayed release 2021-02 0-07 00:00: 00 05-02 23:59 :00 No [id number] 1 capsule BEDTIME 1 capsule BEDTIME (route: oral) Alternate Route: NONE. Med Classific ation: Central Nervous System Agents amoxicillin 875 mg-potassiu m clavulanate 125 mg tablet 05-03 00:00: 00 05-05 23:59 :00 No [id number] 1 tablet 2 TIMES DAILY 1 tablet 2 TIMES DAILY (route: oral) Med Classific ation: Anti-Infe ctive Agents doxycycline monohydrate 100 mg tablet 05-03 00:00: 00 05-05 23:59 :00 No [id number] 1 tablet EVERY 12 HOURS 1 tablet EVERY 12 HOURS (route: oral) Med Classific ation: Anti-Infe ctive Agents potassium chloride ER 20 mEq tablet,exte nded release 3-07 00:00: 00 03-16 23:59 :00 No [id number] 1 tablet DIRECTED 1 tablet DIRECTED (route: oral) Med Classific ation: Electroly te Balance-N utritiona l Products fluoxetine 20 mg capsule 3-04 00:00: 00 05-04 00:00 :00 No [id number] Per instruc tions Per instructio ns (route: oral) Med Classific ation: Central Nervous System Agents oxycodone-a cetaminophe n 7.5 mg-325 mg tablet 3-03 00:00: 00 03-16 23:59 :00 No [id number] Per instruc tions NEEDED Per instructio ns NEEDED (route: oral) Med Classific ation: Analgesic , Anti-infl ammatory or Antipyret ic atorvastati n 80 mg tablet 2-27 00:00: 00 03-16 23:59 :00 No [id number] 1 tablet DAILY 1 tablet DAILY (route: oral) Med Classific ation: Cardiovas cular Therapy Agents gabapentin 300 mg capsule 2-19 00:00: 00 03-16 23:59 :00 No [id number] 2 capsule TWICE A DAY 2 capsule TWICE A DAY (route: oral) Med Classific ation: Central Nervous System Agents allopurinol 300 mg tablet -14 00:00: 00 03-16 23:59 :00 No [id number] 1 tablet DAILY 1 tablet DAILY (route: oral) Med Classific ation: Gout and Hyperuric emia Therapy amlodipine 5 mg tablet 3-14 00:00: 00 03-16 23:59 :00 No [id number] 1 tablet DAILY 1 tablet DAILY (route: oral) Med Classific ation: Cardiovas cular Therapy Agents ascorbic acid (vitamin C) 500 mg tablet 3-14 00:00: 00 03-16 23:59 :00 No [id number] 1 tablet DAILY 1 tablet DAILY (route: oral) Med Classific ation: Electroly te Balance-N utritiona l Products aspirin 81 mg tablet,rochelle yed release 05-04 00:00: 00 03-16 23:59 :00 No [id number] 1 tablet DAILY 1 tablet DAILY (route: oral) Med Classific ation: Hematolog ical Agents carvedilol 12.5 mg tablet 05-04 00:00: 00 03-16 23:59 :00 No [id number] 1 tablet 2 TIMES DAILY 1 tablet 2 TIMES DAILY (route: oral) Med Classific ation: Cardiovas cular Therapy Agents cholecalcif anival (vitamin D3) 25 mcg (1,000 unit) capsule 05-04 00:00: 00 03-16 23:59 :00 No [id number] 1 capsule DAILY 1 capsule DAILY (route: oral) Med Classific ation: Electroly te Balance-N utritiona l Products cyanocobala min (vit B-12) 1,000 mcg tablet 05-04 00:00: 00 03-16 23:59 :00 No [id number] 1 tablet DAILY 1 tablet DAILY (route: oral) Med Classific ation: Electroly te Balance-N utritiona l Products dorzolamide 22.3 mg-timolol 6.8 mg/mL eye drops 05-04 00:00: 00 03-16 23:59 :00 No [id number] 1 drops 2 TIMES DAILY 1 drops 2 TIMES DAILY (route: ophthalmic (eye)) Med Classific ation: Ophthalmi c Agents duloxetine 30 mg capsule,del ayed release 05-04 00:00: 00 03-16 23:59 :00 No [id number] 1 capsule DAILY 1 capsule DAILY (route: oral) Med Classific ation: Central Nervous System Agents Glucosamine Chondroitin 550 mg-30 mg-1 mg capsule 05-04 00:00: 00 03-16 23:59 :00 No [id number] 1 capsule 2 TIMES DAILY 1 capsule 2 TIMES DAILY (route: oral) Med Classific ation: Alternati ve Therapy latanoprost (PF) 0.005 % eye drops 05-04 00:00: 00 03-16 23:59 :00 No [id number] 1 drops BEDTIME 1 drops BEDTIME (route: ophthalmic (eye)) Med Classific ation: Ophthalmi c Agents multivitami n tablet 05-04 00:00: 00 03-16 23:59 :00 No [id number] 1 tablet DAILY 1 tablet DAILY (route: oral) Med Classific ation: Electroly te Balance-N utritiona l Products nitroglycer in 0.4 mg sublingual tablet 05-04 00:00: 00 03-16 23:59 :00 No [id number] 1 tablet DIRECTED 1 tablet DIRECTED (route: sublingual ) Med Classific ation: Cardiovas cular Therapy Agents testosteron e cypionate 200 mg/mL intramuscul ar oil 05-04 00:00: 00 03-16 23:59 :00 No [id number] 0.2 mL WEEKLY 0.2 mL WEEKLY (route: intramuscu lar) Med Classific ation: Endocrine thiamine HCl (vitamin B1) 100 mg tablet 05-04 00:00: 00 03-16 23:59 :00 No [id number] 1 tablet 2 TIMES DAILY 1 tablet 2 TIMES DAILY (route: oral) Med Classific ation: Electroly te Balance-N utritiona l Products atorvastati n 80 mg tablet 2- 00:00: 00 Yes [id number] 1 tablet BEDTIME 1 tablet BEDTIME (route: oral) Med Classific ation: Cardiovas cular Therapy Agents gabapentin 300 mg capsule 2- 00:00: 00 Yes [id number] 3 capsule DAILY 3 capsule DAILY (route: oral) Med Classific ation: Central Nervous System Agents celecoxib 200 mg capsule 2- 00:00: 00 04-27 10:47 :56 No [id number] 1 capsule DAILY 1 capsule DAILY (route: oral) Med Classific ation: Analgesic , Anti-infl ammatory or Antipyret ic docusate sodium 100 mg capsule 2-02 00:00: 00 08-06 23:59 :00 No [id number] 1 capsule TWICE A DAY 1 capsule TWICE A DAY (route: oral) Med Classific ation: Gastroint estinal Therapy Agents pantoprazol e 40 mg tablet,rochelle yed release 03-25 00:00: 00 Yes [id number] 1 tablet EVERY AM 1 tablet EVERY AM (route: oral) Med Classific ation: Gastroint estinal Therapy Agents tramadol 50 mg tablet 03-25 00:00: 00 04-27 10:47 :56 No [id number] 1-2 tablet NEEDED 1-2 tablet NEEDED (route: oral) Med Classific ation: Analgesic , Anti-infl ammatory or Antipyret ic carvedilol 12.5 mg tablet 03-25 00:00: 00 Yes [id number] 1 tablet TWICE A DAY 1 tablet TWICE A DAY (route: oral) Med Classific ation: Cardiovas cular Therapy Agents dorzolamide 22.3 mg-timolol 6.8 mg/mL eye drops 03-25 00:00: 00 Yes [id number] 1 drops TWICE DAILY 1 drops TWICE DAILY (route: ophthalmic (eye)) Med Classific ation: Ophthalmi c Agents acetaminoph en 500 mg tablet 03-25 00:00: 00 04-27 10:47 :56 No [id number] 2 tablet 2 TIMES DAILY 2 tablet 2 TIMES DAILY (route: oral) Med Classific ation: Analgesic , Anti-infl ammatory or Antipyret ic allopurinol 300 mg tablet 03-25 00:00: 00 Yes [id number] 1 tablet EVERY OTHER DAY 1 tablet EVERY OTHER DAY (route: oral) Med Classific ation: Gout and Hyperuric emia Therapy amlodipine 5 mg tablet 03-25 00:00: 00 Yes [id number] 1 tablet DAILY 1 tablet DAILY (route: oral) Med Classific ation: Cardiovas cular Therapy Agents ascorbic acid (vitamin C) 500 mg tablet 03-25 00:00: 00 Yes [id number] 1 tablet DAILY 1 tablet DAILY (route: oral) Med Classific ation: Electroly te Balance-N utritiona l Products aspirin 325 mg tablet 03-25 00:00: 00 08-06 23:59 :00 No [id number] 1 tablet 2 TIMES DAILY 1 tablet 2 TIMES DAILY (route: oral) Med Classific ation: Analgesic , Anti-infl ammatory or Antipyret ic Aveed 750 mg/3 mL (250mg/mL) intramuscul ar solution 03-25 00:00: 00 08-06 23:59 :00 No [id number] .3 mL WEEKLY .3 mL WEEKLY (route: intramuscu lar) Med Classific ation: Endocrine cholecalcif anival (vitamin D3) 25 mcg (1,000 unit) tablet 03-25 00:00: 00 Yes [id number] 1 tablet DAILY 1 tablet DAILY (route: oral) Med Classific ation: Electroly te Balance-N utritiona l Products cyanocobala min (vit B-12) 1,000 mcg tablet 03-25 00:00: 00 04-27 10:47 :56 No [id number] 1 tablet DAILY 1 tablet DAILY (route: oral) Med Classific ation: Electroly te Balance-N utritiona l Products donepezil 5 mg tablet 03-25 00:00: 00 Yes [id number] 1 tablet BEDTIME 1 tablet BEDTIME (route: oral) Med Classific ation: Cognitive Disorder Therapy duloxetine 30 mg capsule,del ayed release 03-25 00:00: 00 Yes [id number] 1 capsule DAILY 1 capsule DAILY (route: oral) Med Classific ation: Central Nervous System Agents furosemide 40 mg tablet 03-25 00:00: 00 Yes [id number] 1 tablet 3 TIMES A WEEK 1 tablet 3 TIMES A WEEK (route: oral) Med Classific ation: Cardiovas cular Therapy Agents GLUCOSAMINE 1500MG/KASANDRA DROITIN 1200MG TABLET 03-25 00:00: 00 Yes [id number] 1 tablet DAILY 1 tablet DAILY (route: BY MOUTH) Med Classific ation: MISCELLAN EOUS HERBS AND SUPPLEMEN TS latanoprost 0.005 % eye drops 03-25 00:00: 00 Yes [id number] 1 drops BEDTIME 1 drops BEDTIME (route: ophthalmic (eye)) Med Classific ation: Ophthalmi c Agents multivitami n tablet 03-25 00:00: 00 Yes [id number] 1 tablet DAILY 1 tablet DAILY (route: oral) Med Classific ation: Electroly te Balance-N utritiona l Products Nitrostat 0.4 mg sublingual tablet 2- 00:00: 00 Yes [id number] 1 tablet NEEDED 1 tablet NEEDED (route: sublingual ) Med Classific ation: Cardiovas cular Therapy Agents oxycodone 5 mg tablet 2- 00:00: 00 04-27 10:47 :56 No [id number] 1-2 tablet NEEDED 1-2 tablet NEEDED (route: oral) Med Classific ation: Analgesic , Anti-infl ammatory or Antipyret ic potassium chloride ER 10 mEq capsule,ext ended release 2- 00:00: 00 Yes [id number] 2 capsule 3 TIMES A WEEK 2 capsule 3 TIMES A WEEK (route: oral) Med Classific ation: Electroly te Balance-N [employer]real [employer] Products Senna Plus 8.6 mg-50 mg tablet 2- 00:00: 00 Yes [id number] 1 tablet 2 TIMES DAILY 1 tablet 2 TIMES DAILY (route: oral) Med Classific ation: Gastroint estinal Therapy Agents tadalafil 5 mg tablet 2-02 00:00: 00 Yes [id number] 1 tablet DAILY 1 tablet DAILY (route: oral) Med Classific ation: Drugs to treat Erectile Dysfuncti on thiamine HCl (vitamin B1) 100 mg tablet 2- 00:00: 00 Yes [id number] 1 tablet 2 TIMES DAILY 1 tablet 2 TIMES DAILY (route: oral) Med Classific ation: Electroly te Balance-N utritiona l Products oxycodone 5 mg tablet 6-15 00:00: 00 08-09 00:00 :00 No [id number] Per instruc tions Per instructio ns (route: oral) Med Classific ation: Analgesic , Anti-infl ammatory or Antipyret ic duloxetine 30 mg capsule,del ayed release 6-14 00:00: 00 08-09 00:00 :00 No [id number] Per instruc tions EVERY DAY Per instructio ns EVERY DAY (route: oral) Med Classific ation: Central Nervous System Agents dorzolamide 22.3 mg-timolol 6.8 mg/mL eye drops 08-01 00:00: 00 12-17 23:59 :00 No [id number] Per instruc tions TWICE DAILY Per instructio ns TWICE DAILY (route: ophthalmic (eye)) Med Classific ation: Ophthalmi c Agents tramadol 50 mg tablet 08-01 00:00: 00 08-09 00:00 :00 No [id number] Per instruc tions EVERY 6 HOURS NEEDED Per instructio ns EVERY 6 HOURS NEEDED (route: oral) Med Classific ation: Analgesic , Anti-infl ammatory or Antipyret ic celecoxib 200 mg capsule 07-28 00:00: 00 08-09 00:00 :00 No [id number] Per instruc tions DIRECTED ONCE DAILY Per instructio ns DIRECTED ONCE DAILY (route: oral) Med Classific ation: Analgesic , Anti-infl ammatory or Antipyret ic gabapentin 300 mg capsule 07-28 00:00: 00 08-09 00:00 :00 No [id number] Per instruc tions TWICE DAILY Per instructio ns TWICE DAILY (route: oral) Med Classific ation: Central Nervous System Agents latanoprost 0.005 % eye drops 07-28 00:00: 00 08-09 00:00 :00 No [id number] Per instruc tions AT BEDTIME Per instructio ns AT BEDTIME (route: ophthalmic (eye)) Med Classific ation: Ophthalmi c Agents potassium chloride ER 20 mEq tablet,exte nded release 30 00:00: 00 08-09 00:00 :00 No [id number] Per instruc tions EVERY Per instructio ns EVERY (route: oral) Med Classific ation: Electroly te Balance-N utritiona l Products latanoprost 0.005 % eye drops 07-18 00:00: 00 08-09 00:00 :00 No [id number] Per instruc tions EVERY NIGHT AT BEDTIME Per instructio ns EVERY NIGHT AT BEDTIME (route: ophthalmic (eye)) Med Classific ation: Ophthalmi c Agents amlodipine 5 mg tablet 07-17 00:00: 00 08-09 00:00 :00 No [id number] Per instruc tions EVERY DAY Per instructio ns EVERY DAY (route: oral) Med Classific ation: Cardiovas cular Therapy Agents acetaminoph en 500 mg tablet 08-08 00:00: 00 12-17 23:59 :00 No [id number] 2 tablet NEEDED 2 tablet NEEDED (route: oral) Med Classific ation: Analgesic , Anti-infl ammatory or Antipyret ic Eliquis 2.5 mg tablet 08-08 00:00: 00 12-17 23:59 :00 No [id number] 1 tablet 2 TIMES DAILY 1 tablet 2 TIMES DAILY (route: oral) Med Classific ation: Hematolog ical Agents testosteron e cypionate 200 mg/mL intramuscul ar oil 07-23 00:00: 00 Yes [id number] .03 mL WEEKLY .03 mL WEEKLY (route: intramuscu lar) Med Classific ation: Endocrine acetaminoph en 500 mg tablet 2024-02 00:00: 00 Yes [id number] 1 tablet EVERY 6 HOURS 1 tablet EVERY 6 HOURS (route: oral) Med Classific ation: Analgesic , Anti-infl ammatory or Antipyret ic aspirin 81 mg tablet 2024-02 00:00: 00 Yes [id number] 1 tablet DAILY 1 tablet DAILY (route: oral) Med Classific ation: Hematolog ical Agents brimonidine 0.2 % eye drops 2024-02 00:00: 00 Yes [id number] 1 drops 2 TIMES DAILY 1 drops 2 TIMES DAILY (route: ophthalmic (eye)) Med Classific ation: Ophthalmi c Agents calcium 250 mg (as citrate) tablet 2024-02 00:00: 00 Yes [id number] 2 tablet 2 TIMES DAILY 2 tablet 2 TIMES DAILY (route: oral) Med Classific ation: Electroly te Balance-N utritiona l Products ferrous sulfate 325 mg (65 mg iron) tablet 2024-02 00:00: 00 Yes [id number] 1 tablet DAILY 1 tablet DAILY (route: oral) Med Classific ation: Electroly te Balance-N utritiona l Products folic acid 1 mg tablet 2024-02 00:00: 00 Yes [id number] 1 tablet DAILY 1 tablet DAILY (route: oral) Med Classific ation: Electroly te Balance-N utritiona l Products gabapentin 300 mg capsule 2024-02 00:00: 00 Yes [id number] 4 capsule BEDTIME 4 capsule BEDTIME (route: oral) Med Classific ation: Central Nervous System Agents methotrexat e 2.5 mg tablet 2024-02 00:00: 00 Yes [id number] 7.5 mg WEEKLY 7.5 mg WEEKLY (route: oral) Med Classific ation: Antineopl astics polyethylen e glycol 3350 17 gram/dose oral powder 2024-02 00:00: 00 Yes [id number] 17 gram DAILY 17 gram DAILY (route: oral) Med Classific ation: Gastroint estinal Therapy Agents Vital Signs Vital Name Observation Time Observation Value Commen ts Temperature 2024-12-21 10:52:00.000 97.6 [degF] Temperature 2024-12-19 11:22:00.000 97.6 [degF] Temperature 2024-12-19 08:57:00.000 96.9 [degF] Temperature 2024-12-17 11:29:00.000 97.6 [degF] Temperature 2024-12-17 08:51:00.000 97.2 [degF] Temperature 2024-12-15 11:45:00.000 97.6 [degF] Temperature 2024-12-13 10:03:00.000 97.1 [degF] Temperature 2024-12-11 11:38:00.000 98.5 [degF] Temperature 2024-12-08 14:50:00.000 96.9 [degF] BMI (%) 2024-12-08 14:50:00.000 24 kg/m2 Height 2024-12-08 14:50:00.000 73 [in_us] Pulse 2024-12-21 10:52:00.000 71 /min Pulse 2024-12-19 11:22:00.000 71 /min Pulse 2024-12-19 08:57:00.000 78 /min Pulse 2024-12-17 11:29:00.000 75 /min Pulse 2024-12-17 08:51:00.000 81 /min Pulse 2024-12-15 11:45:00.000 75 /min Pulse 2024-12-13 10:03:00.000 73 /min Pulse 2024-12-11 11:38:00.000 70 /min Pulse 2024-12-08 14:50:00.000 81 /min O2 Saturation (%) 2024-12-21 10:52:00.000 97 % O2 Saturation (%) 2024-12-19 11:22:00.000 97 % O2 Saturation (%) 2024-12-19 08:57:00.000 97 % O2 Saturation (%) 2024-12-17 11:29:00.000 97 % O2 Saturation (%) 2024-12-17 08:51:00.000 97 % O2 Saturation (%) 2024-12-15 11:45:00.000 97 % O2 Saturation (%) 2024-12-13 10:03:00.000 97 % O2 Saturation (%) 2024-12-11 11:38:00.000 97 % O2 Saturation (%) 2024-12-08 14:50:00.000 97 % Respirations 2024-12-21 10:52:00.000 18 /min Respirations 2024-12-19 11:22:00.000 18 /min Respirations 2024-12-19 08:57:00.000 10 /min Respirations 2024-12-17 11:29:00.000 18 /min Respirations 2024-12-17 08:51:00.000 17 /min Respirations 2024-12-15 11:45:00.000 18 /min Respirations 2024-12-13 10:03:00.000 17 /min Respirations 2024-12-11 11:38:00.000 18 /min Respirations 2024-12-08 14:50:00.000 18 /min Weight (lbs) 2024-12-08 14:50:00.000 186 [lb_av] Systolic Blood Pressure 2024-12-21 10:52:00.000 132 mm [Hg] Systolic Blood Pressure 2024-12-19 11:22:00.000 122 mm [Hg] Systolic Blood Pressure 2024-12-19 08:57:00.000 110 mm [Hg] Systolic Blood Pressure 2024-12-17 11:29:00.000 148 mm [Hg] Systolic Blood Pressure 2024-12-17 08:51:00.000 168 mm [Hg] Systolic Blood Pressure 2024-12-15 11:45:00.000 122 mm [Hg] Systolic Blood Pressure 2024-12-13 10:03:00.000 132 mm [Hg] Systolic Blood Pressure 2024-12-11 11:38:00.000 122 mm [Hg] Systolic Blood Pressure 2024-12-08 14:50:00.000 142 mm [Hg] Diastolic Blood Pressure 2024-12-21 10:52:00.000 68 mm [Hg] Diastolic Blood Pressure 2024-12-19 11:22:00.000 70 mm [Hg] Diastolic Blood Pressure 2024-12-19 08:57:00.000 60 mm [Hg] Diastolic Blood Pressure 2024-12-17 11:29:00.000 70 mm [Hg] Diastolic Blood Pressure 2024-12-17 08:51:00.000 72 mm [Hg] Diastolic Blood Pressure 2024-12-15 11:45:00.000 68 mm [Hg] Diastolic Blood Pressure 2024-12-13 10:03:00.000 72 mm [Hg] Diastolic Blood Pressure 2024-12-11 11:38:00.000 80 mm [Hg] Diastolic Blood Pressure 2024-12-08 14:50:00.000 74 mm [Hg] Plan of Treatment Planned Activity Planned Date Details Comments Future Scheduled Test SKILLED NU RSE TO EVALUATE PATIENT, IDENTIFY PRIMARY AND CO-MORBID CONDITIONS CODED PER CODING GUIDELINES, AND DEVELOP PATIENT SPECIFIC PLAN OF CARE THAT INCLUDES PATIENT GOAL FOR HOME HEALTH. [code = SKILLED NURSE TO EVALUATE PATIENT, IDENTIFY PRIMARY AND CO-MORBID CONDITIONS CODED PER CODING GUIDELINES, AND DEVELOP PATIENT SPECIFIC PLAN OF CARE THAT INCLUDES PATIENT GOAL FOR HOME HEALTH.] Future Scheduled Test SKILLED NU RSE TO ASSESS ANXIETY AND PROVIDE ASSISTANCE TO PATIENT FOR UNDERSTANDING AND MANAGEMENT OF FEELINGS. [code = SKILLED NURSE TO ASSESS ANXIETY AND PROVIDE ASSISTANCE TO PATIENT FOR UNDERSTANDING AND MANAGEMENT OF FEELINGS.] Future Scheduled Test SKILLED NU RSE FOR O/A, TEACHING, AND MANAGEMENT OF ASHD [code = SKILLED NURSE FOR O/A, TEACHING, AND MANAGEMENT OF ASHD] Future Scheduled Test SKILLED NU RSE FOR O/A, TEACHING RELATED TO VIRAL INTESTINAL INFECTION FOR EARLY IDENTIFICATION OF EXACERBATION OF DISEASE PROCESS. [code = SKILLED NURSE FOR O/A, TEACHING RELATED TO VIRAL INTESTINAL INFECTION FOR EARLY IDENTIFICATION OF EXACERBATION OF DISEASE PROCESS.] Future Scheduled Test SKILLED NU RSE FOR O/A, TEACHING AND MANAGEMENT OF CHRONIC KIDNEY DISEASE, STAGE 3A FOR EARLY IDENTIFICATION OF EXACERBATION OF DISEASE PROCESS [code = SKILLED NURSE FOR O/A, TEACHING AND MANAGEMENT OF CHRONIC KIDNEY DISEASE, STAGE 3A FOR EARLY IDENTIFICATION OF EXACERBATION OF DISEASE PROCESS] Future Scheduled Test SKILLED NU RSE FOR O/A OF RESPIRATORY SYSTEM TO IDENTIFY CHANGES ASSOCIATED WITH EXACERBATION AND TO PROVIDE SKILLED TEACHING ON MANAGEMENT OF OBSTRUCTIVE SLEEP APNEA RESPIRATORY DISEASE PROCESS. [code = SKILLED NURSE FOR O/A OF RESPIRATORY SYSTEM TO IDENTIFY CHANGES ASSOCIATED WITH EXACERBATION AND TO PROVIDE SKILLED TEACHING ON MANAGEMENT OF OBSTRUCTIVE SLEEP APNEA RESPIRATORY DISEASE PROCESS.] Future Scheduled Test SKILLED NU RSE FOR O/A AND SKILLED TEACHING RELATED TO SIGNS AND SYMPTOMS OF INFECTION AND INFECTION CONTROL MEASURES. [code = SKILLED NURSE FOR O/A AND SKILLED TEACHING RELATED TO SIGNS AND SYMPTOMS OF INFECTION AND INFECTION CONTROL MEASURES.] Future Scheduled Test NEED FOR S KILLED TEACHING AND INTERVENTION RELATED TO STAGE III PRESSURE WOUND TO MID LOWER BACK. SKILLED NURSE OR TRAINED PATIENT/CAREGIVER TO PERFORM WOUND CARE USING CLEAN TECHNIQUE, CLEANSE/IRRIGATE WITH NORMAL SALINE, PAT DRY. APPLY TRIAD PASTE TO PERIWOUND, APPLIED NICOLE TO WOUND BED FOLLOWED BY ADAPTIC AND CALCIUM ALGINATE WITH SILVER, COVER WITH BORDERED OPTIFOAM DRESSING. WOUND CARE TO BE PERFORMED 3X WEEK AND PRN IF SOILED OR DISLODGED. 1-2 PRN SKILLED NURSE VISITS FOR WOUND CARE DUE TO COMPLICATIONS. SKILLED NURSE TO OBTAIN WOUND CULTURE PRN S/S OF INFECTION. WOUND CARE WILL BE PERFORMED BY TRAINED CAREGIVER ON DAYS WHEN SKILLED NURSE IS NOT SCHEDULED FOR A VISIT. DISCONTINUE WOUND CARE/SUPPLIES ONCE WOUND IS HEALED. [code = NEED FOR SKILLED TEACHING AND INTERVENTION RELATED TO STAGE III PRESSURE WOUND TO MID LOWER BACK. SKILLED NURSE OR TRAINED PATIENT/CAREGIVER TO PERFORM WOUND CARE USING CLEAN TECHNIQUE, CLEANSE/IRRIGATE WITH NORMAL SALINE, PAT DRY. APPLY TRIAD PASTE TO PERIWOUND, APPLIED NICOLE TO WOUND BED FOLLOWED BY ADAPTIC AND CALCIUM ALGINATE WITH SILVER, COVER WITH BORDERED OPTIFOAM DRESSING. WOUND CARE TO BE PERFORMED 3X WEEK AND PRN IF SOILED OR DISLODGED. 1-2 PRN SKILLED NURSE VISITS FOR WOUND CARE DUE TO COMPLICATIONS. SKILLED NURSE TO OBTAIN WOUND CULTURE PRN S/S OF INFECTION. WOUND CARE WILL BE PERFORMED BY TRAINED CAREGIVER ON DAYS WHEN SKILLED NURSE IS NOT SCHEDULED FOR A VISIT. DISCONTINUE WOUND CARE/SUPPLIES ONCE WOUND IS HEALED.] Future Scheduled Test SKILLED NU RSE FOR O/A OF SELF-CARE DEFICITS AND TO PROVIDE TEACHING RELATED TO SAFE PROVISION OF ADLS. [code = SKILLED NURSE FOR O/A OF SELF-CARE DEFICITS AND TO PROVIDE TEACHING RELATED TO SAFE PROVISION OF ADLS.] Future Scheduled Test SKILLED NU RSE FOR O/A AND TEACHING OF ENDOCRINE SYSTEM TO IDENTIFY CHANGES ASSOCIATED WITH EXACERBATION OF GOUT FOR EARLY INTERVENTION OF COMPLICATIONS. [code = SKILLED NURSE FOR O/A AND TEACHING OF ENDOCRINE SYSTEM TO IDENTIFY CHANGES ASSOCIATED WITH EXACERBATION OF GOUT FOR EARLY INTERVENTION OF COMPLICATIONS.] Future Scheduled Test SKILLED NU RSE TO ASSESS HOME SAFETY FOR PATIENT WITH IMPAIRED VISION AND INSTRUCT PATIENT/CAREGIVER ON SAFETY TECHNIQUES FOR ADLS AND IADLS, MEDICATION MANAGEMENT, AND HOME ADAPTATION. [code = SKILLED NURSE TO ASSESS HOME SAFETY FOR PATIENT WITH IMPAIRED VISION AND INSTRUCT PATIENT/CAREGIVER ON SAFETY TECHNIQUES FOR ADLS AND IADLS, MEDICATION MANAGEMENT, AND HOME ADAPTATION.] Future Scheduled Test PHYSICAL T HERAPIST TO EVALUATE PATIENT SECONDARY TO FUNCTIONAL DEFICITS/SAFETY CONCERNS IDENTIFIED DURING EVALUATION. [code = PHYSICAL THERAPIST TO EVALUATE PATIENT SECONDARY TO FUNCTIONAL DEFICITS/SAFETY CONCERNS IDENTIFIED DURING EVALUATION.] Future Scheduled Test SKILLED NU RSE TO PROVIDE TEACHING ON SIGNS AND SYMPTOMS AND MANAGEMENT OF HYPERTENSION. [code = SKILLED NURSE TO PROVIDE TEACHING ON SIGNS AND SYMPTOMS AND MANAGEMENT OF HYPERTENSION.] Future Scheduled Test SKILLED NU RSE FOR OBSERVATION AND ASSESSMENT TO IDENTIFY CHANGES ASSOCIATED WITH DEMENTIA AND TEACHING RELATED TO SAFETY MEASURES TO PREVENT INJURY, ELOPEMENT RISKS, BEHAVIOR CHANGES, ACTIVITIES, AND ENVIRONMENTAL CHANGES ALL SECONDARY TO IMPAIRED COGNITIVE STATUS. [code = SKILLED NURSE FOR OBSERVATION AND ASSESSMENT TO IDENTIFY CHANGES ASSOCIATED WITH DEMENTIA AND TEACHING RELATED TO SAFETY MEASURES TO PREVENT INJURY, ELOPEMENT RISKS, BEHAVIOR CHANGES, ACTIVITIES, AND ENVIRONMENTAL CHANGES ALL SECONDARY TO IMPAIRED COGNITIVE STATUS.] Future Scheduled Test SKILLED NU RSE FOR O/A AND SKILLED TEACHING RELATED TO SIGNS AND SYMPTOMS AND MANAGEMENT OF FRACTURE OF T11-T12 VERTEBRA [code = SKILLED NURSE FOR O/A AND SKILLED TEACHING RELATED TO SIGNS AND SYMPTOMS AND MANAGEMENT OF FRACTURE OF T11-T12 VERTEBRA] Future Scheduled Test PATIENT TORREZ S A RISK OF HOSPITALIZATION AND ED USE. SKILLED NURSE TO ESTABLISH SUPPORT MEASURES TO MINIMIZE RISK OF HOSPITALIZATION AND ED USE, AND INSTRUCT PATIENT/CAREGIVER ON METHODS TO REDUCE AVOIDABLE HOSPITALIZATION AND ED USE. [code = PATIENT HAS A RISK OF HOSPITALIZATION AND ED USE. SKILLED NURSE TO ESTABLISH SUPPORT MEASURES TO MINIMIZE RISK OF HOSPITALIZATION AND ED USE, AND INSTRUCT PATIENT/CAREGIVER ON METHODS TO REDUCE AVOIDABLE HOSPITALIZATION AND ED USE.] Future Scheduled Test SKILLED NU RSE TO PROVIDE INSTRUCTION TO PATIENT/CAREGIVER RELATED TO DISCHARGE PLANNING. [code = SKILLED NURSE TO PROVIDE INSTRUCTION TO PATIENT/CAREGIVER RELATED TO DISCHARGE PLANNING.] Future Scheduled Test SKILLED NU RSE TO PERFORM ENVIRONMENTAL SAFETY RISK ASSESSMENT AND FALL RISK ASSESSMENT AND PROVIDE INSTRUCTION TO IMPLEMENT ENVIRONMENTAL SAFETY AND FALL PREVENTION STRATEGIES THROUGHOUT THE CERTIFICATION PERIOD. SKILLED NURSE WILL MAINTAIN SITUATIONAL AWARENESS AND WILL NOTIFY CLINICAL ANALYST BUSINESS ANALYSIS AND PHYSICIAN/PROVIDER WITH ANY CHANGE IN CONDITION. [code = SKILLED NURSE TO PERFORM ENVIRONMENTAL SAFETY RISK ASSESSMENT AND FALL RISK ASSESSMENT AND PROVIDE INSTRUCTION TO IMPLEMENT ENVIRONMENTAL SAFETY AND FALL PREVENTION STRATEGIES THROUGHOUT THE CERTIFICATION PERIOD. SKILLED NURSE WILL MAINTAIN SITUATIONAL AWARENESS AND WILL NOTIFY CLINICAL ANALYST BUSINESS ANALYSIS AND PHYSICIAN/PROVIDER WITH ANY CHANGE IN CONDITION.] Future Scheduled Test SKILLED NU RSE FOR OBSERVATION AND ASSESSMENT OF PATIENT S PAIN LEVEL AND EFFECTIVENESS OF PAIN MANAGEMENT REGIMEN. SKILLED NURSE TO INSTRUCT PATIENT/CAREGIVER REGARDING PHARMACOLOGIC AND NON-PHARMACOLOGIC PAIN CONTROL MEASURES. SKILLED NURSE TO REPORT TO PHYSICIAN IF PAIN LEVEL IS OUTSIDE OF ESTABLISHED PARAMETERS. [code = SKILLED NURSE FOR OBSERVATION AND ASSESSMENT OF PATIENT S PAIN LEVEL AND EFFECTIVENESS OF PAIN MANAGEMENT REGIMEN. SKILLED NURSE TO INSTRUCT PATIENT/CAREGIVER REGARDING PHARMACOLOGIC AND NON-PHARMACOLOGIC PAIN CONTROL MEASURES. SKILLED NURSE TO REPORT TO PHYSICIAN IF PAIN LEVEL IS OUTSIDE OF ESTABLISHED PARAMETERS.] Future Scheduled Test SKILLED NU RSE TO ASSESS PATIENT'S SKIN INTEGRITY AND INSTRUCT PATIENT/CAREGIVER ON MEASURES TO PREVENT PRESSURE ULCERS. [code = SKILLED NURSE TO ASSESS PATIENT'S SKIN INTEGRITY AND INSTRUCT PATIENT/CAREGIVER ON MEASURES TO PREVENT PRESSURE ULCERS.] Future Scheduled Test SKILLED NU RSE TO PROVIDE ASSESSMENT AND TEACHING/REINFORCEMENT OF MANAGEMENT OF DEPRESSION INCLUDING DISEASE PROCESS, MEDICATION MANAGEMENT, COPING SKILLS AND IDENTIFY CHANGES ASSOCIATED WITH DEPRESSIVE DISORDERS FOR EARLY INTERVENTION. [code = SKILLED NURSE TO PROVIDE ASSESSMENT AND TEACHING/REINFORCEMENT OF MANAGEMENT OF DEPRESSION INCLUDING DISEASE PROCESS, MEDICATION MANAGEMENT, COPING SKILLS AND IDENTIFY CHANGES ASSOCIATED WITH DEPRESSIVE DISORDERS FOR EARLY INTERVENTION.] Future Scheduled Test SN TO INST RUCT PATIENT/CAREGIVER ON METHODS TO MANAGE WOUNDS AND MAINTAIN HEALTHY SKIN UTILIZING THE CLEAR SPECIALTY PROGRAM. [code = SN TO INSTRUCT PATIENT/CAREGIVER ON METHODS TO MANAGE WOUNDS AND MAINTAIN HEALTHY SKIN UTILIZING THE CLEAR SPECIALTY PROGRAM.] Future Scheduled Test CLINICAL S UMMARY SOC SUMMARY THE PATIENT IS RECEIVING HOMECARE DUE TO NEW ONSET/EXACERBATION OF: STAGE III PRESSURE WOUND TO BACK RECENT HOSPITALIZATION/INPATIENT ADMISSION RELATED TO: NO RECENT ER VISITS OR HOSPITALIZATIONS NEW OR CHANGED MEDICATIONS PERTINENT TO THE PLAN OF CARE: NO RECENT MEDICATION CHANGES PATIENT LIVING SITUATION/CAREGIVER STATUS: PATIENT LIVES WITH HIS IN A PRIVATE ONE LEVEL HOME WITH A COUPLE STAIRS TO NAVIGATE TO GET INTO THE HOME. PATIENT'S IS CURRENTLY PROVIDING SUPPORT WITH ADLS, IADLS, MEDICATION MANAGEMENT, AND MEDICAL CARE COORDINATION. RECENT FALLS: PATIENT FELL A MONTH AGO SKILLED TEACHING AND TRAINING, OBSERVATION AND ASSESSMENT, AND/OR TREATMENTS THAT REQUIRE SKILLED CARE:ASSESSMENT OF CARDIOPULMONARY STATUS, MUSCULOSKELETAL STATUS, /GI STATUS, ENDOCRINE AND NEUROLOGICAL STATUS, SKIN INTEGRITY, PAIN MANAGEMENT, MONITOR FOR S/S OF INFECTION AND DVT, EDUCATE PATIENT/CAREGIVER ON DISEASE MANAGMENT, INFECTION CONTROL MEASURES, SKIN INTEGRITY MEASURES, PRESSURE RELIEF MEASURES, MEDICATION USES, SIDE EFFECTS, AND PRECAUTIONS, SAFETY MEASURES TO REDUCE THE RISK OF FALLS OR INJURY, AND S/S TO REPORT TO MD REBECCA OR SEEK EMERGENT CARE. ADDITIONAL DISCIPLINES NEEDED OR DECLINED ORDERED SERVICES: PT EVALUATION FOR STRENGTHENING AND SAFETY [code = CLINICAL SUMMARY SOC SUMMARY THE PATIENT IS RECEIVING HOMECARE DUE TO NEW ONSET/EXACERBATION OF: STAGE III PRESSURE WOUND TO BACK RECENT HOSPITALIZATION/INPATIENT ADMISSION RELATED TO: NO RECENT ER VISITS OR HOSPITALIZATIONS NEW OR CHANGED MEDICATIONS PERTINENT TO THE PLAN OF CARE: NO RECENT MEDICATION CHANGES PATIENT LIVING SITUATION/CAREGIVER STATUS: PATIENT LIVES WITH HIS IN A PRIVATE ONE LEVEL HOME WITH A COUPLE STAIRS TO NAVIGATE TO GET INTO THE HOME. PATIENT'S IS CURRENTLY PROVIDING SUPPORT WITH ADLS, IADLS, MEDICATION MANAGEMENT, AND MEDICAL CARE COORDINATION. RECENT FALLS: PATIENT FELL A MONTH AGO SKILLED TEACHING AND TRAINING, OBSERVATION AND ASSESSMENT, AND/OR TREATMENTS THAT REQUIRE SKILLED CARE:ASSESSMENT OF CARDIOPULMONARY STATUS, MUSCULOSKELETAL STATUS, /GI STATUS, ENDOCRINE AND NEUROLOGICAL STATUS, SKIN INTEGRITY, PAIN MANAGEMENT, MONITOR FOR S/S OF INFECTION AND DVT, EDUCATE PATIENT/CAREGIVER ON DISEASE MANAGMENT, INFECTION CONTROL MEASURES, SKIN INTEGRITY MEASURES, PRESSURE RELIEF MEASURES, MEDICATION USES, SIDE EFFECTS, AND PRECAUTIONS, SAFETY MEASURES TO REDUCE THE RISK OF FALLS OR INJURY, AND S/S TO REPORT TO MD REBECCA OR SEEK EMERGENT CARE. ADDITIONAL DISCIPLINES NEEDED OR DECLINED ORDERED SERVICES: PT EVALUATION FOR STRENGTHENING AND SAFETY] Future Scheduled Test SKILLED NU RSE TO REVIEW PATIENT MEDICATIONS (PRESCRIPTION/OTC). INSTRUCT PATIENT/CAREGIVER ON ALL MEDICATIONS INCLUDING PURPOSE, WHEN TO TAKE, IMPORTANCE OF MEDICATION ADHERENCE, MONITORING OF EFFECTIVENESS, ADVERSE DRUG REACTIONS, POSSIBLE SIDE EFFECTS, AND WHEN TO NOTIFY AGENCY OR PHYSICIAN/PROVIDER OF ANY CONCERNS. [code = SKILLED NURSE TO REVIEW PATIENT MEDICATIONS (PRESCRIPTION/OTC). INSTRUCT PATIENT/CAREGIVER ON ALL MEDICATIONS INCLUDING PURPOSE, WHEN TO TAKE, IMPORTANCE OF MEDICATION ADHERENCE, MONITORING OF EFFECTIVENESS, ADVERSE DRUG REACTIONS, POSSIBLE SIDE EFFECTS, AND WHEN TO NOTIFY AGENCY OR PHYSICIAN/PROVIDER OF ANY CONCERNS.] Future Scheduled Test PHYSICAL T HERAPIST TO EVALUATE PATIENT SECONDARY TO FUNCTIONAL DEFICITS/SAFETY CONCERNS. PHYSICAL THERAPY TO ESTABLISH /UPGRADE/DOWNGRADE THERAPEUTIC EXERCISE PROGRAM AND INSTRUCT PATIENT/CAREGIVER ON EXERCISE PRECAUTIONS WITH WRITTEN HOME PROGRAM. MAY INCLUDE PROM, AAROM, AROM, RROM APPROPRIATE TO IMPROVE FUNCTIONAL STRENGTH AND RANGE OF MOTION. PHYSICAL THERAPY TO INSTRUCT PATIENT/CAREGIVER ON BED MOBILITY TECHNIQUES TO IMPROVE PATIENT MOBILITY AND POSITIONING TECHNIQUES IN ORDER TO INCREASE PATIENT S COMFORT AND DECREASE RISK OF SKIN BREAKDOWN. PHYSICAL THERAPY TO INSTRUCT PATIENT/CAREGIVER ON SAFE TRANSFER TECHNIQUES USING PROPER BODY MECHANICS AND EQUIPMENT. PHYSICAL THERAPY TO INSTRUCT PATIENT/CAREGIVER ON GAIT TRAINING TECHNIQUES USING APPROPRIATE ASSISTIVE DEVICE, PROPER BODY MECHANICS TO IMPROVE MOBILITY, AND PREVENT INJURY OF PATIENT AND/OR CAREGIVER. PHYSICAL THERAPY TO ASSESS AND RECOMMEND HOME SAFETY ADAPTATIONS AND EDUCATE PATIENT /CAREGIVER ON FALL PREVENTION STRATEGIES. PHYSICAL THERAPY TO INSTRUCT PATIENT/CAREGIVER ON BALANCE AND BALANCE STRATEGIES TO IMPROVE SAFE MOBILITY AND REDUCE RISK FOR FALL AND INJURY SUMMARY OF THERAPY EVAL/ASSESSMENT FINDINGS AND REASON(S) SKILLS OF A THERAPIST ARE INDICATED: PATIENT WAS SEEN FOR INITIAL PHYSICAL THERAPY VISIT AND HOME SAFETY ASSESSMENT. PATIENT IS A 74-YEAR-OLD MALE WHO WENT TO HOSPITAL TWICE TO [place] FOR GI AND GASTRO AND FELL ONCE. WAS LIVING IN ASSISTED LIVING TEMPORARILY BROKE HER L ARM AND THEY BOTH NEEDED ASSIST. BOTH RETURNING HOME AT THIS TIME, AND PT CONTINUES TO REQUIRE HOME CARE SERVICES. PMH SIGNIFICANT FOR: ANGINA, AND THE CATARACTS, DEPRESSIVE DISORDER, HYPERTENSION, GLAUCOMA, GOUT, AND AL. B THR, OA R KNEE. AWAITING TKR. WEARING BRACE PLOF PATIENT LIVES WITH HIS IN A SINGLE FAMILY HOME WITH 3 STEPS TO GET IN. PATIENT WAS DRIVING, INDEPENDENT IN HIS MOBILITY AND ADLS. USED CANE FOR OUTSIDE MOBILITY BUT NO DEVICE IN HOME. PRESENTLY, PT AMB WITH ROLLATOR BUT WILL ALSO FURNITURE WALK IN HOME AND IS UNSTEADY AND AT RISK FOR FALLING. ASSESSED HT FOR USE AND IDENTIFIED THAT ROLLATOR IS TOO SHORT. ATTEMPTED TO FIND A NEW ROLLATOR AT [facility] BUT NONE WAS AVAILABLE AND WILL CONTINUE TO LOOK. PATIENT UNABLE TO MANAGE STAIRS WITHOUT ASSIST IS UNSTEADY. TRANSFERS REQUIRE UPPER EXTREMITY SUPPORT AND MULTIPLE ATTEMPTS AT THIS TIME. PATIENT IS UNSTEADY. PRESENTLY PATIENT IS SLEEPING IN RECLINER CHAIR. TUG SCORE AND 30 SECOND [id number] INDICATE THAT PATIENT IS A FALL RISK. INITIATED SEATED EXERCISES WITH PATIENT BEING COGNIZANT NOT TO SIT BACK DUE TO OPEN AREA ON HIS SPINE. WAS ABLE TO CONVINCE PATIENT TO TRIAL LAYING IN BED SIDE-LYING WITH BED RAIL. PATIENT REQUIRES ASSIST SIT TO SUPINE FOR LOWER EXTREMITIES BUT IS ABLE TO GET UP FROM SUPINE TO SIT. PATIENT SURPRISINGLY WAS NOT UNCOMFORTABLE AND HAS AGREED TO TRIAL SLEEPING AND GETTING INTO BED TO 3 TIMES A DAY TO TAKE PRESSURE OFF OF HIS WOUND. WRITTEN PROGRAM PROVIDED FOR SEATED EXERCISES. TO BE COMPLETED 3 TIMES A DAY. PATIENT INSTRUCTED TO USE WALKER AT ALL TIMES AND TO AMBULATE HOURLY TOLERATED. PATIENT IS APPROPRIATE CANDIDATE FOR SKILLED PHYSICAL THERAPY TO ADDRESS PHYSICAL IMPAIRMENTS AND FUNCTIONAL LIMITATIONS. PATIENT VERBALIZED AGREEMENT WITH PLAN OF CARE. MD NOTIFIED. [code = PHYSICAL THERAPIST TO EVALUATE PATIENT SECONDARY TO FUNCTIONAL DEFICITS/SAFETY CONCERNS. PHYSICAL THERAPY TO ESTABLISH /UPGRADE/DOWNGRADE THERAPEUTIC EXERCISE PROGRAM AND INSTRUCT PATIENT/CAREGIVER ON EXERCISE PRECAUTIONS WITH WRITTEN HOME PROGRAM. MAY INCLUDE PROM, AAROM, AROM, RROM APPROPRIATE TO IMPROVE FUNCTIONAL STRENGTH AND RANGE OF MOTION. PHYSICAL THERAPY TO INSTRUCT PATIENT/CAREGIVER ON BED MOBILITY TECHNIQUES TO IMPROVE PATIENT MOBILITY AND POSITIONING TECHNIQUES IN ORDER TO INCREASE PATIENT S COMFORT AND DECREASE RISK OF SKIN BREAKDOWN. PHYSICAL THERAPY TO INSTRUCT PATIENT/CAREGIVER ON SAFE TRANSFER TECHNIQUES USING PROPER BODY MECHANICS AND EQUIPMENT. PHYSICAL THERAPY TO INSTRUCT PATIENT/CAREGIVER ON GAIT TRAINING TECHNIQUES USING APPROPRIATE ASSISTIVE DEVICE, PROPER BODY MECHANICS TO IMPROVE MOBILITY, AND PREVENT INJURY OF PATIENT AND/OR CAREGIVER. PHYSICAL THERAPY TO ASSESS AND RECOMMEND HOME SAFETY ADAPTATIONS AND EDUCATE PATIENT /CAREGIVER ON FALL PREVENTION STRATEGIES. PHYSICAL THERAPY TO INSTRUCT PATIENT/CAREGIVER ON BALANCE AND BALANCE STRATEGIES TO IMPROVE SAFE MOBILITY AND REDUCE RISK FOR FALL AND INJURY SUMMARY OF THERAPY EVAL/ASSESSMENT FINDINGS AND REASON(S) SKILLS OF A THERAPIST ARE INDICATED: PATIENT WAS SEEN FOR INITIAL PHYSICAL THERAPY VISIT AND HOME SAFETY ASSESSMENT. PATIENT IS A 74-YEAR-OLD MALE WHO WENT TO HOSPITAL TWICE TO [place] FOR GI AND GASTRO AND FELL ONCE. WAS LIVING IN ASSISTED LIVING TEMPORARILY BROKE HER L ARM AND THEY BOTH NEEDED ASSIST. BOTH RETURNING HOME AT THIS TIME, AND PT CONTINUES TO REQUIRE HOME CARE SERVICES. PMH SIGNIFICANT FOR: ANGINA, AND THE CATARACTS, DEPRESSIVE DISORDER, HYPERTENSION, GLAUCOMA, GOUT, AND AL. B THR, OA R KNEE. AWAITING TKR. WEARING BRACE PLOF PATIENT LIVES WITH HIS IN A SINGLE FAMILY HOME WITH 3 STEPS TO GET IN. PATIENT WAS DRIVING, INDEPENDENT IN HIS MOBILITY AND ADLS. USED CANE FOR OUTSIDE MOBILITY BUT NO DEVICE IN HOME. PRESENTLY, PT AMB WITH ROLLATOR BUT WILL ALSO FURNITURE WALK IN HOME AND IS UNSTEADY AND AT RISK FOR FALLING. ASSESSED HT FOR USE AND IDENTIFIED THAT ROLLATOR IS TOO SHORT. ATTEMPTED TO FIND A NEW ROLLATOR AT [facility] BUT NONE WAS AVAILABLE AND WILL CONTINUE TO LOOK. PATIENT UNABLE TO MANAGE STAIRS WITHOUT ASSIST IS UNSTEADY. TRANSFERS REQUIRE UPPER EXTREMITY SUPPORT AND MULTIPLE ATTEMPTS AT THIS TIME. PATIENT IS UNSTEADY. PRESENTLY PATIENT IS SLEEPING IN RECLINER CHAIR. TUG SCORE AND 30 SECOND [id number] INDICATE THAT PATIENT IS A FALL RISK. INITIATED SEATED EXERCISES WITH PATIENT BEING COGNIZANT NOT TO SIT BACK DUE TO OPEN AREA ON HIS SPINE. WAS ABLE TO CONVINCE PATIENT TO TRIAL LAYING IN BED SIDE-LYING WITH BED RAIL. PATIENT REQUIRES ASSIST SIT TO SUPINE FOR LOWER EXTREMITIES BUT IS ABLE TO GET UP FROM SUPINE TO SIT. PATIENT SURPRISINGLY WAS NOT UNCOMFORTABLE AND HAS AGREED TO TRIAL SLEEPING AND GETTING INTO BED TO 3 TIMES A DAY TO TAKE PRESSURE OFF OF HIS WOUND. WRITTEN PROGRAM PROVIDED FOR SEATED EXERCISES. TO BE COMPLETED 3 TIMES A DAY. PATIENT INSTRUCTED TO USE WALKER AT ALL TIMES AND TO AMBULATE HOURLY TOLERATED. PATIENT IS APPROPRIATE CANDIDATE FOR SKILLED PHYSICAL THERAPY TO ADDRESS PHYSICAL IMPAIRMENTS AND FUNCTIONAL LIMITATIONS. PATIENT VERBALIZED AGREEMENT WITH PLAN OF CARE. MD NOTIFIED.] Goal Patient Goal - T O REMAIN SAFE WITH SERVICES AND ASSISTANCE FROM FAMILY AND FRIENDS, TO BE ABLE TO UNDERSTAND AND MANAGE DISEASE PROCESS, TO UNDERSTAND MEDICATION USES, SIDE EFFECTS, AND PRECAUTIONS, AND TO DEMONSTRATE SAFETY MEASURES AND HOME TO PREVENT INJURY. Goal Provider Goal - A PLAN OF CARE WILL BE ESTABLISHED THAT MEETS PATIENT'S ASSISTED NEEDS AND INCLUDES PATIENT GOAL FOR HOME HEALTH. Goal Provider Goal - SYMPTOMS OF ANXIETY ARE IDENTIFIED AND INTERVENTIONS INITIATED TO ENABLE PATIENT TO UNDERSTAND AND MANAGE FEELINGS THROUGHOUT EPISODE. Goal Provider Goal - PATIENT/CAREGIVER WILL VERBALIZE/DEMONSTRATE MANAGEMENT OF ASHD CARDIAC DISEASE PROCESS AND EXACERBATIONS WILL BE IDENTIFIED AND PROMPTLY REPORTED THROUGHOUT THE CERTIFICATION PERIOD. Goal Provider Goal - EXACERBATIONS OF VIRAL INTESTINAL INFECTION GASTROINTESTINAL DISEASE WILL BE PROMPTLY IDENTIFIED AND INTERVENTIONS IMPLEMENTED TO MINIMIZE RISKS TO PATIENT BY END OF EPISODE. Goal Provider Goal - PATIENT/CAREGIVER WILL VERBALIZE UNDERSTANDING OF CHRONIC KIDNEY DISEASE, STAGE 3A GENITOURINARY DISEASE PROCESS, AND EXACERBATIONS OF GENITOURINARY DISEASE WILL BE PROMPTLY IDENTIFIED FOR EARLY INTERVENTION THROUGHOUT THE CERTIFICATION PERIOD. Goal Provider Goal - PATIENT/CAREGIVER WILL VERBALIZE/DEMONSTRATE MANAGEMENT OF OBSTRUCTIVE SLEEP APNEA RESPIRATORY DISEASE PROCESS. CHANGES IN RESPIRATORY STATUS WILL BE IDENTIFIED AND REPORTED TO PHYSICIAN FOR PROMPT INTERVENTION THROUGHOUT THE CERTIFICATION PERIOD. Goal Provider Goal - PATIENT/CAREGIVER WILL VERBALIZE/DEMONSTRATE UNDERSTANDING OF S/S OF INFECTION AND INFECTION CONTROL MEASURES. SIGNS AND SYMPTOMS OF INFECTION WILL BE IDENTIFIED AND PHYSICIAN NOTIFIED FOR PROMPT INTERVENTION THROUGHOUT THE CERTIFICATION PERIOD. Goal Provider Goal - WOUND CARE WILL BE COMPLETED AND PATIENT WILL HAVE IMPROVED WOUND STATUS EVIDENCED BY NO SIGNS AND SYMPTOMS OF INFECTION, DECREASED WOUND SIZE, AND/OR NO COMPLICATIONS BY THE END OF THE CERTIFICATION PERIOD. Goal Provider Goal - PATIENT/CAREGIVER WILL VERBALIZE/DEMONSTRATE UNDERSTANDING OF SAFE PROVISION OF ADLS BY THE END OF THE CERTIFICATION PERIOD. Goal Provider Goal - PATIENT/CAREGIVER WILL VERBALIZE SIGNS AND SYMPTOMS OF EXACERBATION OF GOUT TO REPORT TO NURSE/PHYSICIAN THROUGHOUT THE CERTIFICATION PERIOD. Goal Provider Goal - PATIENT/CAREGIVER WILL BE ABLE TO APPLY PRINCIPLES OF ENVIRONMENTAL MODIFICATION TO MAINTAIN THE LEVEL OF SAFETY FOR THE LOW VISION PATIENT WITHIN THE HOME SETTING AND PREVENT FALL/INJURY THIS EPISODE Goal Provider Goal - A PHYSICAL THERAPY EVALUATION TO BE COMPLETED WITH RECOMMENDATIONS AND/OR WRITTEN PLAN OF TREATMENT ESTABLISHED FOR PHYSICIAN S SIGNATURE. Goal Provider Goal - PATIENT/CAREGIVER WILL VERBALIZE SIGNS AND SYMPTOMS OF HYPERTENSION AND WILL BE ABLE TO DEMONSTRATE ABILITY TO MANAGE EXACERBATION BY END OF THE EPISODE. Goal Provider Goal - PATIENT/CAREGIVER WILL VERBALIZE /DEMONSTRATE APPROPRIATE ENVIRONMENTAL/SAFETY MODIFICATIONS IN RESPONSE TO BEHAVIOR/COGNITIVE CHANGES ASSOCIATED WITH DEMENTIA DIAGNOSIS THROUGHOUT THE CERTIFICATION PERIOD. Goal Provider Goal - PATIENT/CAREGIVER WILL VERBALIZE UNDERSTANDING OF FRACTURE OF T11-T12 VERTEBRA MUSCULOSKELETAL DISEASE INCLUDING SIGNS AND SYMPTOMS, MANAGEMENT, AND PRESCRIBED TREATMENT REGIMEN BY END OF EPISODE. Goal Provider Goal - PATIENT WILL HAVE SUPPORT MEASURES ESTABLISHED TO PREVENT HOSPITALIZATION AND ED USE AND PATIENT/CAREGIVER WILL VERBALIZE/DEMONSTRATE METHODS TO REDUCE AVOIDABLE HOSPITALIZATION AND ED USE BY END OF EPISODE. Goal Provider Goal - PATIENT/CAREGIVER WILL VERBALIZE UNDERSTANDING OF DISCHARGE PLANNING INSTRUCTIONS BY DATE OF DISCHARGE. Goal Provider Goal - PATIENT/CAREGIVER WILL VERBALIZE/DEMONSTRATE EFFECTIVE ENVIRONMENTAL SAFETY AND FALL PREVENTION STRATEGIES, WILL REMAIN SAFE IN THE COMMUNITY, AND WILL BE FREE OF DANGER TO SELF AND OTHERS THROUGHOUT THE CERTIFICATION PERIOD. Goal Provider Goal - PATIENT/CAREGIVER WILL DEMONSTRATE UNDERSTANDING OF PHARMACOLOGIC AND NONPHARMACOLOGIC PAIN CONTROL MEASURES AND PATIENT WILL HAVE IMPROVEMENT IN PAIN INTERFERING WITH ACTIVITY EVIDENCED BY PAIN AT A LEVEL THAT IS ACCEPTABLE TO THE PATIENT AND PAIN LEVEL WITHIN ESTABLISHED PARAMETERS BY END OF CERTIFICATION PERIOD. Goal Provider Goal - PATIENT/CAREGIVER WILL VERBALIZE UNDERSTANDING OF PRESSURE ULCER PREVENTION BY END OF THE EPISODE. Goal Provider Goal - PATIENT/CAREGIVER WILL VERBALIZE/DEMONSTRATE UNDERSTANDING OF THE MANAGEMENT OF DEPRESSION THROUGHOUT THE CERTIFICATION PERIOD AND SYMPTOMS ARE IDENTIFIED AND MANAGED TO MAINTAIN PATIENT SAFETY IN THE HOME. Goal Provider Goal - PATIENT/CAREGIVER WILL DEMONSTRATE METHODS TO MANAGE WOUNDS AND MAINTAIN HEALTHY SKIN A RESULT OF PARTICIPATION IN CLEAR SPECIALTY PROGRAM. Goal Provider Goal - PATIENT WILL REMAIN SAFE, FREE FROM HOSPITALIZATION, AND ADHERE TO THE SKILLED NURSE S PLAN OF CARE THROUGHOUT THE CERTIFICATION PERIOD. Goal Provider Goal - PATIENT/CAREGIVER WILL VERBALIZE UNDERSTANDING OF EDUCATION PROVIDED ON MEDICATIONS BY THE END OF THE CERTIFICATION PERIOD. Goal Provider Goal - PHYSICAL THERAPY EVALUATION TO BE COMPLETED WITH RECOMMENDATIONS AND/OR WRITTEN TREATMENT PLAN OF CARE ESTABLISHED FOR THE PHYSICIAN S SIGNATURE PATIENT/CAREGIVER WILL PERFORM THERAPEUTIC EXERCISE/S AND DEMONSTRATE PARTICIPATION IN A HOME PROGRAM. PATIENT/CAREGIVER WILL DEMONSTRATE IMPROVED BED MOBILITY TECHNIQUES. PATIENT/CAREGIVER WILL DEMONSTRATE SAFE TRANSFERS USING APPROPRIATE ASSISTIVE DEVICE, BODY MECHANICS AND EQUIPMENT. PATIENT/CAREGIVER WILL DEMONSTRATE IMPROVED GAIT TECHNIQUES TO MINIMIZE RISK OF INJURY. PATIENT/CAREGIVER WILL DEMONSTRATE/VERBALIZE UNDERSTANDING OF RECOMMENDATIONS TO INCREASE SAFETY IN THE HOME AND FALL PREVENTION. PATIENT/CAREGIVER WILL DEMONSTRATE IMPROVED BALANCE AND REDUCE THE RISK OF FALLS AND INJURY. Encounters Start Date/Time End Date/Time Encounter Type Admission Type Attending [facility] Care Facility Care Department Encounter ID Discharge Date Discharge Status Discharge Condition Discharge Reason Percent Goals Met 2024-12-08 00:00:00 2025-02-05 00:00:00 Outpatient JOSEFINA ZENDEJAS [facility] [id number]
== END 2025-01-03 09:58 | disposition home or self-care (01) ==
LOC: HO.HUSH 09:02
PROVIDERS: PCP Internal Medicine Endocrinology, Diabetes & Metabolism; Visit Provider Urology
DX: C61 Malignant neoplasm of prostate (principal); E29.1 Testicular hypofunction
CPT/HCPCS: 99213; G2211

== ENCOUNTER → 2025-01-03 09:01 | Outpatient (BNVA) | payer MEDICARE, OTHER, SELFPAY | PROVIDERS: PCP Internal Medicine Endocrinology, Diabetes & Metabolism; Visit Provider Urology | DX: E29.1 Testicular hypofunction (principal); C61 Malignant neoplasm of prostate | CPT/HCPCS: 99212 ==